=== PATIENT | male | born 1940 | race Caucasian/White ===

== ENCOUNTER 2017-10-05 14:36 | Emergency (ER) | payer MEDICARE, MEDICAID, SELFPAY ==
[2017-10-05 14:36] VITALS: BP 162/70; PULSE 82; RESP 16; TEMP 36.7; O2SAT 97; BMI 43.0
--- NOTE | 2017-10-05 14:54 | CT_ITS ---
STUDY: CT BRAIN WITHOUT CONTRAST REASON FOR EXAM: Male, 77 years old. Fall yesterday, possible syncope. RADIATION DOSAGE (If Supplied By Facility): CTDIvol = ( 44.99 ) mGy, DLP = ( 796.11 ) mGycm TECHNIQUE: Transaxial CT imaging of the brain was performed without administration of intravenous contrast material. Individualized dose optimization techniques were used for this CT. COMPARISON: None. FINDINGS: Normal soft tissue structures. Normal calvarium. There is moderate cerebral atrophy with widening of the extra-axial spaces and ventricular dilatation. There are areas of decreased attenuation within the white matter tracts of the supratentorial brain, consistent with microvascular disease changes. There are small punctate calcifications of the basal ganglia which are seen in the aging brain as a normal variant. Normal brainstem. Normal cerebellum. There is no intracranial hemorrhage. There are no findings of an acute ischemic infarction. Normal visualized paranasal sinuses. CT/Brain/Head without Contrast IMPRESSION: Senescent changes with no evidence of acute intracranial bleed, mass or ischemia. Electronically Signed: Jose A Garrido DO at 15:44 EST , Service support ,
--- NOTE | 2017-10-05 14:55 | RAD_ITS ---
STUDY: X-RAY - RIGHT SHOULDER REASON FOR EXAM: Male, 77 years old. Fall yesterday. Pain. TECHNIQUE: 5 view(s) of the shoulder. COMPARISON: None. FINDINGS: There is generalized osteopenia. There is mild arthrosis of the glenohumeral and acromioclavicular joints. The soft tissue structures are unremarkable. Normal visualized pulmonary apex. RAD/Shoulder min 2 Views IMPRESSION: Osteopenia with arthrosis of the acromioclavicular and glenohumeral joints. No acute osseous abnormality. Electronically Signed: Farhat Addison MD at 15:56 EST , Service support ,
[2017-10-05 15:15] LABS: Hematocrit 26.2 % (40-54); Hemoglobin 8.1 g/dl (13.0-16.5); Mean Corp Hgb Conc 30.9 g/gl (32-36); Mean Corpuscular Hgb 33.3 pg (27.0-32.0); Mean Corpuscular Volume 107.8 fL (80-94); Mean Platelet Vol. 11.7 fl (6.2-12.0); Platelet Count 95 K/mm3 (150-450); RBC Distribution Width CV 15.8 % (11.6-14.6); RBC Distribution Width SD 61.5 fl (35.1-43.9); Red Blood Count 2.43 M/mm3 (4.6-6.2); White Blood Count 6.3 K/mm3 (4.4-11.0)
[2017-10-05 15:16] LABS: Scan Indicated on CBC? Y/N NO
[2017-10-05 15:23] LABS: International Normalized Ratio 1.4; Prothrombin Time (Protime)PT. 16.5 SECONDS (11.7-14.9)
--- NOTE | 2017-10-05 15:25 | RAD_ITS ---
STUDY: X-RAY - LEFT KNEE REASON FOR EXAM: Male, 77 years old. Fall yesterday with bruising and pain. TECHNIQUE: 4 view(s) of the knee. COMPARISON: None. FINDINGS: There is generalized osteopenia. There is mild arthrosis of the medial and lateral femorotibial compartments. There is moderate arthrosis of the patellofemoral compartment with lateral tilt and subluxation of the patella. No acute abnormalities are identified. RAD/Knee 4 or More Views IMPRESSION: Osteopenia with tricompartmental arthrosis. No acute pathology. Electronically Signed: Farhat Addison MD at 15:52 EST , Service support ,
[2017-10-05 15:28] LABS: Anion Gap 9 (5-15); BUN 34 mg/dL (7-18); BUN/Creat Ratio 18.1 RATIO (10-20); Calcium,Total 8.5 mg/dL (8.5-10.1); Chloride 106 mmol/L (98-107); Creatinine, Serum 1.88 mg/dL (0.70-1.30); EST Glomerular Filtration Rate 37 mL/min (>60); Est Glom Filt Rate - Afr Amer 45 mL/min (>60); Estimated Creatinine Clearance 32.38 ml/min; Glucose 183 mg/dL (74-106); Potassium 4.8 mmol/L (3.5-5.1); Sodium Level 140 mmol/L (136-145)
--- NOTE | 2017-10-05 16:12 | ED.DCSUM_ITS ---
- ER Visit Summary Date of Service: 10/05/17 Chief Complaint: Visiting yesterday. He fell when he was outside secondary to icy conditions. History of Present Illness: The patient is a 77 M had a mechanical fall secondary to icy conditions. He remembers falling. He members waking up on the ground. He presents today because of increased headache, right shoulder and left knee pain. He has had nausea and vomiting ?2. He is on no antiplatelet or anticoagulant. He does have history of cirrhosis of the liver and states he bruises easily. He denies any hematemesis, melena hematochezia. He denies any double vision, blurred vision loss of vision. Denies trouble with speech or swallowing. Denies ringing in his ears. Denies bleeding from his nose. He denies any chest pain, palpitations, orthopnea or PND. He denies shortness of breath, cough, dyspnea on exertion. He does complain of abdominal wall pain. Per review of old records he has history of type 2 diabetes requiring insulin, hypertension, hyperlipidemia, end-stage renal disease (stage III), diabetic neuropathy, chronic anemia and hypothyroidism. Physical Examination: Patient's vital signs are noted and remarkable blood pressure of 167/70. Head is atraumatic normocephalic. Pupils are equal round reactive. Extraocular muscles are intact. TMs are pearly white with landmarks noted. Nares patent with no drainage. Posterior pharynx without erythema or exudate. Uvula is midline. There is no dysphonia or dysphasia. Trachea is midline. There is no stridor with auscultation of the neck. There is no clinical findings of basal skull fracture. There is no pain the patient's cervical spine. He does have pain the patient over the proximal humerus. Internal/external rotation causes discomfort as well as abduction. Axillary, median, radial and ulnar function intact. Heart is regular without murmur, gallop or rub. S1 and S2 are normal. Lungs are clear to auscultation with good movement of air bilaterally. Abdomen is prominent with multiple bruises and abrasions noted. There is no guarding or peritoneal findings. He has no pain the patient the pelvis. Examination of the right lower extremity reveals no evidence of trauma with no pain the patient over the greater trochanteric region, patella, joint line, lateral medial malleolus or foot. Examination left lower extremity reveals no pain patient of the greater trochanteric region. There is soft tissue swelling with ecchymosis and pain palpation over the patella. Difficult to determine whether this is soft tissue swelling versus an effusion. He has full extension and flexion. There is no laxity with varus valgus stress testing. Yana's test was negative. There is no pain the patient the lateral medial malleolus. He does have palpable pulses upper and lower extremity. They are diminished lower extremity. GCS is 15. Patient is alert and oriented ?3. Motor is 5/5. Sensation is intact. DTRs are symmetric without clonus or Babinski. Cranial nerves II through XII are intact. Finger to nose to finger was performed adequately. Test Results: The head reveals no acute process per radiologist read and my review. Three-view x-ray the shoulder interpreted by me reveals significant arthritic changes no evidence of fracture. Or view x-ray of the knee reveals significant arthritic changes with no effusion or fracture noted. Hemoglobin is 8.1 with a hematocrit of 26.2. Platelet counts 95,000. He has had low hemoglobin is in the past. The most recent hemoglobin was 6 months ago was 9.1. Glucose is 183 with a creatinine of 1.84. INR is 1.4. Prior creatinine was 1.59 on March 25, 2017. Emergency Department Course and Treatment: Patient had fall with loss of conscious and the fact that he is rated in the age of 77 [address] [place] [address] head rule and the [place] rule radiologic imaging is warranted. Because he has limited range of motion of the shoulder with pain the patient with proximal humerus 8 x-ray was obtained to rule out fracture. Because of the soft tissue swelling with discoloration and pain palpation over the left patella and x-ray was obtained. Because he appears pale CBC was obtained and to assess his platelet count. Since he has history of cirrhosis with history of bruising easily a PT/INR was obtained which was unremarkable. Treatment Plan: Ice to areas of discomfort and [place] since NSAIDs are contraindicated in this patient for numerous reasons. Disposition: To home with daughter Impression: 1. Concussion with loss of consciousness encounter 2. Left knee contusion initial encounter 3. Right shoulder contusion initial encounter 4. Anemia with thrombus cytopenia secondary to cirrhosis of liver, chronic 5. Hyperglycemia type II diabetic 6. End-stage renal disease chronic This note was generated with [employer] software. It may contain incorrect words, spelling, and punctuation that were not noted in review of the chart prior to signing ED Disposition - Plan for ED Patient: Disposition: Home or Assisted Living Chief Complaint: Fall Instructions: ED Prevention Fall, ED Concussion, ED Contusion Lower Ext, ED Contusion Shoulder Prescriptions: Hydrocodone Bitart/Apap 5-325 [[place] 5MG-325MG] 1 tab PO Q6H PRN PRN 4 Days #14 tab PRN Reason: Pain Referrals: Kayla Bernstein NP-C [Primary Care Provider] - 1 Week if not improving
[2017-10-05] MEDS: HYDROcodone Bitartrate/Apap 5/325 Tablet PO (16:22)
[2017-10-05 16:26] VITALS: BP 150/72; PULSE 62; RESP 16; O2SAT 96
== END 2017-10-05 16:26 | disposition home or self-care (01) ==
PROVIDERS: Emergency Provider Emergency Medicine; Family Provider Nurse Practitioner Family; PCP Nurse Practitioner Family
DX: S06.0X9A Concussion with loss of consciousness of unspecified duration, initial encounter (principal); S30.1XXA Contusion of abdominal wall, initial encounter; S80.02XA Contusion of left knee, initial encounter; S40.011A Contusion of right shoulder, initial encounter; W00.0XXA Fall on same level due to ice and snow, initial encounter; Y93.9 Activity, unspecified; Y92.9 Unspecified place or not applicable; Y99.9 Unspecified external cause status; K74.60 Unspecified cirrhosis of liver; I12.0 Hypertensive chronic kidney disease with stage 5 chronic kidney disease or end stage renal disease; E11.22 Type 2 diabetes mellitus with diabetic chronic kidney disease; N18.6 End stage renal disease; E11.40 Type 2 diabetes mellitus with diabetic neuropathy, unspecified; E11.65 Type 2 diabetes mellitus with hyperglycemia; D69.6 Thrombocytopenia, unspecified; D64.9 Anemia, unspecified; E03.9 Hypothyroidism, unspecified; E78.5 Hyperlipidemia, unspecified; E66.9 Obesity, unspecified; Z79.4 Long term (current) use of insulin; Z79.899 Other long term (current) drug therapy
CPT/HCPCS: 70450; 73030; 73564; 80048; 85027; 85610; 99284; A4216

== ENCOUNTER → 2017-10-10 10:19 | Outpatient (CLI) | payer MEDICARE, MEDICAID, SELFPAY ==
[2017-10-10 11:35] LABS: Hematocrit 25.6 % (40-54); Hemoglobin 7.9 g/dl (13.0-16.5); Mean Corp Hgb Conc 30.9 g/gl (32-36); Mean Corpuscular Hgb 33.2 pg (27.0-32.0); Mean Corpuscular Volume 107.6 fL (80-94); Platelet Count 107 K/mm3 (150-450); RBC Distribution Width SD 61.4 fl (35.1-43.9); Red Blood Count 2.38 M/mm3 (4.6-6.2); White Blood Count 5.7 K/mm3 (4.4-11.0)
[2017-10-10 11:36] LABS: Scan Indicated on CBC? Y/N NO
[2017-10-10 12:00] LABS: Protein, Urine (Random) 22.3 mg/dL (<11.9); Protein:Creat Ratio 112 mg/g CRE (0-200)
[2017-10-10 12:08] LABS: Albumin, Serum 3.1 g/dL (3.2-5.0); BUN 31 mg/dL (7-18); BUN/Creat Ratio 16.8 RATIO (10-20); Chloride 101 mmol/L (98-107); Creatinine, Serum 1.84 mg/dL (0.70-1.30); EST Glomerular Filtration Rate 38 mL/min (>60); Est Glom Filt Rate - Afr Amer 46 mL/min (>60); Glucose 212 mg/dL (74-106); Phosphorus 3.1 mg/dL (2.5-4.9); Potassium 4.4 mmol/L (3.5-5.1); Sodium Level 134 mmol/L (136-145)
[2017-10-10 12:11] LABS: PTHIN 33.4 pg/mL (18.4-80.1)
== END ==
PROVIDERS: Family Provider Nurse Practitioner Family; PCP Nurse Practitioner Family; Visit Provider Internal Medicine Nephrology
DX: E11.22 Type 2 diabetes mellitus with diabetic chronic kidney disease (principal); N18.3 Chronic kidney disease, stage 3 (moderate); Z79.4 Long term (current) use of insulin; Z79.899 Other long term (current) drug therapy
CPT/HCPCS: 36415; 80069; 82570; 83970; 84156; 85027

== ENCOUNTER → 2017-10-28 16:02 | Outpatient (CLI) | payer MEDICARE, MEDICAID, SELFPAY ==
[2017-10-28 18:04] LABS: International Normalized Ratio 1.4; Prothrombin Time (Protime)PT. 17.2 SECONDS (11.7-14.9)
[2017-10-28 18:05] LABS: Partial Thromboplast Time 37.7 Seconds (24.1-36.2)
[2017-10-28 18:10] LABS: Anion Gap 9 (5-15); BUN 37 mg/dL (7-18); BUN/Creat Ratio 20.3 RATIO (10-20); Calcium,Total 8.3 mg/dL (8.5-10.1); Chloride 106 mmol/L (98-107); Creatinine, Serum 1.82 mg/dL (0.70-1.30); EST Glomerular Filtration Rate 38 mL/min (>60); Est Glom Filt Rate - Afr Amer 47 mL/min (>60); Glucose 151 mg/dL (74-106); Potassium 4.7 mmol/L (3.5-5.1); Sodium Level 140 mmol/L (136-145)
[2017-10-30 09:24] LABS: AFP, Tumor Marker 3.9 ng/mL (0.0-8.3)
== END ==
PROVIDERS: Family Provider Nurse Practitioner Family; PCP Nurse Practitioner Family; Visit Provider Internal Medicine Gastroenterology
DX: K74.60 Unspecified cirrhosis of liver (principal); Z79.899 Other long term (current) drug therapy
CPT/HCPCS: 36415; 80048; 82105; 85610; 85730

== ENCOUNTER → 2017-11-11 11:15 | Outpatient (CLI) | payer MEDICARE, MEDICAID, SELFPAY ==
[2017-11-11 14:51] LABS: Anion Gap 9 (5-15); BUN 48 mg/dL (7-18); BUN/Creat Ratio 23.3 RATIO (10-20); Calcium,Total 8.9 mg/dL (8.5-10.1); Chloride 101 mmol/L (98-107); Creatinine, Serum 2.06 mg/dL (0.70-1.30); EST Glomerular Filtration Rate 33 mL/min (>60); Est Glom Filt Rate - Afr Amer 40 mL/min (>60); Glucose 111 mg/dL (74-106); Potassium 4.5 mmol/L (3.5-5.1); Sodium Level 136 mmol/L (136-145)
== END ==
PROVIDERS: Family Provider Nurse Practitioner Family; PCP Nurse Practitioner Family; Visit Provider Internal Medicine Gastroenterology
DX: K74.60 Unspecified cirrhosis of liver (principal); Z79.899 Other long term (current) drug therapy
CPT/HCPCS: 36415; 80048

== ENCOUNTER → 2017-12-12 10:26 | Outpatient (CLI) | payer MEDICARE, MEDICAID, SELFPAY ==
[2017-12-12 12:28] LABS: Anion Gap 8 (5-15); BUN 46 mg/dL (7-18); BUN/Creat Ratio 21.2 RATIO (10-20); Calcium,Total 8.3 mg/dL (8.5-10.1); Chloride 103 mmol/L (98-107); Creatinine, Serum 2.17 mg/dL (0.70-1.30); EST Glomerular Filtration Rate 31 mL/min (>60); Est Glom Filt Rate - Afr Amer 38 mL/min (>60); Glucose 171 mg/dL (74-106); Sodium Level 135 mmol/L (136-145)
== END ==
PROVIDERS: Family Provider Nurse Practitioner Family; PCP Nurse Practitioner Family; Visit Provider Internal Medicine Gastroenterology
DX: K74.60 Unspecified cirrhosis of liver (principal); Z79.899 Other long term (current) drug therapy
CPT/HCPCS: 36415; 80048

== ENCOUNTER 2017-12-19 16:57 | Emergency (ER) | payer MEDICARE, SELFPAY ==
[2017-12-19 16:58] VITALS: BP 137/68; PULSE 80; RESP 16; TEMP 35.9; O2SAT 100; BMI 39.3
--- NOTE | 2017-12-19 17:52 | EKG12_ITS ---
Test Reason : SOB Blood Pressure : / mmHG Vent. Rate : 077 BPM Atrial Rate : 077 BPM P-R Int : 174 ms QRS Dur : 090 ms QT Int : 370 ms P-R-T Axes : 041 039 046 degrees QTc Int : 418 ms Normal sinus rhythm Normal ECG Confirmed by OTILIA BARDALES ([id number]), city editor ANGIE ORTEGA ([id number]) on 12/23/2017 3:58:17 PM Referred By: AUDRA Confirmed By:OTILIA BARDALES
--- NOTE | 2017-12-19 18:04 | RAD_ITS ---
STUDY: X-RAY CHEST REASON FOR EXAM: Male, 77 years old. Esophageal pain. History of esophageal polyps TECHNIQUE: 2 views COMPARISON: Prior portable chest of November 23, 2016. FINDINGS: Lung melendez are moderately well-expanded without new consolidation or focal atelectasis. Negative for substantial pleural effusion. Normal size heart. Normal mediastinum and jeannine. Normal visualized pulmonary arteries. There is atherosclerotic calcification of the aortic arch with tortuosity. There are diffuse degenerative changes of the visualized thoracic spine. Normal visualized ribs, clavicles, and shoulders. There is no demonstrated abnormality of the visualized soft tissue structures of the upper abdomen. RAD/Chest PA and Lateral IMPRESSION: No acute cardiopulmonary findings or changes. Negative for new consolidation, focal atelectasis, pleural effusion or cardiomegaly. Electronically Signed: Vannesa Gusman MD at 18:33 EDT , Service support ,
[2017-12-19 18:26] LABS: Bedside Glucose 132 mg/dL (70-110)
[2017-12-19 18:50] VITALS: BP 148/66; PULSE 78; RESP 20; O2SAT 96
[2017-12-19 19:20] LABS: Absolute Lymphocyte Count 0.72 X10^3/ul (0.83-4.51); Absolute Neutrophil Count 4.8 X10^3/uL (2.0-7.7); Basophil# 0.01 X10^3/uL; Basophil% 0.2 % (0-1); Eosinophil# 0.02 X10^3/uL; Eosinophils% 0.3 % (0-5); Hematocrit 22.6 % (40-54); Hemoglobin 7.1 g/dl (13.0-16.5); Lymphocyte # 0.72 X10^3/ul (4.0); Lymphocyte % 10.9 % (19-41); Mean Corp Hgb Conc 31.4 g/gl (32-36); Mean Corpuscular Volume 111.3 fL (80-94); Mean Platelet Vol. 11.7 fl (6.2-12.0); Monocyte# 0.98 X10^3/uL; Monocyte% 14.9 % (0-10); Neutrophil # 4.81 X10^3/uL (2.7-7.7); Neutrophil % 73.1 % (47-70); Platelet Count 84 K/mm3 (150-450); RBC Distribution Width CV 16.6 % (11.6-14.6); RBC Distribution Width SD 67.1 fl (35.1-43.9); Red Blood Count 2.03 M/mm3 (4.6-6.2); White Blood Count 6.6 K/mm3 (4.4-11.0)
[2017-12-19 19:29] LABS: Differential Indicated SCAN CRITERIA MET; POSITIVE COUNT NO; POSITIVE DIFFERENTIAL NO; POSITIVE MORPHOLOGY YES
[2017-12-19 19:30] LABS: ALB/GLOB Ratio 0.7 RATIO (0.9-2.4); AST(SGOT) 48 U/L (15-37); Alanine Aminotransfer ALT/SGPT 26 U/L (16-61); Albumin, Serum 3.2 g/dL (3.2-5.0); Alkaline Phosphatase 46 U/L (45-117); Anion Gap 7 (5-15); BUN 48 mg/dL (7-18); Calcium,Total 8.4 mg/dL (8.5-10.1); Chloride 105 mmol/L (98-107); Creatinine, Serum 2.18 mg/dL (0.70-1.30); EST Glomerular Filtration Rate 31 mL/min (>60); Est Glom Filt Rate - Afr Amer 38 mL/min (>60); Estimated Creatinine Clearance 29.74 ml/min; Globulin 4.6 g/dL (2.2-4.2); Glucose 125 mg/dL (74-106); Lipase 4224 U/L (73-393); Potassium 5.7 mmol/L (3.5-5.1); Protein, Total 7.8 g/dL (6.4-8.2); Sodium Level 136 mmol/L (136-145)
[2017-12-19 19:45] LABS: International Normalized Ratio 1.4; Prothrombin Time (Protime)PT. 17.6 SECONDS (11.7-14.9)
[2017-12-19 19:46] LABS: Partial Thromboplast Time 36.8 Seconds (24.1-36.2)
[2017-12-19 19:56] LABS: Anisocytosis 1+; Macrocytosis 2+; Polychromasia RARE
[2017-12-19 19:58] LABS: Ovalocyte RARE
[2017-12-19 20:48] VITALS: BP 161/67; PULSE 80; RESP 18; O2SAT 99
[2017-12-19 20:49] VITALS: BP 161/67; PULSE 80; RESP 18; TEMP 35.9; O2SAT 99
[2017-12-19] MEDS: Calcium Chloride 1 GM/10 ML Syringe IV (21:18)
[2017-12-19] MEDS: Dextrose 50%-Water 25 GM/50 ML DISP.SYRIN IV (21:18)
--- NOTE | 2017-12-19 21:46 | ED.DCSUM_ITS ---
- ER Visit Summary Date of Service: 12/19/17 Chief Complaint: Chest and epigastric pain History of Present Illness: The patient is a 77 M who presents with substernal chest pain and epigastric pain that has been getting worse over the past couple days. Patient states the pain is over the substernal and epigastric areas. Patient denies any radiation of the pain. Patient describes the pain is constant aching. Patient states nothing seems to make the pain better or worse. Family states that the patient has a history of anemia and his most recent hemoglobin was 7.1. Patient states his stools have been dark but he takes iron. Patient denies any shortness of breath. Patient denies any nausea or vomiting. Physical Examination: Vital signs are stable. Patient is afebrile. Patient is in no acute distress. Patient does have some pallor. Pupils are equal, round, reactive to light bilaterally. Extraocular muscles are intact. The cavity is somewhat pale and clear. Neck is supple. Trachea is midline. There is no JVD or lymphadenopathy. Heart was regular rate and rhythm. Lungs are clear and equal bilateral. Abdomen is soft. There is some epigastric tenderness. There is no rebound or guarding noted. Cranial nerves II through XII are intact. There are no focal motor or sensory deficits noted. The remaining physical exam is within normal limits. Test Results: EKG showed normal sinus rhythm with a rate of 77. There are no acute ST or T-wave changes. CBC shows a hemoglobin of 7.1 and hematocrit 22.6. Creatinine was elevated 2.18 which is chronic. BUN was also elevated at 48. Lipase was elevated at 4224. INR was elevated at 1.4. Emergency Department Course and Treatment: Case was discussed with the hospitalist. There is no gastroenterology coverage here at [facility] this weekend. He recommended transferring the patient to another facility. Patient and family requested to be transferred to [facility]. The case was discussed with the hospitalist from [facility]. Patient will be accepted there under the service of Dr. Han. Patient and family understood and were agreeable with the plan. All questions were answered. Disposition: Transferred to [facility] Impression: Acute pancreatitis, anemia This note was generated with [employer] dictation software. It may contain incorrect words, spelling, and punctuation that were not noted in review of the chart prior to signing ED Disposition - Plan for ED Patient: Disposition: Acute Care Hospital - Other Chief Complaint: Other, Pain/Inj Diagnosis: Acute pancreatitis, Anemia Referrals: Kayla Bernstein NP-C [Primary Care Provider] -
--- NOTE | 2017-12-19 23:14 | ED.RN ---
CALLED THE [facility] TRANSFER LINE AND SPOKE WITH SHANICE TO INITIATE A TRANSFER TO [facility]. SHANICE TOOK PATIENT'S INFORMATION AND STATED SHE WILL CONTACT [facility] AND CALL US BACK.
[2017-12-19 23:26] VITALS: BP 135/59; PULSE 89; RESP 18; O2SAT 95
[2017-12-20] MEDS: Morphine 4 MG/ML Syringe IV (00:20)
[2017-12-20 00:25] VITALS: BP 138/66; PULSE 84; RESP 18; O2SAT 96
[2017-12-20 00:36] LABS: Bedside Glucose 113 mg/dL (70-110)
[2017-12-20 02:00] VITALS: BP 134/70; PULSE 85; RESP 17; O2SAT 95
[2017-12-20 02:01] VITALS: BP 134/70; PULSE 85; RESP 17; TEMP 35.9; O2SAT 95
== END 2017-12-20 03:08 | disposition short-term general hospital (02) ==
PROVIDERS: Emergency Provider Emergency Medicine; Family Provider Nurse Practitioner Family; PCP Nurse Practitioner Family
DX: K85.90 Acute pancreatitis without necrosis or infection, unspecified (principal); D64.9 Anemia, unspecified; Z79.4 Long term (current) use of insulin; Z79.899 Other long term (current) drug therapy
CPT/HCPCS: 71046; 80053; 82962; 83690; 85025; 85610; 85730; 93005; 96374; 96375; 99285; J7030; A4216

== ENCOUNTER → 2018-01-27 15:37 | Outpatient (CLI) | payer MEDICARE, MEDICAID, SELFPAY ==
--- NOTE | 2018-01-27 15:37 | DT_ITS ---
This patient was seen during an EMR downtime January 26, 2018 - February 02, 2018. This patient may have a combination of paper and electronic documentation or all paper documentation. All documentation is viewable within the e-chart portion of [employer] for each patient visit.
[2018-02-02 16:11] LABS: Hematocrit 24.6 % (40-54); Hemoglobin 7.7 g/dl (13.0-16.5); Red Blood Count 2.24 M/mm3 (4.6-6.2); White Blood Count 7.6 K/mm3 (4.4-11.0)
[2018-02-02 16:12] LABS: Mean Corp Hgb Conc 31.3 g/gl (32-36); Mean Corpuscular Hgb 34.4 pg (27.0-32.0); Mean Corpuscular Volume 109.8 fL (80-94); Mean Platelet Vol. 13.1 fl (6.2-12.0); Platelet Count 90 K/mm3 (150-450); RBC Distribution Width CV 19.3 % (11.6-14.6)
[2018-02-02 16:13] LABS: Scan Indicated on CBC? Y/N YES- FLAGS NOTED
[2018-02-02 17:20] LABS: Albumin, Serum 3.4 g/dL (3.2-5.0); BUN 42 mg/dL (7-18); BUN/Creat Ratio 19.4 RATIO (10-20); Calcium,Total 8.6 mg/dL (8.5-10.1); Chloride 107 mmol/L (98-107); Creatinine, Serum 2.16 mg/dL (0.70-1.30); EST Glomerular Filtration Rate 32 mL/min (>60); Est Glom Filt Rate - Afr Amer 39 mL/min (>60); Ferritin 36 ng/mL (26-388); Glucose 132 mg/dL (74-106); Iron 308 ug/dL (65-175); Iron Binding Capacity,Total 396 ug/dL (250-450); PERCENT IRON SATURATION 77.8 % (15.0-55.0); Phosphorus 3.7 mg/dL (2.5-4.9); Potassium 5.2 mmol/L (3.5-5.1); Sodium Level 142 mmol/L (136-145)
== END ==
PROVIDERS: Visit Provider Internal Medicine Gastroenterology
DX: K74.60 Unspecified cirrhosis of liver (principal); E11.22 Type 2 diabetes mellitus with diabetic chronic kidney disease; N18.3 Chronic kidney disease, stage 3 (moderate); D64.9 Anemia, unspecified
CPT/HCPCS: 36415; 80069; 82728; 83540; 83550; 85027

== ENCOUNTER → 2018-01-28 09:00 | Outpatient (CLI) | payer MEDICARE, MEDICAID, SELFPAY ==
--- NOTE | 2018-01-28 09:00 | DT_ITS ---
This patient was seen during an EMR downtime January 26, 2018 - February 02, 2018. This patient may have a combination of paper and electronic documentation or all paper documentation. All documentation is viewable within the e-chart portion of [employer] for each patient visit.
== END ==
PROVIDERS: Family Provider Nurse Practitioner Family; PCP Nurse Practitioner Family; Visit Provider Internal Medicine Hematology & Oncology
DX: D64.9 Anemia, unspecified (principal); N18.9 Chronic kidney disease, unspecified; K92.2 Gastrointestinal hemorrhage, unspecified
CPT/HCPCS: 36430; 86850; 86900; 86920; 86922; J7040; P9016; P9040; A4216

== ENCOUNTER → 2018-02-12 08:33 | Outpatient (CLI) | payer MEDICARE, MEDICAID, SELFPAY ==
[2018-02-12] VITALS (7 sets, daily range): BP systolic 109–126; BP diastolic 49–64; PULSE 67–76; RESP 16–18; TEMP 36.4–37; O2SAT 95–98; BMI 40.6
[2018-02-12] MEDS: Acetaminophen 325 MG Tablet 650 MG PO (09:03)
== END ==
PROVIDERS: Family Provider Nurse Practitioner Family; PCP Nurse Practitioner Family; Visit Provider Internal Medicine Hematology & Oncology
DX: Z51.89 Encounter for other specified aftercare (principal); K92.2 Gastrointestinal hemorrhage, unspecified; N18.2 Chronic kidney disease, stage 2 (mild)
CPT/HCPCS: 36430; 86850; 86900; 86920; 86922; J7040; P9016; A4216

== ENCOUNTER → 2018-02-20 08:33 | Outpatient (CLI) | payer MEDICARE, MEDICAID, SELFPAY ==
[2018-02-20] VITALS (9 sets, daily range): BP systolic 115–141; BP diastolic 43–59; PULSE 67–79; RESP 16–18; TEMP 36.2–36.6; O2SAT 96–99; BMI 42.5
[2018-02-20] MEDS: Acetaminophen 325 MG Tablet 650 MG PO (09:02)
[2018-02-20] MEDS: Furosemide 20 MG/2 ML VIAL IV (12:27)
== END ==
PROVIDERS: Family Provider Nurse Practitioner Family; PCP Nurse Practitioner Family; Visit Provider Internal Medicine Hematology & Oncology
DX: K92.2 Gastrointestinal hemorrhage, unspecified (principal); N18.9 Chronic kidney disease, unspecified
CPT/HCPCS: 36430; 86850; 86900; 86920; 86922; J7040; P9016; A4216; J0897; J1940

== ENCOUNTER → 2018-03-11 08:10 | Outpatient (CLI) | payer MEDICARE, MEDICAID, SELFPAY ==
[2018-03-11] VITALS (8 sets, daily range): BP systolic 108–142; BP diastolic 54–78; PULSE 74–82; RESP 16–18; TEMP 36–36.8; O2SAT 96–99; BMI 44.1
[2018-03-11] MEDS: Acetaminophen 325 MG Tablet 650 MG PO (08:28)
[2018-03-11] MEDS: Furosemide 20 MG/2 ML VIAL IV (11:52)
== END ==
PROVIDERS: Family Provider Nurse Practitioner Family; PCP Nurse Practitioner Family; Visit Provider Internal Medicine Hematology & Oncology
DX: Z51.89 Encounter for other specified aftercare (principal); K92.2 Gastrointestinal hemorrhage, unspecified; N18.9 Chronic kidney disease, unspecified
CPT/HCPCS: 36430; 86850; 86900; 86920; 86922; J7040; P9016; A4216; J1940

== ENCOUNTER → 2018-03-24 15:18 | Outpatient (CLI) | payer MEDICARE, MEDICAID, SELFPAY ==
[2018-03-24 18:02] LABS: Anion Gap 9 (5-15); BUN 33 mg/dL (7-18); Calcium,Total 8.4 mg/dL (8.5-10.1); Chloride 109 mmol/L (98-107); Creatinine, Serum 1.74 mg/dL (0.70-1.30); EST Glomerular Filtration Rate 40 mL/min (>60); Est Glom Filt Rate - Afr Amer 49 mL/min (>60); Glucose 132 mg/dL (74-106); Potassium 3.9 mmol/L (3.5-5.1); Sodium Level 146 mmol/L (136-145)
== END ==
PROVIDERS: Family Provider Nurse Practitioner Family; PCP Nurse Practitioner Family; Visit Provider Internal Medicine Gastroenterology
DX: K74.60 Unspecified cirrhosis of liver (principal); E11.9 Type 2 diabetes mellitus without complications
CPT/HCPCS: 36415; 80048; 86850; 86900; 86920; 86922

== ENCOUNTER → 2018-03-25 08:06 | Outpatient (CLI) | payer MEDICARE, MEDICAID, SELFPAY ==
[2018-03-25] VITALS (7 sets, daily range): BP systolic 101–155; BP diastolic 45–73; PULSE 75–95; RESP 16–18; TEMP 36.2–36.7; O2SAT 96–98; BMI 41.3
[2018-03-25] MEDS: Acetaminophen 325 MG Tablet 650 MG PO (08:31)
[2018-03-25] MEDS: Furosemide 20 MG/2 ML VIAL IV (11:57)
== END ==
PROVIDERS: Family Provider Nurse Practitioner Family; PCP Nurse Practitioner Family; Visit Provider Internal Medicine Hematology & Oncology
DX: Z51.89 Encounter for other specified aftercare (principal); K92.2 Gastrointestinal hemorrhage, unspecified; N18.9 Chronic kidney disease, unspecified
CPT/HCPCS: 36430; 86850; 86900; 86920; 86922; J7040; P9016; A4216; J1940

== ENCOUNTER 2018-04-04 14:43 | Emergency (ER) | payer MEDICARE, MEDICAID, SELFPAY ==
[2018-04-04 14:43] VITALS: BP 143/67; PULSE 90; RESP 20; TEMP 36.6; O2SAT 94; BMI 29.5
[2018-04-04 14:56] VITALS: BP 140/62; PULSE 89; RESP 20; O2SAT 95
[2018-04-04 15:07] VITALS: O2SAT 94
--- NOTE | 2018-04-04 15:10 | ED.DCSUM_ITS ---
- ER Visit Summary Date of Service: 04/04/18 Chief Complaint: Shortness of breath History of Present Illness: The patient is a 77 M the family reports constant cruz between fluid retention and kidney function. Patient has had increasing swelling over the past couple weeks. His fingertips of his left hand split open this week because they are so puffy. He has had minimal shortness of breath at rest but increased shortness of breath with exertion. He denies chest pain. Medication list is reviewed and he is currently on 80 mg of Lasix once a day. Physical Examination: Blood pressure is 143/67, temperature 98, heart rate 90, respiratory rate 20, pulse ox 94% on room air. Patient is sitting upright in a bedside chair. He is in no acute distress and speaking full sentences. Head neck examination is unremarkable. Heart is regular rate and rhythm. He does have a 3/6 murmur noted. Lung sounds are slightly diminished at the bases but overall clear. Abdomen is soft, obese, nontender. Active bowel sounds noted throughout. Upper extremity examination reveals dry cracked skin at the distal fingertips of his left index and long fingers. Lower extremity examination reveals 3+ edema that is symmetric. Test Results: EKG is sinus 88 with no sign of acute ischemia. Two-view chest x- ray shows slightly prominent interstitial markings and mild cardiomegaly. CBC was normal white count. Hemoglobin 7.5 and platelet count is 93,000. Chemistry studies reveal a BUN of 41 and a creatinine of 1.96. LFTs are unremarkable. Troponin is negative. BNP is 135. Emergency Department Course and Treatment: Patient did require assistance getting up to bedside commode. Family states they have assistive devices at home and do feel comfortable with him at home. I spoke with the patient's microfiche camera operator, Dr. Pal Augustine. Patient is to increase his Lasix to 80 mg twice a day for the next 3 days. He also wishes to add Aldactone 25 mg twice daily. The wound to the left hand will be cleansed and dressed. He will be given Keflex to prevent infection. Treatment Plan: [] Disposition: Discharge Impression: CHF This note was generated with [employer] dictation software. It may contain incorrect words, spelling, and punctuation that were not noted in review of the chart prior to signing ED Disposition - Plan for ED Patient: Chief Complaint: Shortness of Breath Referrals: Kayla Bernstein, CHILDREN'S COUNSELOR-C [Primary Care Provider] -
--- NOTE | 2018-04-04 15:20 | RAD_ITS ---
STUDY: X-RAY CHEST REASON FOR EXAM: Male, 77 years old. Shortness of breath TECHNIQUE: PA and lateral views of the chest. COMPARISON: 12/19/2017 FINDINGS: Cardiac monitoring leads overlie the chest. The interstitial markings are prominent. There is no focal consolidation. There is no demonstrated pleural abnormality. There is mild cardiac enlargement. Normal mediastinum and jeannine. Normal visualized pulmonary arteries. There is mild calcification of the aortic arch. There are diffuse degenerative changes of the visualized thoracic spine. The bones are demineralized. There is no demonstrated abnormality of the visualized soft tissue structures of the upper abdomen. RAD/Chest PA and Lateral IMPRESSION: Slightly prominent interstitial markings with mild cardiomegaly. No focal consolidation. Electronically Signed: Kin Groves DO at 15:51 EDT Tel , Service support ,
[2018-04-04 15:46] VITALS: BP 136/60; PULSE 85; RESP 26; O2SAT 96
[2018-04-04 15:51] LABS: Absolute Lymphocyte Count 0.89 X10^3/ul (0.83-4.51); Absolute Neutrophil Count 3.7 X10^3/uL (2.0-7.7); Basophil# 0.02 X10^3/uL; Basophil% 0.4 % (0-1); Eosinophil# 0.19 X10^3/uL; Eosinophils% 3.4 % (0-5); Hematocrit 24.5 % (40-54); Hemoglobin 7.5 g/dl (13.0-16.5); Lymphocyte # 0.89 X10^3/ul (4.0); Lymphocyte % 15.9 % (19-41); Mean Corp Hgb Conc 30.6 g/gl (32-36); Mean Corpuscular Volume 107.9 fL (80-94); Mean Platelet Vol. 12.7 fl (6.2-12.0); Monocyte# 0.77 X10^3/uL; Monocyte% 13.8 % (0-10); Neutrophil # 3.71 X10^3/uL (2.7-7.7); Neutrophil % 66.1 % (47-70); Platelet Count 93 K/mm3 (150-450); RBC Distribution Width CV 20.9 % (11.6-14.6); RBC Distribution Width SD 81.7 fl (35.1-43.9); Red Blood Count 2.27 M/mm3 (4.6-6.2); White Blood Count 5.6 K/mm3 (4.4-11.0)
[2018-04-04 15:56] LABS: Differential Indicated SCAN CRITERIA MET; POSITIVE COUNT NO; POSITIVE DIFFERENTIAL NO; POSITIVE MORPHOLOGY YES
[2018-04-04 15:59] LABS: International Normalized Ratio 1.4
[2018-04-04 16:00] LABS: Partial Thromboplast Time 38.3 Seconds (24.1-36.2)
[2018-04-04 16:12] LABS: AST(SGOT) 28 U/L (15-37); Alanine Aminotransfer ALT/SGPT 25 U/L (16-61); Albumin, Serum 3.2 g/dL (3.2-5.0); Alkaline Phosphatase 64 U/L (45-117); Anion Gap 13 (5-15); BUN 41 mg/dL (7-18); BUN/Creat Ratio 20.9 RATIO (10-20); Bilirubin, Direct 0.33 mg/dL (0.00-0.30); Calcium,Total 8.1 mg/dL (8.5-10.1); Chloride 104 mmol/L (98-107); Creatinine, Serum 1.96 mg/dL (0.70-1.30); EST Glomerular Filtration Rate 35 mL/min (>60); Est Glom Filt Rate - Afr Amer 43 mL/min (>60); Estimated Creatinine Clearance 31.06 ml/min; Globulin 4.3 g/dL (2.2-4.2); Glucose 136 mg/dL (74-106); Potassium 3.8 mmol/L (3.5-5.1); Protein, Total 7.5 g/dL (6.4-8.2); Sodium Level 144 mmol/L (136-145)
[2018-04-04 16:17] LABS: Anisocytosis 1+; Platelet Estimate MOD DEC (ADEQ)
[2018-04-04 16:18] LABS: Hypochromasia RARE; Macrocytosis 1+; Ovalocyte RARE
[2018-04-04 16:50] LABS: BNP,B-Type NATRIURETIC PEPTIDE 135.6 pg/mL (0-100)
[2018-04-04 17:18] VITALS: BP 136/59; PULSE 84; RESP 20; O2SAT 95
--- NOTE | 2018-04-04 18:12 | ED.DEP ---
ED Disposition - Plan for ED Patient: Disposition: Home or Assisted Living Chief Complaint: Shortness of Breath Instructions: ED CHF General Prescriptions: Cephalexin [Keflex] 500 mg PO BID #14 capsule Spironolactone [Aldactone] 25 mg PO BID #60 tablet Referrals: Kayla Bernstein NP-C [Primary Care Provider] - Additional Instructions: Increase your Lasix to 80mg twice a day for the next 3 days only. You will be given Aldactone as a second water pill
[2018-04-04 18:33] VITALS: BP 147/69; PULSE 74; RESP 20; O2SAT 94
== END 2018-04-04 18:46 | disposition home or self-care (01) ==
PROVIDERS: Emergency Provider Emergency Medicine; Family Provider Nurse Practitioner Family; PCP Nurse Practitioner Family
DX: I13.0 Hypertensive heart and chronic kidney disease with heart failure and stage 1 through stage 4 chronic kidney disease, or unspecified chronic kidney disease (principal); E11.22 Type 2 diabetes mellitus with diabetic chronic kidney disease; N18.9 Chronic kidney disease, unspecified; D64.9 Anemia, unspecified; I51.7 Cardiomegaly; S61.402A Unspecified open wound of left hand, initial encounter; X58.XXXA Exposure to other specified factors, initial encounter; Y93.9 Activity, unspecified; Y92.9 Unspecified place or not applicable; Y99.9 Unspecified external cause status; E66.9 Obesity, unspecified; Z79.82 Long term (current) use of aspirin; Z79.4 Long term (current) use of insulin; Z79.899 Other long term (current) drug therapy
CPT/HCPCS: 71046; 80048; 80076; 83880; 84484; 85025; 85610; 85730; 93005; 99284; A4216

== ENCOUNTER → 2018-04-10 09:33 | Outpatient (CLI) | payer MEDICARE, MEDICAID, SELFPAY ==
[2018-04-10] VITALS (7 sets, daily range): BP systolic 116–144; BP diastolic 49–64; PULSE 72–78; RESP 16–18; TEMP 36.2–36.8; O2SAT 95–100; BMI 41.2
[2018-04-10] MEDS: Acetaminophen 325 MG Tablet 650 MG PO (09:56)
[2018-04-10] MEDS: Furosemide 40 MG/4 ML Vial IV (12:57)
== END ==
PROVIDERS: Family Provider Nurse Practitioner Family; PCP Nurse Practitioner Family; Visit Provider Internal Medicine Hematology & Oncology
DX: Z51.89 Encounter for other specified aftercare (principal); K92.2 Gastrointestinal hemorrhage, unspecified; N18.4 Chronic kidney disease, stage 4 (severe)
CPT/HCPCS: 36430; 86850; 86900; 86920; 86922; J7040; P9016; A4216; J1940

== ENCOUNTER 2018-04-18 09:08 | Outpatient (CLI) | payer MEDICARE, MEDICAID, SELFPAY ==
[2018-04-18] VITALS (8 sets, daily range): BP systolic 104–120; BP diastolic 44–52; PULSE 62–84; RESP 16–20; TEMP 36.6–37.4; O2SAT 97–99
[2018-04-18] MEDS: Acetaminophen 325 MG Tablet 650 MG PO (10:43)
[2018-04-18] MEDS: 0.9% NaCl Peripheral Flush Adult/Peds IV ×3 (10:44→12:44)
[2018-04-18] MEDS: Furosemide 20 MG/2 ML VIAL IV (12:42)
== END 2018-04-18 15:54 | disposition home or self-care (01) ==
LOC: MEDOUTP 09:10 → PCU 09:11
PROVIDERS: Family Provider Nurse Practitioner Family; PCP Nurse Practitioner Family; Visit Provider Internal Medicine Hematology & Oncology
DX: Z51.89 Encounter for other specified aftercare (principal); D64.9 Anemia, unspecified
CPT/HCPCS: 36430; 86850; 86900; 86920; J7040; P9016; A4216; J1940

== ENCOUNTER → 2018-05-08 07:59 | Outpatient (CLI) | payer MEDICARE, SELFPAY ==
[2018-05-08] VITALS (9 sets, daily range): BP systolic 116–133; BP diastolic 55–67; PULSE 65–75; RESP 16–18; TEMP 36.6–37.2; O2SAT 94–98; BMI 40.6
[2018-05-08] MEDS: Acetaminophen 500 MG Tablet 1000 MG PO (08:32)
[2018-05-08] MEDS: Furosemide 20 MG/2 ML VIAL IV (12:27)
== END ==
PROVIDERS: Family Provider Nurse Practitioner Family; PCP Nurse Practitioner Family; Visit Provider Internal Medicine Hematology & Oncology
DX: Z51.89 Encounter for other specified aftercare (principal); K92.2 Gastrointestinal hemorrhage, unspecified; N18.9 Chronic kidney disease, unspecified
CPT/HCPCS: 36430; 86644; 86850; 86900; 86920; 86922; J7040; P9016; A4216; J1940

== ENCOUNTER → 2018-07-22 09:08 | Outpatient (CLI) | payer OTHER, SELFPAY ==
[2018-07-22 09:23] VITALS: BP 115/55; PULSE 72; RESP 16; TEMP 36.4; O2SAT 98; BMI 39.9
[2018-07-22] MEDS: Acetaminophen 325 MG Tablet 650 MG PO (09:29)
[2018-07-22 10:00] VITALS: BP 121/60; PULSE 71; RESP 18; TEMP 36.4
[2018-07-22 11:00] VITALS: BP 119/43; PULSE 70; TEMP 36.4
[2018-07-22 12:00] VITALS: BP 133/50; PULSE 77; RESP 18; TEMP 36; O2SAT 99
[2018-07-22] MEDS: Furosemide 20 MG/2 ML VIAL IV (12:59)
[2018-07-22 13:00] VITALS: BP 113/52; PULSE 77; RESP 16; TEMP 36.6; O2SAT 98
--- OUTSIDE RECORDS SUMMARY | 2018-09-16 15:01 | XMS RPT_ITS ---
:1940 Author Organization OHIP Support Name Relationship Address Phone ADDIE MEZA Unavailable Unavailable + DERRICK THARON Unavailable Unavailable + R Unavailable Unavailable Unavailable DERRICK, ADDIE Unavailable [address] + [place] [address] R Unavailable Unavailable Unavailable DERRICK, ADDIE Unavailable [address] + [place] [address] R Unavailable Unavailable Unavailable DERRICK, ADDIE Unavailable [address] + [place] [address] R Unavailable Unavailable Unavailable DERRICK, ADDIE Unavailable [address] + [place] [address] DERRICK, ADDIE Unavailable Unavailable + DERRICK, THARON Unavailable Unavailable + R Unavailable Unavailable Unavailable DERRICK, ADDIE Unavailable [address] + [place] [address] R Unavailable Unavailable Unavailable DERRICK, ADDIE Unavailable [address] + [place] [address] R Unavailable Unavailable Unavailable DERRICK, ADDIE Unavailable [address] + [place] [address] R Unavailable Unavailable Unavailable DERRICK, ADDIE Unavailable [address] + [place] [address] R Unavailable Unavailable Unavailable DERRICK, ADDIE Unavailable [address] + [place] [address] R Unavailable Unavailable Unavailable DERRICK, ADDIE Unavailable [address] + [place] [address] DERRICK, ADDIE Unavailable Unavailable + DERRICK, THARON Unavailable Unavailable + R Unavailable Unavailable Unavailable DERRICK, ADDIE Unavailable [address] + [place] [address] R Unavailable Unavailable Unavailable DERRICK, ADDIE Unavailable [address] + [place] [address] R Unavailable Unavailable Unavailable DERRICK, ADDIE Unavailable [address] + [place] [address] R Unavailable Unavailable Unavailable DERRICK, ADDIE Unavailable [address] + [place] [address] R Unavailable Unavailable Unavailable DERRICK, ADDIE Unavailable [address] + [place] [address] R Unavailable Unavailable Unavailable DERRICK, ADDIE Unavailable [address] + [place] [address] R Unavailable Unavailable Unavailable DERRICK, ADDIE Unavailable [address] + [place] [address] R Unavailable Unavailable Unavailable DERRICK, ADDIE Unavailable [address] + [place] [address] R Unavailable Unavailable Unavailable DERRICK, ADDIE Unavailable [address] + [place] [address] R Unavailable Unavailable Unavailable DERRICK, ADDIE Unavailable [address] + [place] [address] R Unavailable Unavailable Unavailable DERRICK, ADDIE Unavailable [address] + [place] [address] Care Team Providers Name Role Phone Jocelyn Ball Attending Unavailable Kayla Bernstein HARNESS INSTALLER-C Primary Care Unavailable Kayla Bernstein HARNESS INSTALLER-C Primary Care Unavailable Ronen Vance Attending Unavailable Jocelyn Ball Attending Unavailable Jocelyn Ball Referring Unavailable Kayla Bernstein HARNESS INSTALLER-C Primary Care Unavailable Felipe Hodges Attending Unavailable Felipe Hodges Referring Unavailable Kayla Bernstein HARNESS INSTALLER-C Primary Care Unavailable Jocelyn Ball Attending Unavailable Ziol, Kayla HARNESS INSTALLER-C Primary Care Unavailable Felipe Hodges Attending Unavailable Felipe Hodges Referring Unavailable Ziol, Kayla HARNESS INSTALLER-C Primary Care Unavailable Felipe Hodges Attending Unavailable Ziol, Kayla HARNESS INSTALLER-C Primary Care Unavailable Ziol, Kayla HARNESS INSTALLER-C Primary Care Unavailable Taqueria Charles Attending Unavailable Deion Pardo Attending Unavailable Edvin, Lapman Referring Unavailable Ziol, Kayla HARNESS INSTALLER-C Primary Care Unavailable Felipe Hodges Attending Unavailable Felipe Hodges Referring Unavailable Primay Care Physicia, No Primary Care Unavailable Jocelyn Ball Consulting Unavailable Jocelyn Ball Attending Unavailable Ziol, Kayla HARNESS INSTALLER-C Primary Care Unavailable EdvinKaylaman Attending Unavailable Edvin, Lapman Referring Unavailable Ziol, Kayla HARNESS INSTALLER-C Primary Care Unavailable Kayla Pardoman Attending Unavailable Edvin, Lapman Referring Unavailable Ziol, Kayla HARNESS INSTALLER-C Primary Care Unavailable Edvin, Kaylaman Attending Unavailable Edvin, Lapman Referring Unavailable Ziol, Kayla HARNESS INSTALLER-C Primary Care Unavailable Felipe Hodges Attending Unavailable Felipe Hodges Referring Unavailable Ziol, Kayla HARNESS INSTALLER-C Primary Care Unavailable Juan Lawrence Attending Unavailable Masci, Juan Referring Unavailable Ziol, Kayla HARNESS INSTALLER-C Primary Care Unavailable Ziol, Kayla HARNESS INSTALLER-C Primary Care Unavailable Fabiana Enriquez Attending Unavailable EdvinKaylaman Attending Unavailable Edvin, Lapman Referring Unavailable Ziol, Kayla HARNESS INSTALLER-C Primary Care Unavailable Juan Lawrence Attending Unavailable Masci, Juan Referring Unavailable Ziol, Kayla HARNESS INSTALLER-C Primary Care Unavailable EdvinKaylaman Attending Unavailable Edvin, Lapman Referring Unavailable Ziol, Kayla HARNESS INSTALLER-C Primary Care Unavailable EdvinKaylaman Attending Unavailable Edvin, Lapman Referring Unavailable Ziol, Kayla HARNESS INSTALLER-C Primary Care Unavailable ZIOL, KAYLA (HARNESS INSTALLER) Referring Unavailable PAL KIM Attending Unavailable ZIOL, KAYLA (HARNESS INSTALLER) Referring Unavailable GUILLE, BRIAN Admitting Unavailable BEATA BARBOUR Attending Unavailable IRENE RODRIGUES Consulting Unavailable TRACIE SANDERS, DR. FOLEY Attending Unavailable TRACIE SANDERS, DR. FOLEY Attending Unavailable TRACIE SANDERS, DR. FOLEY Attending Unavailable PAL KIM Attending Unavailable ZIOL, KAYLA E Referring Unavailable ZIOL, KAYLA E Primary Care Unavailable PAL KIM Attending Unavailable PAL KIM Referring Unavailable ZIOL, KAYLA E Primary Care Unavailable EDVIN, LAPMAN Referring Unavailable EDVIN, LAPMAN Referring Unavailable EDVIN, LAPMAN Referring Unavailable EDVIN, LAPMAN Referring Unavailable EDVIN, LAPMAN Referring Unavailable ZIOL, KAYLA (HARNESS INSTALLER) Attending Unavailable ZIOL, KAYLA (HARNESS INSTALLER) Attending Unavailable ZIOL, KAYLA (HARNESS INSTALLER) Referring Unavailable ZIOL, KAYLA (HARNESS INSTALLER) Attending Unavailable ZIOL, KAYLA (HARNESS INSTALLER) Referring Unavailable EDVIN, LAPMAN Referring Unavailable EDVIN, LAPMAN Referring Unavailable ZIOL, KAYLA (HARNESS INSTALLER) Attending Unavailable ZIOL, KAYLA (HARNESS INSTALLER) Referring Unavailable EDVIN, LAPMAN Referring Unavailable EDVIN, LAPMAN Referring Unavailable EDVIN, LAPMAN Referring Unavailable EDVIN, LAPMAN Referring Unavailable EDVIN, LAPMAN Referring Unavailable ZIOL, KAYLA (HARNESS INSTALLER) Attending Unavailable ZIOL, KAYLA (HARNESS INSTALLER) Referring Unavailable ZIOL, KAYLA (HARNESS INSTALLER) Referring Unavailable MAGDIEL LEE Attending Unavailable MAGDIEL LEE Referring Unavailable EDVIN, KAYLAMAN Referring Unavailable EDVIN, LAPMAN Referring Unavailable EDVIN, LAPMAN Referring Unavailable EDVIN, LAPMAN Referring Unavailable ZIOL, KAYLA (HARNESS INSTALLER) Referring Unavailable EDVIN, LAPMAN Referring Unavailable EDVIN, LAPMAN Referring Unavailable EDVIN, LAPMAN Referring Unavailable EDVIN, LAPMAN Attending Unavailable ZIOL, KAYLA (HARNESS INSTALLER) Referring Unavailable EDVIN, LAPMAN Referring Unavailable ZIOL, KAYLA (HARNESS INSTALLER) Attending Unavailable EDVIN, LAPMAN Referring Unavailable EDVIN, LAPMAN Referring Unavailable EDVIN, LAPMAN Referring Unavailable EDVIN, LAPMAN Referring Unavailable EDVIN, LAPMAN Referring Unavailable EDVIN, LAPMAN Referring Unavailable EDVIN, LAPMAN Referring Unavailable MAGDIEL LEE Attending Unavailable MAGDIEL LEE Referring Unavailable EDVIN, LAPMAN Referring Unavailable EDVIN, LAPMAN Referring Unavailable EDVIN, LAPMAN Referring Unavailable EDVIN, LAPMAN Referring Unavailable EDVIN, LAPMAN Referring Unavailable EDVIN, LAPMAN Referring Unavailable EDVIN, LAPMAN Referring Unavailable MASCI, JUAN A Referring Unavailable EDVIN, LAPMAN Referring Unavailable ZIOL, KAYLA (HARNESS INSTALLER) Attending Unavailable EDVIN, LAPMAN Referring Unavailable EDVIN, LAPMAN Attending Unavailable ZIOL, KAYLA (HARNESS INSTALLER) Referring Unavailable EDVIN, LAPMAN Referring Unavailable EDVIN, LAPMAN Referring Unavailable EDVIN, LAPMAN Referring Unavailable EDVIN, LAPMAN Referring Unavailable DERRICK JONES Admitting Unavailable DERRICK JONES Attending Unavailable NIK LEE (HARNESS INSTALLER) Referring Unavailable EDVIN, LAPMAN Attending Unavailable EDVIN, LAPMAN Referring Unavailable EDVIN, LAPMAN Referring Unavailable MAGDIEL LEE Attending Unavailable MAGDIEL LEE Referring Unavailable EDVIN, LAPMAN Referring Unavailable EDVIN, LAPMAN Referring Unavailable EDVIN, LAPMAN Attending Unavailable ZIOL, KAYLA (HARNESS INSTALLER) Referring Unavailable EDVIN, LAPMAN Referring Unavailable ZIOL, KAYLA (HARNESS INSTALLER) Attending Unavailable ZIOL, KAYLA (HARNESS INSTALLER) Referring Unavailable EDVIN, LAPMAN Referring Unavailable ZIOL, KAYLA (HARNESS INSTALLER) Referring Unavailable EDVIN, LAPMAN Referring Unavailable EDVIN, LAPMAN Referring Unavailable EDVIN, LAPMAN Referring Unavailable JULIO, PAL E Referring Unavailable JULIO, PAL E Attending Unavailable JULIO, PAL E Referring Unavailable EDVIN, LAPMAN Referring Unavailable EDVIN, LAPMAN Referring Unavailable EDVIN, LAPMAN Referring Unavailable EDVIN, LAPMAN Referring Unavailable EDVIN, LAPMAN Attending Unavailable ZIOL, KAYLA (HARNESS INSTALLER) Referring Unavailable EDVIN, LAPMAN Referring Unavailable EDVIN, LAPMAN Referring Unavailable PROBLEMS PROBLEMS DATE TYPE CONDITION / CODE ATTENDING STATUS SOURCE 12/20/2017 Active Essential (primary) NA Active [place] hypertension / Clinic Main I10(ICD-10) [facility] Rep[facility] 11/11/2017 Active Chronic kidney NA Active [place] disease, stage 3 Clinic Main (moderate) / [place] N18.3(ICD-10) Repository 11/11/2017 Active Anemia in chronic NA Active [place] kidney disease / Clinic Main D63.1(ICD-10) [facility] Rep[facility] 04/23/2018 Active Other cirrhosis of NA Active [place] liver / Clinic Main K74.69(ICD-10) [facility] Rep[facility] 07/11/2014 Active Thrombocytopenia, NA Active [place] unspecified / Clinic Main D69.6(ICD-10) [facility] Rep[facility] 03/24/2018 Active 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 Clinic Main therapy / [place] Z79.899(ICD-10) Repository 03/24/2018 Unknown Z51.89 - Encounter Edvin, Lapman Active [place] for other specified Community aftercare / Hospital Z51.89(ICD-10) Repository 02/18/2018 Unknown K74.60 - Unspecified Jabour, Active [place] cirrhosis of liver / [facility] K74.60(ICD-10) Hospital Repository 01/27/2018 Active 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 with [place] hemorrhage / Repository K25.4(ICD-10) 12/20/2017 Active Nonrheumatic aortic AHMED, VASEEM Active [place] (valve) stenosis / Clinic Other I35.0(ICD-10) [facility] Rep[facility] 12/20/2017 Active Acute pancreatitis AHMED, VASEEM Active [place] without necrosis or Clinic Other infection, [place] unspecified / Repository K85.90(ICD-10) 12/20/2017 Active Unspecified AHMED, VASEEM Active [place] cirrhosis of liver / Clinic Other K74.60(ICD-10) [facility] Rep[facility] 12/20/2017 Active Nutritional anemia, AHMED, VASEEM Active [place] unspecified / Clinic Other D53.9(ICD-10) [facility] Rep[facility] 05/26/2018 Unknown R07.9 - Chest pain, Schwiger, Taqueria Active [place] unspecified / Community R07.9(ICD-10) Hospital Repository 12/17/2017 Active Atherosclerotic JULIO, 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 / I25.10(ICD-10) 12/17/2017 Admitting Unknown / JULIO, Active [place] [facility] diagnosis UNK(Unknown) [facility] Repository 11/24/2017 Active Nausea with JONES, Active [place] vomiting, [facility] Main unspecified / [place] R11.2(ICD-10) Repository 11/24/2017 Active Anemia, unspecified JONES, Active [place] / D64.9(ICD-10) [facility] Main [place] Repository 05/27/2017 Active Anemia in other NA Active [place] chronic diseases [facility] Main classified elsewhere [place] / D63.8(ICD-10) Repository 11/05/2017 Active Unknown / NA Active [place] UNK(Unknown) [facility] Main [place] Repository 10/10/2017 Unknown N18.3 - Chronic Jocelyn Ball Active [place] kidney disease, Community stage 3 (moderate) / Hospital N18.3(ICD-10) Repository 10/10/2017 Unknown E11.9 - Type 2 Jocelyn Ball Active [place] diabetes mellitus Community without Hospital complications / Repository E11.9(ICD-10) 12/23/2017 Unknown Z04.3 - Encounter Vance, Ronen Active [place] for examination and Community observation Hospital following other Repository accident / Z04.3(ICD-10) PROCEDURES PROCEDURES No Procedure Records FoundRESULTS RESULTS XR CHEST 2V FRONTAL/LAT Observed: 08/11/2018 Status: F Source: [place] 11:20 AM [facility] REPOSITORY * * *Final Report* * * DATE OF EXAM: Aug 11 2018 11:20AM WOX [id number] - XR CHEST 2V FRONTAL/LAT / PROCEDURE REASON: Aortic valve stenosis, mild * * * * Physician Interpretation * * * * EXAMINATION: CHEST RADIOGRAPH (2 VIEW FRONTAL and LATERAL) CLINICAL HISTORY: Aortic valve stenosis, mild MQ: XC2_5 Comparison: 12/04/2015 RESULT: Lines, tubes, and devices: None. Lungs and pleura: Cardiomegaly is stable. Lung melendez are clear. No pleural fluid or pneumothorax is seen. IMPRESSION: No acute radiographic abnormality. Cardiomegaly Wicker Worker: PSCB Transcribe Date/Time: Aug 11 2018 12:34P Dictated by : BRENDA AMOS MD This examination was interpreted and the report reviewed and electronically signed by: BRENDA AMOS MD on Aug 11 2018 12:35PM EST [id number] Observed: 08/11/2018 Status: COMPLETED Source: [place] 11:10 AM [facility] REPOSITORY HNO ID: [id number] Author: Erik Marroquin (Rt) Elaine Boothe Service: (none) Author Type: Hand Tube Bender Type: Progress Notes Filed: 08/11/2018 11:21 AM Note Text: Radiology Service Progress Note PATIENT NAME: Hang Meza DATE OF SERVICE: August 11, 2018 TIME: 11:10 AM PATIENT IDENTITY VERIFICATION COMPLETED USING TWO (2) METHODS: Patient confirmed name verbally and Date of . PATIENT GENDER DATA: Male PATIENT RELEVANT IMPLANT DATA REVIEWED: Not Applicable RADIOLOGY DEPARTMENT: General X-ray: Exam(s) Completed: Chest X-Ray PERIPHERAL IV DATA: Not applicable SIGNED BY: RT Pauline August 11, 2018 11:10 AM PROTIME Collected: 07/30/2018 Status: F Source: [place] 9:09 AM [facility] REPOSITORY TYPE CODE TESTS RESULT OUT OF RANGE REFERENCE UNITS LAB PSEC 9.7-13.0 sec PT Sec 12.1 LAB INR 0.9-1.3 PT INR 1.2 Result Comment: Vitamin K Antagonist (VKA) Therapeutic Range: INR 2 to 3 (Target INR of 2.5) Note: For patients treated with VKA drugs, such as warfarin, the [place] [employer] 2012 Guideline recommends a therapeutic INR range of 2 to 3 (target INR of 2.5). This recommendation includes high-risk patients with antiphospholipid syndrome with previous arterial or venous thromboembolism, current-generation mechanical or bioprosthetic aortic heart valve replacement. Note: Patients with mechanical aortic valve replacement and additional risk factors for thromboembolic events (atrial fibrillation, previous thromboembolism, LV dysfunction, hypercoagulable conditions) or an older generation mechanical AVR (i.e., ball in-Cage) or any mechanical MVR should have a INR therapeutic range of 2.5 to 3.5 (target INR of 3). Nava GH, et al. Chest 2012, 141:7S-47S Venessa RA, et al. [facility] 2017, 70: 252-289 Performed By: #### PT, PTT, BMP #### [facility] [employer] [address] [place] [id number] APTT Collected: 07/30/2018 Status: F Source: [place] 9:09 AM [facility] REPOSITORY TYPE CODE TESTS RESULT OUT OF RANGE REFERENCE UNITS LAB APTT 23.0-32.4 sec APTT 26.5 Result Comment: Unfractionated Heparin Therapeutic Ranges: Standard Heparin Nomogram: 53 to 78 seconds (anti-Xa level of 0.3 to 0.7 U/ml) Low Dose/ACS Nomogram: 49 to 67 seconds (anti-Xa level of 0.2 to 0.5 U/ml) Stroke Treatment Nomogram: 49 to 67 seconds (anti-Xa level of 0.2 to 0.5 U/ml) Note: The APTT therapeutic range has been determined for the current lot of laboratory APTT reagent in use throughout the [facility]. Performed By: #### PT, PTT, BMP #### [facility] [employer] [address] [place] [id number] BASIC METABOLIC PANL Collected: 07/30/2018 Status: F Source: [place] 9:09 AM [facility] REPOSITORY TYPE CODE TESTS RESULT OUT OF REFERENCE UNITS RANGE LAB GLU 74-99 mg/dL High Glucose 160 Result Comment: The [place] [employer] (ADA) provides guidance for cutoff values for fasting glucose and random glucose. The ADA defines fasting as no caloric intake for at least 8 hours. Fas ting plasma glucose results between 100 to 125 mg/dL indicate increased risk for diabetes (prediabetes). Fasting plasma glucose results greater than or equal to 126 mg/dL meet the criteria for diagnosis of diabetes. In the absence of unequivocal hyperglycemia, results should be confirmed by repeat testing. In a patient with classic symptoms of hyperglycemia or hyperglycemic crisis, random plasma glucose results greater than or equal to 200 mg/dL meet the criteria for diagnosis of diabetes. Reference: Standards of Medical Care in Diabetes 2016, [place] [employer]. Diabetes Care. 2016.39(Suppl 1). LAB BUN 9-24 mg/dL BUN High 40 LAB CRET 0.73-1.22 mg/dL Creatinine High 1.95 LAB NA 136-144 mmol/L Sodium 138 LAB K 3.7-5.1 mmol/L Potassium 4.2 LAB CL 97-105 mmol/L Low Chloride 96 LAB CO2 22-30 mmol/L CO2 25 LAB AGAP 9-18 mmol/L Anion Gap 17 LAB CA 8.5-10.2 mg/dL Calcium, Total 9.1 LAB GFRAA eGFR- Amer. 40 LAB GFRNAA . eGFR-All Other Races 33 Result Comment: eGFR (Estimated GFR) Units of measure: mL/min/1.73 meters squared eGFR is derived from the reexpressed MDRD Study equation using the following parameters: serum creatinine, age, gender and race. The creatinine assay has been calibrated to be traceable to IDMS. An eGFR <60 mL/min/1.73m2 for >3 months is consistent with chronic kidney disease. Refer to KDOQI guidelines for clinical interpretation. In patients with unstable renal function, e.g. those with acute kidney injury, the eGFR may not accurately reflect actual GFR. Performed By: #### PT, PTT, BMP #### [facility] [address], [place] [address] [place] HEMATOCRIT Collected: 07/30/2018 Status: F Source: [place] 9:07 AM [facility] REPOSITORY TYPE CODE TESTS RESULT OUT OF REFERENCE UNITS RANGE LAB WHCT 39.0-51.0 % Low [place] Hematocrit 28.4 Result Comment: Test performed at: [facility], [address] [place] [address] Rd[address] [place] [address]. [place] HEMOGLOBIN Collected: 07/30/2018 Status: F Source: [place] 9:07 AM [facility] REPOSITORY TYPE CODE TESTS RESULT OUT OF REFERENCE UNITS RANGE LAB WHGB 13.0-17.0 g/dL Low [place] Hemoglobin 8.9 Result Comment: Test performed at: [facility], [address] [place] [address]. TSH Collected: 07/30/2018 Status: F Source: [place] 9:07 AM [facility] REPOSITORY TYPE CODE TESTS RESULT OUT OF RANGE REFERENCE UNITS LAB TSH 0.400-5.500 uU/mL TSH 3.480 Performed By: #### TSH #### [facility] [address] [place], [place] [address] [place] HEMOGLOBIN Collected: 07/20/2018 Status: F Source: [place] 9:30 AM [facility] REPOSITORY TYPE CODE TESTS RESULT OUT OF REFERENCE UNITS RANGE LAB WHGB 13.0-17.0 g/dL Low [place] Hemoglobin 7.8 Result Comment: Test performed at: [facility], [address] [place] [address]. [place] HEMATOCRIT Collected: 07/20/2018 Status: F Source: [place] 9:30 AM [facility] REPOSITORY TYPE CODE TESTS RESULT OUT OF REFERENCE UNITS RANGE LAB WHCT 39.0-51.0 % Low [place] Hematocrit 25.4 Result Comment: Test performed at: [facility], [address] [place] [address]., [place] [address]. TYPE AND SCREEN Collected: 07/20/2018 Status: F Source: [place] 9:28 AM [facility] REPOSITORY Order Comment: PRETRANSFUSION HGB = 7.8 HCT = 25.4 PERFORMED AT [facility] FOR TRANSFUSION 07/22 CMV NEG?* N Give When? 07/21/18 09:00 Irradiated? N Leukodepleted? Y Reason for Type AND Screen/Red Cells: ANEMIA TYPE CODE TESTS RESULT OUT OF RANGE REFERENCE UNITS LAB B10.0800 A Normal BLOOD TYPE GEL POSITIVE LAB B100.4000 Normal Antibody NEGATIVE Screen Performed By: #### B101.7450 #### [facility] [address] [facility] [id number] RC Collected: 07/20/2018 Status: F Source: [place] 9:28 AM [facility] REPOSITORY TYPE CODE TESTS RESULT OUT OF REFERENCE UNITS RANGE LAB U100.0000 [id number] TRANSFUSED PRODUCT: T AND S with Crossmatch, Red Cells COUNT: 1 Performed By: #### U100.0000 #### [facility] - refer to report for specific site [place] HEMATOCRIT Collected: 07/02/2018 Status: F Source: [place] 9:06 AM [facility] REPOSITORY TYPE CODE TESTS RESULT OUT OF REFERENCE UNITS RANGE LAB WHCT 39.0-51.0 % Low [place] Hematocrit 26.8 Result Comment: Test performed at: [facility], [address] [place] [address]., [place] [address]. [place] HEMOGLOBIN Collected: 07/02/2018 Status: F Source: [place] 9:06 AM [facility] REPOSITORY TYPE CODE TESTS RESULT OUT OF REFERENCE UNITS RANGE LAB WHGB 13.0-17.0 g/dL Low [place] Hemoglobin 8.4 Result Comment: Test performed at: [facility], [address] [place] [address] Rd[address] [place] [address]. CNPN Observed: 06/29/2018 Status: COMPLETED Source: [place] 12:00 AM [facility] REPOSITORY Telephone (CAWSTR) HANG MEZA ([id number]) 1940 M Date Time Provider Department 06/29/18 PAL KIM During your visit today, we recorded the following information about you: Yvrose Dukes LPN 06/29/2018 10:58 AM Signed Daughter Addie calling in stating that she will need an order for the compression stockings faxed to a company called [employer]. Once they have the order they can measure patient for correct fit. She was able to get a temporary pair from [employer]. The order needs to state pressure 20-30 and knee high or thigh high. SEKOU Irby MD 06/29/2018 1:36 PM Signed Please pend order for the thigh-high style with diagnosis postural hypotension MD Yvrose Stephen LPN 06/29/2018 2:02 PM Signed Pended, please check note in order for accuracy.SEKOU Irby MD 06/29/2018 4:10 PM Signed Done. Thanks. MD Aly Stephen RN 07/01/2018 9:18 AM Signed Faxed order for compression stockings to [facility] at [phone] with fax confirmation Aly Tarango RN Allergies As of Date: 06/29/2018 (No Known Allergies) Date Reviewed: 06/18/2018 Reviewed by: Michelle Crystal MA - Fully Assessed Reason for Visit: Orders [681] Primary Visit Diagnosis:Hypotension, postural [I95.1] Order(s):COMPRESSION STOCKINGS [[id number]] Order #: [id number] Prescriptions as of 06/29/2018 Sig: LANCETS Use as instructed to test glu* SPIRONOLACTONE 25 MG TABLET Take 1 tablet by mouth twice * SUCRALFATE 1 GRAM TABLET Take 1 tablet by mouth four t* INSULIN LISPRO 100 UNIT/ML JAIMES* 12 u with breakfast, 24 u wit* BLOOD SUGAR DIAGNOSTIC STRIPS Test blood glucose 4 times da* FERROUS SULFATE 325 MG (65 MG* Take 1 tablet by mouth daily * PANTOPRAZOLE 40 MG TABLET,DEL* Take 1 tablet by mouth twice * SIMVASTATIN 20 MG TABLET Take 1 tablet by mouth once d* FUROSEMIDE 40 MG TABLET Take 2 tablets by mouth once * LEVOTHYROXINE 25 MCG TABLET Take 1 tablet by mouth once d* CENTRUM SILVER MEN ORAL Take 1 tablet by mouth once d* LANCETS 28 GAUGE Test blood glucose 4 times da* PEN NEEDLE, DIABETIC 31 GAUGE* USE WITH INSULIN PENS 4 TIMES* INSULIN GLARGINE (U-100) 100 * Inject 25 Units subcutaneousl* ARANESP INJECTION by INJECTION(UNSPECIFIED PARE* METOPROLOL TARTRATE 25 MG TAB* Take 1 tablet by mouth twice * METAMUCIL ORAL Take by mouth once daily. LORATADINE 10 MG TABLET Take 10 mg by mouth once lilian* DESOXIMETASONE 0.25 % TOPICAL* Apply thin layer twice daily METHYLCELLULOSE (LAXATIVE) 50* Take 500 mg by mouth DAILY. MECLIZINE 25 MG TABLET Take 1 tablet by mouth three * RIFAXIMIN 550 MG TABLET Take 1 tablet by mouth twice * Problem List As Of Date 06/29/2018 Noted Resolved Viral gastroenteritis [A08.4] INVALID FOR*09/06/2014 Dehydration [E86.0] INVALID FOR*09/06/2014 GERD (gastroesophageal reflux disease) [K21.9] Renal disorder [N28.9] More... 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 History of colonic polyps [Z86.010] INVALID FOR* More... Anemia, chronic renal failure, stage 3 (moderat*INVALID FOR* Acute pancreatitis [K85.90] INVALID FOR*12/23/2017 Obesity, Class III, BMI >= 40 E66.01 [E66.01] INVALID FOR* Anemia [D64.9] INVALID FOR*12/23/2017 History of transfusion [Z92.89] INVALID FOR* More... Encounter Status:Closed by ALY TARANGO RN on 06/29/18 PROGRESS Observed: 06/18/2018 Status: COMPLETED Source: [place] 10:14 AM [facility] REPOSITORY O ID: [id number] Author: Pal Kim Service: (none) Author Type: Physician Type: Progress Notes Filed: 06/18/2018 6:17 PM Note Text: PERTINENT CARDIAC HISTORY Aortic stenosis - moderate ASHD? - abnormal ecg HTN HL DM TIA Syncope Anemia CRF ADHERENCE TO GUIDELINES CHRISTIANO-I or ARB for HF with prior LVEF<40 (NQF 0081) - N/A ASA or Plavix for ASHD (NQF 0067) - N/A Beta thais for ASHD with prior MA or prior LVEF<40 (NQF 0070) - N/A Beta thais for HF with prior LVEF<40 (NQF 0083) - N/A CHRISTIANO-I or ARB for ASHD with DM or prior LVEF<40 (NQ 0066) - N/A Statin therapy for ASHD or FHL or DM - N/A BMI documented and plan if >25 (NQ 0421) - lifestyle recommendation form Tobacco use screening and referral ([facility] 0028) - lifestyle recommendation form Recommendation for whole food, plant based diet - lifestyle recommendation form CLINICAL IMPRESSION/PLAN: Hang Meza has had no further episodes of syncope. This was likely related to postural hypotension in the face of his aortic stenosis and anemia. I have again recommended support stockings. He has minimal evidence of volume overload at this time. BMP will be rechecked. He's been advised to continue his current medications. He is on no vasodilators at this time. I will see him in 6 months, at which time we will update his echocardiogram. If his symptoms worsen in the meantime, he has been advised to contact me. Written and verbal health teaching given to patient, patient verbalizes understanding and agrees with treatment plan. DIAGNOSIS FOR VISIT: Aortic stenosis Hypertension HISTORY OF PRESENT ILLNESS Hang Meza returns for follow-up of multiple cardiac issues, as noted above. His daughter comes with him to his appointment today. He's had no further episodes of syncope. He has been cautious to keep himself well-hydrated. He has not been using support stockings. He denies chest pain. He's had no orthopnea. His edema has been better overall. He's had occasional postural lightheadedness, particularly when he gets up at night. He he denies palpitations, TIAs, amaurosis and claudication. ALLERGIES: ALLERGIES No Known Allergies CURRENT OUTPATIENT MEDICATIONS: spironolactone (ALDACTONE) 25 mg tablet Take 1 tablet by mouth twice daily. sucralfate (CARAFATE) 1 gram tablet Take 1 tablet by mouth four times daily. insulin lispro (HUMALOG KWIKPEN) 100 unit/mL pen 12 u with breakfast, 24 u with lunch, 15 u with dinner plus 2 u per 50 > 150 TDD 90 units blood sugar diagnostic (FREESTYLE LITE STRIPS) test strip Test blood glucose 4 times daily ferrous sulfate 325 mg (65 mg iron) tablet Take 1 tablet by mouth daily with breakfast. pantoprazole DR (PROTONIX) 40 mg tablet Take 1 tablet by mouth twice daily. 30 minutes before eating. simvastatin (ZOCOR) 20 mg tablet Take 1 tablet by mouth once daily. furosemide (LASIX) 40 mg tablet Take 2 tablets by mouth once daily. levothyroxine (SYNTHROID) 25 mcg tablet Take 1 tablet by mouth once daily. multivit-min/FA/lycopen/lutein (CENTRUM SILVER MEN ORAL) Take 1 tablet by mouth once daily. lancets (FREESTYLE LANCETS) 28 gauge misc Test blood glucose 4 times daily Insulin [place], Disposable, (BD ULTRAFINE III MINI PEN) 31 gauge x 3/16 ndle USE WITH INSULIN PENS 4 TIMES DAILY insulin glargine (LANTUS SOLOSTAR, BASAGLAR KWIKPEN) 100 unit/mL (3 mL) inpn Inject 25 Units subcutaneously twice daily. darbepoetin janene in albumn violet (ARANESP INJECTION) by INJECTION(UNSPECIFIED PARENTERAL ROUTES) route as needed. metoprolol tartrate, short acting, (LOPRESSOR) 25 mg tablet Take 1 tablet by mouth twice daily. PSYLLIUM HUSK (METAMUCIL ORAL) Take by mouth once daily. loratadine (CLARITIN) 10 mg tablet Take 10 mg by mouth once daily. as needed desoximetasone (TOPICORT) 0.25 % cream Apply thin layer twice daily Methylcellulose, Laxative, (FIBER THERAPY) 500 mg tab Take 500 mg by mouth DAILY. meclizine (ANTIVERT) 25 mg tab Take 1 tablet by mouth three times daily as needed. rifaximin (XIFAXAN) 550 mg tab Take 1 tablet by mouth twice daily. PHYSICAL EXAMINATION: VITAL SIGNS: BP 109/71 Pulse 80 Ht 5' 7 (1.70m) Wt 276 lb 9.6 oz (125.5kg) BMI 43.31 kg/(m2). Chest: Clear to auscultation. Trachea is midline. Air entry is equal. Cardiac: Regular rhythm. S1 and S2 are normal. PMI is nondisplaced. There is a 2/6 mid peaking murmur of aortic stenosis. Carotids are brisk without bruits. JVP is less than 10 cm. Abdomen: Soft and nontender. There is marked obesity. There are no pulsatile masses or bruits. No liver enlargement. Bowel sounds are active. Extremities: 1 plus edema. Pulses are finished but symmetrical. Recent labs were reviewed. Hemoglobin was 8.4. Renal function is moderately impaired, but stable. Labs are being followed in nephrology as well. Electronically Signed: Pal Kim MD June 18, 2018 10:14 AM CC: WELLINGTON Delgadillo Observed: 06/18/2018 Status: COMPLETED Source: [place] 10:00 AM [facility] REPOSITORY Office Visit (CAWSTR) HANG MEZA ([id number]) 1940 M Date Time Provider Department 06/18/18 10:00 AM PAL KIM [facility] During your visit today, we recorded the following information about you: Pulse Blood pressure Weight Height 80/minute 109/71 125.5 kg 1.702 m Pal Kim MD 06/18/2018 6:17 PM Signed PERTINENT CARDIAC HISTORY Aortic stenosis - moderate ASHD? - abnormal ecg HTN HL DM TIA Syncope Anemia CRF ADHERENCE TO GUIDELINES CHRISTIANO-I or ARB for HF with prior LVEF<40 (NQF 0081) - N/A ASA or Plavix for ASHD (NQF 0067) - N/A Beta thais for ASHD with prior MA or prior LVEF<40 (NQF 0070) - N/A Beta thais for HF with prior LVEF<40 (NQF 0083) - N/A CHRISTIANO-I or ARB for ASHD with DM or prior LVEF<40 (NQF 0066) - N/A Statin therapy for ASHD or FHL or DM - N/A BMI documented and plan if >25 (NQF 0421) - lifestyle recommendation form Tobacco use screening and referral (NQF 0028) - lifestyle recommendation form Recommendation for whole food, plant based diet - lifestyle recommendation form CLINICAL IMPRESSION/PLAN: Hang Meza has had no further episodes of syncope. This was likely related to postural hypotension in the face of his aortic stenosis and anemia. I have again recommended support stockings. He has minimal evidence of volume overload at this time. BMP will be rechecked. He's been advised to continue his current medications. He is on no vasodilators at this time. I will see him in 6 months, at which time we will update his echocardiogram. If his symptoms worsen in the meantime, he has been advised to contact me. Written and verbal health teaching given to patient, patient verbalizes understanding and agrees with treatment plan. DIAGNOSIS FOR VISIT: Aortic stenosis Hypertension HISTORY OF PRESENT ILLNESS Hang Meza returns for follow-up of multiple cardiac issues, as noted above. His daughter comes with him to his appointment today. He's had no further episodes of syncope. He has been cautious to keep himself well-hydrated. He has not been using support stockings. He denies chest pain. He's had no orthopnea. His edema has been better overall. He's had occasional postural lightheadedness, particularly when he gets up at night. He he denies palpitations, TIAs, amaurosis and claudication. ALLERGIES: ALLERGIES No Known Allergies CURRENT OUTPATIENT MEDICATIONS: spironolactone (ALDACTONE) 25 mg tablet Take 1 tablet by mouth twice daily. sucralfate (CARAFATE) 1 gram tablet Take 1 tablet by mouth four times daily. insulin lispro (HUMALOG KWIKPEN) 100 unit/mL pen 12 u with breakfast, 24 u with lunch, 15 u with dinner plus 2 u per 50 > 150 TDD 90 units blood sugar diagnostic (FREESTYLE LITE STRIPS) test strip Test blood glucose 4 times daily ferrous sulfate 325 mg (65 mg iron) tablet Take 1 tablet by mouth daily with breakfast. pantoprazole DR (PROTONIX) 40 mg tablet Take 1 tablet by mouth twice daily. 30 minutes before eating. simvastatin (ZOCOR) 20 mg tablet Take 1 tablet by mouth once daily. furosemide (LASIX) 40 mg tablet Take 2 tablets by mouth once daily. levothyroxine (SYNTHROID) 25 mcg tablet Take 1 tablet by mouth once daily. multivit-min/FA/lycopen/lutein (CENTRUM SILVER MEN ORAL) Take 1 tablet by mouth once daily. lancets (FREESTYLE LANCETS) [facility] Test blood glucose 4 times daily Insulin [place], Disposable, (BD ULTRAFINE III MINI PEN) 31 gauge x 3/16 ndle USE WITH INSULIN PENS 4 TIMES DAILY insulin glargine (LANTUS SOLOSTAR, BASAGLAR KWIKPEN) 100 unit/mL (3 mL) inpn Inject 25 Units subcutaneously twice daily. darbepoetin janene in albumn violet (ARANESP INJECTION) by INJECTION(UNSPECIFIED PARENTERAL ROUTES) route as needed. metoprolol tartrate, short acting, (LOPRESSOR) 25 mg tablet Take 1 tablet by mouth twice daily. PSYLLIUM HUSK (METAMUCIL ORAL) Take by mouth once daily. loratadine (CLARITIN) 10 mg tablet Take 10 mg by mouth once daily. as needed desoximetasone (TOPICORT) 0.25 % cream Apply thin layer twice daily Methylcellulose, Laxative, (FIBER THERAPY) 500 mg tab Take 500 mg by mouth DAILY. meclizine (ANTIVERT) 25 mg tab Take 1 tablet by mouth three times daily as needed. rifaximin (XIFAXAN) 550 mg tab Take 1 tablet by mouth twice daily. PHYSICAL EXAMINATION: VITAL SIGNS: BP 109/71 Pulse 80 Ht 5' 7 (1.70m) Wt 276 lb 9.6 oz (125.5kg) BMI 43.31 kg/(m2). Chest: Clear to auscultation. Trachea is midline. Air entry is equal. Cardiac: Regular rhythm. S1 and S2 are normal. PMI is nondisplaced. There is a 2/6 mid peaking murmur of aortic stenosis. Carotids are brisk without bruits. JVP is less than 10 cm. Abdomen: Soft and nontender. There is marked obesity. There are no pulsatile masses or bruits. No liver enlargement. Bowel sounds are active. Extremities: 1 plus edema. Pulses are finished but symmetrical. Recent labs were reviewed. Hemoglobin was 8.4. Renal function is moderately impaired, but stable. Labs are being followed in nephrology as well. Electronically Signed: Pal Kim MD June 18, 2018 10:14 AM CC: Kayla Bernstein APRN.ENVELOPE STAMPING MACHINE OPERATOR Pal Kim MD 06/18/2018 10:14 AM Signed LIFESTYLE CHANGE A healthy lifestyle is the most important component of your overall treatment plan. Please give serious thought to the following areas and commit to making long-term changes. EAT A WHOLE FOOD, PLANT BASED DIET The nutrition your body gets is more important than the medicine you take. What matters most is the overall way you eat. We encourage you to minimize the use of animal products (which include dairy and all meats except fatty fish) and use whole, unprocessed plant foods to provide your protein, vitamins and other nutrients. We have a lot of information to share with you on this topic. This is not a diet. It is a way of life that you will keep with you. EXERCISE REGULARLY It is not important to spend hours in the gym, lifting weights and perspiring heavily. A total of 2-3 hours per week of aerobic (causing you to be moderately short of breath) exercise is sufficient to improve your health. Talk to us before you begin a new exercise program, if you have heart disease or experience shortness of breath or chest pain. REDUCE STRESS Chronic emotional and physical stress leads to disease. Ways of reducing stress include meditation, visualization, prayer, yoga and other forms of relaxation therapy. Consistency is the nunez. Find a technique that works for you and do it every day. CULTIVATE RELATIONSHIPS Loneliness and isolation have a major negative impact on health. Seek out others who can love, care for and nurture you. Avoid hurtful relationships. MAINTAIN IDEAL BODY WEIGHT The best way to do this is to do all the things above. Our bodies naturally find the right weight if we keep moving and feed ourselves the right food. If your BMI is greater than 25, we strongly recommend a referral to a weight management program. Please speak to us or your family physician about available programs. AVOID NICOTINE IN ALL FORMS This includes all tobacco products, whether chewed, smoked, vaped, or rubbed on the skin. Smoking cessation programs, which can make use of tobacco substitutes, medications to suppress cravings and behavior management, are available. Please contact your family physician about programs in your area. Referring Provider: PAL KIM [[id number]] Allergies As of Date: 06/18/2018 (No Known Allergies) Date Reviewed: 06/18/2018 Reviewed by: Michelle Crystal MA - Fully Assessed Reason for Visit: Established Patient [175] Cmt: 6 month follow up Primary Visit Diagnosis:Essential hypertension [I10] Other Visit Diagnoses:ASHD (arteriosclerotic heart disease) [I25.10] Nonrheumatic aortic valve stenosis [I35.0] Order(s):BASIC METABOLIC PNL [SQBMP] Order #: [id number] FUTURE MAGNESIUM BLD [SQMG1] Order #: [id number] FUTURE ECHO [171424] Order #: [id number]: 1 FUTURE Prescriptions as of 06/18/2018 Sig: SPIRONOLACTONE 25 MG TABLET Take 1 tablet by mouth twice * SUCRALFATE 1 GRAM TABLET Take 1 tablet by mouth four t* INSULIN LISPRO 100 UNIT/ML JAIMES* 12 u with breakfast, 24 u wit* BLOOD SUGAR DIAGNOSTIC STRIPS Test blood glucose 4 times da* FERROUS SULFATE 325 MG (65 MG* Take 1 tablet by mouth daily * PANTOPRAZOLE 40 MG TABLET,DEL* Take 1 tablet by mouth twice * SIMVASTATIN 20 MG TABLET Take 1 tablet by mouth once d* FUROSEMIDE 40 MG TABLET Take 2 tablets by mouth once * LEVOTHYROXINE 25 MCG TABLET Take 1 tablet by mouth once d* CENTRUM SILVER MEN ORAL Take 1 tablet by mouth once d* LANCETS 28 GAUGE Test blood glucose 4 times da* PEN NEEDLE, DIABETIC 31 GAUGE* USE WITH INSULIN PENS 4 TIMES* INSULIN GLARGINE (U-100) 100 * Inject 25 Units subcutaneousl* ARANESP INJECTION by INJECTION(UNSPECIFIED PARE* METOPROLOL TARTRATE 25 MG TAB* Take 1 tablet by mouth twice * METAMUCIL ORAL Take by mouth once daily. LORATADINE 10 MG TABLET Take 10 mg by mouth once lilian* DESOXIMETASONE 0.25 % TOPICAL* Apply thin layer twice daily METHYLCELLULOSE (LAXATIVE) 50* Take 500 mg by mouth DAILY. MECLIZINE 25 MG TABLET Take 1 tablet by mouth three * RIFAXIMIN 550 MG TABLET Take 1 tablet by mouth twice * Problem List As Of Date 06/18/2018 Noted Resolved Viral gastroenteritis [A08.4] INVALID FOR*09/06/2014 Dehydration [E86.0] INVALID FOR*09/06/2014 GERD (gastroesophageal reflux disease) [K21.9] Renal disorder [N28.9] More... 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 History of colonic polyps [Z86.010] INVALID FOR* More... Anemia, chronic renal failure, stage 3 (moderat*INVALID FOR* Acute pancreatitis [K85.90] INVALID FOR*12/23/2017 Obesity, Class III, BMI >= 40 E66.01 [E66.01] INVALID FOR* Anemia [D64.9] INVALID FOR*12/23/2017 History of transfusion [Z92.89] INVALID FOR* More... Other instructions from your clinician: LIFESTYLE CHANGE A healthy lifestyle is the most important component of your overall treatment plan. 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 EAT A WHOLE FOOD, PLANT BASED DIET The nutrition your body gets is more important than the medicine you take. What matters most is the overall way you eat. We encourage you to minimize the use of animal products (which include dairy and all meats except fatty fish) and use whole, unprocessed plant foods to provide your protein, vitamins and other nutrients. We have a lot of information to share with you on this topic. This is not a diet. It is a way of life that you will keep with you. EXERCISE REGULARLY It is not important to spend hours in the gym, lifting weights and perspiring heavily. A total of 2-3 hours per week of aerobic (causing you to be moderately short of breath) exercise is sufficient to improve your health. Talk to us before you begin a new exercise program, if you have heart disease or experience shortness of breath or chest pain. REDUCE STRESS Chronic emotional and physical stress leads to disease. Ways of reducing stress include meditation, visualization, prayer, yoga and other forms of relaxation therapy. Consistency is the nunez. Find a technique that works for you and do it every day. CULTIVATE RELATIONSHIPS Loneliness and isolation have a major negative impact on health. Seek out others who can love, care for and nurture you. Avoid hurtful relationships. MAINTAIN IDEAL BODY WEIGHT The best way to do this is to do all the things above. Our bodies naturally find the right weight if we keep moving and feed ourselves the right food. If your BMI is greater than 25, we strongly recommend a referral to a weight management program. Please speak to us or your family physician about available programs. AVOID NICOTINE IN ALL FORMS This includes all tobacco products, whether chewed, smoked, vaped, or rubbed on the skin. Smoking cessation programs, which can make use of tobacco substitutes, medications to suppress cravings and behavior management, are available. Please contact your family physician about programs in your area. Follow-up and Disposition History Recorded Encounter Status:Closed by PAL KIM MD on 06/18/18 RENITA HEMATOCRIT Collected: 06/18/2018 Status: F Source: [place] 9:07 AM [facility] REPOSITORY TYPE CODE TESTS RESULT OUT OF REFERENCE UNITS RANGE LAB WHCT 39.0-51.0 % Low [place] Hematocrit 27.2 Result Comment: Test performed at: [address] [place] [address]. RENITA HEMOGLOBIN Collected: 06/18/2018 Status: F Source: [place] 9:07 AM [facility] REPOSITORY TYPE CODE TESTS RESULT OUT OF REFERENCE UNITS RANGE LAB WHGB 13.0-17.0 g/dL Low [place] Hemoglobin 8.6 Result Comment: Test performed at: [facility], [address] [place] [address]., [place] [address]. BASIC METABOLIC PANL Collected: 06/18/2018 Status: F Source: [place] 9:07 AM [facility] REPOSITORY TYPE CODE TESTS RESULT OUT OF REFERENCE UNITS RANGE LAB GLU 74-99 mg/dL Glucose High 193 LAB BUN 7-21 mg/dL BUN High 39 LAB CRET 0.73-1.22 mg/dL High Creatinine 1.71 LAB NA 136-144 mmol/L Sodium 138 LAB K 3.7-5.1 mmol/L Potassium 4.2 LAB CL 97-105 mmol/L Chloride 101 LAB CO2 22-30 mmol/L CO2 27 LAB AGAP 9-18 mmol/L Anion Gap 10 LAB CA 8.5-10.2 mg/dL Calcium, Total 9.0 LAB GFRAA eGFR- 47 Amer. LAB GFRNAA . eGFR-All Other Races 39 Result Comment: eGFR (Estimated GFR) Units of measure: mL/min/1.73 meters squared eGFR is derived from the reexpressed MDRD Study equation using the following parameters: serum creatinine, age, gender and race. The creatinine assay has been calibrated to be traceable to IDMS. An eGFR <60 mL/min/1.73m2 for >3 months is consistent with chronic kidney disease. Refer to KDOQI guidelines for clinical interpretation. In patients with unstable renal function, e.g. those with acute kidney injury, the eGFR may not accurately reflect actual GFR. MAGNESIUM Collected: 06/18/2018 Status: F Source: [place] 9:07 AM [facility] REPOSITORY TYPE CODE TESTS RESULT OUT OF REFERENCE UNITS RANGE LAB MG 1.7-2.3 mg/dL Magnesium 1.8 RENITA HEMATOCRIT Collected: 06/04/2018 Status: F Source: [place] 8:16 AM [facility] REPOSITORY TYPE CODE TESTS RESULT OUT OF REFERENCE UNITS RANGE LAB WHCT 39.0-51.0 % Low [place] Hematocrit 26.8 Result Comment: Test performed at: [facility], [address] [place] [address]., [place] [address]. RENITA HEMOGLOBIN Collected: 06/04/2018 Status: F Source: [place] 8:16 AM [facility] REPOSITORY TYPE CODE TESTS RESULT OUT OF REFERENCE UNITS RANGE LAB WHGB 13.0-17.0 g/dL Low [place] Hemoglobin 8.4 Result Comment: Test performed at: [facility], [address] [place] [address]., [place] [address]. PROGRESS Observed: 05/28/2018 Status: COMPLETED Source: [place] 3:05 PM [facility] REPOSITORY O ID: [id number] Author: Deion Pardo Service: (none) Author Type: Physician Type: Progress Notes Filed: 05/29/2018 10:52 AM Note Text: PATIENT NAME: Hang Meza. CLINIC NO: [id number]. ATTENDING PHYSICIAN: Deion Pardo MD. DATE OF SERVICE:05/28/2018. ? DIAGNOSIS: anemia of chronic disease?and thrombocytopenia secondary to cirrhosis. Stage III chronic renal failure ? ? HPI: ?this is a 78-year-old gentleman with history of chronic anemia who presented to [facility] because of a recent fall and loss of consciousness. He has a chronic anemia for many years, but beginning last fall his hemoglobin has been dropping rapidly. GI workup including EGD and colonoscopy showed?no source of bleeding or pathology. A benign polyp was removed from his colon, and?there were no evidence of esophageal varices. ? He saw?Dr. Hodges (hepatology) last month for chronic liver disease, and cirrhosis. Patient has history of fatty liver disease, but no review his liver biopsy. he denied jaundice or any evidence of ascites. he had previous endoscopy colonoscopy last year here with Dr. Jones. ?He also saw?Dr. Ball (nephrology) for?chronic renal failure.?Aldactone decreased to once daily. Increased iron supplement once daily for anemia. He also has history of thrombocytopenia, without any bleeding issues. he denied rectal bleeding, melena, hematuria or hemoptysis. ? Patient has no history of alcohol use, or viral hepatitis. ?Patient has been feeling more tired in the last 4-6 weeks. He has dyspnea with exertion, but no chest pain or palpitation. He denied dizziness or lightheadedness. No increased lethargy or frequent headaches. He has fallen one time in the last 3 months. +cold intolerance, no restless legs symptoms. Patient denied jaundice or dark urine or yarelis colored stool. Complain of frequent urination at night which keep him up. ?He also noted increase in edema. ?He denied change in weight or decreased appetite. He is a and was once. He is not sexually active. no family history of cancer or anemia, son with HIV. ? current treatment: Aranesp injection interim history: ?Patient had multiple blood transfusions since his last visit. He has no nausea, vomiting, hematemesis or melena.. His stool is dark , because of his oral iron supplements. he denies severe fatigue, shortness of breath, and generalized weakness after blood transfusion. He has no jaundice, increased lethargy or mental status changes. He is on Aranesp injection for anemia of Chronic disease. ? All medications AND?allergies updated and reviewed by me. ? REVIEW OF SYSTEMS: ? CONSTITUTIONAL: ?No fevers, chills, nightsweats, unintended weight loss fatigue HEENT: ?Denies frequent or severe heaches, nasal congestion/sinus symptoms, problematic allergy problems. EYES: ?No diplopia or blurry vision. CARDIOVASCULAR: ?No chest pain, dyspnea with exertion, palpitations, orthopnea, PND, + ankle edema. PULM: ?No dyspnea at rest, unexplained cough. GI: ?No dysphagia/odynophagia, problematic reflux, constipation, diarrhea, changes in stool habits, hematochezia, melena. : ?No new urinary complaints, including dysuria, gross hematuria or pyuria. NEURO: ?No new balance problems, peripheral weakness/paresthesias or numbness of concern. MUSC-SKEL: ?No new joint pain, swelling, or erythema. PSY: ?No concerns regarding depression, anxiety or panic. INTEGUMENTARY: ?No new skin changes (rash, new or changing mole, new growth) ? PHYSICAL EXAMINATION: 78-year-old well-nourished well-developed gentleman in no Distress. BP 123/59 Pulse 80 Temp (Src) 98.9 (Oral) Wt 277 lb 8 oz (125.9kg) HEENT: Head is normocephalic, atraumatic. Sclerae white, conjunctivae pink. PEERL. EOMs are intact. Oropharynx is benign.Complexion pale. LYMPHATICS: There is no palpable adenopathy in the neck, supraclavicular region, axillae, or groin. LUNGS: Lungs are clear to percussion and auscultation. diminished breath sounds at bases HEART: Heart is normal + grade 2/6 systolic?murmurs, no gallops, or rubs. ABDOMEN: obese, Soft and nontender without organomegaly. No masses or ascites. EXTREMITIES: Are +trace?edema. NEUROLOGIC: Exam is physiologic ? LABORATORY DATA: Component Latest Ref Rng AND Units 05/07/2018 05/21/2018 05/28/2018 WBC, [place] 3.70 - 11.00 k/uL 4.81 4.50 6.39 RBC, [place] 4.20 - 6.00 m/uL 2.37 (L) 2.64 (L) 2.67 (L) Hemoglobin, [place] 13.0 - 17.0 g/dL 8.1 (L) 8.9 (L) 9.1 (L) Hematocrit, [place] 39.0 - 51.0 % 26.2 (L) 28.3 (L) 28.6 (L) MCV, [place] 80.0 - 100.0 fL 110.5 (H) 107.2 (H) 107.1 (H) MCH, [place] 26.0 - 34.0 pg 34.2 (H) 33.7 34.1 (H) MCHC, [place] 30.5 - 36.0 g/dL 30.9 31.4 31.8 RDW, [place] 11.5 - 15.0 % 19.6 (H) 20.1 (H) 20.1 (H) Platelet Cnt, [place] 150 - 400 k/uL 81 (L) 89 (L) 94 (L) MPV, [place] 9.0 - 12.7 fL 12.7 12.6 11.1 Absol Gran Count 1.45 - 7.50 k/uL 3.07 2.78 4.17 Absolute nRBC <0.01 k/uL Result checked and verified ? ASSESSMENT: ?78-year-old gentleman with anemia of chronic disease, stage 3?renal failure, thrombocytopenia Secondary to?chronic liver disease/ non-alcoholic cirrhosis. ? PLAN: - follow-up with GI for chronic GI bleeding and cirrhosis. - continue Aranesp 100mcg injection for anemia chronic disease every 14 days for hemoglobin less than 10 gm/dl AND monitor HANDH every 14 days. - Repeat CBC, CMP and iron study OV in 3 months. ? Deion Pardo MD ? Cc: Kayla Bernstein CNP CNOVSP Observed: 05/28/2018 Status: COMPLETED Source: [place] 8:30 AM [facility] REPOSITORY Visit (SP) Office ([place]) HANG MEZA ([id number]) 1940 M Date Time Provider Department 05/28/18 8:30 AM DEION PARDO During your visit today, we recorded the following information about you: Temperature Pulse Blood pressure Weight 98.9 degrees 80/minute 123/59 125.9 kg Deion Pardo MD 05/29/2018 10:52 AM Signed PATIENT NAME: Hang Gutierrez Derrick. CLINIC NO: [id number]. ATTENDING PHYSICIAN: Deion Pardo MD. DATE OF SERVICE:05/28/2018. ? DIAGNOSIS: anemia of chronic disease?and thrombocytopenia secondary to cirrhosis. Stage III chronic renal failure ? ? HPI: ?this is a 78-year-old gentleman with history of chronic anemia who presented to [facility] because of a recent fall and loss of consciousness. He has a chronic anemia for many years, but beginning last fall his hemoglobin has been dropping rapidly. GI workup including EGD and colonoscopy showed?no source of bleeding or pathology. A benign polyp was removed from his colon, and?there were no evidence of esophageal varices. ? He saw?Dr. Hodges (hepatology) last month for chronic liver disease, and cirrhosis. Patient has history of fatty liver disease, but no review his liver biopsy. he denied jaundice or any evidence of ascites. he had previous endoscopy colonoscopy last year here with Dr. Jones. ?He also saw?Dr. Ball (nephrology) for?chronic renal failure.?Aldactone decreased to once daily. Increased iron supplement once daily for anemia. He also has history of thrombocytopenia, without any bleeding issues. he denied rectal bleeding, melena, hematuria or hemoptysis. ? Patient has no history of alcohol use, or viral hepatitis. ?Patient has been feeling more tired in the last 4-6 weeks. He has dyspnea with exertion, but no chest pain or palpitation. He denied dizziness or lightheadedness. No increased lethargy or frequent headaches. He has fallen one time in the last 3 months. +cold intolerance, no restless legs symptoms. Patient denied jaundice or dark urine or yarelis colored stool. Complain of frequent urination at night which keep him up. ?He also noted increase in edema. ?He denied change in weight or decreased appetite. He is a and was once. He is not sexually active. no family history of cancer or anemia, son with HIV. ? current treatment: Aranesp injection interim history: ?Patient had multiple blood transfusions since his last visit. He has no nausea, vomiting, hematemesis or melena.. His stool is dark , because of his oral iron supplements. he denies severe fatigue, shortness of breath, and generalized weakness after blood transfusion. He has no jaundice, increased lethargy or mental status changes. He is on Aranesp injection for anemia of Chronic disease. ? All medications AND?allergies updated and reviewed by me. ? REVIEW OF SYSTEMS: ? CONSTITUTIONAL: ?No fevers, chills, nightsweats, unintended weight loss fatigue HEENT: ?Denies frequent or severe heaches, nasal congestion/sinus symptoms, problematic allergy problems. EYES: ?No diplopia or blurry vision. CARDIOVASCULAR: ?No chest pain, dyspnea with exertion, palpitations, orthopnea, PND, + ankle edema. PULM: ?No dyspnea at rest, unexplained cough. GI: ?No dysphagia/odynophagia, problematic reflux, constipation, diarrhea, changes in stool habits, hematochezia, melena. : ?No new urinary complaints, including dysuria, gross hematuria or pyuria. NEURO: ?No new balance problems, peripheral weakness/paresthesias or numbness of concern. MUSC-SKEL: ?No new joint pain, swelling, or erythema. PSY: ?No concerns regarding depression, anxiety or panic. INTEGUMENTARY: ?No new skin changes (rash, new or changing mole, new growth) ? PHYSICAL EXAMINATION: 78-year-old well-nourished well-developed gentleman in no Distress. BP 123/59 Pulse 80 Temp (Src) 98.9 (Oral) Wt 277 lb 8 oz (125.9kg) HEENT: Head is normocephalic, atraumatic. Sclerae white, conjunctivae pink. PEERL. EOMs are intact. Oropharynx is benign.Complexion pale. LYMPHATICS: There is no palpable adenopathy in the neck, supraclavicular region, axillae, or groin. LUNGS: Lungs are clear to percussion and auscultation. diminished breath sounds at bases HEART: Heart is normal + grade 2/6 systolic?murmurs, no gallops, or rubs. ABDOMEN: obese, Soft and nontender without organomegaly. No masses or ascites. EXTREMITIES: Are +trace?edema. NEUROLOGIC: Exam is physiologic ? LABORATORY DATA: Component Latest Ref Rng AND Units 05/07/2018 05/21/2018 05/28/2018 WBC, [place] 3.70 - 11.00 k/uL 4.81 4.50 6.39 RBC, [place] 4.20 - 6.00 m/uL 2.37 (L) 2.64 (L) 2.67 (L) Hemoglobin, [place] 13.0 - 17.0 g/dL 8.1 (L) 8.9 (L) 9.1 (L) Hematocrit, [place] 39.0 - 51.0 % 26.2 (L) 28.3 (L) 28.6 (L) MCV, [place] 80.0 - 100.0 fL 110.5 (H) 107.2 (H) 107.1 (H) MCH, [place] 26.0 - 34.0 pg 34.2 (H) 33.7 34.1 (H) MCHC, [place] 30.5 - 36.0 g/dL 30.9 31.4 31.8 RDW, [place] 11.5 - 15.0 % 19.6 (H) 20.1 (H) 20.1 (H) Platelet Cnt, [place] 150 - 400 k/uL 81 (L) 89 (L) 94 (L) MPV, [place] 9.0 - 12.7 fL 12.7 12.6 11.1 Absol Gran Count 1.45 - 7.50 k/uL 3.07 2.78 4.17 Absolute nRBC <0.01 k/uL Result checked and verified ? ASSESSMENT: ?78-year-old gentleman with anemia of chronic disease, stage 3?renal failure, thrombocytopenia Secondary to?chronic liver disease/ non-alcoholic cirrhosis. ? PLAN: - follow-up with GI for chronic GI bleeding and cirrhosis. - continue Aranesp 100mcg injection for anemia chronic disease every 14 days for hemoglobin less than 10 gm/dl AND monitor HANDH every 14 days. - Repeat CBC, CMP and iron study OV in 3 months. ? Deion Pardo MD ? Cc: Kayla Bernstein CNP Referring Provider: KAYLA BERNSTEIN ([employer]ESS [employer]ST[employer]ER) [[id number]] Allergies As of Date: 05/28/2018 (No Known Allergies) Date Reviewed: 05/28/2018 Reviewed by: Sienna Marques - Fully Assessed Reason for Visit: Established Patient [175] Primary Visit Diagnosis:Thrombocytopenia (HCC) [D69.6] Other Visit Diagnoses:Aortic valve stenosis, mild [I35.0] Other cirrhosis of liver (HCC) [K74.69] Anemia, chronic renal failure, stage 3 (moderate) (HCC) [N18.3, D63.1] Level of Service: EST PATIENT VISIT LEVEL 3 [[id number]] Disposition: Return in about 3 months (around 08/28/2018). Follow-up and Disposition History Recorded Prescriptions as of 05/28/2018 Sig: SPIRONOLACTONE 25 MG TABLET Take 1 tablet by mouth twice * SUCRALFATE 1 GRAM TABLET Take 1 tablet by mouth four t* INSULIN LISPRO 100 UNIT/ML JAIMES* 12 u with breakfast, 24 u wit* BLOOD SUGAR DIAGNOSTIC STRIPS Test blood glucose 4 times da* FERROUS SULFATE 325 MG (65 MG* Take 1 tablet by mouth daily * PANTOPRAZOLE 40 MG TABLET,DEL* Take 1 tablet by mouth twice * SIMVASTATIN 20 MG TABLET Take 1 tablet by mouth once d* FUROSEMIDE 40 MG TABLET Take 2 tablets by mouth once * LEVOTHYROXINE 25 MCG TABLET Take 1 tablet by mouth once d* CENTRUM SILVER MEN ORAL Take 1 tablet by mouth once d* LANCETS 28 GAUGE Test blood glucose 4 times da* PEN NEEDLE, DIABETIC 31 GAUGE* USE WITH INSULIN PENS 4 TIMES* INSULIN GLARGINE (U-100) 100 * Inject 25 Units subcutaneousl* ARANESP INJECTION by INJECTION(UNSPECIFIED PARE* METOPROLOL TARTRATE 25 MG TAB* Take 1 tablet by mouth twice * METAMUCIL ORAL Take by mouth once daily. LORATADINE 10 MG TABLET Take 10 mg by mouth once lilian* DESOXIMETASONE 0.25 % TOPICAL* Apply thin layer twice daily METHYLCELLULOSE (LAXATIVE) 50* Take 500 mg by mouth DAILY. MECLIZINE 25 MG TABLET Take 1 tablet by mouth three * RIFAXIMIN 550 MG TABLET Take 1 tablet by mouth twice * Problem List As Of Date 05/28/2018 Noted Resolved Viral gastroenteritis [A08.4] INVALID FOR*09/06/2014 Dehydration [E86.0] INVALID FOR*09/06/2014 GERD (gastroesophageal reflux disease) [K21.9] Renal disorder [N28.9] More... 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 History of colonic polyps [Z86.010] INVALID FOR* More... Anemia, chronic renal failure, stage 3 (moderat*INVALID FOR* Acute pancreatitis [K85.90] INVALID FOR*12/23/2017 Obesity, Class III, BMI >= 40 E66.01 [E66.01] INVALID FOR* Anemia [D64.9] INVALID FOR*12/23/2017 History of transfusion [Z92.89] INVALID FOR* More... Encounter Status:Closed by DEION PARDO MD on 05/29/18 [place] ABS GR + CBC Collected: 05/28/2018 Status: F Source: [place] 8:26 AM [facility] REPOSITORY TYPE CODE TESTS RESULT OUT OF REFERENCE UNITS RANGE LAB WWBC 3.70-11.00 k/uL [place] WBC 6.39 LAB WRBC 4.20-6.00 m/uL Low [place] RBC 2.67 LAB WHGB 13.0-17.0 g/dL Low [place] Hemoglobin 9.1 LAB WHCT 39.0-51.0 % Low [place] Hematocrit 28.6 LAB WMCV 80.0-100.0 fL [place] High MCV 107.1 LAB WMCH 26.0-34.0 pg [place] High MCH 34.1 LAB WMCHC 30.5-36.0 g/dL [place] MCHC 31.8 LAB WRDW 11.5-15.0 % [place] High RDW 20.1 LAB WPLT 150-400 k/uL Low [place] Platelet Cnt 94 LAB WMPV 9.0-12.7 fL [place] MPV 11.1 Result Comment: Test performed at: [address] [place] [address]. LAB ABGRAN 1.45-7.50 k/uL Absol Gran 4.17 Count COMP METABOLIC PANEL Collected: 05/28/2018 Status: F Source: [place] 8:26 AM [facility] REPOSITORY TYPE CODE TESTS RESULT OUT OF REFERENCE UNITS RANGE LAB TP 6.3-8.0 g/dL Protein, High Total 8.1 LAB ALB 3.9-4.9 g/dL Albumin 4.0 LAB CA 8.5-10.2 mg/dL Calcium, Total 9.2 LAB TBIL 0.2-1.3 mg/dL Bilirubin, Total 1.0 LAB ALKP 38-113 U/L Alkaline Phosphatase 51 LAB AST 14-40 U/L AST 32 LAB GLU 74-99 mg/dL Glucose High 207 Result Comment: The [place] [employer] (ADA) provides guidance for cutoff values for fasting glucose and random glucose. The ADA defines fasting as no caloric intake for at least 8 hours. Fas ting plasma glucose results between 100 to 125 mg/dL indicate increased risk for diabetes (prediabetes). Fasting plasma glucose results greater than or equal to 126 mg/dL meet the criteria for diagnosis of diabetes. In the absence of unequivocal hyperglycemia, results should be confirmed by repeat testing. In a patient with classic symptoms of hyperglycemia or hyperglycemic crisis, random plasma glucose results greater than or equal to 200 mg/dL meet the criteria for diagnosis of diabetes. Reference: Standards of Medical Care in Diabetes 2016, [place] [employer]. Diabetes Care. 2016.39(Suppl 1). LAB BUN 9-24 mg/dL BUN High 39 LAB CRET 0.73-1.22 mg/dL Creatinine High 1.88 LAB NA 136-144 mmol/L Low Sodium 135 LAB K 3.7-5.1 mmol/L Potassium 4.3 LAB CL 97-105 mmol/L Low Chloride 94 LAB CO2 22-30 mmol/L CO2 25 LAB AGAP 9-18 mmol/L Anion Gap 16 LAB ALT 10-54 U/L ALT 21 LAB GFRAA eGFR- Amer. 42 LAB GFRNAA . eGFR-All Other Races 35 Result Comment: eGFR (Estimated GFR) Units of measure: mL/min/1.73 meters squared eGFR is derived from the reexpressed MDRD Study equation using the following parameters: serum creatinine, age, gender and race. The creatinine assay has been calibrated to be traceable to IDMS. An eGFR <60 mL/min/1.73m2 for >3 months is consistent with chronic kidney disease. Refer to KDOQI guidelines for clinical interpretation. In patients with unstable renal function, e.g. those with acute kidney injury, the eGFR may not accurately reflect actual GFR. Performed By: #### CMP, FERR, IRON #### [facility] [address] [place], [place] [address] FERRITIN Collected: 05/28/2018 Status: F Source: [place] 8:26 AM [facility] REPOSITORY TYPE CODE TESTS RESULT OUT OF REFERENCE UNITS RANGE LAB FERR 30.3-565.7 ng/mL Ferritin 45.8 Performed By: #### CMP, FERR, IRON #### [facility] [address] [place], [place] [address] IRON AND TIBC Collected: 05/28/2018 Status: F Source: [place] 8:26 AM [facility] REPOSITORY TYPE CODE TESTS RESULT OUT OF REFERENCE UNITS RANGE LAB IRN 41-186 ug/dL Iron 141 LAB TIBC 232-386 ug/dL TIBC 369 LAB SAT 15-57 % Transferrin Saturatn 38 Performed By: #### CMP, FERR, IRON #### [facility] [address] [place], [place] [address] RENITA ABS GR + CBC Collected: 05/21/2018 Status: F Source: [place] 8:39 AM [facility] REPOSITORY TYPE CODE TESTS RESULT OUT OF REFERENCE UNITS RANGE LAB WWBC 3.70-11.00 k/uL [place] WBC 4.50 LAB WRBC 4.20-6.00 m/uL Low [place] RBC 2.64 LAB WHGB 13.0-17.0 g/dL Low [place] Hemoglobin 8.9 LAB WHCT 39.0-51.0 % Low [place] Hematocrit 28.3 LAB WMCV 80.0-100.0 fL [place] High MCV 107.2 LAB WMCH 26.0-34.0 pg [place] MCH 33.7 LAB WMCHC 30.5-36.0 g/dL [place] MCHC 31.4 LAB WRDW 11.5-15.0 % [place] High RDW 20.1 LAB WPLT 150-400 k/uL Low [place] Platelet Cnt 89 LAB WMPV 9.0-12.7 fL [place] MPV 12.6 Result Comment: Test performed at: [facility], [address] [place] [address] Rd[address] [place] [address]. LAB ABGRAN 1.45-7.50 k/uL Absol Gran 2.78 Count PROGRESS Observed: 05/19/2018 Status: COMPLETED Source: [place] 9:34 AM [facility] REPOSITORY HNO ID: [id number] Author: Magdiel Lee Service: (none) Author Type: Physician Type: Progress Notes Filed: 05/19/2018 9:56 AM Note Text: ENDOCRINOLOGY SUBSPECIALTY FOLLOW UP Last seen: CC: Diabetes HPI: 78 year old morbidly obese male who first presented in follow up 07-23-2016 for T2DM that historically has been poorly controlled for at least the last year. - his daughter does the blood sugar testing but she is working two jobs and is also in school -- can not always be there; he does not have home health at this point in time . - the pt has poor manual dexterity and can give his own shots but does not test his blood sugars - daughter presents with blood sugar logs tho with scant testing before meals - the patient uses insulin pens but does not always change out the needle during the day -- he was counseled on same today ALSO PLEASE SEE PREVIOUS ENCOUNTERS IN THIS EMR . . . FOLLOW UP VISIT 02-17-2018: Here in routine follow up; noted to be anemic therefore A1c will not be done today - apparently due to polyps. Hospitalized in November for prostate issue; needed transfusions. He is being treated. Per the daughter's report, the bleeding has now stopped. Worsening renal function. Less snacking, smaller meals usually. FOLLOW UP VISIT 05-19-2018: Here in routine follow up; continues to have transfusions, has been on ATB due to blisters on his fingers; back on lasix and aldactone Denies changes in his diet; tho prefers to sleep a bit more. daughter states he has cut back on some snacking in between meals. DO NOT CHECK A1c in this patient - SMBG Freestyle meter FBS 71 - 165 NOON 123 - 248 DINNER 179 - 308 -- most values above goal HS Ave: 182 with rather dramatic interval worsening REVIEW OF SYSTEMS GENERAL: Wt is up and down HEENT: up to date with eye exam, sclerosis was noted per the daughter NECK neg RESPIRATORY: dry cough CARDIOVASCULAR: murmur and notes SOB at times GI: occ nausea; no vomiting : neg MUSCULOSKELETAL: back is bothering him; dry spots on his feet SKIN: neg PSYCH: denies NEURO: decreased sensation in his feet - sees podiatry and special shoes are on order Remainder of ROS is negative PAST MEDICAL HISTORY Diagnosis Date - Blood dyscrasia - BPH (benign prostatic hyperplasia) - Cirrhosis (HCC) fatty liver - Diabetes (HCC) - GERD (gastroesophageal reflux disease) - Heart murmur per daughter - Hiatal hernia 07/25/15 - High cholesterol - History of transfusion 02/19/2018 Premed Tylenol 650 mg Lasix 20 mg in between units Leukodepleted NO irradiated - Hypertension - Hypothyroidism - Mental disorder anxiety - Renal disorder HX kidney stones - Snoring - Stroke (HCC) daughter states minor strokes - Syncope - Thrombocytopenia (HCC) - 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 PAST SURGICAL HISTORY Procedure Laterality Date - COLONOSCOP W/ OR W/O BRSH SPEC 06/02/2017 2 year repeat/hard IV stick - COLONOSCOPY 2013 - EGD 2013, 08/08 - EGD W/O OR W/BRUSH/WASH 06/02/2017 EGD - KIDNEY SURGERY HX - PAST SURGICAL HISTORY OF 2013 umbilical hernia repair - PAST SURGICAL HISTORY OF prostate biopsy Social History Marital status: Spouse name: Years of education: Number of children: 5 Social History Main Topics Smoking status: Former Smoker Packs/day: 0.00 Years: 10.00 Types: Cigars Quit date: 11/07/2002 Smokeless tobacco: Never Used Alcohol use: No Drug use: No Sexual activity: Yes Partners with: Female FAMILY HISTORY Problem Relation Age of Onset - Heart Father MA - Prostate Cancer Father - Diabetes Mother - Breast Cancer Sister - Heart Brother - other ([place]) Brother LABS - disregard A1c -- invalid in the presence of anemia and transfusions Component Latest Ref Rng AND Units 04/30/2018 Albumin 3.9 - 4.9 g/dL 3.7 (L) Calcium 8.5 - 10.2 mg/dL 8.8 Phosphorus 2.7 - 4.8 mg/dL 3.8 Glucose 74 - 99 mg/dL 220 (H) BUN 9 - 24 mg/dL 42 (H) Creatinine 0.73 - 1.22 mg/dL 1.92 (H) Sodium 136 - 144 mmol/L 137 Potassium 3.7 - 5.1 mmol/L 4.3 Chloride 97 - 105 mmol/L 97 CO2 22 - 30 mmol/L 22 Anion Gap 9 - 18 mmol/L 18 eGFR- 41 eGFR-All Other Races . 34 Current Outpatient Prescriptions on File Prior to Visit: ferrous sulfate 325 mg (65 mg iron) tablet Take 1 tablet by mouth daily with breakfast. pantoprazole DR (PROTONIX) 40 mg tablet Take 1 tablet by mouth twice daily. 30 minutes before eating. spironolactone (ALDACTONE) 25 mg tablet Take 25 mg by mouth twice daily. simvastatin (ZOCOR) 20 mg tablet Take 1 tablet by mouth once daily. furosemide (LASIX) 40 mg tablet Take 2 tablets by mouth once daily. levothyroxine (SYNTHROID) 25 mcg tablet Take 1 tablet by mouth once daily. multivit-min/FA/lycopen/lutein (CENTRUM SILVER MEN ORAL) Take 1 tablet by mouth once daily. lancets (FREESTYLE LANCETS) 28 gauge misc Test blood glucose 4 times daily Insulin [place], Disposable, (BD ULTRAFINE III MINI PEN) 31 gauge x 3/16 ndle USE WITH INSULIN PENS 4 TIMES DAILY FREESTYLE LITE STRIPS test strip Test blood glucose 4 times daily insulin glargine (LANTUS SOLOSTAR, BASAGLAR KWIKPEN) 100 unit/mL (3 mL) inpn Inject 25 Units subcutaneously twice daily. darbepoetin janene in albumn violet (ARANESP INJECTION) by INJECTION(UNSPECIFIED PARENTERAL ROUTES) route as needed. sucralfate (CARAFATE) 1 gram tablet Take 1 tablet by mouth four times daily. insulin lispro (HUMALOG KWIKPEN) 100 unit/mL pen 12 u with breakfast, 22 u with lunch, 15 u with dinner plus 2 u per 50 > 150 TDD 90 units metoprolol tartrate, short acting, (LOPRESSOR) 25 mg tablet Take 1 tablet by mouth twice daily. PSYLLIUM HUSK (METAMUCIL ORAL) Take by mouth once daily. loratadine (CLARITIN) 10 mg tablet Take 10 mg by mouth once daily. as needed desoximetasone (TOPICORT) 0.25 % cream Apply thin layer twice daily Methylcellulose, Laxative, (FIBER THERAPY) 500 mg tab Take 500 mg by mouth DAILY. miconazole (LOTRIMIN AF, DESENEX) 2 % powder Apply 1 application to affected area twice daily. meclizine (ANTIVERT) 25 mg tab Take 1 tablet by mouth three times daily as needed. lactulose (ENULOSE) 10 gram/15 mL solution Take 30 mL by mouth once daily. rifaximin (XIFAXAN) 550 mg tab Take 1 tablet by mouth twice daily. No current facility-administered medications on file prior to visit. PHYSICAL EXAMINATION: General appearance: morbidly obese, depressed / exhausted appearance; with a strong odor of stale urine Skin: dry Head: normal Eyes: Anicteric sclera. Pupils are equally round and reactive to light. Extraocular movements are intact. Neck: Supple, no adenopathy; thyroid symmetric, normal size, no bruits Lungs: lungs clear to auscultation Heart: holosystolic blowing murmur Extremities: edema bilat LE, Good capillary refill. Musculoskeletal: Spine range of motion normal. Muscular strength: proximal weakness with difficulty arising from the exam room chair; now amb with a cane Peripheral pulses: Normal ASSESSMENT/PLAN: 1. Uncontrolled type 2 diabetes mellitus with complication, with long-term current use of insulin (HCC) - ICD9: 250.82, V58.67, ICD10: E11.8, E11.65, Z79.4 (primary diagnosis) - interval worsening of blood sugars - Lantus 25 twice daily - morning and evening - Humalog 12 - increase to 24 - 15 plus 2 u per 50 > 150 2. HTN - controlled and at goal of < 140/90 - aldactone being held at this oint 3. HPL - controlled and at goal of LDL < 100 - statin and asa 4. Hypothyroid - clinically euthyroid at today's exam - continues to follow with PCP 5. Anemia - with recent transfusions - Do not do A1c Follow up in 3 months Patient is to continue to follow up with his PCP and with other consultants regarding his other medical problems. The patient has my card, and knows how to reach my office. I thank you for the opportunity to participate in the continued care of Hang Meza. Please do not hesitate to contact me if you have further concerns or questions. Magdiel Lee, MS, RD, MD, CCD, FACN, FACP, FACE Diplomate, [place] [employer] Diplomate, National Board of Physician Nutrition Specialists Endocrinology / / [facility] [id number] CNOV Observed: 05/19/2018 Status: COMPLETED Source: [place] 9:05 AM [facility] REPOSITORY Office Visit (ENDMED) HAGN MEZA ([id number]) 1940 M Date Time Provider Department 05/19/18 9:05 AM MAGDIEL LEE During your visit today, we recorded the following information about you: Pulse Blood pressure Weight Height 72/minute 102/60 126.6 kg 1.702 m Magidel Lee MD 05/19/2018 9:56 AM Signed ENDOCRINOLOGY SUBSPECIALTY FOLLOW UP Last seen: CC: Diabetes HPI: 78 year old morbidly obese male who first presented in follow up 07-23-2016 for T2DM that historically has been poorly controlled for at least the last year. - his daughter does the blood sugar testing but she is working two jobs and is also in school -- can not always be there; he does not have home health at this point in time . - the pt has poor manual dexterity and can give his own shots but does not test his blood sugars - daughter presents with blood sugar logs tho with scant testing before meals - the patient uses insulin pens but does not always change out the needle during the day -- he was counseled on same today ALSO PLEASE SEE PREVIOUS ENCOUNTERS IN THIS EMR . . . FOLLOW UP VISIT 02-17-2018: Here in routine follow up; noted to be anemic therefore A1c will not be done today - apparently due to polyps. Hospitalized in November for prostate issue; needed transfusions. He is being treated. Per the daughter's report, the bleeding has now stopped. Worsening renal function. Less snacking, smaller meals usually. FOLLOW UP VISIT 05-19-2018: Here in routine follow up; continues to have transfusions, has been on ATB due to blisters on his fingers; back on lasix and aldactone Denies changes in his diet; tho prefers to sleep a bit more. daughter states he has cut back on some snacking in between meals. DO NOT CHECK A1c in this patient - SMBG Freestyle meter FBS 71 - 165 NOON 123 - 248 DINNER 179 - 308 -- most values above goal HS Ave: 182 with rather dramatic interval worsening REVIEW OF SYSTEMS GENERAL: Wt is up and down HEENT: up to date with eye exam, sclerosis was noted per the daughter NECK neg RESPIRATORY: dry cough CARDIOVASCULAR: murmur and notes SOB at times GI: occ nausea; no vomiting : neg MUSCULOSKELETAL: back is bothering him; dry spots on his feet SKIN: neg PSYCH: denies NEURO: decreased sensation in his feet - sees podiatry and special shoes are on order Remainder of ROS is negative PAST MEDICAL HISTORY Diagnosis Date - Blood dyscrasia - BPH (benign prostatic hyperplasia) - Cirrhosis (HCC) fatty liver - Diabetes (HCC) - GERD (gastroesophageal reflux disease) - Heart murmur per daughter - Hiatal hernia 07/25/15 - High cholesterol - History of transfusion 02/19/2018 Premed Tylenol 650 mg Lasix 20 mg in between units Leukodepleted NO irradiated - Hypertension - Hypothyroidism - Mental disorder anxiety - Renal disorder HX kidney stones - Snoring - Stroke (HCC) daughter states minor strokes - Syncope - Thrombocytopenia (HCC) - 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 PAST SURGICAL HISTORY Procedure Laterality Date - COLONOSCOP W/ OR W/O BRSH SPEC 06/02/2017 2 year repeat/hard IV stick - COLONOSCOPY 2013 - EGD 2013, 08/08 - EGD W/O OR W/BRUSH/WASH 06/02/2017 EGD - KIDNEY SURGERY HX - PAST SURGICAL HISTORY OF 2013 umbilical hernia repair - PAST SURGICAL HISTORY OF prostate biopsy Social History Marital status: Spouse name: Years of education: Number of children: 5 Social History Main Topics Smoking status: Former Smoker Packs/day: 0.00 Years: 10.00 Types: Cigars Quit date: 11/07/2002 Smokeless tobacco: Never Used Alcohol use: No Drug use: No Sexual activity: Yes Partners with: Female FAMILY HISTORY Problem Relation Age of Onset - Heart Father MA - Prostate Cancer Father - Diabetes Mother - Breast Cancer Sister - Heart Brother - other ([place]) Brother LABS - disregard A1c -- invalid in the presence of anemia and transfusions Component Latest Ref Rng AND Units 04/30/2018 Albumin 3.9 - 4.9 g/dL 3.7 (L) Calcium 8.5 - 10.2 mg/dL 8.8 Phosphorus 2.7 - 4.8 mg/dL 3.8 Glucose 74 - 99 mg/dL 220 (H) BUN 9 - 24 mg/dL 42 (H) Creatinine 0.73 - 1.22 mg/dL 1.92 (H) Sodium 136 - 144 mmol/L 137 Potassium 3.7 - 5.1 mmol/L 4.3 Chloride 97 - 105 mmol/L 97 CO2 22 - 30 mmol/L 22 Anion Gap 9 - 18 mmol/L 18 eGFR- 41 eGFR-All Other Races . 34 Current Outpatient Prescriptions on File Prior to Visit: ferrous sulfate 325 mg (65 mg iron) tablet Take 1 tablet by mouth daily with breakfast. pantoprazole DR (PROTONIX) 40 mg tablet Take 1 tablet by mouth twice daily. 30 minutes before eating. spironolactone (ALDACTONE) 25 mg tablet Take 25 mg by mouth twice daily. simvastatin (ZOCOR) 20 mg tablet Take 1 tablet by mouth once daily. furosemide (LASIX) 40 mg tablet Take 2 tablets by mouth once daily. levothyroxine (SYNTHROID) 25 mcg tablet Take 1 tablet by mouth once daily. multivit-min/FA/lycopen/lutein (CENTRUM SILVER MEN ORAL) Take 1 tablet by mouth once daily. lancets (FREESTYLE LANCETS) 28 gauge misc Test blood glucose 4 times daily Insulin [place], Disposable, (BD ULTRAFINE III MINI PEN) 31 gauge x 3/16 ndle USE WITH INSULIN PENS 4 TIMES DAILY FREESTYLE LITE STRIPS test strip Test blood glucose 4 times daily insulin glargine (LANTUS SOLOSTAR, BASAGLAR KWIKPEN) 100 unit/mL (3 mL) inpn Inject 25 Units subcutaneously twice daily. darbepoetin janene in albumn violet (ARANESP INJECTION) by INJECTION(UNSPECIFIED PARENTERAL ROUTES) route as needed. sucralfate (CARAFATE) 1 gram tablet Take 1 tablet by mouth four times daily. insulin lispro (HUMALOG KWIKPEN) 100 unit/mL pen 12 u with breakfast, 22 u with lunch, 15 u with dinner plus 2 u per 50 > 150 TDD 90 units metoprolol tartrate, short acting, (LOPRESSOR) 25 mg tablet Take 1 tablet by mouth twice daily. PSYLLIUM HUSK (METAMUCIL ORAL) Take by mouth once daily. loratadine (CLARITIN) 10 mg tablet Take 10 mg by mouth once daily. as needed desoximetasone (TOPICORT) 0.25 % cream Apply thin layer twice daily Methylcellulose, Laxative, (FIBER THERAPY) 500 mg tab Take 500 mg by mouth DAILY. miconazole (LOTRIMIN AF, DESENEX) 2 % powder Apply 1 application to affected area twice daily. meclizine (ANTIVERT) 25 mg tab Take 1 tablet by mouth three times daily as needed. lactulose (ENULOSE) 10 gram/15 mL solution Take 30 mL by mouth once daily. rifaximin (XIFAXAN) 550 mg tab Take 1 tablet by mouth twice daily. No current facility-administered medications on file prior to visit. PHYSICAL EXAMINATION: General appearance: morbidly obese, depressed / exhausted appearance; with a strong odor of stale urine Skin: dry Head: normal Eyes: Anicteric sclera. Pupils are equally round and reactive to light. Extraocular movements are intact. Neck: Supple, no adenopathy; thyroid symmetric, normal size, no bruits Lungs: lungs clear to auscultation Heart: holosystolic blowing murmur Extremities: edema bilat LE, Good capillary refill. Musculoskeletal: Spine range of motion normal. Muscular strength: proximal weakness with difficulty arising from the exam room chair; now amb with a cane Peripheral pulses: Normal ASSESSMENT/PLAN: 1. Uncontrolled type 2 diabetes mellitus with complication, with long-term current use of insulin (HCC) - ICD9: 250.82, V58.67, ICD10: E11.8, E11.65, Z79.4 (primary diagnosis) - interval worsening of blood sugars - Lantus 25 twice daily - morning and evening - Humalog 12 - increase to 24 - 15 plus 2 u per 50 > 150 2. HTN - controlled and at goal of < 140/90 - aldactone being held at this oint 3. HPL - controlled and at goal of LDL < 100 - statin and asa 4. Hypothyroid - clinically euthyroid at today's exam - continues to follow with PCP 5. Anemia - with recent transfusions - Do not do A1c Follow up in 3 months Patient is to continue to follow up with his PCP and with other consultants regarding his other medical problems. The patient has my card, and knows how to reach my office. I thank you for the opportunity to participate in the continued care of Hang Meza. Please do not hesitate to contact me if you have further concerns or questions. Magdiel Lee, MS, RD, MD, CCD, FACN, FACP, FACE Diplomate, [place] [employer] Diplomate, National Board of Physician Nutrition Specialists Endocrinology / / [facility] [id number] Referring Provider: MAGDIEL LEE [[id number]] Allergies As of Date: 05/19/2018 (No Known Allergies) Date Reviewed: 05/19/2018 Reviewed by: Magdiel Lee - Fully Assessed Reason for Visit: Diabetes [34] Cmt: patient abrought meter Refill Request [94] Cmt: Freestyle Lite Strips Reason For Visit History Recorded Primary Visit Diagnosis:Uncontrolled type 2 diabetes mellitus with stage 3 chronic kidney disease, with long- term current use of insulin (HCC) [E11.22, E11.65, N18.3, Z79.4] Other Visit Diagnoses:Essential hypertension [I10] Mixed hyperlipidemia [E78.2] Acquired hypothyroidism [E03.9] Obesity, Class III, BMI >= 40 E66.01 [E66.01] Order(s):insulin lispro (HUMALOG KWIKPEN) 100 unit/mL pen12 u with breakfast, 24 u with lunch, 15 u with dinner plus 2 u per 50 > 150 TDD 90 unitsDisp: 10 PenRfl: 11 blood sugar diagnostic (FREESTYLE LITE STRIPS) test stripTest blood glucose 4 times dailyDisp: 450 StripRfl: 3 Prescriptions as of 05/19/2018 Sig: INSULIN LISPRO 100 UNIT/ML JAIMES* 12 u with breakfast, 24 u wit* BLOOD SUGAR DIAGNOSTIC STRIPS Test blood glucose 4 times da* FERROUS SULFATE 325 MG (65 MG* Take 1 tablet by mouth daily * PANTOPRAZOLE 40 MG TABLET,DEL* Take 1 tablet by mouth twice * SPIRONOLACTONE 25 MG TABLET Take 25 mg by mouth twice garett* SIMVASTATIN 20 MG TABLET Take 1 tablet by mouth once d* FUROSEMIDE 40 MG TABLET Take 2 tablets by mouth once * LEVOTHYROXINE 25 MCG TABLET Take 1 tablet by mouth once d* CENTRUM SILVER MEN ORAL Take 1 tablet by mouth once d* LANCETS 28 GAUGE Test blood glucose 4 times da* PEN NEEDLE, DIABETIC 31 GAUGE* USE WITH INSULIN PENS 4 TIMES* INSULIN GLARGINE (U-100) 100 * Inject 25 Units subcutaneousl* ARANESP INJECTION by INJECTION(UNSPECIFIED PARE* SUCRALFATE 1 GRAM TABLET Take 1 tablet by mouth four t* METOPROLOL TARTRATE 25 MG TAB* Take 1 tablet by mouth twice * METAMUCIL ORAL Take by mouth once daily. LORATADINE 10 MG TABLET Take 10 mg by mouth once lilina* DESOXIMETASONE 0.25 % TOPICAL* Apply thin layer twice daily METHYLCELLULOSE (LAXATIVE) 50* Take 500 mg by mouth DAILY. MICONAZOLE NITRATE 2 % TOPICA* Apply 1 application to affect* MECLIZINE 25 MG TABLET Take 1 tablet by mouth three * LACTULOSE 10 GRAM/15 ML ORAL * Take 30 mL by mouth once lilian* RIFAXIMIN 550 MG TABLET Take 1 tablet by mouth twice * Medication notes this encounter MICONAZOLE NITRATE 2 % TOPICAL POWDER >> Yessica Thomas Ma 05/19/2018 9:16 AM >> YESSICA THOMAS MA May 19, 2018 9:16 AM Prn Problem List As Of Date 05/19/2018 Noted Resolved Viral gastroenteritis [A08.4] INVALID FOR*09/06/2014 Dehydration [E86.0] INVALID FOR*09/06/2014 GERD (gastroesophageal reflux disease) [K21.9] Renal disorder [N28.9] More... 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 History of colonic polyps [Z86.010] INVALID FOR* More... Anemia, chronic renal failure, stage 3 (moderat*INVALID FOR* Acute pancreatitis [K85.90] INVALID FOR*12/23/2017 Obesity, Class III, BMI >= 40 E66.01 [E66.01] INVALID FOR* Anemia [D64.9] INVALID FOR*12/23/2017 History of transfusion [Z92.89] INVALID FOR* More... Prescriptions ordered this encounter Disp Refills Start End INSULIN LISPRO 100 UNIT/ML SUB-Q PEN* 10 P* 11 05/19/2018 Class: Med Update Si u with breakfast, 24 u with lunch, 15 u with dinner plus 2 u per 50 > 150 TDD 90 units BLOOD SUGAR DIAGNOSTIC STRIPS 450 * 3 05/19/2018 Sig: Test blood glucose 4 times daily Medications Discontinued During This Encounter insulin lispro (HUMALOG KWIKPEN) 100* 10 P* 11 11/19/2017 05/19/2018 Si u with breakfast, 22 u with lunch, 15 u with dinner plus 2 u per 50 > 150 TDD 90 units Disc: Reason for discontinue is not on file. FREESTYLE LITE STRIPS test strip 400 * 0 02/12/2018 05/19/2018 Sig: Test blood glucose 4 times daily Disc: Reason for discontinue is not on file. Disposition: Return in about 3 months (around 08/18/2018) for diabetes . Follow-up and Disposition History Recorded Encounter Status:Closed by MAGDIEL LEE MD on 05/19/18 R[facility]ITA ABS GR + CBC Collected: 05/14/2018 Status: F Source: [place] 8:10 AM [facility] REPOSITORY TYPE CODE TESTS RESULT OUT OF REFERENCE UNITS RANGE LAB WWBC 3.70-11.00 k/uL [place] WBC 4.65 LAB WRBC 4.20-6.00 m/uL Low [place] RBC 2.74 LAB WHGB 13.0-17.0 g/dL Low [place] Hemoglobin 9.2 LAB WHCT 39.0-51.0 % Low [place] Hematocrit 29.0 LAB WMCV 80.0-100.0 fL [place] High MCV 105.8 LAB WMCH 26.0-34.0 pg [place] MCH 33.6 LAB WMCHC 30.5-36.0 g/dL [place] MCHC 31.7 LAB WRDW 11.5-15.0 % [place] High RDW 20.5 LAB WPLT 150-400 k/uL Low [place] Platelet Cnt 78 LAB WMPV 9.0-12.7 fL [place] High MPV 12.9 Result Comment: Test performed at: [facility], [address] [place] [address]. LAB ABGRAN 1.45-7.50 k/uL Abs[place] Gran 2.97 Count PROGRESS Observed: 05/12/2018 Status: COMPLETED Source: [place] 9:02 AM [facility] REPOSITORY HNO ID: [id number] Author: Kayla Bernstein Service: (none) Author Type: Nurse Practitioner Type: Progress Notes Filed: 05/14/2018 11:05 AM Note Text: SUBJECTIVE: Hang Meza is a 78 year old male Patient presents with: Follow Up Presents with daughter to f/u - Insurance changed - can no longer see Dr. Hodges in GI. Plans to f/u with Dr. Jones. Needs help with prior auth for Xifaxan. Following with Dr. Pardo - weekly hbg/hct, aranesp and/or blood transfusions frequently. Seeing Dr. Lee upcoming - blood sugars: occasional higher readings in 300's, typically after dinner. 1-2 times/in past month. Typically between 120-265. Following with Dr. Ball - following labs - last done 05/07/18. No changes made - still taking Lasix 80 mg daily, Aldactone 25 mg twice daily. Sees nephrology on 05/14/18. CURRENT MEDICATIONS: Current Outpatient Prescriptions on File Prior to Visit: pantoprazole DR (PROTONIX) 40 mg tablet Take 1 tablet by mouth twice daily. 30 minutes before eating. cephALEXin (KEFLEX) 500 mg capsule Take 500 mg by mouth twice daily. spironolactone (ALDACTONE) 25 mg tablet Take 25 mg by mouth twice daily. simvastatin (ZOCOR) 20 mg tablet Take 1 tablet by mouth once daily. furosemide (LASIX) 40 mg tablet Take 2 tablets by mouth once daily. levothyroxine (SYNTHROID) 25 mcg tablet Take 1 tablet by mouth once daily. multivit-min/FA/lycopen/lutein (CENTRUM SILVER MEN ORAL) Take 1 tablet by mouth once daily. lancets (FREESTYLE LANCETS) 28 gauge misc Test blood glucose 4 times daily Insulin [place], Disposable, (BD ULTRAFINE III MINI PEN) 31 gauge x 3/16 ndle USE WITH INSULIN PENS 4 TIMES DAILY FREESTYLE LITE STRIPS test strip Test blood glucose 4 times daily insulin glargine (LANTUS SOLOSTAR, BASAGLAR KWIKPEN) 100 unit/mL (3 mL) inpn Inject 25 Units subcutaneously twice daily. darbepoetin janene in albumn violet (ARANESP INJECTION) by INJECTION(UNSPECIFIED PARENTERAL ROUTES) route as needed. sucralfate (CARAFATE) 1 gram tablet Take 1 tablet by mouth four times daily. insulin lispro (HUMALOG KWIKPEN) 100 unit/mL pen 12 u with breakfast, 22 u with lunch, 15 u with dinner plus 2 u per 50 > 150 TDD 90 units ferrous sulfate 325 mg (65 mg iron) tablet Take 1 tablet by mouth daily with breakfast. metoprolol tartrate, short acting, (LOPRESSOR) 25 mg tablet Take 1 tablet by mouth twice daily. PSYLLIUM HUSK (METAMUCIL ORAL) Take by mouth once daily. loratadine (CLARITIN) 10 mg tablet Take 10 mg by mouth once daily. as needed desoximetasone (TOPICORT) 0.25 % cream Apply thin layer twice daily Methylcellulose, Laxative, (FIBER THERAPY) 500 mg tab Take 500 mg by mouth DAILY. miconazole (LOTRIMIN AF, DESENEX) 2 % powder Apply 1 application to affected area twice daily. meclizine (ANTIVERT) 25 mg tab Take 1 tablet by mouth three times daily as needed. lactulose (ENULOSE) 10 gram/15 mL solution Take 30 mL by mouth once daily. rifaximin (XIFAXAN) 550 mg tab Take 1 tablet by mouth twice daily. No current facility-administered medications on file prior to visit. 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 REVIEW OF SYSTEMS:GENERAL: No weight loss, malaise or fevers HEENT: Negative for frequent or significant headaches, No changes in hearing or vision, no nose bleeds or other nasal problems NECK: Negative for lumps, goiter, pain and significant neck swelling RESPIRATORY: Negative for cough, hemoptysis, wheezing, COPD, dyspnea or shortness of breath CARDIOVASCULAR: Hypertension SKIN: tips of fingers have completely healed ENDOCRINE: 2 recent blood sugars > 300, otherwise 150's -220 BP 134/56 (BP Site: Left Arm, BP Position: Sitting, BP Cuff Size: Large Adult) Pulse 64 Ht 173 cm (5' 8.11) Wt 129.8 kg (286 lb 3.2 oz) BMI 43.38 kg/m? General Appearance: Well appearing, alert, in no acute distress, well-hydrated, well nourished. and Obese Neck: supple, FROM, no adenopathy, no masses, no carotid bruits Lungs: clear to auscultation, no wheezing or rhonchi Heart: NSR, 4/6 murmur (history of ) Extremities: Edema: + 1 bilateral ankle edema. Some swelling in bilateral fingers, however hands are not swollen. ASSESSMENT/PLAN: 1. Anemia of chronic illness - ICD9: 285.29, ICD10: D63.8 (primary diagnosis) Requiring frequent transfusions, aranesp. Following with GI and hematology. 2. Need for vaccination - ICD9: V05.9, ICD10: Z23 - ADMIN OF INFLUENZA VACCINE 3. Other cirrhosis of liver (HCC) - ICD9: 571.5, ICD10: K74.69 Stable, to re-establish with [facility] - Dr. Hodges no longer accepting patient's insurance 4. Essential hypertension - ICD9: 401.9, ICD10: I10 - good control - Continue current medication(s) 5. Mixed hyperlipidemia - ICD9: 272.2, ICD10: E78.2 - good control - Continue current medication. 6. Uncontrolled type 2 diabetes mellitus with stage 3 chronic kidney disease, with long-term current use of insulin (HCC) - ICD9: 250.52, 585.3, V58.67, ICD10: E11.22, E11.65, N18.3, Z79.4 poorly controlled - recently, a1c not accurate due to severe anemia - Continue current medications - F/u endocrinology Kayla Bernstein APRN.[place] Observed: 05/12/2018 Status: COMPLETED Source: [place] 9:00 AM [facility] REPOSITORY Office Visit ([facility]) HANG MEZA ([id number]) 1940 M Date Time Provider Department 05/12/18 9:00 AM KAYLA BERNSTEIN ([facility] [employer]) [facility] During your visit today, we recorded the following information about you: Pulse Blood pressure Weight Height 64/minute 134/56 129.8 kg 1.73 m Kayla Bernstein APRN.CNP 05/14/2018 11:05 AM Signed SUBJECTIVE: Hang Meza is a 78 year old male Patient presents with: Follow Up Presents with daughter to f/u - Insurance changed - can no longer see Dr. Hodges in GI. Plans to f/u with Dr. Jones. Needs help with prior auth for Xifaxan. Following with Dr. Pardo - weekly hbg/hct, aranesp and/or blood transfusions frequently. Seeing Dr. Lee upcoming - blood sugars: occasional higher readings in 300's, typically after dinner. 1-2 times/in past month. Typically between 120-265. Following with Dr. Ball - following labs - last done 05/07/18. No changes made - still taking Lasix 80 mg daily, Aldactone 25 mg twice daily. Sees nephrology on 05/14/18. CURRENT MEDICATIONS: Current Outpatient Prescriptions on File Prior to Visit: pantoprazole DR (PROTONIX) 40 mg tablet Take 1 tablet by mouth twice daily. 30 minutes before eating. cephALEXin (KEFLEX) 500 mg capsule Take 500 mg by mouth twice daily. spironolactone (ALDACTONE) 25 mg tablet Take 25 mg by mouth twice daily. simvastatin (ZOCOR) 20 mg tablet Take 1 tablet by mouth once daily. furosemide (LASIX) 40 mg tablet Take 2 tablets by mouth once daily. levothyroxine (SYNTHROID) 25 mcg tablet Take 1 tablet by mouth once daily. multivit-min/FA/lycopen/lutein (CENTRUM SILVER MEN ORAL) Take 1 tablet by mouth once daily. lancets (FREESTYLE LANCETS) 28 gauge misc Test blood glucose 4 times daily Insulin [place], Disposable, (BD ULTRAFINE III MINI PEN) 31 gauge x 3/16 ndle USE WITH INSULIN PENS 4 TIMES DAILY FREESTYLE LITE STRIPS test strip Test blood glucose 4 times daily insulin glargine (LANTUS SOLOSTAR, BASAGLAR KWIKPEN) 100 unit/mL (3 mL) inpn Inject 25 Units subcutaneously twice daily. darbepoetin janene in albumn violet (ARANESP INJECTION) by INJECTION(UNSPECIFIED PARENTERAL ROUTES) route as needed. sucralfate (CARAFATE) 1 gram tablet Take 1 tablet by mouth four times daily. insulin lispro (HUMALOG KWIKPEN) 100 unit/mL pen 12 u with breakfast, 22 u with lunch, 15 u with dinner plus 2 u per 50 > 150 TDD 90 units ferrous sulfate 325 mg (65 mg iron) tablet Take 1 tablet by mouth daily with breakfast. metoprolol tartrate, short acting, (LOPRESSOR) 25 mg tablet Take 1 tablet by mouth twice daily. PSYLLIUM HUSK (METAMUCIL ORAL) Take by mouth once daily. loratadine (CLARITIN) 10 mg tablet Take 10 mg by mouth once daily. as needed desoximetasone (TOPICORT) 0.25 % cream Apply thin layer twice daily Methylcellulose, Laxative, (FIBER THERAPY) 500 mg tab Take 500 mg by mouth DAILY. miconazole (LOTRIMIN AF, DESENEX) 2 % powder Apply 1 application to affected area twice daily. meclizine (ANTIVERT) 25 mg tab Take 1 tablet by mouth three times daily as needed. lactulose (ENULOSE) 10 gram/15 mL solution Take 30 mL by mouth once daily. rifaximin (XIFAXAN) 550 mg tab Take 1 tablet by mouth twice daily. No current facility-administered medications on file prior to visit. 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 REVIEW OF SYSTEMS:GENERAL: No weight loss, malaise or fevers HEENT: Negative for frequent or significant headaches, No changes in hearing or vision, no nose bleeds or other nasal problems NECK: Negative for lumps, goiter, pain and significant neck swelling RESPIRATORY: Negative for cough, hemoptysis, wheezing, COPD, dyspnea or shortness of breath CARDIOVASCULAR: Hypertension SKIN: tips of fingers have completely healed ENDOCRINE: 2 recent blood sugars > 300, otherwise 150's -220 BP 134/56 (BP Site: Left Arm, BP Position: Sitting, BP Cuff Size: Large Adult) Pulse 64 Ht 173 cm (5' 8.11) Wt 129.8 kg (286 lb 3.2 oz) BMI 43.38 kg/m? General Appearance: Well appearing, alert, in no acute distress, well-hydrated, well nourished. and Obese Neck: supple, FROM, no adenopathy, no masses, no carotid bruits Lungs: clear to auscultation, no wheezing or rhonchi Heart: NSR, 4/6 murmur (history of ) Extremities: Edema: + 1 bilateral ankle edema. Some swelling in bilateral fingers, however hands are not swollen. ASSESSMENT/PLAN: 1. Anemia of chronic illness - ICD9: 285.29, ICD10: D63.8 (primary diagnosis) Requiring frequent transfusions, aranesp. Following with GI and hematology. 2. Need for vaccination - ICD9: V05.9, ICD10: Z23 - ADMIN OF INFLUENZA VACCINE 3. Other cirrhosis of liver (HCC) - ICD9: 571.5, ICD10: K74.69 Stable, to re-establish with [facility] - Dr. Hodges no longer accepting patient's insurance 4. Essential hypertension - ICD9: 401.9, ICD10: I10 - good control - Continue current medication(s) 5. Mixed hyperlipidemia - ICD9: 272.2, ICD10: E78.2 - good control - Continue current medication. 6. Uncontrolled type 2 diabetes mellitus with stage 3 chronic kidney disease, with long-term current use of insulin (HCC) - ICD9: 250.52, 585.3, V58.67, ICD10: E11.22, E11.65, N18.3, Z79.4 poorly controlled - recently, a1c not accurate due to severe anemia - Continue current medications - F/u endocrinology Kayla Bernstein APRN.[employer]OPE STAMPING MACHINE OPERATOR Megan Briggs Ma 05/12/2018 10:23 AM Signed Patient given Tdap IM in the left deltoid. Patient tolerated injection well. Lot#: [id number] Exp date: 2020 Megan Briggs Ma 05/12/2018 10:25 AM Signed Influenza Vaccine Documentation: ? Patient is identified by name and date of : Yes ? Patient is older than 6 months of age: Yes ? Patient denies a severe allergy to any vaccine component or to a previous dose of influenza vaccine: Yes FOR EGG ALLERGY CONCERNS, REFER TO PROVIDER. ? Denies allergy to gelatin, formaldehyde, thimerosol :Yes ? Patient is afebrile and not moderately or severely ill: Yes ? Does the patient have a history of Guillain ?Acton Syndrome (a severe paralytic illness): No ? Denies bone marrow transplant prior 6 months or solid organ transplant prior 3 months: Yes ? Denies a history of fainting after a prior injection or medical procedure? Yes If patient has fainted in the past, the CDC recommends sitting or lying down for 15 minutes after the vaccination. ? VIS sheet provided: Yes ? See Immunization Form in [facility] for details of immunizations administered today. If patient reports dizziness, vision changes or ringing in the ears post vaccination ? please have patient sit or lie down for 15 minutes. Patient given Flu IM in the right deltoid. Patient tolerated injection well. Lot#: [id number] Exp date: 11/07/2018 Megan Briggs Ma Referring Provider: KAYLA BERNSTEIN (HARNESS INSTALLER) [[id number]] Allergies As of Date: 05/12/2018 (No Known Allergies) Date Reviewed: 05/12/2018 Reviewed by: Megan Briggs Ma - Fully Assessed Reason for Visit: Follow Up [171] Primary Visit Diagnosis:Anemia of chronic illness [D63.8] Other Visit Diagnoses:Need for vaccination [Z23] Other cirrhosis of liver (HCC) [K74.69] Essential hypertension [I10] Mixed hyperlipidemia [E78.2] Uncontrolled type 2 diabetes mellitus with stage 3 chronic kidney disease, with long- term current use of insulin (HCC) [E11.22, E11.65, N18.3, Z79.4] Order(s):ADMIN OF INFLUENZA VACCINE [[id number]] Order #: [id number]: 1 INFLUENZA SEASONAL HIGH DOSE AGE 65+ [[id number]] Order #: [id number] TDAP VACCINE AGE 7+ IM [[id number]] Order #: [id number] Prescriptions as of 05/12/2018 Sig: PANTOPRAZOLE 40 MG TABLET,DEL* Take 1 tablet by mouth twice * SPIRONOLACTONE 25 MG TABLET Take 25 mg by mouth twice garett* SIMVASTATIN 20 MG TABLET Take 1 tablet by mouth once d* FUROSEMIDE 40 MG TABLET Take 2 tablets by mouth once * LEVOTHYROXINE 25 MCG TABLET Take 1 tablet by mouth once d* CENTRUM SILVER MEN ORAL Take 1 tablet by mouth once d* LANCETS 28 GAUGE Test blood glucose 4 times da* PEN NEEDLE, DIABETIC 31 GAUGE* USE WITH INSULIN PENS 4 TIMES* FREESTYLE LITE STRIPS Test blood glucose 4 times da* INSULIN GLARGINE (U-100) 100 * Inject 25 Units subcutaneousl* ARANESP INJECTION by INJECTION(UNSPECIFIED PARE* SUCRALFATE 1 GRAM TABLET Take 1 tablet by mouth four t* INSULIN LISPRO 100 UNIT/ML JAIMES* 12 u with breakfast, 22 u wit* FERROUS SULFATE 325 MG (65 MG* Take 1 tablet by mouth daily * METOPROLOL TARTRATE 25 MG TAB* Take 1 tablet by mouth twice * METAMUCIL ORAL Take by mouth once daily. LORATADINE 10 MG TABLET Take 10 mg by mouth once lilian* DESOXIMETASONE 0.25 % TOPICAL* Apply thin layer twice daily METHYLCELLULOSE (LAXATIVE) 50* Take 500 mg by mouth DAILY. MICONAZOLE NITRATE 2 % TOPICA* Apply 1 application to affect* MECLIZINE 25 MG TABLET Take 1 tablet by mouth three * LACTULOSE 10 GRAM/15 ML ORAL * Take 30 mL by mouth once lilian* RIFAXIMIN 550 MG TABLET Take 1 tablet by mouth twice * Problem List As Of Date 05/12/2018 Noted Resolved Viral gastroenteritis [A08.4] INVALID FOR*09/06/2014 Dehydration [E86.0] INVALID FOR*09/06/2014 Hypothyroidism [E03.9] GERD (gastroesophageal reflux disease) [K21.9] Renal disorder [N28.9] More... 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 History of colonic polyps [Z86.010] INVALID FOR* More... Morbid obesity (HCC) [E66.01] INVALID FOR* Anemia, chronic renal failure, stage 3 (moderat*INVALID FOR* Acute pancreatitis [K85.90] INVALID FOR*12/23/2017 Obesity, Class III, BMI >= 40 E66.01 [E66.01] INVALID FOR* Anemia [D64.9] INVALID FOR*12/23/2017 History of transfusion [Z92.89] INVALID FOR* More... Visit Notes: >> Megan Briggs Ma FriMay 12, 2018 10:23 AM Status: Signed Patient given Tdap IM in the left deltoid. Patient tolerated injection well. Lot#: [id number] Exp date: 2020 Megan Briggs Ma >> Megan Briggs Ma FriMay 12, 2018 10:24 AM Status: Signed Influenza Vaccine Documentation: ? Patient is identified by name and date of : Yes ? Patient is older than 6 months of age: Yes ? Patient denies a severe allergy to any vaccine component or to a previous dose of influenza vaccine: Yes FOR EGG ALLERGY CONCERNS, REFER TO PROVIDER. ? Denies allergy to gelatin, formaldehyde, thimerosol :Yes ? Patient is afebrile and not moderately or severely ill: Yes ? Does the patient have a history of Guillain ?Acton Syndrome (a severe paralytic illness): No ? Denies bone marrow transplant prior 6 months or solid organ transplant prior 3 months: Yes ? Denies a history of fainting after a prior injection or medical procedure? Yes If patient has fainted in the past, the CDC recommends sitting or lying down for 15 minutes after the vaccination. ? VIS sheet provided: Yes ? See Immunization Form in [facility] for details of immunizations administered today. If patient reports dizziness, vision changes or ringing in the ears post vaccination ? please have patient sit or lie down for 15 minutes. Patient given Flu IM in the right deltoid. Patient tolerated injection well. Lot#: [id number] Exp date: 11/07/2018 Megan Briggs Ma Medications Discontinued During This Encounter cephALEXin (KEFLEX) 500 mg capsule 05/12/2018 Class: Historical Med Route: ORAL Sig: Take 500 mg by mouth twice daily. Disc: Course of therapy completed Disposition: Return in about 3 months (around 08/11/2018). Follow-up and Disposition History Recorded Encounter Status:Closed by KAYLA BERNSTEIN CNP on 05/14/18 RENITA ABS GR + CBC Collected: 05/07/2018 Status: F Source: [place] 8:55 AM [facility] REPOSITORY TYPE CODE TESTS RESULT OUT OF REFERENCE UNITS RANGE LAB WWBC 3.70-11.00 k/uL [place] WBC 4.81 LAB WRBC 4.20-6.00 m/uL Low [place] RBC 2.37 LAB WHGB 13.0-17.0 g/dL Low [place] Hemoglobin 8.1 LAB WHCT 39.0-51.0 % Low [place] Hematocrit 26.2 LAB WMCV 80.0-100.0 fL [place] High MCV 110.5 LAB WMCH 26.0-34.0 pg [place] High MCH 34.2 LAB WMCHC 30.5-36.0 g/dL [place] MCHC 30.9 LAB WRDW 11.5-15.0 % [place] High RDW 19.6 LAB WPLT 150-400 k/uL Low [place] Platelet Cnt 81 LAB WMPV 9.0-12.7 fL [place] MPV 12.7 Result Comment: Test performed at: [facility], [address] [place] [address]. LAB ABGRAN 1.45-7.50 k/uL Absol 3.07 Gran Count LAB ABSNUC <0.01 k/uL Absolute nRBC Result checked and verified TYPE AND SCREEN Collected: 05/07/2018 Status: F Source: [place] 8:50 AM [facility] REPOSITORY Order Comment: PRETRANSFUSION HGB = 8.1 HCT = PERFORMED AT [facility] CMV NEG?* N Give When? 409125 Irradiated? N Leukodepleted? Y Reason for Type AND Screen/Red Cells: HEMORRHAGE, GI BLEED TYPE CODE TESTS RESULT OUT OF RANGE REFERENCE UNITS LAB B10.0800 A Normal BLOOD TYPE GEL POSITIVE LAB B100.4000 Normal Antibody NEGATIVE Screen Performed By: #### B101.7450 #### [facility] [address] [place], [address] Collected: 05/07/2018 Status: F Source: [place] 8:50 AM [facility] REPOSITORY TYPE CODE TESTS RESULT OUT OF REFERENCE UNITS RANGE LAB U100.0000 [id number] TRANSFUSED PRODUCT: T AND S with Crossmatch, Red Cells COUNT: 2 Performed By: #### U100.0000 #### [facility] - refer to report for specific site RENITA ABS GR + CBC Collected: 04/30/2018 Status: F Source: [place] 8:35 AM [facility] REPOSITORY TYPE CODE TESTS RESULT OUT OF REFERENCE UNITS RANGE LAB WWBC 3.70-11.00 k/uL [place] WBC 6.04 LAB WRBC 4.20-6.00 m/uL Low [place] RBC 2.53 LAB WHGB 13.0-17.0 g/dL Low [place] Hemoglobin 8.6 LAB WHCT 39.0-51.0 % Low [place] Hematocrit 27.5 LAB WMCV 80.0-100.0 fL [place] High MCV 108.7 LAB WMCH 26.0-34.0 pg [place] MCH 34.0 LAB WMCHC 30.5-36.0 g/dL [place] MCHC 31.3 LAB WRDW 11.5-15.0 % [place] High RDW 20.3 LAB WPLT 150-400 k/uL Low [place] Platelet Cnt 94 LAB WMPV 9.0-12.7 fL [place] MPV 12.6 Result Comment: Test performed at: [facility], [address] [place] [address] [address] [place] [address]. LAB ABGRAN 1.45-7.50 k/uL Absol Gran 3.97 Count PROGRESS Observed: 04/29/2018 Status: COMPLETED Source: [place] 3:56 PM [facility] REPOSITORY HNO ID: [id number] Author: Ca Silva Service: (none) Author Type: Registered Nurse Type: Progress Notes Filed: 04/29/2018 4:01 PM Note Text: PRIMARY CARE COORDINATION DISCHARGE Patient has been identified by name and date of : Yes Patient discharged from Primary Care Coordination: YES Goals met N/A Goals not met Patient engagement has not occurred despite ongoing education provided regarding the importance of following the physician plan of treatment Patient knowledgeable and confident in contacting Health Care Providers for questions or concerns: Address in Future Encounter Reinforced with patient and/or caregiver that Primary Care Coordination may be reinitiated if a change in status warrants navigation readmission: Address in Future Encounter Discussed with: N/A What was the Focus/Challenges addressed in Care Coordination? Education on Chronic Disease Management Resources Disposition: Follow up with PCP Care Team Tab - End: YES Ca Silva RN CNPTOUTREACH Observed: 04/29/2018 Status: COMPLETED Source: [place] 12:00 AM [facility] REPOSITORY Patient Outreach (INTMBR) HANG MEZA ([id number]) 1940 M Date Time Provider Department 04/29/18 CA SILVA During your visit today, we recorded the following information about you: Ca Silva RN 04/29/2018 4:01 PM Signed PRIMARY CARE COORDINATION DISCHARGE Patient has been identified by name and date of : Yes Patient discharged from Primary Care Coordination: YES Goals met N/A Goals not met Patient engagement has not occurred despite ongoing education provided regarding the importance of following the physician plan of treatment Patient knowledgeable and confident in contacting Health Care Providers for questions or concerns: Address in Future Encounter Reinforced with patient and/or caregiver that Primary Care Coordination may be reinitiated if a change in status warrants navigation readmission: Address in Future Encounter Discussed with: N/A What was the Focus/Challenges addressed in Care Coordination? Education on Chronic Disease Management Resources Disposition: Follow up with PCP Care Team Tab - End: YES Ca Silva RN Allergies As of Date: 04/29/2018 (No Known Allergies) Date Reviewed: 04/23/2018 Reviewed by: Opal Lobato LPN - Fully Assessed Reason for Visit: [place]- Other [[id number]] Cmt: discharge from care coordination Prescriptions as of 04/29/2018 Sig: CEPHALEXIN 500 MG CAPSULE Take 500 mg by mouth twice da* SPIRONOLACTONE 25 MG TABLET Take 25 mg by mouth twice garett* SIMVASTATIN 20 MG TABLET Take 1 tablet by mouth once d* FUROSEMIDE 40 MG TABLET Take 2 tablets by mouth once * LEVOTHYROXINE 25 MCG TABLET Take 1 tablet by mouth once d* PANTOPRAZOLE 40 MG TABLET,DEL* Take 1 tablet by mouth twice * CENTRUM SILVER MEN ORAL Take 1 tablet by mouth once d* LANCETS 28 GAUGE Test blood glucose 4 times da* PEN NEEDLE, DIABETIC 31 GAUGE* USE WITH INSULIN PENS 4 TIMES* FREESTYLE LITE STRIPS Test blood glucose 4 times da* INSULIN GLARGINE (U-100) 100 * Inject 25 Units subcutaneousl* ARANESP INJECTION by INJECTION(UNSPECIFIED PARE* SUCRALFATE 1 GRAM TABLET Take 1 tablet by mouth four t* INSULIN LISPRO 100 UNIT/ML JAIMES* 12 u with breakfast, 22 u wit* FERROUS SULFATE 325 MG (65 MG* Take 1 tablet by mouth daily * METOPROLOL TARTRATE 25 MG TAB* Take 1 tablet by mouth twice * METAMUCIL ORAL Take by mouth once daily. LORATADINE 10 MG TABLET Take 10 mg by mouth once lilian* DESOXIMETASONE 0.25 % TOPICAL* Apply thin layer twice daily METHYLCELLULOSE (LAXATIVE) 50* Take 500 mg by mouth DAILY. MICONAZOLE NITRATE 2 % TOPICA* Apply 1 application to affect* MECLIZINE 25 MG TABLET Take 1 tablet by mouth three * LACTULOSE 10 GRAM/15 ML ORAL * Take 30 mL by mouth once lilian* RIFAXIMIN 550 MG TABLET Take 1 tablet by mouth twice * Problem List As Of Date 04/29/2018 Noted Resolved Viral gastroenteritis [A08.4] INVALID FOR*09/06/2014 Dehydration [E86.0] INVALID FOR*09/06/2014 Hypothyroidism [E03.9] GERD (gastroesophageal reflux disease) [K21.9] Renal disorder [N28.9] More... 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 History of colonic polyps [Z86.010] INVALID FOR* More... Morbid obesity (HCC) [E66.01] INVALID FOR* Anemia, chronic renal failure, stage 3 (moderat*INVALID FOR* Acute pancreatitis [K85.90] INVALID FOR*12/23/2017 Obesity, Class III, BMI >= 40 E66.01 [E66.01] INVALID FOR* Anemia [D64.9] INVALID FOR*12/23/2017 History of transfusion [Z92.89] INVALID FOR* More... Encounter Status:Closed by CA SILAV on 04/29/18 RENITA ABS GR + CBC Collected: 04/23/2018 Status: F Source: [place] 8:35 AM [facility] REPOSITORY TYPE CODE TESTS RESULT OUT OF REFERENCE UNITS RANGE LAB WWBC 3.70-11.00 k/uL [place] WBC 6.13 LAB WRBC 4.20-6.00 m/uL Low [place] RBC 2.82 LAB WHGB 13.0-17.0 g/dL Low [place] Hemoglobin 9.4 LAB WHCT 39.0-51.0 % Low [place] Hematocrit 30.1 LAB WMCV 80.0-100.0 fL [place] High MCV 106.7 LAB WMCH 26.0-34.0 pg [place] MCH 33.3 LAB WMCHC 30.5-36.0 g/dL [place] MCHC 31.2 LAB WRDW 11.5-15.0 % [place] High RDW 20.4 LAB WPLT 150-400 k/uL Low [place] Platelet Cnt 87 LAB WMPV 9.0-12.7 fL [place] MPV 12.2 Result Comment: Test performed at: [facility], [address] [place] [address] [address] [place] [address]. LAB ABGRAN 1.45-7.50 k/uL Absol Gran 3.91 Count BASIC METABOLIC PANL Collected: 04/23/2018 Status: F Source: [place] 8:35 AM [facility] REPOSITORY TYPE CODE TESTS RESULT OUT OF REFERENCE UNITS RANGE LAB GLU 74-99 mg/dL High Glucose 209 Result Comment: The [place] [employer] (ADA) provides guidance for cutoff values for fasting glucose and random glucose. The ADA defines fasting as no caloric intake for at least 8 hours. Fas ting plasma glucose results between 100 to 125 mg/dL indicate increased risk for diabetes (prediabetes). Fasting plasma glucose results greater than or equal to 126 mg/dL meet the criteria for diagnosis of diabetes. In the absence of unequivocal hyperglycemia, results should be confirmed by repeat testing. In a patient with classic symptoms of hyperglycemia or hyperglycemic crisis, random plasma glucose results greater than or equal to 200 mg/dL meet the criteria for diagnosis of diabetes. Reference: Standards of Medical Care in Diabetes 2016, [place] [employer]. Diabetes Care. 2016.39(Suppl 1). LAB BUN 9-24 mg/dL BUN High 40 LAB CRET 0.73-1.22 mg/dL Creatinine High 2.06 LAB NA 136-144 mmol/L Sodium 138 LAB K 3.7-5.1 mmol/L Potassium 4.2 LAB CL 97-105 mmol/L Low Chloride 95 LAB CO2 22-30 mmol/L CO2 27 LAB AGAP 9-18 mmol/L Anion Gap 16 LAB CA 8.5-10.2 mg/dL Calcium, Total 8.7 LAB GFRAA eGFR- Amer. 38 LAB GFRNAA . eGFR-All Other Races 31 Result Comment: eGFR (Estimated GFR) Units of measure: mL/min/1.73 meters squared eGFR is derived from the reexpressed MDRD Study equation using the following parameters: serum creatinine, age, gender and race. The creatinine assay has been calibrated to be traceable to IDMS. An eGFR <60 mL/min/1.73m2 for >3 months is consistent with chronic kidney disease. Refer to KDOQI guidelines for clinical interpretation. In patients with unstable renal function, e.g. those with acute kidney injury, the eGFR may not accurately reflect actual GFR. Performed By: #### BMP #### [facility] [address] [place], [place] [address] TYPE AND SCREEN Collected: 04/16/2018 Status: F Source: [place] 8:25 AM [facility] REPOSITORY Order Comment: PRETRANSFUSION HGB = 8.2 HCT = 26.2 PERFORMED AT [facility] CMV NEG?* N Give When? 04-18-18 @ 0900 Irradiated? N Leukodepleted? Y Reason for Type AND Screen/Red Cells: ANEMIA TYPE CODE TESTS RESULT OUT OF RANGE REFERENCE UNITS LAB B10.0800 A Normal BLOOD TYPE GEL POSITIVE LAB B100.4000 Normal Antibody NEGATIVE Screen Performed By: #### B101.7450 #### [facility] [address] [place], [address] RC Collected: 04/16/2018 Status: F Source: [place] 8:25 AM [facility] REPOSITORY TYPE CODE TESTS RESULT OUT OF REFERENCE UNITS RANGE LAB U100.0000 [id number] TRANSFUSED PRODUCT: T AND S with Crossmatch, Red Cells COUNT: 2 Performed By: #### U100.0000 #### [facility] - refer to report for specific site [place] ABS GR + CBC Collected: 04/16/2018 Status: F Source: [place] 8:25 AM [facility] REPOSITORY TYPE CODE TESTS RESULT OUT OF REFERENCE UNITS RANGE LAB WWBC 3.70-11.00 k/uL [place] WBC 5.16 LAB WRBC 4.20-6.00 m/uL Low [place] RBC 2.38 LAB WHGB 13.0-17.0 g/dL Low [place] Hemoglobin 8.2 LAB WHCT 39.0-51.0 % Low [place] Hematocrit 26.2 LAB WMCV 80.0-100.0 fL [place] High MCV 110.1 LAB WMCH 26.0-34.0 pg [place] High MCH 34.5 LAB WMCHC 30.5-36.0 g/dL [place] MCHC 31.3 LAB WRDW 11.5-15.0 % [place] High RDW 20.6 LAB WPLT 150-400 k/uL Low [place] Platelet Cnt 75 LAB WMPV 9.0-12.7 fL [place] MPV 12.3 Result Comment: Test performed at: [facility], [address] [place] [address]., [place] [address]. LAB ABGRAN 1.45-7.50 k/uL Absol 3.28 Gran Count LAB ABSNUC <0.01 k/uL Absolute nRBC Result checked and verified PROGRESS Observed: 04/10/2018 Status: COMPLETED Source: [place] 3:01 PM [facility] REPOSITORY HNO ID: [id number] Author: Dinora Mccoy Service: (none) Author Type: (none) Type: Progress Notes Filed: 04/10/2018 3:02 PM Note Text: Left message on Katie phone. There are no derms . In [place] with [facility]. I gave her Dr. Naima Frederick phone in [place] [phone] Thank you Dinora Mccoy PROGRESS Observed: 04/09/2018 Status: COMPLETED Source: [place] 12:57 PM [facility] [place] REPOSITORY HNO ID: [id number] Author: Deion Pardo Service: (none) Author Type: Physician Type: Progress Notes Filed: 04/10/2018 7:58 AM Note Text: PALLIATIVE MEDICINE PROGRESS NOTE SERVICE DATE: 04/09/2018 Primary Site of Disease/Medical Illness: chronic anemia, congestive heart failure, ischemic heart disease, stage IV renal failure, GI bleeding AND chronic liver disease. CHIEF COMPLAINT: generalized weakness and fatigue secondary to anemia and congestive heart failure. PERTINENT MEDICAL HISTORY: as above. HISTORY OF PRESENT ILLNESS: 77-year-old gentleman with history of chronic anemia who presented to [facility] because of a recent fall and loss of consciousness. He has a chronic anemia for many years, but beginning last fall his hemoglobin has been dropping rapidly. GI workup including EGD and colonoscopy showed?no source of bleeding or pathology. A benign polyp was removed from his colon, and?there were no evidence of esophageal varices. ? He saw?Dr. Hodges (hepatology) last month for chronic liver disease, and cirrhosis. Patient has history of fatty liver disease, but no review his liver biopsy. he denied jaundice or any evidence of ascites. he had previous endoscopy colonoscopy last year here with Dr. Jones. ?He also saw?Dr. Ball (nephrology) for?chronic renal failure.?Aldactone decreased to once daily. Increased iron supplement once daily for anemia. He also has history of thrombocytopenia, without any bleeding issues. he denied rectal bleeding, melena, hematuria or hemoptysis. ? Patient has no history of alcohol use, or viral hepatitis. ?Patient has been feeling more tired in the last 4-6 weeks. He has dyspnea with exertion, but no chest pain or palpitation. He denied dizziness or lightheadedness. No increased lethargy or frequent headaches. He has fallen one time in the last 3 months. +cold intolerance, no restless legs symptoms. Patient denied jaundice or dark urine or yarelis colored stool. Complain of frequent urination at night which keep him up. ?He also noted increase in edema. ?He denied change in weight or decreased appetite. He is a and was once. He is not sexually active. No family history of cancer or anemia, son with HIV. He had multiple hospitalization and blood transfusion for the last 3 months. interim history: Mr. Hang Meza has been receiving blood transfusion every 2 weeks with recurrent congestive heart failure and fluid retention. He was discharged from hospital recently for shortness of breath secondary to CHF. Dr. Kim has increased his Lasix and start spironolactone. He still has an infectious cellulitis. He is scheduled to see Dr. Hodges for next week for EGD because of anemia and possible upper GI or esophageal bleeding.His hemoglobin was 7.5 last week after receiving blood transfusion. He also has moderate fatigue and mild lethargy, and mild decrease in appetite. He complained of stable angina, and significant edema with anasarcus Modified ESAS ([place] Symptom Assessment Scale):Information Provided By: Patient Pain: Mild Nausea: None Loss of Appetite: Mild Constipation: None Shortness of Breath: None Drowsiness: Mild Tiredness: Moderate Depression: None Anxiety: None How you feel overall: Fair Other problem: None Palliative Performance Scale % (PPS): 50% Oral Intake: Normal (0) Edema: Present (1.0) Dyspnea at Rest: Absent (0) Delirium: Absent (0) Palliative Prognostic Index (PPI) Total Score: 3.0 Note: The scores from each prognostic domain are added. A score of 0 to 2.0 was associated with a median survival of 90 days; score of 2.1 to 4.0 is 61 days, and score of >4.0 is 12 days. PHYSICAL EXAMINATION: Vital signs: BP 128/59 Pulse 84 Temp 36.4 ?C (97.5 ?F) (Temporal Artery) Wt 128.8 kg (284 lb) SpO2 96% BMI 43.18 kg/m? General Appearance: Overweight and Uncomfortable HEENT: Head is normocephalic, atraumatic. Sclerae white, conjunctivae pink. PEERL. EOMs are intact. Oropharynx is benign.Complexion pale w pallar LYMPHATICS: There is no palpable adenopathy in the neck, supraclavicular region, axillae, or groin. LUNGS: Lungs are clear to percussion and auscultation. diminished breath sounds at bases HEART: Heart is normal + grade 2/6 systolic?murmurs, no gallops, or rubs. ABDOMEN: obese, Soft and nontender without organomegaly. No masses or ascites. EXTREMITIES: Are +1?edema. NEUROLOGIC: Exam is physiologic DATA: Diagnostic tests reviewed for today's visit: Most recent labs Component Latest Ref Rng AND Units 04/09/2018 WBC, [place] 3.70 - 11.00 k/uL 4.67 RBC, [place] 4.20 - 6.00 m/uL 2.02 (L) Hemoglobin, [place] 13.0 - 17.0 g/dL 6.9 (L) Hematocrit, [place] 39.0 - 51.0 % 22.7 (L) MCV, [place] 80.0 - 100.0 fL 112.4 (H) MCH, [place] 26.0 - 34.0 pg 34.2 (H) MCHC, [place] 30.5 - 36.0 g/dL 30.4 (L) RDW, [place] 11.5 - 15.0 % 20.1 (H) Platelet Cnt, [place] 150 - 400 k/uL 76 (L) MPV, [place] 9.0 - 12.7 fL 12.8 (H) Absol Gran Count 1.45 - 7.50 k/uL 2.91 Component Latest Ref Rng AND Units 04/09/2018 Protein, Total 6.3 - 8.0 g/dL 7.1 Albumin 3.9 - 4.9 g/dL 3.7 (L) Calcium 8.5 - 10.2 mg/dL 8.7 Bilirubin, Total 0.2 - 1.3 mg/dL 0.8 Alkaline Phosphatase 36 - 108 U/L 52 AST 14 - 40 U/L 27 Glucose 74 - 99 mg/dL 178 (H) BUN 9 - 24 mg/dL 35 (H) Creatinine 0.73 - 1.22 mg/dL 1.92 (H) Sodium 136 - 144 mmol/L 140 Potassium 3.7 - 5.1 mmol/L 4.2 Chloride 97 - 105 mmol/L 96 (L) CO2 22 - 30 mmol/L 24 Anion Gap 9 - 18 mmol/L 20 (H) ALT 10 - 54 U/L 17 eGFR- 41 eGFR-All Other Races . 34 Component Latest Ref Rng AND Units 04/09/2018 Iron 41 - 186 ug/dL 209 (H) TIBC 232 - 386 ug/dL 324 Transferrin Saturation 15 - 57 % 65 (H) Ferritin 30.3 - 565.7 ng/mL 37.4 ASSESSMENT AND PLAN: 77-year-old gentleman with anemia chronic disease, recurrent GI bleeding requiring frequent blood transfusion. Multiple comorbidities including ischemic heart disease, congestive heart failure, chronic renal failure and liver disease. patient is scheduled for an upper endoscopy with Dr. Hodges next week He is not a candidate for colonoscopy or Endoscopy because of Failing health and morbidity. Plan: - we discussed option of continue supportive care with blood transfusion, iron infusion or Aranesp injection for his chronic anemia. Although this will not resolve his long-term problem with multiple comorbidity. - We also discussed stopping his transfusion and consult hospice for palliative care only if his upper endoscopy is negative for source of bleeding. - continue monitor CBC weekly for possible blood transfusion, or Aranesp injection. - Repeat CBC, CMP and iron study office visit in 8 weeks. - We discussed goals of care and quality of life issue today. Patient has a living will AND DPOA amount multiple family members will be established. I spent 25 minutes in the visit, with more than 50% of the total till-vm-mdtu time of the visit in counseling / coordination of care. Next Visit: 8 Weeks SIGNATURE: Deion Pardo MD PATIENT NAME: Hang Meza DATE: April 09, 2018 TIME: 12:57 PM PAGER/CONTACT #: Cc: Dr. Alexandre Hodges IRON AND TIBC Collected: 04/09/2018 Status: F Source: [place] 12:41 PM [facility] REPOSITORY TYPE CODE TESTS RESULT OUT OF REFERENCE UNITS RANGE LAB IRN 41-186 ug/dL Iron High 209 LAB TIBC 232-386 ug/dL TIBC 324 LAB SAT 15-57 % Transferrin High Saturatn 65 Performed By: #### IRON, FERR, CMP #### [facility] [address] [place] [address] FERRITIN Collected: 04/09/2018 Status: F Source: [place] 12:41 PM [facility] REPOSITORY TYPE CODE TESTS RESULT OUT OF REFERENCE UNITS RANGE LAB FERR 30.3-565.7 ng/mL Ferritin 37.4 Performed By: #### IRON, FERR, CMP #### [facility] [address] [place], [place] [address] COMP METABOLIC PANEL Collected: 04/09/2018 Status: F Source: [place] 12:41 PM [facility] REPOSITORY TYPE CODE TESTS RESULT OUT OF REFERENCE UNITS RANGE LAB TP 6.3-8.0 g/dL Protein, Total 7.1 LAB ALB 3.9-4.9 g/dL Low Albumin 3.7 LAB CA 8.5-10.2 mg/dL Calcium, Total 8.7 LAB TBIL 0.2-1.3 mg/dL Bilirubin, Total 0.8 LAB ALKP 36-108 U/L Alkaline Phosphatase 52 LAB AST 14-40 U/L AST 27 LAB GLU 74-99 mg/dL Glucose High 178 Result Comment: The [place] [employer] (ADA) provides guidance for cutoff values for fasting glucose and random glucose. The ADA defines fasting as no caloric intake for at least 8 hours. Fas ting plasma glucose results between 100 to 125 mg/dL indicate increased risk for diabetes (prediabetes). Fasting plasma glucose results greater than or equal to 126 mg/dL meet the criteria for diagnosis of diabetes. In the absence of unequivocal hyperglycemia, results should be confirmed by repeat testing. In a patient with classic symptoms of hyperglycemia or hyperglycemic crisis, random plasma glucose results greater than or equal to 200 mg/dL meet the criteria for diagnosis of diabetes. Reference: Standards of Medical Care in Diabetes 2016, [place] [employer]. Diabetes Care. 2016.39(Suppl 1). LAB BUN 9-24 mg/dL BUN High 35 LAB CRET 0.73-1.22 mg/dL Creatinine High 1.92 LAB NA 136-144 mmol/L Sodium 140 LAB K 3.7-5.1 mmol/L Potassium 4.2 LAB CL 97-105 mmol/L Low Chloride 96 LAB CO2 22-30 mmol/L CO2 24 LAB AGAP 9-18 mmol/L Anion Gap High 20 LAB ALT 10-54 U/L ALT 17 LAB GFRAA eGFR- Amer. 41 LAB GFRNAA . eGFR-All Other Races 34 Result Comment: eGFR (Estimated GFR) Units of measure: mL/min/1.73 meters squared eGFR is derived from the reexpressed MDRD Study equation using the following parameters: serum creatinine, age, gender and race. The creatinine assay has been calibrated to be traceable to IDMS. An eGFR <60 mL/min/1.73m2 for >3 months is consistent with chronic kidney disease. Refer to KDOQI guidelines for clinical interpretation. In patients with unstable renal function, e.g. those with acute kidney injury, the eGFR may not accurately reflect actual GFR. Performed By: #### IRON, FERR, CMP #### [facility] [address] [place], [place] [address] TYPE AND SCREEN Collected: 04/09/2018 Status: F Source: [place] 12:35 PM [facility] REPOSITORY Order Comment: PRETRANSFUSION HGB = 6.9 HCT = 22.7 PERFORMED AT [facility] CMV NEG?* N Give When? 04/10/18 @0930 Irradiated? N Leukodepleted? Y Reason for Type AND Screen/Red Cells: ANEMIA TYPE CODE TESTS RESULT OUT OF RANGE REFERENCE UNITS LAB B10.0800 A Normal BLOOD TYPE GEL POSITIVE LAB B100.4000 Normal Antibody NEGATIVE Screen Performed By: #### B101.7450 #### [facility] [address] [place], [address] Collected: 04/09/2018 Status: F Source: [place] 12:35 PM [facility] REPOSITORY TYPE CODE TESTS RESULT OUT OF REFERENCE UNITS RANGE LAB U100.0000 [id number] TRANSFUSED PRODUCT: T AND S with Crossmatch, Red Cells COUNT: 2 Performed By: #### U100.0000 #### [facility] - refer to report for specific site [facility] ABS GR + CBC Collected: 04/09/2018 Status: F Source: [place] 12:35 PM [facility] REPOSITORY TYPE CODE TESTS RESULT OUT OF REFERENCE UNITS RANGE LAB WWBC 3.70-11.00 k/uL [place] WBC 4.67 LAB WRBC 4.20-6.00 m/uL Low [place] RBC 2.02 LAB WHGB 13.0-17.0 g/dL Low [place] Hemoglobin 6.9 LAB WHCT 39.0-51.0 % Low [place] Hematocrit 22.7 LAB WMCV 80.0-100.0 fL [place] High MCV 112.4 Result Comment: Reviewed LAB WMCH 26.0-34.0 pg High [place] MCH 34.2 LAB WMCHC 30.5-36.0 g/dL Low [place] MCHC 30.4 LAB WRDW 11.5-15.0 % High [place] RDW 20.1 LAB WPLT 150-400 k/uL Low [place] 76 Platelet Cnt Result Comment: Result checked and verified NO CLOT LAB WMPV 9.0-12.7 fL High [place] MPV 12.8 Result Comment: Test performed at: [facility] [place], [address] [place] [address]. LAB ABGRAN 1.45-7.50 k/uL Absol Gran 2.91 Count Performed By: #### WAGCBC #### [facility] [address] [place], [place] [address] PROTIME Collected: 04/09/2018 Status: F Source: [place] 12:35 PM [facility] REPOSITORY TYPE CODE TESTS RESULT OUT OF RANGE REFERENCE UNITS LAB PSEC 9.7-13.0 sec PT Sec 12.5 LAB INR 0.9-1.3 PT INR 1.2 Result Comment: Vitamin K Antagonist (VKA) Therapeutic Range: INR 2 to 3 (Target INR of 2.5) Note: For patients treated with VKA drugs, such as warfarin, the [place] [employer] 2012 Guideline recommends a therapeutic INR range of 2 to 3 (target INR of 2.5). This recommendation includes high-risk patients with antiphospholipid syndrome with previous arterial or venous thromboembolism, current-generation mechanical or bioprosthetic aortic heart valve replacement. Note: Patients with mechanical aortic valve replacement and additional risk factors for thromboembolic events (atrial fibrillation, previous thromboembolism, LV dysfunction, hypercoagulable conditions) or an older generation mechanical AVR (i.e., ball in-Cage) or any mechanical MVR should have a INR therapeutic range of 2.5 to 3.5 (target INR of 3). Nava GH, et al. Chest 2012, 141:7S-47S Venessa RA, et al. [facility] 2017, 70: 252-289 Performed By: #### PT, PTT #### [facility] [address] [place], [place] [address] APTT Collected: 04/09/2018 Status: F Source: [place] 12:35 PM [facility] REPOSITORY TYPE CODE TESTS RESULT OUT OF RANGE REFERENCE UNITS LAB APTT 23.0-32.4 sec APTT 26.1 Result Comment: Unfractionated Heparin Therapeutic Ranges: Standard Heparin Nomogram: 53 to 78 seconds (anti-Xa level of 0.3 to 0.7 U/ml) Low Dose/ACS Nomogram: 49 to 67 seconds (anti-Xa level of 0.2 to 0.5 U/ml) Stroke Treatment Nomogram: 49 to 67 seconds (anti-Xa level of 0.2 to 0.5 U/ml) Note: The APTT therapeutic range has been determined for the current lot of laboratory APTT reagent in use throughout the [facility]. Performed By: #### PT, PTT #### [facility] [address] [place], [place] [address] CNOVSP Observed: 04/09/2018 Status: COMPLETED Source: [place] 12:10 PM [facility] REPOSITORY Visit (SP) Office (ALBERT) HANG MEZA ([id number]) 1940 M Date Time Provider Department 04/09/18 12:10 PM DEION PARDO During your visit today, we recorded the following information about you: Temperature Pulse Blood pressure Weight 97.5 degrees 84/minute 128/59 128.8 kg Deion Pardo MD 04/10/2018 7:58 AM Signed PALLIATIVE MEDICINE PROGRESS NOTE SERVICE DATE: 04/09/2018 Primary Site of Disease/Medical Illness: chronic anemia, congestive heart failure, ischemic heart disease, stage IV renal failure, GI bleeding AND chronic liver disease. CHIEF COMPLAINT: generalized weakness and fatigue secondary to anemia and congestive heart failure. PERTINENT MEDICAL HISTORY: as above. HISTORY OF PRESENT ILLNESS: 77-year-old gentleman with history of chronic anemia who presented to [facility] because of a recent fall and loss of consciousness. He has a chronic anemia for many years, but beginning last fall his hemoglobin has been dropping rapidly. GI workup including EGD and colonoscopy showed?no source of bleeding or pathology. A benign polyp was removed from his colon, and?there were no evidence of esophageal varices. ? He saw?Dr. Hodges (hepatology) last month for chronic liver disease, and cirrhosis. Patient has history of fatty liver disease, but no review his liver biopsy. he denied jaundice or any evidence of ascites. he had previous endoscopy colonoscopy last year here with Dr. Jones. ?He also saw?Dr. Ball (nephrology) for?chronic renal failure.?Aldactone decreased to once daily. Increased iron supplement once daily for anemia. He also has history of thrombocytopenia, without any bleeding issues. he denied rectal bleeding, melena, hematuria or hemoptysis. ? Patient has no history of alcohol use, or viral hepatitis. ?Patient has been feeling more tired in the last 4-6 weeks. He has dyspnea with exertion, but no chest pain or palpitation. He denied dizziness or lightheadedness. No increased lethargy or frequent headaches. He has fallen one time in the last 3 months. +cold intolerance, no restless legs symptoms. Patient denied jaundice or dark urine or yarelis colored stool. Complain of frequent urination at night which keep him up. ?He also noted increase in edema. ?He denied change in weight or decreased appetite. He is a and was once. He is not sexually active. No family history of cancer or anemia, son with HIV. He had multiple hospitalization and blood transfusion for the last 3 months. interim history: Mr. Hang Meza has been receiving blood transfusion every 2 weeks with recurrent congestive heart failure and fluid retention. He was discharged from hospital recently for shortness of breath secondary to CHF. Dr. Kim has increased his Lasix and start spironolactone. He still has an infectious cellulitis. He is scheduled to see Dr. Hodges for next week for EGD because of anemia and possible upper GI or esophageal bleeding.His hemoglobin was 7.5 last week after receiving blood transfusion. He also has moderate fatigue and mild lethargy, and mild decrease in appetite. He complained of stable angina, and significant edema with anasarcus Modified ESAS ([place] Symptom Assessment Scale):Information Provided By: Patient Pain: Mild Nausea: None Loss of Appetite: Mild Constipation: None Shortness of Breath: None Drowsiness: Mild Tiredness: Moderate Depression: None Anxiety: None How you feel overall: Fair Other problem: None Palliative Performance Scale % (PPS): 50% Oral Intake: Normal (0) Edema: Present (1.0) Dyspnea at Rest: Absent (0) Delirium: Absent (0) Palliative Prognostic Index (PPI) Total Score: 3.0 Note: The scores from each prognostic domain are added. A score of 0 to 2.0 was associated with a median survival of 90 days; score of 2.1 to 4.0 is 61 days, and score of >4.0 is 12 days. PHYSICAL EXAMINATION: Vital signs: BP 128/59 Pulse 84 Temp 36.4 ?C (97.5 ?F) (Temporal Artery) Wt 128.8 kg (284 lb) SpO2 96% BMI 43.18 kg/m? General Appearance: Overweight and Uncomfortable HEENT: Head is normocephalic, atraumatic. Sclerae white, conjunctivae pink. PEERL. EOMs are intact. Oropharynx is benign.Complexion pale w pallar LYMPHATICS: There is no palpable adenopathy in the neck, supraclavicular region, axillae, or groin. LUNGS: Lungs are clear to percussion and auscultation. diminished breath sounds at bases HEART: Heart is normal + grade 2/6 systolic?murmurs, no gallops, or rubs. ABDOMEN: obese, Soft and nontender without organomegaly. No masses or ascites. EXTREMITIES: Are +1?edema. NEUROLOGIC: Exam is physiologic DATA: Diagnostic tests reviewed for today's visit: Most recent labs Component Latest Ref Rng AND Units 04/09/2018 WBC, [place] 3.70 - 11.00 k/uL 4.67 RBC, [place] 4.20 - 6.00 m/uL 2.02 (L) Hemoglobin, [place] 13.0 - 17.0 g/dL 6.9 (L) Hematocrit, [place] 39.0 - 51.0 % 22.7 (L) MCV, [place] 80.0 - 100.0 fL 112.4 (H) MCH, [place] 26.0 - 34.0 pg 34.2 (H) MCHC, [place] 30.5 - 36.0 g/dL 30.4 (L) RDW, [place] 11.5 - 15.0 % 20.1 (H) Platelet Cnt, [place] 150 - 400 k/uL 76 (L) MPV, [place] 9.0 - 12.7 fL 12.8 (H) Absol Gran Count 1.45 - 7.50 k/uL 2.91 Component Latest Ref Rng AND Units 04/09/2018 Protein, Total 6.3 - 8.0 g/dL 7.1 Albumin 3.9 - 4.9 g/dL 3.7 (L) Calcium 8.5 - 10.2 mg/dL 8.7 Bilirubin, Total 0.2 - 1.3 mg/dL 0.8 Alkaline Phosphatase 36 - 108 U/L 52 AST 14 - 40 U/L 27 Glucose 74 - 99 mg/dL 178 (H) BUN 9 - 24 mg/dL 35 (H) Creatinine 0.73 - 1.22 mg/dL 1.92 (H) Sodium 136 - 144 mmol/L 140 Potassium 3.7 - 5.1 mmol/L 4.2 Chloride 97 - 105 mmol/L 96 (L) CO2 22 - 30 mmol/L 24 Anion Gap 9 - 18 mmol/L 20 (H) ALT 10 - 54 U/L 17 eGFR- 41 eGFR-All Other Races . 34 Component Latest Ref Rng AND Units 04/09/2018 Iron 41 - 186 ug/dL 209 (H) TIBC 232 - 386 ug/dL 324 Transferrin Saturation 15 - 57 % 65 (H) Ferritin 30.3 - 565.7 ng/mL 37.4 ASSESSMENT AND PLAN: 77-year-old gentleman with anemia chronic disease, recurrent GI bleeding requiring frequent blood transfusion. Multiple comorbidities including ischemic heart disease, congestive heart failure, chronic renal failure and liver disease. patient is scheduled for an upper endoscopy with Dr. Hodges next week He is not a candidate for colonoscopy or Endoscopy because of Failing health and morbidity. Plan: - we discussed option of continue supportive care with blood transfusion, iron infusion or Aranesp injection for his chronic anemia. Although this will not resolve his long-term problem with multiple comorbidity. - We also discussed stopping his transfusion and consult hospice for palliative care only if his upper endoscopy is negative for source of bleeding. - continue monitor CBC weekly for possible blood transfusion, or Aranesp injection. - Repeat CBC, CMP and iron study office visit in 8 weeks. - We discussed goals of care and quality of life issue today. Patient has a living will AND DPOA amount multiple family members will be established. I spent 25 minutes in the visit, with more than 50% of the total [id number]-[id number] time of the visit in counseling / coordination of care. Next Visit: 8 Weeks SIGNATURE: Deion Pardo MD PATIENT NAME: Hang Meza DATE: April 09, 2018 TIME: 12:57 PM PAGER/CONTACT #: Cc: Dr. Alexandre Hodges Referring Provider: KAYLA BERNSTEIN ([employer]) [[id number]] Allergies As of Date: 04/09/2018 (No Known Allergies) Date Reviewed: 04/09/2018 Reviewed by: Sienna Marques - Fully Assessed Reason for Visit: Established Patient [175] Primary Visit Diagnosis:Anemia, chronic renal failure, stage 3 (moderate) ([facility]) [N18.3, D63.1] Level of Service: EST PATIENT VISIT LEVEL 4 [60071] Disposition: Return in about 8 weeks (around 06/04/2018). Follow-up and Disposition History Recorded Prescriptions as of 04/09/2018 Sig: CEPHALEXIN 500 MG CAPSULE Take 500 mg by mouth twice da* SPIRONOLACTONE 25 MG TABLET Take 25 mg by mouth twice garett* SIMVASTATIN 20 MG TABLET Take 1 tablet by mouth once d* FUROSEMIDE 40 MG TABLET Take 2 tablets by mouth once * LEVOTHYROXINE 25 MCG TABLET Take 1 tablet by mouth once d* PANTOPRAZOLE 40 MG TABLET,DEL* Take 1 tablet by mouth twice * CENTRUM SILVER MEN ORAL Take 1 tablet by mouth once d* LANCETS 28 GAUGE Test blood glucose 4 times da* PEN NEEDLE, DIABETIC 31 GAUGE* USE WITH INSULIN PENS 4 TIMES* FREESTYLE LITE STRIPS Test blood glucose 4 times da* INSULIN GLARGINE (U-100) 100 * Inject 25 Units subcutaneousl* ARANESP INJECTION by INJECTION(UNSPECIFIED PARE* SUCRALFATE 1 GRAM TABLET Take 1 tablet by mouth four t* INSULIN LISPRO 100 UNIT/ML JAIMES* 12 u with breakfast, 22 u wit* FERROUS SULFATE 325 MG (65 MG* Take 1 tablet by mouth daily * METOPROLOL TARTRATE 25 MG TAB* Take 1 tablet by mouth twice * METAMUCIL ORAL Take by mouth once daily. LORATADINE 10 MG TABLET Take 10 mg by mouth once lilian* DESOXIMETASONE 0.25 % TOPICAL* Apply thin layer twice daily METHYLCELLULOSE (LAXATIVE) 50* Take 500 mg by mouth DAILY. MICONAZOLE NITRATE 2 % TOPICA* Apply 1 application to affect* MECLIZINE 25 MG TABLET Take 1 tablet by mouth three * LACTULOSE 10 GRAM/15 ML ORAL * Take 30 mL by mouth once lilian* RIFAXIMIN 550 MG TABLET Take 1 tablet by mouth twice * Problem List As Of Date 04/09/2018 Noted Resolved Viral gastroenteritis [A08.4] INVALID FOR*09/06/2014 Dehydration [E86.0] INVALID FOR*09/06/2014 Hypothyroidism [E03.9] GERD (gastroesophageal reflux disease) [K21.9] Renal disorder [N28.9] More... 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 History of colonic polyps [Z86.010] INVALID FOR* More... Morbid obesity (HCC) [E66.01] INVALID FOR* Anemia, chronic renal failure, stage 3 (moderat*INVALID FOR* Acute pancreatitis [K85.90] INVALID FOR*12/23/2017 Obesity, Class III, BMI >= 40 E66.01 [E66.01] INVALID FOR* Anemia [D64.9] INVALID FOR*12/23/2017 History of transfusion [Z92.89] INVALID FOR* More... Encounter Status:Closed by DEION PARDO MD on 04/10/18 PROGRESS Observed: 04/09/2018 Status: COMPLETED Source: [place] 8:45 AM [facility] REPOSITORY O ID: [id number] Author: Kayla Bernstein Service: (none) Author Type: Nurse Practitioner Type: Progress Notes Filed: 04/09/2018 9:03 AM Note Text: SUBJECTIVE: Hang Meza is a 77 year old male Patient presents with: Established Patient Follow Up Diabetes Presents to f/u with daughter, Addie. Seen in ER ([place]) recently- for DOVE noted by daughter. At time of ER visit, right fingers with previous blisters opened - treated in ER with Keflex. Lasix increased to 80 mg for 3 days, Aldactone 25 mg resumed twice daily (previously stopped due to Cr and hyperkalemia). Due for labs with Dr. Pardo upcoming 04/09, seeing Dr. Ball 05/14/18, Dr. Hodges next week - expected to undergo colonoscopy and EDG soon. CURRENT MEDICATIONS: Current Outpatient Prescriptions on File Prior to Visit: simvastatin (ZOCOR) 20 mg tablet Take 1 tablet by mouth once daily. furosemide (LASIX) 40 mg tablet Take 2 tablets by mouth once daily. levothyroxine (SYNTHROID) 25 mcg tablet Take 1 tablet by mouth once daily. pantoprazole DR (PROTONIX) 40 mg tablet Take 1 tablet by mouth twice daily. 30 minutes before eating. multivit-min/FA/lycopen/lutein (CENTRUM SILVER MEN ORAL) Take 1 tablet by mouth once daily. lancets (FREESTYLE LANCETS) 28 gauge misc Test blood glucose 4 times daily Insulin [place], Disposable, (BD ULTRAFINE III MINI PEN) 31 gauge x 3/16 ndle USE WITH INSULIN PENS 4 TIMES DAILY FREESTYLE LITE STRIPS test strip Test blood glucose 4 times daily insulin glargine (LANTUS SOLOSTAR, BASAGLAR KWIKPEN) 100 unit/mL (3 mL) inpn Inject 25 Units subcutaneously twice daily. darbepoetin janene in albumn violet (ARANESP INJECTION) by INJECTION(UNSPECIFIED PARENTERAL ROUTES) route as needed. sucralfate (CARAFATE) 1 gram tablet Take 1 tablet by mouth four times daily. insulin lispro (HUMALOG KWIKPEN) 100 unit/mL pen 12 u with breakfast, 22 u with lunch, 15 u with dinner plus 2 u per 50 > 150 TDD 90 units ferrous sulfate 325 mg (65 mg iron) tablet Take 1 tablet by mouth daily with breakfast. metoprolol tartrate, short acting, (LOPRESSOR) 25 mg tablet Take 1 tablet by mouth twice daily. PSYLLIUM HUSK (METAMUCIL ORAL) Take by mouth once daily. loratadine (CLARITIN) 10 mg tablet Take 10 mg by mouth once daily. as needed aspirin, enteric coated (ASPIRIN, ENTERIC COATED) 81 mg EC tablet Take 81 mg by mouth once daily. as needed desoximetasone (TOPICORT) 0.25 % cream Apply thin layer twice daily Methylcellulose, Laxative, (FIBER THERAPY) 500 mg tab Take 500 mg by mouth DAILY. miconazole (LOTRIMIN AF, DESENEX) 2 % powder Apply 1 application to affected area twice daily. meclizine (ANTIVERT) 25 mg tab Take 1 tablet by mouth three times daily as needed. lactulose (ENULOSE) 10 gram/15 mL solution Take 30 mL by mouth once daily. rifaximin (XIFAXAN) 550 mg tab Take 1 tablet by mouth twice daily. No current facility-administered medications on file prior to visit. 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 REVIEW OF SYSTEMS:GENERAL: Weight loss - 7 lb NECK: Negative for lumps, goiter, pain and significant neck swelling RESPIRATORY: See HPI CARDIOVASCULAR: Hypertension, See HPI SKIN: See HPI BP 112/68 Wt 128.8 kg (284 lb) BMI 43.18 kg/m? General Appearance: Well appearing, alert, in no acute distress, well-hydrated, well nourished. and Overweight Neck: supple, FROM, no adenopathy, no masses Lungs: clear to auscultation, no wheezing or rhonchi Heart: NSR, + murmur (history of ) Extremities: Edema: Trace to +1 pitting edema bilateral LE Skin: left hand with improved edema, left index and 2nd finger with open blisters with purple/red distal tips, no eschar, no surrounding edema or erythema, no drainage. ASSESSMENT/PLAN: 1. Bullous eruption, localized - ICD9: 694.9, ICD10: L13.9 (primary diagnosis) Likely due to peripheral edema - will obtain derm opinion - CONSULT TO DERMATOLOGY 2. Anemia, chronic renal failure, stage 3 (moderate) (HCC) - ICD9: 285.21, 585.3, ICD10: N18.3, D63.1 Check BMP 04/09/18 - will forward results to nephrology as well. - BASIC METABOLIC PNL Kayla Bernstein APRN.CNP CNOV Observed: 04/07/2018 Status: COMPLETED Source: [place] 9:20 AM [facility] REPOSITORY Office Visit ([facility]) HANG MEZA ([id number]) 1940 M Date Time Provider Department 04/07/18 9:20 AM KAYLA BERNSTEIN (NAILA) [facility] During your visit today, we recorded the following information about you: Blood pressure Weight 112/68 128.8 kg Kayla Bernstein APRN.ENVELOPE STAMPING MACHINE OPERATOR 04/09/2018 9:03 AM Signed SUBJECTIVE: Hang Meza is a 77 year old male Patient presents with: Established Patient Follow Up Diabetes Presents to f/u with daughter, Addie. Seen in ER ([place]) recently- for DOVE noted by daughter. At time of ER visit, right fingers with previous blisters opened - treated in ER with Keflex. Lasix increased to 80 mg for 3 days, Aldactone 25 mg resumed twice daily (previously stopped due to Cr and hyperkalemia). Due for labs with Dr. Pardo upcoming 04/09, seeing Dr. Ball 05/14/18, Dr. Hodges next week - expected to undergo colonoscopy and EDG soon. CURRENT MEDICATIONS: Current Outpatient Prescriptions on File Prior to Visit: simvastatin (ZOCOR) 20 mg tablet Take 1 tablet by mouth once daily. furosemide (LASIX) 40 mg tablet Take 2 tablets by mouth once daily. levothyroxine (SYNTHROID) 25 mcg tablet Take 1 tablet by mouth once daily. pantoprazole DR (PROTONIX) 40 mg tablet Take 1 tablet by mouth twice daily. 30 minutes before eating. multivit-min/FA/lycopen/lutein (CENTRUM SILVER MEN ORAL) Take 1 tablet by mouth once daily. lancets (FREESTYLE LANCETS) 28 gauge misc Test blood glucose 4 times daily Insulin [place], Disposable, (BD ULTRAFINE III MINI PEN) 31 gauge x 3/16 ndle USE WITH INSULIN PENS 4 TIMES DAILY FREESTYLE LITE STRIPS test strip Test blood glucose 4 times daily insulin glargine (LANTUS SOLOSTAR, BASAGLAR KWIKPEN) 100 unit/mL (3 mL) inpn Inject 25 Units subcutaneously twice daily. darbepoetin janene in albumn violet (ARANESP INJECTION) by INJECTION(UNSPECIFIED PARENTERAL ROUTES) route as needed. sucralfate (CARAFATE) 1 gram tablet Take 1 tablet by mouth four times daily. insulin lispro (HUMALOG KWIKPEN) 100 unit/mL pen 12 u with breakfast, 22 u with lunch, 15 u with dinner plus 2 u per 50 > 150 TDD 90 units ferrous sulfate 325 mg (65 mg iron) tablet Take 1 tablet by mouth daily with breakfast. metoprolol tartrate, short acting, (LOPRESSOR) 25 mg tablet Take 1 tablet by mouth twice daily. PSYLLIUM HUSK (METAMUCIL ORAL) Take by mouth once daily. loratadine (CLARITIN) 10 mg tablet Take 10 mg by mouth once daily. as needed aspirin, enteric coated (ASPIRIN, ENTERIC COATED) 81 mg EC tablet Take 81 mg by mouth once daily. as needed desoximetasone (TOPICORT) 0.25 % cream Apply thin layer twice daily Methylcellulose, Laxative, (FIBER THERAPY) 500 mg tab Take 500 mg by mouth DAILY. miconazole (LOTRIMIN AF, DESENEX) 2 % powder Apply 1 application to affected area twice daily. meclizine (ANTIVERT) 25 mg tab Take 1 tablet by mouth three times daily as needed. lactulose (ENULOSE) 10 gram/15 mL solution Take 30 mL by mouth once daily. rifaximin (XIFAXAN) 550 mg tab Take 1 tablet by mouth twice daily. No current facility-administered medications on file prior to visit. 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 REVIEW OF SYSTEMS:GENERAL: Weight loss - 7 lb NECK: Negative for lumps, goiter, pain and significant neck swelling RESPIRATORY: See HPI CARDIOVASCULAR: Hypertension, See HPI SKIN: See HPI BP 112/68 Wt 128.8 kg (284 lb) BMI 43.18 kg/m? General Appearance: Well appearing, alert, in no acute distress, well-hydrated, well nourished. and Overweight Neck: supple, FROM, no adenopathy, no masses Lungs: clear to auscultation, no wheezing or rhonchi Heart: NSR, + murmur (history of ) Extremities: Edema: Trace to +1 pitting edema bilateral LE Skin: left hand with improved edema, left index and 2nd finger with open blisters with purple/red distal tips, no eschar, no surrounding edema or erythema, no drainage. ASSESSMENT/PLAN: 1. Bullous eruption, localized - ICD9: 694.9, ICD10: L13.9 (primary diagnosis) Likely due to peripheral edema - will obtain derm opinion - CONSULT TO DERMATOLOGY 2. Anemia, chronic renal failure, stage 3 (moderate) (HCC) - ICD9: 285.21, 585.3, ICD10: N18.3, D63.1 Check BMP 04/09/18 - will forward results to nephrology as well. - BASIC METABOLIC PNL Kayla Bernstein APRN.ENVELOPE STAMPING MACHINE OPERATOR Dinora Mccoy 04/10/2018 3:02 PM Signed Left message on [employer] phone. There are no derms . In [place] with [facility]. I gave her Dr. Naima Frederick phone in [place] [phone] Thank you Dinora Mccoy Referring Provider: KAYLA BERNSTEIN (HARNESS INSTALLER) [[id number]] Allergies As of Date: 04/07/2018 (No Known Allergies) Date Reviewed: 04/07/2018 Reviewed by: Leeann Soliz Ma - Fully Assessed Reason for Visit: Established Patient [175] Follow Up [171] Diabetes [34] Primary Visit Diagnosis:Bullous eruption, localized [L13.9] Other Visit Diagnosis:Anemia, chronic renal failure, stage 3 (moderate) (HCC) [N18.3, D63.1] Order(s):CONSULT TO DERMATOLOGY [9006] Order #: [id number]: 1 BASIC METABOLIC PNL [SQBMP] Order #: [id number] FUTURE Prescriptions as of 04/07/2018 Sig: SIMVASTATIN 20 MG TABLET Take 1 tablet by mouth once d* FUROSEMIDE 40 MG TABLET Take 2 tablets by mouth once * LEVOTHYROXINE 25 MCG TABLET Take 1 tablet by mouth once d* PANTOPRAZOLE 40 MG TABLET,DEL* Take 1 tablet by mouth twice * CENTRUM SILVER MEN ORAL Take 1 tablet by mouth once d* LANCETS 28 GAUGE Test blood glucose 4 times da* PEN NEEDLE, DIABETIC 31 GAUGE* USE WITH INSULIN PENS 4 TIMES* FREESTYLE LITE STRIPS Test blood glucose 4 times da* INSULIN GLARGINE (U-100) 100 * Inject 25 Units subcutaneousl* ARANESP INJECTION by INJECTION(UNSPECIFIED PARE* SUCRALFATE 1 GRAM TABLET Take 1 tablet by mouth four t* INSULIN LISPRO 100 UNIT/ML JAIMES* 12 u with breakfast, 22 u wit* FERROUS SULFATE 325 MG (65 MG* Take 1 tablet by mouth daily * METOPROLOL TARTRATE 25 MG TAB* Take 1 tablet by mouth twice * METAMUCIL ORAL Take by mouth once daily. LORATADINE 10 MG TABLET Take 10 mg by mouth once lilian* X ASPIRIN 81 MG TABLET,DELAYED * Take 81 mg by mouth once lilian* DESOXIMETASONE 0.25 % TOPICAL* Apply thin layer twice daily METHYLCELLULOSE (LAXATIVE) 50* Take 500 mg by mouth DAILY. MICONAZOLE NITRATE 2 % TOPICA* Apply 1 application to affect* MECLIZINE 25 MG TABLET Take 1 tablet by mouth three * LACTULOSE 10 GRAM/15 ML ORAL * Take 30 mL by mouth once lilian* RIFAXIMIN 550 MG TABLET Take 1 tablet by mouth twice * Problem List As Of Date 04/07/2018 Noted Resolved Viral gastroenteritis [A08.4] INVALID FOR*09/06/2014 Dehydration [E86.0] INVALID FOR*09/06/2014 Hypothyroidism [E03.9] GERD (gastroesophageal reflux disease) [K21.9] Renal disorder [N28.9] More... 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 History of colonic polyps [Z86.010] INVALID FOR* More... Morbid obesity (HCC) [E66.01] INVALID FOR* Anemia, chronic renal failure, stage 3 (moderat*INVALID FOR* Acute pancreatitis [K85.90] INVALID FOR*12/23/2017 Obesity, Class III, BMI >= 40 E66.01 [E66.01] INVALID FOR* Anemia [D64.9] INVALID FOR*12/23/2017 History of transfusion [Z92.89] INVALID FOR* More... Follow-up and Disposition History Recorded Encounter Status:Closed by KAYLA BERNSTEIN CNP on 04/09/18 12 LEAD ELECTROCARDIOGRAM Observed: 04/06/2018 Status: F Source: [place] 1:51 PM [facility] REPOSITORY [facility] Cardiovascular Services [address] [place] [address] 12 Lead EKG 04/04/18 1514 MR#: [id number] Acct: [id number] Name: HANG MEZA Rep #: [id number] : 1940 77 From: Navdeep Pickens MD Attending Dr: Status: DEP ER Ordering Dr: Fabiana Enriquez MD Date: 04/04/18 Location: ED Sex: M C Admitted: Test Reason : SOB Blood Pressure : / mmHG Vent. Rate : 088 BPM Atrial Rate : 088 BPM P-R Int : 174 ms QRS Dur : 094 ms QT Int : 374 ms P-R-T Axes : 059 030 012 degrees QTc Int : 452 ms Normal sinus rhythm Normal ECG Confirmed by JAGUAR MCCONNELL, NAVDEEP ([id number]), news copy editor ANGIE ORTEGA ([id number]) on 04/06/2018 1:51:40 PM Referred By: EDEL Confirmed By:NAVDEEP PICKENS MD 04/06/18 1351 Date Navdeep Pickens MD CC: Kayla Bernstein; Fabiana Enriquez MD Signed EMERGENCY DEPARTMENT Observed: 04/05/2018 Status: F Source: [place] SUMMARY 12:18 AM [facility] REPOSITORY [facility] Medical Records Department [address] [place] [address] Emergency Department Summary 04/04/18 1508 MR#: [id number] Acct: [id number] Name: HANG MEZA Rep #: [id number] : 1940 77 From: Fabiana Enriquez MD PCP: Kayla Bernstein Status: DEP ER - ER Visit Summary Date of Service: 04/04/18 Chief Complaint: Shortness of breath History of Present Illness: The patient is a 77 M the family reports constant cruz between fluid retention and kidney function. Patient has had increasing swelling over the past couple weeks. His fingertips of his left hand split open this week because they are so puffy. He has had minimal shortness of breath at rest but increased shortness of breath with exertion. He denies chest pain. Medication list is reviewed and he is currently on 80 mg of Lasix once a day. Physical Examination: Blood pressure is 143/67, temperature 98, heart rate 90, respiratory rate 20, pulse ox 94% on room air. Patient is sitting upright in a bedside chair. He is in no acute distress and speaking full sentences. Head neck examination is unremarkable. Heart is regular rate and rhythm. He does have a 3/6 murmur noted. Lung sounds are slightly diminished at the bases but overall clear. Abdomen is soft, obese, nontender. Active bowel sounds noted throughout. Upper extremity examination reveals dry cracked skin at the distal fingertips of his left index and long fingers. Lower extremity examination reveals 3+ edema that is symmetric. Test Results: EKG is sinus 88 with no sign of acute ischemia. Two-view chest x-ray shows slightly prominent interstitial markings and mild cardiomegaly. CBC was normal white count. Hemoglobin 7.5 and platelet count is 93,000. Chemistry studies reveal a BUN of 41 and a creatinine of 1.96. LFTs are unremarkable. Troponin is negative. BNP is 135. Emergency Department Course and Treatment: Patient did require assistance getting up to bedside commode. Family states they have assistive devices at home and do feel comfortable with him at home. I spoke with the patient's network firewall engineer, Dr. Pal Kim. Patient is to increase his Lasix to 80 mg twice a day for the next 3 days. He also wishes to add Aldactone 25 mg twice daily. The wound to the left hand will be cleansed and dressed. He will be given Keflex to prevent infection. Treatment Plan: [] Disposition: Discharge Impression: CHF This note was generated with Beamly dictation software. It may contain incorrect words, spelling, and punctuation that were not noted in review of the chart prior to signing ED Disposition - Plan for ED Patient: Chief Complaint: Shortness of Breath Referrals: Kayla Bernstein NP-C [Primary Care Provider] - What to do if you have Problems For any increased pain, shortness of breath, bleeding, nausea or vomiting, chest pain, or any unexpected problems, contact your Primary Care Provider. Call [facility] ([phone]) or report to the closest Emergency Room. Call 911 if necessary. 04/05/18 0018 <Electronically signed by Fabiana Enriquez MD> Date Fabiana Enriquez MD Cosigner Signature (If Indicated): Date CC: Kayla Bernstein DISCHARGE INSTRUCTION Observed: 04/04/2018 Status: F Source: [place] 6:14 PM [facility] REPOSITORY [facility] Medical Records Department [address] [place] [address] Discharge Instruction 04/04/18 1812 MR#: [id number] Acct: [id number] Name: HANG MEZA Rep #: [id number] : 1940 77 From: Fabiana Enriquez MD PCP: Kayla Bernstein Status: REG ER ED Disposition - Plan for ED Patient: Disposition: Home or Assisted Living Chief Complaint: Shortness of Breath Instructions: ED CHF General Prescriptions: Cephalexin [Keflex] 500 mg PO BID #14 capsule Spironolactone [Aldactone] 25 mg PO BID #60 tablet Referrals: Kayla Bernstein NP-C [Primary Care Provider] - Additional Instructions: Increase your Lasix to 80mg twice a day for the next 3 days only. You will be given Aldactone as a second water pill What to do if you have Problems For any increased pain, shortness of breath, bleeding, nausea or vomiting, chest pain, or any unexpected problems, contact your Primary Care Provider. Call [facility] ([phone]) or report to the closest Emergency Room. Call 911 if necessary. 04/04/181813 <Electronically signed by Fabiana Enriquez MD> Date Fabiana Enriquez MD Cosigner Signature (If Indicated): Date CC: Kayla Bernstein CBC W/DIFF, AUTOMATED Collected: 04/04/2018 Status: F Source: [place] 3:10 PM [facility] REPOSITORY TYPE CODE TESTS RESULT OUT OF RANGE REFERENCE UNITS LAB L100.1000 4.4-11.0 K/mm3 Normal WBC 5.6 LAB L100.1200 4.6-6.2 M/mm3 Low RBC 2.27 LAB L100.1300 13.0-16.5 g/dl Low HGB 7.5 LAB L100.1400 40-54 % Low HCT 24.5 LAB L100.1500 80-94 fL High MCV 107.9 LAB L100.1600 27.0-32.0 pg High MCH 33.0 LAB L100.1700 32-36 g/gl Low MCHC 30.6 LAB L100.1810 11.6-14.6 % High RDW CV 20.9 LAB L100.1820 35.1-43.9 fl High RDW SD 81.7 LAB L100.1900 150-450 K/mm3 Low PLT 93 LAB L100.2000 6.2-12.0 fl High MPV 12.7 LAB L100.2100 47-70 % Normal NEUT% 66.1 LAB L100.2200 19-41 % Low LY% 15.9 LAB L100.2300 0-10 % High MONO% 13.8 LAB L100.2400 0-5 % Normal EO% 3.4 LAB L100.2500 0-1 % Normal BASO% 0.4 LAB L100.2550 0.0-0.9 % Normal IM GRAN % 0.400 Result Comment: IG% - Immature Granulocytes (promyelocytes, myelocytes and metamyelocytes) > 1% indicates that a LEFT SHIFT is Present. LAB L100.2620 2.0-7.7 X10 3/uL Absolute Neut Normal 3.7 LAB L100.2720 0.83-4.51 X10 3/ul Absolute Lymph Normal 0.89 LAB L100.5500 ADEQ PLT EST Normal MOD DEC LAB L100.7300 ANISO Normal 1+ LAB L100.7600 HYPOCHROMASIA Normal RARE LAB L100.7800 MACROCYTE Normal 1+ LAB L100.8200 OVALOCYTE Normal RARE Performed By: #### L100.0100 #### [facility] [address] [facility] [place], [place], [id number] PROTHROMBIN TIME W/INR Collected: 04/04/2018 Status: F Source: [place] 3:10 PM [facility] REPOSITORY TYPE CODE TESTS RESULT OUT OF RANGE REFERENCE UNITS LAB L300.4150 11.7-14.9 SECONDS High PROTIME 17.0 LAB L300.4200 Normal INR 1.4 Performed By: #### L300.3900, L300.4310 #### [facility] [address] [place], [place], [id number] PARTIAL THROMBOPLAST Collected: 04/04/2018 Status: F Source: [place] TIME 3:10 PM [facility] REPOSITORY TYPE CODE TESTS RESULT OUT OF REFERENCE UNITS RANGE LAB L300.4310 24.1-36.2 Seconds High PTT 38.3 Performed By: #### L300.3900, L300.4310 #### [facility] [address] [place], [place], [id number] BASIC METABOLIC Collected: 04/04/2018 Status: F Source: [place] PROFILE (BMP) 3:10 PM [facility] REPOSITORY TYPE CODE TESTS RESULT OUT OF RANGE REFERENCE UNITS LAB L501.0100 74-106 mg/dL High GLU 136 Result Comment: Fasting Glucose result greater than or equal to 126 mg/dL suggests DIABETES MELLITUS per A.D.A. criteria. Please note revised GLUCOSE reference range effective 2017. LAB L501.1000 7-18 mg/dL High BUN 41 LAB L501.1100 0.70-1.30 mg/dL High CREAT,SERUM 1.96 Result Comment: The validity of the calculated GFR AND GFRAA in patients over 70 years has not been determined. Clinical correlation is essential. LAB L501.1110 >60 mL/min Low EST GFR 35 Result Comment: Non- GFR Calc LAB L501.1115 >60 mL/min Low EST GFR - AA 43 Result Comment: GFR Calc LAB L501.1255 ml/min Normal Estimated CRCL 31.06 LAB L501.1300 10-20 RATIO High BUN/CRE 20.9 LAB L501.2200 8.5-10 mg/dL Low .1 CA 8.1 LAB L501.5300 136-14 mmol/L Normal 5 NA 144 LAB L501.5600 3.5-5. mmol/L Normal 1 K 3.8 LAB L501.5900 98-107 mmol/L Normal CL 104 LAB L501.6100 21.0-3 mmol/L Normal 2.0 CO2 27.0 LAB L501.6200 5-15 Normal GAP 13 Performed By: #### L500.2500, L500.3400, L501.4010 #### [facility] [address] [place], [place], [id number] LIVER PROFILE Collected: 04/04/2018 Status: F Source: [place] 3:10 PM [facility] REPOSITORY TYPE CODE TESTS RESULT OUT OF RANGE REFERENCE UNITS LAB L501.1500 6.4-8.2 g/dL Normal T PROT 7.5 LAB L501.1800 3.2-5.0 g/dL Normal ALB 3.2 LAB L501.1950 2.2-4.2 g/dL High GLOB 4.3 LAB L501.4100 15-37 U/L Normal AST 28 LAB L501.4305 45-117 U/L Normal ALK P 64 LAB L501.4405 16-61 U/L Normal ALT 25 LAB L501.4600 0.20-1.00 mg/dL Normal T BILI 0.70 LAB L501.4700 0.00-0.30 mg/dL High D BILI 0.33 Performed By: #### L500.2500, L500.3400, L501.4010 #### [facility] [address] [facility] [place], [address] TROPONIN-I Collected: 04/04/2018 Status: F Source: [place] 3:10 PM [facility] REPOSITORY TYPE CODE TESTS RESULT OUT OF RANGE REFERENCE UNITS LAB L501.4010 <0.045 ng/mL Normal < 0.015 TROPONIN-I Result Comment: TROPONIN-I EXPECTED VALUES <0.045 Negative 0.045 - 0.590 Consistent with Cardiac Damage > OR = 0.600 Critical Value Not every elevated troponin is indicative of MA. These values should be used with clinical judgement in examining the patient's clinical picture for diagnosis. To establish a diagnosis of MA versus myocardial injury, there must be a demonstrated rise and/or fall in the troponin values, in addition to ischemic symptoms, EKG changes, new regional wall motion abnormality, and/or angiographical evidence. PLEASE NOTE: REFERENCE RANGES EDITED 18 Performed By: #### L500.2500, L500.3400, L501.4010 #### [facility] [address] [facility] [place], [place], [id number] BNP,B-TYPE NATRIURETIC Collected: 04/04/2018 Status: F Source: [place] PEPTIDE 3:10 PM [facility] REPOSITORY TYPE CODE TESTS RESULT OUT OF RANGE REFERENCE UNITS LAB L503.6620 0-100 pg/mL High B-TYPE 135.6 HELENE PEP Performed By: #### L503.6620 #### [facility] [address] [place], [address] CHEST PA AND LATERAL Observed: 04/04/2018 Status: F Source: [place] 3:05 PM [facility] REPOSITORY [facility] Imaging Services [address] [place] [address] Chest PA and Lateral MR#: [id number] Acct: [id number] Name: HANG MEZA Rep #: [id number] : 1940 M 77 From: Kin Groves DO PCP: Kayla Bernstein Status: REG ER Study: Chest PA and Lateral Date of Exam: 04/04/18 Exam# [id number] Ordering Dr: Fabiana Enriquez MD STUDY: X-RAY CHEST REASON FOR EXAM: Male, 77 years old. Shortness of breath TECHNIQUE: PA and lateral views of the chest. COMPARISON: 12/19/2017 FINDINGS: Cardiac monitoring leads overlie the chest. The interstitial markings are prominent. There is no focal consolidation. There is no demonstrated pleural abnormality. There is mild cardiac enlargement. Normal mediastinum and jeannine. Normal visualized pulmonary arteries. There is mild calcification of the aortic arch. There are diffuse degenerative changes of the visualized thoracic spine. The bones are demineralized. There is no demonstrated abnormality of the visualized soft tissue structures of the upper abdomen. RAD/Chest PA and Lateral IMPRESSION: Slightly prominent interstitial markings with mild cardiomegaly. No focal consolidation. Electronically Signed: Kin Groves DO at 15:51 EDT Tel , Service support , CC: Kayla Bernstein; Fabiana Enriquez MD Wicker Worker: Signed PROGRESS Observed: 04/02/2018 Status: COMPLETED Source: [place] 10:27 AM [facility] REPOSITORY O ID: [id number] Author: Kayla Villagomez) Day Service: (none) Author Type: Nurse Practitioner Type: Progress Notes Filed: 04/02/2018 10:37 AM Note Text: SUBJECTIVE: Hang Meza is a 77 year old male Patient presents with: Derm Problem: blisters on tips of fingers Edema: bilateral hands Patient presents with daughter, Addie for concerns about blisters on left fingers. Remains on lasix 80 mg once daily. Aldactone remains on hold per nephrology. Continues with frequent blood transfusions (last transfusion last week). Seeing Dr. Cerrato (GI) for f/u to discuss repeat colonoscopy and EGD. CURRENT MEDICATIONS: Current Outpatient Prescriptions on File Prior to Visit: simvastatin (ZOCOR) 20 mg tablet Take 1 tablet by mouth once daily. levothyroxine (SYNTHROID) 25 mcg tablet Take 1 tablet by mouth once daily. pantoprazole DR (PROTONIX) 40 mg tablet Take 1 tablet by mouth twice daily. 30 minutes before eating. multivit-min/FA/lycopen/lutein (CENTRUM SILVER MEN ORAL) Take 1 tablet by mouth once daily. lancets (FREESTYLE LANCETS) 28 gauge misc Test blood glucose 4 times daily Insulin [place], Disposable, (BD ULTRAFINE III MINI PEN) 31 gauge x 3/16 ndle USE WITH INSULIN PENS 4 TIMES DAILY FREESTYLE LITE STRIPS test strip Test blood glucose 4 times daily insulin glargine (LANTUS SOLOSTAR, BASAGLAR KWIKPEN) 100 unit/mL (3 mL) inpn Inject 25 Units subcutaneously twice daily. darbepoetin janene in albumn violet (ARANESP INJECTION) by INJECTION(UNSPECIFIED PARENTERAL ROUTES) route as needed. sucralfate (CARAFATE) 1 gram tablet Take 1 tablet by mouth four times daily. insulin lispro (HUMALOG KWIKPEN) 100 unit/mL pen 12 u with breakfast, 22 u with lunch, 15 u with dinner plus 2 u per 50 > 150 TDD 90 units ferrous sulfate 325 mg (65 mg iron) tablet Take 1 tablet by mouth daily with breakfast. metoprolol tartrate, short acting, (LOPRESSOR) 25 mg tablet Take 1 tablet by mouth twice daily. PSYLLIUM HUSK (METAMUCIL ORAL) Take by mouth once daily. loratadine (CLARITIN) 10 mg tablet Take 10 mg by mouth once daily. as needed aspirin, enteric coated (ASPIRIN, ENTERIC COATED) 81 mg EC tablet Take 81 mg by mouth once daily. as needed desoximetasone (TOPICORT) 0.25 % cream Apply thin layer twice daily Methylcellulose, Laxative, (FIBER THERAPY) 500 mg tab Take 500 mg by mouth DAILY. miconazole (LOTRIMIN AF, DESENEX) 2 % powder Apply 1 application to affected area twice daily. meclizine (ANTIVERT) 25 mg tab Take 1 tablet by mouth three times daily as needed. lactulose (ENULOSE) 10 gram/15 mL solution Take 30 mL by mouth once daily. rifaximin (XIFAXAN) 550 mg tab Take 1 tablet by mouth twice daily. No current facility-administered medications on file prior to visit. 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 REVIEW OF SYSTEMS:GENERAL: No weight loss, malaise or fevers CARDIOVASCULAR: Hypertension, GI: No nausea, vomiting, or diarrhea, no hematochezia, no constipation SKIN: See HPI BP 110/68 Temp 37.2 ?C (99 ?F) (Tympanic) Wt 131.6 kg (290 lb 3.2 oz) BMI 44.12 kg/m? General Appearance: Well appearing, alert, in no acute distress, well-hydrated, well nourished. and Obese Neck: supple, FROM, no adenopathy, no masses Lungs: clear to auscultation, no wheezing or rhonchi Heart: NSR, Murmur 4/6 (aortic stenosis) Extremities: Edema: +1 bilateral ankles Skin: left index and middle finger with single large blister at distal palmar aspect respectively. No surrounding edema or erythema, no other rash or vesicles. Left hand is mildly edematous ASSESSMENT/PLAN: 1. Localized edema - ICD9: 782.3, ICD10: R60.[address] Meehan- will trial compression wrap to left hand and forearm, will continue to monitor left hand f/u with hematology, nephrology, and GI as scheduled for chronic persistent anemia, CKD - will follow with those specialists Kayla Bernstein APRN.[place] CNOV Observed: 04/01/2018 Status: COMPLETED Source: [place] 11:00 AM [facility] REPOSITORY Office Visit ([facility]) HANG MEZA ([id number]) 1940 M Date Time Provider Department 04/01/18 11:00 AM KAYLA BERNSTEIN (HARNESS INSTALLER) [facility] During your visit today, we recorded the following information about you: Temperature Blood pressure Weight 99 degrees 110/68 131.6 kg Kayla Bernstein APRN.CNP 04/02/2018 10:37 AM Signed SUBJECTIVE: Hang Gutierrez Derrick is a 77 year old male Patient presents with: Derm Problem: blisters on tips of fingers Edema: bilateral hands Patient presents with daughter, Addie for concerns about blisters on left fingers. Remains on lasix 80 mg once daily. Aldactone remains on hold per nephrology. Continues with frequent blood transfusions (last transfusion last week). Seeing Dr. Cerrato (GI) for f/u to discuss repeat colonoscopy and EGD. CURRENT MEDICATIONS: Current Outpatient Prescriptions on File Prior to Visit: simvastatin (ZOCOR) 20 mg tablet Take 1 tablet by mouth once daily. levothyroxine (SYNTHROID) 25 mcg tablet Take 1 tablet by mouth once daily. pantoprazole DR (PROTONIX) 40 mg tablet Take 1 tablet by mouth twice daily. 30 minutes before eating. multivit-min/FA/lycopen/lutein (CENTRUM SILVER MEN ORAL) Take 1 tablet by mouth once daily. lancets (FREESTYLE LANCETS) 28 gauge misc Test blood glucose 4 times daily Insulin [place], Disposable, (BD ULTRAFINE III MINI PEN) 31 gauge x 3/16 ndle USE WITH INSULIN PENS 4 TIMES DAILY FREESTYLE LITE STRIPS test strip Test blood glucose 4 times daily insulin glargine (LANTUS SOLOSTAR, BASAGLAR KWIKPEN) 100 unit/mL (3 mL) inpn Inject 25 Units subcutaneously twice daily. darbepoetin janene in albumn violet (ARANESP INJECTION) by INJECTION(UNSPECIFIED PARENTERAL ROUTES) route as needed. sucralfate (CARAFATE) 1 gram tablet Take 1 tablet by mouth four times daily. insulin lispro (HUMALOG KWIKPEN) 100 unit/mL pen 12 u with breakfast, 22 u with lunch, 15 u with dinner plus 2 u per 50 > 150 TDD 90 units ferrous sulfate 325 mg (65 mg iron) tablet Take 1 tablet by mouth daily with breakfast. metoprolol tartrate, short acting, (LOPRESSOR) 25 mg tablet Take 1 tablet by mouth twice daily. PSYLLIUM HUSK (METAMUCIL ORAL) Take by mouth once daily. loratadine (CLARITIN) 10 mg tablet Take 10 mg by mouth once daily. as needed aspirin, enteric coated (ASPIRIN, ENTERIC COATED) 81 mg EC tablet Take 81 mg by mouth once daily. as needed desoximetasone (TOPICORT) 0.25 % cream Apply thin layer twice daily Methylcellulose, Laxative, (FIBER THERAPY) 500 mg tab Take 500 mg by mouth DAILY. miconazole (LOTRIMIN AF, DESENEX) 2 % powder Apply 1 application to affected area twice daily. meclizine (ANTIVERT) 25 mg tab Take 1 tablet by mouth three times daily as needed. lactulose (ENULOSE) 10 gram/15 mL solution Take 30 mL by mouth once daily. rifaximin (XIFAXAN) 550 mg tab Take 1 tablet by mouth twice daily. No current facility-administered medications on file prior to visit. 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 REVIEW OF SYSTEMS:GENERAL: No weight loss, malaise or fevers CARDIOVASCULAR: Hypertension, GI: No nausea, vomiting, or diarrhea, no hematochezia, no constipation SKIN: See HPI BP 110/68 Temp 37.2 ?C (99 ?F) (Tympanic) Wt 131.6 kg (290 lb 3.2 oz) BMI 44.12 kg/m? General Appearance: Well appearing, alert, in no acute distress, well-hydrated, well nourished. and Obese Neck: supple, FROM, no adenopathy, no masses Lungs: clear to auscultation, no wheezing or rhonchi Heart: NSR, Murmur 4/6 (aortic stenosis) Extremities: Edema: +1 bilateral ankles Skin: left index and middle finger with single large blister at distal palmar aspect respectively. No surrounding edema or erythema, no other rash or vesicles. Left hand is mildly edematous ASSESSMENT/PLAN: 1. Localized edema - ICD9: 782.3, ICD10: R60.[address] Meehan- will trial compression wrap to left hand and forearm, will continue to monitor left hand f/u with hematology, nephrology, and GI as scheduled for chronic persistent anemia, CKD - will follow with those specialists Kayla Bernstein APRN.ENVELOPE STAMPING MACHINE OPERATOR Referring Provider: SELF [200] Allergies As of Date: 04/01/2018 (No Known Allergies) Date Reviewed: 04/01/2018 Reviewed by: Roberta Melendez (Rn) ANAND Gerber - Fully Assessed Reason for Visit: Derm Problem [33] Cmt: blisters on tips of fingers Edema [39] Cmt: bilateral hands Primary Visit Diagnosis:Localized edema [R60.0] Order(s):furosemide (LASIX) 40 mg tabletTake 2 tablets by mouth once daily.Disp: Rfl: Prescriptions as of 04/01/2018 Sig: SIMVASTATIN 20 MG TABLET Take 1 tablet by mouth once d* FUROSEMIDE 40 MG TABLET Take 2 tablets by mouth once * LEVOTHYROXINE 25 MCG TABLET Take 1 tablet by mouth once d* PANTOPRAZOLE 40 MG TABLET,DEL* Take 1 tablet by mouth twice * CENTRUM SILVER MEN ORAL Take 1 tablet by mouth once d* LANCETS 28 GAUGE Test blood glucose 4 times da* PEN NEEDLE, DIABETIC 31 GAUGE* USE WITH INSULIN PENS 4 TIMES* FREESTYLE LITE STRIPS Test blood glucose 4 times da* INSULIN GLARGINE (U-100) 100 * Inject 25 Units subcutaneousl* ARANESP INJECTION by INJECTION(UNSPECIFIED PARE* SUCRALFATE 1 GRAM TABLET Take 1 tablet by mouth four t* INSULIN LISPRO 100 UNIT/ML JAIMES* 12 u with breakfast, 22 u wit* FERROUS SULFATE 325 MG (65 MG* Take 1 tablet by mouth daily * METOPROLOL TARTRATE 25 MG TAB* Take 1 tablet by mouth twice * METAMUCIL ORAL Take by mouth once daily. LORATADINE 10 MG TABLET Take 10 mg by mouth once lilian* ASPIRIN 81 MG TABLET,DELAYED * Take 81 mg by mouth once lilian* DESOXIMETASONE 0.25 % TOPICAL* Apply thin layer twice daily METHYLCELLULOSE (LAXATIVE) 50* Take 500 mg by mouth DAILY. MICONAZOLE NITRATE 2 % TOPICA* Apply 1 application to affect* MECLIZINE 25 MG TABLET Take 1 tablet by mouth three * LACTULOSE 10 GRAM/15 ML ORAL * Take 30 mL by mouth once lilian* RIFAXIMIN 550 MG TABLET Take 1 tablet by mouth twice * Medication notes this encounter FUROSEMIDE 40 MG TABLET >> Roberta Gerber, RN, RN 04/01/2018 11:12 AM >> ROBERTA GERBER FriApr 01, 2018 11:12 AM Taking 80mg daily Problem List As Of Date 04/01/2018 Noted Resolved Viral gastroenteritis [A08.4] INVALID FOR*09/06/2014 Dehydration [E86.0] INVALID FOR*09/06/2014 Hypothyroidism [E03.9] GERD (gastroesophageal reflux disease) [K21.9] Renal disorder [N28.9] More... 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 History of colonic polyps [Z86.010] INVALID FOR* More... Morbid obesity (HCC) [E66.01] INVALID FOR* Anemia, chronic renal failure, stage 3 (moderat*INVALID FOR* Acute pancreatitis [K85.90] INVALID FOR*12/23/2017 Obesity, Class III, BMI >= 40 E66.01 [E66.01] INVALID FOR* Anemia [D64.9] INVALID FOR*12/23/2017 History of transfusion [Z92.89] INVALID FOR* More... Prescriptions ordered this encounter Disp Refills Start End FUROSEMIDE 40 MG TABLET 04/01/2018 Class: Med Update Route: ORAL Sig: Take 2 tablets by mouth once daily. Medications Discontinued During This Encounter furosemide (LASIX) 40 mg tablet 11/23/2016 04/01/2018 Class: Historical Med Route: ORAL Sig: Take 80 mg by mouth every 48 hours. Disc: Reason for discontinue is not on file. Encounter Status:Closed by KAYLA BERNSTEIN CNP on 04/02/18 BASIC METABOLIC Collected: 03/24/2018 Status: F Source: [place] PROFILE (BMP) 3:22 PM [facility] REPOSITORY TYPE CODE TESTS RESULT OUT OF RANGE REFERENCE UNITS LAB L501.0100 74-106 mg/dL High GLU 132 Result Comment: Fasting Glucose result greater than or equal to 126 mg/dL suggests DIABETES MELLITUS per A.D.A. criteria. Please note revised GLUCOSE reference range effective 2017. LAB L501.1000 7-18 mg/dL High BUN 33 LAB L501.1100 0.70-1.30 mg/dL High CREAT,SERUM 1.74 Result Comment: The validity of the calculated GFR AND GFRAA in patients over 70 years has not been determined. Clinical correlation is essential. LAB L501.1110 >60 mL/min Low EST GFR 40 Result Comment: Non- GFR Calc LAB L501.1115 >60 mL/min Low EST GFR - AA 49 Result Comment: GFR Calc LAB L501.1300 10-20 RATIO Normal BUN/CRE 19.0 LAB L501.2200 8.5-10.1 mg/dL Low CA 8.4 LAB L501.5300 136-145 mmol/L High NA 146 LAB L501.5600 3.5-5.1 mmol/L K Normal 3.9 LAB L501.5900 98-107 mmol/L High CL 109 LAB L501.6100 21.0-32.0 mmol/L Normal CO2 28.0 LAB L501.6200 5-15 Normal GAP 9 Performed By: #### L500.2500 #### [facility] [address] [facility] [place], [address] ALBUMIN/CREAT RATIO Collected: 03/24/2018 Status: F Source: [place] 3:15 PM [facility] REPOSITORY TYPE CODE TESTS RESULT OUT OF REFERENCE UNITS RANGE LAB UCRR 20-300 mg/dL 116.5 Creatinine,Ur ine,Ran LAB UALBR 0.0-23.0 mg/L <12.0 Albumin Urine Random LAB UALBCR 0-30 mg/g Not Albumin/Creat calculated Ratio Performed By: #### UACR #### [facility] [address] [place], [place] [address] [place] HEMATOCRIT Collected: 03/24/2018 Status: F Source: [place] 2:34 PM [facility] REPOSITORY TYPE CODE TESTS RESULT OUT OF REFERENCE UNITS RANGE LAB WHCT 39.0-51.0 % Low [place] Hematocrit 24.6 Result Comment: Test performed at: [address] [place] [address]. [place] HEMOGLOBIN Collected: 03/24/2018 Status: F Source: [place] 2:34 PM [facility] REPOSITORY TYPE CODE TESTS RESULT OUT OF REFERENCE UNITS RANGE LAB WHGB 13.0-17.0 g/dL Low [place] Hemoglobin 7.4 Result Comment: Test performed at: [address] [place] [address]. HEMOGLOBIN A1C Collected: 03/24/2018 Status: F Source: [place] 2:34 PM [facility] REPOSITORY TYPE CODE TESTS RESULT OUT OF REFERENCE UNITS RANGE LAB HGBA1C 4.3-5.6 % High Hemoglobin A1c 5.8 LAB HBA0 mg/dL Est. Average Glucose 120 Result Comment: eAG: (Estimated average glucose) is a calculated value from HgbA1c and is business services representative of the average blood glucose level in the last 2-3 month period. Performed By: #### HBA1C #### [facility] [address] [place], [place] [address] TYPE AND SCREEN Collected: 03/24/2018 Status: P Source: [place] 2:22 PM [facility] REPOSITORY Order Comment: PRETRANSFUSION HGB = 7.4 [facility] CMV NEG?* N Give When? 03/25/18 @0800 Irradiated? N Leukodepleted? Y Reason for Type AND Screen/Red Cells: ANEMIA TYPE CODE TESTS RESULT OUT OF RANGE REFERENCE UNITS LAB B10.0800 A Normal BLOOD TYPE GEL POSITIVE LAB B100.4000 Normal Antibody NEGATIVE Screen Performed By: #### B101.7450 #### [facility] [address] [place], [address] TYPE AND SCREEN Collected: 03/24/2018 Status: F Source: [place] 2:22 PM [facility] REPOSITORY Order Comment: PRETRANSFUSION HGB = 7.4 HCT [facility] CMV NEG?* N Give When? 03/25/18 @0800 Irradiated? N Leukodepleted? Y Reason for Type AND Screen/Red Cells: ANEMIA TYPE CODE TESTS RESULT OUT OF RANGE REFERENCE UNITS LAB B10.0800 A Normal BLOOD TYPE GEL POSITIVE LAB B100.4000 Normal Antibody NEGATIVE Screen Performed By: #### B101.7450 #### [facility] [address] [facility] [place], [address] RC Collected: 03/24/2018 Status: F Source: [place] 2:22 PM [facility] REPOSITORY TYPE CODE TESTS RESULT OUT OF REFERENCE UNITS RANGE LAB U100.0000 [id number] TRANSFUSED PRODUCT: T AND S with Crossmatch, Red Cells COUNT: 2 Performed By: #### U100.0000 #### [facility] - refer to report for specific site CNPTOUTREACH Observed: 03/24/2018 Status: COMPLETED Source: [place] 12:00 AM [facility] REPOSITORY Patient Outreach ([facility]) DERRICKHANG SAXENA ([id number]) 1940 M Date Time Provider Department 03/24/18 KAYLA BERNSTEIN [facility] During your visit today, we recorded the following information about you: Allergies As of Date: 03/24/2018 (No Known Allergies) Date Reviewed: 03/02/2018 Reviewed by: Mago Rebolledo Ma - Fully Assessed Visit Diagnosis:Medication management [Z79.899] Order(s):ALBUMIN/CREAT RATIO RND UR [SQUACR] Order #: [id number] FUTURE HGB A1C [RUTRX1W] Order #: [id number] FUTURE Prescriptions as of 03/24/2018 Sig: LEVOTHYROXINE 25 MCG TABLET Take 1 tablet by mouth once d* X PANTOPRAZOLE 40 MG TABLET,DEL* Take 1 tablet by mouth twice * CENTRUM SILVER MEN ORAL Take 1 tablet by mouth once d* LANCETS 28 GAUGE Test blood glucose 4 times da* PEN NEEDLE, DIABETIC 31 GAUGE* USE WITH INSULIN PENS 4 TIMES* X FREESTYLE LITE STRIPS Test blood glucose 4 times da* INSULIN GLARGINE (U-100) 100 * Inject 25 Units subcutaneousl* ARANESP INJECTION by INJECTION(UNSPECIFIED PARE* X FUROSEMIDE 40 MG TABLET Take 80 mg by mouth every 48 * X SIMVASTATIN 20 MG TABLET Take 1 tablet by mouth once d* X SUCRALFATE 1 GRAM TABLET Take 1 tablet by mouth four t* X INSULIN LISPRO 100 UNIT/ML JAIMES* 12 u with breakfast, 22 u wit* X FERROUS SULFATE 325 MG (65 MG* Take 1 tablet by mouth daily * METOPROLOL TARTRATE 25 MG TAB* Take 1 tablet by mouth twice * METAMUCIL ORAL Take by mouth once daily. LORATADINE 10 MG TABLET Take 10 mg by mouth once lilian* X ASPIRIN 81 MG TABLET,DELAYED * Take 81 mg by mouth once lilian* DESOXIMETASONE 0.25 % TOPICAL* Apply thin layer twice daily METHYLCELLULOSE (LAXATIVE) 50* Take 500 mg by mouth DAILY. X MICONAZOLE NITRATE 2 % TOPICA* Apply 1 application to affect* MECLIZINE 25 MG TABLET Take 1 tablet by mouth three * RIFAXIMIN 550 MG TABLET Take 1 tablet by mouth twice * X LACTULOSE 10 GRAM/15 ML ORAL * Take 30 mL by mouth once lilian* Problem List As Of Date 03/24/2018 Noted Resolved Viral gastroenteritis [A08.4] INVALID FOR*09/06/2014 Dehydration [E86.0] INVALID FOR*09/06/2014 Hypothyroidism [E03.9] GERD (gastroesophageal reflux disease) [K21.9] Renal disorder [N28.9] More... 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 History of colonic polyps [Z86.010] INVALID FOR* More... Morbid obesity (HCC) [E66.01] INVALID FOR* Anemia, chronic renal failure, stage 3 (moderat*INVALID FOR* Acute pancreatitis [K85.90] INVALID FOR*12/23/2017 Obesity, Class III, BMI >= 40 E66.01 [E66.01] INVALID FOR* Anemia [D64.9] INVALID FOR*12/23/2017 History of transfusion [Z92.89] INVALID FOR* More... Encounter Status:Closed by Rated People, VehconUSER on 06/05/18 [place] HEMATOCRIT Collected: 03/10/2018 Status: F Source: [place] 2:30 PM [facility] REPOSITORY TYPE CODE TESTS RESULT OUT OF REFERENCE UNITS RANGE LAB WHCT 39.0-51.0 % Low [place] Hematocrit 25.9 Result Comment: Test performed at: [facility], [address] [place] [address] [address] [place] [address]. [place] HEMOGLOBIN Collected: 03/10/2018 Status: F Source: [place] 2:30 PM [facility] REPOSITORY TYPE CODE TESTS RESULT OUT OF REFERENCE UNITS RANGE LAB WHGB 13.0-17.0 g/dL Low [place] Hemoglobin 8.0 Result Comment: Test performed at: [facility] [place], [address] [place] [address]. TYPE AND SCREEN Collected: 03/10/2018 Status: F Source: [place] 2:24 PM [facility] REPOSITORY Order Comment: CMV NEG?* N Give When? 03/11/18 AT 0800 Irradiated? N Leukodepleted? Y Reason for Type AND Screen/Red Cells: ANEMIA TYPE CODE TESTS RESULT OUT OF RANGE REFERENCE UNITS LAB B10.0800 A Normal BLOOD TYPE GEL POSITIVE LAB B100.4000 Normal Antibody NEGATIVE Screen Performed By: #### B101.7450 #### [facility] [address] [place], [address] Collected: 03/10/2018 Status: F Source: [place] 2:24 PM [facility] REPOSITORY TYPE CODE TESTS RESULT OUT OF REFERENCE UNITS RANGE LAB U100.0000 [id number] TRANSFUSED PRODUCT: T AND S with Crossmatch, Red Cells COUNT: 2 Performed By: #### U100.0000 #### [facility] - refer to report for specific site PROGRESS Observed: 03/05/2018 Status: COMPLETED Source: [place] 5:22 AM [facility] REPOSITORY HNO ID: [id number] Author: Kayla (Naila) Day Service: (none) Author Type: Nurse Practitioner Type: Progress Notes Filed: 03/05/2018 5:36 AM Note Text: SUBJECTIVE: Hang Meza is a 77 year old male Patient presents with: Hand Pain: left hand painful and swelling Edema: bilateral leg, more right Patient presents with daughter, Addie for concerns about swelling in left hand and bilateral feet. Noted swelling in left hand about 4-5 days ago- worse in 3rd and 4th fingers. Swelling in feet noted in past two days. Recent injection (aranesp). Denies pain or swelling with injection or after blood transfusion. Previously on lasix 80 mg daily every other day and aldactone 50 mg - Lasix was changed to 40 mg every other day and aldactone was stopped on 02/[address] Ball (nephrology) due to hyperkalemia and worsening CR. Now 12 # weight gain noted since 02/04/18 CURRENT MEDICATIONS: Current Outpatient Prescriptions on File Prior to Visit: multivit-min/FA/lycopen/lutein (CENTRUM SILVER MEN ORAL) Take 1 tablet by mouth once daily. lancets (FREESTYLE LANCETS) 28 gauge misc Test blood glucose 4 times daily Insulin [place], Disposable, (BD ULTRAFINE III MINI PEN) 31 gauge x 3/16 ndle USE WITH INSULIN PENS 4 TIMES DAILY FREESTYLE LITE STRIPS test strip Test blood glucose 4 times daily insulin glargine (LANTUS SOLOSTAR, BASAGLAR KWIKPEN) 100 unit/mL (3 mL) inpn Inject 25 Units subcutaneously twice daily. darbepoetin janene in albumn violet (ARANESP INJECTION) by INJECTION(UNSPECIFIED PARENTERAL ROUTES) route as needed. pantoprazole DR (PROTONIX) 40 mg tablet Take 1 tablet by mouth twice daily. 30 minutes before eating. simvastatin (ZOCOR) 20 mg tablet Take 1 tablet by mouth once daily. sucralfate (CARAFATE) 1 gram tablet Take 1 tablet by mouth four times daily. insulin lispro (HUMALOG KWIKPEN) 100 unit/mL pen 12 u with breakfast, 22 u with lunch, 15 u with dinner plus 2 u per 50 > 150 TDD 90 units ferrous sulfate 325 mg (65 mg iron) tablet Take 1 tablet by mouth daily with breakfast. levothyroxine (SYNTHROID) 25 mcg tablet Take 1 tablet by mouth once daily. metoprolol tartrate, short acting, (LOPRESSOR) 25 mg tablet Take 1 tablet by mouth twice daily. PSYLLIUM HUSK (METAMUCIL ORAL) Take by mouth once daily. loratadine (CLARITIN) 10 mg tablet Take 10 mg by mouth once daily. as needed aspirin, enteric coated (ASPIRIN, ENTERIC COATED) 81 mg EC tablet Take 81 mg by mouth once daily. as needed desoximetasone (TOPICORT) 0.25 % cream Apply thin layer twice daily Methylcellulose, Laxative, (FIBER THERAPY) 500 mg tab Take 500 mg by mouth DAILY. miconazole (LOTRIMIN AF, DESENEX) 2 % powder Apply 1 application to affected area twice daily. meclizine (ANTIVERT) 25 mg tab Take 1 tablet by mouth three times daily as needed. lactulose (ENULOSE) 10 gram/15 mL solution Take 30 mL by mouth once daily. rifaximin (XIFAXAN) 550 mg tab Take 1 tablet by mouth twice daily. furosemide (LASIX) 40 mg tablet Take 80 mg by mouth every 48 hours. No current facility-administered medications on file prior to visit. 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 REVIEW OF SYSTEMS:GENERAL: No weight loss, malaise or fevers NECK: Negative for lumps, goiter, pain and significant neck swelling RESPIRATORY: Negative for cough, hemoptysis, wheezing, COPD, dyspnea or shortness of breath, denies orthopnea CARDIOVASCULAR: Hypertension, denies chest pain or palpitations GI: No nausea, vomiting, or diarrhea MUSCULOSKELETAL: Negative for joint pain or swelling, back pain or muscle pain HEMATOLOGY/LYMPHOLOGY following with GI and hematology, denies hematochezia BP 110/72 (BP Site: Right Arm, BP Position: Sitting, BP Cuff Size: Large Adult) Temp 36.6 ?C (97.8 ?F) (Left Tympanic) Wt 132.5 kg (292 lb) BMI 44.40 kg/m? General Appearance: Well appearing, alert, in no acute distress, well-hydrated, well nourished., Obese Neck: supple, FROM, no adenopathy, no masses Lungs: clear to auscultation, no wheezing or rhonchi Heart: NSR, + murmur (history of aortic stenosis) Extremities: Edema: Bilateral hands with edema - worse in left hand, no redness or increased warmth, +2 edema bilateral LE's. ASSESSMENT/PLAN: 1. Bilateral leg edema - ICD9: 782.3, ICD10: R60.0 (primary diagnosis) Contacted Dr. Ball for recommendations - ok to start Lasix 40 mg once daily, Dr. Ball to review BMP tomorrow and make additional recommendations. Daughter, Addie - voiced understanding. - BASIC METABOLIC PNL 2. Essential hypertension - ICD9: 401.9, ICD10: I10 - good control - Continue current medication(s) - Goal of BP <130/80 3. Anemia of chronic illness - ICD9: 285.29, ICD10: D63.8 Following with GI and hematology for recent positive stool guiac. 4. CKD (chronic kidney disease) stage 3, GFR 30-59 ml/min ([facility]) - ICD9: 585.3, ICD10: N18.3 Recent worsening control - will recheck today. - BASIC METABOLIC PNL Kayla Bernstein APRN.ENVELOPE STAMPING MACHINE OPERATOR BASIC METABOLIC PANL Collected: 03/02/2018 Status: F Source: [place] 11:00 PM [facility] REPOSITORY TYPE CODE TESTS RESULT OUT OF REFERENCE UNITS RANGE LAB GLU 74-99 mg/dL High Glucose 136 Result Comment: The [place] [employer] (ADA) provides guidance for cutoff values for fasting glucose and random glucose. The ADA defines fasting as no caloric intake for at least 8 hours. Fas ting plasma glucose results between 100 to 125 mg/dL indicate increased risk for diabetes (prediabetes). Fasting plasma glucose results greater than or equal to 126 mg/dL meet the criteria for diagnosis of diabetes. In the absence of unequivocal hyperglycemia, results should be confirmed by repeat testing. In a patient with classic symptoms of hyperglycemia or hyperglycemic crisis, random plasma glucose results greater than or equal to 200 mg/dL meet the criteria for diagnosis of diabetes. Reference: Standards of Medical Care in Diabetes 2016, [place] [employer]. Diabetes Care. 2016.39(Suppl 1). LAB BUN 9-24 mg/dL BUN 20 LAB CRET 0.73-1.22 mg/dL Creatinine High 1.60 LAB NA 136-144 mmol/L Sodium 140 LAB K 3.7-5.1 mmol/L Potassium 4.5 LAB CL 97-105 mmol/L Chloride 100 LAB CO2 22-30 mmol/L CO2 29 LAB AGAP 9-18 mmol/L Anion Gap 11 LAB CA 8.5-10.2 mg/dL Low Calcium, Total 8.4 LAB GFRAA eGFR- Amer. 51 LAB GFRNAA . eGFR-All Other Races 42 Result Comment: eGFR (Estimated GFR) Units of measure: mL/min/1.73 meters squared eGFR is derived from the reexpressed MDRD Study equation using the following parameters: serum creatinine, age, gender and race. The creatinine assay has been calibrated to be traceable to IDMS. An eGFR <60 mL/min/1.73m2 for >3 months is consistent with chronic kidney disease. Refer to KDOQI guidelines for clinical interpretation. In patients with unstable renal function, e.g. those with acute kidney injury, the eGFR may not accurately reflect actual GFR. Performed By: #### BMP #### [facility] [address] [place], [place] [address] CNOV Observed: 03/02/2018 Status: COMPLETED Source: [place] 4:00 PM [facility] REPOSITORY Office Visit ([facility]) HANG MEZA ([id number]) 1940 M Date Time Provider Department 03/02/18 4:00 PM KAYLA BERNSTEIN (NAILA) [facility] During your visit today, we recorded the following information about you: Temperature Blood pressure Weight 97.8 degrees 110/72 132.5 kg Mago Rebolledo Ma 03/02/2018 5:18 PM Signed Hang Meza presents in office today for Lab Draw. Ordering Provider: Kayla Bernstein CNP Test (s) ordered: VIANCA (SMA7) Phlebotomy was performed, accessing left antecubital vein. Needle removed intact. Dressing secured. Patient denies discomfort, dizziness, light-headedness or weakness and left the department without assist. Mago Bernstein APRN.[place] 03/05/2018 5:36 AM Signed SUBJECTIVE: Hang Meza is a 77 year old male Patient presents with: Hand Pain: left hand painful and swelling Edema: bilateral leg, more right Patient presents with daughter, Addie for concerns about swelling in left hand and bilateral feet. Noted swelling in left hand about 4-5 days ago- worse in 3rd and 4th fingers. Swelling in feet noted in past two days. Recent injection (aranesp). Denies pain or swelling with injection or after blood transfusion. Previously on lasix 80 mg daily every other day and aldactone 50 mg - Lasix was changed to 40 mg every other day and aldactone was stopped on 02/[address] Ball (nephrology) due to hyperkalemia and worsening CR. Now 12 # weight gain noted since 02/04/18 CURRENT MEDICATIONS: Current Outpatient Prescriptions on File Prior to Visit: multivit-min/FA/lycopen/lutein (CENTRUM SILVER MEN ORAL) Take 1 tablet by mouth once daily. lancets (FREESTYLE LANCETS) 28 gauge misc Test blood glucose 4 times daily Insulin [place], Disposable, (BD ULTRAFINE III MINI PEN) 31 gauge x 3/16 ndle USE WITH INSULIN PENS 4 TIMES DAILY FREESTYLE LITE STRIPS test strip Test blood glucose 4 times daily insulin glargine (LANTUS SOLOSTAR, BASAGLAR KWIKPEN) 100 unit/mL (3 mL) inpn Inject 25 Units subcutaneously twice daily. darbepoetin janene in albumn violet (ARANESP INJECTION) by INJECTION(UNSPECIFIED PARENTERAL ROUTES) route as needed. pantoprazole DR (PROTONIX) 40 mg tablet Take 1 tablet by mouth twice daily. 30 minutes before eating. simvastatin (ZOCOR) 20 mg tablet Take 1 tablet by mouth once daily. sucralfate (CARAFATE) 1 gram tablet Take 1 tablet by mouth four times daily. insulin lispro (HUMALOG KWIKPEN) 100 unit/mL pen 12 u with breakfast, 22 u with lunch, 15 u with dinner plus 2 u per 50 > 150 TDD 90 units ferrous sulfate 325 mg (65 mg iron) tablet Take 1 tablet by mouth daily with breakfast. levothyroxine (SYNTHROID) 25 mcg tablet Take 1 tablet by mouth once daily. metoprolol tartrate, short acting, (LOPRESSOR) 25 mg tablet Take 1 tablet by mouth twice daily. PSYLLIUM HUSK (METAMUCIL ORAL) Take by mouth once daily. loratadine (CLARITIN) 10 mg tablet Take 10 mg by mouth once daily. as needed aspirin, enteric coated (ASPIRIN, ENTERIC COATED) 81 mg EC tablet Take 81 mg by mouth once daily. as needed desoximetasone (TOPICORT) 0.25 % cream Apply thin layer twice daily Methylcellulose, Laxative, (FIBER THERAPY) 500 mg tab Take 500 mg by mouth DAILY. miconazole (LOTRIMIN AF, DESENEX) 2 % powder Apply 1 application to affected area twice daily. meclizine (ANTIVERT) 25 mg tab Take 1 tablet by mouth three times daily as needed. lactulose (ENULOSE) 10 gram/15 mL solution Take 30 mL by mouth once daily. rifaximin (XIFAXAN) 550 mg tab Take 1 tablet by mouth twice daily. furosemide (LASIX) 40 mg tablet Take 80 mg by mouth every 48 hours. No current facility-administered medications on file prior to visit. 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 REVIEW OF SYSTEMS:GENERAL: No weight loss, malaise or fevers NECK: Negative for lumps, goiter, pain and significant neck swelling RESPIRATORY: Negative for cough, hemoptysis, wheezing, COPD, dyspnea or shortness of breath, denies orthopnea CARDIOVASCULAR: Hypertension, denies chest pain or palpitations GI: No nausea, vomiting, or diarrhea MUSCULOSKELETAL: Negative for joint pain or swelling, back pain or muscle pain HEMATOLOGY/LYMPHOLOGY following with GI and hematology, denies hematochezia BP 110/72 (BP Site: Right Arm, BP Position: Sitting, BP Cuff Size: Large Adult) Temp 36.6 ?C (97.8 ?F) (Left Tympanic) Wt 132.5 kg (292 lb) BMI 44.40 kg/m? General Appearance: Well appearing, alert, in no acute distress, well-hydrated, well nourished., Obese Neck: supple, FROM, no adenopathy, no masses Lungs: clear to auscultation, no wheezing or rhonchi Heart: NSR, + murmur (history of aortic stenosis) Extremities: Edema: Bilateral hands with edema - worse in left hand, no redness or increased warmth, +2 edema bilateral LE's. ASSESSMENT/PLAN: 1. Bilateral leg edema - ICD9: 782.3, ICD10: R60.0 (primary diagnosis) Contacted Dr. Ball for recommendations - ok to start Lasix 40 mg once daily, Dr. Ball to review BMP tomorrow and make additional recommendations. DaughterAddie - voiced understanding. - BASIC METABOLIC PNL 2. Essential hypertension - ICD9: 401.9, ICD10: I10 - good control - Continue current medication(s) - Goal of BP <130/80 3. Anemia of chronic illness - ICD9: 285.29, ICD10: D63.8 Following with GI and hematology for recent positive stool guiac. 4. CKD (chronic kidney disease) stage 3, GFR 30-59 ml/min (HCC) - ICD9: 585.3, ICD10: N18.3 Recent worsening control - will recheck today. - BASIC METABOLIC PNL Kayla Bersntein APRN.ENVELOPE STAMPING MACHINE OPERATOR Referring Provider: KAYLA BERNSTEIN (HARNESS INSTALLER) [[id number]] Allergies As of Date: 03/02/2018 (No Known Allergies) Date Reviewed: 03/02/2018 Reviewed by: Mago Rebolledo Ma - Fully Assessed Reason for Visit: Hand Pain [1581] Cmt: left hand painful and swelling Edema [39] Cmt: bilateral leg, more right Primary Visit Diagnosis:Bilateral leg edema [R60.0] Other Visit Diagnoses:Essential hypertension [I10] Anemia of chronic illness [D63.8] CKD (chronic kidney disease) stage 3, GFR 30-59 ml/min (HCC) [N18.3] Order(s):BASIC METABOLIC PNL [SQBMP] Order #: [id number] FUTURE BASIC METABOLIC PNL [SQBMP] Order #: [id number]. #:[id number] Prescriptions as of 03/02/2018 Sig: CENTRUM SILVER MEN ORAL Take 1 tablet by mouth once d* LANCETS 28 GAUGE Test blood glucose 4 times da* PEN NEEDLE, DIABETIC 31 GAUGE* USE WITH INSULIN PENS 4 TIMES* FREESTYLE LITE STRIPS Test blood glucose 4 times da* INSULIN GLARGINE (U-100) 100 * Inject 25 Units subcutaneousl* ARANESP INJECTION by INJECTION(UNSPECIFIED PARE* PANTOPRAZOLE 40 MG TABLET,DEL* Take 1 tablet by mouth twice * SIMVASTATIN 20 MG TABLET Take 1 tablet by mouth once d* SUCRALFATE 1 GRAM TABLET Take 1 tablet by mouth four t* INSULIN LISPRO 100 UNIT/ML JAIMES* 12 u with breakfast, 22 u wit* FERROUS SULFATE 325 MG (65 MG* Take 1 tablet by mouth daily * LEVOTHYROXINE 25 MCG TABLET Take 1 tablet by mouth once d* METOPROLOL TARTRATE 25 MG TAB* Take 1 tablet by mouth twice * METAMUCIL ORAL Take by mouth once daily. LORATADINE 10 MG TABLET Take 10 mg by mouth once lilian* ASPIRIN 81 MG TABLET,DELAYED * Take 81 mg by mouth once lilian* DESOXIMETASONE 0.25 % TOPICAL* Apply thin layer twice daily METHYLCELLULOSE (LAXATIVE) 50* Take 500 mg by mouth DAILY. MICONAZOLE NITRATE 2 % TOPICA* Apply 1 application to affect* MECLIZINE 25 MG TABLET Take 1 tablet by mouth three * LACTULOSE 10 GRAM/15 ML ORAL * Take 30 mL by mouth once lilian* RIFAXIMIN 550 MG TABLET Take 1 tablet by mouth twice * FUROSEMIDE 40 MG TABLET Take 80 mg by mouth every 48 * Problem List As Of Date 03/02/2018 Noted Resolved Viral gastroenteritis [A08.4] INVALID FOR*09/06/2014 Dehydration [E86.0] INVALID FOR*09/06/2014 Hypothyroidism [E03.9] GERD (gastroesophageal reflux disease) [K21.9] Renal disorder [N28.9] More... 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 History of colonic polyps [Z86.010] INVALID FOR* More... Morbid obesity (HCC) [E66.01] INVALID FOR* Anemia, chronic renal failure, stage 3 (moderat*INVALID FOR* Acute pancreatitis [K85.90] INVALID FOR*12/23/2017 Obesity, Class III, BMI >= 40 E66.01 [E66.01] INVALID FOR* Anemia [D64.9] INVALID FOR*12/23/2017 History of transfusion [Z92.89] INVALID FOR* More... Visit Notes: >> Mago Rebolledo Ma Mon Mar 02, 2018 5:18 PM Status: Signed Hang Meza presents in office today for Lab Draw. Ordering Provider: Kayla Bernstein CNP Test (s) ordered: BMP (SMA7) Phlebotomy was performed, accessing left antecubital vein. Needle removed intact. Dressing secured. Patient denies discomfort, dizziness, light-headedness or weakness and left the department without assist. Mago Rebolledo Ma Medications Discontinued During This Encounter spironolactone (ALDACTONE) 50 mg tab* 10/29/2017 03/02/2018 Class: Med Update Route: ORAL Sig: Take 1 tablet by mouth once daily. Disc: Reason for discontinue is not on file. Encounter Status:Closed by KAYLA BERNSTEIN CNP on 03/05/18 PROTIME Collected: 02/24/2018 Status: F Source: [place] 2:26 PM [facility] [place] REPOSITORY TYPE CODE TESTS RESULT OUT OF RANGE REFERENCE UNITS LAB PSEC 9.7-13.0 sec PT Sec 12.1 LAB INR 0.9-1.3 PT INR 1.2 Result Comment: Vitamin K Antagonist (VKA) Therapeutic Range: INR 2 to 3 (Target INR of 2.5) Note: For patients treated with VKA drugs, such as warfarin, the [place] [employer] 2012 Guideline recommends a therapeutic INR range of 2 to 3 (target INR of 2.5). This recommendation includes high-risk patients with antiphospholipid syndrome with previous arterial or venous thromboembolism, current-generation mechanical or bioprosthetic aortic heart valve replacement. Note: Patients with mechanical aortic valve replacement and additional risk factors for thromboembolic events (atrial fibrillation, previous thromboembolism, LV dysfunction, hypercoagulable conditions) or an older generation mechanical AVR (i.e., ball in-Cage) or any mechanical MVR should have a INR therapeutic range of 2.5 to 3.5 (target INR of 3). Nava GH, et al. Chest 2012, 141:7S-47S Venessa RA, et al. [facility] 2017, 70: 252-289 Performed By: #### PT #### [facility] [address] [place], [place] [address] RENITA ABS GR + CBC Collected: 02/24/2018 Status: F Source: [place] 2:25 PM [facility] [place] REPOSITORY TYPE CODE TESTS RESULT OUT OF REFERENCE UNITS RANGE LAB WWBC 3.70-11.00 k/uL [place] WBC 4.61 LAB WRBC 4.20-6.00 m/uL Low [place] RBC 2.85 LAB WHGB 13.0-17.0 g/dL Low [place] Hemoglobin 9.6 LAB WHCT 39.0-51.0 % Low [place] Hematocrit 30.7 LAB WMCV 80.0-100.0 fL [place] High MCV 107.7 LAB WMCH 26.0-34.0 pg [place] MCH 33.7 LAB WMCHC 30.5-36.0 g/dL [place] MCHC 31.3 LAB WRDW 11.5-15.0 % [place] High RDW 20.0 LAB WPLT 150-400 k/uL Low [place] Platelet Cnt 75 LAB WMPV 9.0-12.7 fL [place] MPV 12.2 Result Comment: Test performed at: [facility], [address] [place] [address]. LAB ABGRAN 1.45-7.50 k/uL Absol Gran 2.89 Count TYPE AND SCREEN Collected: 02/19/2018 Status: F Source: [place] 9:20 AM [facility] REPOSITORY Order Comment: PRETRANSFUSION HGB = 8.2 [facility] CMV NEG?* N Give When? 02/20/18 @0830 Irradiated? N Leukodepleted? Y Reason for Type AND Screen/Red Cells: ANEMIA TYPE CODE TESTS RESULT OUT OF RANGE REFERENCE UNITS LAB B10.0800 A Normal BLOOD TYPE GEL POSITIVE LAB B100.4000 Normal Antibody NEGATIVE Screen Performed By: #### B101.7450 #### [facility] [address] [place], [place], [address] Collected: 02/19/2018 Status: F Source: [place] 9:20 AM [facility] REPOSITORY TYPE CODE TESTS RESULT OUT OF REFERENCE UNITS RANGE LAB U100.0000 [id number] TRANSFUSED PRODUCT: T AND S with Crossmatch, Red Cells COUNT: 2 Performed By: #### U100.0000 #### [facility] - refer to report for specific site RENITA HEMATOCRIT Collected: 02/19/2018 Status: F Source: [place] 9:20 AM [facility] REPOSITORY TYPE CODE TESTS RESULT OUT OF REFERENCE UNITS RANGE LAB WHCT 39.0-51.0 % Low [place] Hematocrit 26.3 Result Comment: Test performed at: [facility], [address] [place] [address]. RENITA HEMOGLOBIN Collected: 02/19/2018 Status: F Source: [place] 9:20 AM [facility] REPOSITORY TYPE CODE TESTS RESULT OUT OF REFERENCE UNITS RANGE LAB WHGB 13.0-17.0 g/dL Low [place] Hemoglobin 8.2 Result Comment: Test performed at: [facility], [address] [place] [address]., [place] [address]. PROGRESS Observed: 02/17/2018 Status: COMPLETED Source: [place] 12:54 PM [facility] REPOSITORY HNO ID: [id number] Author: Magdiel Lee Service: (none) Author Type: Physician Type: Progress Notes Filed: 02/17/2018 1:24 PM Note Text: ENDOCRINOLOGY SUBSPECIALTY FOLLOW UP Last seen: 11-11-2017 CC: Diabetes HPI: 77 year old morbidly obese male who first presented in follow up 07-23-2016 for T2DM that historically has been poorly controlled for at least the last year. - his daughter does the blood sugar testing but she is working two jobs and is also in school -- can not always be there; he does not have home health at this point in time . - the pt has poor manual dexterity and can give his own shots but does not test his blood sugars - daughter presents with blood sugar logs tho with scant testing before meals - the patient uses insulin pens but does not always change out the needle during the day -- he was counseled on same today ALSO PLEASE SEE PREVIOUS ENCOUNTERS IN THIS EMR . . . FOLLOW UP VISIT 11-11-2017: Took a hard fall in September - on a heart monitor at this point and is being worked up for anemia, renal, and cardiology issues per his daughter. He is severely anemic and being worked up for a bleed of unknown origin FOLLOW UP VISIT 02-17-2018: Here in routine follow up; noted to be anemic therefore A1c will not be done today - apparently due to polyps. Hospitalized in November for prostate issue; needed transfusions. He is being treated. Per the daughter's report, the bleeding has now stopped. Worsening renal function. Less snacking, smaller meals usually. SMBG Freestyle meter FBS 107 - 127 NOON 97 - 181 DINNER 104 - [address]: 146 REVIEW OF SYSTEMS GENERAL: Wt is down; very fatigued, sleeping a lot HEENT: up to date with eye exam, sclerosis was noted per the daughter NECK neg RESPIRATORY: dry cough CARDIOVASCULAR: murmur and notes SOB at times GI: occ nausea; no vomiting : neg MUSCULOSKELETAL: back is bothering him; dry spots on his feet SKIN: neg PSYCH: denies NEURO: decreased sensation in his feet - sees podiatry and special shoes are on order Remainder of ROS is negative MEDS Current Outpatient Prescriptions on File Prior to Visit: FREESTYLE LITE STRIPS test strip Test blood glucose 4 times daily insulin glargine (LANTUS SOLOSTAR, BASAGLAR KWIKPEN) 100 unit/mL (3 mL) inpn Inject 25 Units subcutaneously twice daily. darbepoetin janene in albumn violet (ARANESP INJECTION) by INJECTION(UNSPECIFIED PARENTERAL ROUTES) route as needed. furosemide (LASIX) 40 mg tablet Take 80 mg by mouth every [address] (PROTONIX) 40 mg tablet Take 1 tablet by mouth twice daily. 30 minutes before eating. simvastatin (ZOCOR) 20 mg tablet Take 1 tablet by mouth once daily. sucralfate (CARAFATE) 1 gram tablet Take 1 tablet by mouth four times daily. insulin lispro (HUMALOG KWIKPEN) 100 unit/mL pen 12 u with breakfast, 22 u with lunch, 15 u with dinner plus 2 u per 50 > 150 TDD 90 units ferrous sulfate 325 mg (65 mg iron) tablet Take 1 tablet by mouth daily with breakfast. levothyroxine (SYNTHROID) 25 mcg tablet Take 1 tablet by mouth once daily. metoprolol tartrate, short acting, (LOPRESSOR) 25 mg tablet Take 1 tablet by mouth twice daily. PSYLLIUM HUSK (METAMUCIL ORAL) Take by mouth once daily. loratadine (CLARITIN) 10 mg tablet Take 10 mg by mouth once daily. as needed aspirin, enteric coated (ASPIRIN, ENTERIC COATED) 81 mg EC tablet Take 81 mg by mouth once daily. as needed desoximetasone (TOPICORT) 0.25 % cream Apply thin layer twice daily lancets (FREESTYLE LANCETS) 28 gauge misc Test blood glucose 4 times daily Insulin [place], Disposable, (BD ULTRAFINE III MINI PEN) 31 gauge x 3/16 ndle USE WITH INSULIN PENS 4 TIMES DAILY Methylcellulose, Laxative, (FIBER THERAPY) 500 mg tab Take 500 mg by mouth DAILY. miconazole (LOTRIMIN AF, DESENEX) 2 % powder Apply 1 application to affected area twice daily. meclizine (ANTIVERT) 25 mg tab Take 1 tablet by mouth three times daily as needed. lactulose (ENULOSE) 10 gram/15 mL solution Take 30 mL by mouth once daily. rifaximin (XIFAXAN) 550 mg tab Take 1 tablet by mouth twice daily. spironolactone (ALDACTONE) 50 mg tablet Take 1 tablet by mouth once daily. No current facility-administered medications on file prior to visit. 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 PAST SURGICAL HISTORY Procedure Laterality Date - COLONOSCOP W/ OR W/O BRSH SPEC 06/02/2017 2 year repeat/hard IV stick - COLONOSCOPY 2013 - EGD 2013, 08/08 - EGD W/O OR W/BRUSH/WASH 06/02/2017 EGD - KIDNEY SURGERY HX - PAST SURGICAL HISTORY OF 2013 umbilical hernia repair - PAST SURGICAL HISTORY OF prostate biopsy Social History Marital status: Spouse name: Years of education: Number of children: 5 Social History Main Topics Smoking status: Former Smoker Packs/day: 0.00 Years: 10.00 Types: Cigars Quit date: 11/07/2002 Smokeless tobacco: Never Used Alcohol use: No Drug use: No Sexual activity: Yes Partners with: Female FAMILY HISTORY Problem Relation Age of Onset - Heart Father MA - Prostate Cancer Father - Diabetes Mother - Breast Cancer Sister - Heart Brother - prescott [OTHER] Brother LABS - disregard A1c -- invalid in the presence of anemia Component Latest Ref Rng AND Units 12/23/2017 Protein, Total 6.3 - 8.0 g/dL 6.4 Albumin 3.9 - 4.9 g/dL 3.2 (L) Calcium 8.5 - 10.2 mg/dL 8.2 (L) Bilirubin, Total 0.2 - 1.3 mg/dL 1.8 (H) Alkaline Phosphatase 36 - 108 U/L 44 AST 14 - 40 U/L 25 Glucose 74 - 99 mg/dL 105 (H) BUN 9 - 24 mg/dL 23 Creatinine 0.73 - 1.22 mg/dL 1.77 (H) Sodium 136 - 144 mmol/L 137 Potassium 3.7 - 5.1 mmol/L 4.5 Chloride 97 - 105 mmol/L 102 CO2 22 - 30 mmol/L 24 Anion Gap 9 - 18 mmol/L 11 ALT 10 - 54 U/L 16 eGFR- 45 eGFR-All Other Races . 37 Component Latest Ref Rng AND Units 10/30/2017 WBC, [place] 3.70 - 11.00 k/uL 6.40 RBC, [place] 4.20 - 6.00 m/uL 2.07 (L) Hemoglobin, [place] 13.0 - 17.0 g/dL 7.0 (L) Hematocrit, [place] 39.0 - 51.0 % 23.4 (L) MCV, [place] 80.0 - 100.0 fL 113.0 (H) MCH, [place] 26.0 - 34.0 pg 33.8 MCHC, [place] 30.5 - 36.0 g/dL 29.9 (L) RDW, [place] 11.5 - 15.0 % 17.6 (H) Platelet Cnt, [place] 150 - 400 k/uL 97 (L) MPV, [place] 9.0 - 12.7 fL 12.8 (H) Absol Gran Count 1.45 - 7.50 k/uL 3.97 Absolute nRBC <0.01 k/uL Preliminary result. Interpret with caution. Final results may vary. Results . . . PHYSICAL EXAMINATION: General appearance: morbidly obese, clean, depressed / exhausted appearance; leach is trimmed, he is wearing clean clothing Skin: dry Head: normal Eyes: Anicteric sclera. Pupils are equally round and reactive to light. Extraocular movements are intact. Neck: Supple, no adenopathy; thyroid symmetric, normal size, no bruits Lungs: lungs clear to auscultation Heart: holosystolic blowing murmur Extremities: edema bilat LE, Good capillary refill. Musculoskeletal: Spine range of motion normal. Muscular strength: proximal weakness with difficulty arising from the exam room chair; now amb with a cane Peripheral pulses: Normal ASSESSMENT/PLAN: 1. Uncontrolled type 2 diabetes mellitus with complication, with long-term current use of insulin (HCC) - ICD9: 250.82, V58.67, ICD10: E11.8, E11.65, Z79.4 (primary diagnosis) - At goal per his home monitoring - no LBS -- average looks great - stop Glipizide today due to renal function and risk for severe LBS - Lantus 25 twice daily - morning and evening - Humalog plus 2 u per 50 > 150 2. HTN - controlled and at goal of < 140/90 - aldactone being held at this oint 3. HPL - controlled and at goal of LDL < 100 - statin and asa 4. Hypothyroid - clinically euthyroid at today's exam - continues to follow with PCP 5. Anemia - with recent transfusions - Do not do A1c - continues to be watched very closely Follow up in 3 months Patient is to continue to follow up with his PCP and with other consultants regarding his other medical problems. The patient has my card, and knows how to reach my office. I thank you for the opportunity to participate in the continued care of Hang Gutierrez Derrick. Please do not hesitate to contact me if you have further concerns or questions. Magdiel Lee, MS, RD, MD, CCD, FACN, FACP, FACE Diplomate, [place] [employer] Diplomate, National Board of Physician Nutrition Specialists Endocrinology / / PGR [id number] CNOV Observed: 02/17/2018 Status: COMPLETED Source: [place] 12:45 PM [facility] REPOSITORY Office Visit (BRIAN) HANG MEZA ([id number]) 1940 M Date Time Provider Department 02/17/18 12:45 PM MAGDIEL LEE During your visit today, we recorded the following information about you: Pulse Blood pressure Weight Height 76/minute 124/60 130.2 kg 1.727 m Magdiel Lee MD 02/17/2018 1:24 PM Signed ENDOCRINOLOGY SUBSPECIALTY FOLLOW UP Last seen: 11-11-2017 CC: Diabetes HPI: 77 year old morbidly obese male who first presented in follow up 07-23-2016 for T2DM that historically has been poorly controlled for at least the last year. - his daughter does the blood sugar testing but she is working two jobs and is also in school -- can not always be there; he does not have home health at this point in time . - the pt has poor manual dexterity and can give his own shots but does not test his blood sugars - daughter presents with blood sugar logs th with scant testing before meals - the patient uses insulin pens but does not always change out the needle during the day -- he was counseled on same today ALSO PLEASE SEE PREVIOUS ENCOUNTERS IN THIS EMR . . . FOLLOW UP VISIT 11-11-2017: Took a hard fall in September - on a heart monitor at this point and is being worked up for anemia, renal, and cardiology issues per his daughter. He is severely anemic and being worked up for a bleed of unknown origin FOLLOW UP VISIT 02-17-2018: Here in routine follow up; noted to be anemic therefore A1c will not be done today - apparently due to polyps. Hospitalized in November for prostate issue; needed transfusions. He is being treated. Per the daughter's report, the bleeding has now stopped. Worsening renal function. Less snacking, smaller meals usually. SMBG Freestyle meter FBS 107 - 127 NOON 97 - 181 DINNER 104 - [address]: 146 REVIEW OF SYSTEMS GENERAL: Wt is down; very fatigued, sleeping a lot HEENT: up to date with eye exam, sclerosis was noted per the daughter NECK neg RESPIRATORY: dry cough CARDIOVASCULAR: murmur and notes SOB at times GI: occ nausea; no vomiting : neg MUSCULOSKELETAL: back is bothering him; dry spots on his feet SKIN: neg PSYCH: denies NEURO: decreased sensation in his feet - sees podiatry and special shoes are on order Remainder of ROS is negative MEDS Current Outpatient Prescriptions on File Prior to Visit: FREESTYLE LITE STRIPS test strip Test blood glucose 4 times daily insulin glargine (LANTUS SOLOSTAR, BASAGLAR KWIKPEN) 100 unit/mL (3 mL) inpn Inject 25 Units subcutaneously twice daily. darbepoetin janene in albumn violet (ARANESP INJECTION) by INJECTION(UNSPECIFIED PARENTERAL ROUTES) route as needed. furosemide (LASIX) 40 mg tablet Take 80 mg by mouth every [address] (PROTONIX) 40 mg tablet Take 1 tablet by mouth twice daily. 30 minutes before eating. simvastatin (ZOCOR) 20 mg tablet Take 1 tablet by mouth once daily. sucralfate (CARAFATE) 1 gram tablet Take 1 tablet by mouth four times daily. insulin lispro (HUMALOG KWIKPEN) 100 unit/mL pen 12 u with breakfast, 22 u with lunch, 15 u with dinner plus 2 u per 50 > 150 TDD 90 units ferrous sulfate 325 mg (65 mg iron) tablet Take 1 tablet by mouth daily with breakfast. levothyroxine (SYNTHROID) 25 mcg tablet Take 1 tablet by mouth once daily. metoprolol tartrate, short acting, (LOPRESSOR) 25 mg tablet Take 1 tablet by mouth twice daily. PSYLLIUM HUSK (METAMUCIL ORAL) Take by mouth once daily. loratadine (CLARITIN) 10 mg tablet Take 10 mg by mouth once daily. as needed aspirin, enteric coated (ASPIRIN, ENTERIC COATED) 81 mg EC tablet Take 81 mg by mouth once daily. as needed desoximetasone (TOPICORT) 0.25 % cream Apply thin layer twice daily lancets (FREESTYLE LANCETS) [facility] Test blood glucose 4 times daily Insulin [place], Disposable, (BD ULTRAFINE III MINI PEN) 31 gauge x 3/16 ndle USE WITH INSULIN PENS 4 TIMES DAILY Methylcellulose, Laxative, (FIBER THERAPY) 500 mg tab Take 500 mg by mouth DAILY. miconazole (LOTRIMIN AF, DESENEX) 2 % powder Apply 1 application to affected area twice daily. meclizine (ANTIVERT) 25 mg tab Take 1 tablet by mouth three times daily as needed. lactulose (ENULOSE) 10 gram/15 mL solution Take 30 mL by mouth once daily. rifaximin (XIFAXAN) 550 mg tab Take 1 tablet by mouth twice daily. spironolactone (ALDACTONE) 50 mg tablet Take 1 tablet by mouth once daily. No current facility-administered medications on file prior to visit. 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 PAST SURGICAL HISTORY Procedure Laterality Date - COLONOSCOP W/ OR W/O BRSH SPEC 06/02/2017 2 year repeat/hard IV stick - COLONOSCOPY 2013 - EGD 2013, 08/08 - EGD W/O OR W/BRUSH/WASH 06/02/2017 EGD - KIDNEY SURGERY HX - PAST SURGICAL HISTORY OF 2013 umbilical hernia repair - PAST SURGICAL HISTORY OF prostate biopsy Social History Marital status: Spouse name: Years of education: Number of children: 5 Social History Main Topics Smoking status: Former Smoker Packs/day: 0.00 Years: 10.00 Types: Cigars Quit date: 11/07/2002 Smokeless tobacco: Never Used Alcohol use: No Drug use: No Sexual activity: Yes Partners with: Female FAMILY HISTORY Problem Relation Age of Onset - Heart Father MA - Prostate Cancer Father - Diabetes Mother - Breast Cancer Sister - Heart Brother - pres[place] [OTHER] Brother LABS - disregard A1c -- invalid in the presence of anemia Component Latest Ref Rng AND Units 12/23/2017 Protein, Total 6.3 - 8.0 g/dL 6.4 Albumin 3.9 - 4.9 g/dL 3.2 (L) Calcium 8.5 - 10.2 mg/dL 8.2 (L) Bilirubin, Total 0.2 - 1.3 mg/dL 1.8 (H) Alkaline Phosphatase 36 - 108 U/L 44 AST 14 - 40 U/L 25 Glucose 74 - 99 mg/dL 105 (H) BUN 9 - 24 mg/dL 23 Creatinine 0.73 - 1.22 mg/dL 1.77 (H) Sodium 136 - 144 mmol/L 137 Potassium 3.7 - 5.1 mmol/L 4.5 Chloride 97 - 105 mmol/L 102 CO2 22 - 30 mmol/L 24 Anion Gap 9 - 18 mmol/L 11 ALT 10 - 54 U/L 16 eGFR- 45 eGFR-All Other Races . 37 Component Latest Ref Rng AND Units 10/30/2017 WBC, [place] 3.70 - 11.00 k/uL 6.40 RBC, [place] 4.20 - 6.00 m/uL 2.07 (L) Hemoglobin, [place] 13.0 - 17.0 g/dL 7.0 (L) Hematocrit, [place] 39.0 - 51.0 % 23.4 (L) MCV, [place] 80.0 - 100.0 fL 113.0 (H) MCH, [place] 26.0 - 34.0 pg 33.8 MCHC, [place] 30.5 - 36.0 g/dL 29.9 (L) RDW, [place] 11.5 - 15.0 % 17.6 (H) Platelet Cnt, [place] 150 - 400 k/uL 97 (L) MPV, [place] 9.0 - 12.7 fL 12.8 (H) Absol Gran Count 1.45 - 7.50 k/uL 3.97 Absolute nRBC <0.01 k/uL Preliminary result. Interpret with caution. Final results may vary. Results . . . PHYSICAL EXAMINATION: General appearance: morbidly obese, clean, depressed / exhausted appearance; leach is trimmed, he is wearing clean clothing Skin: dry Head: normal Eyes: Anicteric sclera. Pupils are equally round and reactive to light. Extraocular movements are intact. Neck: Supple, no adenopathy; thyroid symmetric, normal size, no bruits Lungs: lungs clear to auscultation Heart: holosystolic blowing murmur Extremities: edema bilat LE, Good capillary refill. Musculoskeletal: Spine range of motion normal. Muscular strength: proximal weakness with difficulty arising from the exam room chair; now amb with a cane Peripheral pulses: Normal ASSESSMENT/PLAN: 1. Uncontrolled type 2 diabetes mellitus with complication, with long-term current use of insulin (HCC) - ICD9: 250.82, V58.67, ICD10: E11.8, E11.65, Z79.4 (primary diagnosis) - At goal per his home monitoring - no LBS -- average looks great - stop Glipizide today due to renal function and risk for severe LBS - Lantus 25 twice daily - morning and evening - Humalog plus 2 u per 50 > 150 2. HTN - controlled and at goal of < 140/90 - aldactone being held at this oint 3. HPL - controlled and at goal of LDL < 100 - statin and asa 4. Hypothyroid - clinically euthyroid at today's exam - continues to follow with PCP 5. Anemia - with recent transfusions - Do not do A1c - continues to be watched very closely Follow up in 3 months Patient is to continue to follow up with his PCP and with other consultants regarding his other medical problems. The patient has my card, and knows how to reach my office. I thank you for the opportunity to participate in the continued care of Hang Meza. Please do not hesitate to contact me if you have further concerns or questions. Magdiel Lee, MS, RD, MD, CCD, FACN, FACP, FACE Diplomate, [place] [employer] Diplomate, National Board of Physician Nutrition Specialists Endocrinology / / [facility] [id number] Referring Provider: MAGDIEL LEE [[id number]] Allergies As of Date: 02/17/2018 (No Known Allergies) Date Reviewed: 02/17/2018 Reviewed by: Magdiel Lee - Fully Assessed Reason for Visit: Follow Up [171] Primary Visit Diagnosis:Uncontrolled type 2 diabetes mellitus with stage 3 chronic kidney disease, with long- term current use of insulin (HCC) [E11.22, E11.65, N18.3, Z79.4] Other Visit Diagnoses:Mixed hyperlipidemia [E78.2] Acquired hypothyroidism [E03.9] Obesity, Class III, BMI >= 40 E66.01 [E66.01] Anemia, chronic renal failure, stage 3 (moderate) [N18.3, D63.1] Uncontrolled type 2 diabetes mellitus without complication, with long-term current use of insulin (HCC) [E11.65, Z79.4] Order(s):lancets (FREESTYLE LANCETS) 28 gauge miscTest blood glucose 4 times dailyDisp: 400 EachRfl: 3 Insulin [place], Disposable, (BD ULTRAFINE III MINI PEN) 31 gauge x /16 ndleUSE WITH INSULIN PENS 4 TIMES DAILYDisp: 400 EachRfl: 3 Prescriptions as of 02/17/2018 Sig: LANCETS 28 GAUGE Test blood glucose 4 times da* PEN NEEDLE, DIABETIC 31 GAUGE* USE WITH INSULIN PENS 4 TIMES* FREESTYLE LITE STRIPS Test blood glucose 4 times da* INSULIN GLARGINE (U-100) 100 * Inject 25 Units subcutaneousl* ARANESP INJECTION by INJECTION(UNSPECIFIED PARE* FUROSEMIDE 40 MG TABLET Take 80 mg by mouth every 48 * PANTOPRAZOLE 40 MG TABLET,DEL* Take 1 tablet by mouth twice * SIMVASTATIN 20 MG TABLET Take 1 tablet by mouth once d* SUCRALFATE 1 GRAM TABLET Take 1 tablet by mouth four t* INSULIN LISPRO 100 UNIT/ML JAIMES* 12 u with breakfast, 22 u wit* FERROUS SULFATE 325 MG (65 MG* Take 1 tablet by mouth daily * LEVOTHYROXINE 25 MCG TABLET Take 1 tablet by mouth once d* METOPROLOL TARTRATE 25 MG TAB* Take 1 tablet by mouth twice * METAMUCIL ORAL Take by mouth once daily. LORATADINE 10 MG TABLET Take 10 mg by mouth once lilian* ASPIRIN 81 MG TABLET,DELAYED * Take 81 mg by mouth once lilian* DESOXIMETASONE 0.25 % TOPICAL* Apply thin layer twice daily METHYLCELLULOSE (LAXATIVE) 50* Take 500 mg by mouth DAILY. MICONAZOLE NITRATE 2 % TOPICA* Apply 1 application to affect* MECLIZINE 25 MG TABLET Take 1 tablet by mouth three * LACTULOSE 10 GRAM/15 ML ORAL * Take 30 mL by mouth once lilian* RIFAXIMIN 550 MG TABLET Take 1 tablet by mouth twice * SPIRONOLACTONE 50 MG TABLET Take 1 tablet by mouth once d* Medication notes this encounter FUROSEMIDE 40 MG TABLET >> Lisa Maldonado Ma 02/17/2018 12:59 PM >> LISA MALDONADO MA Feb 17, 2018 12:59 PM Pt taking 40mg qd SPIRONOLACTONE 50 MG TABLET >> Lisa Maldonado Ma 02/17/2018 1:01 PM >> JESSE CEDENOLISA Feb 17, 2018 1:01 PM Not taking as of 02/05/2018 Problem List As Of Date 02/17/2018 Noted Resolved Viral gastroenteritis [A08.4] INVALID FOR*09/06/2014 Dehydration [E86.0] INVALID FOR*09/06/2014 Hypothyroidism [E03.9] GERD (gastroesophageal reflux disease) [K21.9] Renal disorder [N28.9] More... 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 History of colonic polyps [Z86.010] INVALID FOR* More... Morbid obesity (HCC) [E66.01] INVALID FOR* Anemia, chronic renal failure, stage 3 (moderat*INVALID FOR* Acute pancreatitis [K85.90] INVALID FOR*12/23/2017 Obesity, Class III, BMI >= 40 E66.01 [E66.01] INVALID FOR* Anemia [D64.9] INVALID FOR*12/23/2017 Prescriptions ordered this encounter Disp Refills Start End LANCETS 28 GAUGE 400 * 3 02/17/2018 Sig: Test blood glucose 4 times daily PEN NEEDLE, DIABETIC 31 GAUGE X 11/07 400 * 3 02/17/2018 Sig: USE WITH INSULIN PENS 4 TIMES DAILY Medications Discontinued During This Encounter glipiZIDE (GLUCOTROL) 5 mg tablet 90 t* 3 11/11/2017 02/17/2018 Route: ORAL Sig: Take 1 tablet by mouth daily before breakfast. Disc: Clinical Decision lancets (FREESTYLE LANCETS) 28 gauge* 400 * 3 01/07/2017 02/17/2018 Cmt: Use for blood glucose check 4 times a day Sig: Test blood glucose 4 times daily Disc: Reason for discontinue is not on file. Insulin [place], Disposable, (BD ULT* 400 * 3 01/07/2017 02/17/2018 Sig: USE WITH INSULIN PENS 4 TIMES DAILY Disc: Reason for discontinue is not on file. Disposition: Return in about 3 months (around 05/20/2018) for diabetes . Follow-up and Disposition History Recorded Encounter Status:Closed by MAGDIEL LEE MD on 02/17/18 PROGRESS Observed: 02/16/2018 Status: COMPLETED Source: [place] 1:07 AM [facility] REPOSITORY HNO ID: [id number] Author: Kayla (Mine Safety Director) Day Service: (none) Author Type: Nurse Practitioner Type: Progress Notes Filed: 02/16/2018 1:23 AM Note Text: SUBJECTIVE: Hang Meza is an 77 year old male who presents for a follow up evaluation of hypertension and diabetes DM Type 2. Known Complications have included:hypertension and hyperlipidemia Exacerbating Factors include:obesity Patient concerns: here today with daughter, Addie. Following with Dr. Hodges (hepatology), Dr. Ball (nephrology), and Dr. Pardo (hematology), Dr. Lee (endocrinology). Continues with Cassie. Blood transfusion 12/20/17, 12/22/17, 01/28/18. 12# weight loss since starting Lasix 10/12. Current hyperglycemia symptoms include:None There have been 0 episodes of hyperglycemia symptoms since the last visit. Hypoglycemic symptoms include:None There have been 0 episodes of hypoglycemia symptoms since the last visit. Symptoms: Dizziness/Lightheaded - No Chest Pain - No Shortness of Breath - No Swelling No Fatigue No Other current symptoms include: None- as above, daughter notes hearing loss Cardiovascular risk factors: hyperlipidemia, diabetes mellitus, obesity, sedentary life style and hypertension Use of agents associated with hypertension: thyroid hormones DATA: Home Monitoring average results:home blood tests - 116-267, running higher after dinner Lab Value Units Date High Low GLUC 105 mg/dL 12/23/2017 99 74 CREAT 1.77 mg/dL 12/23/2017 1.22 0.73 HBA1C 6.0 % 10/28/2017 5.6 4.3 CHOL 87 mg/dL 12/20/2017 HDL 34 mg/dL 12/20/2017 LDL 39 mg/dL 12/20/2017 TRIG No results within date range. ALT 16 U/L 12/23/2017 54 10 Patient denies any side effects of medication. OBJECTIVE: HEAD:Normocephalic, no masses, lesions, tenderness or abnormalities Head: Normocephalic Ears: R TM - clear with good landmarks, L TM - clear with good landmarks EYESPERRLA and EOM's intact THYROID:normal to inspection and palpation, no carotid bruits CHEST:Lungs clear to auscultation. No wheezing, rhonchi, rales CV:normal, Regular rate and rhythm, + murmur (known ) ASSESSMENT/PLAN: 1. Anemia of chronic illness - ICD9: 285.29, ICD10: D63.8 (primary diagnosis) Repeat fecal occult blood, f/u with GI as scheduled - FECAL OCCULT BLOOD TEST - PARKING FOR HANDICAPPED 2. Bilateral hearing loss, unspecified hearing loss type - ICD9: 389.9, ICD10: H91.93 No cerumen today, consider hearing aid eval 3. Essential hypertension - ICD9: 401.9, ICD10: I10 - good control - Continue current medication(s) - Recommended regular aerobic exercise. - Recommend home blood pressure monitoring, to bring results in on next visit - Goal of BP <130/80 4. CKD (chronic kidney disease) stage 3, GFR 30-59 ml/min - ICD9: 585.3, ICD10: N18.3 Stable, f/u with Dr. Ball 5. Type 2 diabetes mellitus with diabetic polyneuropathy, with long-term current use of insulin (HCC) - ICD9: 250.60, 357.2, V58.67, ICD10: E11.42, Z79.4 Controlled. - Continue current medications - Blood glucose monitoring on a once a day schedule - Follow up in 3 months, sooner should any other issues arise. Kayla Bernstein APRN.ENVELOPE STAMPING MACHINE OPERATOR DOWNTIME REPORT Observed: 02/12/2018 Status: F Source: [place] 2:18 PM [facility] REPOSITORY [facility] Medical Records Department [address] [place] [address] Downtime Report MR#: [id number] Acct: [id number] Name: HANG MEZA Rep #: [id number] : 1940 77 From: Rick Ortega PCP: Care Physician, No Primary Status: REG CLI This patient was seen during an EMR downtime January 26, 2018 - February 02, 2018. This patient may have a combination of paper and electronic documentation or all paper documentation. All documentation is viewable within the e-chart portion of [facility] for each patient visit. DOWNTIME REPORT Observed: 02/12/2018 Status: F Source: [place] 1:59 PM [facility] REPOSITORY [facility] Medical Records Department [address] [place] [address] Downtime Report MR#: [id number] Acct: [id number] Name: HANG MEZA Rep #: [id number] : 1940 77 From: Rick Ortega PCP: Kayla Bernstein Status: REG CLI This patient was seen during an EMR downtime January 26, 2018 - February 02, 2018. This patient may have a combination of paper and electronic documentation or all paper documentation. All documentation is viewable within the e-chart portion of [facility] for each patient visit. [place] HEMATOCRIT Collected: 02/10/2018 Status: F Source: [place] 2:27 PM [facility] REPOSITORY TYPE CODE TESTS RESULT OUT OF REFERENCE UNITS RANGE LAB WHCT 39.0-51.0 % Low [place] Hematocrit 25.2 Result Comment: Test performed at: [facility], [address] [place] [address] [address] [place] [address]. [place] HEMOGLOBIN Collected: 02/10/2018 Status: F Source: [place] 2:27 PM [facility] REPOSITORY TYPE CODE TESTS RESULT OUT OF REFERENCE UNITS RANGE LAB WHGB 13.0-17.0 g/dL Low [place] Hemoglobin 7.9 Result Comment: Test performed at: [facility], [address] [place] [address] [address] [place] [address]. TYPE AND SCREEN Collected: 02/10/2018 Status: F Source: [place] 2:22 PM [facility] REPOSITORY Order Comment: PRETRANSFUSION HGB = 7.9 HCT = PERFORMED AT [facility] CMV NEG?* N Give When? 02/12/18 @0830 Irradiated? N Leukodepleted? Y Reason for Type AND Screen/Red Cells: ANEMIA TYPE CODE TESTS RESULT OUT OF RANGE REFERENCE UNITS LAB B10.0800 A Normal BLOOD TYPE GEL POSITIVE LAB B100.4000 Normal Antibody NEGATIVE Screen Performed By: #### B101.7450 #### [facility] [address] [place], [address] Collected: 02/10/2018 Status: F Source: [place] 2:22 PM [facility] REPOSITORY TYPE CODE TESTS RESULT OUT OF REFERENCE UNITS RANGE LAB U100.0000 [id number] TRANSFUSED PRODUCT: T AND S with Crossmatch, Red Cells COUNT: 2 Performed By: #### U100.0000 #### [facility] - refer to report for specific site FECAL OCCULT BLD Collected: 02/07/2018 Status: F Source: [facility] 1:30 PM [facility] REPOSITORY TYPE CODE TESTS RESULT OUT OF RANGE REFERENCE UNITS LAB IFO Negative Abnormal Alert Immuno Positive FOB Result Comment: This test was developed and its performance characteristics determined by [facility]'s [facility] Pathology and Laboratory Medicine [place] ([facility]). It has not been cleared or approved by the FDA. [facility] is regulated under CLIA as qualified to perform high-complexity testing. This test is used for clinical purposes. It should not be regarded as investigational or for research. Performed By: #### IFOBT #### [facility] [address] [place], [place] [address] PROGRESS Observed: 02/04/2018 Status: COMPLETED Source: [place] 10:10 AM [facility] REPOSITORY HNO ID: [id number] Author: Neal Meehan Service: (none) Author Type: Physician Type: Progress Notes Filed: 02/04/2018 10:13 AM Note Text: Subjective Notes some pain and tingle in feet, has been using diabetic footwear with benefit. Review of Systems Musculoskeletal: Bilateral foot sx Objective Physical Exam Musculoskeletal: Some foot deformity with deviated great toe, sensory deficit. ASSESSMENT/PLAN: 1. Anemia of chronic illness - ICD9: 285.29, ICD10: D63.8 (primary diagnosis) - FECAL OCCULT BLOOD TEST - PARKING FOR HANDICAPPED 2. Bilateral hearing loss, unspecified hearing loss type - ICD9: 389.9, ICD10: H91.93 3. Diabetes, would benefit from diabetic footwear. Neal Meehan MD CNOV Observed: 02/04/2018 Status: COMPLETED Source: [place] 9:20 AM [facility] REPOSITORY Office Visit ([facility]) HANG MEZA ([id number]) 1940 M Date Time Provider Department 02/04/18 9:20 AM KAYLA BERNSTEIN (HARNESS INSTALLER) [facility] During your visit today, we recorded the following information about you: Temperature Blood pressure Weight 98.5 degrees 110/70 127 kg Kayla Bernstein APRN.ENVELOPE STAMPING MACHINE OPERATOR 02/04/2018 9:56 AM Signed Please review aldactone with Dr. Ball at upcoming appt. (once vs twice daily dosing). Neal Meehan MD 02/04/2018 10:13 AM Signed Subjective Notes some pain and tingle in feet, has been using diabetic footwear with benefit. Review of Systems Musculoskeletal: Bilateral foot sx Objective Physical Exam Musculoskeletal: Some foot deformity with deviated great toe, sensory deficit. ASSESSMENT/PLAN: 1. Anemia of chronic illness - ICD9: 285.29, ICD10: D63.8 (primary diagnosis) - FECAL OCCULT BLOOD TEST - PARKING FOR HANDICAPPED 2. Bilateral hearing loss, unspecified hearing loss type - ICD9: 389.9, ICD10: H91.93 3. Diabetes, would benefit from diabetic footwear. MD Kayla Cai APRN.ENVELOPE STAMPING MACHINE OPERATOR 02/16/2018 1:23 AM Addendum SUBJECTIVE: Hang Meza is an 77 year old male who presents for a follow up evaluation of hypertension and diabetes DM Type 2. Known Complications have included:hypertension and hyperlipidemia Exacerbating Factors include:obesity Patient concerns: here today with daughter, Addie. Following with Dr. Hodges (hepatology), Dr. Ball (nephrology), and Dr. Pardo (hematology), Dr. Lee (endocrinology). Continues with [facility]. Blood transfusion 12/20/17, 12/22/17, 01/28/18. 12# weight loss since starting Lasix 10/12. Current hyperglycemia symptoms include:None There have been 0 episodes of hyperglycemia symptoms since the last visit. Hypoglycemic symptoms include:None There have been 0 episodes of hypoglycemia symptoms since the last visit. Symptoms: Dizziness/Lightheaded - No Chest Pain - No Shortness of Breath - No Swelling No Fatigue No Other current symptoms include: None- as above, daughter notes hearing loss Cardiovascular risk factors: hyperlipidemia, diabetes mellitus, obesity, sedentary life style and hypertension Use of agents associated with hypertension: thyroid hormones DATA: Home Monitoring average results:home blood tests - 116-267, running higher after dinner Lab Value Units Date High Low GLUC 105 mg/dL 12/23/2017 99 74 CREAT 1.77 mg/dL 12/23/2017 1.22 0.73 HBA1C 6.0 % 10/28/2017 5.6 4.3 CHOL 87 mg/dL 12/20/2017 HDL 34 mg/dL 12/20/2017 LDL 39 mg/dL 12/20/2017 TRIG No results within date range. ALT 16 U/L 12/23/2017 54 10 Patient denies any side effects of medication. OBJECTIVE: HEAD:Normocephalic, no masses, lesions, tenderness or abnormalities Head: Normocephalic Ears: R TM - clear with good landmarks, L TM - clear with good landmarks EYESPERRLA and EOM's intact THYROID:normal to inspection and palpation, no carotid bruits CHEST:Lungs clear to auscultation. No wheezing, rhonchi, rales CV:normal, Regular rate and rhythm, + murmur (known ) ASSESSMENT/PLAN: 1. Anemia of chronic illness - ICD9: 285.29, ICD10: D63.8 (primary diagnosis) Repeat fecal occult blood, f/u with GI as scheduled - FECAL OCCULT BLOOD TEST - PARKING FOR HANDICAPPED 2. Bilateral hearing loss, unspecified hearing loss type - ICD9: 389.9, ICD10: H91.93 No cerumen today, consider hearing aid eval 3. Essential hypertension - ICD9: 401.9, ICD10: I10 - good control - Continue current medication(s) - Recommended regular aerobic exercise. - Recommend home blood pressure monitoring, to bring results in on next visit - Goal of BP <130/80 4. CKD (chronic kidney disease) stage 3, GFR 30-59 ml/min - ICD9: 585.3, ICD10: N18.3 Stable, f/u with Dr. Ball 5. Type 2 diabetes mellitus with diabetic polyneuropathy, with long-term current use of insulin (HCC) - ICD9: 250.60, 357.2, V58.67, ICD10: E11.42, Z79.4 Controlled. - Continue current medications - Blood glucose monitoring on a once a day schedule - Follow up in 3 months, sooner should any other issues arise. Kayla Bernstein APRN.ENVELOPE STAMPING MACHINE OPERATOR Referring Provider: SELF [200] Allergies As of Date: 02/04/2018 (No Known Allergies) Date Reviewed: 02/04/2018 Reviewed by: Mago Rebolledo Ma - Fully Assessed Reason for Visit: Establish Care [42] Primary Visit Diagnosis:Anemia of chronic illness [D63.8] Other Visit Diagnoses:Bilateral hearing loss, unspecified hearing loss type [H91.93] Essential hypertension [I10] CKD (chronic kidney disease) stage 3, GFR 30-59 ml/min [N18.3] Type 2 diabetes mellitus with diabetic polyneuropathy, with long-term current use of insulin (HCC) [E11.42, Z79.4] Order(s):FECAL OCCULT BLOOD TEST [SQIFOBT] Order #: [id number] FUTURE PARKING FOR HANDICAPPED [[id number]] Order #: [id number] Prescriptions as of 02/04/2018 Sig: ARANESP INJECTION by INJECTION(UNSPECIFIED PARE* FUROSEMIDE 40 MG TABLET Take 80 mg by mouth every 48 * PANTOPRAZOLE 40 MG TABLET,DEL* Take 1 tablet by mouth twice * SIMVASTATIN 20 MG TABLET Take 1 tablet by mouth once d* SUCRALFATE 1 GRAM TABLET Take 1 tablet by mouth four t* INSULIN LISPRO 100 UNIT/ML JAIMES* 12 u with breakfast, 22 u wit* FERROUS SULFATE 325 MG (65 MG* Take 1 tablet by mouth daily * GLIPIZIDE 5 MG TABLET Take 1 tablet by mouth daily * LEVOTHYROXINE 25 MCG TABLET Take 1 tablet by mouth once d* SPIRONOLACTONE 50 MG TABLET Take 1 tablet by mouth once d* METOPROLOL TARTRATE 25 MG TAB* Take 1 tablet by mouth twice * METAMUCIL ORAL Take by mouth once daily. LORATADINE 10 MG TABLET Take 10 mg by mouth once lilian* ASPIRIN 81 MG TABLET,DELAYED * Take 81 mg by mouth once lilian* DESOXIMETASONE 0.25 % TOPICAL* Apply thin layer twice daily X INSULIN GLARGINE (U-100) 100 * Inject 25 Units subcutaneousl* LANCETS 28 GAUGE Test blood glucose 4 times da* PEN NEEDLE, DIABETIC 31 GAUGE* USE WITH INSULIN PENS 4 TIMES* X BLOOD SUGAR DIAGNOSTIC STRIPS Test blood glucose 4 times da* METHYLCELLULOSE (LAXATIVE) 50* Take 500 mg by mouth DAILY. MICONAZOLE NITRATE 2 % TOPICA* Apply 1 application to affect* MECLIZINE 25 MG TABLET Take 1 tablet by mouth three * LACTULOSE 10 GRAM/15 ML ORAL * Take 30 mL by mouth once lilian* RIFAXIMIN 550 MG TABLET Take 1 tablet by mouth twice * Problem List As Of Date 02/04/2018 Noted Resolved Viral gastroenteritis [A08.4] INVALID FOR*09/06/2014 Dehydration [E86.0] INVALID FOR*09/06/2014 Hypothyroidism [E03.9] GERD (gastroesophageal reflux disease) [K21.9] Renal disorder [N28.9] More... 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 History of colonic polyps [Z86.010] INVALID FOR* More... Morbid obesity (HCC) [E66.01] INVALID FOR* Anemia, chronic renal failure, stage 3 (moderat*INVALID FOR* Acute pancreatitis [K85.90] INVALID FOR*12/23/2017 Obesity, Class III, BMI >= 40 E66.01 [E66.01] INVALID FOR* Anemia [D64.9] INVALID FOR*12/23/2017 Other instructions from your clinician: Please review aldactone with Dr. Ball at upcoming appt. (once vs twice daily dosing). Disposition: Return in about 2 months (around 04/06/2018), or if symptoms worsen or fail to improve. Follow-up and Disposition History Recorded Encounter Status:Closed by NEAL MEEHAN MD on 02/04/18 CBC-COMPLETE BLOOD CNT Collected: 01/27/2018 Status: F Source: [place] NO DIFF 3:44 PM [facility] REPOSITORY Order Comment: RESULT(S) PREVIOUSLY REPORTED ON MANUAL REQUISITION DURING DOWNTIME. TYPE CODE TESTS RESULT OUT OF RANGE REFERENCE UNITS LAB L100.1000 4.4-11.0 K/mm3 Normal WBC 7.6 LAB L100.1200 4.6-6.2 M/mm3 Low RBC 2.24 LAB L100.1300 13.0-16.5 g/dl Low HGB 7.7 LAB L100.1400 40-54 % Low HCT 24.6 LAB L100.1500 80-94 fL High MCV 109.8 LAB L100.1600 27.0-32.0 pg High MCH 34.4 LAB L100.1700 32-36 g/gl Low MCHC 31.3 LAB L100.1810 11.6-14.6 % High RDW CV 19.3 LAB L100.1820 35.1-43.9 fl High RDW SD 77.0 LAB L100.1900 150-450 K/mm3 Low PLT 90 LAB L100.2000 6.2-12.0 fl High MPV 13.1 Performed By: #### L100.0500 #### [facility] [place], [address] RENAL PROFILE Collected: 01/27/2018 Status: F Source: [place] 3:44 PM [facility] REPOSITORY Order Comment: DR. HODGES ORDERED BMP DR. BALL ORDERED RENAL,IBC,FE,LOW,CBC RESULT(S) PREVIOUSLY REPORTED ON MANUAL REQUISITION DURING DOWNTIME. TYPE CODE TESTS RESULT OUT OF RANGE REFERENCE UNITS LAB L501.0100 74-106 mg/dL High GLU 132 Result Comment: Fasting Glucose result greater than or equal to 126 mg/dL suggests DIABETES MELLITUS per A.D.A. criteria. Please note revised GLUCOSE reference range effective 2017. LAB L501.1000 7-18 mg/dL High BUN 42 LAB L501.1100 0.70-1.30 mg/dL High CREAT,SERUM 2.16 Result Comment: The validity of the calculated GFR AND GFRAA in patients over 70 years has not been determined. Clinical correlation is essential. LAB L501.1110 >60 mL/min Low EST GFR 32 LAB L501.1115 >60 mL/min Low EST GFR - AA 39 LAB L501.1300 10-20 RATIO Normal BUN/CRE 19.4 LAB L501.1800 3.2-5.0 g/dL Normal ALB 3.4 LAB L501.2200 8.5-10.1 mg/dL Normal CA 8.6 LAB L501.2300 2.5-4.9 mg/dL Normal PHOS 3.7 LAB L501.5300 136-145 mmol/L Normal NA 142 LAB L501.5600 3.5-5.1 mmol/L High K 5.2 LAB L501.5900 98-107 mmol/L Normal CL 107 LAB L501.6100 21.0-32.0 mmol/L Normal CO2 25.0 Performed By: #### L500.3600, L503.6030, L503.6550 #### [facility] [address] [place], [place], [id number] IRON+IRON BINDING Collected: 01/27/2018 Status: F Source: [facility] 3:44 PM [facility] REPOSITORY Order Comment: DR. HODGES ORDERED BMP DR. BALL ORDERED RENAL,IBC,FE,LOW,CBC RESULT(S) PREVIOUSLY REPORTED ON MANUAL REQUISITION DURING DOWNTIME. TYPE CODE TESTS RESULT OUT OF RANGE REFERENCE UNITS LAB L503.6075 250-450 ug/dL TIBC Normal 396 LAB L503.6150 65-175 ug/dL High IRON 308 LAB L503.6250 15.0-55.0 % High IRON SATURATION 77.8 Performed By: #### L500.3600, L503.6030, L503.6550 #### [facility] [address] [place], [place], [id number] FERRITIN Collected: 01/27/2018 Status: F Source: [place] 3:44 PM [facility] REPOSITORY Order Comment: DR. HODGES ORDERED BMP DR. BALL ORDERED RENAL,IBC,FE,LOW,CBC RESULT(S) PREVIOUSLY REPORTED ON MANUAL REQUISITION DURING DOWNTIME. TYPE CODE TESTS RESULT OUT OF RANGE REFERENCE UNITS LAB L503.6550 26-388 ng/mL Normal FERRITIN 36 Performed By: #### L500.3600, L503.6030, L503.6550 #### [facility] [address] [place], [address] TYPE AND SCREEN Collected: 01/27/2018 Status: F Source: [place] 3:07 PM [facility] REPOSITORY Order Comment: RESULT(S) PREVIOUSLY REPORTED ON MANUAL REQUISITION DURING DOWNTIME. PRETRANSFUSION HGB = 7.9 HCT = UNK PERFORMED AT [facility] CMV NEG?* N Give When? 01/28/18 09:00AM Irradiated? N Leukodepleted? Y Reason for Type AND Screen/Red Cells: ANEMIA TYPE CODE TESTS RESULT OUT OF RANGE REFERENCE UNITS LAB B10.0800 A Normal BLOOD TYPE GEL POSITIVE LAB B100.4000 Normal Antibody NEGATIVE Screen Performed By: #### B101.7450 #### [facility] [address] [place], [address] RC Collected: 01/27/2018 Status: F Source: [place] 3:07 [facility] [place] TYPE CODE TESTS RESULT OUT OF REFERENCE UNITS RANGE LAB U100.0000 [id number] TRANSFUSED PRODUCT: T AND S with Crossmatch, Red Cells COUNT: 2 Performed By: #### U100.0000 #### [facility] - refer to report for specific site FERRITIN Collected: 01/27/2018 Status: F Source: [place] 3:00 PM [facility] REPOSITORY TYPE CODE TESTS RESULT OUT OF REFERENCE UNITS RANGE LAB FERR 30.3-565.7 ng/mL Ferritin 37.5 Performed By: #### FERR, IRON #### [facility] [address] [place], [place] [address] IRON AND TIBC Collected: 01/27/2018 Status: F Source: [place] 3:00 PM [facility] REPOSITORY TYPE CODE TESTS RESULT OUT OF REFERENCE UNITS RANGE LAB IRN 41-186 ug/dL [place] 328 LAB TIBC 232-386 ug/dL TIBC 366 LAB SAT 15-57 % Transferrin High Saturatn 90 Performed By: #### FERR, IRON #### [facility] [address] [place], [place] [address] [place] HEMATOCRIT Collected: 01/27/2018 Status: F Source: [place] 1:57 PM [facility] REPOSITORY TYPE CODE TESTS RESULT OUT OF REFERENCE UNITS RANGE LAB WHCT 39.0-51.0 % Low [place] Hematocrit 25.3 Result Comment: Test performed at: [facility], [address] [place] [address]. [place] HEMOGLOBIN Collected: 01/27/2018 Status: F Source: [place] 1:57 PM [facility] REPOSITORY TYPE CODE TESTS RESULT OUT OF REFERENCE UNITS RANGE LAB WHGB 13.0-17.0 g/dL Low [place] Hemoglobin 7.9 Result Comment: Test performed at: [facility], [address] [place] [address] [address] [place] [address]. [place] HEMATOCRIT Collected: 01/13/2018 Status: F Source: [place] 2:16 PM [facility] REPOSITORY TYPE CODE TESTS RESULT OUT OF REFERENCE UNITS RANGE LAB WHCT 39.0-51.0 % Low [place] Hematocrit 27.8 Result Comment: Test performed at: [facility], [address] [place] [address]. [place] HEMOGLOBIN Collected: 01/13/2018 Status: F Source: [place] 2:16 PM [facility] REPOSITORY TYPE CODE TESTS RESULT OUT OF REFERENCE UNITS RANGE LAB WHGB 13.0-17.0 g/dL Low [place] Hemoglobin 8.9 Result Comment: Test performed at: [facility], [address] [place] [address]. PROGRESS Observed: 12/30/2017 Status: COMPLETED Source: [place] 11:44 AM [facility] REPOSITORY HNO ID: [id number] Author: Kayla Bernstein (Mine Safety Director) Service: (none) Author Type: Nurse Practitioner Type: Progress Notes Filed: 01/05/2018 11:46 AM Note Text: Provider Documentation: In follow-up of hospitalization, Hang Meza is a 77 year old male with the chief complaint of abdominal pain, elevated Lipase. I have reviewed the patient?s last hospital course including diagnostic testing performed during this hospitalization, their discharge medications, and my assessment and plan with the patient and any family members present at today?s visit. HPI: Admitted after episode of severe abdominal pain. Lipase elevated - treated for acute pancreatitis - thought to be related to Lasix. Stopped for now. Found to be severely anemic. Seen by GI, received blood transfusion, thought to be due to oozing on gastric polyps on EGD. Discharged with PPI twice daily, carafate. Following with hematology, hepatology/GI, endocrinology and cardiology. PAST MEDICAL HISTORY: Reviewed and updated ALLERGIES: Reviewed and updated MEDICATIONS: Reviewed and updated SOCIAL HISTORY: Reviewed and updated FAMILY HISTORY: Reviewed and updated REVIEW OF SYSTEMS: SMBG fasting 107, bkfast 111, lunch 143, dinner 97 Compliant with Lantus twice daily and Humalog with meals. Feeling well otherwise. Here today with daughter, Addie. PHYSICAL EXAMINATION BP 126/82 Ht 5' 8 (1.73m) Wt 283 lb 12.8 oz (128.7kg) BMI 43.16 kg/(m2). General appearance: well appearing, alert, in no acute distress, well-hydrated, well nourished, motor and sensory appear to be normal Lungs: clear to auscultation, no wheezing or rhonchi Heart: Positive findings: murmur: - + Abdomen: Normal abdominal exam, Abdomen soft, non-tender. Bowel sounds normal. No masses, organomegaly Extremities: Extremities normal. No deformities, edema, or skin discoloration. Good capillary refill. 1. I have reviewed the patient record including associated test results during the last hospitalization Yes 2. I have reviewed Lab test Yes 3. I have reviewed Radiology test Yes 4. I reviewed assessment/plan with the patient/family member Yes ASSESSMENT/PLAN ASSESSMENT/PLAN: 1. Essential hypertension - ICD9: 401.9, ICD10: I10 (primary diagnosis) - good control - Continue current medication(s) - Recommended regular aerobic exercise. - Recommend home blood pressure monitoring, to bring results in on next visit - Recheck in 3 months, sooner should new symptoms or problems arise. - Goal of BP <130/80 2. Acute pancreatitis without infection or necrosis, unspecified pancreatitis type - ICD9: 577.0, ICD10: K85.90 Improved, tolerating diet without sx 3. CKD (chronic kidney disease) stage 3, GFR 30-59 ml/min - ICD9: 585.3, ICD10: N18.3 Stable, following with Dr. Ball 4. Aortic stenosis, moderate - ICD9: 424.1, ICD10: I35.0 Observe, following with cardiology 5. Cirrhosis 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 ascites, unspecified hepatic cirrhosis type (HCC) - ICD9: 571.5, ICD10: K74.60 Stable, following with Dr. Hodges Continue f/u with hematology with monitoring of anemia and infusion therapy as needed. Kayla Bernstein APRN.ENVELOPE STAMPING MACHINE OPERATOR December 30, 2017 11:45 AM CNOV Observed: 12/30/2017 Status: COMPLETED Source: [place] 11:00 AM [facility] REPOSITORY Office Visit ([facility]) HANG MEZA ([id number]) 1940 M Date Time Provider Department 12/30/17 11:00 AM KAYLA BERNSTEIN (NAILA) [facility] During your visit today, we recorded the following information about you: Blood pressure Weight Height 126/82 128.7 kg 1.727 m Kayla Bernstein (Naila) 01/05/2018 11:46 AM Signed Provider Documentation: In follow-up of hospitalization, Hang Meza is a 77 year old male with the chief complaint of abdominal pain, elevated Lipase. I have reviewed the patient?s last hospital course including diagnostic testing performed during this hospitalization, their discharge medications, and my assessment and plan with the patient and any family members present at today?s visit. HPI: Admitted after episode of severe abdominal pain. Lipase elevated - treated for acute pancreatitis - thought to be related to Lasix. Stopped for now. Found to be severely anemic. Seen by GI, received blood transfusion, thought to be due to oozing on gastric polyps on EGD. Discharged with PPI twice daily, carafate. Following with hematology, hepatology/GI, endocrinology and cardiology. PAST MEDICAL HISTORY: Reviewed and updated ALLERGIES: Reviewed and updated MEDICATIONS: Reviewed and updated SOCIAL HISTORY: Reviewed and updated FAMILY HISTORY: Reviewed and updated REVIEW OF SYSTEMS: SMBG fasting 107, bkfast 111, lunch 143, dinner 97 Compliant with Lantus twice daily and Humalog with meals. Feeling well otherwise. Here today with daughter, Addie. PHYSICAL EXAMINATION BP 126/82 Ht 5' 8 (1.73m) Wt 283 lb 12.8 oz (128.7kg) BMI 43.16 kg/(m2). General appearance: well appearing, alert, in no acute distress, well-hydrated, well nourished, motor and sensory appear to be normal Lungs: clear to auscultation, no wheezing or rhonchi Heart: Positive findings: murmur: - + Abdomen: Normal abdominal exam, Abdomen soft, non-tender. Bowel sounds normal. No masses, organomegaly Extremities: Extremities normal. No deformities, edema, or skin discoloration. Good capillary refill. 1. I have reviewed the patient record including associated test results during the last hospitalization Yes 2. I have reviewed Lab test Yes 3. I have reviewed Radiology test Yes 4. I reviewed assessment/plan with the patient/family member Yes ASSESSMENT/PLAN ASSESSMENT/PLAN: 1. Essential hypertension - ICD9: 401.9, ICD10: I10 (primary diagnosis) - good control - Continue current medication(s) - Recommended regular aerobic exercise. - Recommend home blood pressure monitoring, to bring results in on next visit - Recheck in 3 months, sooner should new symptoms or problems arise. - Goal of BP <130/80 2. Acute pancreatitis without infection or necrosis, unspecified pancreatitis type - ICD9: 577.0, ICD10: K85.90 Improved, tolerating diet without sx 3. CKD (chronic kidney disease) stage 3, GFR 30-59 ml/min - ICD9: 585.3, ICD10: N18.3 Stable, following with Dr. Ball 4. Aortic stenosis, moderate - ICD9: 424.1, ICD10: I35.0 Observe, following with cardiology 5. Cirrhosis 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 ascites, unspecified hepatic cirrhosis type (HCC) - ICD9: 571.5, ICD10: K74.60 Stable, following with Dr. Hodges Continue f/u with hematology with monitoring of anemia and infusion therapy as needed. Kayla Bernstein APRN.ENVELOPE STAMPING MACHINE OPERATOR December 30, 2017 11:45 AM Mago Rebolledo Ma 12/30/2017 1:43 PM Signed Transitional Care Management Progress Note The patients TCM visit was performed within the 7 days of discharge. Patient's Date of discharge: 12/23/2017 Date of initial coordinator contact after discharge: 12/24/2017 Discharge diagnosis: Pancreatitis Medication review completed Yes Mago Rebolledo Ma Referring Provider: SELF [200] Allergies As of Date: 12/30/2017 (No Known Allergies) Date Reviewed: 12/30/2017 Reviewed by: Lisa Zuñiga (Lead Manufacturing Technician), HUMAN DEVELOPMENT PROFESSOR - Fully Assessed Reason for Visit: TCM [Other] Cmt: follow up from [facility] stay Reason For Visit History Recorded Primary Visit Diagnosis:Essential hypertension [I10] Other Visit Diagnoses:Acute pancreatitis without infection or necrosis, unspecified pancreatitis type [K85.90] CKD (chronic kidney disease) stage 3, GFR 30-59 ml/min [N18.3] Aortic stenosis, moderate [I35.0] Cirrhosis 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 ascites, unspecified hepatic cirrhosis type (HCC) [K74.60] Prescriptions as of 12/30/2017 Sig: PANTOPRAZOLE 40 MG TABLET,DEL* Take 1 tablet by mouth twice * SIMVASTATIN 20 MG TABLET Take 1 tablet by mouth once d* SUCRALFATE 1 GRAM TABLET Take 1 tablet by mouth four t* INSULIN LISPRO 100 UNIT/ML JAIMES* 12 u with breakfast, 22 u wit* FERROUS SULFATE 325 MG (65 MG* Take 1 tablet by mouth daily * GLIPIZIDE 5 MG TABLET Take 1 tablet by mouth daily * LEVOTHYROXINE 25 MCG TABLET Take 1 tablet by mouth once d* SPIRONOLACTONE 50 MG TABLET Take 1 tablet by mouth once d* METOPROLOL TARTRATE 25 MG TAB* Take 1 tablet by mouth twice * METAMUCIL ORAL Take by mouth once daily. LORATADINE 10 MG TABLET Take 10 mg by mouth once lilian* ASPIRIN 81 MG TABLET,DELAYED * Take 81 mg by mouth once lilian* DESOXIMETASONE 0.25 % TOPICAL* Apply thin layer twice daily INSULIN GLARGINE (U-100) 100 * Inject 25 Units subcutaneousl* LANCETS 28 GAUGE Test blood glucose 4 times da* BLOOD SUGAR DIAGNOSTIC STRIPS Test blood glucose 4 times da* PEN NEEDLE, DIABETIC 31 GAUGE* USE WITH INSULIN PENS 4 TIMES* METHYLCELLULOSE (LAXATIVE) 50* Take 500 mg by mouth DAILY. MICONAZOLE NITRATE 2 % TOPICA* Apply 1 application to affect* MECLIZINE 25 MG TABLET Take 1 tablet by mouth three * LACTULOSE 10 GRAM/15 ML ORAL * Take 30 mL by mouth once lilian* RIFAXIMIN 550 MG TABLET Take 1 tablet by mouth twice * Problem List As Of Date 12/30/2017 Noted Resolved Viral gastroenteritis [A08.4] INVALID FOR*09/06/2014 Dehydration [E86.0] INVALID FOR*09/06/2014 Hypothyroidism [E03.9] GERD (gastroesophageal reflux disease) [K21.9] Renal disorder [N28.9] More... 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 History of colonic polyps [Z86.010] INVALID FOR* More... Morbid obesity (HCC) [E66.01] INVALID FOR* Anemia, chronic renal failure, stage 3 (moderat*INVALID FOR* Acute pancreatitis [K85.90] INVALID FOR*12/23/2017 Obesity, Class III, BMI >= 40 E66.01 [E66.01] INVALID FOR* Anemia [D64.9] INVALID FOR*12/23/2017 Visit Notes: >> Mago Rebolledo Ma December 30, 2017 1:40 PM Status: Signed Transitional Care Management Progress Note The patients TCM visit was performed within the 7 days of discharge. Patient's Date of discharge: 12/23/2017 Date of initial coordinator contact after discharge: 12/24/2017 Discharge diagnosis: Pancreatitis Medication review completed Yes Mago Rebolledo Ma Disposition: Return in about 3 months (around 04/01/2018). Follow-up and Disposition History Recorded Encounter Status:Closed by DAY KAYLA ARNOLD on 01/05/18 PROGRESS Observed: 12/29/2017 Status: COMPLETED Source: [place] 4:49 PM [facility] [place] REPOSITORY HNO ID: [id number] Author: Deion Pardo Service: (none) Author Type: Physician Type: Progress Notes Filed: 12/30/2017 8:08 AM Note Text: PATIENT NAME: Hang Meza. CLINIC NO: [id number]. ATTENDING PHYSICIAN: Deion Pardo MD. DATE OF SERVICE:12/29/2017. ? DIAGNOSIS: anemia of chronic disease and thrombocytopenia secondary to cirrhosis. Stage III chronic renal failure ? ? HPI: ?this is a 77-year-old gentleman with history of chronic anemia who presented to [facility] because of a recent fall and loss of consciousness. He has a chronic anemia for many years, but beginning last fall his hemoglobin has been dropping rapidly. GI workup including EGD and colonoscopy showed?no source of bleeding or pathology. A benign polyp was removed from his colon, and?there were no evidence of esophageal varices. ? He saw?Dr. Hodges (hepatology) last month for chronic liver disease, and cirrhosis. Patient has history of fatty liver disease, but no review his liver biopsy. he denied jaundice or any evidence of ascites. he had previous endoscopy colonoscopy last year here with Dr. Jones. He also saw?Dr. Ball (nephrology) for chronic renal failure.?Aldactone decreased to once daily. Increased iron supplement once daily for anemia. He also has history of thrombocytopenia, without any bleeding issues. he denied rectal bleeding, melena, hematuria or hemoptysis. ? Patient has no history of alcohol use, or viral hepatitis. ?Patient has been feeling more tired in the last 4-6 weeks. He has dyspnea with exertion, but no chest pain or palpitation. He denied dizziness or lightheadedness. No increased lethargy or frequent headaches. He has fallen one time in the last 3 months. +cold intolerance, no restless legs symptoms. Patient denied jaundice or dark urine or yarelis colored stool. Complain of frequent urination at night which keep him up. ?He also noted increase in edema. ?He denied change in weight or decreased appetite. He is a and was once. He is not sexually active. no family history of cancer or anemia, son with HIV. ? interim history: Patient did receive 2 unit blood transfusion last week at [place] because of a bleeding polyps. he has no nausea vomiting, hematemesis or melena.. His stool as dark , because of his oral iron supplements. he denies severe fatigue, shortness of breath, and generalized weakness after blood transfusion. He has no jaundice, increased lethargy or mental status changes. ? All medications AND allergies updated and reviewed by me. ? REVIEW OF SYSTEMS: ? CONSTITUTIONAL: ?No fevers, chills, nightsweats, unintended weight loss fatigue HEENT: ?Denies frequent or severe heaches, nasal congestion/sinus symptoms, problematic allergy problems. EYES: ?No diplopia or blurry vision. CARDIOVASCULAR: ?No chest pain, dyspnea with exertion, palpitations, orthopnea, PND, + ankle edema. PULM: ?No dyspnea at rest, unexplained cough. GI: ?No dysphagia/odynophagia, problematic reflux, constipation, diarrhea, changes in stool habits, hematochezia, melena. : ?No new urinary complaints, including dysuria, gross hematuria or pyuria. NEURO: ?No new balance problems, peripheral weakness/paresthesias or numbness of concern. MUSC-SKEL: ?No new joint pain, swelling, or erythema. PSY: ?No concerns regarding depression, anxiety or panic. INTEGUMENTARY: ?No new skin changes (rash, new or changing mole, new growth) ? PHYSICAL EXAMINATION: 77-year-old well-nourished well-developed gentleman in no Distress. BP 120/57 Pulse 69 Temp (Src) 99 (Oral) Wt 284 lb (128.8kg) HEENT: Head is normocephalic, atraumatic. Sclerae white, conjunctivae pink. PEERL. EOMs are intact. Oropharynx is benign.Complexion pale. LYMPHATICS: There is no palpable adenopathy in the neck, supraclavicular region, axillae, or groin. LUNGS: Lungs are clear to percussion and auscultation. diminished breath sounds at bases HEART: Heart is normal + grade 2/6 systolic?murmurs, no gallops, or rubs. ABDOMEN: obese, Soft and nontender without organomegaly. No masses or ascites. EXTREMITIES: Are +trace?edema. NEUROLOGIC: Exam is physiologic ? LABORATORY DATA: Component Latest Ref Rng AND Units 12/23/2017 12/29/2017 WBC 3.70 - 11.00 k/uL 3.92 RBC 4.20 - 6.00 m/uL 2.67 (L) Hemoglobin 13.0 - 17.0 g/dL 8.8 (L) Hematocrit 39.0 - 51.0 % 28.2 (L) MCV 80.0 - 100.0 fL 105.6 (H) MCH 26.0 - 34.0 pG 33.0 MCHC 30.5 - 36.0 g/dL 31.2 RDW-CV 11.5 - 15.0 % 20.1 (H) Platelet Count 150 - 400 k/uL 64 (L) MPV 9.0 - 12.7 fL 12.3 Hemoglobin, [place] 13.0 - 17.0 g/dL 9.2 (L) Hematocrit, [place] 39.0 - 51.0 % 29.4 (L) Component Latest Ref Rng AND Units 12/29/2017 Iron 41 - 186 ug/dL 237 (H) TIBC 232 - 386 ug/dL 357 Transferrin Saturation 15 - 57 % 66 (H) ASSESSMENT: ?77-year-old gentleman with anemia of chronic disease, stage 3?renal failure, 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 ? PLAN: - follow-up with GI next week with Dr. Hodges for GI bleeding and cirrhosis. - Resume Aranesp injection for anemia chronic disease every 14 days for hemoglobin less than 10 gm/dl AND monitor HANDH every 14 days. - Repeat CBC, CMP and iron study OV in 3 months. Deion Pardo MD Cc: Dr. Felipe Bernstein CNP CNOVSP Observed: 12/29/2017 Status: COMPLETED Source: [place] 4:40 PM [facility] REPOSITORY Visit (SP) Office (HEMAWS) HANG MEZA ([id number]) 1940 M Date Time Provider Department 12/29/17 4:40 PM DEION PARDO ALBERT During your visit today, we recorded the following information about you: Temperature Pulse Blood pressure Weight 99 degrees 69/minute 120/57 128.8 kg Deion Pardo 12/30/2017 8:08 AM Signed PATIENT NAME: Hang Meza. CLINIC NO: [id number]. ATTENDING PHYSICIAN: Deion Pardo MD. DATE OF SERVICE:12/29/2017. ? DIAGNOSIS: anemia of chronic disease and thrombocytopenia secondary to cirrhosis. Stage III chronic renal failure ? ? HPI: ?this is a 77-year-old gentleman with history of chronic anemia who presented to [facility] because of a recent fall and loss of consciousness. He has a chronic anemia for many years, but beginning last fall his hemoglobin has been dropping rapidly. GI workup including EGD and colonoscopy showed?no source of bleeding or pathology. A benign polyp was removed from his colon, and?there were no evidence of esophageal varices. ? He saw?Dr. Hodges (hepatology) last month for chronic liver disease, and cirrhosis. Patient has history of fatty liver disease, but no review his liver biopsy. he denied jaundice or any evidence of ascites. he had previous endoscopy colonoscopy last year here with Dr. Jones. He also saw?Dr. Ball (nephrology) for chronic renal failure.?Aldactone decreased to once daily. Increased iron supplement once daily for anemia. He also has history of thrombocytopenia, without any bleeding issues. he denied rectal bleeding, melena, hematuria or hemoptysis. ? Patient has no history of alcohol use, or viral hepatitis. ?Patient has been feeling more tired in the last 4-6 weeks. He has dyspnea with exertion, but no chest pain or palpitation. He denied dizziness or lightheadedness. No increased lethargy or frequent headaches. He has fallen one time in the last 3 months. +cold intolerance, no restless legs symptoms. Patient denied jaundice or dark urine or yarelis colored stool. Complain of frequent urination at night which keep him up. ?He also noted increase in edema. ?He denied change in weight or decreased appetite. He is a and was once. He is not sexually active. no family history of cancer or anemia, son with HIV. ? interim history: Patient did receive 2 unit blood transfusion last week at [place] because of a bleeding polyps. he has no nausea vomiting, hematemesis or melena.. His stool as dark , because of his oral iron supplements. he denies severe fatigue, shortness of breath, and generalized weakness after blood transfusion. He has no jaundice, increased lethargy or mental status changes. ? All medications AND allergies updated and reviewed by me. ? REVIEW OF SYSTEMS: ? CONSTITUTIONAL: ?No fevers, chills, nightsweats, unintended weight loss fatigue HEENT: ?Denies frequent or severe heaches, nasal congestion/sinus symptoms, problematic allergy problems. EYES: ?No diplopia or blurry vision. CARDIOVASCULAR: ?No chest pain, dyspnea with exertion, palpitations, orthopnea, PND, + ankle edema. PULM: ?No dyspnea at rest, unexplained cough. GI: ?No dysphagia/odynophagia, problematic reflux, constipation, diarrhea, changes in stool habits, hematochezia, melena. : ?No new urinary complaints, including dysuria, gross hematuria or pyuria. NEURO: ?No new balance problems, peripheral weakness/paresthesias or numbness of concern. MUSC-SKEL: ?No new joint pain, swelling, or erythema. PSY: ?No concerns regarding depression, anxiety or panic. INTEGUMENTARY: ?No new skin changes (rash, new or changing mole, new growth) ? PHYSICAL EXAMINATION: 77-year-old well-nourished well-developed gentleman in no Distress. BP 120/57 Pulse 69 Temp (Src) 99 (Oral) Wt 284 lb (128.8kg) HEENT: Head is normocephalic, atraumatic. Sclerae white, conjunctivae pink. PEERL. EOMs are intact. Oropharynx is benign.Complexion pale. LYMPHATICS: There is no palpable adenopathy in the neck, supraclavicular region, axillae, or groin. LUNGS: Lungs are clear to percussion and auscultation. diminished breath sounds at bases HEART: Heart is normal + grade 2/6 systolic?murmurs, no gallops, or rubs. ABDOMEN: obese, Soft and nontender without organomegaly. No masses or ascites. EXTREMITIES: Are +trace?edema. NEUROLOGIC: Exam is physiologic ? LABORATORY DATA: Component Latest Ref Rng AND Units 12/23/2017 12/29/2017 WBC 3.70 - 11.00 k/uL 3.92 RBC 4.20 - 6.00 m/uL 2.67 (L) Hemoglobin 13.0 - 17.0 g/dL 8.8 (L) Hematocrit 39.0 - 51.0 % 28.2 (L) MCV 80.0 - 100.0 fL 105.6 (H) MCH 26.0 - 34.0 pG 33.0 MCHC 30.5 - 36.0 g/dL 31.2 RDW-CV 11.5 - 15.0 % 20.1 (H) Platelet Count 150 - 400 k/uL 64 (L) MPV 9.0 - 12.7 fL 12.3 Hemoglobin, [place] 13.0 - 17.0 g/dL 9.2 (L) Hematocrit, [place] 39.0 - 51.0 % 29.4 (L) Component Latest Ref Rng AND Units 12/29/2017 Iron 41 - 186 ug/dL 237 (H) TIBC 232 - 386 ug/dL 357 Transferrin Saturation 15 - 57 % 66 (H) ASSESSMENT: ?77-year-old gentleman with anemia of chronic disease, stage 3?renal failure, 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 ? PLAN: - follow-up with GI next week with Dr. Hodges for GI bleeding and cirrhosis. - Resume Aranesp injection for anemia chronic disease every 14 days for hemoglobin less than 10 gm/dl AND monitor HANDH every 14 days. - Repeat CBC, CMP and iron study OV in 3 months. Deion Pardo MD Cc: Dr. Felipe Bernstein CNP Referring Provider: KAYLA BERNSTEIN (HARNESS INSTALLER) [[id number]] Allergies As of Date: 12/29/2017 (No Known Allergies) Date Reviewed: 12/29/2017 Reviewed by: Sienna Marques Ma - Fully Assessed Reason for Visit: Established Patient [175] Primary Visit Diagnosis:Thrombocytopenia (HCC) [D69.6] Other Visit Diagnoses:Other cirrhosis of liver (HCC) [K74.69] Anemia, chronic renal failure, stage 3 (moderate) [N18.3, D63.1] Order(s):IRON + TIBC [SQIRON] Order #: [id number] FUTURE Level of Service: EST PATIENT VISIT LEVEL 3 [[id number]] Disposition: Return in about 3 months (around 03/31/2018). Follow-up and Disposition History Recorded Prescriptions as of 12/29/2017 Sig: PANTOPRAZOLE 40 MG TABLET,DEL* Take 1 tablet by mouth twice * SIMVASTATIN 20 MG TABLET Take 1 tablet by mouth once d* SUCRALFATE 1 GRAM TABLET Take 1 tablet by mouth four t* INSULIN LISPRO 100 UNIT/ML JAIMES* 12 u with breakfast, 22 u wit* FERROUS SULFATE 325 MG (65 MG* Take 1 tablet by mouth daily * GLIPIZIDE 5 MG TABLET Take 1 tablet by mouth daily * LEVOTHYROXINE 25 MCG TABLET Take 1 tablet by mouth once d* SPIRONOLACTONE 50 MG TABLET Take 1 tablet by mouth once d* METOPROLOL TARTRATE 25 MG TAB* Take 1 tablet by mouth twice * METAMUCIL ORAL Take by mouth once daily. LORATADINE 10 MG TABLET Take 10 mg by mouth once lilian* ASPIRIN 81 MG TABLET,DELAYED * Take 81 mg by mouth once lilian* DESOXIMETASONE 0.25 % TOPICAL* Apply thin layer twice daily INSULIN GLARGINE (U-100) 100 * Inject 25 Units subcutaneousl* LANCETS 28 GAUGE Test blood glucose 4 times da* BLOOD SUGAR DIAGNOSTIC STRIPS Test blood glucose 4 times da* PEN NEEDLE, DIABETIC 31 GAUGE* USE WITH INSULIN PENS 4 TIMES* METHYLCELLULOSE (LAXATIVE) 50* Take 500 mg by mouth DAILY. MICONAZOLE NITRATE 2 % TOPICA* Apply 1 application to affect* MECLIZINE 25 MG TABLET Take 1 tablet by mouth three * LACTULOSE 10 GRAM/15 ML ORAL * Take 30 mL by mouth once lilian* RIFAXIMIN 550 MG TABLET Take 1 tablet by mouth twice * Medication notes this encounter LACTULOSE 10 GRAM/15 ML ORAL SOLUTION >> Sienna Marques Ma 12/29/2017 4:34 PM >> SIENNA MARQUES MA FriDecember 29, 2017 4:34 PM Taking 15 ML twice daily. Problem List As Of Date 12/29/2017 Noted Resolved Viral gastroenteritis [A08.4] INVALID FOR*09/06/2014 Dehydration [E86.0] INVALID FOR*09/06/2014 Hypothyroidism [E03.9] GERD (gastroesophageal reflux disease) [K21.9] Renal disorder [N28.9] More... 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 History of colonic polyps [Z86.010] INVALID FOR* More... Morbid obesity (HCC) [E66.01] INVALID FOR* Anemia, chronic renal failure, stage 3 (moderat*INVALID FOR* Acute pancreatitis [K85.90] INVALID FOR*12/23/2017 Obesity, Class III, BMI >= 40 E66.01 [E66.01] INVALID FOR* Anemia [D64.9] INVALID FOR*12/23/2017 Encounter Status:Closed by DEION PARDO MD on 12/30/17 RENITA HEMATOCRIT Collected: 12/29/2017 Status: F Source: [place] 4:27 PM [facility] REPOSITORY TYPE CODE TESTS RESULT OUT OF REFERENCE UNITS RANGE LAB WHCT 39.0-51.0 % Low [place] Hematocrit 29.4 Result Comment: Test performed at: [address] [place] [address]. RENITA HEMOGLOBIN Collected: 12/29/2017 Status: F Source: [place] 4:27 PM [facility] REPOSITORY TYPE CODE TESTS RESULT OUT OF REFERENCE UNITS RANGE LAB WHGB 13.0-17.0 g/dL Low [place] Hemoglobin 9.2 Result Comment: Test performed at: [address] [place] [address]. IRON AND TIBC Collected: 12/29/2017 Status: F Source: [place] 4:26 PM [facility] REPOSITORY TYPE CODE TESTS RESULT OUT OF REFERENCE UNITS RANGE LAB IRN 41-186 ug/dL [place] High 237 LAB TIBC 232-386 ug/dL TIBC 357 LAB SAT 15-57 % Transferrin High Saturatn 66 Performed By: #### IRON #### [facility] [address] [place], [place] [address] PROGRESS Observed: 12/25/2017 Status: COMPLETED Source: [place] 4:41 PM [facility] REPOSITORY HNO ID: [id number] Author: Ca Silva Service: (none) Author Type: Registered Nurse Type: Progress Notes Filed: 12/25/2017 4:47 PM Note Text: Left detailed VM for pt.'s daughter. --Home BARBERING TEACHER program not currently available in [place]. --Keep appt. 12/30/17 with Kayla Bernstein CNP Contact pcc with any issues/concerns prior to appt. 12 LEAD ELECTROCARDIOGRAM Observed: 12/24/2017 Status: F Source: [place] 6:09 PM [facility] REPOSITORY [facility] Cardiovascular Services [address] [place] [address] 12 Lead EKG 12/19/177 MR#: [id number] Acct: [id number] Name: HANG MEZA Rep #: [id number] : 1940 77 From: Ronald Bardales MD Attending Dr: Status: DEP ER Ordering Dr: Taqueria Charles DO Date: 12/19/17 Location: ED Sex: M C Admitted: Test Reason : SOB Blood Pressure : / mmHG Vent. Rate : 077 BPM Atrial Rate : 077 BPM P-R Int : 174 ms QRS Dur : 090 ms QT Int : 370 ms P-R-T Axes : 041 039 046 degrees QTc Int : 418 ms Normal sinus rhythm Normal ECG Confirmed by RONALD BARDALES ([id number]), news copy editor ANGIE ORTEGA ([id number]) on 12/23/2017 3:58:17 PM Referred By: AUDRA Confirmed By:RONALD BARDALES 12/23/17 1558 Date Ronald Bardales MD CC: Kayla Bernstein; Taqueria Charles DO Signed PROGRESS Observed: 12/24/2017 Status: COMPLETED Source: [place] 8:47 AM [facility] [place] REPOSITORY HNO ID: [id number] Author: Ca Silva Service: (none) Author Type: Registered Nurse Type: Progress Notes Filed: 12/25/2017 4:47 PM Note Text: TCM Home Visit Referral Please contact daughter Addie at [phone] to schedule (after 3:30 today) Patient transitioned from acute facility: Patient qualifies for High Risk TCM Home Visit. Discussed High Risk TCM Home Visit Program with patient: Patient - Accepts program: Transitional Nurse Practitioner - PSR please contact patient to schedule accordingly. TRANSITION CARE MANAGEMENT (TCM) INITIAL CONTACT Provider Action/FYI: TCM Hospital discharge 12/23/17 [facility] Dx: pancreatitis F/u with Kayla Bernstein CNP 12/23/17 Discussed BARBERING TEACHER home visit program -- daughter agreeable. Referral placed. 1. Pancreatitis unclear etiology -- possibly medication induced--lasix d/c'd --monitor closely 12/20 Lipase >600 12/23 30 2. 4 Hgb 6.4-- received 2 u pRBC 12/23 8.8 EGD -- recent bleeding from gastric polyps Protonix increased to 40 mg twice daily F/u with GI in two weeks recommended: Scheduled with Dr. Hogdes 01/07/18 --Outpatient [facility] further evaluate anemia ? - Consider repeat EGD to investigate recurrent anemia w/ hx of gastric polyps Initial contact with patient post discharge, spoke to Addie. Patient identified by name and . SUMMARY: -Pt discharged from [facility] on 12/23/17. -Follow up appointment on 12/30/17. -Medication review done daughter declines--not at home. States nothing has changed except increase in protonix and lasix on hold for now. -Admitted for: pancreatitis CONCERNS: Daughter states pt. is doing okay. Experiencing muscle cramps and fatigue from being bedridden during admission. Tolerating diet: NEW MEDICATIONS: N/A CONTINUE these medications which have CHANGED Protonix 40 mg twice daily 30 minutes before meals MEDS HELD/DISCONTINUED: Lasix 40 mg BRIEF HOSPITAL COURSE: Copied from d/c summary: Patient was admitted with abdominal pain and elevated lipase consistent with acute pancreatitis. His pain improved with treatment but his hemoglobin dropped. He received a blood transfusion and had an EGD which showed recent bleeding from gastric polyps. He did well with double dose ppi therapy and carafate. His acute pancreatitis was possibly medication induced and we will DC his lasix for now and monitor closely. CNPTOUTRRAZIA Observed: 12/24/2017 Status: COMPLETED Source: [place] 12:00 AM [facility] REPOSITORY Patient Outreach (INTMBR) HANG MEZA ([id number]) 1940 M Date Time Provider Department 12/24/17 [facility] SILVA INTMBR During your visit today, we recorded the following information about you: Ca Sivla 12/25/2017 4:47 PM Signed TCM Home Visit Referral Please contact daughter Addie at [phone] to schedule (after 3:30 today) Patient transitioned from acute facility: Patient qualifies for High Risk TCM Home Visit. Discussed High Risk TCM Home Visit Program with patient: Patient - Accepts program: Transitional Nurse Practitioner - PSR please contact patient to schedule accordingly. TRANSITION CARE MANAGEMENT (TCM) INITIAL CONTACT Provider Action/FYI: TCM Hospital discharge 12/23/17 [facility] Dx: pancreatitis F/u with Kayla Bernstein CNP 12/23/17 Discussed BARBERING TEACHER home visit program -- daughter agreeable. Referral placed. 1. Pancreatitis unclear etiology -- possibly medication induced--lasix d/c'd --monitor closely 12/20 Lipase >600 12/23 30 2. 12/20 Hgb 6.4-- received 2 u pRBC 12/23 8.8 EGD -- recent bleeding from gastric polyps Protonix increased to 40 mg twice daily F/u with GI in two weeks recommended: Scheduled with Dr. Hogdes 01/07/18 --Outpatient [facility]BC[facility] further evaluate anemia ? - Consider repeat EGD to investigate recurrent anemia w/ hx of gastric polyps Initial contact with patient post discharge, spoke to Addie. Patient identified by name and . SUMMARY: -Pt discharged from [facility] on 12/23/17. -Follow up appointment on 12/30/17. -Medication review done daughter declines--not at home. States nothing has changed except increase in protonix and lasix on hold for now. -Admitted for: pancreatitis CONCERNS: Daughter states pt. is doing okay. Experiencing muscle cramps and fatigue from being bedridden during admission. Tolerating diet: NEW MEDICATIONS: N/A CONTINUE these medications which have CHANGED Protonix 40 mg twice daily 30 minutes before meals MEDS HELD/DISCONTINUED: Lasix 40 mg BRIEF HOSPITAL COURSE: Copied from d/c summary: Patient was admitted with abdominal pain and elevated lipase consistent with acute pancreatitis. His pain improved with treatment but his hemoglobin dropped. He received a blood transfusion and had an EGD which showed recent bleeding from gastric polyps. He did well with double dose ppi therapy and carafate. His acute pancreatitis was possibly medication induced and we will DC his lasix for now and monitor closely. Ca Silva 12/25/2017 4:47 PM Signed Left detailed VM for pt.'s daughter. --Home BARBERING TEACHER program not currently available in [place]. --Keep appt. 12/30/17 with Kayla Bernstein CNP Contact pcc with any issues/concerns prior to appt. Allergies As of Date: 12/24/2017 (No Known Allergies) Date Reviewed: 12/23/2017 Reviewed by: Marcia Fuentes (Rn), RN - Fully Assessed Reason for Visit: [facility] Follow Up [[id number]] Cmt: SANDRO [facility] D/c 12/23/17 Dx: pancreatitis Reason For Visit History Recorded Prescriptions as of 12/24/2017 Sig: PANTOPRAZOLE 40 MG TABLET,DEL* Take 1 tablet by mouth twice * SIMVASTATIN 20 MG TABLET Take 1 tablet by mouth once d* SUCRALFATE 1 GRAM TABLET Take 1 tablet by mouth four t* INSULIN LISPRO 100 UNIT/ML JAIMES* 12 u with breakfast, 22 u wit* FERROUS SULFATE 325 MG (65 MG* Take 1 tablet by mouth daily * GLIPIZIDE 5 MG TABLET Take 1 tablet by mouth daily * LEVOTHYROXINE 25 MCG TABLET Take 1 tablet by mouth once d* SPIRONOLACTONE 50 MG TABLET Take 1 tablet by mouth once d* METOPROLOL TARTRATE 25 MG TAB* Take 1 tablet by mouth twice * METAMUCIL ORAL Take by mouth once daily. LORATADINE 10 MG TABLET Take 10 mg by mouth once lilian* ASPIRIN 81 MG TABLET,DELAYED * Take 81 mg by mouth once lilian* DESOXIMETASONE 0.25 % TOPICAL* Apply thin layer twice daily INSULIN GLARGINE (U-100) 100 * Inject 25 Units subcutaneousl* LANCETS 28 GAUGE Test blood glucose 4 times da* BLOOD SUGAR DIAGNOSTIC STRIPS Test blood glucose 4 times da* PEN NEEDLE, DIABETIC 31 GAUGE* USE WITH INSULIN PENS 4 TIMES* METHYLCELLULOSE (LAXATIVE) 50* Take 500 mg by mouth DAILY. MICONAZOLE NITRATE 2 % TOPICA* Apply 1 application to affect* MECLIZINE 25 MG TABLET Take 1 tablet by mouth three * LACTULOSE 10 GRAM/15 ML ORAL * Take 30 mL by mouth once lilian* RIFAXIMIN 550 MG TABLET Take 1 tablet by mouth twice * Problem List As Of Date 12/24/2017 Noted Resolved Viral gastroenteritis [A08.4] INVALID FOR*09/06/2014 Dehydration [E86.0] INVALID FOR*09/06/2014 Hypothyroidism [E03.9] GERD (gastroesophageal reflux disease) [K21.9] Renal disorder [N28.9] More... 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 History of colonic polyps [Z86.010] INVALID FOR* More... Morbid obesity (HCC) [E66.01] INVALID FOR* Anemia, chronic renal failure, stage 3 (moderat*INVALID FOR* Acute pancreatitis [K85.90] INVALID FOR*12/23/2017 Obesity, Class III, BMI >= 40 E66.01 [E66.01] INVALID FOR* Anemia [D64.9] INVALID FOR*12/23/2017 Encounter Status:Closed by CA SILVA on 12/25/17 CASE MANAGEM Observed: 12/23/2017 Status: COMPLETED Source: [place] 3:49 PM CLINIC OTHER CAMPUS REPOSITORY HNO ID: [id number] Author: Keila (Anand) ANAND Caballero Service: Case Management Author Type: Registered Nurse Type: Care Mgt Progress Note Filed: 12/23/2017 4:23 PM Note Text: CARE MANAGEMENT DISCHARGE NOTE SERVICE DATE: 12/23/2017 SERVICE TIME: 3:49 PM LOS: 3 days Admission Date: 12/20/2017 DISCHARGE ARRANGEMENT (list agency and phone number) Home Provider: aniya Phone: na CAREGIVER ASSESSMENT: Caregiver is ready, willing and able to meet the patient's needs as recommended by the inter-professional team? Yes Patient's transition needs and plan for meeting these needs: Discharge home with daughter Does the patient have an acute stroke diagnosis, or has the patient had a stroke during this admission? No HANDOFF COMMUNICATION: Primary Care Physician: Kayla Bernstein NP TRANSPORTATION ARRANGEMENTS: Car Family will transport ADDITIONAL CONTACT RESOURCES: aniya Discharge Information Row Name Admission (Current) from 12/20/2017 in [facility] Medical Follow-Up Appointment Specialty pcp Provider Name Kayla Bernstein APRN.[facility] Address [address] [place] [address] Appointment Date 12/30/17 Appointment Time 1100am Additonal Instructions Patient should bring the following to appointment: Picture ID, Insurance Card, Copay (if applicable), Medications/Med List. Please provide a minimum of 24 hours' notice for cancelations/rescheduling. Needs Prior to Discharge: Ready for Discharge Discharge order written for today, patient discharged home with daughter. Patient and family agree with discharge plan. SIGNATURE: Keila Caballero RN PATIENT NAME: Hang Meza DATE: December 23, 2017 TIME: 3:49 PM PAGER/CONTACT #: [phone] CNDS Observed: 12/23/2017 Status: COMPLETED Source: [place] 2:36 PM CLINIC OTHER CAMPUS REPOSITORY HNO ID: [id number] Author: Beata Hutson) Km Service: General Internal Medicine Author Type: Physician Type: Discharge Summaries Filed: 12/23/2017 2:40 PM Note Text: DISCHARGE SUMMARY PATIENT NAME: Hang Meza ADMISSION DATE: 12/20/2017 DISCHARGE DATE: 12/23/2017 ATTENDING PHYSICIAN: Beata Barbour) REASON FOR HOSPITALIZATION: acute pancreatitis DIAGNOSIS: Principal Problem (Resolved): Acute pancreatitis Active Problems: Hypothyroidism GERD (gastroesophageal reflux disease) Aortic valve stenosis, mild Cirrhosis (HCC) Essential hypertension Mixed hyperlipidemia Uncontrolled type 2 diabetes mellitus with stage 3 chronic kidney disease, with long-term current use of insulin (HCC) Morbid obesity (HCC) Obesity, Class III, BMI >= 40 E66.01 Resolved Problems: Anemia OPERATIONS DURING HOSPITALIZATION: None PROCEDURES DURING HOSPITALIZATION: EGD HOSPITAL COURSE: Patient was admitted with abdominal pain and elevated lipase consistent with acute pancreatitis. His pain improved with treatment but his hemoglobin dropped. He received a blood transfusion and had an EGD which showed recent bleeding from gastric polyps. He did well with double dose ppi therapy and carafate. His acute pancreatitis was possibly medication induced and we will DC his lasix for now and monitor closely. LABS AND PROCEDURES PENDING AT DISCHARGE: No pending results. CONSULTING TEAMS DURING HOSPITALIZATION: Gastroenterology: Dr Rodrigues PATIENT CONDITION AT DISCHARGE: Fair DISCHARGE DISPOSITION: Home/Self Care Discharge Physical Exam: VITAL SIGNS: BP (!) 135/45 Pulse 60 Temp 37 ?C (98.6 ?F) (Oral) Resp 18 Ht 175.3 cm (5' 9) Wt 129.3 kg (285 lb) SpO2 98% BMI 42.09 kg/m? GENERAL: Alert, no distress, cooperative SKIN: Skin color, texture, turgor normal. No rashes or lesions. LUNGS: Lungs clear to auscultation, Good diaphragmatic excursion CARDIAC: Normal S1 and S2; no rubs, murmurs, or gallops ABDOMEN: Abdomen soft, non-tender, BS normal, No masses or organomegaly EXTREMITIES: Extremities normal, no deformities, edema, clubbing or skin discoloration. INFORMATION PROVIDED TO PATIENT: (To pull info documented from the DC Instruct Orderset Complete O/S First): Smoking Cessation Material Given DISCHARGE MEDICATION: Current Discharge Medication List CONTINUE these medications which have CHANGED pantoprazole DR (PROTONIX) 40 mg Take 40 mg by mouth twice daily. 30 minutes before eating. Qty: 60 tablet Refills: 1 CONTINUE these medications which have NOT CHANGED simvastatin (ZOCOR) 20 mg Take 20 mg by mouth once daily. Qty: 30 tablet Refills: 3 sucralfate (CARAFATE) 1 g Take 1 g by mouth four times daily. Qty: 120 tablet Refills: 5 ferrous sulfate 325 mg Take 325 mg by mouth daily with breakfast. Qty: 30 tablet Refills: 5 glipiZIDE (GLUCOTROL) 5 mg Take 5 mg by mouth daily before breakfast. Qty: 90 tablet Refills: 3 Associated Diagnoses:Uncontrolled type 2 diabetes mellitus without complication, with long-term current use of insulin ([facility]) levothyroxine (SYNTHROID) 25 mcg Take 25 mcg by mouth once daily. Qty: 30 tablet Refills: 3 spironolactone (ALDACTONE) 50 mg Take 50 mg by mouth once daily. metoprolol tartrate (short acting) (LOPRESSOR) 25 mg Take 25 mg by mouth twice daily. Qty: 180 tablet Refills: 3 aspirin, enteric coated (ASPIRIN, ENTERIC COATED) 81 mg Take 81 mg by mouth once daily. as needed lactulose (DUPHALAC, CONSTULOSE) 20 g Take 20 g by mouth once daily. Qty: 1000 mL Refills: 11 rifAXIMin (XIFAXAN) 550 mg Take 550 mg by mouth twice daily. Qty: 60 tablet Refills: 11 insulin lispro (HUMALOG KWIKPEN) 100 unit/mL pen 12 u with breakfast, 22 u with lunch, 15 u with dinner plus 2 u per 50 > 150 TDD 90 units Qty: 10 Pen Refills: 11 Associated Diagnoses:Uncontrolled type 2 diabetes mellitus with stage 3 chronic kidney disease, with long-term current use of insulin ([facility]) PSYLLIUM HUSK (METAMUCIL ORAL) Take by mouth once daily. loratadine (CLARITIN) 10 mg Take 10 mg by mouth once daily. as needed desoximetasone (TOPICORT) 0.25 % cream Apply thin layer twice daily Qty: 60 g Refills: 1 insulin glargine (LANTUS SOLOSTAR, BASAGLAR) 25 Units Inject 25 Units subcutaneously twice daily. Qty: 45 mL Refills: 3 Associated Diagnoses:Uncontrolled type 2 diabetes mellitus with stage 3 chronic kidney disease, with long-term current use of insulin ([facility]) lancets (FREESTYLE LANCETS) 28 gauge misc Test blood glucose 4 times daily Qty: 400 Each Refills: 3 Comments: Use for blood glucose check 4 times a day Associated Diagnoses:Uncontrolled type 2 diabetes mellitus without complication, with long-term current use of insulin ([facility]) blood sugar diagnostic (FREESTYLE TEST) test strip Test blood glucose 4 times daily Qty: 400 Strip Refills: 3 Associated Diagnoses:Uncontrolled type 2 diabetes mellitus without complication, with long-term current use of insulin (HCC) Insulin [place], Disposable, (BD ULTRAFINE III MINI PEN) 31 gauge x 3/16 ndle USE WITH INSULIN PENS 4 TIMES DAILY Qty: 400 Each Refills: 3 Associated Diagnoses:Uncontrolled type 2 diabetes mellitus without complication, with long-term current use of insulin (HCC) Methylcellulose (Laxative) 500 mg Take 500 mg by mouth Daily. miconazole (LOTRIMIN AF, DESENEX) 1 application Apply 1 application to affected area twice daily. Qty: 50 g Refills: 0 meclizine (ANTIVERT) 25 mg Take 25 mg by mouth three times daily as needed. Qty: 20 tablet Refills: 0 STOP taking these medications furosemide (LASIX) 40 mg Comments: Reason for Stopping: FUTURE APPOINTMENTS: Follow Up with PCP: Kayla Bernstein ([employer] Director) TIME OF CARE (Use first blank if not applicable): TIME OF CARE: Discharge Management: I personally spent greater than 30 minutes involved in the discharge management of this patient. SIGNATURE: Beata Barbour MD PATIENT NAME: Hang Meza DATE: December 23, 2017 TIME: 2:36 PM PAGER/CONTACT #: [phone] ANES POST Observed: 12/23/2017 Status: COMPLETED Source: [place] 1:33 PM [facility] REPOSITORY O ID: [id number] Author: Verona Nieves Service: Anesthesiology Author Type: Anesthesiologist Type: Anesthesia PostOp Filed: 12/23/2017 1:34 PM Note Text: POST ANESTHESIA EVALUATION NOTE SERVICE DATE: 12/23/2017 SERVICE TIME: 1:33 PM : 1940 Vitals: 12/22/17 2344 12/23/17 0728 12/23/17 1145 12/23/17 1309 Temp: 36.7 ?C (98.1 ?F) 36.6 ?C (97.9 ?F) 36.4 ?C (97.5 ?F) 37 ?C (98.6 ?F) 12/23/17 1220 12/23/17 1230 12/23/17 1245 12/23/17 1309 BP: 122/58 (!) 102/45 128/59 (!) 135/45 12/23/17 1220 12/23/17 1230 12/23/17 1245 12/23/17 1309 Pulse: 64 (!) 59 (!) 58 60 12/23/17 1220 12/23/17 1230 12/23/17 1245 12/23/17 1309 Resp: 16 16 16 18 12/23/17 1220 12/23/17 1230 12/23/17 1245 12/23/17 1309 SpO2: 95% 98% 99% 98% Validated Vital Signs: Yes POST ANES STATUS: No apparent anesthetic complications. The patient is appropriately hydrated with stable respiratory and cardiovascular status. Patient has safe and adequate airway control. The patient has appropriate pain relief and no significant post operative nausea or vomiting. The patient has achieved baseline mental status. Further assessment by Anesthesia Service: None Other Remarks: SIGNATURE: Verona Nieves MD PATIENT NAME: Hang Meza DATE: December 23, 2017 TIME: 1:33 PM PAGER/CONTACT #: [phone] SURGICAL PATHOLOGY Observed: 12/23/2017 Status: F Source: [place] 12:45 PM CLINIC OTHER CAMPUS REPOSITORY Specimen originated from [facility] Specimen #: [id number] Submitting Physician: IRENE RODRIGUES M.D. FINAL DIAGNOSIS 1. Duodenal polyp, biopsy (A) - Fragment of superficial intestinal mucosa with gastric foveolar epithelium and chronic inflammation. - Separate fragment of inflamed granulation tissue. - Negative for neoplasm. 2. Antral polyp, biopsy (B) - Hyperplastic polyp. - No morphologic evidence of Helicobacter pylori organisms. 3. Fundic gland polyp, biopsy (C) - Polypoid gastric mucosa with prominent thin-walled blood vessels. See comment. JDR/srj 12/24/2017 COMMENT 3. This benign vascular proliferaton may represent a capillary hemangioma or polypoid granulation tissue; there is no evidence of malignancy. JDR/srj 12/24/2017 Jason Ann M.D. (Electronic Signature) SPECIMEN SUBMITTED A: DUODENAL POLYP B: ANTRAL POLYP, BIOPSY C: FUNDIC GLAND POLYP CLINICAL DATA ANEMIA GROSS DESCRIPTION A. Received in formalin are two pieces of harrell, soft tissue aggregating to 0.4 x 0.1 x 0.1 cm. Totally submitted in one cassette. B. Received in formalin are two pieces of harrell, soft tissue aggregating to 0.6 x 0.1 x 0.1 cm. Totally submitted in one cassette. C. Received in formalin is one piece of harrell, soft tissue measuring 0.2 x 0.2 x 0.1 cm. Totally submitted in one cassette. Gross examination performed at [facility], [address] [place] [address] 12/23/2017 4:32:24 PM Date of Report: 12/24/2017 Date of Procedure: 12/23/2017 Date of Receipt: 12/23/2017 Submitted by: IRENE RODRIGUES M.D. Location: 3 S Diagnostic [place] [address]. Performed By: #### PATHS #### [place] [address] [phone] NURSING PROG Observed: 12/23/2017 Status: COMPLETED Source: [place] 10:06 AM [facility] REPOSITORY HNO ID: [id number] Author: Vane UlloaRn) ANAND Woodruff Service: Nursing Author Type: Registered Nurse Type: Nursing Progress Note Filed: 12/23/2017 10:06 AM Note Text: 0945 In ascu for preop observation Iv flushed without difficulty Family at bedside ANES PREOP Observed: 12/23/2017 Status: COMPLETED Source: [place] 10:01 AM [facility] REPOSITORY HNO ID: [id number] Author: Verona Nieves Service: Anesthesiology Author Type: Anesthesiologist Type: Anesthesia PreOp Filed: 12/23/2017 10:04 AM Note Text: ANESTHESIOLOGY DAY OF SURGERY NOTE SERVICE DATE: 12/23/2017 SERVICE TIME: 10:02 AM : 1940 Procedure(s) (LRB): EGD (N/A) Surgeon(s): Irene Rodrigues Estimated body mass index is 42.09 kg/m? as calculated from the following: Height as of this encounter: 175.3 cm (5' 9). Weight as of this encounter: 129.3 kg (285 lb). Most recent hematocrit and potassium results: HCT 28.2 12/23/2017 Potassium 4.5 12/23/2017 ANES DOS/PREOP NOTE: Vitals: 12/22/17 1924 12/22/17 2344 12/23/17 0728 12/23/17 0817 BP: (!) 105/45 (!) 106/42 124/55 Pulse: 66 64 (!) 51 66 Resp: Temp: 37.1 ?C (98.8 ?F) 36.7 ?C (98.1 ?F) 36.6 ?C (97.9 ?F) TempSrc: Oral Oral Oral SpO2: 95% 92% Weight: Height: ACTIVE PROBLEM LIST Hypothyroidism Gerd (Gastroesophageal Reflux Disease) Renal Disorder Bph (Benign Prostatic Hyperplasia) Thrombocytopenia (Hcc) Aortic Valve Stenosis, Mild Cirrhosis (Hcc) Ulcerative Esophagitis Dizziness Essential Hypertension Mixed Hyperlipidemia Uncontrolled 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 Chronic Kidney Disease, With Long-Term Current Use of Insulin (Hcc) Acquired Hypothyroidism Anemia of Chronic Illness History of Colonic Polyps Morbid Obesity (Hcc) Anemia, Chronic Renal Failure, Stage 3 (Moderate) Acute Pancreatitis Obesity, Class III, BMI >= 40 E66.01 Anemia 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 PAST SURGICAL HISTORY Procedure Laterality Date - COLONOSCOP W/ OR W/O BRSH SPEC 06/02/2017 2 year repeat/hard IV stick - COLONOSCOPY 2013 - EGD 2013, 08/08 - EGD W/O OR W/BRUSH/WASH 06/02/2017 EGD - KIDNEY SURGERY HX - PAST SURGICAL HISTORY OF 2013 umbilical hernia repair - PAST SURGICAL HISTORY OF prostate biopsy FAMILY HISTORY Problem Relation Age of Onset - Heart Father MA - Prostate Cancer Father - Diabetes Mother - Breast Cancer Sister - Heart Brother - prescott [OTHER] Brother Social History: Social History Substance Use Topics - Smoking status: Former Smoker Years: 10.00 Types: Cigars Quit date: 11/07/2002 - Smokeless tobacco: Never Used - Alcohol use No No current facility-administered medications on file prior to encounter. Current Outpatient Prescriptions on File Prior to Encounter: simvastatin (ZOCOR) 20 mg tablet Take 1 tablet by mouth once daily. sucralfate (CARAFATE) 1 gram tablet Take 1 tablet by mouth four times daily. ferrous sulfate 325 mg (65 mg iron) tablet Take 1 tablet by mouth daily with breakfast. glipiZIDE (GLUCOTROL) 5 mg tablet Take 1 tablet by mouth daily before breakfast. levothyroxine (SYNTHROID) 25 mcg tablet Take 1 tablet by mouth once daily. spironolactone (ALDACTONE) 50 mg tablet Take 1 tablet by mouth once daily. metoprolol tartrate, short acting, (LOPRESSOR) 25 mg tablet Take 1 tablet by mouth twice daily. pantoprazole DR (PROTONIX) 40 mg tablet Take 1 tablet by mouth once daily. 30 minutes before eating. aspirin, enteric coated (ASPIRIN, ENTERIC COATED) 81 mg EC tablet Take 81 mg by mouth once daily. as needed lactulose (ENULOSE) 10 gram/15 mL solution Take 30 mL by mouth once daily. rifaximin (XIFAXAN) 550 mg tab Take 1 tablet by mouth twice daily. insulin lispro (HUMALOG KWIKPEN) 100 unit/mL pen 12 u with breakfast, 22 u with lunch, 15 u with dinner plus 2 u per 50 > 150 TDD 90 units PSYLLIUM HUSK (METAMUCIL ORAL) Take by mouth once daily. loratadine (CLARITIN) 10 mg tablet Take 10 mg by mouth once daily. as needed desoximetasone (TOPICORT) 0.25 % cream Apply thin layer twice daily insulin glargine (LANTUS) 100 unit/mL (3 mL) inpn Inject 25 Units subcutaneously twice daily. lancets (FREESTYLE LANCETS) 28 gauge misc Test blood glucose 4 times daily blood sugar diagnostic (FREESTYLE TEST) test strip Test blood glucose 4 times daily Insulin [place], Disposable, (BD ULTRAFINE III MINI PEN) 31 gauge x /16 ndle USE WITH INSULIN PENS 4 TIMES DAILY furosemide (LASIX) 40 mg tablet Take 40 mg by mouth every other day. Methylcellulose, Laxative, (FIBER THERAPY) 500 mg tab Take 500 mg by mouth DAILY. miconazole (LOTRIMIN AF, DESENEX) 2 % powder Apply 1 application to affected area twice daily. meclizine (ANTIVERT) 25 mg tab Take 1 tablet by mouth three times daily as needed. Current Facility-Administered Medications: polyethylene glycol 3350 17 g packet (MIRALAX, GLYCOLAX) 17 g ORAL DAILY Beata Barbour) 17 g at 12/22/17 1424 senna-docusate 8.6-50 mg 1 tablet (SENNA-S) 1 tablet ORAL BID Beata Barbour) 1 tablet at 12/22/172041 NaCl 0.9% iv infusion 100 mL/hr INTRAVENOUS (PACU) CONTINUOUS Fabiana Saleem rifAXIMin 550 mg tab(s) (XIFAXAN) 550 mg ORAL BID Guille, Brian 550 mg at 12/22/17 204 metoprolol tartrate (short acting) 25 mg tab(s) (LOPRESSOR) 25 mg ORAL BID Guille, Brian 25 mg at 12/23/17 0817 spironolactone 50 mg tab(s) (ALDACTONE) 50 mg ORAL DAILY Guille, Brian 50 mg at 12/22/17 0921 levothyroxine 25 mcg tab(s) (SYNTHROID) 25 mcg ORAL DAILY Guille, Brian 25 mcg at 12/22/17 0920 0.9% NaCl 3-5 mL 3-5 mL INTRAVENOUS q 12 H Guille, Brian 5 mL at 12/23/17 0817 ondansetron orally disintegrating 4 mg tab(s) (ZOFRAN ODT) 4 mg ORAL q 6 H PRN Guille, Brian Or ondansetron (PF) 4 mg injection (ZOFRAN) 4 mg INTRAVENOUS q 6 H PRN Guille, Brian 4 mg at 12/20/17 0836 acetaminophen 650 mg tab(s) (TYLENOL) 650 mg ORAL q 6 H PRN Guille, Brian morphine 1-2 mg injection 1-2 mg INTRAVENOUS q 4 H PRN Guille, Brian 1 mg at 12/20/17 0836 dextrose 40 % 15 g 15 g ORAL PRN Guille, Brian Or glucagon 1 mg injection (GLUCAGEN) 1 mg INTRAMUSCULAR PRN Guille, Brian Or dextrose 50% in water 25 mL syringe 12.5 g INTRAVENOUS PRN Guille, Brian insulin lispro injection (rapid acting) (HumaLOG) SUBCUTANEOUS q 6 H Guille, Brian 2 Units at 12/22/17 1822 sucralfate 1 g oral liquid (CARAFATE) 1 g ORAL q 6 H Coffman, Dina M 1 g at 12/22/[address] 40 mg tab(s) (PROTONIX) 40 mg ORAL BID AC (0600/1600) Coffman, Dina M 40 mg at 12/22/17 1509 Allergies: ALLERGIES No Known Allergies DOS EXAM: Adequate NPO Status: Yes Anesthetic Risks, Benefits, Alternatives, Personnel and Consent Discussed: Yes Patient agrees to proceed: Yes Previous Anesthesia: No history of adverse event Airway Assessment: MP 3; Neck ROM: Limited Flexion and Extension; Airway Evaluation: Short Neck and Thick neck Symptoms of Sleep Apnea: Hypertension, BMI > 35, Age over 50 (77 year old) and Male gender Dentition: Poor dentition Multiple missing teeth Broken tooth upper right Additional Physical Exam: Lungs: Patient health status unchanged since recent history and physical. See history and physical for exam findings. Cardiac: Patient health status unchanged since recent history and physical. See history and physical for exam findings. Additional Pertinent Findings: N/A Blood Products: Not anticipated for this procedure Anesthetic Plan: MAC with general as back up Anesthetic Monitoring: Standard ASA Monitors Pain Management Plan: Parenteral or Oral ASA Class: 3 Other Medical Problems: None Chronic Beta Thais medication administered within 24 hours: N/A I have interviewed and examined the patient. I have reviewed the medical record and/or the pre-anesthesia evaluation, pertinent labs, and test results. Significant changes in the patient's condition since the History and Physical, not otherwise documented in primary service progress notes: No This contains updated information obtained within 48 hours of Surgery/Procedure. SIGNATURE: Verona Nieves MD PATIENT NAME: Hang Meza DATE: December 23, 2017 TIME: 10:02 AM CSN: [id number] PROTIME Collected: 12/23/2017 Status: F Source: [place] 5:56 AM [facility] OTHER CAMPUS REPOSITORY TYPE CODE TESTS RESULT OUT OF RANGE REFERENCE UNITS LAB PSEC 9.7-13.0 sec PT Sec 12.8 LAB INR 0.9-1.3 PT INR 1.2 Result Comment: Vitamin K Antagonist (VKA) Therapeutic Range: INR 2 to 3 (Target INR of 2.5) Note: For patients treated with VKA drugs, such as warfarin, the [employer] [employer] 2012 Guideline recommends a therapeutic INR range of 2 to 3 (target INR of 2.5). This recommendation includes high-risk patients with antiphospholipid syndrome with previous arterial or venous thromboembolism, current-generation mechanical or bioprosthetic aortic heart valve replacement. Note: Patients with mechanical aortic valve replacement and additional risk factors for thromboembolic events (atrial fibrillation, previous thromboembolism, LV dysfunction, hypercoagulable conditions) or an older generation mechanical AVR (i.e., ball in-Cage) or any mechanical MVR should have a INR therapeutic range of 2.5 to 3.5 (target INR of 3). Nava GH, et al. Chest 2012, 141:7S-47S Venessa RA, et al. [facility] 2017, 70: 252-289 Performed By: #### PT, CMP, LIPA #### [facility] [address] [place] [address] COMP METABOLIC PANEL Collected: 12/23/2017 Status: F Source: [place] 5:56 AM [facility] OTHER CAMPUS REPOSITORY TYPE CODE TESTS RESULT OUT OF REFERENCE UNITS RANGE LAB TP 6.3-8.0 g/dL Protein, Total 6.4 LAB ALB 3.9-4.9 g/dL Low Albumin 3.2 LAB CA 8.5-10.2 mg/dL Low Calcium, Total 8.2 LAB TBIL 0.2-1.3 mg/dL Bilirubin, High Total 1.8 LAB ALKP 36-108 U/L Alkaline Phosphatase 44 LAB AST 14-40 U/L AST 25 LAB GLU 74-99 mg/dL Glucose High 105 Result Comment: The [place] [employer] (ADA) provides guidance for cutoff values for fasting glucose and random glucose. The ADA defines fasting as no caloric intake for at least 8 hours. Fas ting plasma glucose results between 100 to 125 mg/dL indicate increased risk for diabetes (prediabetes). Fasting plasma glucose results greater than or equal to 126 mg/dL meet the criteria for diagnosis of diabetes. In the absence of unequivocal hyperglycemia, results should be confirmed by repeat testing. In a patient with classic symptoms of hyperglycemia or hyperglycemic crisis, random plasma glucose results greater than or equal to 200 mg/dL meet the criteria for diagnosis of diabetes. Reference: Standards of Medical Care in Diabetes 2016, [place] [employer]. Diabetes Care. 2016.39(Suppl 1). LAB BUN 9-24 mg/dL BUN 23 LAB CRET 0.73-1.22 mg/dL Creatinine High 1.77 LAB NA 136-144 mmol/L Sodium 137 LAB K 3.7-5.1 mmol/L Potassium 4.5 LAB CL 97-105 mmol/L Chloride 102 LAB CO2 22-30 mmol/L CO2 24 LAB AGAP 9-18 mmol/L Anion Gap 11 LAB ALT 10-54 U/L ALT 16 LAB GFRAA eGFR- Amer. 45 LAB GFRNAA . eGFR-All Other Races 37 Result Comment: eGFR (Estimated GFR) Units of measure: mL/min/1.73 meters squared eGFR is derived from the reexpressed MDRD Study equation using the following parameters: serum creatinine, age, gender and race. The creatinine assay has been calibrated to be traceable to IDMS. An eGFR <60 mL/min/1.73m2 for >3 months is consistent with chronic kidney disease. Refer to KDOQI guidelines for clinical interpretation. In patients with unstable renal function, e.g. those with acute kidney injury, the eGFR may not accurately reflect actual GFR. Performed By: #### PT, CMP, LIPA #### [facility] [address] [place] [address] LIPASE Collected: 12/23/2017 Status: F Source: [place] 5:56 AM CLINIC OTHER CAMPUS REPOSITORY TYPE CODE TESTS RESULT OUT OF REFERENCE UNITS RANGE LAB LIPA 16-61 U/L Lipase 30 Performed By: #### PT, CMP, LIPA #### [facility] [address] [place] [address] CBC Collected: 12/23/2017 Status: F Source: [place] 5:56 AM CLINIC OTHER CAMPUS REPOSITORY TYPE CODE TESTS RESULT OUT OF REFERENCE UNITS RANGE LAB WBC 3.70-11.00 k/uL WBC 3.92 LAB RBC 4.20-6.00 m/uL Low RBC 2.67 LAB HGB 13.0-17.0 g/dL Low Hemoglobin 8.8 LAB HCT 39.0-51.0 % Low Hematocrit 28.2 LAB MCV 80.0-100.0 fL MCV High 105.6 LAB MCH 26.0-34.0 pG MCH 33.0 LAB MCHC 30.5-36.0 g/dL MCHC 31.2 LAB RDWCV 11.5-15.0 % RDW-CV High 20.1 LAB PLTCT 150-400 k/uL Low Platelet Count 64 Result Comment: Sample checked for a clot. LAB MPV 9.0-12.7 fL MPV 12.3 Performed By: #### CBC #### [facility] [address] [place], [place] [id number] TYPE AND SCREEN Collected: 12/23/2017 Status: F Source: [place] 5:56 AM [facility] OTHER [place] REPOSITORY TYPE CODE TESTS RESULT OUT OF REFERENCE UNITS RANGE LAB %ABR A ABO/RH(D) POSITIVE LAB % Antibody NEG Screen Performed By: #### TSCR #### [facility] [address] [place], [place] [id number] OCCULT BLOOD SCREEN Collected: 12/22/2017 Status: F Source: [place] 2:50 PM [facility] OTHER [place] REPOSITORY TYPE CODE TESTS RESULT OUT OF RANGE REFERENCE UNITS LAB OBSRCE Occult Stool Blood Source: LAB OBSC Abnormal Occult Positive Alert Blood Screen Performed By: #### OBSCN #### [facility] [address] [place], [place] [id number] PROGRESS Observed: 12/22/2017 Status: COMPLETED Source: [place] 1:48 PM [facility] OTHER [place] REPOSITORY HNO ID: [id number] Author: Beata Barbour Service: General Internal Medicine Author Type: Physician Type: Progress Notes Filed: 12/22/2017 2:02 PM Note Text: DEPARTMENT OF HOSPITAL MEDICINE PROGRESS NOTE SERVICE DATE: 12/22/2017 SERVICE TIME: 1:48 PM Hospital Medicine/Primary Attending: Beata Barbour MD NIGHT AND WEEKEND COVERAGE: Nights: Please contact pager [phone]. Subjective INTERVAL HPI: patient seen and examined, had some epigastric pain this morning, wants to eat MEDICATIONS: Reviewed Objective PHYSICAL EXAM: BP 116/62 Pulse 72 Temp (Src) 98.4 (Oral) Resp 20 Ht 5' 9 (1.75m) Wt 285 lb (129.3kg) SpO2 96% BMI 42.07 kg/(m2). Physical Exam Performed GENERAL: Alert, no distress, cooperative SKIN: Skin color, texture, turgor normal. No rashes or lesions. LUNGS: Lungs clear to auscultation, Good diaphragmatic excursion CARDIAC: Normal S1 and S2; no rubs, murmurs, or gallops ABDOMEN: soft, distended EXTREMITIES: Extremities normal, no deformities, edema, clubbing or skin discoloration. Lines, Drains, and Airways Line Peripheral 12/21/17 1800 Short Left Forearm 22 Gauge less than 1 day DATA: Diagnostic tests reviewed for today's visit: Most recent labs and imaging results. Assessment/Plan Principal Problem: Acute pancreatitis Unclear etiology Abdominal pain improving Advance to full liquid diet Pain control Lipids reviewed, within normal range Possible drug induced Acute macrocytic anemia Check stool for occult blood Had recent EGD with oozing blood from gastric polyps. ? UGIB, GI to re-scope Continue ppi and sucralfate for now Check b12/folic acid s/p 2U PRBC, will monitor hb closely May need another transfusion if hb <7 Will have active t+s on file Constipation Bowel regimen Type 2 DM Continue Insulin and FS per algorithm Sugars well controlled during admission Last a1c = 6% Liver cirrhosis Currently compensated On aldactone and rifaximin Thrombocytopenia 2/2 above CKD III Around baseline Monitor closely Medication and Non-Pharmacologic VTE Prophylaxis/Anticoagulants 12/21/17 1530 intermittent pneumatic compression 12/20/17 0445 pneumatic compression stockings (pa,co) VTE Prophylaxis: Contraindicated high bleeding risk Disposition: Home Plan of care discussed with: Patient SIGNATURE: Beata Barbour MD PATIENT NAME: Hang Meza DATE: December 22, 2017 TIME: 1:48 PM PAGER/CONTACT #: [id number] etx [phone] CONSULT PROG Observed: 12/22/2017 Status: COMPLETED Source: [place] 11:35 AM CLINIC OTHER CAMPUS REPOSITORY HNO ID: [id number] Author: Irene Rodrigues Service: Gastroenterology Author Type: Physician Type: Consult Progress Note Filed: 12/22/2017 1:36 PM Note Text: GASTROENTEROLOGY CONSULT PROGRESS NOTE Patient Name: Hang Meza SERVICE DATE: December 22, 2017 SERVICE TIME: 11:35 AM ASSESSMENT 1- Acute pancreatitis- possibly medication effect (simvastatin, lasix) 2- Acute on chronic macrocytic anemia - s/p 2 units prbc 3- Cirrhosis complicated by anemia, thrombocytopenia- suspect CARBAJAL 4- Hx colon polyps / gastric polyps oozing at time of last EGD 11/24/17?/ GERD 5- DM ? PLAN - Advance to full liquid diet - Daily lipase, CBC, CMP, INR - Follow up B12 and folate levels - Monitor for overt/occult blood loss - Stool log - Stool for OB - Continue Rifaximin 550 mg po BID - Continue Protonix 40 mg po BID / Carafate 1 g po QID as per home regimen - Aldactone 50 mg po daily - Outpatient SBCE further evaluate anemia ? - Consider repeat EGD to investigate recurrent anemia w/ hx of gastric polyps Patient seen and examined. Discussed with mid level provider. Nunez findings confirmed. Plan as outlined. Feels ok. States had recurrence of abd pain but not as severe. Tolerating diet. No melena. Hungry and wants diet advanced. Discussed with patient and daughter at bedside that H/H is declining. I again reviewed EGD findings from earlier this month showing oozing from multiple gastric polyps. Discussed EGD again to evaluate; they discussed with other daughter and they agreed to proceed. Risks, benefits and alternatives were discussed. Irene Rodrigues MD December 22, 2017 1:10 PM INTERVAL HPI: Patient and daughter present at the bedside. Patient states he was feeling well this am but as the day has gone by he is noticing more and more abdominal pain similar to admission complaints. He is without complaints of nausea or vomiting. No indigestion. Last BM was on Friday and reports minimal flatus since admission. Patient received 2 units of packed red blood cells with minimal improvement in hgb (6.4--7.9). Today Hgb 7.2. PHYSICAL EXAM: Patient Vitals for the past 24 hrs: BP Temp Temp src Pulse Resp SpO2 12/22/17 0708 116/62 36.9 ?C (98.4 ?F) Oral 72 20 96 % 12/21/17 2323 (!) 99/38 36.3 ?C (97.3 ?F) Oral 64 20 96 % 12/21/17 1603 107/52 - - 69 - - 12/21/17 1525 (!) 114/38 37 ?C (98.6 ?F) Oral 69 19 96 % GENERAL: Alert AND oriented x 3. Cooperative. NAD. Flat affect. EYES: No scleral icterus SKIN: Pale in color. No jaundice LUNGS: Clear to auscultation anteriorly CARDIAC: RRR with systolic murmur ABDOMEN: BS x 4. Abdomen obese, soft. ?Mild tenderness to epigastrium and right upper quadrant. Mildly distended. ?No palpable masses or organomegaly. No guarding or rebound tenderness elicited EXTREMITIES: Mild edema to upper and lower extremities. SCD's inplace MEDICATIONS: Current hospital medications: rifAXIMin 550 mg tab(s) (XIFAXAN) 550 mg ORAL BID metoprolol tartrate (short acting) 25 mg tab(s) (LOPRESSOR) 25 mg ORAL BID spironolactone 50 mg tab(s) (ALDACTONE) 50 mg ORAL DAILY levothyroxine 25 mcg tab(s) (SYNTHROID) 25 mcg ORAL DAILY 0.9% NaCl 3-5 mL 3-5 mL INTRAVENOUS q 12 H ondansetron orally disintegrating 4 mg tab(s) (ZOFRAN ODT) 4 mg ORAL q 6 H PRN ondansetron (PF) 4 mg injection (ZOFRAN) 4 mg INTRAVENOUS q 6 H PRN acetaminophen 650 mg tab(s) (TYLENOL) 650 mg ORAL q 6 H PRN morphine 1-2 mg injection 1-2 mg INTRAVENOUS q 4 H PRN dextrose 40 % 15 g 15 g ORAL PRN glucagon 1 mg injection (GLUCAGEN) 1 mg INTRAMUSCULAR PRN dextrose 50% in water 25 mL syringe 12.5 g INTRAVENOUS PRN insulin lispro injection (rapid acting) (HumaLOG) SUBCUTANEOUS q 6 H sucralfate 1 g oral liquid (CARAFATE) 1 g ORAL q [address] 40 mg tab(s) (PROTONIX) 40 mg ORAL BID AC (0600/1600) LABS: CBC, Coags, BMP, Mg, Phos Recent Labs 12/22/17 0512/21/17 0631 12/21/17 0114 12/20/17 0634 WBC 3.72 4.01 -- 5.41 HB 7.2* 7.7* 7.9* 6.4* HCT 23.8* 25.3* -- 21.6* PLT 64* 72* -- 78* INR 1.2 1.2 -- -- NA 139 140 -- 136 K 4.8 5.1 -- 4.8 CHLOR 105 104 -- 99 CO2 24 25 -- 25 BUN 31* 39* -- 45* CREAT 1.91* 1.96* -- 1.91* GLUC 98 124* -- 132* CA 8.2* 8.6 -- 9.0 Liver Function, Amylase, AND Lipase Recent Labs 12/22/1751712/21/17 0631 12/20/17 0634 TPROT 6.4 6.8 7.1 ALB 3.0* 3.3* 3.4* ALT 15 15 16 AST 26 23 22 ALKPHOS 38 39 41 TBILI 1.1 1.6* 0.9 LIPASE 35 54 >600* ? 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 10/30/2017 Hepatitis C (-)? ? 10/30/2017 Iron 207 (H) Ferritin 66.4 TIBC 395 (H) Transferrin Saturation 52 ?12/20/17 Triglyceride 76 ? RADIOLOGY? 01/12/2015 RUQ US IMPRESSION: HEPATIC STEATOSIS. ?NO SUSPICIOUS FOCAL LESION. ?NO BILIARY DILATATION ? 11/05/17 NM liver IMPRESSION: No evidence for splenomegaly. ?No focal hepatic abnormality. ?Colloid ?shift noted consistent with cirrhosis. ? 12/19/17 CXR (At [place]) No acute cardiopulmonary findings or changes. ?Negative for new consolidation, focal atelectasis, pleural effusions or cardiomegaly. 12/20/17 RUQ US Pancreas: Normal sonographic appearance. Portions obscured: tail Liver: Echotexture: ?Normal, homogeneous. Echogenicity: ?Increased. Surface contour: ?Nodular. Lesions: ?None. Biliary: No intrahepatic biliary duct dilation. CBD: 0.4 cm at the hilum. Gallbladder: ?Normal caliber. Contents: ?No cholelithiasis. Wall: ?Normal. Other: ?No pericholecystic fluid. Right Kidney: No hydronephrosis. ?12 mm lower pole cyst Ascites: None. Spleen: Mild splenomegaly measuring 14.1 x 5.9 x 13.3 cm. ?Calcified granulomas. ?No lesion. Incidental note is made of left renal cysts, the largest in the lower pole measuring 3.5 cm. ?No left hydronephrosis. IMPRESSION: Cirrhotic liver morphology. No hepatic lesion. Hepatic steatosis. Mild splenomegaly. Bilateral renal cysts MOST RECENT EGD: 11/24/17 (Derrick Jones MD). ?ANGIE secondary to chronic blood loss, cirrhosis and low platelet count ?Findings: The examined esophagus was normal. Previously seen and nonbleeding multiple gastric polyps from last year are now oozing blood in multiple places throughout the stomach. The ?polyps had previously been demonstrated to be a fundic gland polyps with no malignancy. A biopsy was taken. Blood loss was minimal. The examined duodenum was normal. Impression: ?- Normal esophagus. ?- Normal examined duodenum. ?Bx: Stomach, polyp, biopsy - Predominantly granulation tissue and ?fibrinopurulent exudate, compatible with gastric hyperplastic polyp. - No evidence of dysplasia or carcinoma. ? MOST RECENT COLONOSCOPY: 06/02/2017 (Derrick Jones MD). ?Hx colon polyps -?Preparation of the colon was fair. - One 10 mm polyp in the descending colon, removed with a hot snare. Resected and retrieved. Bx: Colon, descending, polypectomy (B) - Colonic mucosa with thermal artifact, favor hyperplastic polyp. SIGNATURE: Fabiana Saleem APRN.ENVELOPE STAMPING MACHINE OPERATOR DATE: December 22, 2017 TIME: 11:35 AM CBC Collected: 12/22/2017 Status: F Source: [place] 5:18 AM CLINIC OTHER CAMPUS REPOSITORY TYPE CODE TESTS RESULT OUT OF REFERENCE UNITS RANGE LAB WBC 3.70-11.00 k/uL WBC 3.72 LAB RBC 4.20-6.00 m/uL Low RBC 2.15 LAB HGB 13.0-17.0 g/dL Low Hemoglobin 7.2 LAB HCT 39.0-51.0 % Low Hematocrit 23.8 LAB MCV 80.0-100.0 fL MCV High 110.7 LAB MCH 26.0-34.0 pG MCH 33.5 LAB MCHC 30.5-36.0 g/dL Low MCHC 30.3 LAB RDWCV 11.5-15.0 % RDW-CV High 20.1 LAB PLTCT 150-400 k/uL Low Platelet Count 64 LAB MPV 9.0-12.7 fL MPV 12.5 Performed By: #### CBC #### [facility] [address] [facility] [phone] PROTIME Collected: 12/22/2017 Status: F Source: [place] 5:18 AM [facility] OTHER [place] REPOSITORY TYPE CODE TESTS RESULT OUT OF RANGE REFERENCE UNITS LAB PSEC 9.7-13.0 sec PT Sec 12.8 LAB INR 0.9-1.3 PT INR 1.2 Result Comment: Vitamin K Antagonist (VKA) Therapeutic Range: INR 2 to 3 (Target INR of 2.5) Note: For patients treated with VKA drugs, such as warfarin, the [employer] [employer] 2012 Guideline recommends a therapeutic INR range of 2 to 3 (target INR of 2.5). This recommendation includes high-risk patients with antiphospholipid syndrome with previous arterial or venous thromboembolism, current-generation mechanical or bioprosthetic aortic heart valve replacement. Note: Patients with mechanical aortic valve replacement and additional risk factors for thromboembolic events (atrial fibrillation, previous thromboembolism, LV dysfunction, hypercoagulable conditions) or an older generation mechanical AVR (i.e., ball in-Cage) or any mechanical MVR should have a INR therapeutic range of 2.5 to 3.5 (target INR of 3). Nava GH, et al. Chest 2012, 141:7S-47S Venessa RA, et al. [facility] 2017, 70: 252-289 Performed By: #### PT, CMP, LIPA #### [facility] [address] [place] [address] COMP METABOLIC PANEL Collected: 12/22/2017 Status: F Source: [place] 5:18 AM [facility] REPOSITORY TYPE CODE TESTS RESULT OUT OF REFERENCE UNITS RANGE LAB TP 6.3-8.0 g/dL Protein, Total 6.4 LAB ALB 3.9-4.9 g/dL Low Albumin 3.0 LAB CA 8.5-10.2 mg/dL Low Calcium, Total 8.2 LAB TBIL 0.2-1.3 mg/dL Bilirubin, Total 1.1 LAB ALKP 36-108 U/L Alkaline Phosphatase 38 LAB AST 14-40 U/L AST 26 LAB GLU 74-99 mg/dL Glucose 98 Result Comment: The [place] [employer] (ADA) provides guidance for cutoff values for fasting glucose and random glucose. The ADA defines fasting as no caloric intake for at least 8 hours. Fas ting plasma glucose results between 100 to 125 mg/dL indicate increased risk for diabetes (prediabetes). Fasting plasma glucose results greater than or equal to 126 mg/dL meet the criteria for diagnosis of diabetes. In the absence of unequivocal hyperglycemia, results should be confirmed by repeat testing. In a patient with classic symptoms of hyperglycemia or hyperglycemic crisis, random plasma glucose results greater than or equal to 200 mg/dL meet the criteria for diagnosis of diabetes. Reference: Standards of Medical Care in Diabetes 2016, [place] [employer]. Diabetes Care. 2016.39(Suppl 1). LAB BUN 9-24 mg/dL BUN High 31 LAB CRET 0.73-1.22 mg/dL Creatinine High 1.91 LAB NA 136-144 mmol/L Sodium 139 LAB K 3.7-5.1 mmol/L Potassium 4.8 LAB CL 97-105 mmol/L Chloride 105 LAB CO2 22-30 mmol/L CO2 24 LAB AGAP 9-18 mmol/L Anion Gap 10 LAB ALT 10-54 U/L ALT 15 LAB GFRAA eGFR- Amer. 41 LAB GFRNAA . eGFR-All Other Races 34 Result Comment: eGFR (Estimated GFR) Units of measure: mL/min/1.73 meters squared eGFR is derived from the reexpressed MDRD Study equation using the following parameters: serum creatinine, age, gender and race. The creatinine assay has been calibrated to be traceable to IDMS. An eGFR <60 mL/min/1.73m2 for >3 months is consistent with chronic kidney disease. Refer to KDOQI guidelines for clinical interpretation. In patients with unstable renal function, e.g. those with acute kidney injury, the eGFR may not accurately reflect actual GFR. Performed By: #### PT, CMP, LIPA #### [facility] [address] [facility] [phone] LIPASE Collected: 12/22/2017 Status: F Source: [place] 5:18 AM CLINIC OTHER CAMPUS REPOSITORY TYPE CODE TESTS RESULT OUT OF REFERENCE UNITS RANGE LAB LIPA 16-61 U/L Lipase 35 Performed By: #### PT, CMP, LIPA #### [facility] [address] [place] [address] VITAMIN B12 Collected: 12/22/2017 Status: F Source: [place] 5:18 AM [facility] OTHER [place] REPOSITORY TYPE CODE TESTS RESULT OUT OF REFERENCE UNITS RANGE LAB B12 232-1245 pg/mL Vitamin B12 513 Performed By: #### B12, SERFOL #### [facility] [address] [id number] FOLATE, SERUM Collected: 12/22/2017 Status: F Source: [place] 5:18 AM [facility] OTHER [place] REPOSITORY TYPE CODE TESTS RESULT OUT OF REFERENCE UNITS RANGE LAB SERFOL >4.7 ng/mL Folate, >20.0 Serum Result Comment: A result of > 20 ng/mL is not necessarily indicative of a pathologic or treatable condition: it reflects a limitation of the test methodology. Assay reference range: 4.8 to 24.2 ng/mL. Suitable for detection of folate deficiency. Reference: Folate III (Folate III) [package insert V 1.0 Czech]. [facility], [place], [place]: June 2015. Performed By: #### B12, SERFOL #### [facility] [address] [id number] PROGRESS Observed: 12/21/2017 Status: COMPLETED Source: [place] 3:18 PM [facility] OTHER [place] REPOSITORY HNO ID: [id number] Author: Maile Whittington Service: Hospital Medicine Author Type: Physician Type: Progress Notes Filed: 12/21/2017 3:28 PM Note Text: HOSPITAL MEDICINE PROGRESS NOTE Name: Hang Meza SERVICE DATE: 12/21/2017 SERVICE TIME: 3:18 PM LOCATION / ROOM: [id number] Hospital Medicine/Primary Attending: Maile Whittington MD NIGHT COVERAGE BETWEEN 5.30P-7.30A Page [phone] ASSESSMENT AND PLAN Active Hospital Problems Diagnosis - Acute pancreatitis - Obesity, Class III, BMI >= 40 E66.01 - Anemia - Morbid obesity (HCC) - Essential hypertension - Mixed hyperlipidemia - 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 Symptoms started after lunch which is suspicious for gall stone etiology Non alcoholic Will do supportive care IVF will be decreased from 150 to 75cc/hr , pain control, NPO GI consult Lipid , USG gall bladder, and repeat lipase are now all normal Hypothyroidism Continue home medications ? Acute microcytic anemia -worked up as outpt and no etiology for his anemia -Hb 6.6 and s/p 2u of pRBCs, Hb improved to 7.7 colonoscopy 2 years ago and unremarkable. Follow up with out pt heme GERD Continue PPI ? Aortic valve stenosis, mild Out pt mx ? Cirrhosis/ CARBAJAL possible Non alcoholic Dr. Hodges (hepatology) - seen last month for chronic liver disease, and cirrhosis. Patient has history of fatty liver disease, but no review his liver biopsy. he denied jaundice or any evidence of ascites. he had previous endoscopy colonoscopy last year here with Dr. Jones. Well compensated at this time On lasix /aldactone/Rifaximin Hold lasix, continue rest of the medications Watch for any signs of fluid overload, watch for complications ? Essential hypertension Continue BB, aldactone. Lasix held ? Mixed hyperlipidemia Held statin, could of caused the pancreatitis. ? Uncontrolled type 2 diabetes mellitus with stage 3 chronic kidney disease, with long-term current use of insulin On insulin at home, last A1C is 6.0 0n 10/28/17 Hold home insulin, start SSI Q 6 hrs Sugars at goal ? Morbid obesity Out pt mx SUBJECTIVE INTERVAL HPI: Feels better, no fever, chills, cp nor palpitations. abd pain is much improved. He has no new problems and denies any fevers, chills, sob, chest pain, abd pain, n/v/d at this time. No events overnight MEDICATIONS: Reviewed Current Facility-Administered Medications: rifAXIMin 550 mg tab(s) (XIFAXAN) 550 mg ORAL BID Brian Guille 550 mg at 12/21/17 0851 aspirin, enteric coated 81 mg tab(s) (ASPIRIN, ENTERIC COATED) 81 mg ORAL DAILY Brian Guille metoprolol tartrate (short acting) 25 mg tab(s) (LOPRESSOR) 25 mg ORAL BID Brian Guille 25 mg at 12/21/17 0851 spironolactone 50 mg tab(s) (ALDACTONE) 50 mg ORAL DAILY Brian Guille 50 mg at 12/21/17 0850 levothyroxine 25 mcg tab(s) (SYNTHROID) 25 mcg ORAL DAILY Brian Guille 25 mcg at 12/21/17 0850 simvastatin 20 mg tab(s) (ZOCOR) 20 mg ORAL DAILY Brian Guille 20 mg at 12/21/17 0851 0.9% NaCl 3-5 mL 3-5 mL INTRAVENOUS q 12 H Brian Guille 5 mL at 12/20/17 0617 NaCl 0.9% iv infusion 150 mL/hr INTRAVENOUS CONTINUOUS Maile Whittington Last Rate: 150 mL/hr at 12/21/17 1153 150 mL/hr at 12/21/17 1153 ondansetron orally disintegrating 4 mg tab(s) (ZOFRAN ODT) 4 mg ORAL q 6 H PRN Brian Guille Or ondansetron (PF) 4 mg injection (ZOFRAN) 4 mg INTRAVENOUS q 6 H PRN Brian Guille 4 mg at 12/20/17 0836 acetaminophen 650 mg tab(s) (TYLENOL) 650 mg ORAL q 6 H PRN Brian Guille morphine 1-2 mg injection 1-2 mg INTRAVENOUS q 4 H PRN Brian Guille 1 mg at 12/20/17 0836 dextrose 40 % 15 g 15 g ORAL PRN Brian Guille Or glucagon 1 mg injection (GLUCAGEN) 1 mg INTRAMUSCULAR PRN Brian Guille Or dextrose 50% in water 25 mL syringe 12.5 g INTRAVENOUS PRN Brian Guille insulin lispro injection (rapid acting) (HumaLOG) SUBCUTANEOUS q 6 H Brian Guille sucralfate 1 g oral liquid (CARAFATE) 1 g ORAL q 6 H Dina M Coffman 1 g at 12/21/[address] 40 mg tab(s) (PROTONIX) 40 mg ORAL BID AC (0600/1600) Dina M Coffman 40 mg at 12/21/17 0524 OBJECTIVE PHYSICAL EXAM: BP 117/38 Pulse 66 Temp (Src) 98.8 (Oral) Resp 20 Ht 5' 9 (1.75m) Wt 285 lb (129.3kg) SpO2 99% BMI 42.07 kg/(m2). GENERAL: Alert, no distress, cooperative SKIN: Skin color, texture, turgor normal. No rashes or lesions. EYES: PERRLA, EOMI OROPHARYNX: Lips, mucosa, and tongue normal. Teeth and gums normal. Oropharynx normal. NECK: No jugulovenous distention, No carotid bruits, Carotid pulse normal contour, Supple LUNGS: Lungs clear to auscultation, Good diaphragmatic excursion CARDIAC: Normal S1 and S2; no rubs, murmurs, or gallops ABDOMEN: Abdomen soft, mild tender, BS normal, No masses or organomegaly EXTREMITIES: Extremities normal, no deformities, edema, clubbing or skin discoloration. Good capillary refill., No ulcers NEURO: Reflexes normal and symmetric. Sensation grossly intact PULSES: 2+ radial, 2+ carotid DATA: Diagnostic tests reviewed for today's visit: Most recent labs CBC: WBC 4.01 12/21/2017 Hemoglobin 7.7 12/21/2017 HCT 25.3 12/21/2017 Platelet 72 12/21/2017 CMP: Sodium 140 12/21/2017 Potassium 5.1 12/21/2017 BUN 39 12/21/2017 Creatinine 1.96 12/21/2017 Glucose 124 12/21/2017 Chloride 104 12/21/2017 CO2 25 12/21/2017 VTE Prophylaxis: Pneumatic Compression Device Disposition: Home Plan of care discussed with: Patient SIGNATURE: Maile Whittington MD DATE: December 21, 2017 TIME: 3:18 PM CONSULT PROG Observed: 12/21/2017 Status: COMPLETED Source: [place] 11:16 AM CLINIC OTHER CAMPUS REPOSITORY [facility] ID: [id number] Author: Irene Rodrigues Service: Gastroenterology Author Type: Physician Type: Consult Progress Note Filed: 12/21/2017 1:22 PM Note Text: GASTROENTEROLOGY CONSULT PROGRESS NOTE Patient Name: Hang Meza SERVICE DATE: December 21, 2017 SERVICE TIME: 11:17 AM ASSESSMENT 1- Acute pancreatitis- Possibly medication effect (simvastatin, lasix) 2- Acute on chronic macrocytic anemia - s/p 2 units prbc 3- Cirrhosis complicated by anemia, thrombocytopenia- suspect CARBAJAL 4- Hx colon polyps / gastric polyps oozing at time of last EGD 11/24/17 / GERD 5- DM ? PLAN - Daily lipase, CBC, CMP, INR - Monitor for overt/occult blood loss - Stool log - Continue Rifaximin 550 mg po BID - Continue Protonix 40 mg po BID / Carafate 1 g po QID as per home regimen - Aldactone 50 mg po daily - Further recommendations pending clinical course and results of above ? Patient seen and examined. Discussed with mid level provider. Nunez findings confirmed. Plan as outlined. Irene Rodrigues MD December 21, 2017 1:21 PM INTERVAL HPI: Reports abdominal pain is resolved. No BMs since admission. Hgb improved s/p 2 units prbc yesterday. Daughter/caregiver at bedside and reports Lasix dose recently increased from 40 mg to 80 mg within the past 2 months. PHYSICAL EXAM: Patient Vitals for the past 24 hrs: BP Temp Temp src Pulse Resp SpO2 12/21/17 0710 (!) 117/38 37.1 ?C (98.8 ?F) Oral 66 20 99 % 12/21/17 0311 113/57 36.8 ?C (98.2 ?F) Oral 70 20 98 % 12/20/17 1953 (!) 105/42 37.1 ?C (98.7 ?F) Oral 72 17 95 % 12/20/17 1911 (!) 113/36 36.9 ?C (98.4 ?F) Oral 75 18 95 % 12/20/17 1624 128/50 36.9 ?C (98.4 ?F) Oral 76 19 95 % 12/20/17 1539 126/54 37.1 ?C (98.7 ?F) Oral 75 17 94 % 12/20/17 1508 110/51 36.9 ?C (98.4 ?F) Oral 72 19 95 % GENERAL: Alert AND oriented x 3. Cooperative. NAD EYES: No scleral icterus SKIN: Pale in color. No jaundice LUNGS: Clear to auscultation anteriorly CARDIAC: RRR with systolic murmur ABDOMEN: BS x 4. Abdomen obese, soft. Mild tenderness to epigastrium. Mildly distended. No palpable masses or organomegaly. No guarding or rebound tenderness elicited EXTREMITIES: No upper or lower extremity edema ? LABS: CBC, Coags, BMP, Mg, Phos Recent Labs 12/21/17 0631 12/21/17 0114 12/20/17 0634 WBC 4.01 -- 5.41 HB 7.7* 7.9* 6.4* HCT 25.3* -- 21.6* PLT 72* -- 78* INR 1.2 -- -- NA 140 -- 136 K 5.1 -- 4.8 CHLOR 104 -- 99 CO2 25 -- 25 BUN 39* -- 45* CREAT 1.96* -- 1.91* GLUC 124* -- 132* CA 8.6 -- 9.0 Liver Function, Amylase, AND Lipase Recent Labs 12/21/17 0631 12/20/17 0634 TPROT 6.8 7.1 ALB 3.3* 3.4* ALT 15 16 AST 23 22 ALKPHOS 39 41 TBILI 1.6* 0.9 LIPASE 54 >600* MEDICATIONS: Current hospital medications: rifAXIMin 550 mg tab(s) (XIFAXAN) 550 mg ORAL BID aspirin, enteric coated 81 mg tab(s) (ASPIRIN, ENTERIC COATED) 81 mg ORAL DAILY metoprolol tartrate (short acting) 25 mg tab(s) (LOPRESSOR) 25 mg ORAL BID spironolactone 50 mg tab(s) (ALDACTONE) 50 mg ORAL DAILY levothyroxine 25 mcg tab(s) (SYNTHROID) 25 mcg ORAL DAILY simvastatin 20 mg tab(s) (ZOCOR) 20 mg ORAL DAILY 0.9% NaCl 3-5 mL 3-5 mL INTRAVENOUS q 12 H NaCl 0.9% iv infusion 150 mL/hr INTRAVENOUS CONTINUOUS ondansetron orally disintegrating 4 mg tab(s) (ZOFRAN ODT) 4 mg ORAL q 6 H PRN ondansetron (PF) 4 mg injection (ZOFRAN) 4 mg INTRAVENOUS q 6 H PRN acetaminophen 650 mg tab(s) (TYLENOL) 650 mg ORAL q 6 H PRN morphine 1-2 mg injection 1-2 mg INTRAVENOUS q 4 H PRN dextrose 40 % 15 g 15 g ORAL PRN glucagon 1 mg injection (GLUCAGEN) 1 mg INTRAMUSCULAR PRN dextrose 50% in water 25 mL syringe 12.5 g INTRAVENOUS PRN insulin lispro injection (rapid acting) (HumaLOG) SUBCUTANEOUS q 6 H sucralfate 1 g oral liquid (CARAFATE) 1 g ORAL q [address] 40 mg tab(s) (PROTONIX) 40 mg ORAL BID AC (0600/1600) MISC LABS 08/24/2014 Liver, right lobe, biopsy - 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 ? Component Latest Ref Rng AND Units 05/17/2015 08/17/2015 09/21/2015 05/16/2016 11/23/2016 06/10/2017 10/10/2017 10/28/2017 10/30/2017 11/03/2017 11/04/2017 11/04/2017 11/25/2017 12/09/2017 ? 10:30 AM 12:30 PM ? ? Hemoglobin 13.0 - 17.0 g/dL 10.2 (L) 10.3 (L) 10.7 (L) 10.6 ? 7.6 (L) 7.9 6.8 (L) ? Hematocrit 39.0 - 51.0 % 32.0 (L) 32.9 (L) 34.7 (L) 32.4 (A) ? 25.6 (L) 25.6 (A) 23.8 (L) ? MCV 80.0 - 100.0 fL 102.9 (H) 94.3 91.1 ? ? 100.0 107.6 (A) 117.8 (H) ? Platelet Count 150 - 400 k/uL 65 (L) 71 (L) 89 (L) 84 ? 69 (L) ? Platelets Clumped, Estimate Low ? HGB 12 - 16 g/dL ? 9.3 (A) ? HCT 33 - 42 % ? 29.1 (A) ? Platelet 150 - 400 k/uL ? 66 (A) ? Occult Blood Source ? Stool Stool Stool ? ? Occult Blood Diagnostic ? Positive (A) Negative Negative ? ? Hep C Antibody IA Negative ? Negative ? Hemoglobin, [place] 13.0 - 17.0 g/dL ? 7.9 (L) 7.1 (L) Hematocrit, [place] 39.0 - 51.0 % ? 25.2 (L) 23.3 (L) ? ? ? Ref. Range 10/30/2017 15:36 Iron Latest Ref Range: 41 - 186 ug/dL 207 (H) Ferritin Latest Ref Range: 30.3 - 565.7 ng/mL 66.4 TIBC Latest Ref Range: 232 - 386 ug/dL 395 (H) Transferrin Saturation Latest Ref Range: 15 - 57 % 52 ?12/20/17 Triglyceride 76 RADIOLOGY 01/12/2015 RUQ US IMPRESSION: HEPATIC STEATOSIS. ?NO SUSPICIOUS FOCAL LESION. ?NO BILIARY DILATATION ? 11/05/17 NM liver IMPRESSION: No evidence for splenomegaly. ?No focal hepatic abnormality. ?Colloid shift noted consistent with cirrhosis. ? 12/19/17 CXR (At [place]) No acute cardiopulmonary findings or changes. Negative for new consolidation, focal atelectasis, pleural effusions or cardiomegaly. ? 12/20/17 RUQ US Pancreas: Normal sonographic appearance. ?? Portions obscured: tail Liver: ?? ? Echotexture: ?Normal, homogeneous. ?? ? Echogenicity: ?Increased ?? ? Surface contour: ?Nodular ?? ? Lesions: ?None. Biliary: No intrahepatic biliary duct dilation. ?? ? CBD: 0.4 cm at the hilum. ?? ? Gallbladder: ?Normal caliber ?-Contents: ?No cholelithiasis ?-Wall: ?Normal ?-Other: ?No pericholecystic fluid. Right Kidney: No hydronephrosis. ?12 mm lower pole cyst Ascites: None. Spleen: Mild splenomegaly measuring 14.1 x 5.9 x 13.3 cm. ?Calcified granulomas. ?No lesion. Incidental note is made of left renal cysts, the largest in the lower pole measuring 3.5 cm. ?No left hydronephrosis. IMPRESSION: CIRRHOTIC LIVER MORPHOLOGY. ?NO HEPATIC LESION. ? HEPATIC STEATOSIS Mild splenomegaly Bilateral renal cysts MOST RECENT EGD: 11/24/17 (Derrick Jones MD). ANGIE secondary to chronic blood loss, cirrhosis and low platelet count ?Findings: The examined esophagus was normal. ? ? ?Previously seen and nonbleeding multiple gastric polyps from last year ? ? ?are now oozing blood in multiple places throughout the stomach. The ? ? ?polyps had previously been demonstrated to be a fundic gland polyps with ? ? ?no malignancy. A biopsy was taken. Blood loss was minimal ? ? ?The examined duodenum was normal. Impression: ?- Normal esophagus. ?- Normal examined duodenum. ?Bx: Stomach, polyp, biopsy - Predominantly granulation tissue and Fibrinopurulent exudate, compatible with gastric hyperplastic polyp. - No evidence of dysplasia or carcinoma. ? MOST RECENT COLONOSCOPY: 06/02/2017 (Derrick Jones MD). Hx colon polyps - Preparation of the colon was fair. - One 10 mm polyp in the descending colon, removed with a hot snare. Resected and retrieved. Bx: Colon, descending, polypectomy (B) - Colonic mucosa with thermal artifact, favor hyperplastic polyp. ? SIGNATURE: Dina Coffman APRN.ENVELOPE STAMPING MACHINE OPERATOR DATE: December 21, 2017 TIME: 11:17 AM PROTIME Collected: 12/21/2017 Status: F Source: [place] 6:31 AM CLINIC OTHER CAMPUS REPOSITORY TYPE CODE TESTS RESULT OUT OF RANGE REFERENCE UNITS LAB PSEC 9.7-13.0 sec PT Sec 12.7 LAB INR 0.9-1.3 PT INR 1.2 Result Comment: Vitamin K Antagonist (VKA) Therapeutic Range: INR 2 to 3 (Target INR of 2.5) Note: For patients treated with VKA drugs, such as warfarin, the [place] [employer] 2012 Guideline recommends a therapeutic INR range of 2 to 3 (target INR of 2.5). This recommendation includes high-risk patients with antiphospholipid syndrome with previous arterial or venous thromboembolism, current-generation mechanical or bioprosthetic aortic heart valve replacement. Note: Patients with mechanical aortic valve replacement and additional risk factors for thromboembolic events (atrial fibrillation, previous thromboembolism, LV dysfunction, hypercoagulable conditions) or an older generation mechanical AVR (i.e., ball in-Cage) or any mechanical MVR should have a INR therapeutic range of 2.5 to 3.5 (target INR of 3). Guyatt GH, et al. Chest 2012, 141:7S-47S Venessa RA, et al. [facility] 2017, 70: 252-289 Performed By: #### PT, CMP, LIPA #### [facility] [address] [facility] [phone] COMP METABOLIC PANEL Collected: 12/21/2017 Status: F Source: [place] 6:31 AM CLINIC OTHER CAMPUS REPOSITORY TYPE CODE TESTS RESULT OUT OF REFERENCE UNITS RANGE LAB TP 6.3-8.0 g/dL Protein, Total 6.8 LAB ALB 3.9-4.9 g/dL Low Albumin 3.3 LAB CA 8.5-10.2 mg/dL Calcium, Total 8.6 LAB TBIL 0.2-1.3 mg/dL Bilirubin, High Total 1.6 LAB ALKP 36-108 U/L Alkaline Phosphatase 39 LAB AST 14-40 U/L AST 23 LAB GLU 74-99 mg/dL Glucose High 124 Result Comment: The [place] [employer] (ADA) provides guidance for cutoff values for fasting glucose and random glucose. The ADA defines fasting as no caloric intake for at least 8 hours. Fas ting plasma glucose results between 100 to 125 mg/dL indicate increased risk for diabetes (prediabetes). Fasting plasma glucose results greater than or equal to 126 mg/dL meet the criteria for diagnosis of diabetes. In the absence of unequivocal hyperglycemia, results should be confirmed by repeat testing. In a patient with classic symptoms of hyperglycemia or hyperglycemic crisis, random plasma glucose results greater than or equal to 200 mg/dL meet the criteria for diagnosis of diabetes. Reference: Standards of Medical Care in Diabetes 2016, [place] [employer]. Diabetes Care. 2016.39(Suppl 1). LAB BUN 9-24 mg/dL BUN High 39 LAB CRET 0.73-1.22 mg/dL Creatinine High 1.96 LAB NA 136-144 mmol/L Sodium 140 LAB K 3.7-5.1 mmol/L Potassium 5.1 LAB CL 97-105 mmol/L Chloride 104 LAB CO2 22-30 mmol/L CO2 25 LAB AGAP 9-18 mmol/L Anion Gap 11 LAB ALT 10-54 U/L ALT 15 LAB GFRAA eGFR- Amer. 40 LAB GFRNAA . eGFR-All Other Races 33 Result Comment: eGFR (Estimated GFR) Units of measure: mL/min/1.73 meters squared eGFR is derived from the reexpressed MDRD Study equation using the following parameters: serum creatinine, age, gender and race. The creatinine assay has been calibrated to be traceable to IDKS. An eGFR <60 mL/min/1.73m2 for >3 months is consistent with chronic kidney disease. Refer to KDOQI guidelines for clinical interpretation. In patients with unstable renal function, e.g. those with acute kidney injury, the eGFR may not accurately reflect actual GFR. Performed By: #### PT, CMP, LIPA #### [facility] [address] [place] [address] LIPASE Collected: 12/21/2017 Status: F Source: [place] 6:31 AM [facility] OTHER [place] REPOSITORY TYPE CODE TESTS RESULT OUT OF REFERENCE UNITS RANGE LAB LIPA 16-61 U/L Lipase 54 Performed By: #### PT, CMP, LIPA #### [facility] [address] [place] [address] CBC Collected: 12/21/2017 Status: F Source: [place] 6:31 AM [facility] OTHER [place] REPOSITORY TYPE CODE TESTS RESULT OUT OF REFERENCE UNITS RANGE LAB WBC 3.70-11.00 k/uL WBC 4.01 LAB RBC 4.20-6.00 m/uL Low RBC 2.30 LAB HGB 13.0-17.0 g/dL Low Hemoglobin 7.7 LAB HCT 39.0-51.0 % Low Hematocrit 25.3 LAB MCV 80.0-100.0 fL MCV High 110.0 LAB MCH 26.0-34.0 pG MCH 33.5 LAB MCHC 30.5-36.0 g/dL Low MCHC 30.4 LAB RDWCV 11.5-15.0 % RDW-CV High 22.0 LAB PLTCT 150-400 k/uL Low Platelet Count 72 LAB MPV 9.0-12.7 fL MPV High 12.9 Performed By: #### CBC #### [facility] [address] [place] [address] HEMOGLOBIN Collected: 12/21/2017 Status: F Source: [place] 1:14 AM [facility] REPOSITORY TYPE CODE TESTS RESULT OUT OF REFERENCE UNITS RANGE LAB HGB 13.0-17.0 g/dL Low Hemoglobin 7.9 Performed By: #### HGB #### [facility] [address] [place] [address] PROGRESS Observed: 12/20/2017 Status: COMPLETED Source: [place] 3:34 PM CLINIC OTHER CAMPUS REPOSITORY HNO ID: [id number] Author: Maile Whittington Service: Hospital Medicine Author Type: Physician Type: Progress Notes Filed: 12/20/2017 3:36 PM Note Text: SHORT HOSPITALIST PROGRESS NOTE Name: Hang Meza SERVICE DATE: 12/20/2017 SERVICE TIME: 3:34 PM Hospital Medicine/Primary Attending: Maile Whittington MD NIGHT COVERAGE BETWEEN 5.30P-7.30A Page [id number] Patient seen and eval. Reviewed orders and HANDP from this AM. His Hb is 6.6, will be transfused 2 units. IVFat 150cc/hr. Cholesterol wnl. URQ US shows cirrhosis but no acute cholecystitis. On Protonix BID and Carafate. DATA: Diagnostic tests reviewed for today's visit: Most recent labs CBC: WBC 5.41 12/20/2017 Hemoglobin 6.4 12/20/2017 HCT 21.6 12/20/2017 Platelet 78 12/20/2017 CMP: Sodium 136 12/20/2017 Potassium 4.8 12/20/2017 BUN 45 12/20/2017 Creatinine 1.91 12/20/2017 Glucose 132 12/20/2017 Chloride 99 12/20/2017 CO2 25 12/20/2017 Plan of care discussed with: Patient SIGNATURE: Maile Whittington MD DATE: December 20, 2017 TIME: 3:34 PM CASE MGT INIT Observed: 12/20/2017 Status: COMPLETED [facility] OTHER CAMP[facility] REPOSITORY HNO ID: [id number] Author: Dayan (Rn) ANAND Saavedra Service: Care Management Author Type: Registered Nurse Type: Care Mgt Initial Assessment Filed: 12/20/2017 1:25 PM Note Text: CARE MANAGEMENT: ASSESSMENT AND DISCHARGE PLAN SERVICE DATE: 12/20/2017 SERVICE TIME: 1:13 PM PRIMARY CARE PHYSICIAN: Kayla Bernstein APRN.CNP (confirmed) ADMISSION STATUS: Inpatient Needs Prior to Discharge: To Be Determined 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 Health Issues Impacting Discharge Plan: Newly diagnosed Acute Pancreatitis, HX Arotic Valve Stenosis, DM, Cirrhosis, Stroke, Gerd, Last Admission Date: none Is this Within the Past 30 days? No Advance Directive: Current Advance Directive: None [employer] Assisted with AD Completion: No Health Literacy: 1. How often do you need to have someone help you when you read instructions, pamphlets, or other written material from your doctor or pharmacy? Always - 5 2. How confident are you filling out medical forms by yourself? Not at all - 5 If Patient scores > 3 on either question, the following interventions were put into place: involve dtr Addie with all information/education. FUNCTIONAL AND COGNITIVE/BEHAVIORAL PRIOR TO ADMISSION: Baseline Mental Status: Alert AND Oriented, Person, Place and Time Functional Status: Dependent Does Patient Currently Receive Any Community Services or Home Care? Passport waiver program Zaki Alisha [phone] Equipment Prior to Admission: Cane - Quadrant Glucometer Incontinence supplies Rollator Scooter Walker Alert bracelet. Has the Patient Been in a Group Home Facility in the Past 30 days? N/A SOCIAL: Living Arrangement: Home Lives With: Andriy Real Financial Resources: Retired Primary Contact: Extended Emergency Contact Information Primary Emergency Contact: Addie Meza Address: [address] [place] [id number] Relation: Daughter Supportive: Yes primary financial reporting advisor Other Important Patient Contacts: None Caregiver Assessment: Caregiver is ready, willing and able to meet the patient's needs as recommended by the inter-professional team? Yes Patient's transition needs and plan for meeting these needs: return home with dtr Addie Does the patient have an acute stroke diagnosis, or has the patient had a stroke during this admission? No Medication Adherence: I am convinced of the importance of my prescription medication: Agree completely - 0 I worry that my prescription medication will do more harm than good to me Disagree completely - 0 I feel financially burdened by my [id number] expenses for my prescription medication: Disagree completely - 0 Patient is categorized as low risk < 2 Are you interested in bedside delivery of your medications? Yes If immediate medication need. Otherwise they can be called into [facility] Food Concerns: In the Last Month, Have You had Trouble Getting Food? No trouble getting food During the Last Month, Have You Worried Whether Your Food Would Run Out Before You Had Enough Money to Buy More? No Is the Patient Psychosocially Complex? No ASSESSMENT AND PLAN: Medical Needs: 2 or more chronic diseases and Fall risk or frequent falls Psychosocial Needs: None FREEDOM OF CHOICE EXPLAINED: N/A POTENTIAL TRANSITION PLANS Home Waiver CM met with pt at bedside. Pt states he is from home with his daughter Addie. States they live in a house basement but they have ground access and he does not have to climb stairs. He ambulates with a Cane but also uses a rolator. He is getting a lift chair in 2 weeks. States his daughter is his primary financial reporting advisor. She assists with showers, cooking, cleaning, groceries and driving to medical appointments. Pt states he manages his own medications. Pt gives CM permission to speak to his daughter Kylie. CM spoke with pt's daughter Feng is active with [facility] program. His daughter provides care 2 hours a day thru [facility], they have nurse Grisel available if they need nursing. [facility] Application Chemist is Rhonda Brito [phone]. Addie would like pt to return home with her, she will transport. Pt has an appointment scheduled with Aly Bernstein NP on February 02, 2018. SIGNATURE: Dayan Saavedra RN PATIENT NAME: Hang Meza DATE: December 20, 2017 TIME: 1:13 PM PAGER/CONTACT #: [phone] NURSING PROG Observed: 12/20/2017 Status: COMPLETED Source: [place] 12:17 PM CLINIC OTHER CAMPUS REPOSITORY O ID: [id number] Author: Mary Alice (Rn) ANAND Shoemaker Service: (none) Author Type: Registered Nurse Type: Nursing Progress Note Filed: 12/20/2017 8:21 PM Note Text: Nursing Progress Note Patient Name: Hang Meza Patient Location: [id number] Daily Note: 0836: Medicated for pain and nausea per orders. No respiratory distress. IV fluids running. 0930: Instructed to hold ASA at this time per Dina Coffman ENVELOPE STAMPING MACHINE OPERATOR. 1030: IV fluid rate increased per orders. ABD pain present, but tolerable. No respiratory distress. No needs. 1524: 1st unit PRBC started at this time. VSS. Educated on possible blood transfusion reactions. All questions answered. 1539: VSS remain stable. Patient asymptomatic. PRBC continues to infuse without difficulty. 193: 2nd unit RBC started per orders. VSS. No respiratory distress. 1952: 2nd unit PRBC continues to infuse without difficulty. VSS. No needs. This note was completed by: Mary Alice Shoemaker RN TYPE AND SCREEN Collected: 12/20/2017 Status: F Source: [place] 11:25 AM [facility] REPOSITORY TYPE CODE TESTS RESULT OUT OF REFERENCE UNITS RANGE LAB %ABR A ABO/RH(D) POSITIVE LAB % Antibody NEG Screen Performed By: #### TSCR #### [facility] [address] [place] [address] US ABD SPLEEN -NB Observed: 12/20/2017 Status: F Source: [place] 9:45 AM [facility] REPOSITORY * * *Final Report* * * DATE OF EXAM: Dec 20 2017 9:45AM MDU 1232 - US ABD SPLEEN -NB / PROCEDURE REASON: Acute pancreatitis * * * * Physician Interpretation * * * * EXAMINATION: RIGHT UPPER QUADRANT AND SPLEEN ULTRASOUND HISTORY: Acute pancreatitis TECHNIQUE: Sonography of the right upper quadrant and spleen was performed. Images were obtained and stored in a permanent archive. MQ: URUQ_1 COMPARISON: 01/12/2015 RESULT: Pancreas: Normal sonographic appearance. Portions obscured: tail Liver: Echotexture: Normal, homogeneous. Echogenicity: Increased Surface contour: Nodular Lesions: None. Biliary: No intrahepatic biliary duct dilation. CBD: 0.4 cm at the hilum. Gallbladder: Normal caliber -Contents: No cholelithiasis -Wall: Normal -Other: No pericholecystic fluid. Right Kidney: No hydronephrosis. 12 mm lower pole cyst Ascites: None. Spleen: Mild splenomegaly measuring 14.1 x 5.9 x 13.3 cm. Calcified granulomas. No lesion. Incidental note is made of left renal cysts, the largest in the lower pole measuring 3.5 cm. No left hydronephrosis. IMPRESSION: CIRRHOTIC LIVER MORPHOLOGY. NO HEPATIC LESION. HEPATIC STEATOSIS Mild splenomegaly Bilateral renal cysts Wicker Worker: SHANI Transcribe Date/Time: Dec 20 2017 12:55P Dictated by : ANDI GURROLA MD This examination was interpreted and the report reviewed and electronically signed by: ANDI GURROLA MD on Dec 20 2017 12:59PM EST [id number] US ABD RIGHT UPPER Observed: 12/20/2017 Status: F Source: [facility] 9:45 AM CLINIC OTHER CAMPUS REPOSITORY * * *Final Report* * * DATE OF EXAM: Dec 20 2017 9:45AM KAREN 1032 - US ABD RIGHT UPPER QUADRANT / PROCEDURE REASON: Acute pancreatitis * * * * Physician Interpretation * * * * EXAMINATION: RIGHT UPPER QUADRANT AND SPLEEN ULTRASOUND HISTORY: Acute pancreatitis TECHNIQUE: Sonography of the right upper quadrant and spleen was performed. Images were obtained and stored in a permanent archive. MQ: URUQ_1 COMPARISON: 01/12/2015 RESULT: Pancreas: Normal sonographic appearance. Portions obscured: tail Liver: Echotexture: Normal, homogeneous. Echogenicity: Increased Surface contour: Nodular Lesions: None. Biliary: No intrahepatic biliary duct dilation. CBD: 0.4 cm at the hilum. Gallbladder: Normal caliber -Contents: No cholelithiasis -Wall: Normal -Other: No pericholecystic fluid. Right Kidney: No hydronephrosis. 12 mm lower pole cyst Ascites: None. Spleen: Mild splenomegaly measuring 14.1 x 5.9 x 13.3 cm. Calcified granulomas. No lesion. Incidental note is made of left renal cysts, the largest in the lower pole measuring 3.5 cm. No left hydronephrosis. IMPRESSION: CIRRHOTIC LIVER MORPHOLOGY. NO HEPATIC LESION. HEPATIC STEATOSIS Mild splenomegaly Bilateral renal cysts Wicker Worker: [facility] Transcribe Date/Time: Dec 20 2017 12:55P Dictated by : ANDI GURROLA MD This examination was interpreted and the report reviewed and electronically signed by: ANDI GURROLA MD on Dec 20 2017 12:59PM EST [id number] CONSULT Observed: 12/20/2017 Status: COMPLETED Source: [place] 8:43 AM CLINIC OTHER CAMPUS REPOSITORY HNO ID: [id number] Author: Irene Rodrigues Service: Gastroenterology Author Type: Physician Type: Consults Filed: 12/20/2017 10:47 AM Note Text: GASTROENTEROLOGY CONSULT NOTE PATIENT NAME: Hang Meza SERVICE DATE: December 20, 2017 SERVICE TIME: 8:43 AM PRIMARY CARE PHYSICIAN: Kayla Bernstein APRN.ENVELOPE STAMPING MACHINE OPERATOR ATTENDING PHYSICIAN: Dr. Han REASON FOR ADMISSION/CONSULTATION: Acute pancreatitis HPI: This is a 77 year old male with a past medical history significant for HTN, DM, hypothyroidism, GERD, cirrhosis (follows with Dr. Jones and Dr. Cerrato), anemia of chronic disease (followed by policy loan calculator Dr. Pardo and recently started on Aranesp) and CKD Stage III who presented to [place] [facility] 12/19/17,with epigastric pain with nausea and vomiting after eating a sandwich (roast beef, turkey, ham and bologne). Associated nausea with nonbilious emesis(denied hematemesis or CGE) immediately after eating sandwich and generalized abdominal pain that radiated to his back. States pain was 10/10 and no previous pain in the past. Sons at bedside and report patient reported increased recent heartburn and has been using Tums. Reports compliance with Protonix 40 mg daily as well as Carafate QID. In the ER, he was found to have lipase > 4000. CXR with no acute abnormalities. No abdominal imaging obtained. He denies ETOH use or previous hx or pancreatitis. States started Carafate after recent EGD but otherwise no other medications. He was transferred to [facility] for further evaluation and GI consult has been requested for additional management. A RUQ US has just been completed. He reports pain is currently 5/10. Reported nausea but no further vomiting. He denies dysphagia or odynophagia. Normally reports BMs ~ TID without blood or mucous. No reports of hematochezia or melena. Home medication significant for ASA 81 mg daily, Lactulose 30 ml daily, Aldactone 50 mg daily, Rifaximin 550 mg po BID, metamucil daily, Lasix 40 mg every other day, He denies prior blood transfusion although it has been discussed recently. 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 Disp: 30 tablet Rfl: 3 12/19/2017 at Unknown time sucralfate (CARAFATE) 1 gram tablet Take 1 tablet by mouth four times daily. Disp: 120 tablet Rfl: 5 12/19/2017 at Unknown time ferrous sulfate 325 mg (65 mg iron) tablet Take 1 tablet by mouth daily with breakfast. Disp: 30 tablet Rfl: 5 12/19/2017 at Unknown time glipiZIDE (GLUCOTROL) 5 mg tablet Take 1 tablet by mouth daily before breakfast. Disp: 90 tablet Rfl: 3 12/19/2017 at Unknown time levothyroxine (SYNTHROID) 25 mcg tablet Take 1 tablet by mouth once daily. Disp: 30 tablet Rfl: 3 12/19/2017 at Unknown time spironolactone (ALDACTONE) 50 mg tablet Take 1 tablet by mouth once daily. Disp: Rfl: 12/19/2017 at Unknown time metoprolol tartrate, short acting, (LOPRESSOR) 25 mg tablet Take 1 tablet by mouth twice daily. Disp: 180 tablet Rfl: 3 12/19/2017 at Unknown time pantoprazole DR (PROTONIX) 40 mg tablet Take 1 tablet by mouth once daily. 30 minutes before eating. Disp: 30 tablet Rfl: 11 12/19/2017 at Unknown time aspirin, enteric coated (ASPIRIN, ENTERIC COATED) 81 mg EC tablet Take 81 mg by mouth once daily. as needed Disp: Rfl: 12/19/2017 at Unknown time lactulose (ENULOSE) 10 gram/15 mL solution Take 30 mL by mouth once daily. Disp: 1000 mL Rfl: 11 12/19/2017 at Unknown time rifaximin (XIFAXAN) 550 mg tab Take 1 tablet by mouth twice daily. Disp: 60 tablet Rfl: 11 12/19/2017 at Unknown time insulin lispro (HUMALOG KWIKPEN) 100 unit/mL pen 12 u with breakfast, 22 u with lunch, 15 u with dinner plus 2 u per 50 > 150 TDD 90 units Disp: 10 Pen Rfl: 11 11/23/2017 at 1700 PSYLLIUM HUSK (METAMUCIL ORAL) Take by mouth once daily. Disp: Rfl: 11/23/2017 at Unknown time loratadine (CLARITIN) 10 mg tablet Take 10 mg by mouth once daily. as needed Disp: Rfl: Unknown at Unknown time desoximetasone (TOPICORT) 0.25 % cream Apply thin layer twice daily Disp: 60 g Rfl: 1 11/23/2017 at 2100 insulin glargine (LANTUS) 100 unit/mL (3 mL) inpn Inject 25 Units subcutaneously twice daily. Disp: 45 mL Rfl: 3 11/23/2017 at 2100 lancets (FREESTYLE LANCETS) 28 gauge misc Test blood glucose 4 times daily Disp: 400 Each Rfl: 3 11/24/2017 at 0601 blood sugar diagnostic (FREESTYLE TEST) test strip Test blood glucose 4 times daily Disp: 400 Strip Rfl: 3 11/24/2017 at 0601 Insulin [place], Disposable, (BD ULTRAFINE III MINI PEN) 31 gauge x 11/07 ndle USE WITH INSULIN PENS 4 TIMES DAILY Disp: 400 Each Rfl: 3 11/23/2017 at 2100 furosemide (LASIX) 40 mg tablet Take 40 mg by mouth every other day. Disp: Rfl: 11/22/17 Methylcellulose, Laxative, (FIBER THERAPY) 500 mg tab Take 500 mg by mouth DAILY. Disp: Rfl: 11/23/2017 at Unknown time miconazole (LOTRIMIN AF, DESENEX) 2 % powder Apply 1 application to affected area twice daily. Disp: 50 g Rfl: 0 Unknown at Unknown time meclizine (ANTIVERT) 25 mg tab Take 1 tablet by mouth three times daily as needed. Disp: 20 tablet Rfl: 0 Unknown at Unknown time Current Hospital Medications: Current hospital medications: rifAXIMin 550 mg tab(s) (XIFAXAN) 550 mg ORAL BID aspirin, enteric coated 81 mg tab(s) (ASPIRIN, ENTERIC COATED) 81 mg ORAL DAILY pantoprazole DR 40 mg tab(s) (PROTONIX) 40 mg ORAL DAILY metoprolol tartrate (short acting) 25 mg tab(s) (LOPRESSOR) 25 mg ORAL BID spironolactone 50 mg tab(s) (ALDACTONE) 50 mg ORAL DAILY levothyroxine 25 mcg tab(s) (SYNTHROID) 25 mcg ORAL DAILY simvastatin 20 mg tab(s) (ZOCOR) 20 mg ORAL DAILY 0.9% NaCl 3-5 mL 3-5 mL INTRAVENOUS q 12 H NaCl 0.9% iv infusion 100 mL/hr INTRAVENOUS CONTINUOUS ondansetron orally disintegrating 4 mg tab(s) (ZOFRAN ODT) 4 mg ORAL q 6 H PRN ondansetron (PF) 4 mg injection (ZOFRAN) 4 mg INTRAVENOUS q 6 H PRN acetaminophen 650 mg tab(s) (TYLENOL) 650 mg ORAL q 6 H PRN morphine 1-2 mg injection 1-2 mg INTRAVENOUS q 4 H PRN dextrose 40 % 15 g 15 g ORAL PRN glucagon 1 mg injection (GLUCAGEN) 1 mg INTRAMUSCULAR PRN dextrose 50% in water 25 mL syringe 12.5 g INTRAVENOUS PRN insulin lispro injection (rapid acting) (HumaLOG) SUBCUTANEOUS q 6 H FAMILY HISTORY: No significant family history of GI related diseases or malignancies SOCIAL HISTORY: Marital status: Children: 5 Alcohol use: Denies recent use. Reports 1 beer per day but states quit at age 44 Tobacco use: Former cigar smoker- quit 2002 REVIEW OF SYSTEMS: CONSTITUTIONAL: No fevers, chills, night sweats, unintended weight loss HEENT: Denies frequent or severe headaches EYES: No diplopia or blurry vision CARDIOVASCULAR: No chest pain, dyspnea, palpitations, orthopnea, PND, ankle edema PULM: No dyspnea, unexplained cough GI: Per HPI : No new urinary complaints, including; dysuria, gross hematuria or pyuria NEURO: No dizziness, lightheadedness or vertigo MUSC/SKEL: No new joint pain, swelling, or erythema PSYCH: No concerns regarding depression, anxiety or panic INTEGUMENTARY: No new skin changes (rash, new or changing mole, new growth) PHYSICAL EXAM: Patient Vitals for the past 24 hrs: BP Temp Temp src Pulse Resp SpO2 Height Weight 12/20/17 0741 126/63 37.2 ?C (99 ?F) Oral 87 19 96 % - - 12/20/17 0600 - - - - - - 175.3 cm (5' 9) 129.3 kg (285 lb) Body mass index is 42.09 kg/m?. GENERAL: Alert AND oriented x 3. Cooperative. NAD EYES: No scleral icterus SKIN: Pale in color. No jaundice LUNGS: Clear to auscultation anteriorly CARDIAC: RRR with systolic murmur ABDOMEN: BS x 4. Abdomen obese, soft. Generalized tenderness but most pronounced to epigastrium. Mildly distended. No palpable masses or organomegaly. No guarding or rebound tenderness elicited EXTREMITIES: No upper or lower extremity edema LABS: Diagnostic tests reviewed for today's visit: CBC, Coags, BMP, Mg, Phos Recent Labs 12/20/17 0634 NA 136 K 4.8 CHLOR 99 CO2 25 BUN 45* CREAT 1.91* GLUC 132* CA 9.0 Component Latest Ref Rng AND Units 12/20/2017 WBC 3.70 - 11.00 k/uL 5.41 RBC 4.20 - 6.00 m/uL 1.88 (L) Hemoglobin 13.0 - 17.0 g/dL 6.4 (L) Hematocrit 39.0 - 51.0 % 21.6 (L) MCV 80.0 - 100.0 fL 114.9 (H) MCH 26.0 - 34.0 pG 34.0 MCHC 30.5 - 36.0 g/dL 29.6 (L) RDW-CV 11.5 - 15.0 % 16.5 (H) Platelet Count 150 - 400 k/uL 78 (L) MPV 9.0 - 12.7 fL 12.3 Liver Function, Amylase, AND Lipase Recent Labs 12/20/17 0634 LIPASE >600* 12/19/17 (At [facility]) Hgb 7.1 Hct 22.6 MCV 111.3 PLT 84 K 5.7 BUN 48 Cr 2.18 TB 0.7 AST 48 ALT 26 AP 46 Lipase 4224 (normal range 73-393) MISC LABS 08/24/2014 Liver, right lobe, biopsy - 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 Component Latest Ref Rng AND Units 05/17/2015 08/17/2015 09/21/2015 05/16/2016 11/23/2016 06/10/2017 10/10/2017 10/28/2017 10/30/2017 11/03/2017 11/04/2017 11/04/2017 11/25/2017 12/09/2017 10:30 AM 12:30 PM Hemoglobin 13.0 - 17.0 g/dL 10.2 (L) 10.3 (L) 10.7 (L) 10.6 7.6 (L) 7.9 6.8 (L) Hematocrit 39.0 - 51.0 % 32.0 (L) 32.9 (L) 34.7 (L) 32.4 (A) 25.6 (L) 25.6 (A) 23.8 (L) MCV 80.0 - 100.0 fL 102.9 (H) 94.3 91.1 100.0 107.6 (A) 117.8 (H) Platelet Count 150 - 400 k/uL 65 (L) 71 (L) 89 (L) 84 69 (L) Platelets Clumped, Estimate Low HGB 12 - 16 g/dL 9.3 (A) HCT 33 - 42 % 29.1 (A) Platelet 150 - 400 k/uL 66 (A) Occult Blood Source Stool Stool Stool Occult Blood Diagnostic Positive (A) Negative Negative Hep C Antibody IA Negative Negative Hemoglobin, Renita 13.0 - 17.0 g/dL 7.9 (L) 7.1 (L) Hematocrit, Renita 39.0 - 51.0 % 25.2 (L) 23.3 (L) Ref. Range 10/30/2017 15:36 Iron Latest Ref Range: 41 - 186 ug/dL 207 (H) Ferritin Latest Ref Range: 30.3 - 565.7 ng/mL 66.4 TIBC Latest Ref Range: 232 - 386 ug/dL 395 (H) Transferrin Saturation Latest Ref Range: 15 - 57 % 52 RADIOLOGY 01/12/2015 RUQ US IMPRESSION: HEPATIC STEATOSIS. ?NO SUSPICIOUS FOCAL LESION. ?NO BILIARY DILATATION 11/05/17 NM liver IMPRESSION: No evidence for splenomegaly. ?No focal hepatic abnormality. ?Colloid shift noted consistent with cirrhosis. 4/27/18 CXR (At [place]) No acute cardiopulmonary findings or changes. Negative for new consolidation, focal atelectasis, pleural effusions or cardiomegaly. MOST RECENT EGD: 11/24/17 (Derrick Jones MD). ANGIE secondary to chronic blood loss, cirrhosis and low platelet count ?Findings: The examined esophagus was normal. ? ? ?Previously seen and nonbleeding multiple gastric polyps from last year ? ? ?are now oozing blood in multiple places throughout the stomach. The ? ? ?polyps had previously been demonstrated to be a fundic gland polyps with ? ? ?no malignancy. A biopsy was taken. Blood loss was minimal ? ? ?The examined duodenum was normal. Impression: ?- Normal esophagus. ?- Normal examined duodenum. ?Bx: Stomach, polyp, biopsy - Predominantly granulation tissue and Fibrinopurulent exudate, compatible with gastric hyperplastic polyp. - No evidence of dysplasia or carcinoma. MOST RECENT COLONOSCOPY: 06/02/2017 (Derrick Jones MD). Hx colon polyps - Preparation of the colon was fair. - One 10 mm polyp in the descending colon, removed with a hot snare. Resected and retrieved. Bx: Colon, descending, polypectomy (B) - Colonic mucosa with thermal artifact, favor hyperplastic polyp. ASSESSMENT 1- Acute pancreatitis- DDx should include gallstone induced, hypertriglyceridemia, medication effect 2- Acute on chronic macrocytic anemia 3- Cirrhosis complicated by anemia, thrombocytopenia- suspect CARBAJAL 4- Hx colon polyps / gastric polyps oozing at time of last EGD 11/24/17 / GERD 5- DM PLAN - NPO - IVF: NS @ 150 ml/hr - Obtain RUQ US as ordered - Check triglycerides - Daily lipase, CBC, CMP, INR - Monitor for overt/occult blood loss - Transfuse 2 units of PRBC's - Stool log - Continue Rifaximin 550 mg po BID - Continue Protonix 40 mg but increase to BID - Resume Carafate 1 g po QID as per home regimen - Aldactone 50 mg po daily - Further recommendations pending clinical course and results of above Thank you for the opportunity to participate in the care of this patient. I will continue to follow with you. SIGNATURE: Irene Rodriguse MD DATE: December 20, 2017 TIME: 8:43 AM BASIC METABOLIC PANL Collected: 12/20/2017 Status: F Source: [place] 6:34 AM CLINIC OTHER CAMPUS REPOSITORY TYPE CODE TESTS RESULT OUT OF REFERENCE UNITS RANGE LAB GLU 74-99 mg/dL High Glucose 132 Result Comment: The [place] [employer] (ADA) provides guidance for cutoff values for fasting glucose and random glucose. The ADA defines fasting as no caloric intake for at least 8 hours. Fas ting plasma glucose results between 100 to 125 mg/dL indicate increased risk for diabetes (prediabetes). Fasting plasma glucose results greater than or equal to 126 mg/dL meet the criteria for diagnosis of diabetes. In the absence of unequivocal hyperglycemia, results should be confirmed by repeat testing. In a patient with classic symptoms of hyperglycemia or hyperglycemic crisis, random plasma glucose results greater than or equal to 200 mg/dL meet the criteria for diagnosis of diabetes. Reference: Standards of Medical Care in Diabetes 2016, [place] [employer]. Diabetes Care. 2016.39(Suppl 1). LAB BUN 9-24 mg/dL BUN High 45 LAB CRET 0.73-1.22 mg/dL Creatinine High 1.91 LAB NA 136-144 mmol/L Sodium 136 LAB K 3.7-5.1 mmol/L Potassium 4.8 LAB CL 97-105 mmol/L Chloride 99 LAB CO2 22-30 mmol/L CO2 25 LAB AGAP 9-18 mmol/L Anion Gap 12 LAB CA 8.5-10.2 mg/dL Calcium, Total 9.0 LAB GFRAA eGFR- Amer. 41 LAB GFRNAA . eGFR-All Other Races 34 Result Comment: eGFR (Estimated GFR) Units of measure: mL/min/1.73 meters squared eGFR is derived from the reexpressed MDRD Study equation using the following parameters: serum creatinine, age, gender and race. The creatinine assay has been calibrated to be traceable to IDMS. An eGFR <60 mL/min/1.73m2 for >3 months is consistent with chronic kidney disease. Refer to KDOQI guidelines for clinical interpretation. In patients with unstable renal function, e.g. those with acute kidney injury, the eGFR may not accurately reflect actual GFR. Performed By: #### BMP, LIPA, CBC #### [facility] [address] [place] [address] LIPASE Collected: 12/20/2017 Status: F Source: [place] 6:34 AM [facility] OTHER CAMPUS REPOSITORY TYPE CODE TESTS RESULT OUT OF REFERENCE UNITS RANGE LAB LIPA 16-61 U/L High Lipase >600 Result Comment: Rechecked Performed By: #### BMP, LIPA, CBC #### [facility] [address] [place] [address] CBC Collected: 12/20/2017 Status: F Source: [place] 6:34 AM [facility] OTHER CAMPUS REPOSITORY TYPE CODE TESTS RESULT OUT OF REFERENCE UNITS RANGE LAB WBC 3.70-11.00 k/uL WBC 5.41 LAB RBC 4.20-6.00 m/uL Low RBC 1.88 LAB HGB 13.0-17.0 g/dL Low Hemoglobin 6.4 LAB HCT 39.0-51.0 % Low Hematocrit 21.6 LAB MCV 80.0-100.0 fL MCV High 114.9 LAB MCH 26.0-34.0 pG MCH 34.0 LAB MCHC 30.5-36.0 g/dL Low MCHC 29.6 LAB RDWCV 11.5-15.0 % RDW-CV High 16.5 LAB PLTCT 150-400 k/uL Low Platelet Count 78 Result Comment: Platelet count confirmed by manual review of pheripheral blood smear. LAB MPV 9.0-12.7 fL MPV 12.3 Performed By: #### BMP, LIPA, CBC #### [facility] [address] [place] [address] HEPATIC FUNCTN PANEL Collected: 12/20/2017 Status: F Source: [place] 6:34 AM [facility] OTHER CAMPUS REPOSITORY TYPE CODE TESTS RESULT OUT OF REFERENCE UNITS RANGE LAB ALB 3.9-4.9 g/dL Low Albumin 3.4 LAB TBIL 0.2-1.3 mg/dL Bilirubin, Total 0.9 LAB CBIL <0.2 mg/dL High Bilirubin,Conjuga 0.3 ferdinand LAB ALKP 36-108 U/L Alkaline Phosphatase 41 LAB AST 14-40 U/L AST 22 LAB ALT 10-54 U/L ALT 16 LAB TP 6.3-8.0 g/dL Protein, Total 7.1 Performed By: #### HFP #### [facility] [address] [place] [address] LIPID PANEL, BASIC Collected: 12/20/2017 Status: F Source: [place] 6:34 AM [facility] OTHER CAMPUS REPOSITORY TYPE CODE TESTS RESULT OUT OF REFERENCE UNITS RANGE LAB CHOL <200 mg/dL Cholesterol 87 Result Comment: <200 mg/dL, Desirable 200-239 mg/dL, Borderline high >239 mg/dL, High LAB TRIGLY <150 mg/dL Triglyceride 69 Result Comment: <150 mg/dL, Normal 150-199 mg/dL, Borderline high 200-499 mg/dL, High >499 mg/dL, Very high LAB HDL >39 mg/dL HDL-Cholesterol Low 34 Result Comment: 40-59 mg/dL, Acceptable >59 mg/dL, High: Negative risk factor for coronary heart disease <40 mg/dL, Low: Positive risk factor for coronary heart disease LAB LDL <100 mg/dL LDL-Cholesterol 39 Result Comment: <100 mg/dL, Optimal 100-129 mg/dL, Near optimal/above optimal 130-159 mg/dL, Borderline high 160-189 mg/dL, High >189 mg/dL, Very high Secondary prevention optimal LDL Cholesterol levels are recommended to be < 70 mg/dL LAB NONHDL <130 mg/dL Non HDL Cholesterol 53 Result Comment: <130 mg/dL, Optimal 130-159 mg/dL, Near optimal/above optimal 160-189 mg/dL, Borderline high 190-219 mg/dL, High >219 mg/dL, Very high Secondary prevention optimal non HDL Cholesterol levels are recommended to be < 100 mg/dL LAB FT hrs Fasting Time Unknown LAB VLDL <30 mg/dL VLDL Cholesterol 14 LAB TCHDL <5.10 TC:HDL Ratio 2.56 LAB LDLHDL <2.54 LDL:HDL Ratio 1.15 Result Comment: Reference: 1. National Cholesterol Education Program ATP III Guideline At-A-Glance Quick Desk Reference: National Heart, Lung, and Blood [place]. National Institutes of Health. 2001: NIH Publication No. 01-3305. 2. An International Atherosclerosis Society position paper: global recommendations for the management of dyslipidemia: executive summary, Atherosclerosis. 2014: 232(2):410-413. Performed By: #### LIPB #### [facility] [address] [place], [place] [address] TRIGLYCERIDE Collected: 12/20/2017 Status: F Source: [place] 6:34 AM CLINIC OTHER CAMPUS REPOSITORY TYPE CODE TESTS RESULT OUT OF REFERENCE UNITS RANGE LAB TRIGLY <150 mg/dL Triglyceride 76 Result Comment: <150 mg/dL, Normal 150-199 mg/dL, Borderline high 200-499 mg/dL, High >499 mg/dL, Very high Reference: 1. National Cholesterol Education Program ATP III Guideline At-A-Glance Quick Desk Reference: National Heart, Lung, and Blood [place]. National Institutes of Health. 2001: NIH Publication No. 01-3305. LAB FT hrs Fasting Time 8 Performed By: #### TRIG #### [facility] [address] [facility] [phone] [facility] [address] [address] HISTORY PHYSICAL Observed: 12/20/2017 Status: COMPLETED Source: [place] 4:25 AM CLINIC OTHER CAMPUS REPOSITORY HNO ID: [id number] Author: Brian Han Service: Hospital Medicine Author Type: Physician Type: HANDP Filed: 12/20/2017 5:18 AM Note Text: DEPARTMENT OF HOSPITAL MEDICINE HISTORY AND PHYSICAL EXAM SERVICE DATE: 12/20/2017 SERVICE TIME: 4:25 AM Primary Care Physician: Kayla Bernstein APRN.[facility] NIGHT AND WEEKEND COVERAGE: Nights: Please contact pager [phone]. Subjective HPI 77 Y M with PMH of HTN, DM, hypothyroidism, GERD, Liver cirrhosis, who is transferred from [facility] for acute pancreatitis. Pt reports after his lunch yesterday he started to have nausea, epigastric pain so he was taken to the ED. His work up showed elevated lipase in 4000's, so transferred here for further management. He received IV fluids in the ED, pain is much better now, nausea resolved. non alcoholic. He still has his gall bladder, never had gall stones. Never had pancreatitis before. 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 PAST SURGICAL HISTORY Procedure Laterality Date - COLONOSCOP W/ OR W/O BRSH SPEC 06/02/2017 2 year repeat/hard IV stick - COLONOSCOPY 2013 - EGD 2013, 08/08 - EGD W/O OR W/BRUSH/WASH 06/02/2017 EGD - KIDNEY SURGERY HX - PAST SURGICAL HISTORY OF 2013 umbilical hernia repair - PAST SURGICAL HISTORY OF prostate biopsy FAMILY HISTORY Problem Relation Age of Onset - Heart Father MA - Prostate Cancer Father - Diabetes Mother - Breast Cancer Sister - Heart Brother - prescott [OTHER] Brother Social History Substance Use Topics - Smoking status: Former Smoker Years: 10.00 Types: Cigars Quit date: 11/07/2002 - Smokeless tobacco: Never Used - Alcohol use No MEDICATIONS: Reviewed ALLERGIES No Known Allergies Review of Systems Review of Systems REVIEW OF SYSTEMS: CONSTITUTIONAL: No fevers, chills, nightsweats, unintended weight loss HEENT: Denies frequent or severe heaches, nasal congestion/sinus symptoms, problematic allergy problems. EYES: No diplopia or blurry vision. CARDIOVASCULAR: No chest pain, dyspnea, palpitations, orthopnea, PND, ankle edema. PULM: No dyspnea, unexplained cough. GI: No dysphagia/odynophagia, problematic reflux, constipation, diarrhea, changes in stool habits, hematochezia, melena. + epigastric pain : No new urinary complaints, including dysuria, gross hematuria or pyuria. NEURO: No new balance problems, peripheral weakness/paresthesias or numbness of concern. MUSC-SKEL: No new joint pain, swelling, or erythema. PSY: No concerns regarding depression, anxiety or panic. INTEGUMENTARY: No new skin changes (rash, new or changing mole, new growth) Objective Physical Exam Performed There were no vitals taken for this visit. Physical Exam Lines, Drains, and Airways No matching active lines, drains, or airways Reviewed lines, drains, airways. Will discuss with nurse and discontinue at discharge PHYSICAL EXAMINATION General: Alert and oriented, no distress, pleasant and cooperative. Heart: Regular, normal S1 and S2, no murmurs, rubs, or gallops Lungs: Clear to auscultation bilaterally Abdomen: mild epigastric tenderness. Extremities: Feet/ankles without edema, posterior tibial pulses full and symmetrical DATA: Diagnostic tests reviewed for today's visit: Most recent labs and imaging results. CBC, Coags, BMP, Mg, Phos Assessment/Plan Principal Problem: Acute pancreatitis POA: Yes Assessment AND Plan: Unclear etiology Symptoms started after lunch which is suspicious for gall stone etiology Non alcoholic Will do supportive care IVF, pain control, NPO GI consult Lipid panel, USG gall bladder, lipase in am Active Problems: Hypothyroidism POA: Yes Assessment AND Plan: Continue home medications GERD (gastroesophageal reflux disease) POA: Yes Assessment AND Plan: Continue PPI Aortic valve stenosis, mild POA: Yes Assessment AND Plan: Out pt mx Cirrhosis (HCC) POA: Yes Assessment AND Plan: Non alcoholic Dr. Hodges (hepatology) - seen last month for chronic liver disease, and cirrhosis. Patient has history of fatty liver disease, but no review his liver biopsy. he denied jaundice or any evidence of ascites. he had previous endoscopy colonoscopy last year here with Dr. Jones. Well compensated at this time On lasix/aldactone/Rifaximin Hold lasix, continue rest of the medications Watch for any signs of fluid overload, watch for complications Essential hypertension POA: Yes Assessment AND Plan: Continue BB, aldactone Mixed hyperlipidemia POA: Yes Assessment AND Plan: Continue statin Uncontrolled type 2 diabetes mellitus with stage 3 chronic kidney disease, with long-term current use of insulin (HCC) POA: Yes Assessment AND Plan: On insulin at home, last A1C is 6.0 0n 10/28/17 Hold home insulin, start SSI Q 6 hrs Morbid obesity (HCC) POA: Yes Assessment AND Plan: Out pt mx VTE Prophylaxis: Pneumatic Compression Device Disposition: Home Plan of care discussed with: Patient and RN SIGNATURE: Brian Han MD PATIENT NAME: Hang Meza DATE: December 20, 2017 TIME: 4:25 AM PAGER/CONTACT #: [phone] PROGRESS Observed: 12/20/2017 Status: COMPLETED Source: [place] 4:22 AM CLINIC OTHER CAMPUS REPOSITORY HNO ID: [id number] Author: Downtime Note Service: (none) Author Type: (none) Type: Progress Notes Filed: 12/20/2017 4:27 AM Note Text: Epic Scheduled Downtime: 12/19/2017 11:34:32 PM to 12/20/2017 4:17:42 AM BEDSIDE GLUCOSE Collected: 12/20/2017 Status: F Source: [place] 12:24 AM [facility] REPOSITORY TYPE CODE TESTS RESULT OUT OF REFERENCE UNITS RANGE LAB L501.080 70-110 mg/dL High BEDSIDE GLU 113 Result Comment: MANAGEMENT OF PATIENT CARE PER NURSING PROTOCOL Performed By: #### L501.080 #### [facility] Point of Care [address] [place] [address] EMERGENCY DEPARTMENT Observed: 12/20/2017 Status: F Source: [place] SUMMARY 12:12 AM [facility] REPOSITORY [facility] Medical Records Department [address] [place] [address] Emergency Department Summary 12/19/17 2145 MR#: [id number] Acct: [id number] Name: HANG MEZA Rep #: [id number] : 1940 77 From: [employer] DO PCP: Kayla Bernstein [employer] Status: REG ER - ER Visit Summary Date of Service: 12/19/17 Chief Complaint: Chest and epigastric pain History of Present Illness: The patient is a 77 M who presents with substernal chest pain and epigastric pain that has been getting worse over the past couple days. Patient states the pain is over the substernal and epigastric areas. Patient denies any radiation of the pain. Patient describes the pain is constant aching. Patient states nothing seems to make the pain better or worse. Family states that the patient has a history of anemia and his most recent hemoglobin was 7.1. Patient states his stools have been dark but he takes iron. Patient denies any shortness of breath. Patient denies any nausea or vomiting. Physical Examination: Vital signs are stable. Patient is afebrile. Patient is in no acute distress. Patient does have some pallor. Pupils are equal, round, reactive to light bilaterally. Extraocular muscles are intact. The cavity is somewhat pale and clear. Neck is supple. Trachea is midline. There is no JVD or lymphadenopathy. Heart was regular rate and rhythm. Lungs are clear and equal bilateral. Abdomen is soft. There is some epigastric tenderness. There is no rebound or guarding noted. Cranial nerves II through XII are intact. There are no focal motor or sensory deficits noted. The remaining physical exam is within normal limits. Test Results: EKG showed normal sinus rhythm with a rate of 77. There are no acute ST or T-wave changes. CBC shows a hemoglobin of 7.1 and hematocrit 22.6. Creatinine was elevated 2.18 which is chronic. BUN was also elevated at 48. Lipase was elevated at 4224. INR was elevated at 1.4. Emergency Department Course and Treatment: Case was discussed with the hospitalist. There is no gastroenterology coverage here at [facility] this weekend. He recommended transferring the patient to another facility. Patient and family requested to be transferred to [facility]. The case was discussed with the hospitalist from [facility]. Patient will be accepted there under the service of Dr. Han. Patient and family understood and were agreeable with the plan. All questions were answered. Disposition: Transferred to [facility] Impression: Acute pancreatitis, anemia This note was generated with [employer] software. It may contain incorrect words, spelling, and punctuation that were not noted in review of the chart prior to signing ED Disposition - Plan for ED Patient: Disposition: [facility] Hospital - Other Chief Complaint: Other, Pain/Inj Diagnosis: Acute pancreatitis, Anemia Referrals: Kayla Bernstein NP-C [Primary Care Provider] - What to do if you have Problems For any increased pain, shortness of breath, bleeding, nausea or vomiting, chest pain, or any unexpected problems, contact your Primary Care Provider. Call [facility] ([phone]) or report to the closest Emergency Room. Call 911 if necessary. 12/20/17 0012 <Electronically signed by Taqueria Charles DO> Date Taqueria Charles DO Cosigner Signature (If Indicated): Date CC: Kayla Bernstein HOSP Observed: 12/20/2017 Status: COMPLETED Source: [place] 12:00 AM CLINIC OTHER CAMPUS REPOSITORY Patient:Hang Meza MRN: <[id number]> Height:5' 9(1.753 m) Weight:285 lb (129.275 kg) Outpatient Medications as of 12/23/17: simvastatin (ZOCOR) 20 mg tablet sucralfate (CARAFATE) 1 gram tablet insulin lispro (HUMALOG KWIKPEN) 100 unit/mL pen ferrous sulfate 325 mg (65 mg iron) tablet glipiZIDE (GLUCOTROL) 5 mg tablet levothyroxine (SYNTHROID) 25 mcg tablet spironolactone (ALDACTONE) 50 mg tablet metoprolol tartrate, short acting, (LOPRESSOR) [address] (PROTONIX) 40 mg tablet PSYLLIUM HUSK (METAMUCIL ORAL) loratadine (CLARITIN) 10 mg tablet aspirin, enteric coated (ASPIRIN, ENTERIC COATED) 81 mg EC tablet desoximetasone (TOPICORT) 0.25 % cream insulin glargine (LANTUS) 100 unit/mL (3 mL) inpn lancets (FREESTYLE LANCETS) 28 gauge [facility] blood sugar diagnostic (FREESTYLE TEST) test strip Insulin [place], Disposable, (BD ULTRAFINE III MINI PEN) 31 gauge x 3/16 ndle furosemide (LASIX) 40 mg tablet Methylcellulose, Laxative, (FIBER THERAPY) 500 mg tab miconazole (LOTRIMIN AF, DESENEX) 2 % powder meclizine (ANTIVERT) 25 mg tab lactulose (ENULOSE) 10 gram/15 mL solution rifaximin (XIFAXAN) 550 mg tab Admission/Clinic Administered Medications as of 12/23/17: polyethylene glycol 3350 17 g packet (MIRALAX, GLYCOLAX) senna-docusate 8.6-50 mg 1 tablet (SENNA-S) rifAXIMin 550 mg tab(s) (XIFAXAN) metoprolol tartrate (short acting) 25 mg tab(s) (LOPRESSOR) spironolactone 50 mg tab(s) (ALDACTONE) levothyroxine 25 mcg tab(s) (SYNTHROID) 0.9% NaCl 3-5 mL ondansetron orally disintegrating 4 mg tab(s) (ZOFRAN ODT) ondansetron (PF) 4 mg injection (ZOFRAN) acetaminophen 650 mg tab(s) (TYLENOL) morphine 1-2 mg injection dextrose 40 % 15 g glucagon 1 mg injection (GLUCAGEN) dextrose 50% in water 25 mL syringe insulin lispro injection (rapid acting) (HumaLOG) sucralfate 1 g oral liquid (CARAFATE) pantoprazole DR 40 mg tab(s) (PROTONIX) Problem List: Hypothyroidism [E03.9] GERD (gastroesophageal reflux disease) [K21.9] Renal disorder [N28.9] BPH (benign prostatic hyperplasia) [N40.0] Thrombocytopenia (HCC) [D69.6] Aortic valve stenosis, mild [I35.0] Cirrhosis (HCC) [K74.60] Ulcerative esophagitis [K22.10] Dizziness [R42] Essential hypertension [I10] Mixed hyperlipidemia [E78.2] Uncontrolled type 2 diabetes mellitus with stage 3 chronic kidney disease, with long-term current use of insulin (HCC) [E11.22, E11.65, N18.3, Z79.4] Acquired hypothyroidism [E03.9] Anemia of chronic illness [D63.8] History of colonic polyps [Z86.010] Morbid obesity (HCC) [E66.01] Anemia, chronic renal failure, stage 3 (moderate) [N18.3, D63.1] Acute pancreatitis [K85.90] Obesity, Class III, BMI >= 40 E66.01 [E66.01] Anemia [D64.9] Allergies: No Known Allergies Date Verified:12/23/17 Lab Values Lab Value Units Date High Low POTA* 4.5 mmol/L 12/23/2017 5.1 3.7 BRADEN* 28.2 % 12/23/2017 51.0 39.0 Progress Notes (BRADEN [facility]): Wes Araya Psr 12/22/2017 3:08 PM Signed Patient's daughter, Addie is contacting the office to update on her father's condition and to cancel his treatment on 12/23/2017. Patient is currently admitted to [facility], and has been a patient there since: 12/20/2017 at 3:30 am. She wants the office to know that when he arrived his hemoglobin was 6.4 and he was given a transfusion. They are monitoring his hemoglobin regularly and may give him another transfusion depending on his levels. They will be doing and EGD on 12/23/2017 to possibly remove his bleeding polyps. Addie states she is concerned that this may cause bleeding somewhere else. They have checked his gallbladder and found no gallstones. They are checking to see if his medication could be causing the bleeding also. His prostrate swelling is also down and he is on a full liquid diet. He has not had a full meal since Friday morning. If yo uhave any questions, please contact her at: [phone]. Deion Pardo MD 12/22/2017 4:24 PM Signed OK. Notify us when he is discharged from the hospital. MD Opal Smith LPN 12/22/2017 5:02 PM Signed Addie notified and verbalized understanding. Opal Lobato LPN Progress Notes (): DOWNTIME NOTE 12/20/2017 4:27 AM Signed Epic Scheduled Downtime: 12/19/2017 11:34:32 PM to 12/20/2017 4:17:42 AM Brian Han MD 12/20/2017 5:18 AM Signed DEPARTMENT OF HOSPITAL MEDICINE HISTORY AND PHYSICAL EXAM SERVICE DATE: 12/20/2017 SERVICE TIME: 4:25 AM Primary Care Physician: Kayla Bernstein APRN.ENVELOPE STAMPING MACHINE OPERATOR NIGHT AND WEEKEND COVERAGE: Nights: Please contact pager [phone]. Subjective HPI 77 Y M with PMH of HTN, DM, hypothyroidism, GERD, Liver cirrhosis, who is transferred from [facility] for acute pancreatitis. Pt reports after his lunch yesterday he started to have nausea, epigastric pain so he was taken to the ED. His work up showed elevated lipase in 4000's, so transferred here for further management. He received IV fluids in the ED, pain is much better now, nausea resolved. non alcoholic. He still has his gall bladder, never had gall stones. Never had pancreatitis before. 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 PAST SURGICAL HISTORY Procedure Laterality Date - COLONOSCOP W/ OR W/O BRSH SPEC 06/02/2017 2 year repeat/hard IV stick - COLONOSCOPY 2013 - EGD 2013, 08/08 - EGD W/O OR W/BRUSH/WASH 06/02/2017 EGD - KIDNEY SURGERY HX - PAST SURGICAL HISTORY OF 2014 umbilical hernia repair - PAST SURGICAL HISTORY OF prostate biopsy FAMILY HISTORY Problem Relation Age of Onset - Heart Father MA - Prostate Cancer Father - Diabetes Mother - Breast Cancer Sister - Heart Brother - prescott [OTHER] Brother Social History Substance Use Topics - Smoking status: Former Smoker Years: 10.00 Types: Cigars Quit date: 11/07/2002 - Smokeless tobacco: Never Used - Alcohol use No MEDICATIONS: Reviewed ALLERGIES No Known Allergies Review of Systems Review of Systems REVIEW OF SYSTEMS: CONSTITUTIONAL: No fevers, chills, nightsweats, unintended weight loss HEENT: Denies frequent or severe heaches, nasal congestion/sinus symptoms, problematic allergy problems. EYES: No diplopia or blurry vision. CARDIOVASCULAR: No chest pain, dyspnea, palpitations, orthopnea, PND, ankle edema. PULM: No dyspnea, unexplained cough. GI: No dysphagia/odynophagia, problematic reflux, constipation, diarrhea, changes in stool habits, hematochezia, melena. + epigastric pain : No new urinary complaints, including dysuria, gross hematuria or pyuria. NEURO: No new balance problems, peripheral weakness/paresthesias or numbness of concern. MUSC-SKEL: No new joint pain, swelling, or erythema. PSY: No concerns regarding depression, anxiety or panic. INTEGUMENTARY: No new skin changes (rash, new or changing mole, new growth) Objective Physical Exam Performed There were no vitals taken for this visit. Physical Exam Lines, Drains, and Airways No matching active lines, drains, or airways Reviewed lines, drains, airways. Will discuss with nurse and discontinue at discharge PHYSICAL EXAMINATION General: Alert and oriented, no distress, pleasant and cooperative. Heart: Regular, normal S1 and S2, no murmurs, rubs, or gallops Lungs: Clear to auscultation bilaterally Abdomen: mild epigastric tenderness. Extremities: Feet/ankles without edema, posterior tibial pulses full and symmetrical DATA: Diagnostic tests reviewed for today's visit: Most recent labs and imaging results. CBC, Coags, BMP, Mg, Phos Assessment/Plan Principal Problem: Acute pancreatitis POA: Yes Assessment AND Plan: Unclear etiology Symptoms started after lunch which is suspicious for gall stone etiology Non alcoholic Will do supportive care IVF, pain control, NPO GI consult Lipid panel, USG gall bladder, lipase in am Active Problems: Hypothyroidism POA: Yes Assessment AND Plan: Continue home medications GERD (gastroesophageal reflux disease) POA: Yes Assessment AND Plan: Continue PPI Aortic valve stenosis, mild POA: Yes Assessment AND Plan: Out pt mx Cirrhosis (HCC) POA: Yes Assessment AND Plan: Non alcoholic Dr. Hodges (hepatology) - seen last month for chronic liver disease, and cirrhosis. Patient has history of fatty liver disease, but no review his liver biopsy. he denied jaundice or any evidence of ascites. he had previous endoscopy colonoscopy last year here with Dr. Jones. Well compensated at this time On lasix/aldactone/Rifaximin Hold lasix, continue rest of the medications Watch for any signs of fluid overload, watch for complications Essential hypertension POA: Yes Assessment AND Plan: Continue BB, aldactone Mixed hyperlipidemia POA: Yes Assessment AND Plan: Continue statin Uncontrolled type 2 diabetes mellitus with stage 3 chronic kidney disease, with long-term current use of insulin (HCC) POA: Yes Assessment AND Plan: On insulin at home, last A1C is 6.0 0n 10/28/17 Hold home insulin, start SSI Q 6 hrs Morbid obesity (HCC) POA: Yes Assessment AND Plan: Out pt mx VTE Prophylaxis: Pneumatic Compression Device Disposition: Home Plan of care discussed with: Patient and RN SIGNATURE: Brian Han MD PATIENT NAME: Hang Meza DATE: December 20, 2017 TIME: 4:25 AM PAGER/CONTACT #: [phone] Irene Rodrigues MD 12/20/2017 10:47 AM Signed GASTROENTEROLOGY CONSULT NOTE PATIENT NAME: Hang Meza SERVICE DATE: December 20, 2017 SERVICE TIME: 8:43 AM PRIMARY CARE PHYSICIAN: Kayla Bernstein APRN.ENVELOPE STAMPING MACHINE OPERATOR ATTENDING PHYSICIAN: Dr. Han REASON FOR ADMISSION/CONSULTATION: Acute pancreatitis HPI: This is a 77 year old male with a past medical history significant for HTN, DM, hypothyroidism, GERD, cirrhosis (follows with Dr. Jones and Dr. Cerrato), anemia of chronic disease (followed by policy loan calculator Dr. Pardo and recently started on Aranesp) and CKD Stage III who presented to [place] [facility] 12/19/17,with epigastric pain with nausea and vomiting after eating a sandwich (roast beef, turkey, ham and bologne). Associated nausea with nonbilious emesis(denied hematemesis or CGE) immediately after eating sandwich and generalized abdominal pain that radiated to his back. States pain was 10/10 and no previous pain in the past. Sons at bedside and report patient reported increased recent heartburn and has been using Tums. Reports compliance with Protonix 40 mg daily as well as Carafate QID. In the ER, he was found to have lipase > 4000. CXR with no acute abnormalities. No abdominal imaging obtained. He denies ETOH use or previous hx or pancreatitis. States started Carafate after recent EGD but otherwise no other medications. He was transferred to [facility] for further evaluation and GI consult has been requested for additional management. A RUQ US has just been completed. He reports pain is currently 5/10. Reported nausea but no further vomiting. He denies dysphagia or odynophagia. Normally reports BMs ~ TID without blood or mucous. No reports of hematochezia or melena. Home medication significant for ASA 81 mg daily, Lactulose 30 ml daily, Aldactone 50 mg daily, Rifaximin 550 mg po BID, metamucil daily, Lasix 40 mg every other day, He denies prior blood transfusion although it has been discussed recently. 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 Disp: 30 tablet Rfl: 3 12/19/2017 at Unknown time sucralfate (CARAFATE) 1 gram tablet Take 1 tablet by mouth four times daily. Disp: 120 tablet Rfl: 5 12/19/2017 at Unknown time ferrous sulfate 325 mg (65 mg iron) tablet Take 1 tablet by mouth daily with breakfast. Disp: 30 tablet Rfl: 5 12/19/2017 at Unknown time glipiZIDE (GLUCOTROL) 5 mg tablet Take 1 tablet by mouth daily before breakfast. Disp: 90 tablet Rfl: 3 12/19/2017 at Unknown time levothyroxine (SYNTHROID) 25 mcg tablet Take 1 tablet by mouth once daily. Disp: 30 tablet Rfl: 3 12/19/2017 at Unknown time spironolactone (ALDACTONE) 50 mg tablet Take 1 tablet by mouth once daily. Disp: Rfl: 12/19/2017 at Unknown time metoprolol tartrate, short acting, (LOPRESSOR) 25 mg tablet Take 1 tablet by mouth twice daily. Disp: 180 tablet Rfl: 3 12/19/2017 at Unknown time pantoprazole DR (PROTONIX) 40 mg tablet Take 1 tablet by mouth once daily. 30 minutes before eating. Disp: 30 tablet Rfl: 11 12/19/2017 at Unknown time aspirin, enteric coated (ASPIRIN, ENTERIC COATED) 81 mg EC tablet Take 81 mg by mouth once daily. as needed Disp: Rfl: 12/19/2017 at Unknown time lactulose (ENULOSE) 10 gram/15 mL solution Take 30 mL by mouth once daily. Disp: 1000 mL Rfl: 12/19/2017 at Unknown time rifaximin (XIFAXAN) 550 mg tab Take 1 tablet by mouth twice daily. Disp: 60 tablet Rfl: 11 12/19/2017 at Unknown time insulin lispro (HUMALOG KWIKPEN) 100 unit/mL pen 12 u with breakfast, 22 u with lunch, 15 u with dinner plus 2 u per 50 > 150 TDD 90 units Disp: 10 Pen Rfl: 11/23/2017 at 1700 PSYLLIUM HUSK (METAMUCIL ORAL) Take by mouth once daily. Disp: Rfl: 11/23/2017 at Unknown time loratadine (CLARITIN) 10 mg tablet Take 10 mg by mouth once daily. as needed Disp: Rfl: Unknown at Unknown time desoximetasone (TOPICORT) 0.25 % cream Apply thin layer twice daily Disp: 60 g Rfl: 1 11/23/2017 at 2100 insulin glargine (LANTUS) 100 unit/mL (3 mL) inpn Inject 25 Units subcutaneously twice daily. Disp: 45 mL Rfl: 3 11/23/2017 at 2100 lancets (FREESTYLE LANCETS) 28 gauge misc Test blood glucose 4 times daily Disp: 400 Each Rfl: 3 11/24/2017 at 0601 blood sugar diagnostic (FREESTYLE TEST) test strip Test blood glucose 4 times daily Disp: 400 Strip Rfl: 3 11/24/2017 at 0601 Insulin [place], Disposable, (BD ULTRAFINE III MINI PEN) 31 gauge x 11/07 ndle USE WITH INSULIN PENS 4 TIMES DAILY Disp: 400 Each Rfl: 3 11/23/2017 at 2100 furosemide (LASIX) 40 mg tablet Take 40 mg by mouth every other day. Disp: Rfl: 11/22/17 Methylcellulose, Laxative, (FIBER THERAPY) 500 mg tab Take 500 mg by mouth DAILY. Disp: Rfl: 11/23/2017 at Unknown time miconazole (LOTRIMIN AF, DESENEX) 2 % powder Apply 1 application to affected area twice daily. Disp: 50 g Rfl: 0 Unknown at Unknown time meclizine (ANTIVERT) 25 mg tab Take 1 tablet by mouth three times daily as needed. Disp: 20 tablet Rfl: 0 Unknown at Unknown time Current Hospital Medications: Current hospital medications: rifAXIMin 550 mg tab(s) (XIFAXAN) 550 mg ORAL BID aspirin, enteric coated 81 mg tab(s) (ASPIRIN, ENTERIC COATED) 81 mg ORAL DAILY pantoprazole DR 40 mg tab(s) (PROTONIX) 40 mg ORAL DAILY metoprolol tartrate (short acting) 25 mg tab(s) (LOPRESSOR) 25 mg ORAL BID spironolactone 50 mg tab(s) (ALDACTONE) 50 mg ORAL DAILY levothyroxine 25 mcg tab(s) (SYNTHROID) 25 mcg ORAL DAILY simvastatin 20 mg tab(s) (ZOCOR) 20 mg ORAL DAILY 0.9% NaCl 3-5 mL 3-5 mL INTRAVENOUS q 12 H NaCl 0.9% iv infusion 100 mL/hr INTRAVENOUS CONTINUOUS ondansetron orally disintegrating 4 mg tab(s) (ZOFRAN ODT) 4 mg ORAL q 6 H PRN ondansetron (PF) 4 mg injection (ZOFRAN) 4 mg INTRAVENOUS q 6 H PRN acetaminophen 650 mg tab(s) (TYLENOL) 650 mg ORAL q 6 H PRN morphine 1-2 mg injection 1-2 mg INTRAVENOUS q 4 H PRN dextrose 40 % 15 g 15 g ORAL PRN glucagon 1 mg injection (GLUCAGEN) 1 mg INTRAMUSCULAR PRN dextrose 50% in water 25 mL syringe 12.5 g INTRAVENOUS PRN insulin lispro injection (rapid acting) (HumaLOG) SUBCUTANEOUS q 6 H FAMILY HISTORY: No significant family history of GI related diseases or malignancies SOCIAL HISTORY: Marital status: Children: 5 Alcohol use: Denies recent use. Reports 1 beer per day but states quit at age 44 Tobacco use: Former cigar smoker- quit 2002 REVIEW OF SYSTEMS: CONSTITUTIONAL: No fevers, chills, night sweats, unintended weight loss HEENT: Denies frequent or severe headaches EYES: No diplopia or blurry vision CARDIOVASCULAR: No chest pain, dyspnea, palpitations, orthopnea, PND, ankle edema PULM: No dyspnea, unexplained cough GI: Per HPI : No new urinary complaints, including; dysuria, gross hematuria or pyuria NEURO: No dizziness, lightheadedness or vertigo MUSC/SKEL: No new joint pain, swelling, or erythema PSYCH: No concerns regarding depression, anxiety or panic INTEGUMENTARY: No new skin changes (rash, new or changing mole, new growth) PHYSICAL EXAM: Patient Vitals for the past 24 hrs: BP Temp Temp src Pulse Resp SpO2 Height Weight 12/20/17 0741 126/63 37.2 ?C (99 ?F) Oral 87 19 96 % - - 12/20/17 0600 - - - - - - 175.3 cm (5' 9) 129.3 kg (285 lb) Body mass index is 42.09 kg/m?. GENERAL: Alert AND oriented x 3. Cooperative. NAD EYES: No scleral icterus SKIN: Pale in color. No jaundice LUNGS: Clear to auscultation anteriorly CARDIAC: RRR with systolic murmur ABDOMEN: BS x 4. Abdomen obese, soft. Generalized tenderness but most pronounced to epigastrium. Mildly distended. No palpable masses or organomegaly. No guarding or rebound tenderness elicited EXTREMITIES: No upper or lower extremity edema LABS: Diagnostic tests reviewed for today's visit: CBC, Coags, BMP, Mg, Phos Recent Labs 12/20/17 0634 NA 136 K 4.8 CHLOR 99 CO2 25 BUN 45* CREAT 1.91* GLUC 132* CA 9.0 Component Latest Ref Rng AND Units 12/20/2017 WBC 3.70 - 11.00 k/uL 5.41 RBC 4.20 - 6.00 m/uL 1.88 (L) Hemoglobin 13.0 - 17.0 g/dL 6.4 (L) Hematocrit 39.0 - 51.0 % 21.6 (L) MCV 80.0 - 100.0 fL 114.9 (H) MCH 26.0 - 34.0 pG 34.0 MCHC 30.5 - 36.0 g/dL 29.6 (L) RDW-CV 11.5 - 15.0 % 16.5 (H) Platelet Count 150 - 400 k/uL 78 (L) MPV 9.0 - 12.7 fL 12.3 Liver Function, Amylase, AND Lipase Recent Labs 12/20/17 0634 LIPASE >600* 12/19/17 (At [facility]) Hgb 7.1 Hct 22.6 MCV 111.3 PLT 84 K 5.7 BUN 48 Cr 2.18 TB 0.7 AST 48 ALT 26 AP 46 Lipase 4224 (normal range 73-393) [facility] 08/24/[place] Liver, right lobe, biopsy - 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 Component Latest Ref Rng AND Units 05/17/2015 08/17/2015 09/21/2015 05/16/2016 11/23/2016 06/10/2017 10/10/2017 10/28/2017 10/30/2017 11/03/2017 11/04/2017 11/04/2017 11/25/2017 12/09/2017 10:30 AM 12:30 PM Hemoglobin 13.0 - 17.0 g/dL 10.2 (L) 10.3 (L) 10.7 (L) 10.6 7.6 (L) 7.9 6.8 (L) Hematocrit 39.0 - 51.0 % 32.0 (L) 32.9 (L) 34.7 (L) 32.4 (A) 25.6 (L) 25.6 (A) 23.8 (L) MCV 80.0 - 100.0 fL 102.9 (H) 94.3 91.1 100.0 107.6 (A) 117.8 (H) Platelet Count 150 - 400 k/uL 65 (L) 71 (L) 89 (L) 84 69 (L) Platelets Clumped, Estimate Low HGB 12 - 16 g/dL 9.3 (A) HCT 33 - 42 % 29.1 (A) Platelet 150 - 400 k/uL 66 (A) Occult Blood Source Stool Stool Stool Occult Blood Diagnostic Positive (A) Negative Negative Hep C Antibody IA Negative Negative Hemoglobin, Renita 13.0 - 17.0 g/dL 7.9 (L) 7.1 (L) Hematocrit, Renita 39.0 - 51.0 % 25.2 (L) 23.3 (L) Ref. Range 10/30/2017 15:36 Iron Latest Ref Range: 41 - 186 ug/dL 207 (H) Ferritin Latest Ref Range: 30.3 - 565.7 ng/mL 66.4 TIBC Latest Ref Range: 232 - 386 ug/dL 395 (H) Transferrin Saturation Latest Ref Range: 15 - 57 % 52 RADIOLOGY 01/12/2015 RUQ US IMPRESSION: HEPATIC STEATOSIS. ?NO SUSPICIOUS FOCAL LESION. ?NO BILIARY DILATATION 11/05/17 NM liver IMPRESSION: No evidence for splenomegaly. ?No focal hepatic abnormality. Colloid shift noted consistent with cirrhosis. 12/19/17 CXR (At [place]) No acute cardiopulmonary findings or changes. Negative for new consolidation, focal atelectasis, pleural effusions or cardiomegaly. MOST RECENT EGD: 11/24/17 (Derrick Jones MD). ANGIE secondary to chronic blood loss, cirrhosis and low platelet count ?Findings: The examined esophagus was normal. ? ? ?Previously seen and nonbleeding multiple gastric polyps from last year ? ? ?are now oozing blood in multiple places throughout the stomach. The ? ? ?polyps had previously been demonstrated to be a fundic gland polyps with ? ? ?no malignancy. A biopsy was taken. Blood loss was minimal ? ? ?The examined duodenum was normal. Impression: ?- Normal esophagus. ?- Normal examined duodenum. ?Bx: Stomach, polyp, biopsy - Predominantly granulation tissue and Fibrinopurulent exudate, compatible with gastric hyperplastic polyp. - No evidence of dysplasia or carcinoma. MOST RECENT COLONOSCOPY: 06/02/2017 (Derrick Jones MD). Hx colon polyps - Preparation of the colon was fair. - One 10 mm polyp in the descending colon, removed with a hot snare. Resected and retrieved. Bx: Colon, descending, polypectomy (B) - Colonic mucosa with thermal artifact, favor hyperplastic polyp. ASSESSMENT 1- Acute pancreatitis- DDx should include gallstone induced, hypertriglyceridemia, medication effect 2- Acute on chronic macrocytic anemia 3- Cirrhosis complicated by anemia, thrombocytopenia- suspect CARBAJAL 4- Hx colon polyps / gastric polyps oozing at time of last EGD 11/24/17 / GERD 5- DM PLAN - NPO - IVF: NS @ 150 ml/hr - Obtain RUQ US as ordered - Check triglycerides - Daily lipase, CBC, CMP, INR - Monitor for overt/occult blood loss - Transfuse 2 units of PRBC's - Stool log - Continue Rifaximin 550 mg po BID - Continue Protonix 40 mg but increase to BID - Resume Carafate 1 g po QID as per home regimen - Aldactone 50 mg po daily - Further recommendations pending clinical course and results of above Thank you for the opportunity to participate in the care of this patient. I will continue to follow with you. SIGNATURE: Irene Rodrigues MD DATE: December 20, 2017 TIME: 8:43 AM Previous Version Mary Alice Shoemaker, RN, RN 12/20/2017 8:21 PM Addendum Nursing Progress Note Patient Name: Hang Meza Patient Location: [place] [id number] Daily Note: 0836: Medicated for pain and nausea per orders. No respiratory distress. IV fluids running. 0930: Instructed to hold ASA at this time per Dina Coffman ENVELOPE STAMPING MACHINE OPERATOR. 1030: IV fluid rate increased per orders. ABD pain present, but tolerable. No respiratory distress. No needs. 1524: 1st unit PRBC started at this time. VSS. Educated on possible blood transfusion reactions. All questions answered. 1539: VSS remain stable. Patient asymptomatic. PRBC continues to infuse without difficulty. 1938: 2nd unit RBC started per orders. VSS. No respiratory distress. 1952: 2nd unit PRBC continues to infuse without difficulty. VSS. No needs. 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 Health Issues Impacting Discharge Plan: Newly diagnosed Acute Pancreatitis, HX Arotic Valve Stenosis, DM, Cirrhosis, Stroke, Gerd, Last Admission Date: none Is this Within the Past 30 days? No Advance Directive: Current Advance Directive: None [employer] Assisted with AD Completion: No Health Literacy: 1. How often do you need to have someone help you when you read instructions, pamphlets, or other written material from your doctor or pharmacy? Always - 5 2. How confident are you filling out medical forms by yourself? Not at all - 5 If Patient scores > 3 on either question, the following interventions were put into place: involve dtr Addie with all information/education. FUNCTIONAL AND COGNITIVE/BEHAVIORAL PRIOR TO ADMISSION: Baseline Mental Status: Alert AND Oriented, Person, Place and Time Functional Status: Dependent Does Patient Currently Receive Any Community Services or Home Care? [facility] waiver [facility] [phone] Equipment Prior to Admission: Cane - Quadrant Glucometer Incontinence supplies Rollator Scooter Walker Alert bracelet. Has the Patient Been in a Group Home Facility in the Past 30 days? N/A SOCIAL: Living Arrangement: Home Lives With: Daughter Addie Financial Resources: Retired Primary Contact: Extended Emergency Contact Information Primary Emergency Contact: Addie Meza Address: [address] [place], [place] [address] [place] [address] Relation: Daughter Supportive: Yes primary financial reporting advisor Other Important Patient Contacts: None Caregiver Assessment: Caregiver is ready, willing and able to meet the patient's needs as recommended by the inter-professional team? Yes Patient's transition needs and plan for meeting these needs: return home with dtr Addie Does the patient have an acute stroke diagnosis, or has the patient had a stroke during this admission? No Medication Adherence: I am convinced of the importance of my prescription medication: Agree completely - 0 I worry that my prescription medication will do more harm than good to me Disagree completely - 0 I feel financially burdened by my [id number] expenses for my prescription medication: Disagree completely - 0 Patient is categorized as low risk < 2 Are you interested in bedside delivery of your medications? Yes If immediate medication need. Otherwise they can be called into [facility] Food Concerns: In the Last Month, Have You had Trouble Getting Food? No trouble getting food During the Last Month, Have You Worried Whether Your Food Would Run Out Before You Had Enough Money to Buy More? No Is the Patient Psychosocially Complex? No ASSESSMENT AND PLAN: Medical Needs: 2 or more chronic diseases and Fall risk or frequent falls Psychosocial Needs: None FREEDOM OF CHOICE EXPLAINED: N/A POTENTIAL TRANSITION PLANS Home Waiver CM met with pt at bedside. Pt states he is from home with his daughter Addie. States they live in a house basement but they have ground access and he does not have to climb stairs. He ambulates with a Cane but also uses a rolator. He is getting a lift chair in 2 weeks. States his daughter is his primary financial reporting advisor. She assists with showers, cooking, cleaning, groceries and driving to medical appointments. Pt states he manages his own medications. Pt gives CM permission to speak to his daughter Kylie. CM spoke with pt's daughter Feng is active [facility] [employer] [facility] program. His daughter provides care 2 hours a day thru [facility], they have nurse Grisel available if they need nursing. [facility] Application Chemist is Rhonda Brito [phone]. Addie would like pt to return home with her, she will transport. Pt has an appointment scheduled with Aly Bernstein NP on February 02, 2018. SIGNATURE: Dayan Saavedra RN PATIENT NAME: Hang Meza DATE: December 20, 2017 TIME: 1:13 PM PAGER/CONTACT #: [phone] Maile Whittington MD 12/20/2017 3:36 PM Signed SHORT HOSPITALIST PROGRESS NOTE Name: Hang Meza SERVICE DATE: 12/20/2017 SERVICE TIME: 3:34 PM Hospital Medicine/Primary Attending: Maile Whittington MD NIGHT COVERAGE BETWEEN 5.30P-7.30A Page [phone] Patient seen and eval. Reviewed orders and HANDP from this AM. His Hb is 6.6, will be transfused 2 units. IVFat 150cc/hr. Cholesterol wnl. URQ US shows cirrhosis but no acute cholecystitis. On Protonix BID and Carafate. DATA: Diagnostic tests reviewed for today's visit: Most recent labs CBC: WBC 5.41 12/20/2017 Hemoglobin 6.4 12/20/2017 HCT 21.6 12/20/2017 Platelet 78 12/20/2017 CMP: Sodium 136 12/20/2017 Potassium 4.8 12/20/2017 BUN 45 12/20/2017 Creatinine 1.91 12/20/2017 Glucose 132 12/20/2017 Chloride 99 12/20/2017 CO2 25 12/20/2017 Plan of care discussed with: Patient SIGNATURE: Maile Whittington MD DATE: December 20, 2017 TIME: 3:34 PM Irene Rodrigues MD 12/21/2017 1:22 PM Signed GASTROENTEROLOGY CONSULT PROGRESS NOTE Patient Name: Hang Meza SERVICE DATE: December 21, 2017 SERVICE TIME: 11:17 AM ASSESSMENT 1- Acute pancreatitis- Possibly medication effect (simvastatin, lasix) 2- Acute on chronic macrocytic anemia - s/p 2 units prbc 3- Cirrhosis complicated by anemia, thrombocytopenia- suspect CARBAJAL 4- Hx colon polyps / gastric polyps oozing at time of last EGD 11/24/17 / GERD 5- DM ? PLAN - Daily lipase, CBC, CMP, INR - Monitor for overt/occult blood loss - Stool log - Continue Rifaximin 550 mg po BID - Continue Protonix 40 mg po BID / Carafate 1 g po QID as per home regimen - Aldactone 50 mg po daily - Further recommendations pending clinical course and results of above ? Patient seen and examined. Discussed with mid level provider. Nunez findings confirmed. Plan as outlined. Irene Rodrigues MD December 21, 2017 1:21 PM INTERVAL HPI: Reports abdominal pain is resolved. No BMs since admission. Hgb improved s/p 2 units prbc yesterday. Daughter/caregiver at bedside and reports Lasix dose recently increased from 40 mg to 80 mg within the past 2 months. PHYSICAL EXAM: Patient Vitals for the past 24 hrs: BP Temp Temp src Pulse Resp SpO2 12/21/17 0710 (!) 117/38 37.1 ?C (98.8 ?F) Oral 66 20 99 % 12/21/17 0311 113/57 36.8 ?C (98.2 ?F) Oral 70 20 98 % 12/20/17 1953 (!) 105/42 37.1 ?C (98.7 ?F) Oral 72 17 95 % 12/20/17 1911 (!) 113/36 36.9 ?C (98.4 ?F) Oral 75 18 95 % 12/20/17 1624 128/50 36.9 ?C (98.4 ?F) Oral 76 19 95 % 12/20/17 1539 126/54 37.1 ?C (98.7 ?F) Oral 75 17 94 % 12/20/17 1508 110/51 36.9 ?C (98.4 ?F) Oral 72 19 95 % GENERAL: Alert AND oriented x 3. Cooperative. NAD EYES: No scleral icterus SKIN: Pale in color. No jaundice LUNGS: Clear to auscultation anteriorly CARDIAC: RRR with systolic murmur ABDOMEN: BS x 4. Abdomen obese, soft. Mild tenderness to epigastrium. Mildly distended. No palpable masses or organomegaly. No guarding or rebound tenderness elicited EXTREMITIES: No upper or lower extremity edema ? LABS: CBC, Coags, BMP, Mg, Phos Recent Labs 12/21/17 0631 12/21/17 0114 12/20/17 0634 WBC 4.01 -- 5.41 HB 7.7* 7.9* 6.4* HCT 25.3* -- 21.6* PLT 72* -- 78* INR 1.2 -- -- NA 140 -- 136 K 5.1 -- 4.8 CHLOR 104 -- 99 CO2 25 -- 25 BUN 39* -- 45* CREAT 1.96* -- 1.91* GLUC 124* -- 132* CA 8.6 -- 9.0 Liver Function, Amylase, AND Lipase Recent Labs 12/21/17 0631 12/20/17 0634 TPROT 6.8 7.1 ALB 3.3* 3.4* ALT 15 16 AST 23 22 ALKPHOS 39 41 TBILI 1.6* 0.9 LIPASE 54 >600* MEDICATIONS: Current hospital medications: rifAXIMin 550 mg tab(s) (XIFAXAN) 550 mg ORAL BID aspirin, enteric coated 81 mg tab(s) (ASPIRIN, ENTERIC COATED) 81 mg ORAL DAILY metoprolol tartrate (short acting) 25 mg tab(s) (LOPRESSOR) 25 mg ORAL BID spironolactone 50 mg tab(s) (ALDACTONE) 50 mg ORAL DAILY levothyroxine 25 mcg tab(s) (SYNTHROID) 25 mcg ORAL DAILY simvastatin 20 mg tab(s) (ZOCOR) 20 mg ORAL DAILY 0.9% NaCl 3-5 mL 3-5 mL INTRAVENOUS q 12 H NaCl 0.9% iv infusion 150 mL/hr INTRAVENOUS CONTINUOUS ondansetron orally disintegrating 4 mg tab(s) (ZOFRAN ODT) 4 mg ORAL q 6 H PRN ondansetron (PF) 4 mg injection (ZOFRAN) 4 mg INTRAVENOUS q 6 H PRN acetaminophen 650 mg tab(s) (TYLENOL) 650 mg ORAL q 6 H PRN morphine 1-2 mg injection 1-2 mg INTRAVENOUS q 4 H PRN dextrose 40 % 15 g 15 g ORAL PRN glucagon 1 mg injection (GLUCAGEN) 1 mg INTRAMUSCULAR PRN dextrose 50% in water 25 mL syringe 12.5 g INTRAVENOUS PRN insulin lispro injection (rapid acting) (HumaLOG) SUBCUTANEOUS q 6 H sucralfate 1 g oral liquid (CARAFATE) 1 g ORAL q [address] 40 mg tab(s) (PROTONIX) 40 mg ORAL BID AC (0600/1600) [facility] 08/[facility]/2014 Liver, right lobe, biopsy - 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 ? Component Latest Ref Rng AND Units 05/17/2015 08/17/2015 09/21/2015 05/16/2016 11/23/2016 06/10/2017 10/10/2017 10/28/2017 10/30/2017 11/03/2017 11/04/2017 11/04/2017 11/25/2017 12/09/2017 ? 10:30 AM 12:30 PM ? ? Hemoglobin 13.0 - 17.0 g/dL 10.2 (L) 10.3 (L) 10.7 (L) 10.6 ? 7.6 (L) 7.9 6.8 (L) ? Hematocrit 39.0 - 51.0 % 32.0 (L) 32.9 (L) 34.7 (L) 32.4 (A) ? 25.6 (L) 25.6 (A) 23.8 (L) ? MCV 80.0 - 100.0 fL 102.9 (H) 94.3 91.1 ? ? 100.0 107.6 (A) 117.8 (H) ? Platelet Count 150 - 400 k/uL 65 (L) 71 (L) 89 (L) 84 ? 69 (L) ? Platelets Clumped, Estimate Low ? HGB 12 - 16 g/dL ? 9.3 (A) ? HCT 33 - 42 % ? 29.1 (A) ? Platelet 150 - 400 k/uL ? 66 (A) ? Occult Blood Source ? Stool Stool Stool ? ? Occult Blood Diagnostic ? Positive (A) Negative Negative ? ? Hep C Antibody IA Negative ? Negative ? Hemoglobin, [place] 13.0 - 17.0 g/dL ? 7.9 (L) 7.1 (L) Hematocrit, [place] 39.0 - 51.0 % ? 25.2 (L) 23.3 (L) ? ? ? Ref. Range 10/30/2017 15:36 Iron Latest Ref Range: 41 - 186 ug/dL 207 (H) Ferritin Latest Ref Range: 30.3 - 565.7 ng/mL 66.4 TIBC Latest Ref Range: 232 - 386 ug/dL 395 (H) Transferrin Saturation Latest Ref Range: 15 - 57 % 52 ?12/20/17 Triglyceride 76 RADIOLOGY 01/12/2015 RUQ US IMPRESSION: HEPATIC STEATOSIS. ?NO SUSPICIOUS FOCAL LESION. ?NO BILIARY DILATATION ? 11/05/17 NM liver IMPRESSION: No evidence for splenomegaly. ?No focal hepatic abnormality. Colloid shift noted consistent with cirrhosis. ? 12/19/17 CXR (At [place]) No acute cardiopulmonary findings or changes. Negative for new consolidation, focal atelectasis, pleural effusions or cardiomegaly. ? 12/20/17 RUQ US Pancreas: Normal sonographic appearance. ?? Portions obscured: tail Liver: ?? ? Echotexture: ?Normal, homogeneous. ?? ? Echogenicity: ?Increased ?? ? Surface contour: ?Nodular ?? ? Lesions: ?None. Biliary: No intrahepatic biliary duct dilation. ?? ? CBD: 0.4 cm at the hilum. ?? ? Gallbladder: ?Normal caliber ?-Contents: ?No cholelithiasis ?-Wall: ?Normal ?-Other: ?No pericholecystic fluid. Right Kidney: No hydronephrosis. ?12 mm lower pole cyst Ascites: None. Spleen: Mild splenomegaly measuring 14.1 x 5.9 x 13.3 cm. ?Calcified granulomas. ?No lesion. Incidental note is made of left renal cysts, the largest in the lower pole measuring 3.5 cm. ?No left hydronephrosis. IMPRESSION: CIRRHOTIC LIVER MORPHOLOGY. ?NO HEPATIC LESION. ? HEPATIC STEATOSIS Mild splenomegaly Bilateral renal cysts MOST RECENT EGD: 11/24/17 (Derrick Jones MD). ANGIE secondary to chronic blood loss, cirrhosis and low platelet count ?Findings: The examined esophagus was normal. ? ? ?Previously seen and nonbleeding multiple gastric polyps from last year ? ? ?are now oozing blood in multiple places throughout the stomach. The ? ? ?polyps had previously been demonstrated to be a fundic gland polyps with ? ? ?no malignancy. A biopsy was taken. Blood loss was minimal ? ? ?The examined duodenum was normal. Impression: ?- Normal esophagus. ?- Normal examined duodenum. ?Bx: Stomach, polyp, biopsy - Predominantly granulation tissue and Fibrinopurulent exudate, compatible with gastric hyperplastic polyp. - No evidence of dysplasia or carcinoma. ? MOST RECENT COLONOSCOPY: 06/02/2017 (Derrick Jones MD). Hx colon polyps - Preparation of the colon was fair. - One 10 mm polyp in the descending colon, removed with a hot snare. Resected and retrieved. Bx: Colon, descending, polypectomy (B) - Colonic mucosa with thermal artifact, favor hyperplastic polyp. ? SIGNATURE: Dina Coffman APRN.ENVELOPE STAMPING MACHINE OPERATOR DATE: December 21, 2017 TIME: 11:17 AM Previous Version Maile Whittington MD 12/21/2017 3:28 PM Signed HOSPITAL MEDICINE PROGRESS NOTE Name: Hang Meza SERVICE DATE: 12/21/2017 SERVICE TIME: 3:18 PM LOCATION / ROOM: [place] [id number] Hospital Medicine/Primary Attending: Maile Whittington MD NIGHT COVERAGE BETWEEN 5.30P-7.30A Page [phone] ASSESSMENT AND PLAN Active Hospital Problems Diagnosis - Acute pancreatitis - Obesity, Class III, BMI >= 40 E66.01 - Anemia - Morbid obesity (HCC) - Essential hypertension - Mixed hyperlipidemia - 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 Symptoms started after lunch which is suspicious for gall stone etiology Non alcoholic Will do supportive care IVF will be decreased from 150 to 75cc/hr , pain control, NPO GI consult Lipid , USG gall bladder, and repeat lipase are now all normal Hypothyroidism Continue home medications ? Acute microcytic anemia -worked up as outpt and no etiology for his anemia -Hb 6.6 and s/p 2u of pRBCs, Hb improved to 7.7 colonoscopy 2 years ago and unremarkable. Follow up with out pt heme GERD Continue PPI ? Aortic valve stenosis, mild Out pt mx ? Cirrhosis/ CARBAJAL possible Non alcoholic Dr. Hodges (hepatology) - seen last month for chronic liver disease, and cirrhosis. Patient has history of fatty liver disease, but no review his liver biopsy. he denied jaundice or any evidence of ascites. he had previous endoscopy colonoscopy last year here with Dr. Jones. Well compensated at this time On lasix /aldactone/Rifaximin Hold lasix, continue rest of the medications Watch for any signs of fluid overload, watch for complications ? Essential hypertension Continue BB, aldactone. Lasix held ? Mixed hyperlipidemia Held statin, could of caused the pancreatitis. ? Uncontrolled type 2 diabetes mellitus with stage 3 chronic kidney disease, with long-term current use of insulin On insulin at home, last A1C is 6.0 0n 10/28/17 Hold home insulin, start SSI Q 6 hrs Sugars at goal ? Morbid obesity Out pt mx SUBJECTIVE INTERVAL HPI: Feels better, no fever, chills, cp nor palpitations. abd pain is much improved. He has no new problems and denies any fevers, chills, sob, chest pain, abd pain, n/v/d at this time. No events overnight MEDICATIONS: Reviewed Current Facility-Administered Medications: rifAXIMin 550 mg tab(s) (XIFAXAN) 550 mg ORAL BID Brian Guille 550 mg at 12/21/17 0851 aspirin, enteric coated 81 mg tab(s) (ASPIRIN, ENTERIC COATED) 81 mg ORAL DAILY Brian Guille metoprolol tartrate (short acting) 25 mg tab(s) (LOPRESSOR) 25 mg ORAL BID Brian Guille 25 mg at 12/21/17 0851 spironolactone 50 mg tab(s) (ALDACTONE) 50 mg ORAL DAILY Brian Guille 50 mg at 12/21/17 0850 levothyroxine 25 mcg tab(s) (SYNTHROID) 25 mcg ORAL DAILY Brian Guille 25 mcg at 12/21/17 0850 simvastatin 20 mg tab(s) (ZOCOR) 20 mg ORAL DAILY Brian Guille 20 mg at 12/21/17 0851 0.9% NaCl 3-5 mL 3-5 mL INTRAVENOUS q 12 H Brian Guille 5 mL at 12/20/17 0617 NaCl 0.9% iv infusion 150 mL/hr INTRAVENOUS CONTINUOUS Maile Whittington Last Rate: 150 mL/hr at 12/21/17 1153 150 mL/hr at 12/21/17 1153 ondansetron orally disintegrating 4 mg tab(s) (ZOFRAN ODT) 4 mg ORAL q 6 H PRN Brian Guille Or ondansetron (PF) 4 mg injection (ZOFRAN) 4 mg INTRAVENOUS q 6 H PRN Brian Guille 4 mg at 12/20/17 0836 acetaminophen 650 mg tab(s) (TYLENOL) 650 mg ORAL q 6 H PRN Brian Guille morphine 1-2 mg injection 1-2 mg INTRAVENOUS q 4 H PRN Brian Guille 1 mg at 12/20/17 0836 dextrose 40 % 15 g 15 g ORAL PRN Brian Guille Or glucagon 1 mg injection (GLUCAGEN) 1 mg INTRAMUSCULAR PRN Brian Guille Or dextrose 50% in water 25 mL syringe 12.5 g INTRAVENOUS PRN Brian Guille insulin lispro injection (rapid acting) (HumaLOG) SUBCUTANEOUS q 6 H Brian Guille sucralfate 1 g oral liquid (CARAFATE) 1 g ORAL q 6 H Dina M Coffman 1 g at 12/21/[address] 40 mg tab(s) (PROTONIX) 40 mg ORAL BID AC (0600/1600) Dina M Coffman 40 mg at 12/21/17 0524 OBJECTIVE PHYSICAL EXAM: BP 117/38 Pulse 66 Temp (Src) 98.8 (Oral) Resp 20 Ht 5' 9 (1.75m) Wt 285 lb (129.3kg) SpO2 99% BMI 42.07 kg/(m2). GENERAL: Alert, no distress, cooperative SKIN: Skin color, texture, turgor normal. No rashes or lesions. EYES: PERRLA, EOMI OROPHARYNX: Lips, mucosa, and tongue normal. Teeth and gums normal. Oropharynx normal. NECK: No jugulovenous distention, No carotid bruits, Carotid pulse normal contour, Supple LUNGS: Lungs clear to auscultation, Good diaphragmatic excursion CARDIAC: Normal S1 and S2; no rubs, murmurs, or gallops ABDOMEN: Abdomen soft, mild tender, BS normal, No masses or organomegaly EXTREMITIES: Extremities normal, no deformities, edema, clubbing or skin discoloration. Good capillary refill., No ulcers NEURO: Reflexes normal and symmetric. Sensation grossly intact PULSES: 2+ radial, 2+ carotid DATA: Diagnostic tests reviewed for today's visit: Most recent labs CBC: WBC 4.01 12/21/2017 Hemoglobin 7.7 12/21/2017 HCT 25.3 12/21/2017 Platelet 72 12/21/2017 CMP: Sodium 140 12/21/2017 Potassium 5.1 12/21/2017 BUN 39 12/21/2017 Creatinine 1.96 12/21/2017 Glucose 124 12/21/2017 Chloride 104 12/21/2017 CO2 25 12/21/2017 VTE Prophylaxis: Pneumatic Compression Device Disposition: Home Plan of care discussed with: Patient SIGNATURE: Maile Whittington MD DATE: December 21, 2017 TIME: 3:18 PM Irene Rodrigues MD 12/22/2017 1:36 PM Signed GASTROENTEROLOGY CONSULT PROGRESS NOTE Patient Name: Hang Meza SERVICE DATE: December 22, 2017 SERVICE TIME: 11:35 AM ASSESSMENT 1- Acute pancreatitis- possibly medication effect (simvastatin, lasix) 2- Acute on chronic macrocytic anemia - s/p 2 units prbc 3- Cirrhosis complicated by anemia, thrombocytopenia- suspect CARBAJAL 4- Hx colon polyps / gastric polyps oozing at time of last EGD 11/24/17?/ GERD 5- DM ? PLAN - Advance to full liquid diet - Daily lipase, CBC, CMP, INR - Follow up B12 and folate levels - Monitor for overt/occult blood loss - Stool log - Stool for OB - Continue Rifaximin 550 mg po BID - Continue Protonix 40 mg po BID / Carafate 1 g po QID as per home regimen - Aldactone 50 mg po daily - Outpatient SBCE further evaluate anemia ? - Consider repeat EGD to investigate recurrent anemia w/ hx of gastric polyps Patient seen and examined. Discussed with mid level provider. Nunez findings confirmed. Plan as outlined. Feels ok. States had recurrence of abd pain but not as severe. Tolerating diet. No melena. Hungry and wants diet advanced. Discussed with patient and daughter at bedside that H/H is declining. I again reviewed EGD findings from earlier this month showing oozing from multiple gastric polyps. Discussed EGD again to evaluate; they discussed with other daughter and they agreed to proceed. Risks, benefits and alternatives were discussed. Irene Rodrigues MD December 22, 2017 1:10 PM INTERVAL HPI: Patient and daughter present at the bedside. Patient states he was feeling well this am but as the day has gone by he is noticing more and more abdominal pain similar to admission complaints. He is without complaints of nausea or vomiting. No indigestion. Last BM was on Friday and reports minimal flatus since admission. Patient received 2 units of packed red blood cells with minimal improvement in hgb (6.4--7.9). Today Hgb 7.2. PHYSICAL EXAM: Patient Vitals for the past 24 hrs: BP Temp Temp src Pulse Resp SpO2 12/22/17 0708 116/62 36.9 ?C (98.4 ?F) Oral 72 20 96 % 12/21/17 2323 (!) 99/38 36.3 ?C (97.3 ?F) Oral 64 20 96 % 12/21/17 1603 107/52 - - 69 - - 12/21/17 1525 (!) 114/38 37 ?C (98.6 ?F) Oral 69 19 96 % GENERAL: Alert AND oriented x 3. Cooperative. NAD. Flat affect. EYES: No scleral icterus SKIN: Pale in color. No jaundice LUNGS: Clear to auscultation anteriorly CARDIAC: RRR with systolic murmur ABDOMEN: BS x 4. Abdomen obese, soft. ?Mild tenderness to epigastrium and right upper quadrant. Mildly distended. ?No palpable masses or organomegaly. No guarding or rebound tenderness elicited EXTREMITIES: Mild edema to upper and lower extremities. SCD's inplace MEDICATIONS: Current hospital medications: rifAXIMin 550 mg tab(s) (XIFAXAN) 550 mg ORAL BID metoprolol tartrate (short acting) 25 mg tab(s) (LOPRESSOR) 25 mg ORAL BID spironolactone 50 mg tab(s) (ALDACTONE) 50 mg ORAL DAILY levothyroxine 25 mcg tab(s) (SYNTHROID) 25 mcg ORAL DAILY 0.9% NaCl 3-5 mL 3-5 mL INTRAVENOUS q 12 H ondansetron orally disintegrating 4 mg tab(s) (ZOFRAN ODT) 4 mg ORAL q 6 H PRN ondansetron (PF) 4 mg injection (ZOFRAN) 4 mg INTRAVENOUS q 6 H PRN acetaminophen 650 mg tab(s) (TYLENOL) 650 mg ORAL q 6 H PRN morphine 1-2 mg injection 1-2 mg INTRAVENOUS q 4 H PRN dextrose 40 % 15 g 15 g ORAL PRN glucagon 1 mg injection (GLUCAGEN) 1 mg INTRAMUSCULAR PRN dextrose 50% in water 25 mL syringe 12.5 g INTRAVENOUS PRN insulin lispro injection (rapid acting) (HumaLOG) SUBCUTANEOUS q 6 H sucralfate 1 g oral liquid (CARAFATE) 1 g ORAL q [address] 40 mg tab(s) (PROTONIX) 40 mg ORAL BID AC (0600/1600) LABS: CBC, Coags, BMP, Mg, Phos Recent Labs 12/22/1751712/21/17 0631 12/21/17 0114 12/20/17 0634 WBC 3.72 4.01 -- 5.41 HB 7.2* 7.7* 7.9* 6.4* HCT 23.8* 25.3* -- 21.6* PLT 64* 72* -- 78* INR 1.2 1.2 -- -- NA 139 140 -- 136 K 4.8 5.1 -- 4.8 CHLOR 105 104 -- 99 CO2 24 25 -- 25 BUN 31* 39* -- 45* CREAT 1.91* 1.96* -- 1.91* GLUC 98 124* -- 132* CA 8.2* 8.6 -- 9.0 Liver Function, Amylase, AND Lipase Recent Labs 12/22/1751712/21/17 0631 12/20/17 0634 TPROT 6.4 6.8 7.1 ALB 3.0* 3.3* 3.4* ALT 15 15 16 AST 26 23 22 ALKPHOS 38 39 41 TBILI 1.1 1.6* 0.9 LIPASE 35 54 >600* ? 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 10/30/2017 Hepatitis C (-)? ? 10/30/2017 Iron 207 (H) Ferritin 66.4 TIBC 395 (H) Transferrin Saturation 52 ?12/20/17 Triglyceride 76 ? RADIOLOGY? 01/12/2015 RUQ US IMPRESSION: HEPATIC STEATOSIS. ?NO SUSPICIOUS FOCAL LESION. ?NO BILIARY DILATATION ? 11/05/17 NM liver IMPRESSION: No evidence for splenomegaly. ?No focal hepatic abnormality. Colloid ?shift noted consistent with cirrhosis. ? 12/19/17 CXR (At [place]) No acute cardiopulmonary findings or changes. ?Negative for new consolidation, focal atelectasis, pleural effusions or cardiomegaly. 12/20/17 RUQ US Pancreas: Normal sonographic appearance. Portions obscured: tail Liver: Echotexture: ?Normal, homogeneous. Echogenicity: ?Increased. Surface contour: ?Nodular. Lesions: ?None. Biliary: No intrahepatic biliary duct dilation. CBD: 0.4 cm at the hilum. Gallbladder: ?Normal caliber. Contents: ?No cholelithiasis. Wall: ?Normal. Other: ?No pericholecystic fluid. Right Kidney: No hydronephrosis. ?12 mm lower pole cyst Ascites: None. Spleen: Mild splenomegaly measuring 14.1 x 5.9 x 13.3 cm. ?Calcified granulomas. No lesion. Incidental note is made of left renal cysts, the largest in the lower pole measuring 3.5 cm. ?No left hydronephrosis. IMPRESSION: Cirrhotic liver morphology. No hepatic lesion. Hepatic steatosis. Mild splenomegaly. Bilateral renal cysts MOST RECENT EGD: 11/24/17 (Derrick Jones MD). ?ANGIE secondary to chronic blood loss, cirrhosis and low platelet count ?Findings: The examined esophagus was normal. Previously seen and nonbleeding multiple gastric polyps from last year are now oozing blood in multiple places throughout the stomach. The ?polyps had previously been demonstrated to be a fundic gland polyps with no malignancy. A biopsy was taken. Blood loss was minimal. The examined duodenum was normal. Impression: ?- Normal esophagus. ?- Normal examined duodenum. ?Bx: Stomach, polyp, biopsy - Predominantly granulation tissue and fibrinopurulent exudate, compatible with gastric hyperplastic polyp. - No evidence of dysplasia or carcinoma. ? MOST RECENT COLONOSCOPY: 06/02/2017 (Derrick Jones MD). ?Hx colon polyps -?Preparation of the colon was fair. - One 10 mm polyp in the descending colon, removed with a hot snare. Resected and retrieved. Bx: Colon, descending, polypectomy (B) - Colonic mucosa with thermal artifact, favor hyperplastic polyp. SIGNATURE: Fabiana Saleem APRN.ENVELOPE STAMPING MACHINE OPERATOR DATE: December 22, 2017 TIME: 11:35 AM Previous Version Beata Barbour MD 12/22/2017 2:02 PM Addendum DEPARTMENT OF HOSPITAL MEDICINE PROGRESS NOTE SERVICE DATE: 12/22/2017 SERVICE TIME: 1:48 PM Hospital Medicine/Primary Attending: Beata Barbour MD NIGHT AND WEEKEND COVERAGE: Nights: Please contact pager [phone]. Subjective INTERVAL HPI: patient seen and examined, had some epigastric pain this morning, wants to eat MEDICATIONS: Reviewed Objective PHYSICAL EXAM: BP 116/62 Pulse 72 Temp (Src) 98.4 (Oral) Resp 20 Ht 5' 9 (1.75m) Wt 285 lb (129.3kg) SpO2 96% BMI 42.07 kg/(m2). Physical Exam Performed GENERAL: Alert, no distress, cooperative SKIN: Skin color, texture, turgor normal. No rashes or lesions. LUNGS: Lungs clear to auscultation, Good diaphragmatic excursion CARDIAC: Normal S1 and S2; no rubs, murmurs, or gallops ABDOMEN: soft, distended EXTREMITIES: Extremities normal, no deformities, edema, clubbing or skin discoloration. Lines, Drains, and Airways Line Peripheral 12/21/17 1800 Short Left Forearm 22 Gauge less than 1 day DATA: Diagnostic tests reviewed for today's visit: Most recent labs and imaging results. Assessment/Plan Principal Problem: Acute pancreatitis Unclear etiology Abdominal pain improving Advance to full liquid diet Pain control Lipids reviewed, within normal range Possible drug induced Acute macrocytic anemia Check stool for occult blood Had recent EGD with oozing blood from gastric polyps. ? UGIB, GI to re-scope Continue ppi and sucralfate for now Check b12/folic acid s/p 2U PRBC, will monitor hb closely May need another transfusion if hb <7 Will have active t+s on file Constipation Bowel regimen Type 2 DM Continue Insulin and FS per algorithm Sugars well controlled during admission Last a1c = 6% Liver cirrhosis Currently compensated On aldactone and rifaximin Thrombocytopenia 2/2 above CKD III Around baseline Monitor closely Medication and Non-Pharmacologic VTE Prophylaxis/Anticoagulants 12/21/17 1530 intermittent pneumatic compression 12/20/17 0445 pneumatic compression stockings (fl,oh) VTE Prophylaxis: Contraindicated high bleeding risk Disposition: Home Plan of care discussed with: Patient SIGNATURE: Beata Barbour MD PATIENT NAME: Hang Meza DATE: December 22, 2017 TIME: 1:48 PM PAGER/CONTACT #: [id number] etx [phone] Previous Version Verona Nieves MD 12/23/2017 10:04 AM Signed ANESTHESIOLOGY DAY OF SURGERY NOTE SERVICE DATE: 12/23/2017 SERVICE TIME: 10:02 AM : 1940 Procedure(s) (LRB): EGD (N/A) Surgeon(s): Irene Rodrigues Estimated body mass index is 42.09 kg/m? as calculated from the following: Height as of this encounter: 175.3 cm (5' 9). Weight as of this encounter: 129.3 kg (285 lb). Most recent hematocrit and potassium results: HCT 28.2 12/23/2017 Potassium 4.5 12/23/2017 ANES DOS/PREOP NOTE: Vitals: 12/22/17 1924 12/22/17 2344 12/23/17 0728 12/23/17 0817 BP: (!) 105/45 (!) 106/42 124/55 Pulse: 66 64 (!) 51 66 Resp: Temp: 37.1 ?C (98.8 ?F) 36.7 ?C (98.1 ?F) 36.6 ?C (97.9 ?F) TempSrc: Oral Oral Oral SpO2: 95% 92% Weight: Height: ACTIVE PROBLEM LIST Hypothyroidism Gerd (Gastroesophageal Reflux Disease) Renal Disorder Bph (Benign Prostatic Hyperplasia) Thrombocytopenia (Hcc) Aortic Valve Stenosis, Mild Cirrhosis (Hcc) Ulcerative Esophagitis Dizziness Essential Hypertension Mixed Hyperlipidemia Uncontrolled 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 Chronic Kidney Disease, With Long-Term Current Use of Insulin (Hcc) Acquired Hypothyroidism Anemia of Chronic Illness History of Colonic Polyps Morbid Obesity (Hcc) Anemia, Chronic Renal Failure, Stage 3 (Moderate) Acute Pancreatitis Obesity, Class III, BMI >= 40 E66.01 Anemia 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 PAST SURGICAL HISTORY Procedure Laterality Date - COLONOSCOP W/ OR W/O BRSH SPEC 06/02/2017 2 year repeat/hard IV stick - COLONOSCOPY 2013 - EGD 2013, 08/08 - EGD W/O OR W/BRUSH/WASH 06/02/2017 EGD - KIDNEY SURGERY HX - PAST SURGICAL HISTORY OF 2013 umbilical hernia repair - PAST SURGICAL HISTORY OF prostate biopsy FAMILY HISTORY Problem Relation Age of Onset - Heart Father MA - Prostate Cancer Father - Diabetes Mother - Breast Cancer Sister - Heart Brother - prescott [OTHER] Brother Social History: Social History Substance Use Topics - Smoking status: Former Smoker Years: 10.00 Types: Cigars Quit date: 11/07/2002 - Smokeless tobacco: Never Used - Alcohol use No No current facility-administered medications on file prior to encounter. Current Outpatient Prescriptions on File Prior to Encounter: simvastatin (ZOCOR) 20 mg tablet Take 1 tablet by mouth once daily. sucralfate (CARAFATE) 1 gram tablet Take 1 tablet by mouth four times daily. ferrous sulfate 325 mg (65 mg iron) tablet Take 1 tablet by mouth daily with breakfast. glipiZIDE (GLUCOTROL) 5 mg tablet Take 1 tablet by mouth daily before breakfast. levothyroxine (SYNTHROID) 25 mcg tablet Take 1 tablet by mouth once daily. spironolactone (ALDACTONE) 50 mg tablet Take 1 tablet by mouth once daily. metoprolol tartrate, short acting, (LOPRESSOR) 25 mg tablet Take 1 tablet by mouth twice daily. pantoprazole DR (PROTONIX) 40 mg tablet Take 1 tablet by mouth once daily. 30 minutes before eating. aspirin, enteric coated (ASPIRIN, ENTERIC COATED) 81 mg EC tablet Take 81 mg by mouth once daily. as needed lactulose (ENULOSE) 10 gram/15 mL solution Take 30 mL by mouth once daily. rifaximin (XIFAXAN) 550 mg tab Take 1 tablet by mouth twice daily. insulin lispro (HUMALOG KWIKPEN) 100 unit/mL pen 12 u with breakfast, 22 u with lunch, 15 u with dinner plus 2 u per 50 > 150 TDD 90 units PSYLLIUM HUSK (METAMUCIL ORAL) Take by mouth once daily. loratadine (CLARITIN) 10 mg tablet Take 10 mg by mouth once daily. as needed desoximetasone (TOPICORT) 0.25 % cream Apply thin layer twice daily insulin glargine (LANTUS) 100 unit/mL (3 mL) inpn Inject 25 Units subcutaneously twice daily. lancets (FREESTYLE LANCETS) 28 gauge misc Test blood glucose 4 times daily blood sugar diagnostic (FREESTYLE TEST) test strip Test blood glucose 4 times daily Insulin [place], Disposable, (BD ULTRAFINE III MINI PEN) 31 gauge x 3/16 ndle USE WITH INSULIN PENS 4 TIMES DAILY furosemide (LASIX) 40 mg tablet Take 40 mg by mouth every other day. Methylcellulose, Laxative, (FIBER THERAPY) 500 mg tab Take 500 mg by mouth DAILY. miconazole (LOTRIMIN AF, DESENEX) 2 % powder Apply 1 application to affected area twice daily. meclizine (ANTIVERT) 25 mg tab Take 1 tablet by mouth three times daily as needed. Current Facility-Administered Medications: polyethylene glycol 3350 17 g packet (MIRALAX, GLYCOLAX) 17 g ORAL DAILY Beata Barbour) 17 g at 12/22/17 1424 senna-docusate 8.6-50 mg 1 tablet (SENNA-S) 1 tablet ORAL BID Beata Barbour) 1 tablet at 12/22/172041 NaCl 0.9% iv infusion 100 mL/hr INTRAVENOUS (PACU) CONTINUOUS Fabiana Saleem rifAXIMin 550 mg tab(s) (XIFAXAN) 550 mg ORAL BID Guille, Brian 550 mg at 12/22/17 204 metoprolol tartrate (short acting) 25 mg tab(s) (LOPRESSOR) 25 mg ORAL BID Giulle, Brian 25 mg at 12/23/17 0817 spironolactone 50 mg tab(s) (ALDACTONE) 50 mg ORAL DAILY Guille, Brian 50 mg at 12/22/17 0921 levothyroxine 25 mcg tab(s) (SYNTHROID) 25 mcg ORAL DAILY Guille, Brian 25 mcg at 12/22/17 0920 0.9% NaCl 3-5 mL 3-5 mL INTRAVENOUS q 12 H Guille, Brian 5 mL at 12/23/17 0817 ondansetron orally disintegrating 4 mg tab(s) (ZOFRAN ODT) 4 mg ORAL q 6 H PRN Guille, Brian Or ondansetron (PF) 4 mg injection (ZOFRAN) 4 mg INTRAVENOUS q 6 H PRN Guille, Brian 4 mg at 12/20/17 0836 acetaminophen 650 mg tab(s) (TYLENOL) 650 mg ORAL q 6 H PRN Guille, Brian morphine 1-2 mg injection 1-2 mg INTRAVENOUS q 4 H PRN Guille, Brian 1 mg at 12/20/17 0836 dextrose 40 % 15 g 15 g ORAL PRN Guille, Brian Or glucagon 1 mg injection (GLUCAGEN) 1 mg INTRAMUSCULAR PRN Guille, Brian Or dextrose 50% in water 25 mL syringe 12.5 g INTRAVENOUS PRN Guille, Brian insulin lispro injection (rapid acting) (HumaLOG) SUBCUTANEOUS q 6 H Guille, Brian 2 Units at 12/22/17 1822 sucralfate 1 g oral liquid (CARAFATE) 1 g ORAL q 6 H Coffman, Dina M 1 g at 12/22/[address] 40 mg tab(s) (PROTONIX) 40 mg ORAL BID AC (0600/1600) Coffman, Dina M 40 mg at 12/22/17 1509 Allergies: ALLERGIES No Known Allergies DOS EXAM: Adequate NPO Status: Yes Anesthetic Risks, Benefits, Alternatives, Personnel and Consent Discussed: Yes Patient agrees to proceed: Yes Previous Anesthesia: No history of adverse event Airway Assessment: MP 3; Neck ROM: Limited Flexion and Extension; Airway Evaluation: Short Neck and Thick neck Symptoms of Sleep Apnea: Hypertension, BMI > 35, Age over 50 (77 year old) and Male gender Dentition: Poor dentition Multiple missing teeth Broken tooth upper right Additional Physical Exam: Lungs: Patient health status unchanged since recent history and physical. See history and physical for exam findings. Cardiac: Patient health status unchanged since recent history and physical. See history and physical for exam findings. Additional Pertinent Findings: N/A Blood Products: Not anticipated for this procedure Anesthetic Plan: MAC with general as back up Anesthetic Monitoring: Standard ASA Monitors Pain Management Plan: Parenteral or Oral ASA Class: 3 Other Medical Problems: None Chronic Beta Thais medication administered within 24 hours: N/A I have interviewed and examined the patient. I have reviewed the medical record and/or the pre-anesthesia evaluation, pertinent labs, and test results. Significant changes in the patient's condition since the History and Physical, not otherwise documented in primary service progress notes: No This contains updated information obtained within 48 hours of Surgery/Procedure. SIGNATURE: Verona Nieves MD PATIENT NAME: Hang Meza DATE: December 23, 2017 TIME: 10:02 AM CSN: [id number] Vane Woodruff, RN, RN 12/23/2017 10:06 AM Signed 0945 In ascu for preop observation Iv flushed without difficulty Family at bedside CBC W/DIFF, AUTOMATED Collected: 12/19/2017 Status: F Source: [place] 6:50 PM [facility] REPOSITORY TYPE CODE TESTS RESULT OUT OF RANGE REFERENCE UNITS LAB L100.1000 4.4-11.0 K/mm3 Normal WBC 6.6 LAB L100.1200 4.6-6.2 M/mm3 Low RBC 2.03 LAB L100.1300 13.0-16.5 g/dl Low HGB 7.1 LAB L100.1400 40-54 % Low HCT 22.6 LAB L100.1500 80-94 fL High MCV 111.3 LAB L100.1600 27.0-32.0 pg High MCH 35.0 LAB L100.1700 32-36 g/gl Low MCHC 31.4 LAB L100.1810 11.6-14.6 % High RDW CV 16.6 LAB L100.1820 35.1-43.9 fl High RDW SD 67.1 LAB L100.1900 150-450 K/mm3 Low PLT 84 LAB L100.2000 6.2-12.0 fl Normal MPV 11.7 LAB L100.2100 47-70 % High NEUT% 73.1 LAB L100.2200 19-41 % Low LY% 10.9 LAB L100.2300 0-10 % High MONO% 14.9 LAB L100.2400 0-5 % Normal EO% 0.3 LAB L100.2500 0-1 % Normal BASO% 0.2 LAB L100.2550 0.0-0.9 % Normal IM GRAN % 0.600 Result Comment: IG% - Immature Granulocytes (promyelocytes, myelocytes and metamyelocytes) > 1% indicates that a LEFT SHIFT is Present. LAB L100.2620 2.0-7.7 X10 3/uL Absolute Neut Normal 4.8 LAB L100.2720 0.83-4.51 X10 3/ul Low Absolute Lymph 0.72 LAB L100.7300 ANISO Normal 1+ LAB L100.7500 POLYCHROMASIA Normal RARE LAB L100.7800 MACROCYTE Normal 2+ LAB L100.8200 OVALOCYTE Normal RARE Performed By: #### L100.0100 #### [facility] [address] [place], [address] PROTHROMBIN TIME W/INR Collected: 12/19/2017 Status: F Source: [place] 6:50 PM [facility] REPOSITORY TYPE CODE TESTS RESULT OUT OF RANGE REFERENCE UNITS LAB L300.4150 11.7-14.9 SECONDS High PROTIME 17.6 LAB L300.4200 Normal INR 1.4 Performed By: #### L300.3900, L300.4310 #### [facility] [address] [facility] [id number] PARTIAL THROMBOPLAST Collected: 12/19/2017 Status: F Source: [facility] 6:50 PM [facility] REPOSITORY TYPE CODE TESTS RESULT OUT OF REFERENCE UNITS RANGE LAB L300.4310 24.1-36.2 Seconds High PTT 36.8 Performed By: #### L300.3900, L300.4310 #### [facility] [address] [facility] [address] COMPREHENSIVE METABOLIC Collected: 12/19/2017 Status: F Source: [place] 6:40 PM [facility] REPOSITORY TYPE CODE TESTS RESULT OUT OF RANGE REFERENCE UNITS LAB L501.0100 74-106 mg/dL High GLU 125 Result Comment: Fasting Glucose result from 100 to 125 mg/dL suggests IMPAIRED HOMEOSTASIS per A.D.A. criteria. Please note revised GLUCOSE reference range effective 2017. LAB L501.1000 7-18 mg/dL High BUN 48 LAB L501.1100 0.70-1.30 mg/dL High CREAT,SERUM 2.18 Result Comment: The validity of the calculated GFR AND GFRAA in patients over 70 years has not been determined. Clinical correlation is essential. LAB L501.1110 >60 mL/min Low EST GFR 31 Result Comment: Non- GFR Calc LAB L501.1115 >60 mL/min Low EST GFR - AA 38 Result Comment: GFR Calc LAB L501.1255 ml/min Normal Estimated CRCL 29.74 LAB L501.1300 10-20 RATIO High BUN/CRE 22.0 LAB L501.1500 6.4-8. g/dL Normal 2 T PROT 7.8 LAB L501.1800 3.2-5. g/dL Normal 0 ALB 3.2 LAB L501.1950 2.2-4. g/dL High 2 GLOB 4.6 LAB L501.2000 0.9-2. RATIO Low 4 A/G 0.7 LAB L501.2200 8.5-10 mg/dL Low .1 CA 8.4 LAB L501.4100 15-37 U/L High AST 48 Result Comment: Moderate Hemolysis, Result may be falsely increased. LAB L501.4305 45-117 U/L Normal ALK P 46 LAB L501.4405 16-61 U/L Normal ALT 26 LAB L501.4600 0.20-1.00 mg/dL Normal T BILI 0.70 LAB L501.5300 136-145 mmol/L Normal NA 136 LAB L501.5600 3.5-5.1 mmol/L High K 5.7 Result Comment: Moderate Hemolysis, Result may be falsely increased. LAB L501.5900 98-107 mmol/L Normal CL 105 LAB L501.6100 21.0-32.0 mmol/L Normal CO2 24.0 LAB L501.6200 5-15 Normal 7 GAP Performed By: #### L500.4050, L501.2450 #### [facility] [address] [place], [place], [id number] LIPASE Collected: 12/19/2017 Status: F Source: [place] 6:40 PM [facility] REPOSITORY TYPE CODE TESTS RESULT OUT OF REFERENCE UNITS RANGE LAB L501.2450 73-393 U/L High LIPASE 4224 Performed By: #### L500.4050, L501.2450 #### [facility] [address] [place], [address] BEDSIDE GLUCOSE Collected: 12/19/2017 Status: F Source: [place] 6:21 PM [facility] REPOSITORY TYPE CODE TESTS RESULT OUT OF REFERENCE UNITS RANGE LAB L501.080 70-110 mg/dL High BEDSIDE GLU 132 Result Comment: MANAGEMENT OF PATIENT CARE PER NURSING PROTOCOL Performed By: #### L501.080 #### [facility] Point of Care [address] [place] [address] CHEST PA AND LATERAL Observed: 12/19/2017 Status: F Source: [place] 5:54 PM [facility] REPOSITORY [facility] Services [address] [place] [address] Chest PA and Lateral MR#: [id number] Acct: [id number] Name: HANG MEZA Rep #: [id number] : 1940 M 77 From: Vannesa Gusman MD PCP: Kayla Bernstein HARNESS INSTALLER-C Status: REG ER Study: Chest PA and Lateral Date of Exam: 12/19/17 Exam# [id number] Ordering Dr: Taqueria Charles DO STUDY: X-RAY CHEST REASON FOR EXAM: Male, 77 years old. Esophageal pain. History of esophageal polyps TECHNIQUE: 2 views COMPARISON: Prior portable chest of November 23, 2016. FINDINGS: Lung melendez are moderately well-expanded without new consolidation or focal atelectasis. Negative for substantial pleural effusion. Normal size heart. Normal mediastinum and jeannine. Normal visualized pulmonary arteries. There is atherosclerotic calcification of the aortic arch with tortuosity. There are diffuse degenerative changes of the visualized thoracic spine. Normal visualized ribs, clavicles, and shoulders. There is no demonstrated abnormality of the visualized soft tissue structures of the upper abdomen. RAD/Chest PA and Lateral IMPRESSION: No acute cardiopulmonary findings or changes. Negative for new consolidation, focal atelectasis, pleural effusion or cardiomegaly. Electronically Signed: Vannesa Gusman MD at 18:33 EDT , Service support , CC: Kayla Bernstein; Taqueria Charles DO Wicker Worker: Signed XR OUTSIDE CD DICOM Observed: 12/19/2017 Status: F Source: [place] IMPORT -NBNR 12:00 AM CLINIC OTHER CAMPUS REPOSITORY Images were obtained outside of [facility] [id number] PROGRESS Observed: 12/17/2017 Status: COMPLETED Source: [place] 3:33 PM [facility] OTHER CAMPUS REPOSITORY HNO ID: [id number] Author: Pal Kim Service: (none) Author Type: Physician Type: Progress Notes Filed: 12/18/2017 11:11 AM Note Text: PERTINENT CARDIAC HISTORY Aortic stenosis - moderate ASHD? - abnormal ecg HTN HL DM TIA Syncope Anemia CRF ADHERENCE TO GUIDELINES CHRISTIANO-I or ARB for HF with prior LVEF<40 (NQF 0081) - N/A ASA or Plavix for ASHD (NQF 0067) - N/A Beta thais for ASHD with prior MA or prior LVEF<40 (NQF 0070) - N/A Beta thais for HF with prior LVEF<40 (NQF 0083) - N/A CHRISTIANO-I or ARB for ASHD with DM or prior LVEF<40 (NQF 0066) - N/A Statin therapy for ASHD or FHL or DM - N/A BMI documented and plan if >25 (NQF 0421) - lifestyle recommendation form Tobacco use screening and referral (NQF 0028) - lifestyle recommendation form Recommendation for whole food, plant based diet - lifestyle recommendation form CLINICAL IMPRESSION/PLAN: Hang Meza had an episode of syncope which is of unclear etiology. Likely, this was an episode of postural hypotension complicated by his multiple problems including severe anemia, aortic stenosis, borderline low blood pressure, etc. We discussed ways to try to prevent these episodes in the future. Support stockings were recommended. He is advised to keep well hydrated. There is no evidence of significant volume overload at this time. He may ultimately benefit from aortic valve surgery, but this would likely be years in the future. I will see him in 6 months at which time we will reassess. If he has increased chest pain, shortness of breath, exercise intolerance or recurrent syncope, I have asked him and his daughter to notify me. We will plan a repeat echocardiogram in one year. Thank you for asking me to see and make recommendations on Hang Meza. This report is available to you in the shared medical record. Written and verbal health teaching given to patient, patient verbalizes understanding and agrees with treatment plan. DIAGNOSIS FOR VISIT: Aortic stenosis Syncope HISTORY OF PRESENT ILLNESS Hang Meza is a 77 year gentleman who was referred by Kayla Bernstein NP, for recommendations regarding an episode of syncope and aortic valve disease. He has had a long-standing history of cardiac murmur and prior echocardiogram showed mild aortic stenosis. His echocardiogram was recently repeated and showed progression. He reports decreased exercise tolerance, which has been multifactorial. He has a severe anemia which is being evaluated, marked obesity, inactivity and conditioning. In addition, he has chronic renal disease and cirrhosis. His general performance status has not been good. He's had occasional heartburn related to acid reflux. He's had no exertional chest tightness. He denies orthopnea. He's had mild edema. He had a TIA several years ago. He does not remember the details. He's had no recent lateralizing neurologic symptoms or amaurosis. He denies claudication. He's had no palpitations. He had an episode of syncope with fall 2 months ago. He does not recall having any premonitory symptoms. He was found on the floor without severe injury. He wore a 30 day event monitor. He has had no further episodes. ALLERGIES: ALLERGIES No Known Allergies CURRENT OUTPATIENT MEDICATIONS: simvastatin (ZOCOR) 20 mg tablet Take 1 tablet by mouth once daily. sucralfate (CARAFATE) 1 gram tablet Take 1 tablet by mouth four times daily. insulin lispro (HUMALOG KWIKPEN) 100 unit/mL pen 12 u with breakfast, 22 u with lunch, 15 u with dinner plus 2 u per 50 > 150 TDD 90 units ferrous sulfate 325 mg (65 mg iron) tablet Take 1 tablet by mouth daily with breakfast. glipiZIDE (GLUCOTROL) 5 mg tablet Take 1 tablet by mouth daily before breakfast. levothyroxine (SYNTHROID) 25 mcg tablet Take 1 tablet by mouth once daily. spironolactone (ALDACTONE) 50 mg tablet Take 1 tablet by mouth once daily. metoprolol tartrate, short acting, (LOPRESSOR) 25 mg tablet Take 1 tablet by mouth twice daily. pantoprazole DR (PROTONIX) 40 mg tablet Take 1 tablet by mouth once daily. 30 minutes before eating. PSYLLIUM HUSK (METAMUCIL ORAL) Take by mouth once daily. loratadine (CLARITIN) 10 mg tablet Take 10 mg by mouth once daily. as needed aspirin, enteric coated (ASPIRIN, ENTERIC COATED) 81 mg EC tablet Take 81 mg by mouth once daily. as needed desoximetasone (TOPICORT) 0.25 % cream Apply thin layer twice daily insulin glargine (LANTUS) 100 unit/mL (3 mL) inpn Inject 25 Units subcutaneously twice daily. lancets (FREESTYLE LANCETS) 28 gauge misc Test blood glucose 4 times daily blood sugar diagnostic (FREESTYLE TEST) test strip Test blood glucose 4 times daily Insulin [place], Disposable, (BD ULTRAFINE III MINI PEN) 31 gauge x 3/16 ndle USE WITH INSULIN PENS 4 TIMES DAILY furosemide (LASIX) 40 mg tablet Take 40 mg by mouth every other day. Methylcellulose, Laxative, (FIBER THERAPY) 500 mg tab Take 500 mg by mouth DAILY. miconazole (LOTRIMIN AF, DESENEX) 2 % powder Apply 1 application to affected area twice daily. meclizine (ANTIVERT) 25 mg tab Take 1 tablet by mouth three times daily as needed. lactulose (ENULOSE) 10 gram/15 mL solution Take 30 mL by mouth once daily. rifaximin (XIFAXAN) 550 mg tab Take 1 tablet by mouth twice daily. 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 SPEC 06/02/2017 2 year repeat/hard IV stick - COLONOSCOPY 2013 - EGD 2013, 08/08 - EGD W/O OR W/BRUSH/WASH 06/02/2017 EGD - KIDNEY SURGERY HX - PAST SURGICAL HISTORY OF 2013 umbilical hernia repair - PAST SURGICAL HISTORY OF prostate biopsy FAMILY HISTORY Problem Relation Age of Onset - Heart Father MA - Prostate Cancer Father - Diabetes Mother - Breast Cancer Sister - Heart Brother - prescott [OTHER] Brother Social History Marital status: Spouse name: Years of education: Number of children: 5 Social History Main Topics Smoking status: Former Smoker Packs/day: 0.00 Years: 10.00 Types: Cigars Quit date: 11/07/2002 Smokeless status: Never Used Alcohol use: No Drug use: No Sexual activity: Yes Partners with: Female REVIEW OF SYSTEMS: General: No chills, fever, weight loss, night sweats. SHEENT: No change in vision or auditory acuity. Respiratory: No productive cough. Cardiac: As noted above. GI: No melena. History of GERD. History of cirrhosis : No dysuria. Musculoskeletal:Chronic myalgias. Neurologic: No strokes. Psychiatric: No depression. Endocrine:History of diabetes. Hematologic:Severe anemia. PHYSICAL EXAMINATION: S/he is alert and in no distress VITAL SIGNS: BP 111/64 Pulse 79 Wt 285 lb 6.4 oz (129.5kg) SHEENT: Skin is warm and dry. Pupils are round and reactive. Retinal vessels are grossly unremarkable. No xanthelasmas appreciated. Pharynx is benign. There is no oral cyanosis. Neck: supple. No adenopathy or thyroid enlargement. Chest: Clear to percussion and auscultation. Trachea is midline. Air entry is equal. There is no chest wall tenderness. Cardiac: Regular rhythm. S1 and S2 are normal. PMI is nondisplaced. There is a 3/6 mid systolic peaking murmur of aortic stenosis. No click is heard. Carotids are brisk without bruits. JVP is less than 10 cm. Abdomen: Soft and nontender. There are no pulsatile masses or bruits. There is marked obesity and examination is very limited. No liver enlargement. Bowel sounds are active. : Deferred. Extremities: 1 plus edema. Pulses are diminished but symmetrical. No clubbing or cyanosis. No femoral bruits. Neurologic: Grossly normal motor and sensory. S/he is alert and oriented x4. Musculoskeletal: No joint deformities. Echocardiogram was personally reviewed. This shows moderate aortic stenosis. Left ventricular function is preserved. Since prior study of 2014, aortic stenosis has progressed. EKG shows sinus rhythm. There is evidence of previous inferior infarct. No significant change is seen since 12/04/15. There is no evidence of infarct on the echocardiogram. Event monitor showed occasional atrial and ventricular prematures without pauses. No syncope was reported. Electronically Signed: Pal Kim MD December 17, 2017 3:33 PM CC: Kayla Bernstein APRN.CATALINA GILLESPIE Observed: 12/17/2017 Status: COMPLETED Source: [place] 2:00 PM [facility] REPOSITORY Office Visit ([facility]ARD[facility]) HANG MEZA ([id number]) 1940 M Date Time Provider Department 12/17/17 2:00 PM PAL KIM During your visit today, we recorded the following information about you: Pulse Blood pressure Weight 79/minute 111/64 129.5 kg Pal Kim MD 12/18/2017 11:11 AM Signed PERTINENT CARDIAC HISTORY Aortic stenosis - moderate ASHD? - abnormal ecg HTN HL DM TIA Syncope Anemia CRF ADHERENCE TO GUIDELINES CHRISTIANO-I or ARB for HF with prior LVEFANDlt;40 (NQF 0081) - N/A ASA or Plavix for ASHD (NQF 0067) - N/A Beta thais for ASHD with prior MA or prior LVEFANDlt;40 (NQF 0070) - N/A Beta thais for HF with prior LVEFANDlt;40 (NQF 0083) - N/A CHRISTIANO-I or ARB for ASHD with DM or prior LVEFANDlt;40 (NQF 0066) - N/A Statin therapy for ASHD or FHL or DM - N/A BMI documented and plan if ANDgt;25 (NQF 0421) - lifestyle recommendation form Tobacco use screening and referral (NQ 0028) - lifestyle recommendation form Recommendation for whole food, plant based diet - lifestyle recommendation form CLINICAL IMPRESSION/PLAN: Hang Meza had an episode of syncope which is of unclear etiology. Likely, this was an episode of postural hypotension complicated by his multiple problems including severe anemia, aortic stenosis, borderline low blood pressure, etc. We discussed ways to try to prevent these episodes in the future. Support stockings were recommended. He is advised to keep well hydrated. There is no evidence of significant volume overload at this time. He may ultimately benefit from aortic valve surgery, but this would likely be years in the future. I will see him in 6 months at which time we will reassess. If he has increased chest pain, shortness of breath, exercise intolerance or recurrent syncope, I have asked him and his daughter to notify me. We will plan a repeat echocardiogram in one year. Thank you for asking me to see and make recommendations on Hang Meza. This report is available to you in the shared medical record. Written and verbal health teaching given to patient, patient verbalizes understanding and agrees with treatment plan. DIAGNOSIS FOR VISIT: Aortic stenosis Syncope HISTORY OF PRESENT ILLNESS Hang Meza is a 77 year gentleman who was referred by Kayla Bernstein NP, for recommendations regarding an episode of syncope and aortic valve disease. He has had a long-standing history of cardiac murmur and prior echocardiogram showed mild aortic stenosis. His echocardiogram was recently repeated and showed progression. He reports decreased exercise tolerance, which has been multifactorial. He has a severe anemia which is being evaluated, marked obesity, inactivity and conditioning. In addition, he has chronic renal disease and cirrhosis. His general performance status has not been good. He's had occasional heartburn related to acid reflux. He's had no exertional chest tightness. He denies orthopnea. He's had mild edema. He had a TIA several years ago. He does not remember the details. He's had no recent lateralizing neurologic symptoms or amaurosis. He denies claudication. He's had no palpitations. He had an episode of syncope with fall 2 months ago. He does not recall having any premonitory symptoms. He was found on the floor without severe injury. He wore a 30 day event monitor. He has had no further episodes. ALLERGIES: ALLERGIES No Known Allergies CURRENT OUTPATIENT MEDICATIONS: simvastatin (ZOCOR) 20 mg tablet Take 1 tablet by mouth once daily. sucralfate (CARAFATE) 1 gram tablet Take 1 tablet by mouth four times daily. insulin lispro (HUMALOG KWIKPEN) 100 unit/mL pen 12 u with breakfast, 22 u with lunch, 15 u with dinner plus 2 u per 50 ANDgt; 150 TDD 90 units ferrous sulfate 325 mg (65 mg iron) tablet Take 1 tablet by mouth daily with breakfast. glipiZIDE (GLUCOTROL) 5 mg tablet Take 1 tablet by mouth daily before breakfast. levothyroxine (SYNTHROID) 25 mcg tablet Take 1 tablet by mouth once daily. spironolactone (ALDACTONE) 50 mg tablet Take 1 tablet by mouth once daily. metoprolol tartrate, short acting, (LOPRESSOR) 25 mg tablet Take 1 tablet by mouth twice daily. pantoprazole DR (PROTONIX) 40 mg tablet Take 1 tablet by mouth once daily. 30 minutes before eating. PSYLLIUM HUSK (METAMUCIL ORAL) Take by mouth once daily. loratadine (CLARITIN) 10 mg tablet Take 10 mg by mouth once daily. as needed aspirin, enteric coated (ASPIRIN, ENTERIC COATED) 81 mg EC tablet Take 81 mg by mouth once daily. as needed desoximetasone (TOPICORT) 0.25 % cream Apply thin layer twice daily insulin glargine (LANTUS) 100 unit/mL (3 mL) inpn Inject 25 Units subcutaneously twice daily. lancets (FREESTYLE LANCETS) 28 gauge misc Test blood glucose 4 times daily blood sugar diagnostic (FREESTYLE TEST) test strip Test blood glucose 4 times daily Insulin [place], Disposable, (BD ULTRAFINE III MINI PEN) 31 gauge x 3/16ANDquot; ndle USE WITH INSULIN PENS 4 TIMES DAILY furosemide (LASIX) 40 mg tablet Take 40 mg by mouth every other day. Methylcellulose, Laxative, (FIBER THERAPY) 500 mg tab Take 500 mg by mouth DAILY. miconazole (LOTRIMIN AF, DESENEX) 2 % powder Apply 1 application to affected area twice daily. meclizine (ANTIVERT) 25 mg tab Take 1 tablet by mouth three times daily as needed. lactulose (ENULOSE) 10 gram/15 mL solution Take 30 mL by mouth once daily. rifaximin (XIFAXAN) 550 mg tab Take 1 tablet by mouth twice daily. 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 PAST SURGICAL HISTORY Procedure Laterality Date - COLONOSCOP W/ OR W/O [facility] SPEC 06/02/2017 2 year repeat/hard IV stick - COLONOSCOPY 2013 - EGD 2013, 08/08 - EGD W/O OR W/BRUSH/WASH 06/02/2017 EGD - KIDNEY SURGERY HX - PAST SURGICAL HISTORY OF 2013 umbilical hernia repair - PAST SURGICAL HISTORY OF prostate biopsy FAMILY HISTORY Problem Relation Age of Onset - Heart Father MA - Prostate Cancer Father - Diabetes Mother - Breast Cancer Sister - Heart Brother - prescott [OTHER] Brother Social History Marital status: Spouse name: Years of education: Number of children: 5 Social History Main Topics Smoking status: Former Smoker Packs/day: 0.00 Years: 10.00 Types: Cigars Quit date: 11/07/2002 Smokeless status: Never Used Alcohol use: No Drug use: No Sexual activity: Yes Partners with: Female REVIEW OF SYSTEMS: General: No chills, fever, weight loss, night sweats. SHEENT: No change in vision or auditory acuity. Respiratory: No productive cough. Cardiac: As noted above. GI: No melena. History of GERD. History of cirrhosis : No dysuria. Musculoskeletal:Chronic myalgias. Neurologic: No strokes. Psychiatric: No depression. Endocrine:History of diabetes. Hematologic:Severe anemia. PHYSICAL EXAMINATION: S/he is alert and in no distress VITAL SIGNS: BP 111/64 Pulse 79 Wt 285 lb 6.4 oz (129.5kg) SHEENT: Skin is warm and dry. Pupils are round and reactive. Retinal vessels are grossly unremarkable. No xanthelasmas appreciated. Pharynx is benign. There is no oral cyanosis. Neck: supple. No adenopathy or thyroid enlargement. Chest: Clear to percussion and auscultation. Trachea is midline. Air entry is equal. There is no chest wall tenderness. Cardiac: Regular rhythm. S1 and S2 are normal. PMI is nondisplaced. There is a 3/6 mid systolic peaking murmur of aortic stenosis. No click is heard. Carotids are brisk without bruits. JVP is less than 10 cm. Abdomen: Soft and nontender. There are no pulsatile masses or bruits. There is marked obesity and examination is very limited. No liver enlargement. Bowel sounds are active. : Deferred. Extremities: 1 plus edema. Pulses are diminished but symmetrical. No clubbing or cyanosis. No femoral bruits. Neurologic: Grossly normal motor and sensory. S/he is alert and oriented x4. Musculoskeletal: No joint deformities. Echocardiogram was personally reviewed. This shows moderate aortic stenosis. Left ventricular function is preserved. Since prior study of 2014, aortic stenosis has progressed. EKG shows sinus rhythm. There is evidence of previous inferior infarct. No significant change is seen since 12/04/15. There is no evidence of infarct on the echocardiogram. Event monitor showed occasional atrial and ventricular prematures without pauses. No syncope was reported. Electronically Signed: Pal Kim MD December 17, 2017 3:33 PM CC: Kayla Bernstein APRN.ENVELOPE STAMPING MACHINE OPERATOR Pal Kim MD 12/17/2017 3:33 PM Signed LIFESTYLE CHANGE A healthy lifestyle is the most important component of your overall treatment plan. Please give serious thought to the following areas and commit to making long-term changes. EAT A WHOLE FOOD, PLANT BASED DIET The nutrition your body gets is more important than the medicine you take. What matters most is the overall way you eat. We encourage you to minimize the use of animal products (which include dairy and all meats except fatty fish) and use whole, unprocessed plant foods to provide your protein, vitamins and other nutrients. We have a lot of information to share with you on this topic. We also hold Shared Medical Appointments, where you can come visit with Dr. Kim in the company of other patients and spend over an hour talking about the challenges of changing the way you eat. This is not a ANDquot;dietANDquot;. It is a way of life that you will keep with you. EXERCISE REGULARLY It is not important to spend hours in the gym, lifting weights and perspiring heavily. A total of 2-3 hours per week of aerobic (causing you to be moderately short of breath) exercise is sufficient to improve your health. Talk to us before you begin a new exercise program, if you have heart disease or experience shortness of breath or chest pain. REDUCE STRESS Chronic emotional and physical stress leads to disease. Ways of reducing stress include meditation, visualization, prayer, yoga and other forms of relaxation therapy. Consistency is the nunez. Find a technique that works for you and do it every day. CULTIVATE RELATIONSHIPS Loneliness and isolation have a major negative impact on health. Seek out others who can love, care for and nurture you. Avoid hurtful relationships. MAINTAIN IDEAL BODY WEIGHT The best way to do this is to do all the things above. Our bodies naturally find the right weight if we keep moving and feed ourselves the right food. If your BMI is greater than 25, we strongly recommend a referral to a weight management program. Please speak to us or your family physician about available programs. AVOID NICOTINE IN ALL FORMS This includes all tobacco products, whether chewed, smoked, vaped, or rubbed on the skin. Smoking cessation programs, which can make use of tobacco substitutes, medications to suppress cravings and behavior management, are available. Please contact your family physician about programs in your area. Referring Provider: KAYLA BERNSTIEN (NAILA) [[id number]] Allergies As of Date: 12/17/2017 (No Known Allergies) Date Reviewed: 12/17/2017 Reviewed by: Sai (Rn) Mathew - Fully Assessed Reason for Visit: New Patient [172] Cmt: Referred by Dr. Bernstein, aortic valve thickening Primary Visit Diagnosis:Nonrheumatic aortic valve stenosis [I35.0] Other Visit Diagnosis:ASHD (arteriosclerotic heart disease) [I25.10] Prescriptions as of 12/17/2017 Sig: SIMVASTATIN 20 MG TABLET Take 1 tablet by mouth once d* SUCRALFATE 1 GRAM TABLET Take 1 tablet by mouth four t* INSULIN LISPRO 100 UNIT/ML JAIMES* 12 u with breakfast, 22 u wit* FERROUS SULFATE 325 MG (65 MG* Take 1 tablet by mouth daily * GLIPIZIDE 5 MG TABLET Take 1 tablet by mouth daily * LEVOTHYROXINE 25 MCG TABLET Take 1 tablet by mouth once d* SPIRONOLACTONE 50 MG TABLET Take 1 tablet by mouth once d* METOPROLOL TARTRATE 25 MG TAB* Take 1 tablet by mouth twice * PANTOPRAZOLE 40 MG TABLET,DEL* Take 1 tablet by mouth once d* METAMUCIL ORAL Take by mouth once daily. LORATADINE 10 MG TABLET Take 10 mg by mouth once lilian* ASPIRIN 81 MG TABLET,DELAYED * Take 81 mg by mouth once lilian* DESOXIMETASONE 0.25 % TOPICAL* Apply thin layer twice daily INSULIN GLARGINE (U-100) 100 * Inject 25 Units subcutaneousl* LANCETS 28 GAUGE Test blood glucose 4 times da* BLOOD SUGAR DIAGNOSTIC STRIPS Test blood glucose 4 times da* PEN NEEDLE, DIABETIC 31 GAUGE* USE WITH INSULIN PENS 4 TIMES* FUROSEMIDE 40 MG TABLET Take 40 mg by mouth every oth* METHYLCELLULOSE (LAXATIVE) 50* Take 500 mg by mouth DAILY. MICONAZOLE NITRATE 2 % TOPICA* Apply 1 application to affect* MECLIZINE 25 MG TABLET Take 1 tablet by mouth three * LACTULOSE 10 GRAM/15 ML ORAL * Take 30 mL by mouth once lilian* RIFAXIMIN 550 MG TABLET Take 1 tablet by mouth twice * Problem List As Of Date 12/17/2017 Noted Resolved Viral gastroenteritis [A08.4] INVALID FOR*09/06/2014 Dehydration [E86.0] INVALID FOR*09/06/2014 Hypothyroidism [E03.9] GERD (gastroesophageal reflux disease) [K21.9] Renal disorder [N28.9] More... 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 History of colonic polyps [Z86.010] INVALID FOR* More... Morbid obesity (HCC) [E66.01] INVALID FOR* Anemia, chronic renal failure, stage 3 (moderat*INVALID FOR* Other instructions from your clinician: LIFESTYLE CHANGE A healthy lifestyle is the most important component of your overall treatment plan. 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 EAT A WHOLE FOOD, PLANT BASED DIET The nutrition your body gets is more important than the medicine you take. What matters most is the overall way you eat. We encourage you to minimize the use of animal products (which include dairy and all meats except fatty fish) and use whole, unprocessed plant foods to provide your protein, vitamins and other nutrients. We have a lot of information to share with you on this topic. We also hold Shared Medical Appointments, where you can come visit with Dr. Kim in the company of other patients and spend over an hour talking about the challenges of changing the way you eat. This is not a diet. It is a way of life that you will keep with you. EXERCISE REGULARLY It is not important to spend hours in the gym, lifting weights and perspiring heavily. A total of 2-3 hours per week of aerobic (causing you to be moderately short of breath) exercise is sufficient to improve your health. Talk to us before you begin a new exercise program, if you have heart disease or experience shortness of breath or chest pain. REDUCE STRESS Chronic emotional and physical stress leads to disease. Ways of reducing stress include meditation, visualization, prayer, yoga and other forms of relaxation therapy. Consistency is the nunez. Find a technique that works for you and do it every day. CULTIVATE RELATIONSHIPS Loneliness and isolation have a major negative impact on health. Seek out others who can love, care for and nurture you. Avoid hurtful relationships. MAINTAIN IDEAL BODY WEIGHT The best way to do this is to do all the things above. Our bodies naturally find the right weight if we keep moving and feed ourselves the right food. If your BMI is greater than 25, we strongly recommend a referral to a weight management program. Please speak to us or your family physician about available programs. AVOID NICOTINE IN ALL FORMS This includes all tobacco products, whether chewed, smoked, vaped, or rubbed on the skin. Smoking cessation programs, which can make use of tobacco substitutes, medications to suppress cravings and behavior management, are available. Please contact your family physician about programs in your area. Follow-up and Disposition History Recorded Encounter Status:Closed by PAL KIM MD on 12/18/17 BASIC METABOLIC Collected: 12/12/2017 Status: F Source: [place] PRO[facility] (BMP) 10:34 AM [facility] REPOSITORY TYPE CODE TESTS RESULT OUT OF RANGE REFERENCE UNITS LAB L501.0100 74-106 mg/dL High GLU 171 Result Comment: Fasting Glucose result greater than or equal to 126 mg/dL suggests DIABETES MELLITUS per A.D.A. criteria. Please note revised GLUCOSE reference range effective 2017. LAB L501.1000 7-18 mg/dL High BUN 46 LAB L501.1100 0.70-1.30 mg/dL High CREAT,SERUM 2.17 Result Comment: The validity of the calculated GFR AND GFRAA in patients over 70 years has not been determined. Clinical correlation is essential. LAB L501.1110 >60 mL/min Low EST GFR 31 Result Comment: Non- GFR Calc LAB L501.1115 >60 mL/min Low EST GFR - AA 38 Result Comment: GFR Calc LAB L501.1300 10-20 RATIO High BUN/CRE 21.2 LAB L501.2200 8.5-10.1 mg/dL Low CA 8.3 LAB L501.5300 136-145 mmol/L Low NA 135 LAB L501.5600 3.5-5.1 mmol/L K Normal 5.0 LAB L501.5900 98-107 mmol/L CL Normal 103 LAB L501.6100 21.0-32.0 mmol/L Normal CO2 24.0 LAB L501.6200 5-15 Normal GAP 8 Performed By: #### L500.2500 #### [facility] [address] [place] [address] [place] [place], [place], [address] [place] HEMATOCRIT Collected: 12/09/2017 Status: F Source: [place] 10:15 AM [facility] REPOSITORY TYPE CODE TESTS RESULT OUT OF REFERENCE UNITS RANGE LAB WHCT 39.0-51.0 % Low [place] Hematocrit 23.3 Result Comment: Test performed at: [facility], [address] [place] [address] [address] [place] [address]. [place] HEMOGLOBIN Collected: 12/09/2017 Status: F Source: [place] 10:15 AM [facility] REPOSITORY TYPE CODE TESTS RESULT OUT OF REFERENCE UNITS RANGE LAB WHGB 13.0-17.0 g/dL Low [place] Hemoglobin 7.1 Result Comment: Test performed at: [facility], [address] [place] [address]. [place] HEMATOCRIT Collected: 11/25/2017 Status: F Source: [place] 2:22 PM [facility] REPOSITORY TYPE CODE TESTS RESULT OUT OF REFERENCE UNITS RANGE LAB WHCT 39.0-51.0 % Low [place] Hematocrit 25.2 Result Comment: Test performed at: [facility], [address] [place] [address]. [place] HEMOGLOBIN Collected: 11/25/2017 Status: F Source: [place] 2:22 PM [facility] REPOSITORY TYPE CODE TESTS RESULT OUT OF REFERENCE UNITS RANGE LAB WHGB 13.0-17.0 g/dL Low [place] Hemoglobin 7.9 Result Comment: Test performed at: [facility], [address] [place] [address]. NURSING PROG Observed: 11/24/2017 Status: COMPLETED Source: [place] 10:05 AM [facility] REPOSITORY HNO ID: [id number] Author: Stephanie Nesbitt RN Service: (none) Author Type: Registered Nurse Type: Nursing Progress Note Filed: 11/24/2017 10:06 AM Note Text: Patient did not experience a fall prior to discharge. Patient did not experience a burn prior to discharge. Stephanie Nesbitt RN NURSING PROG Observed: 11/24/2017 Status: COMPLETED Source: [place] 9:46 AM [facility] REPOSITORY HNO ID: [id number] Author: Stephanie Nesbitt RN Service: (none) Author Type: Registered Nurse Type: Nursing Progress Note Filed: 11/24/2017 9:47 AM Note Text: Dr. Jones at bedside to review procedure and recommendations. Stephanie Nesbitt RN PT ED Observed: 11/24/2017 Status: COMPLETED Source: [place] 9:37 AM [facility] REPOSITORY HNO ID: [id number] Author: Stephanie Nesbitt RN Service: (none) Author Type: Registered Nurse Type: Patient Education Filed: 11/24/2017 9:38 AM Note Text: POST OP LEARNING RESPONSE INSTRUCTION PROVIDED TO: Patient and family member METHOD OF INSTRUCTION: Individual instruction Written instruction - handouts Verbal instruction PATIENT / FAMILY RESPONSE: Information received as demonstrated by interest and questions FOLLOW-UP PLAN: Follow up phone call. Contact information given. SUPPLEMENTAL MATERIAL: Procedure discharge instructions REFERRAL (RECOMMENDATION): None Electronically Signed By: Stephanie Nesbitt RN In Department: AMBULATORY SURGERY NURSING PROG Observed: 11/24/2017 Status: COMPLETED Source: [place] 9:09 AM [facility] REPOSITORY HNO ID: [id number] Author: Stephanie Nesbitt RN Service: (none) Author Type: Registered Nurse Type: Nursing Progress Note Filed: 11/24/2017 9:23 AM Note Text: Arrived in phase II via cart. Left lateral position. Sedated, but responds to verbal stimuli. Color normal; skin warm and dry. Respirations wnl and unlabored. Abdomen soft and with + bowel sounds in quads X 4. Family at bedside. Patient resting comfortably. Stephanie Nesbitt RN NURSING PROG Observed: 11/24/2017 Status: COMPLETED Source: [place] 9:07 AM [facility] REPOSITORY HNO ID: [id number] Author: Elicia UlloaRnJacob Medina RN Service: Nursing Author Type: Registered Nurse Type: Nursing Progress Note Filed: 11/24/2017 9:07 AM Note Text: Patient did not experience a fall within the Intraoperative area. Patient did not experience a burn within the Intraoperative area. Elicia Medina RN HISTORY PHYSICAL Observed: 11/24/2017 Status: COMPLETED Source: [place] 8:51 AM [facility] REPOSITORY HNO ID: [id number] Author: Derrick Jones Service: Gastroenterology Author Type: Physician Type: HANDP Filed: 11/24/2017 8:52 AM Note Text: PROCEDURAL SEDATION HISTORY AND PHYSICAL EXAM SERVICE DATE: 11/24/2017 SERVICE TIME: 8:52 AM Subjective HPI: This is a 77 year old male who presents with epigastric distress and anemia PAST ANESTHESIA HISTORY: No history of adverse event 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 PAST SURGICAL HISTORY Procedure Laterality Date - COLONOSCOP W/ OR W/O BRSH SPEC 06/02/2017 2 year repeat/hard IV stick - COLONOSCOPY 2013 - EGD 2013, 08/08 - EGD W/O OR W/BRUSH/WASH 06/02/2017 EGD - KIDNEY SURGERY HX - PAST SURGICAL HISTORY OF 2013 umbilical hernia repair - PAST SURGICAL HISTORY OF prostate biopsy Prior to Admission medications as of 11/24/17 0722 Medication Sig Last Dose Taking insulin lispro (HUMALOG KWIKPEN) 100 unit/mL pen 12 u with breakfast, 22 u with lunch, 15 u with dinner plus 2 u per 50 > 150 TDD 90 units 11/23/2017 at 1700 Yes ferrous sulfate 325 mg (65 mg iron) tablet Take 1 tablet by mouth daily with breakfast. 11/23/2017 at 0830 Yes glipiZIDE (GLUCOTROL) 5 mg tablet Take 1 tablet by mouth daily before breakfast. 11/23/2017 at 0800 Yes levothyroxine (SYNTHROID) 25 mcg tablet Take 1 tablet by mouth once daily. 11/23/2017 at 0500 Yes spironolactone (ALDACTONE) 50 mg tablet Take 1 tablet by mouth once daily. 11/23/2017 at Unknown time Yes metoprolol tartrate, short acting, (LOPRESSOR) 25 mg tablet Take 1 tablet by mouth twice daily. 11/23/2017 at 1700 Yes simvastatin (ZOCOR) 20 mg tablet Take 1 tablet by mouth once daily. 11/23/2017 at Unknown time Yes pantoprazole DR (PROTONIX) 40 mg tablet Take 1 tablet by mouth once daily. 30 minutes before eating. 11/24/2017 at 0500 Yes PSYLLIUM HUSK (METAMUCIL ORAL) Take by mouth once daily. 11/23/2017 at Unknown time Yes aspirin, enteric coated (ASPIRIN, ENTERIC COATED) 81 mg EC tablet Take 81 mg by mouth once daily. as needed 11/23/2017 at 1200 Yes desoximetasone (TOPICORT) 0.25 % cream Apply thin layer twice daily 11/23/2017 at 2100 Yes insulin glargine (LANTUS) 100 unit/mL (3 mL) inpn Inject 25 Units subcutaneously twice daily. 11/23/2017 at 2100 Yes lancets (FREESTYLE LANCETS) 28 gauge misc Test blood glucose 4 times daily 11/24/2017 at 0601 Yes blood sugar diagnostic (FREESTYLE TEST) test strip Test blood glucose 4 times daily 11/24/2017 at 0601 Yes Insulin [place], Disposable, (BD ULTRAFINE III MINI PEN) 31 gauge x 3/16 ndle USE WITH INSULIN PENS 4 TIMES DAILY 11/23/2017 at 2100 Yes Methylcellulose, Laxative, (FIBER THERAPY) 500 mg tab Take 500 mg by mouth DAILY. 11/23/2017 at Unknown time Yes lactulose (ENULOSE) 10 gram/15 mL solution Take 30 mL by mouth once daily. 11/23/2017 at 1200 Yes rifaximin (XIFAXAN) 550 mg tab Take 1 tablet by mouth twice daily. 11/23/2017 at 2100 Yes loratadine (CLARITIN) 10 mg tablet Take 10 mg by mouth once daily. as needed Unknown at Unknown time furosemide (LASIX) 40 mg tablet Take 40 mg by mouth every other day. 11/22/17 miconazole (LOTRIMIN AF, DESENEX) 2 % powder Apply 1 application to affected area twice daily. Unknown at Unknown time meclizine (ANTIVERT) 25 mg tab Take 1 tablet by mouth three times daily as needed. Unknown at Unknown time ALLERGIES No Known Allergies Objective PHYSICAL EXAM: The remainder of the physical exam is noncontributory. AIRWAY: Airway Visualization of Uvula: Yes Mouth opening greater than 2 fingerbreadths: Yes Neck Full Range of Motion: Yes LUNGS: Lungs clear to auscultation, Good diaphragmatic excursion CARDIAC: Normal S1 and S2; no rubs, murmurs, or gallops Assessment/Plan ASA Class: ASA Class:: Patient with mild systemic disease Active Problems: * No active hospital problems. * Resolved Problems: * No resolved hospital problems. * Provisional Diagnosis/Treatment Plan: Epigastric distress and anemia/EGD SEDATION GOAL: Moderate SIGNATURE: Derrick Jones MD PATIENT NAME: Hang Meza DATE: November 24, 2017 TIME: 8:51 AM PAGER: NURSING PROG Observed: 11/24/2017 Status: COMPLETED Source: [place] 8:49 AM [facility] [place] REPOSITORY HNO ID: [id number] Author: Chrissy VanegasJacob Marques RN Service: (none) Author Type: Registered Nurse Type: Nursing Progress Note Filed: 11/24/2017 8:49 AM Note Text: Patient did not experience a fall within the Preoperative area. Patient did not experience a burn within the Preoperative area. [facility] PRE-OP NURSING HAND OFF NOTE SBAR Hand off given to Elicia Medina RN. Hand off was communicated verbally and at the patient's bedside and all questions were answered. ANAND Stein RN PT ED Observed: 11/24/2017 Status: COMPLETED Source: [place] 7:35 AM [facility] REPOSITORY HNO ID: [id number] Author: Chrissy Marques RN Service: (none) Author Type: Registered Nurse Type: Patient Education Filed: 11/24/2017 7:37 AM Note Text: PRE OP LEARNING ASSESSMENT PROCEDURE/SURGERY: GI PROCEDURES: EGD READINESS TO LEARN COGNITIVE ABILITY: Alert and oriented MOTIVATION TO LEARN: Eager Interested FAMILY SUPPORT: High - Very involved in pt care PATIENT LEARNS BEST BY: Individual Instruction Written Instruction - Hand-outs Verbal Instruction Multiple Methods FACTORS AFFECTING LEARNING: None PHYSICAL LIMITATIONS AFFECTING LEARNING: None Electronically Signed By: Chrissy Marques RN In Department: AMBULATORY SURGERY SURGICAL PATHOLOGY Observed: 11/24/2017 Status: F Source: [place] 12:00 AM [facility] REPOSITORY Specimen originated from [facility] Specimen #: [id number] Submitting Physician: DERRICK JONES MD FINAL DIAGNOSIS Stomach, polyp, biopsy - Predominantly granulation tissue and fibrinopurulent exudate, compatible with gastric hyperplastic polyp. - No evidence of dysplasia or carcinoma. KL/dss 11/25/2017 Noe Sommer M.D. (Electronic Signature) SPECIMEN SUBMITTED A: GASTRIC POLYP, BIOPSY CLINICAL DATA R11.2, K74.60, D64.9 GROSS DESCRIPTION A. Received in formalin are three pieces of harrell, soft tissue aggregating to 2.0 x 0.3 x 0.2 cm. Totally submitted in one cassette. Gross examination performed at [facility], [address] [place] [address] 11/24/2017 11:14:50 PM Date of Report: 11/25/2017 Date of Procedure: 11/24/2017 Date of Receipt: 11/24/2017 Submitted by: DERRICK JONES MD Location: [id number] Diagnostic interpretation performed at [place] [address]. PROGRESS Observed: 11/11/2017 Status: COMPLETED Source: [place] 1:10 PM [facility] REPOSITORY HNO ID: [id number] Author: Elise Reid (Sw) Service: (none) Author Type: Repair Welder Type: Progress Notes Filed: 11/11/2017 1:16 PM Note Text: SOCIAL WORK DISTRESS ASSESSMENT Referral made due to:Moderate distress Contact was made: Kicj-dj-Suvr Problems Addressed: Practical: N/A Family: N/A Emotional: N/A Spiritual Concerns: N/A Physical Problems: Breathing, Constipation, Indigestion, Pain, Skin dry/itchy and Tingling in hands/feet Exercising: N/A Stress Management: No Is the patient's distress related to a change in quality of life? No Patient with current Suicidal Ideation: No MENTAL HEALTH HISTORY: No Substance Use and Treatment History: denied History of Abuse: denied History of combat/trauma: No INTERVENTION/PLAN: Monitor patient response to treatment Communicate pertinent medical/psychosocial information to [facility] team Provide emotional support to patient/family Provided education on distress and screening process Continue follow up as needed Resources and Referrals: ? Internal: Support Group ? External: N/A Follow up appointment with EMMIE in: [place] met with patient and his daughter to discuss distress per KP tablet. Patient reports he recently fell, which resulted in him injuring his shoulder, knee and getting a concussion. Patient is linked with [employer] and has [employer] coverage. Patient reports great support system and his daughter lives with him to help out. Patient's daughter is very involved with his care and also has a hearing care practitioner through his insurance that helps. Patient denies any needs at this time and seems to be in good spirits. Patient's daughter is agreeable to calling if any needs arise. [place] PROGRESS Observed: 11/11/2017 Status: COMPLETED Source: [place] 12:44 PM [facility] [place] REPOSITORY HNO ID: [id number] Author: Deion Padro Service: (none) Author Type: Physician Type: Progress Notes Filed: 11/12/2017 8:29 AM Note Text: PATIENT NAME: Hang Meza. [facility] NO: [id number]. ATTENDING PHYSICIAN: Deion Pardo MD. DATE OF SERVICE:10/30/2017. ? DIAGNOSIS: anemia of chronic disease and thrombocytopenia secondary to cirrhosis. Stage III chronic renal failure ? ? HPI: this is a 77-year-old gentleman with history of chronic anemia who presented to [facility] because of a recent fall and loss of consciousness. He has a chronic anemia for many years, but beginning last fall his hemoglobin has been dropping rapidly. GI workup including EGD and colonoscopy showed no source of bleeding or pathology. A benign polyp was removed from his colon, and there were no evidence of esophageal varices. ? He saw Dr. Hodges (hepatology) last month for chronic liver disease, and cirrhosis. Patient has history of fatty liver disease, but no review his liver biopsy. he denied jaundice or any evidence of ascites. he had previous endoscopy colonoscopy last year here with Dr. Jones. He also saw Dr. Ball (nephrology) for chronic renal failure. Aldactone decreased to once daily. Increased iron supplement once daily for anemia. He also has history of thrombocytopenia, without any bleeding issues. he denied rectal bleeding, melena, hematuria or hemoptysis. Patient has no history of alcohol use, or viral hepatitis. Patient has been feeling more tired in the last 4-6 weeks. He has dyspnea with exertion, but no chest pain or palpitation. He denied dizziness or lightheadedness. No increased lethargy or frequent headaches. He has fallen one time in the last 3 months. +cold intolerance, no restless legs symptoms. Patient denied jaundice or dark urine or yarelis colored stool. Complain of frequent urination at night which keep him up. He also noted increase in edema. He denied change in weight or decreased appetite. He is a and was once. He is not sexually active. no family history of cancer or anemia, son with HIV. interim history: Patient did receive 2 unit blood transfusion 2 weeks ago because of severe anemia. His stool was heme positive. He complained of having increased epigastric tenderness, nausea and heartburn for the last 2 weeks. Also he denies any melena or hemataemesis. His stool as dark , because of his oral iron supplements. patient still has complaint of severe fatigue, shortness of breath, and generalized weakness. He has no jaundice, increased lethargy or mental status change. patient is distress but not depressed or anxious mostly because of his symptoms. All medications AND allergies updated and KP score reviewed by me. REVIEW OF SYSTEMS: ? CONSTITUTIONAL: No fevers, chills, nightsweats, unintended weight loss + fatigue HEENT: Denies frequent or severe heaches, nasal congestion/sinus symptoms, problematic allergy problems. EYES: No diplopia or blurry vision. CARDIOVASCULAR: No chest pain, + dyspnea with exertion, palpitations, orthopnea, PND, + ankle edema. PULM: No dyspnea at rest, unexplained cough. GI: No dysphagia/odynophagia, problematic reflux, constipation, diarrhea, changes in stool habits, hematochezia, melena. : No new urinary complaints, including dysuria, gross hematuria or pyuria. NEURO: No new balance problems, peripheral weakness/paresthesias or numbness of concern. MUSC-SKEL: No new joint pain, swelling, or erythema. PSY: No concerns regarding depression, anxiety or panic. INTEGUMENTARY: No new skin changes (rash, new or changing mole, new growth) ? PHYSICAL EXAMINATION: 77-year-old well-nourished well-developed gentleman in no Distress. BP 131/59 Pulse 74 Temp 98 Wt 286 lb (129.7kg) Complexion pale. HEENT: Head is normocephalic, atraumatic. Sclerae white, conjunctivae pink. PEERL. EOMs are intact. Oropharynx is benign. LYMPHATICS: There is no palpable adenopathy in the neck, supraclavicular region, axillae, or groin. LUNGS: Lungs are clear to percussion and auscultation. diminished breath sounds at bases HEART: Heart is normal + grade 2/6 systolic murmurs, no gallops, or rubs. ABDOMEN: obese, Soft and nontender without organomegaly. No masses or ascites. EXTREMITIES: Are +1 edema. NEUROLOGIC: Exam is physiologic ? LABORATORY DATA: Component Latest Ref Rng AND Units 11/11/2017 WBC, [place] 3.70 - 11.00 k/uL 8.36 RBC, [place] 4.20 - 6.00 m/uL 2.27 (L) Hemoglobin, [place] 13.0 - 17.0 g/dL 7.8 (L) Hematocrit, [place] 39.0 - 51.0 % 25.4 (L) MCV, [place] 80.0 - 100.0 fL 111.9 (H) MCH, [place] 26.0 - 34.0 pg 34.4 (H) MCHC, [place] 30.5 - 36.0 g/dL 30.7 RDW, [place] 11.5 - 15.0 % 17.8 (H) Platelet Cnt, [place] 150 - 400 k/uL 115 (L) MPV, [place] 9.0 - 12.7 fL 12.4 Absol Gran Count 1.45 - 7.50 k/uL 5.41 Component Latest Ref Rng AND Units 11/03/2017 11/04/2017 11/04/2017 10:30 AM 12:30 PM Occult Blood Source Stool Stool Stool Occult Blood Diagnostic Positive (A) Negative Negative ? Component Latest Ref Rng AND Units 10/30/2017 Albumin 3.9 - 4.9 g/dL 3.6 (L) Bilirubin, Total 0.2 - 1.3 mg/dL 0.7 Bilirubin, Conjug <0.2 mg/dL 0.2 (H) Alkaline Phosphatase 36 - 108 U/L 47 AST 14 - 40 U/L 32 ALT 10 - 54 U/L 16 Protein, Total 6.3 - 8.0 g/dL 7.8 Iron 41 - 186 ug/dL 207 (H) TIBC 232 - 386 ug/dL 395 (H) Transferrin Saturation 15 - 57 % 52 Retic % 0.4 - 2.0 % 4.9 (H) Abs Retic 0.0180 - 0.1000 M/uL 0.102 (H) HIV 12 Combo (Ag/Ab) Non Reactive Non Reactive Ferritin 30.3 - 565.7 ng/mL 66.4 LD 135 - 225 U/L 172 Haptoglobin 31 - 238 mg/dL 105 Hep C Antibody IA Negative Negative IMAGING: liver spleen scan: No evidence for splenomegaly. ?No focal hepatic abnormality. ?Colloid shift noted consistent with cirrhosis. 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 epigastric pain, nausea and heme-positive stool- need further immediate evaluation. PLAN: - refer to Dr. Jones for upper endoscopy -SAMUEL - continue iron and multivitamin replacement therapy - Start Aranesp 60mcg sq every 14 days for anemia secondary to chronic renal failure. Maintain hemoglobin about 10 gm/dl and avoid blood transfusion - Monitor HANDH every 2 weeks x 6 - Repeat CBC, CMP, iron study OV in 3 months. I spent 25 minutes in the visit, with more than 50% of the total [id number] time of the visit in counseling / coordination of care. Side effects and benefits of Aranesp were discussed with the patient and family. The patient and family were allowed enough time to ask questions. All questions were answered to their satisfaction. Patient and family verbalized understanding of treatment plan and agreed to proceed with therapy. Deion Pardo MD Cc: Dr. Jocelyn Jones CNOVSP Observed: 11/11/2017 Status: COMPLETED Source: [place] 11:50 AM [facility] REPOSITORY Visit (SP) Office ([place]) HANG MEZA ([id number]) 1940 M Date Time Provider Department 11/11/17 11:50 AM DEION PARDO During your visit today, we recorded the following information about you: Temperature Pulse Blood pressure Weight 98 degrees 74/minute 131/59 129.7 kg Lisa Zuñiga LPN, SEKOU 11/11/2017 12:09 PM Signed Est pt, discuss recent lab results, 2 week f/u SEKOU Sorenson MD 11/12/2017 8:29 AM Signed PATIENT NAME: Hang Meza. CLINIC NO: [id number]. ATTENDING PHYSICIAN: Deion Pardo MD. DATE OF SERVICE:10/30/2017. ? DIAGNOSIS: anemia of chronic disease and thrombocytopenia secondary to cirrhosis. Stage III chronic renal failure ? ? HPI: this is a 77-year-old gentleman with history of chronic anemia who presented to [facility] because of a recent fall and loss of consciousness. He has a chronic anemia for many years, but beginning last fall his hemoglobin has been dropping rapidly. GI workup including EGD and colonoscopy showed no source of bleeding or pathology. A benign polyp was removed from his colon, and there were no evidence of esophageal varices. ? He saw Dr. Hodges (hepatology) last month for chronic liver disease, and cirrhosis. Patient has history of fatty liver disease, but no review his liver biopsy. he denied jaundice or any evidence of ascites. he had previous endoscopy colonoscopy last year here with Dr. Jones. He also saw Dr. Ball (nephrology) for chronic renal failure. Aldactone decreased to once daily. Increased iron supplement once daily for anemia. He also has history of thrombocytopenia, without any bleeding issues. he denied rectal bleeding, melena, hematuria or hemoptysis. Patient has no history of alcohol use, or viral hepatitis. Patient has been feeling more tired in the last 4-6 weeks. He has dyspnea with exertion, but no chest pain or palpitation. He denied dizziness or lightheadedness. No increased lethargy or frequent headaches. He has fallen one time in the last 3 months. +cold intolerance, no restless legs symptoms. Patient denied jaundice or dark urine or yarelis colored stool. Complain of frequent urination at night which keep him up. He also noted increase in edema. He denied change in weight or decreased appetite. He is a and was once. He is not sexually active. no family history of cancer or anemia, son with HIV. interim history: Patient did receive 2 unit blood transfusion 2 weeks ago because of severe anemia. His stool was heme positive. He complained of having increased epigastric tenderness, nausea and heartburn for the last 2 weeks. Also he denies any melena or hemataemesis. His stool as dark , because of his oral iron supplements. patient still has complaint of severe fatigue, shortness of breath, and generalized weakness. He has no jaundice, increased lethargy or mental status change. patient is distress but not depressed or anxious mostly because of his symptoms. All medications ANDamp; allergies updated and KP score reviewed by me. REVIEW OF SYSTEMS: ? CONSTITUTIONAL: No fevers, chills, nightsweats, unintended weight loss + fatigue HEENT: Denies frequent or severe heaches, nasal congestion/sinus symptoms, problematic allergy problems. EYES: No diplopia or blurry vision. CARDIOVASCULAR: No chest pain, + dyspnea with exertion, palpitations, orthopnea, PND, + ankle edema. PULM: No dyspnea at rest, unexplained cough. GI: No dysphagia/odynophagia, problematic reflux, constipation, diarrhea, changes in stool habits, hematochezia, melena. : No new urinary complaints, including dysuria, gross hematuria or pyuria. NEURO: No new balance problems, peripheral weakness/paresthesias or numbness of concern. MUSC-SKEL: No new joint pain, swelling, or erythema. PSY: No concerns regarding depression, anxiety or panic. INTEGUMENTARY: No new skin changes (rash, new or changing mole, new growth) ? PHYSICAL EXAMINATION: 77-year-old well-nourished well-developed gentleman in no Distress. BP 131/59 Pulse 74 Temp 98 Wt 286 lb (129.7kg) Complexion pale. HEENT: Head is normocephalic, atraumatic. Sclerae white, conjunctivae pink. PEERL. EOMs are intact. Oropharynx is benign. LYMPHATICS: There is no palpable adenopathy in the neck, supraclavicular region, axillae, or groin. LUNGS: Lungs are clear to percussion and auscultation. diminished breath sounds at bases HEART: Heart is normal + grade 2/6 systolic murmurs, no gallops, or rubs. ABDOMEN: obese, Soft and nontender without organomegaly. No masses or ascites. EXTREMITIES: Are +1 edema. NEUROLOGIC: Exam is physiologic ? LABORATORY DATA: Component Latest Ref Rng ANDamp; Units 11/11/2017 WBC, [place] 3.70 - 11.00 k/uL 8.36 RBC, [place] 4.20 - 6.00 m/uL 2.27 (L) Hemoglobin, [place] 13.0 - 17.0 g/dL 7.8 (L) Hematocrit, [place] 39.0 - 51.0 % 25.4 (L) MCV, [place] 80.0 - 100.0 fL 111.9 (H) MCH, [place] 26.0 - 34.0 pg 34.4 (H) MCHC, [place] 30.5 - 36.0 g/dL 30.7 RDW, [place] 11.5 - 15.0 % 17.8 (H) Platelet Cnt, [place] 150 - 400 k/uL 115 (L) MPV, [place] 9.0 - 12.7 fL 12.4 Absol Gran Count 1.45 - 7.50 k/uL 5.41 Component Latest Ref Rng ANDamp; Units 11/03/2017 11/04/2017 11/04/2017 10:30 AM 12:30 PM Occult Blood Source Stool Stool Stool Occult Blood Diagnostic Positive (A) Negative Negative ? Component Latest Ref Rng ANDamp; Units 10/30/2017 Albumin 3.9 - 4.9 g/dL 3.6 (L) Bilirubin, Total 0.2 - 1.3 mg/dL 0.7 Bilirubin, Conjug ANDlt;0.2 mg/dL 0.2 (H) Alkaline Phosphatase 36 - 108 U/L 47 AST 14 - 40 U/L 32 ALT 10 - 54 U/L 16 Protein, Total 6.3 - 8.0 g/dL 7.8 Iron 41 - 186 ug/dL 207 (H) TIBC 232 - 386 ug/dL 395 (H) Transferrin Saturation 15 - 57 % 52 Retic % 0.4 - 2.0 % 4.9 (H) Abs Retic 0.0180 - 0.1000 M/uL 0.102 (H) HIV 12 Combo (Ag/Ab) Non Reactive Non Reactive Ferritin 30.3 - 565.7 ng/mL 66.4 LD 135 - 225 U/L 172 Haptoglobin 31 - 238 mg/dL 105 Hep C Antibody IA Negative Negative IMAGING: liver spleen scan: No evidence for splenomegaly. ?No focal hepatic abnormality. ?Colloid shift noted consistent with cirrhosis. 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 epigastric pain, nausea and heme-positive stool- need further immediate evaluation. PLAN: - refer to Dr. Jones for upper endoscopy -SAMUEL - continue iron and multivitamin replacement therapy - Start Aranesp 60mcg sq every 14 days for anemia secondary to chronic renal failure. Maintain hemoglobin about 10 gm/dl and avoid blood transfusion - Monitor HANDamp;H every 2 weeks x 6 - Repeat CBC, CMP, iron study OV in 3 months. I spent 25 minutes in the visit, with more than 50% of the total [id number] time of the visit in counseling / coordination of care. Side effects and benefits of Aranesp were discussed with the patient and family. The patient and family were allowed enough time to ask questions. All questions were answered to their satisfaction. Patient and family verbalized understanding of treatment plan and agreed to proceed with therapy. Deion Pardo MD Cc: Dr. Jocelyn Zuñiga LPN, LPN 11/11/2017 12:57 PM Signed aranesp injection administered, left arm tolerated well, no immediate adverse reactions noted. Lisa Zuñiga LPN Referring Provider: DEION PARDO [[id number]] Allergies As of Date: 11/11/2017 (No Known Allergies) Date Reviewed: 11/11/2017 Reviewed by: Lisa Leavitt ([place]) SEKOU Zuñiga - Fully Assessed Reason for Visit: Established Patient [175] Primary Visit Diagnosis:Cirrhosis 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 ascites, unspecified hepatic cirrhosis type (HCC) [K74.60] Other Visit Diagnoses:Thrombocytopenia (HCC) [D69.6] Gastroesophageal reflux disease, esophagitis presence not specified [K21.9] Uncontrolled type 2 diabetes mellitus with stage 3 chronic kidney disease, with long- term current use of insulin (HCC) [E11.22, E11.65, N18.3, Z79.4] Anemia, chronic renal failure, stage 3 (moderate) [N18.3, D63.1] Anemia of chronic illness [D63.8] Order(s):NaCl 0.9% iv infusionDisp: Rfl: diphenhydrAMINE 50 mg injection (BENADRYL)Disp: Rfl: hydrocortisone sodium succinate (PF) 100 mg injection (Solu-CORTEF)Disp: Rfl: EPINEPHrine 1 mg/mL (1 mL) 0.3 mg injectionDisp: Rfl: [] Darbepoetin Janene In Polysorbat 60 mcg injection (ARANESP)Disp: Rfl: CONSULT TO GASTROENTEROLOGY [[id number]] Order #: [id number]: 1 TREATMENT PARAMETERS [[id number]] Order #: [id number]: 1 HEMONC NURSING COMMUNICATION [[id number]] Order #: [id number]: 1 STANDING HEMONC NURSING COMMUNICATION [[id number]] Order #: [id number]: 1 STANDING Level of Service: EST PATIENT VISIT LEVEL 4 [[id number]] Disposition: Return in about 3 months (around 02/11/2018). Follow-up and Disposition History Recorded Prescriptions as of 11/11/2017 Sig: INSULIN ASPART U-100 100 UNI* Inject subcutaneously 12 unit* GLIPIZIDE 5 MG TABLET Take 1 tablet by mouth daily * LEVOTHYROXINE 25 MCG TABLET Take 1 tablet by mouth once d* SPIRONOLACTONE 50 MG TABLET Take 1 tablet by mouth once d* FERROUS SULFATE 325 MG (65 MG* Take 1 tablet by mouth daily * METOPROLOL TARTRATE 25 MG TAB* Take 1 tablet by mouth twice * SIMVASTATIN 20 MG TABLET Take 1 tablet by mouth once d* PANTOPRAZOLE 40 MG TABLET,DEL* Take 1 tablet by mouth once d* METAMUCIL ORAL Take by mouth once daily. LORATADINE 10 MG TABLET Take 10 mg by mouth once lilian* ASPIRIN 81 MG TABLET,DELAYED * Take 81 mg by mouth once lilian* DESOXIMETASONE 0.25 % TOPICAL* Apply thin layer twice daily INSULIN GLARGINE (U-100) 100 * Inject 25 Units subcutaneousl* LANCETS 28 GAUGE Test blood glucose 4 times da* BLOOD SUGAR DIAGNOSTIC STRIPS Test blood glucose 4 times da* PEN NEEDLE, DIABETIC 31 GAUGE* USE WITH INSULIN PENS 4 TIMES* FUROSEMIDE 40 MG TABLET Take 40 mg by mouth every oth* METHYLCELLULOSE (LAXATIVE) 50* Take 500 mg by mouth DAILY. MICONAZOLE NITRATE 2 % TOPICA* Apply 1 application to affect* MECLIZINE 25 MG TABLET Take 1 tablet by mouth three * LACTULOSE 10 GRAM/15 ML ORAL * Take 30 mL by mouth once lilian* RIFAXIMIN 550 MG TABLET Take 1 tablet by mouth twice * Problem List As Of Date 11/11/2017 Noted Resolved Viral gastroenteritis [A08.4] INVALID FOR*09/06/2014 Dehydration [E86.0] INVALID FOR*09/06/2014 Hypothyroidism [E03.9] GERD (gastroesophageal reflux disease) [K21.9] Renal disorder [N28.9] More... 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 History of colonic polyps [Z86.010] INVALID FOR* More... Morbid obesity (HCC) [E66.01] INVALID FOR* Anemia, chronic renal failure, stage 3 (moderat*INVALID FOR* Visit Notes: >> Lisa Leavitt (Lead Manufacturing Technician) SEKOU Zuñiga FriNov 11, 2017 12:03 PM Status: Signed Est pt, discuss recent lab results, 2 week f/u Lisa Zuñiga LPN >> Lisa Leavitt (Lead Manufacturing Technician) SEKOU Zuñiga FriNov 11, 2017 12:57 PM Status: Signed aranesp injection administered, left arm tolerated well, no immediate adverse reactions noted. Lisa Zuñiga LPN Encounter Status:Closed by DEION PARDO MD on 11/12/17 RENITA ABS GR + CBC Collected: 11/11/2017 Status: F Source: [place] 11:45 AM [facility] REPOSITORY TYPE CODE TESTS RESULT OUT OF REFERENCE UNITS RANGE LAB WWBC 3.70-11.00 k/uL [place] WBC 8.36 LAB WRBC 4.20-6.00 m/uL Low [place] RBC 2.27 LAB WHGB 13.0-17.0 g/dL Low [place] Hemoglobin 7.8 LAB WHCT 39.0-51.0 % Low [place] Hematocrit 25.4 LAB WMCV 80.0-100.0 fL [place] High MCV 111.9 Result Comment: Reviewed LAB WMCH 26.0-34.0 pg High [place] MCH 34.4 LAB WMCHC 30.5-36.0 g/dL [place] MCHC 30.7 LAB WRDW 11.5-15.0 % High [place] RDW 17.8 LAB WPLT 150-400 k/uL Low [place] 115 Platelet Cnt LAB WMPV 9.0-12.7 fL [place] MPV 12.4 Result Comment: Test performed at: [facility], [address] [place] [address]. LAB ABGRAN 1.45-7.50 k/uL Absol Gran 5.41 Count Performed By: #### WAGCBC #### [facility] [address] [place], [place] [address] BASIC METABOLIC Collected: 11/11/2017 Status: F Source: [place] [facility] ([facility]) 11:24 AM [facility] REPOSITORY TYPE CODE TESTS RESULT OUT OF RANGE REFERENCE UNITS LAB L501.0100 74-106 mg/dL High GLU 111 Result Comment: Fasting Glucose result from 100 to 125 mg/dL suggests IMPAIRED HOMEOSTASIS per A.D.A. criteria. Please note revised GLUCOSE reference range effective 2017. LAB L501.1000 7-18 mg/dL High BUN 48 LAB L501.1100 0.70-1.30 mg/dL High CREAT,SERUM 2.06 Result Comment: The validity of the calculated GFR AND GFRAA in patients over 70 years has not been determined. Clinical correlation is essential. LAB L501.1110 >60 mL/min Low EST GFR 33 Result Comment: Non- GFR Calc LAB L501.1115 >60 mL/min Low EST GFR - AA 40 Result Comment: GFR Calc LAB L501.1300 10-20 RATIO High BUN/CRE 23.3 LAB L501.2200 8.5-10.1 mg/dL CA Normal 8.9 LAB L501.5300 136-145 mmol/L NA Normal 136 LAB L501.5600 3.5-5.1 mmol/L K Normal 4.5 LAB L501.5900 98-107 mmol/L CL Normal 101 LAB L501.6100 21.0-32.0 mmol/L Normal CO2 26.0 LAB L501.6200 5-15 Normal GAP 9 Performed By: #### L500.2500 #### [facility] [address] [place], [address] PROGRESS Observed: 11/11/2017 Status: COMPLETED Source: [place] 9:43 AM [facility] [place] REPOSITORY O ID: [id number] Author: Magdiel Lee Service: (none) Author Type: Physician Type: Progress Notes Filed: 11/11/2017 10:11 AM Note Text: ENDOCRINOLOGY SUBSPECIALTY FOLLOW UP Last seen 05-06-2017 CC: Diabetes 77 year old morbidly obese male who first presented in follow up 07-23-2016 for T2DM that historically has been poorly controlled for at least the last year. - his daughter does the blood sugar testing but she is working two jobs and is also in school -- can not always be there; he does not have home health at this point in time . - the pt has poor manual dexterity and can give his own shots but does not test his blood sugars - daughter presents with blood sugar logs tho with scant testing before meals - the patient uses insulin pens but does not always change out the needle during the day -- he was counseled on same today ALSO PLEASE SEE PREVIOUS ENCOUNTERS IN THIS EMR . . . FOLLOW UP VISIT 11-26-2016: Pt was ill last Friday had persistently elevated blood sugars and was hospitalized for a couple of days. Discharge instructions only available; no hospital records from [facility]. Pt is not a historian, the daughter denies any other dx other than elevated blood sugars for the admission - Dx is unknown. BS remain elevated at home despite increased insulin dosages adjusted at the hospital Apparently he was also in need of diuresis and has a kidney stone that they are watching per the daughter's statement later into today's visit FOLLOW UP VISIT 05-06-2017: Labs requested from PCP's office -- latest A1c elevated with interval worsening. Notes morning sugars are ok but not so much later in the day. Wt ess stable; no other acute issues to report FOLLOW UP VISIT 11-11-2017: Took a hard fall in September - on a heart monitor at this point and is being worked up for anemia, renal, and cardiology issues per his daughter. He is severely anemic and being worked up for a bleed of unknown origin SMBG Freestyle meter FBS 122 - 138 NOON 146 - 223 DINNER 162 - [address]: 176 per routine home testing REVIEW OF SYSTEMS GENERAL: Wt ess stable HEENT: up to date with eye exam, sclerosis was noted per the daughter NECK neg RESPIRATORY: dry cough CARDIOVASCULAR: murmur; denies other issues GI: denies : history of renal stones -- sees a renal specialist - has a stone currently, one episode of pain recently MUSCULOSKELETAL: back is bothering him SKIN: neg PSYCH: denies NEURO: decreased sensation in his feet - sees podiatry and special shoes are on order Remainder of ROS is negative MEDS Current Outpatient Prescriptions on File Prior to Visit: insulin glargine (LANTUS) 100 unit/mL (3 mL) inpn Inject 30 Units subcutaneously daily at bedtime. Insulin Lispro, Human, (HUMALOG KWIKPEN) 100 unit/mL inpn 12 units with breakfast, 15 u with lunch and dinner pantoprazole DR (PROTONIX) 40 mg tablet Take 1 tablet by mouth once daily. 30 minutes before eating. glipiZIDE (GLUCOTROL) 5 mg tablet Take 1 tablet by mouth daily before breakfast. spironolactone (ALDACTONE) 50 mg tablet Take 2 tablets by mouth once daily. Levothyroxine 25 mcg cap Take 1 tablet by mouth once daily. simvastatin (ZOCOR) 20 mg tablet Take 1 tablet by mouth once daily. metoprolol tartrate, short acting, (LOPRESSOR) 25 mg tablet Take 1 tablet by mouth twice daily. furosemide (LASIX) 40 mg tablet Take 40 mg by mouth every other day. blood sugar diagnostic (FREESTYLE TEST) test strip Test blood glucose 4 times daily lancets (FREESTYLE LANCETS) 28 gauge misc Test blood glucose 4 times daily Insulin [place], Disposable, (BD ULTRAFINE III MINI PEN) 31 gauge x 3/16 ndle USE WITH INSULIN PENS 4 TIMES DAILY Methylcellulose, Laxative, (FIBER THERAPY) 500 mg tab Take 500 mg by mouth DAILY. miconazole (LOTRIMIN AF, DESENEX) 2 % powder Apply 1 application to affected area twice daily. meclizine (ANTIVERT) 25 mg tab Take 1 tablet by mouth three times daily as needed. lactulose (ENULOSE) 10 gram/15 mL solution Take 30 mL by mouth once daily. rifaximin (XIFAXAN) 550 mg tab Take 1 tablet by mouth twice daily. No current facility-administered medications on file prior to visit. PAST MEDICAL HISTORY Diagnosis Date - BPH (benign prostatic hyperplasia) - Cirrhosis (HCC) fatty liver - GERD (gastroesophageal reflux disease) - Heart murmur per daughter - Hiatal hernia 07/25/15 - High cholesterol - Hypertension - Hypothyroidism - Mental disorder anxiety - Renal disorder HX kidney stones - Snoring - Stroke (HCC) daughter states minor strokes - Thrombocytopenia (HCC) - 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 PAST SURGICAL HISTORY Procedure Laterality Date - COLONOSCOP W/ OR W/O BRSH SPEC 06/02/2017 2 year repeat/hard IV stick - COLONOSCOPY 2013 - EGD 2013, 08/08 - EGD W/O OR W/BRUSH/WASH 06/02/2017 EGD - KIDNEY SURGERY HX - PAST SURGICAL HISTORY OF 2013 umbilical hernia repair - PAST SURGICAL HISTORY OF prostate biopsy Social History Marital status: Spouse name: Years of education: Number of children: 5 Social History Main Topics Smoking status: Former Smoker Packs/day: 0.00 Years: 10.00 Types: Cigars Quit date: 11/07/2002 Smokeless status: Never Used Alcohol use: No Drug use: No Sexual activity: Yes Partners with: Female FAMILY HISTORY Problem Relation Age of Onset - Heart Father MA - Prostate Cancer Father - Diabetes Mother - Breast Cancer Sister - Heart Brother - prescott [OTHER] Brother LABS - disregard the most recent A1c -- invalid in the presence of anemia Component Latest Ref Rng AND Units 10/10/2017 Glucose 212 BUN 31 Creatinine 1.5 MG/DL 1.84 (A) Calcium 8.0 Phosphate - Intl 3.1 Sodium 134 Potassium 4.4 Component Latest Ref Rng AND Units 10/30/2017 WBC, [place] 3.70 - 11.00 k/uL 6.40 RBC, [place] 4.20 - 6.00 m/uL 2.07 (L) Hemoglobin, [place] 13.0 - 17.0 g/dL 7.0 (L) Hematocrit, [place] 39.0 - 51.0 % 23.4 (L) MCV, [place] 80.0 - 100.0 fL 113.0 (H) MCH, [place] 26.0 - 34.0 pg 33.8 MCHC, [place] 30.5 - 36.0 g/dL 29.9 (L) RDW, [place] 11.5 - 15.0 % 17.6 (H) Platelet Cnt, [place] 150 - 400 k/uL 97 (L) MPV, [place] 9.0 - 12.7 fL 12.8 (H) Absol Gran Count 1.45 - 7.50 k/uL 3.97 Absolute nRBC <0.01 k/uL Preliminary result. Interpret with caution. Final results may vary. Results . . . A1c 03-25-2017: 8.7 with interval worsening A1c 11-05-2016: 7.3 Component Latest Ref Rng AND Units 07/23/2016 07/27/2016 Protein, Total 6.3 - 8.0 g/dL 8.5 (H) Albumin 3.9 - 4.9 g/dL 3.8 (L) Calcium 8.6 - 10.0 mg/dL 8.6 Bilirubin, Total 0.2 - 1.3 mg/dL 0.9 Alkaline Phosphatase 36 - 108 U/L 43 AST 14 - 40 U/L 43 (H) Glucose 74 - 99 mg/dL 115 (H) BUN 9 - 24 mg/dL 35 (H) Creatinine 0.73 - 1.22 mg/dL 1.69 (H) Sodium 136 - 144 mmol/L 139 Potassium 3.7 - 5.1 mmol/L 4.6 Chloride 97 - 105 mmol/L 100 CO2 22 - 30 mmol/L 23 Anion Gap 9 - 18 mmol/L 16 ALT 10 - 54 U/L 32 eGFR- 48 eGFR-All Other Races . 40 Triglyceride 30 - 149 mg/dL 72 Cholesterol 100 - 199 mg/dL 102 HDL Cholesterol >45 mg/dL 34 (L) VLDL Cholesterol 6 - 40 mg/dL 14 LDL Cholesterol 60 - 129 mg/dL 54 (L) Fasting Time hrs 12 TC:HDL Ratio 1.00 - 5.00 3.00 LDL:HDL Ratio 0.50 - 3.55 1.59 Non HDL Cholesterol 90 - 159 mg/dL 68 (L) Protein, Urine Random 0 - 20 mg/dL 12 Creatinine, Ur Random (UCRR) 20 - 300 mg/dL 122.5 Protein/Creat Ratio <0.2 0.1 Hemoglobin A1C 4 - 6 % 7.7 (A) Quality Check yes/no Yes TSH 0.400 - 5.500 uU/mL 4.160 Free T4 0.9 - 1.7 ng/dL 1.0 Component Latest Ref Rng 05/17/2015 08/17/2015 11/17/2015 02/09/2016 Hemoglobin A1C 4.3 - 5.6 % 7.1 (H) 7.2 (H) 10.1 (H) 8.6 (H) Estimated Average Glucose 157 160 >240 200 PHYSICAL EXAMINATION: General appearance: morbidly obese, clean, smiling, leach is trimmed, he is wearing clean clothing Skin: dry Head: normal Eyes: Anicteric sclera. Pupils are equally round and reactive to light. Extraocular movements are intact. Neck: Supple, no adenopathy; thyroid symmetric, normal size, no bruits Lungs: lungs clear to auscultation Heart: holosystolic blowing murmur Extremities: edema bilat LE, Good capillary refill. Musculoskeletal: Spine range of motion normal. Muscular strength: proximal weakness with difficulty arising from the exam room chair; now amb with a cane Peripheral pulses: Normal ASSESSMENT/PLAN: 1. Uncontrolled type 2 diabetes mellitus with complication, with long-term current use of insulin (HCC) - ICD9: 250.82, V58.67, ICD10: E11.8, E11.65, Z79.4 (primary diagnosis) - is doing better overall - and his daughter is now working as an [employer] and can spend more time with him - interval improvement noted tho pre-dinner bs are still significantly elevated - Lantus 25 twice daily - morning and evening - Humalog plus 2 u per 50 > 150 -- Daughter to check the fruit parfaits added in between lunch and dinner - re Rx for glipizide with counseling to continue to monitor for LBS 2. HTN - controlled and at goal of < 140/90 - three-drug therapy 3. HPL - controlled and at goal of LDL < 100 - statin and asa 4. Hypothyroid - clinically euthyroid at today's exam - continues to follow with PCP Follow up in 3 months Patient is to continue to follow up with his PCP and with other consultants regarding his other medical problems. The patient has my card, and knows how to reach my office. I thank you for the opportunity to participate in the continued care of Hang Meza. Please do not hesitate to contact me if you have further concerns or questions. Magdiel Lee, MS, RD, MD, CCD, FACN, FACP, FACE Diplomate, [place] [employer] Diplomate, National Board of [employer]ician [employer] Specialists Endocrinology / / [facility] [id number] CNOV Observed: 11/11/2017 Status: COMPLETED Source: [place] 9:25 AM [facility] REPOSITORY Office Visit (BRIAN) HANG MEZA ([id number]) 1940 M Date Time Provider Department 11/11/17 9:25 AM MAGDIEL LEE During your visit today, we recorded the following information about you: Pulse Blood pressure Weight Height 72/minute 119/59 129.3 kg 1.73 m Magdiel Lee MD 11/11/2017 10:11 AM Signed ENDOCRINOLOGY SUBSPECIALTY FOLLOW UP Last seen 05-06-2017 CC: Diabetes 77 year old morbidly obese male who first presented in follow up 07-23-2016 for T2DM that historically has been poorly controlled for at least the last year. - his daughter does the blood sugar testing but she is working two jobs and is also in school -- can not always be there; he does not have home health at this point in time . - the pt has poor manual dexterity and can give his own shots but does not test his blood sugars - daughter presents with blood sugar logs tho with scant testing before meals - the patient uses insulin pens but does not always change out the needle during the day -- he was counseled on same today ALSO PLEASE SEE PREVIOUS ENCOUNTERS IN THIS EMR . . . FOLLOW UP VISIT 11-26-2016: Pt was ill last Friday had persistently elevated blood sugars and was hospitalized for a couple of days. Discharge instructions only available; no hospital records from [facility]. Pt is not a historian, the daughter denies any other dx other than elevated blood sugars for the admission - Dx is unknown. BS remain elevated at home despite increased insulin dosages adjusted at the hospital Apparently he was also in need of diuresis and has a kidney stone that they are watching per the daughter's statement later into today's visit FOLLOW UP VISIT 05-06-2017: Labs requested from PCP's office -- latest A1c elevated with interval worsening. Notes morning sugars are ok but not so much later in the day. Wt ess stable; no other acute issues to report FOLLOW UP VISIT 11-11-2017: Took a hard fall in September - on a heart monitor at this point and is being worked up for anemia, renal, and cardiology issues per his daughter. He is severely anemic and being worked up for a bleed of unknown origin SMBG Freestyle meter FBS 122 - 138 NOON 146 - [address] 162 - [address]: 176 per routine home testing REVIEW OF SYSTEMS GENERAL: Wt ess stable HEENT: up to date with eye exam, sclerosis was noted per the daughter NECK neg RESPIRATORY: dry cough CARDIOVASCULAR: murmur; denies other issues GI: denies : history of renal stones -- sees a renal specialist - has a stone currently, one episode of pain recently MUSCULOSKELETAL: back is bothering him SKIN: neg PSYCH: denies NEURO: decreased sensation in his feet - sees podiatry and special shoes are on order Remainder of ROS is negative MEDS Current Outpatient Prescriptions on File Prior to Visit: insulin glargine (LANTUS) 100 unit/mL (3 mL) inpn Inject 30 Units subcutaneously daily at bedtime. Insulin Lispro, Human, (HUMALOG KWIKPEN) 100 unit/mL inpn 12 units with breakfast, 15 u with lunch and dinner pantoprazole DR (PROTONIX) 40 mg tablet Take 1 tablet by mouth once daily. 30 minutes before eating. glipiZIDE (GLUCOTROL) 5 mg tablet Take 1 tablet by mouth daily before breakfast. spironolactone (ALDACTONE) 50 mg tablet Take 2 tablets by mouth once daily. Levothyroxine 25 mcg cap Take 1 tablet by mouth once daily. simvastatin (ZOCOR) 20 mg tablet Take 1 tablet by mouth once daily. metoprolol tartrate, short acting, (LOPRESSOR) 25 mg tablet Take 1 tablet by mouth twice daily. furosemide (LASIX) 40 mg tablet Take 40 mg by mouth every other day. blood sugar diagnostic (FREESTYLE TEST) test strip Test blood glucose 4 times daily lancets (FREESTYLE LANCETS) 28 gauge misc Test blood glucose 4 times daily Insulin [place], Disposable, (BD ULTRAFINE III MINI PEN) 31 gauge x 3/16ANDquot; ndle USE WITH INSULIN PENS 4 TIMES DAILY Methylcellulose, Laxative, (FIBER THERAPY) 500 mg tab Take 500 mg by mouth DAILY. miconazole (LOTRIMIN AF, DESENEX) 2 % powder Apply 1 application to affected area twice daily. meclizine (ANTIVERT) 25 mg tab Take 1 tablet by mouth three times daily as needed. lactulose (ENULOSE) 10 gram/15 mL solution Take 30 mL by mouth once daily. rifaximin (XIFAXAN) 550 mg tab Take 1 tablet by mouth twice daily. No current facility-administered medications on file prior to visit. 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 PAST SURGICAL HISTORY Procedure Laterality Date - COLONOSCOP W/ OR W/O BRSH SPEC 06/02/2017 2 year repeat/hard IV stick - COLONOSCOPY 2013 - EGD 2013, 08/08 - EGD W/O OR W/BRUSH/WASH 06/02/2017 EGD - KIDNEY SURGERY HX - PAST SURGICAL HISTORY OF 2013 umbilical hernia repair - PAST SURGICAL HISTORY OF prostate biopsy Social History Marital status: Spouse name: Years of education: Number of children: 5 Social History Main Topics Smoking status: Former Smoker Packs/day: 0.00 Years: 10.00 Types: Cigars Quit date: 11/07/2002 Smokeless status: Never Used Alcohol use: No Drug use: No Sexual activity: Yes Partners with: Female FAMILY HISTORY Problem Relation Age of Onset - Heart Father MA - Prostate Cancer Father - Diabetes Mother - Breast Cancer Sister - Heart Brother - prescott [OTHER] Brother LABS - disregard the most recent A1c -- invalid in the presence of anemia Component Latest Ref Rng ANDamp; Units 10/10/2017 Glucose 212 BUN 31 Creatinine 1.5 MG/DL 1.84 (A) Calcium 8.0 Phosphate - Intl 3.1 Sodium 134 Potassium 4.4 Component Latest Ref Rng ANDamp; Units 10/30/2017 WBC, [place] 3.70 - 11.00 k/uL 6.40 RBC, [place] 4.20 - 6.00 m/uL 2.07 (L) Hemoglobin, [place] 13.0 - 17.0 g/dL 7.0 (L) Hematocrit, [place] 39.0 - 51.0 % 23.4 (L) MCV, [place] 80.0 - 100.0 fL 113.0 (H) MCH, [place] 26.0 - 34.0 pg 33.8 MCHC, [place] 30.5 - 36.0 g/dL 29.9 (L) RDW, [place] 11.5 - 15.0 % 17.6 (H) Platelet Cnt, [place] 150 - 400 k/uL 97 (L) MPV, [place] 9.0 - 12.7 fL 12.8 (H) Absol Gran Count 1.45 - 7.50 k/uL 3.97 Absolute nRBC ANDlt;0.01 k/uL Preliminary result. Interpret with caution. Final results may vary. Results . . . A1c 03-25-2017: 8.7 with interval worsening A1c 11-05-2016: 7.3 Component Latest Ref Rng ANDamp; Units 07/23/2016 07/27/2016 Protein, Total 6.3 - 8.0 g/dL 8.5 (H) Albumin 3.9 - 4.9 g/dL 3.8 (L) Calcium 8.6 - 10.0 mg/dL 8.6 Bilirubin, Total 0.2 - 1.3 mg/dL 0.9 Alkaline Phosphatase 36 - 108 U/L 43 AST 14 - 40 U/L 43 (H) Glucose 74 - 99 mg/dL 115 (H) BUN 9 - 24 mg/dL 35 (H) Creatinine 0.73 - 1.22 mg/dL 1.69 (H) Sodium 136 - 144 mmol/L 139 Potassium 3.7 - 5.1 mmol/L 4.6 Chloride 97 - 105 mmol/L 100 CO2 22 - 30 mmol/L 23 Anion Gap 9 - 18 mmol/L 16 ALT 10 - 54 U/L 32 eGFR- 48 eGFR-All Other Races . 40 Triglyceride 30 - 149 mg/dL 72 Cholesterol 100 - 199 mg/dL 102 HDL Cholesterol ANDgt;45 mg/dL 34 (L) VLDL Cholesterol 6 - 40 mg/dL 14 LDL Cholesterol 60 - 129 mg/dL 54 (L) Fasting Time hrs 12 TC:HDL Ratio 1.00 - 5.00 3.00 LDL:HDL Ratio 0.50 - 3.55 1.59 Non HDL Cholesterol 90 - 159 mg/dL 68 (L) Protein, Urine Random 0 - 20 mg/dL 12 Creatinine, Ur Random (UCRR) 20 - 300 mg/dL 122.5 Protein/Creat Ratio ANDlt;0.2 0.1 Hemoglobin A1C 4 - 6 % 7.7 (A) Quality Check yes/no Yes TSH 0.400 - 5.500 uU/mL 4.160 Free T4 0.9 - 1.7 ng/dL 1.0 Component Latest Ref Rng 05/17/2015 08/17/2015 11/17/2015 02/09/2016 Hemoglobin A1C 4.3 - 5.6 % 7.1 (H) 7.2 (H) 10.1 (H) 8.6 (H) Estimated Average Glucose 157 160 ANDgt;240 200 PHYSICAL EXAMINATION: General appearance: morbidly obese, clean, smiling, leach is trimmed, he is wearing clean clothing Skin: dry Head: normal Eyes: Anicteric sclera. Pupils are equally round and reactive to light. Extraocular movements are intact. Neck: Supple, no adenopathy; thyroid symmetric, normal size, no bruits Lungs: lungs clear to auscultation Heart: holosystolic blowing murmur Extremities: edema bilat LE, Good capillary refill. Musculoskeletal: Spine range of motion normal. Muscular strength: proximal weakness with difficulty arising from the exam room chair; now amb with a cane Peripheral pulses: Normal ASSESSMENT/PLAN: 1. Uncontrolled type 2 diabetes mellitus with complication, with long-term current use of insulin ([facility]) - ICD9: 250.82, V58.67, ICD10: E11.8, E11.65, Z79.4 (primary diagnosis) - is doing better overall - and his daughter is now working as an [employer] ENGINEER and can spend more time with him - interval improvement noted tho pre-dinner bs are still significantly elevated - Lantus 25 twice daily - morning and evening - Humalog plus 2 u per 50 ANDgt; 150 -- Daughter to check the fruit parfaits added in between lunch and dinner - re Rx for glipizide with counseling to continue to monitor for LBS 2. HTN - controlled and at goal of ANDlt; 140/90 - three-drug therapy 3. HPL - controlled and at goal of LDL ANDlt; 100 - statin and asa 4. Hypothyroid - clinically euthyroid at today's exam - continues to follow with PCP Follow up in 3 months Patient is to continue to follow up with his PCP and with other consultants regarding his other medical problems. The patient has my card, and knows how to reach my office. I thank you for the opportunity to participate in the continued care of Hang Meza. Please do not hesitate to contact me if you have further concerns or questions. Magdiel Lee, MS, RD, MD, CCD, FACN, FACP, FACE Diplomate, [place] Board [employer] Obesity Medicine Diplomate, National Board of Physician Nutrition Specialists Endocrinology / / [facility] [id number] Referring Provider: MAGDIEL LEE [[id number]] Allergies As of Date: 11/11/2017 (No Known Allergies) Date Reviewed: 11/11/2017 Reviewed by: Magdiel Lee - Fully Assessed Reason for Visit: Diabetes [34] Primary Visit Diagnosis:Uncontrolled type 2 diabetes mellitus with stage 3 chronic kidney disease, with long- term current use of insulin (HCC) [E11.22, E11.65, N18.3, Z79.4] Other Visit Diagnoses:Mixed hyperlipidemia [E78.2] Essential hypertension [I10] Acquired hypothyroidism [E03.9] Morbid obesity (HCC) [E66.01] Uncontrolled type 2 diabetes mellitus without complication, with long-term current use of insulin (HCC) [E11.65, Z79.4] Order(s):insulin aspart U-100 (NOVOLOG FLEXPEN U-100 INSULIN) 100 unit/mL inpnInject subcutaneously 12 units with breakfast, 22 units with lunch, 15 units with dinner. Plus SSi 2 units per 50 >150. TDD 75 units.E11.22Disp: 10 PenRfl: 11 glipiZIDE (GLUCOTROL) 5 mg tabletTake 1 tablet by mouth daily before breakfast.Disp: 90 tabletRfl: 3 Prescriptions as of 11/11/2017 Sig: INSULIN ASPART U-100 100 UNI* Inject subcutaneously 12 unit* GLIPIZIDE 5 MG TABLET Take 1 tablet by mouth daily * LEVOTHYROXINE 25 MCG TABLET Take 1 tablet by mouth once d* SPIRONOLACTONE 50 MG TABLET Take 1 tablet by mouth once d* FERROUS SULFATE 325 MG (65 MG* Take 1 tablet by mouth daily * METOPROLOL TARTRATE 25 MG TAB* Take 1 tablet by mouth twice * SIMVASTATIN 20 MG TABLET Take 1 tablet by mouth once d* PANTOPRAZOLE 40 MG TABLET,DEL* Take 1 tablet by mouth once d* METAMUCIL ORAL Take by mouth once daily. LORATADINE 10 MG TABLET Take 10 mg by mouth once lilian* ASPIRIN 81 MG TABLET,DELAYED * Take 81 mg by mouth once lilian* DESOXIMETASONE 0.25 % TOPICAL* Apply thin layer twice daily INSULIN GLARGINE (U-100) 100 * Inject 25 Units subcutaneousl* LANCETS 28 GAUGE Test blood glucose 4 times da* BLOOD SUGAR DIAGNOSTIC STRIPS Test blood glucose 4 times da* PEN NEEDLE, DIABETIC 31 GAUGE* USE WITH INSULIN PENS 4 TIMES* FUROSEMIDE 40 MG TABLET Take 40 mg by mouth every oth* METHYLCELLULOSE (LAXATIVE) 50* Take 500 mg by mouth DAILY. MICONAZOLE NITRATE 2 % TOPICA* Apply 1 application to affect* MECLIZINE 25 MG TABLET Take 1 tablet by mouth three * LACTULOSE 10 GRAM/15 ML ORAL * Take 30 mL by mouth once lilian* RIFAXIMIN 550 MG TABLET Take 1 tablet by mouth twice * Problem List As Of Date 11/11/2017 Noted Resolved Viral gastroenteritis [A08.4] INVALID FOR*09/06/2014 Dehydration [E86.0] INVALID FOR*09/06/2014 Hypothyroidism [E03.9] GERD (gastroesophageal reflux disease) [K21.9] Renal disorder [N28.9] More... 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 History of colonic polyps [Z86.010] INVALID FOR* More... Morbid obesity (HCC) [E66.01] INVALID FOR* Prescriptions ordered this encounter Disp Refills Start End INSULIN ASPART U-100 100 UNIT/ML JAIMES* 10 P* 11 11/11/2017 Class: Med Update Sig: Inject subcutaneously 12 units with breakfast, 22 units with lunch, 15 units with dinner. Plus SSi 2 units per 50 >150. TDD 75 units.E11.22 GLIPIZIDE 5 MG TABLET 90 t* 3 11/11/2017 Route: ORAL Sig: Take 1 tablet by mouth daily before breakfast. Medications Discontinued During This Encounter insulin aspart (NOVOLOG FLEXPEN) 100* 10 P* 11 05/16/2017 11/11/2017 Cmt: Dispense 10 pens (2 boxes) every 30 days. Formulary switch from Humalog to Novolog per insurance. Sig: Inject subcutaneously 12 units with breakfast, 18 units with lunch, 15 units with dinner. Plus SSi 2 units per 50 >150. TDD 75 units.E11.22 Disc: Reason for discontinue is not on file. glipiZIDE (GLUCOTROL) 5 mg tablet 90 t* 3 01/07/2017 11/11/2017 Route: ORAL Sig: Take 1 tablet by mouth daily before breakfast. Disc: Reason for discontinue is not on file. Disposition: Return in about 3 months (around 02/11/2018) for diabetes . Follow-up and Disposition History Recorded Encounter Status:Closed by MAGDIEL LEE MD on 11/11/17 CNSW Observed: 11/11/2017 Status: COMPLETED Source: [place] 12:00 AM [facility] REPOSITORY Social Work (ALBERT) HANG MEZA ([id number]) 1940 M Date Time Provider Department 11/11/17 ELISE REID) ALBERT During your visit today, we recorded the following information about you: [place] Milian 11/11/2017 1:16 PM Signed Sensitive Note SOCIAL WORK DISTRESS ASSESSMENT Referral made due to:Moderate distress Contact was made: [facility]w-[facility] Problems Addressed: Practical: N/A Family: N/A Emotional: N/A Spiritual Concerns: N/A Physical Problems: Breathing, Constipation, Indigestion, Pain, Skin dry/itchy and Tingling in hands/feet Exercising: N/A Stress Management: No Is the patient's distress related to a change in quality of life? No Patient with current Suicidal Ideation: No MENTAL HEALTH HISTORY: No Substance Use and Treatment History: denied History of Abuse: denied History of combat/trauma: No INTERVENTION/PLAN: Monitor patient response to treatment Communicate pertinent medical/psychosocial information to [facility] team Provide emotional support to patient/family Provided education on distress and screening process Continue follow up as needed Resources and Referrals: ? Internal: Support Group ? External: N/A Follow up appointment with EMMIE in: [place] met with patient and his daughter to discuss distress per KP tablet. Patient reports he recently fell, which resulted in him injuring his shoulder, knee and getting a concussion. Patient is linked with [employer] and has Are You a Human/Are You a Human coverage. Patient reports great support system and his daughter lives with him to help out. Patient's daughter is very involved with his care and also has a hearing care practitioner through his insurance that helps. Patient denies any needs at this time and seems to be in good spirits. Patient's daughter is agreeable to calling if any needs arise. [place] Milian Allergies As of Date: 11/11/2017 (No Known Allergies) Date Reviewed: 11/11/2017 Reviewed by: Lisa Leavitt (Lead Manufacturing Technician) SEKOU Zuñiga - Fully Assessed Reason for Visit: Social Work Services [507] Cmt: distress assessment Prescriptions as of 11/11/2017 Sig: INSULIN ASPART U-100 100 UNI* Inject subcutaneously 12 unit* GLIPIZIDE 5 MG TABLET Take 1 tablet by mouth daily * LEVOTHYROXINE 25 MCG TABLET Take 1 tablet by mouth once d* SPIRONOLACTONE 50 MG TABLET Take 1 tablet by mouth once d* FERROUS SULFATE 325 MG (65 MG* Take 1 tablet by mouth daily * METOPROLOL TARTRATE 25 MG TAB* Take 1 tablet by mouth twice * SIMVASTATIN 20 MG TABLET Take 1 tablet by mouth once d* PANTOPRAZOLE 40 MG TABLET,DEL* Take 1 tablet by mouth once d* METAMUCIL ORAL Take by mouth once daily. LORATADINE 10 MG TABLET Take 10 mg by mouth once lilian* ASPIRIN 81 MG TABLET,DELAYED * Take 81 mg by mouth once lilian* DESOXIMETASONE 0.25 % TOPICAL* Apply thin layer twice daily INSULIN GLARGINE (U-100) 100 * Inject 25 Units subcutaneousl* LANCETS 28 GAUGE Test blood glucose 4 times da* BLOOD SUGAR DIAGNOSTIC STRIPS Test blood glucose 4 times da* PEN NEEDLE, DIABETIC 31 GAUGE* USE WITH INSULIN PENS 4 TIMES* FUROSEMIDE 40 MG TABLET Take 40 mg by mouth every oth* METHYLCELLULOSE (LAXATIVE) 50* Take 500 mg by mouth DAILY. MICONAZOLE NITRATE 2 % TOPICA* Apply 1 application to affect* MECLIZINE 25 MG TABLET Take 1 tablet by mouth three * LACTULOSE 10 GRAM/15 ML ORAL * Take 30 mL by mouth once lilian* RIFAXIMIN 550 MG TABLET Take 1 tablet by mouth twice * Problem List As Of Date 11/11/2017 Noted Resolved Viral gastroenteritis [A08.4] INVALID FOR*09/06/2014 Dehydration [E86.0] INVALID FOR*09/06/2014 Hypothyroidism [E03.9] GERD (gastroesophageal reflux disease) [K21.9] Renal disorder [N28.9] More... 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 History of colonic polyps [Z86.010] INVALID FOR* More... Morbid obesity (HCC) [E66.01] INVALID FOR* Anemia, chronic renal failure, stage 3 (moderat*INVALID FOR* Encounter Status:Closed by ELISE REID on 11/11/17 BLADE Observed: 11/11/2017 Status: COMPLETED Source: [place] 12:00 AM [facility] REPOSITORY Telephone (GASTTW) HANG MEZA ([id number]) 1940 M Date Time Provider Department 11/11/17 DERRICK JONES During your visit today, we recorded the following information about you: Derrick Jones MD 11/11/2017 1:[address] Pardo would like this patient to get an EGD as soon as possible. Can we get on my schedule? Nik Lee RN APRN.WELLINGTON ARNOLD 11/11/2017 1:58 PM Signed November 24. I contacted Dr. Jones to confirm that he will do the HANDamp;P that morning, reviewing Dr. Pardo's office note from today. Order placed by Dr. Jones. DX: cirrhosis with ascites 2)nausea and vomiting 3)anemia Nathalia, please contact the patient with instructions and drop a copy in the mail. See if the patient feels comfortable adjusting his insulin accordingly. Tell the halver machine operator we need to make him one of the first in the morning. Nik Lee RN APRN.CATALINA De Jesus 11/11/2017 2:19 PM Signed Patient has been scheduled to be the first procedure on November 24 Elise Theodore MA 11/11/2017 4:28 PM Signed Called patient and left a VM with directions and also sent them in the mail Instructed patient to call in if he had any further questions about the procedure. Nathalia Theodore MA Allergies As of Date: 11/11/2017 (No Known Allergies) Date Reviewed: 11/11/2017 Reviewed by: Lisa Leavitt (Sekou) SEKOU Zuñiga - Fully Assessed Reason for Visit: Schedule Surgery [1330] Primary Visit Diagnosis:Cirrhosis 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 ascites, unspecified hepatic cirrhosis type (HCC) [K74.60] Order(s):EGD [[id number]] Order #: [id number] FUTURE Prescriptions as of 11/11/2017 Sig: INSULIN ASPART U-100 100 UNI* Inject subcutaneously 12 unit* GLIPIZIDE 5 MG TABLET Take 1 tablet by mouth daily * LEVOTHYROXINE 25 MCG TABLET Take 1 tablet by mouth once d* SPIRONOLACTONE 50 MG TABLET Take 1 tablet by mouth once d* FERROUS SULFATE 325 MG (65 MG* Take 1 tablet by mouth daily * METOPROLOL TARTRATE 25 MG TAB* Take 1 tablet by mouth twice * SIMVASTATIN 20 MG TABLET Take 1 tablet by mouth once d* PANTOPRAZOLE 40 MG TABLET,DEL* Take 1 tablet by mouth once d* METAMUCIL ORAL Take by mouth once daily. LORATADINE 10 MG TABLET Take 10 mg by mouth once lilian* ASPIRIN 81 MG TABLET,DELAYED * Take 81 mg by mouth once lilian* DESOXIMETASONE 0.25 % TOPICAL* Apply thin layer twice daily INSULIN GLARGINE (U-100) 100 * Inject 25 Units subcutaneousl* LANCETS 28 GAUGE Test blood glucose 4 times da* BLOOD SUGAR DIAGNOSTIC STRIPS Test blood glucose 4 times da* PEN NEEDLE, DIABETIC 31 GAUGE* USE WITH INSULIN PENS 4 TIMES* FUROSEMIDE 40 MG TABLET Take 40 mg by mouth every oth* METHYLCELLULOSE (LAXATIVE) 50* Take 500 mg by mouth DAILY. MICONAZOLE NITRATE 2 % TOPICA* Apply 1 application to affect* MECLIZINE 25 MG TABLET Take 1 tablet by mouth three * LACTULOSE 10 GRAM/15 ML ORAL * Take 30 mL by mouth once lilian* RIFAXIMIN 550 MG TABLET Take 1 tablet by mouth twice * Problem List As Of Date 11/11/2017 Noted Resolved Viral gastroenteritis [A08.4] INVALID FOR*09/06/2014 Dehydration [E86.0] INVALID FOR*09/06/2014 Hypothyroidism [E03.9] GERD (gastroesophageal reflux disease) [K21.9] Renal disorder [N28.9] More... 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 History of colonic polyps [Z86.010] INVALID FOR* More... Morbid obesity (HCC) [E66.01] INVALID FOR* Anemia, chronic renal failure, stage 3 (moderat*INVALID FOR* Encounter Status:Closed by DERRICK JONES MD on 11/11/17 HOSP Observed: 11/11/2017 Status: COMPLETED Source: [place] 12:00 AM [facility] [place] REPOSITORY Patient:Hang Meza MRN: <[id number]> Height:5' 8.11(1.73 m) Weight:285 lb 15 oz (129.7 kg) Outpatient Medications as of 11/24/17: insulin lispro (HUMALOG KWIKPEN) 100 unit/mL pen ferrous sulfate 325 mg (65 mg iron) tablet glipiZIDE (GLUCOTROL) 5 mg tablet levothyroxine (SYNTHROID) 25 mcg tablet spironolactone (ALDACTONE) 50 mg tablet metoprolol tartrate, short acting, (LOPRESSOR) 25 mg tablet simvastatin (ZOCOR) [address] (PROTONIX) 40 mg tablet PSYLLIUM HUSK (METAMUCIL ORAL) loratadine (CLARITIN) 10 mg tablet aspirin, enteric coated (ASPIRIN, ENTERIC COATED) 81 mg EC tablet desoximetasone (TOPICORT) 0.25 % cream insulin glargine (LANTUS) 100 unit/mL (3 mL) inpn lancets (FREESTYLE LANCETS) 28 gauge [facility] blood sugar diagnostic (FREESTYLE TEST) test strip Insulin [place], Disposable, (BD ULTRAFINE III MINI PEN) 31 gauge x 3/16 ndle furosemide (LASIX) 40 mg tablet Methylcellulose, Laxative, (FIBER THERAPY) 500 mg tab miconazole (LOTRIMIN AF, DESENEX) 2 % powder meclizine (ANTIVERT) 25 mg tab lactulose (ENULOSE) 10 gram/15 mL solution rifaximin (XIFAXAN) 550 mg tab Admission/Clinic Administered Medications as of 11/24/17: lactated ringers infusion Problem List: Hypothyroidism [E03.9] GERD (gastroesophageal reflux disease) [K21.9] Renal disorder [N28.9] BPH (benign prostatic hyperplasia) [N40.0] Thrombocytopenia (HCC) [D69.6] Aortic valve stenosis, mild [I35.0] Cirrhosis (HCC) [K74.60] Ulcerative esophagitis [K22.10] Dizziness [R42] Essential hypertension [I10] Mixed hyperlipidemia [E78.2] Uncontrolled type 2 diabetes mellitus with stage 3 chronic kidney disease, with long-term current use of insulin (HCC) [E11.22, E11.65, N18.3, Z79.4] Acquired hypothyroidism [E03.9] Anemia of chronic illness [D63.8] History of colonic polyps [Z86.010] Morbid obesity (HCC) [E66.01] Anemia, chronic renal failure, stage 3 (moderate) [N18.3, D63.1] Allergies: No Known Allergies Date Verified:11/24/17 Lab Values Lab Value Units Date High Low BRADEN* 23.8 % 10/28/2017 51.0 39.0 Progress Notes ([facility]): Magdiel Lee MD 11/19/2017 2:39 PM Signed switched to humalog due to insurance done Signed Prescriptions Disp Refills insulin lispro (HUMALOG KWIKPEN) 100 unit/mL pen 10 Pen 11 Si u with breakfast, 22 u with lunch, 15 u with dinner plus 2 u per 50 > 150 TDD 90 units Authorizing Provider: MAGDIEL LEE Progress Notes ([facility]): No Lechuga RN, RN 11/19/2017 9:47 AM Signed Pt is on Dr. Jones's schedule Friday. Was referred by Dr. Pardo-see 11/11 note and your documentation on phone note of Dr. Jones's of 11/11. Pt has a positive hemoccult. Wondering would pt need colonoscopy as well? See Dr. Jones's colonoscopy report of 06/02/17. Not sure if pt needs or if he could tolerate prep for colonoscopy? ANAND Garcia, RN BARBERING TEACHER.ENVELOPE STAMPING MACHINE OPERATOR 11/19/2017 11:[address] Pardo communicated with Dr. Jones directly and only an EGD is what that have decided to do. Nik Lee RN BARBERING TEACHER.ENVELOPE STAMPING MACHINE OPERATOR PROGRESS Observed: 11/07/2017 Status: COMPLETED Source: [place] 2:10 PM [facility] REPOSITORY HNO ID: [id number] Author: Ca Silva Service: (none) Author Type: Registered Nurse Type: Progress Notes Filed: 11/07/2017 3:56 PM Note Text: PRIMARY CARE COORDINATION QUICK NOTE Provider Action/FYI Spoke with daughter, Addie Introduced myself and role of hearing care practitioner Daughter states she is primary caregiver and manages all pt. needs. Notes pt. 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 Hgb 7.[address] Pardo -- referral to GI or gen surg. Per daughter, to discuss with Dr. Pardo at f/u on 11/11 Scheduled new cardiology appt. with Dr. Alexandre Kim 12/17/17 -- aortic stenosis Dr. Tracie Pardo severe, chronic anemia f/u 11/11/17 w/ cbc Dr. Lee, endo 11/11/17 Dr. Ball nephrology [facility] Provided pcc contact information. Pcc will f/u with pt. and daughter to further assess needs and provide resources Patient identified by name and date . NM LIVER SPECT Observed: 11/05/2017 Status: F Source: [place] 11:35 AM [facility] REPOSITORY * * *Final Report* * * DATE OF EXAM: Nov 05 2017 11:35AM [place] [id number] - NM LIVER SPECT / PROCEDURE REASON: Unspecified cirrhosis of liver * * * * Physician Interpretation * * * * INDICATION:: Chronic anemia and thrombocytopenia. Cirrhosis. Ascites. EXAMINATION: Radionuclide liver spleen scan with planar and SPECT imaging. Dose: 5.3 millicuries 99 technetium sulfur colloid IV SPECT imaging of liver was performed. COMPARISON:none RESULT: Colloid shift noted with relatively increased marrow uptake and splenic uptake compared with the liver. No focal abnormality identified. Finding is consistent with cirrhosis. The spleen does not appear enlarged. IMPRESSION: No evidence for splenomegaly. No focal hepatic abnormality. Colloid shift noted consistent with cirrhosis. Wicker Worker: PSCB Transcribe Date/Time: Nov 05 2017 12:29P Dictated by : DUANE FRANKLIN MD This examination was interpreted and the report reviewed and electronically signed by: DUANE FRANKLIN MD on Nov 05 2017 12:32PM EST [id number] Observed: 11/05/2017 Status: COMPLETED Source: [place] 10:37 AM [facility] REPOSITORY HNO ID: [id number] Author: Rossi Fernándeznes Elaine Service: (none) Author Type: (none) Type: Progress Notes Filed: 11/05/2017 11:06 AM Note Text: RADIOLOGY SERVICE PROGRESS NOTE SERVICE DATE: 11/05/2017 SERVICE TIME: 11:06 AM PATIENT IDENTITY VERIFICATION COMPLETED USING TWO (2) METHODS: Patient confirmed name and Date of verbally. PATIENT GENDER DATA: .male ALLERGIES: Reviewed and unchanged MEDICATIONS REVIEWED: Yes PATIENT RELEVANT IMPLANT DATA REVIEWED: Not Applicable CREATININE: Creatinine Date Value Ref Range Status 10/10/2017 1.84 (A) 1.5 MG/DL Final 05/30/2017 1.75 (H) 0.73 - 1.22 mg/dL Final 11/23/2016 1.71 (A) 1.5 MG/DL Final eGFR-All Other Races Date Value Ref Range Status 05/30/2017 38 . Final Comment: eGFR (Estimated GFR) Units of measure: mL/min/1.73 meters squared eGFR is derived from the reexpressed MDRD Study equation using the following parameters: serum creatinine, age, gender and race. The creatinine assay has been calibrated to be traceable to IDMS. An eGFR <60 mL/min/1.73m2 for >3 months is consistent with chronic kidney disease. Refer to KDOQI guidelines for clinical interpretation. In patients with unstable renal function, e.g. those with acute kidney injury, the eGFR may not accurately reflect actual GFR. eGFR- Date Value Ref Range Status 05/30/2017 46 Final P.O.C.T. RESULTS: N/A November 05, [address] PERFORMED: No IV SITE: Ambulatory: A peripheral IV was started in the Left antecubital site with a Angio cath: 24 gauge. POST EXAM PIV STATUS: Discontinued PROCEDURE TYPE: NM INJECT: Liver SPECT. 5.3 mCi Tc99m SULFUR COLLOID . No other medications given.. ADMINISTRATION TIME: 10:55 PATIENT DISCHARGED TO: Ambulatory patient, left NM department area. A Diagnostic radioactive procedure has taken place, with no further precautions necessary other than routine body substance precautions. More information regarding radiation safety can be found using this link: [email or web address] SIGNATURE: Rossi Henry PATIENT NAME: Hang Meza DATE: November 05, 2017 TIME: 11:06 AM PAGER/CONTACT #: OCCULT BLOOD DIAG. Collected: 11/04/2017 Status: F Source: [place] 12:30 PM [facility] REPOSITORY TYPE CODE TESTS RESULT OUT OF REFERENCE UNITS RANGE LAB OBSRCE Occult Stool Blood Source: LAB OBD Occult Negative Blood Diag. Performed By: #### OBDX #### [facility] [employer] [address] [place] [address] OCCULT BLOOD DIAG. Collected: 11/04/2017 Status: F Source: [place] 10:30 AM [facility] REPOSITORY TYPE CODE TESTS RESULT OUT OF REFERENCE UNITS RANGE LAB OBSRCE Occult Stool Blood Source: LAB OBD Occult Negative Blood Diag. Performed By: #### OBDX #### [facility] [employer] [address] [place] [address] PROGRESS Observed: 11/04/2017 Status: COMPLETED Source: [place] 10:14 AM [facility] REPOSITORY HNO ID: [id number] Author: Ca Silva Service: (none) Author Type: Registered Nurse Type: Progress Notes Filed: 11/07/2017 3:56 PM Note Text: PRIMARY CARE COORDINATION CHART REVIEW Patient identified for Care Coordination from: PCP Last PCP office visit: 10/28/2017 Next OV: 02/04/2018 CHRONIC DX: DM -- New pt. appt. with Magdiel Lee MD 11/11/17 Hemoglobin A1C (%) Date Value 10/28/2017 6.0 05/30/2017 7.7 ) HTN -- Last 3 Encounter BP Readings: Date: BP: 10/30/2017 142/60 10/28/2017 122/64 08/05/2017 122/78 Cirrhosis -- followed by Dr. Hodges, hepatology Anemia -- secondary to cirrhosis. Followed by Dr. Edvin GONZALEZ 10/28/17 PLAN: - Additional labs for evaluation for hemolytic anemia including: reticulocyte count, liver panel, LDH, haptoglobin, indirect Rg, direct Rg and indirect bilirubin. - History of cirrhosis? check HIV 1AND2 and hepatitis C serology and proceed with liver spleen scan for further evaluation. Follow-up with Dr. Hodges for liver disease. - Hemoccult stool x 3 - This patient has a chronic anemia and he is moderately symptomatic today, no blood transfusion. - Repeat CBC and return in 2 weeks to discuss whether we should proceed with a bone marrow biopsy for further evaluation of his anemia and thrombocytopenia. - Will also discussed Procrit/ Aranesp injection for anemia secondary to chronic renal failure if his bone marrow is normal and there is no evidence of hemolysis. I spent 60 minutes in the visit, with more than 50% of the total vogc-gk-vjwn time of the visit in counseling / coordination of care. The patient and family were allowed enough time to ask questions. All questions were answered to their satisfaction. Patient and family verbalized understanding of anemia and agreed to follow-up in 2 weeks. ? CARE GAPS: HM: Up to date (except tetanus) UTILIZATION WITHIN THE LAST 12 MONTHS: ? ED: N/A ? HOSPITAL: N/A ? SNF: N/A PRIMARY CARE COORDINATION OUTREACH PLAN: Will reach out to patient for Care Coordination Ca Silva RN CNPN Observed: 11/04/2017 Status: COMPLETED Source: [place] 12:00 AM [facility] REPOSITORY Telephone ([facility]) HANG MEZA ([id number]) 1940 M Date Time Provider Department 11/04/17 KAYLA BERNSTEIN (NAILA) [facility] During your visit today, we recorded the following information about you: Kayla Bernstein CNP 11/04/2017 5:58 AM Signed Please inform patient aortic stenosis (hardening of the aortic valve) has worsened since 2014. Next step is to f/u with cardiology - in [place] or [facility] Mark at [place]. Roberta Gerber RN, RN 11/04/2017 9:30 AM Signed Left message for patient to return phone call. ANAND Clemons 11/04/2017 9:45 AM Signed Daughter called and information listed below was given and she had no additional questions. Kerry Pacheco 11/04/2017 11:34 AM Signed Since patient wants to be seen at [facility]. Please put referral in for Dr. Sofia Gardner. PCP please advise. Regla Bernstein CNP 11/04/2017 12:04 PM Signed Done, thank you. Kayla Bernstein CNP 11/04/2017 12:04 PM Signed Addended by: KAYLA BERNSTEIN CNP on: 11/04/2017 12:04 PM Modules accepted: Orders Regla Pacheco 11/04/2017 1:14 PM Signed Sofia Gardner is no longer with [facility]. Left a message with [facility] dept to call the office back to schedule appointment. Alexandre Kim with [facility] would be the only network firewall engineer available per felling machine operator. Regla Bernstein CNP 11/04/2017 2:23 PM Signed Okay, probably best to stay with Ara and Dr. Lambert unless daughter, Addie has other option for cardiology in [place]. Dinora Mccoy 11/04/2017 3:20 PM Signed There is A Alexandre Kim in [place]. She will call there to make an appointment. Appointment has to made through [facility] [phone]. Phone number was given to Katie. If she can't get in to see him. We will call Dr. Lambert. Dinora Pacheco 11/04/2017 3:52 PM Signed Patient is scheduled. Regla Pacheco Allergies As of Date: 11/04/2017 (No Known Allergies) Date Reviewed: 10/30/2017 Reviewed by: Lisa Leavitt (Sekou) SEKOU Zuñiga - Fully Assessed Reason for Visit: Referral Information [[id number]] Cmt: Cardiology Primary Visit Diagnosis:Aortic stenosis, moderate [I35.0] Order(s):CONSULT TO CARDIOLOGY [9004] Order #: [id number]: 1 CONSULT TO CARDIOLOGY [9003] Order #: [id number]: 1 Prescriptions as of 11/04/2017 Sig: LEVOTHYROXINE 25 MCG CAPSULE Take 1 capsule by mouth once * SPIRONOLACTONE 50 MG TABLET Take 1 tablet by mouth once d* FERROUS SULFATE 325 MG (65 MG* Take 1 tablet by mouth daily * METOPROLOL TARTRATE 25 MG TAB* Take 1 tablet by mouth twice * SIMVASTATIN 20 MG TABLET Take 1 tablet by mouth once d* PANTOPRAZOLE 40 MG TABLET,DEL* Take 1 tablet by mouth once d* METAMUCIL ORAL Take by mouth once daily. LORATADINE 10 MG TABLET Take 10 mg by mouth once lilian* ASPIRIN 81 MG TABLET,DELAYED * Take 81 mg by mouth once lilian* INSULIN ASPART U-100 100 UNI* Inject subcutaneously 12 unit* DESOXIMETASONE 0.25 % TOPICAL* Apply thin layer twice daily INSULIN GLARGINE (U-100) 100 * Inject 25 Units subcutaneousl* LANCETS 28 GAUGE Test blood glucose 4 times da* BLOOD SUGAR DIAGNOSTIC STRIPS Test blood glucose 4 times da* PEN NEEDLE, DIABETIC 31 GAUGE* USE WITH INSULIN PENS 4 TIMES* GLIPIZIDE 5 MG TABLET Take 1 tablet by mouth daily * FUROSEMIDE 40 MG TABLET Take 40 mg by mouth every oth* METHYLCELLULOSE (LAXATIVE) 50* Take 500 mg by mouth DAILY. MICONAZOLE NITRATE 2 % TOPICA* Apply 1 application to affect* MECLIZINE 25 MG TABLET Take 1 tablet by mouth three * LACTULOSE 10 GRAM/15 ML ORAL * Take 30 mL by mouth once lilian* RIFAXIMIN 550 MG TABLET Take 1 tablet by mouth twice * Problem List As Of Date 11/04/2017 Noted Resolved Viral gastroenteritis [A08.4] INVALID FOR*09/06/2014 Dehydration [E86.0] INVALID FOR*09/06/2014 Hypothyroidism [E03.9] GERD (gastroesophageal reflux disease) [K21.9] Renal disorder [N28.9] More... 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 History of colonic polyps [Z86.010] INVALID FOR* More... Encounter Status:Closed by KERRY PINZON on 11/04/17 TK Observed: 11/04/2017 Status: COMPLETED Source: [place] 12:00 AM [facility] REPOSITORY Patient Outreach ([facility]) HANG MEZA ([id number]) 1940 M Date Time Provider Department 11/04/17 CA SILVA During your visit today, we recorded the following information about you: Ca Silva RN 11/07/2017 3:56 PM Signed PRIMARY CARE COORDINATION CHART REVIEW Patient identified for Care Coordination from: PCP Last PCP office visit: 10/28/2017 Next OV: 02/04/2018 CHRONIC DX: DM -- New pt. appt. with Magdiel Lee MD 11/11/17 Hemoglobin A1C (%) Date Value 10/28/2017 6.0 05/30/2017 7.7 ) HTN -- Last 3 Encounter BP Readings: Date: BP: 10/30/2017 142/60 10/28/2017 122/64 08/05/2017 122/78 Cirrhosis -- followed by Dr. Hodges, hepatology Anemia -- secondary to cirrhosis. Followed by Dr. Edvin GONZALEZ 10/28/17 PLAN: - Additional labs for evaluation for hemolytic anemia including: reticulocyte count, liver panel, LDH, haptoglobin, indirect Rg, direct Rg and indirect bilirubin. - History of cirrhosis? check HIV 1ANDamp;2 and hepatitis C serology and proceed with liver spleen scan for further evaluation. Follow-up with Dr. Hodges for liver disease. - Hemoccult stool x 3 - This patient has a chronic anemia and he is moderately symptomatic today, no blood transfusion. - Repeat CBC and return in 2 weeks to discuss whether we should proceed with a bone marrow biopsy for further evaluation of his anemia and thrombocytopenia. - Will also discussed Procrit/ Aranesp injection for anemia secondary to chronic renal failure if his bone marrow is normal and there is no evidence of hemolysis. I spent 60 minutes in the visit, with more than 50% of the total zifs-yo-hjok time of the visit in counseling / coordination of care. The patient and family were allowed enough time to ask questions. All questions were answered to their satisfaction. Patient and family verbalized understanding of anemia and agreed to follow-up in 2 weeks. ? CARE GAPS: HM: Up to date (except tetanus) UTILIZATION WITHIN THE LAST 12 MONTHS: ? ED: N/A ? HOSPITAL: N/A ? SNF: N/A PRIMARY CARE COORDINATION OUTREACH PLAN: Will reach out to patient for Care Coordination Ca Silva, RN Ca Silva RN 11/07/2017 3:56 PM Signed PRIMARY CARE COORDINATION QUICK NOTE Provider Action/FYI Spoke with daughter, Addie Introduced myself and role of hearing care practitioner Daughter states she is primary caregiver and manages all pt. needs. Notes pt. 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 Hgb 7[address] Pardo -- referral to GI or gen surg. Per daughter, to discuss with Dr. Pardo at f/u on 11/11 Scheduled new cardiology appt. with Dr. Alexandre Kim 12/17/17 -- aortic stenosis Dr. Tracie Pardo severe, chronic anemia f/u 11/11/17 w/ cbc carlene Pierce 11/11/17 Dr. Ball nephrology [facility] Provided pcc contact information. Pcc will f/u with pt. and daughter to further assess needs and provide resources Patient identified by name and date . Allergies As of Date: 11/04/2017 (No Known Allergies) Date Reviewed: 10/30/2017 Reviewed by: Lisa Leavitt (Sekou) SEKOU Zuñiga - Fully Assessed Reason for Visit: [place]- Other [[id number]] Prescriptions as of 11/04/2017 Sig: LEVOTHYROXINE 25 MCG TABLET Take 1 tablet by mouth once d* SPIRONOLACTONE 50 MG TABLET Take 1 tablet by mouth once d* FERROUS SULFATE 325 MG (65 MG* Take 1 tablet by mouth daily * METOPROLOL TARTRATE 25 MG TAB* Take 1 tablet by mouth twice * SIMVASTATIN 20 MG TABLET Take 1 tablet by mouth once d* PANTOPRAZOLE 40 MG TABLET,DEL* Take 1 tablet by mouth once d* METAMUCIL ORAL Take by mouth once daily. LORATADINE 10 MG TABLET Take 10 mg by mouth once lilian* ASPIRIN 81 MG TABLET,DELAYED * Take 81 mg by mouth once lilian* INSULIN ASPART U-100 100 UNI* Inject subcutaneously 12 unit* DESOXIMETASONE 0.25 % TOPICAL* Apply thin layer twice daily INSULIN GLARGINE (U-100) 100 * Inject 25 Units subcutaneousl* LANCETS 28 GAUGE Test blood glucose 4 times da* BLOOD SUGAR DIAGNOSTIC STRIPS Test blood glucose 4 times da* PEN NEEDLE, DIABETIC 31 GAUGE* USE WITH INSULIN PENS 4 TIMES* GLIPIZIDE 5 MG TABLET Take 1 tablet by mouth daily * FUROSEMIDE 40 MG TABLET Take 40 mg by mouth every oth* METHYLCELLULOSE (LAXATIVE) 50* Take 500 mg by mouth DAILY. MICONAZOLE NITRATE 2 % TOPICA* Apply 1 application to affect* MECLIZINE 25 MG TABLET Take 1 tablet by mouth three * LACTULOSE 10 GRAM/15 ML ORAL * Take 30 mL by mouth once lilian* RIFAXIMIN 550 MG TABLET Take 1 tablet by mouth twice * Problem List As Of Date 11/04/2017 Noted Resolved Viral gastroenteritis [A08.4] INVALID FOR*09/06/2014 Dehydration [E86.0] INVALID FOR*09/06/2014 Hypothyroidism [E03.9] GERD (gastroesophageal reflux disease) [K21.9] Renal disorder [N28.9] More... 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 History of colonic polyps [Z86.010] INVALID FOR* More... Encounter Status:Closed by CA SILVA on 11/07/17 OCCULT BLOOD DIAG. Collected: 11/03/2017 Status: F Source: [place] 12:00 PM [facility] REPOSITORY TYPE CODE TESTS RESULT OUT OF RANGE REFERENCE UNITS LAB OBSRCE Occult Stool Blood Source: LAB OBD Abnormal Occult Positive Alert Blood Diag. Performed By: #### OBDX #### [facility] [address] [place], [place] [address] PROGRESS Observed: 10/30/2017 Status: COMPLETED Source: [place] 3:48 PM [facility] REPOSITORY HNO ID: [id number] Author: Deion Pardo Service: (none) Author Type: Physician Type: Progress Notes Filed: 10/31/2017 10:23 AM Note Text: Hematology and Medical Oncology PATIENT NAME: Hang Meza. CLINIC NO: [id number]. ATTENDING PHYSICIAN: Deion Pardo MD. DATE OF SERVICE:10/30/2017. DIAGNOSIS: chronic anemia and thrombocytopenia Consultation requested by Kayla Bernstein CNP for an opinion regarding anemia and thrombocytopenia. My final recommendations will be communicated back to the requesting physician by way of shared Medical record or letter to requesting physician via US mail. PERFORMANCE STATUS:70% HPI: this is a 69-year-old gentleman with history of chronic anemia who presented to [facility] because of a recent fall and loss of consciousness. He has a chronic anemia for many years, but beginning last fall his hemoglobin has been dropping rapidly. GI workup including EGD and colonoscopy showed no source of bleeding or pathology. A benign polyp was removed from his colon, and there were no evidence of esophageal varices. He saw Dr. Hodges (hepatology) last month for chronic liver disease, cirrhosis. Patient has history of fatty liver disease, but no review his liver biopsy. he denied jaundice or any evidence of ascites. He also saw Dr. Ball (nephrology) in chronic renal failure. Aldactone decreased to once daily. Increased iron supplement once daily for anemia. He also has history of thrombocytopenia, without any bleeding issues. he denied rectal bleeding, melena, hematuria or hemoptysis. Patient has no history of alcohol use, or viral hepatitis. He had no recent blood transfusion. Patient has been feeling more tired in the last 4-6 weeks. He has dyspnea with exertion, but no chest pain or palpitation. He denied dizziness or lightheadedness. No increased lethargy or frequent headaches. He has fallen one time in the last 3 months. +cold intolerance, no restless legs symptoms. Patient denied jaundice or dark urine or yarelis colored stool. Complain of frequent urination at night which keep him up. He also noted increase in edema. He denied change in weight or decreased appetite. He is a and was once. He is not sexually active. no family history of cancer or anemia, son with HIV. ? MEDICATIONS: Current Outpatient Prescriptions: spironolactone (ALDACTONE) 50 mg tablet Take 1 tablet by mouth once daily. ferrous sulfate 325 mg (65 mg iron) tablet Take 1 tablet by mouth daily with breakfast. metoprolol tartrate, short acting, (LOPRESSOR) 25 mg tablet Take 1 tablet by mouth twice daily. Levothyroxine 25 mcg cap Take 1 capsule by mouth once daily. simvastatin (ZOCOR) 20 mg tablet Take 1 tablet by mouth once daily. pantoprazole DR (PROTONIX) 40 mg tablet Take 1 tablet by mouth once daily. 30 minutes before eating. PSYLLIUM HUSK (METAMUCIL ORAL) Take by mouth once daily. loratadine (CLARITIN) 10 mg tablet Take 10 mg by mouth once daily. as needed aspirin, enteric coated (ASPIRIN, ENTERIC COATED) 81 mg EC tablet Take 81 mg by mouth once daily. as needed insulin aspart (NOVOLOG FLEXPEN) 100 unit/mL inpn Inject subcutaneously 12 units with breakfast, 18 units with lunch, 15 units with dinner. Plus SSi 2 units per 50 >150. TDD 75 units.E11.22 desoximetasone (TOPICORT) 0.25 % cream Apply thin layer twice daily insulin glargine (LANTUS) 100 unit/mL (3 mL) inpn Inject 25 Units subcutaneously twice daily. lancets (FREESTYLE LANCETS) 28 gauge misc Test blood glucose 4 times daily blood sugar diagnostic (FREESTYLE TEST) test strip Test blood glucose 4 times daily Insulin [place], Disposable, (BD ULTRAFINE III MINI PEN) 31 gauge x 3/16 ndle USE WITH INSULIN PENS 4 TIMES DAILY glipiZIDE (GLUCOTROL) 5 mg tablet Take 1 tablet by mouth daily before breakfast. furosemide (LASIX) 40 mg tablet Take 40 mg by mouth every other day. Methylcellulose, Laxative, (FIBER THERAPY) 500 mg tab Take 500 mg by mouth DAILY. miconazole (LOTRIMIN AF, DESENEX) 2 % powder Apply 1 application to affected area twice daily. meclizine (ANTIVERT) 25 mg tab Take 1 tablet by mouth three times daily as needed. lactulose (ENULOSE) 10 gram/15 mL solution Take 30 mL by mouth once daily. rifaximin (XIFAXAN) 550 mg tab Take 1 tablet by mouth twice daily. No current facility-administered medications for this visit. . ALLERGIES:ALLERGIES No Known Allergies. PAST MEDICAL HISTORY: PAST MEDICAL HISTORY Diagnosis Date - BPH (benign prostatic hyperplasia) - Cirrhosis (HCC) fatty liver - GERD (gastroesophageal reflux disease) - Heart murmur per daughter - Hiatal hernia 07/25/15 - High cholesterol - Hypertension - Hypothyroidism - Mental disorder anxiety - Renal disorder HX kidney stones - Snoring - Stroke (HCC) daughter states minor strokes - Thrombocytopenia (HCC) - 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 . PAST SURGICAL HISTORY: PAST SURGICAL HISTORY Procedure Laterality Date - COLONOSCOP W/ OR W/O BRSH SPEC 06/02/2017 2 year repeat/hard IV stick - COLONOSCOPY 2013 - EGD 2013, 08/08 - EGD W/O OR W/BRUSH/WASH 06/02/2017 EGD - KIDNEY SURGERY HX - PAST SURGICAL HISTORY OF 2013 umbilical hernia repair - PAST SURGICAL HISTORY OF prostate biopsy . FAMILY HISTORY: FAMILY HISTORY Problem Relation Age of Onset - Heart Father MA - Prostate Cancer Father - Diabetes Mother - Breast Cancer Sister - Heart Brother - prescott [OTHER] Brother . SOCIAL HISTORY:Social History Marital status: Spouse name: Years of education: Number of children: 5 Social History Main Topics Smoking status: Former Smoker Packs/day: 0.00 Years: 10.00 Types: Cigars Quit date: 11/07/2002 Smokeless status: Never Used Alcohol use: No Drug use: No Sexual activity: Yes Partners with: Female . REVIEW OF SYSTEMS: CONSTITUTIONAL: No fevers, chills, nightsweats, unintended weight loss + fatigue HEENT: Denies frequent or severe heaches, nasal congestion/sinus symptoms, problematic allergy problems. EYES: No diplopia or blurry vision. CARDIOVASCULAR: No chest pain, + dyspnea with exertion, palpitations, orthopnea, PND, + ankle edema. PULM: No dyspnea at rest, unexplained cough. GI: No dysphagia/odynophagia, problematic reflux, constipation, diarrhea, changes in stool habits, hematochezia, melena. : No new urinary complaints, including dysuria, gross hematuria or pyuria. NEURO: No new balance problems, peripheral weakness/paresthesias or numbness of concern. MUSC-SKEL: No new joint pain, swelling, or erythema. PSY: No concerns regarding depression, anxiety or panic. INTEGUMENTARY: No new skin changes (rash, new or changing mole, new growth) PHYSICAL EXAMINATION: 77-year-old well-nourished well-developed gentleman in no Distress. BP 142/60 Pulse 77 Temp 97 Ht 5' 8.11[verified by Opal Benedict LPN[ (1.73m) Wt 291 lb (132.0kg) BMI 44.10 kg/(m2). oxygen saturation 95% Complexion pale. HEENT: Head is normocephalic, atraumatic. Sclerae white, conjunctivae pink. PEERL. EOMs are intact. Oropharynx is benign. LYMPHATICS: There is no palpable adenopathy in the neck, supraclavicular region, axillae, or groin. LUNGS: Lungs are clear to percussion and auscultation. diminished breath sounds at bases HEART: Heart is normal with grade 2/6 systolic murmurs, no gallops, or rubs. ABDOMEN: obese, Soft and nontender without organomegaly. No masses or ascites. EXTREMITIES: Are +1 edema. NEUROLOGIC: Exam is physiologic LABORATORY DATA: Component Latest Ref Rng AND Units 10/30/2017 WBC, [place] 3.70 - 11.00 k/uL 6.40 RBC, Renita 4.20 - 6.00 m/uL 2.07 (L) Hemoglobin, [place] 13.0 - 17.0 g/dL 7.0 (L) Hematocrit, [place] 39.0 - 51.0 % 23.4 (L) MCV, [place] 80.0 - 100.0 fL 113.0 (H) MCH, [place] 26.0 - 34.0 pg 33.8 MCHC, [place] 30.5 - 36.0 g/dL 29.9 (L) RDW, [place] 11.5 - 15.0 % 17.6 (H) Platelet Cnt, [place] 150 - 400 k/uL 97 (L) MPV, [place] 9.0 - 12.7 fL 12.8 (H) Absol Gran Count 1.45 - 7.50 k/uL 3.97 Absolute nRBC <0.01 k/uL Preliminary result. Interpret with caution. Final results may vary. Results . . . Component Latest Ref Rng AND Units 10/30/2017 10/30/2017 10/30/2017 2:05 PM 3:36 PM 3:40 PM ABO/RH(D) A POSITIVE Antibody Screen NEG Order Type Blood Bank Blood Bank Blood Bank Historical Ab Scr Status NEGATIVE Retic % 0.4 - 2.0 % 4.9 (H) Abs Retic 0.0180 - 0.1000 M/uL 0.102 (H) DAGT, Polyspecific AHG NEG peripheral blood smear: Normocytic normochromic anemia with increased anisocytosis, macro-ovalocytes and basophilic stipplings, occasional NRBC's AND increased reticulocytes Platelet decrease without clotting or clumping, occasional large platelet. Lymphopenia. no rouleaux or agglutination. Component Latest Ref Rng AND Units 10/10/2017 Glucose 212 BUN 31 Creatinine 1.5 MG/DL 1.84 (A) Calcium 8.0 Phosphate - Intl 3.1 Sodium 134 Potassium 4.4 Component Latest Ref Rng AND Units 10/30/2017 Albumin 3.9 - 4.9 g/dL 3.6 (L) Bilirubin, Total 0.2 - 1.3 mg/dL 0.7 Bilirubin, Conjug <0.2 mg/dL 0.2 (H) Alkaline Phosphatase 36 - 108 U/L 47 AST 14 - 40 U/L 32 ALT 10 - 54 U/L 16 Protein, Total 6.3 - 8.0 g/dL 7.8 Iron 41 - 186 ug/dL 207 (H) TIBC 232 - 386 ug/dL 395 (H) Transferrin Saturation 15 - 57 % 52 Ferritin 30.3 - 565.7 ng/mL 66.4 LD 135 - 225 U/L 172 Haptoglobin 31 - 238 mg/dL 105 Component Latest Ref Rng AND Units 06/10/2017 Iron 41 - 186 ug/dL 90 TIBC 232 - 386 ug/dL 439 (H) Transferrin Saturation 15 - 57 % 21 Ferritin 30.3 - 565.7 ng/mL 19.3 (L) Vitamin B12 211 - 946 pg/mL 422 Folate >4.7 ng/mL 14.3 ASSESSMENT: 77-year-old gentleman with anemia of chronic disease, stage 3 renal failure, chronic thrombocytopenia could be consistent with ITP versus chronic liver disease. no clinical evidence of chronic GI blood loss. microcytosis may be secondary to hemolysis versus ineffective hematopoiesis. He had a history of iron deficiency, but currently on oral iron replacement therapy. PLAN: - Additional labs for evaluation for hemolytic anemia including: reticulocyte count, liver panel, LDH, haptoglobin, indirect Rg, direct Rg and indirect bilirubin. - History of cirrhosis? check HIV 1AND2 and hepatitis C serology and proceed with liver spleen scan for further evaluation. Follow-up with Dr. Hodges for liver disease. - Hemoccult stool x 3 - This patient has a chronic anemia and he is moderately symptomatic today, no blood transfusion. - Repeat CBC and return in 2 weeks to discuss whether we should proceed with a bone marrow biopsy for further evaluation of his anemia and thrombocytopenia. - Will also discussed Procrit/ Aranesp injection for anemia secondary to chronic renal failure if his bone marrow is normal and there is no evidence of hemolysis. I spent 60 minutes in the visit, with more than 50% of the total vufr-py-llrt time of the visit in counseling / coordination of care. The patient and family were allowed enough time to ask questions. All questions were answered to their satisfaction. Patient and family verbalized understanding of anemia and agreed to follow-up in 2 weeks. Deion Pardo MD. ELECTRONICALLY SIGNED Cc: DO Dr. Felipe Hopkins TYPE AND SCREEN Collected: 10/30/2017 Status: F Source: [place] 3:40 PM [facility] REPOSITORY TYPE CODE TESTS RESULT OUT OF REFERENCE UNITS RANGE LAB %ABR A ABO/RH(D) POSITIVE LAB % Antibody NEG Screen Performed By: #### TSCR #### [facility] [address] [place], [place] [address] RETICULOCYTE Collected: 10/30/2017 Status: F Source: [place] 3:36 PM [facility] REPOSITORY TYPE CODE TESTS RESULT OUT OF REFERENCE UNITS RANGE LAB RETC 0.4-2.0 % High Retic% 4.9 LAB ABRET 0.0180-0.1000 M/uL High Abs Retic 0.102 Performed By: #### RETIC, HFP, IRON, HAPTO, FERR, LD6, AHCV, HIV12C #### [place] [address] HEPATIC FUNCTN PANEL Collected: 10/30/2017 Status: F Source: [place] 3:36 PM [facility] REPOSITORY TYPE CODE TESTS RESULT OUT OF REFERENCE UNITS RANGE LAB ALB 3.9-4.9 g/dL Low Albumin 3.6 LAB TBIL 0.2-1.3 mg/dL Bilirubin, Total 0.7 LAB CBIL <0.2 mg/dL High Bilirubin,Conjuga 0.2 ferdinand LAB ALKP 36-108 U/L Alkaline Phosphatase 47 LAB AST 14-40 U/L AST 32 LAB ALT 10-54 U/L ALT 16 LAB TP 6.3-8.0 g/dL Protein, Total 7.8 Performed By: #### RETIC, HFP, IRON, HAPTO, FERR, LD6, AHCV, HIV12C #### [place] [address] IRON AND TIBC Collected: 10/30/2017 Status: F Source: [place] 3:36 PM [facility] REPOSITORY TYPE CODE TESTS RESULT OUT OF REFERENCE UNITS RANGE LAB IRN 41-186 ug/dL Iron High 207 LAB TIBC 232-386 ug/dL TIBC High 395 LAB SAT 15-57 % Transferrin Saturatn 52 Performed By: #### RETIC, HFP, IRON, HAPTO, FERR, LD6, AHCV, HIV12C #### [place] [address] HAPTOGLOBIN Collected: 10/30/2017 Status: F Source: [place] 3:36 PM [facility] REPOSITORY TYPE CODE TESTS RESULT OUT OF REFERENCE UNITS RANGE LAB HAPTO 31-238 mg/dL Haptoglobin 105 Performed By: #### RETIC, HFP, IRON, HAPTO, FERR, LD6, AHCV, HIV12C #### [place] [address] FERRITIN Collected: 10/30/2017 Status: F Source: [place] 3:36 PM [facility] REPOSITORY TYPE CODE TESTS RESULT OUT OF REFERENCE UNITS RANGE LAB FERR 30.3-565.7 ng/mL Ferritin 66.4 Performed By: #### RETIC, HFP, IRON, HAPTO, FERR, LD6, AHCV, HIV12C #### [place] [phone] LD Collected: 10/30/2017 Status: F Source: [facility] 3:36 PM MA[facility] REPOSITORY TYPE CODE TESTS RESULT OUT OF RANGE REFERENCE UNITS LAB LD 135-225 U/L LD 172 Performed By: #### RETIC, HFP, IRON, HAPTO, FERR, LD6, AHCV, HIV12C #### [place] [phone] HEPATITIS C AB IA Collected: 10/30/2017 Status: F Source: [place] 3:36 PM [facility] REPOSITORY TYPE CODE TESTS RESULT OUT OF REFERENCE UNITS RANGE LAB AHCV Negative Hepatitis C Ab Negative IA Performed By: #### RETIC, HFP, IRON, HAPTO, FERR, LD6, AHCV, HIV12C #### [place] [phone] HIV 12 COMBO (AG/AB) Collected: 10/30/2017 Status: F Source: [place] 3:36 PM [facility] REPOSITORY TYPE CODE TESTS RESULT OUT OF REFERENCE UNITS RANGE LAB HVAGAB Non Reactive HIV Non Reactive 12 Ag/Ab Result Comment: (NOTE) HIV Information: [place] Rev. Code 3701.243(E): This information has been disclosed to you from confidential records protected from disclosure by state law. You shall make no further disclosure of this information without the specific, written, and informed release of the individual to whom it pertains, or as otherwise permitted by state law. A general authorization for the release of medical or other information is not sufficient for the purpose of the release of HIV test results or diagnoses. Performed By: #### RETIC, HFP, IRON, HAPTO, FERR, LD6, AHCV, HIV12C #### [facility] [employer] [facility] [place], [place] [address] RENITA ABS GR + CBC Collected: 10/30/2017 Status: F Source: [place] 2:05 PM [facility] REPOSITORY TYPE CODE TESTS RESULT OUT OF REFERENCE UNITS RANGE LAB WWBC 3.70-11.00 k/uL [place] WBC 6.40 LAB WRBC 4.20-6.00 m/uL Low [place] RBC 2.07 LAB WHGB 13.0-17.0 g/dL Low [place] Hemoglobin 7.0 LAB WHCT 39.0-51.0 % Low [place] Hematocrit 23.4 LAB WMCV 80.0-100.0 fL [place] High MCV 113.0 LAB WMCH 26.0-34.0 pg [place] MCH 33.8 LAB WMCHC 30.5-36.0 g/dL Low [place] MCHC 29.9 LAB WRDW 11.5-15.0 % [place] High RDW 17.6 LAB WPLT 150-400 k/uL Low [place] Platelet Cnt 97 LAB WMPV 9.0-12.7 fL [place] High MPV 12.8 Result Comment: Test performed at: [facility], [address] [place] [address]. LAB ABGRAN 1.45-7.50 k/uL Absol Gran 3.97 Count Result Comment: Reviewed LAB ABSNUC <0.01 k/uL Preliminary Absolute nRBC result. Interpret with caution. Final results may vary. Results requested and read back by: Result Comment: HGB=7.0,SEKOU RECIO,[id number],BYYULIET Performed By: #### WAGCBC #### [facility] [employer] [address] [place], [place] [address] CNOVSP Observed: 10/30/2017 Status: COMPLETED Source: [place] 2:00 PM [facility] REPOSITORY Visit (SP) Office (HEMAWS) HANG MEZA ([id number]) 1940 M Date Time Provider Department 10/30/17 2:00 PM DEION PARDO During your visit today, we recorded the following information about you: Temperature Pulse Blood pressure Weight 97 degrees 77/minute 142/60 132 kg Height 1.73 m Lisa Zuñiga LPN, LPN 10/30/2017 2:41 PM Signed New patient, discuss recent labs and dx: chronic anemia SEKOU Sorenson MD 10/31/2017 10:23 AM Signed Hematology and Medical Oncology PATIENT NAME: Hang Meza. CLINIC NO: [id number]. ATTENDING PHYSICIAN: Deion Pardo MD. DATE OF SERVICE:10/30/2017. DIAGNOSIS: chronic anemia and thrombocytopenia Consultation requested by Kayla Bernstein CNP for an opinion regarding anemia and thrombocytopenia. My final recommendations will be communicated back to the requesting physician by way of shared Medical record or letter to requesting physician via US mail. PERFORMANCE STATUS:70% HPI: this is a 69-year-old gentleman with history of chronic anemia who presented to [facility] because of a recent fall and loss of consciousness. He has a chronic anemia for many years, but beginning last fall his hemoglobin has been dropping rapidly. GI workup including EGD and colonoscopy showed no source of bleeding or pathology. A benign polyp was removed from his colon, and there were no evidence of esophageal varices. He saw Dr. Hodges (hepatology) last month for chronic liver disease, cirrhosis. Patient has history of fatty liver disease, but no review his liver biopsy. he denied jaundice or any evidence of ascites. He also saw Dr. Ball (nephrology) in chronic renal failure. Aldactone decreased to once daily. Increased iron supplement once daily for anemia. He also has history of thrombocytopenia, without any bleeding issues. he denied rectal bleeding, melena, hematuria or hemoptysis. Patient has no history of alcohol use, or viral hepatitis. He had no recent blood transfusion. Patient has been feeling more tired in the last 4-6 weeks. He has dyspnea with exertion, but no chest pain or palpitation. He denied dizziness or lightheadedness. No increased lethargy or frequent headaches. He has fallen one time in the last 3 months. +cold intolerance, no restless legs symptoms. Patient denied jaundice or dark urine or yarelis colored stool. Complain of frequent urination at night which keep him up. He also noted increase in edema. He denied change in weight or decreased appetite. He is a and was once. He is not sexually active. no family history of cancer or anemia, son with HIV. ? MEDICATIONS: Current Outpatient Prescriptions: spironolactone (ALDACTONE) 50 mg tablet Take 1 tablet by mouth once daily. ferrous sulfate 325 mg (65 mg iron) tablet Take 1 tablet by mouth daily with breakfast. metoprolol tartrate, short acting, (LOPRESSOR) 25 mg tablet Take 1 tablet by mouth twice daily. Levothyroxine 25 mcg cap Take 1 capsule by mouth once daily. simvastatin (ZOCOR) 20 mg tablet Take 1 tablet by mouth once daily. pantoprazole DR (PROTONIX) 40 mg tablet Take 1 tablet by mouth once daily. 30 minutes before eating. PSYLLIUM HUSK (METAMUCIL ORAL) Take by mouth once daily. loratadine (CLARITIN) 10 mg tablet Take 10 mg by mouth once daily. as needed aspirin, enteric coated (ASPIRIN, ENTERIC COATED) 81 mg EC tablet Take 81 mg by mouth once daily. as needed insulin aspart (NOVOLOG FLEXPEN) 100 unit/mL inpn Inject subcutaneously 12 units with breakfast, 18 units with lunch, 15 units with dinner. Plus SSi 2 units per 50 ANDgt;150. TDD 75 units.E11.22 desoximetasone (TOPICORT) 0.25 % cream Apply thin layer twice daily insulin glargine (LANTUS) 100 unit/mL (3 mL) inpn Inject 25 Units subcutaneously twice daily. lancets (FREESTYLE LANCETS) 28 gauge misc Test blood glucose 4 times daily blood sugar diagnostic (FREESTYLE TEST) test strip Test blood glucose 4 times daily Insulin [place], Disposable, (BD ULTRAFINE III MINI PEN) 31 gauge x 3/16ANDquot; ndle USE WITH INSULIN PENS 4 TIMES DAILY glipiZIDE (GLUCOTROL) 5 mg tablet Take 1 tablet by mouth daily before breakfast. furosemide (LASIX) 40 mg tablet Take 40 mg by mouth every other day. Methylcellulose, Laxative, (FIBER THERAPY) 500 mg tab Take 500 mg by mouth DAILY. miconazole (LOTRIMIN AF, DESENEX) 2 % powder Apply 1 application to affected area twice daily. meclizine (ANTIVERT) 25 mg tab Take 1 tablet by mouth three times daily as needed. lactulose (ENULOSE) 10 gram/15 mL solution Take 30 mL by mouth once daily. rifaximin (XIFAXAN) 550 mg tab Take 1 tablet by mouth twice daily. No current facility-administered medications for this visit. . ALLERGIES:ALLERGIES No Known Allergies. PAST MEDICAL HISTORY: 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 . PAST SURGICAL HISTORY: PAST SURGICAL HISTORY Procedure Laterality Date - COLONOSCOP W/ OR W/O BRSH SPEC 06/02/2017 2 year repeat/hard IV stick - COLONOSCOPY 2013 - EGD 2013, 08/08 - EGD W/O OR W/BRUSH/WASH 06/02/2017 EGD - KIDNEY SURGERY HX - PAST SURGICAL HISTORY OF 2013 umbilical hernia repair - PAST SURGICAL HISTORY OF prostate biopsy . FAMILY HISTORY: FAMILY HISTORY Problem Relation Age of Onset - Heart Father MA - Prostate Cancer Father - Diabetes Mother - Breast Cancer Sister - Heart Brother - prescott [OTHER] Brother . SOCIAL HISTORY:Social History Marital status: Spouse name: Years of education: Number of children: 5 Social History Main Topics Smoking status: Former Smoker Packs/day: 0.00 Years: 10.00 Types: Cigars Quit date: 11/07/2002 Smokeless status: Never Used Alcohol use: No Drug use: No Sexual activity: Yes Partners with: Female . REVIEW OF SYSTEMS: CONSTITUTIONAL: No fevers, chills, nightsweats, unintended weight loss + fatigue HEENT: Denies frequent or severe heaches, nasal congestion/sinus symptoms, problematic allergy problems. EYES: No diplopia or blurry vision. CARDIOVASCULAR: No chest pain, + dyspnea with exertion, palpitations, orthopnea, PND, + ankle edema. PULM: No dyspnea at rest, unexplained cough. GI: No dysphagia/odynophagia, problematic reflux, constipation, diarrhea, changes in stool habits, hematochezia, melena. : No new urinary complaints, including dysuria, gross hematuria or pyuria. NEURO: No new balance problems, peripheral weakness/paresthesias or numbness of concern. MUSC-SKEL: No new joint pain, swelling, or erythema. PSY: No concerns regarding depression, anxiety or panic. INTEGUMENTARY: No new skin changes (rash, new or changing mole, new growth) PHYSICAL EXAMINATION: 77-year-old well-nourished well-developed gentleman in no Distress. BP 142/60 Pulse 77 Temp 97 Ht 5' 8.11ANDquot;[verified by Opal Benedict LPN[ (1.73m) Wt 291 lb (132.0kg) BMI 44.10 kg/(m2). oxygen saturation 95% Complexion pale. HEENT: Head is normocephalic, atraumatic. Sclerae white, conjunctivae pink. PEERL. EOMs are intact. Oropharynx is benign. LYMPHATICS: There is no palpable adenopathy in the neck, supraclavicular region, axillae, or groin. LUNGS: Lungs are clear to percussion and auscultation. diminished breath sounds at bases HEART: Heart is normal with grade 2/6 systolic murmurs, no gallops, or rubs. ABDOMEN: obese, Soft and nontender without organomegaly. No masses or ascites. EXTREMITIES: Are +1 edema. NEUROLOGIC: Exam is physiologic LABORATORY DATA: Component Latest Ref Rng ANDamp; Units 10/30/2017 WBC, [place] 3.70 - 11.00 k/uL 6.40 RBC, [place] 4.20 - 6.00 m/uL 2.07 (L) Hemoglobin, [place] 13.0 - 17.0 g/dL 7.0 (L) Hematocrit, [place] 39.0 - 51.0 % 23.4 (L) MCV, [place] 80.0 - 100.0 fL 113.0 (H) MCH, [place] 26.0 - 34.0 pg 33.8 MCHC, [place] 30.5 - 36.0 g/dL 29.9 (L) RDW, [place] 11.5 - 15.0 % 17.6 (H) Platelet Cnt, [place] 150 - 400 k/uL 97 (L) MPV, [place] 9.0 - 12.7 fL 12.8 (H) Absol Gran Count 1.45 - 7.50 k/uL 3.97 Absolute nRBC ANDlt;0.01 k/uL Preliminary result. Interpret with caution. Final results may vary. Results . . . Component Latest Ref Rng ANDamp; Units 10/30/2017 10/30/2017 10/30/2017 2:05 PM 3:36 PM 3:40 PM ABO/RH(D) A POSITIVE Antibody Screen NEG Order Type Blood Bank Blood Bank Blood Bank Historical Ab Scr Status NEGATIVE Retic % 0.4 - 2.0 % 4.9 (H) Abs Retic 0.0180 - 0.1000 M/uL 0.102 (H) DAGT, Polyspecific AHG NEG peripheral blood smear: Normocytic normochromic anemia with increased anisocytosis, macro-ovalocytes and basophilic stipplings, occasional NRBC's ANDamp; increased reticulocytes Platelet decrease without clotting or clumping, occasional large platelet. Lymphopenia. no rouleaux or agglutination. Component Latest Ref Rng ANDamp; Units 10/10/2017 Glucose 212 BUN 31 Creatinine 1.5 MG/DL 1.84 (A) Calcium 8.0 Phosphate - Intl 3.1 Sodium 134 Potassium 4.4 Component Latest Ref Rng ANDamp; Units 10/30/2017 Albumin 3.9 - 4.9 g/dL 3.6 (L) Bilirubin, Total 0.2 - 1.3 mg/dL 0.7 Bilirubin, Conjug ANDlt;0.2 mg/dL 0.2 (H) Alkaline Phosphatase 36 - 108 U/L 47 AST 14 - 40 U/L 32 ALT 10 - 54 U/L 16 Protein, Total 6.3 - 8.0 g/dL 7.8 Iron 41 - 186 ug/dL 207 (H) TIBC 232 - 386 ug/dL 395 (H) Transferrin Saturation 15 - 57 % 52 Ferritin 30.3 - 565.7 ng/mL 66.4 LD 135 - 225 U/L 172 Haptoglobin 31 - 238 mg/dL 105 Component Latest Ref Rng ANDamp; Units 06/10/2017 Iron 41 - 186 ug/dL 90 TIBC 232 - 386 ug/dL 439 (H) Transferrin Saturation 15 - 57 % 21 Ferritin 30.3 - 565.7 ng/mL 19.3 (L) Vitamin B12 211 - 946 pg/mL 422 Folate ANDgt;4.7 ng/mL 14.3 ASSESSMENT: 77-year-old gentleman with anemia of chronic disease, stage 3 renal failure, chronic thrombocytopenia could be consistent with ITP versus chronic liver disease. no clinical evidence of chronic GI blood loss. microcytosis may be secondary to hemolysis versus ineffective hematopoiesis. He had a history of iron deficiency, but currently on oral iron replacement therapy. PLAN: - Additional labs for evaluation for hemolytic anemia including: reticulocyte count, liver panel, LDH, haptoglobin, indirect Rg, direct Rg and indirect bilirubin. - History of cirrhosis? check HIV 1ANDamp;2 and hepatitis C serology and proceed with liver spleen scan for further evaluation. Follow-up with Dr. Hodges for liver disease. - Hemoccult stool x 3 - This patient has a chronic anemia and he is moderately symptomatic today, no blood transfusion. - Repeat CBC and return in 2 weeks to discuss whether we should proceed with a bone marrow biopsy for further evaluation of his anemia and thrombocytopenia. - Will also discussed Procrit/ Aranesp injection for anemia secondary to chronic renal failure if his bone marrow is normal and there is no evidence of hemolysis. I spent 60 minutes in the visit, with more than 50% of the total [id number]-[id number] time of the visit in counseling / coordination of care. The patient and family were allowed enough time to ask questions. All questions were answered to their satisfaction. Patient and family verbalized understanding of anemia and agreed to follow-up in 2 weeks. Deion Pardo MD. ELECTRONICALLY SIGNED Cc: DO Dr. Felipe Hopkins Referring Provider: KAYLA BERNSTEIN (HARNESS INSTALLER) [[id number]] Allergies As of Date: 10/30/2017 (No Known Allergies) Date Reviewed: 10/30/2017 Reviewed by: Lisa Leavitt (Sekou) SEKOU Zuñiga - Fully Assessed Reason for Visit: New Patient [172] Primary Visit Diagnosis:Thrombocytopenia (HCC) [D69.6] Other Visit Diagnoses:Anemia of chronic illness [D63.8] Cirrhosis 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 ascites, unspecified hepatic cirrhosis type (HCC) [K74.60] Order(s):HIV 1,2 COMBO (AG/AB) [SQHIV12] Order #: [id number] FUTURE IRON + TIBC [SQIRON] Order #: [id number] FUTURE FERRITIN BLD [SQFERR] Order #: [id number] FUTURE RETIC COUNT [SQRETIC] Order #: [id number] FUTURE LD LACTATE DEHYDRO [SQLD6] Order #: [id number] FUTURE HEPATIC FUNCTION PNL [SQHFP] Order #: [id number] FUTURE BILIRUBIN DIRECT BLD [SQCBIL] Order #: [id number] FUTURE HAPTOGLOBIN BLD [SQHAPTO] Order #: [id number] FUTURE HEP C AB IA BLOOD [SQAHCV] Order #: [id number] FUTURE RG DIRECT [SQDAGT] Order #: [id number] FUTURE TYPE + SCREEN [SQTSCR] Order #: [id number] FUTURE OCCULT BLD EXAM-DIAG [SQOB] Order #: [id number] STANDING NM LIVER SPECT [[id number]] Order #: [id number] FUTURE Level of Service: NEW PATIENT VISIT LEVEL 5 [[id number]] Disposition: Return in about 2 weeks (around 11/13/2017). Follow-up and Disposition History Recorded Prescriptions as of 10/30/2017 Sig: SPIRONOLACTONE 50 MG TABLET Take 1 tablet by mouth once d* FERROUS SULFATE 325 MG (65 MG* Take 1 tablet by mouth daily * METOPROLOL TARTRATE 25 MG TAB* Take 1 tablet by mouth twice * LEVOTHYROXINE 25 MCG CAPSULE Take 1 capsule by mouth once * SIMVASTATIN 20 MG TABLET Take 1 tablet by mouth once d* PANTOPRAZOLE 40 MG TABLET,DEL* Take 1 tablet by mouth once d* METAMUCIL ORAL Take by mouth once daily. LORATADINE 10 MG TABLET Take 10 mg by mouth once lilian* ASPIRIN 81 MG TABLET,DELAYED * Take 81 mg by mouth once lilian* INSULIN ASPART U-100 100 UNI* Inject subcutaneously 12 unit* DESOXIMETASONE 0.25 % TOPICAL* Apply thin layer twice daily INSULIN GLARGINE (U-100) 100 * Inject 25 Units subcutaneousl* LANCETS 28 GAUGE Test blood glucose 4 times da* BLOOD SUGAR DIAGNOSTIC STRIPS Test blood glucose 4 times da* PEN NEEDLE, DIABETIC 31 GAUGE* USE WITH INSULIN PENS 4 TIMES* GLIPIZIDE 5 MG TABLET Take 1 tablet by mouth daily * FUROSEMIDE 40 MG TABLET Take 40 mg by mouth every oth* METHYLCELLULOSE (LAXATIVE) 50* Take 500 mg by mouth DAILY. MICONAZOLE NITRATE 2 % TOPICA* Apply 1 application to affect* MECLIZINE 25 MG TABLET Take 1 tablet by mouth three * LACTULOSE 10 GRAM/15 ML ORAL * Take 30 mL by mouth once lilian* RIFAXIMIN 550 MG TABLET Take 1 tablet by mouth twice * Medication notes this encounter SPIRONOLACTONE 50 MG TABLET >> Lisa Zuñiga LPN, LPN 10/30/2017 2:31 PM >> LISA ZUÑIGA More[place] Oct 30, 2017 2:31 PM increased to 100 mg BID 10/28/2017 FUROSEMIDE 40 MG TABLET >> Lisa Zuñiga LPN, LPN 10/30/2017 2:30 PM >> LISA ZUÑIGA Morena Oct 30, 2017 2:30 PM Increased to 80 mg QOD on 10/28/17 Problem List As Of Date 10/30/2017 Noted Resolved Viral gastroenteritis [A08.4] INVALID FOR*09/06/2014 Dehydration [E86.0] INVALID FOR*09/06/2014 Hypothyroidism [E03.9] GERD (gastroesophageal reflux disease) [K21.9] Renal disorder [N28.9] More... 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 History of colonic polyps [Z86.010] INVALID FOR* More... Visit Notes: >> Lisa Zuñiga LPN More[place] Oct 30, 2017 2:32 PM Status: Signed New patient, discuss recent labs and dx: chronic anemia Lisa Zuñiga LPN Encounter Status:Closed by DEION PARDO MD on 10/31/17 PROGRESS Observed: 10/29/2017 Status: COMPLETED Source: [place] 6:25 AM [facility] REPOSITORY HNO ID: [id number] Author: Kayla (Naila) Day Service: (none) Author Type: Nurse Practitioner Type: Progress Notes Filed: 10/29/2017 7:28 AM Note Text: SUBJECTIVE: Hang Meza is a 77 year old male Patient presents with: Establish Care Phlebotomy Patient presents to f/u - overall feeling well. Fell at home in mid September the lights went out - landed on concrete + brief LOC, seen at [facility]. xrays of shoulders and knees done, no CT - denied head trauma. Seeing Dr. Hodges (hepatology) later today. Saw Dr. Ball (nephrology) in September. Aldactone decreased to once daily. Increased iron supplement once daily (from every other day). History of thrombocytopenia thought to be secondary to hepatic function, fe def anemia with improved ferritin, however hgb remains low. No etiology on EGD and colonoscopy 06/10. CURRENT MEDICATIONS: Current Outpatient Prescriptions on File Prior to Visit: spironolactone (ALDACTONE) 50 mg tablet Take 2 tablets by mouth once daily. (Patient taking differently: Take 50 mg by mouth once daily. ) metoprolol tartrate, short acting, (LOPRESSOR) 25 mg tablet Take 1 tablet by mouth twice daily. Levothyroxine 25 mcg cap Take 1 capsule by mouth once daily. ferrous sulfate 325 mg (65 mg iron) tablet Take 1 tablet by mouth every other day. simvastatin (ZOCOR) 20 mg tablet Take 1 tablet by mouth once daily. pantoprazole DR (PROTONIX) 40 mg tablet Take 1 tablet by mouth once daily. 30 minutes before eating. PSYLLIUM HUSK (METAMUCIL ORAL) Take by mouth once daily. loratadine (CLARITIN) 10 mg tablet Take 10 mg by mouth once daily. as needed aspirin, enteric coated (ASPIRIN, ENTERIC COATED) 81 mg EC tablet Take 81 mg by mouth once daily. as needed insulin aspart (NOVOLOG FLEXPEN) 100 unit/mL inpn Inject subcutaneously 12 units with breakfast, 18 units with lunch, 15 units with dinner. Plus SSi 2 units per 50 >150. TDD 75 units.E11.22 desoximetasone (TOPICORT) 0.25 % cream Apply thin layer twice daily insulin glargine (LANTUS) 100 unit/mL (3 mL) inpn Inject 25 Units subcutaneously twice daily. lancets (FREESTYLE LANCETS) 28 gauge misc Test blood glucose 4 times daily blood sugar diagnostic (FREESTYLE TEST) test strip Test blood glucose 4 times daily Insulin [place], Disposable, (BD ULTRAFINE III MINI PEN) 31 gauge x 3/16 ndle USE WITH INSULIN PENS 4 TIMES DAILY glipiZIDE (GLUCOTROL) 5 mg tablet Take 1 tablet by mouth daily before breakfast. furosemide (LASIX) 40 mg tablet Take 40 mg by mouth every other day. Methylcellulose, Laxative, (FIBER THERAPY) 500 mg tab Take 500 mg by mouth DAILY. miconazole (LOTRIMIN AF, DESENEX) 2 % powder Apply 1 application to affected area twice daily. meclizine (ANTIVERT) 25 mg tab Take 1 tablet by mouth three times daily as needed. lactulose (ENULOSE) 10 gram/15 mL solution Take 30 mL by mouth once daily. rifaximin (XIFAXAN) 550 mg tab Take 1 tablet by mouth twice daily. No current facility-administered medications on file prior to visit. PROBLEM LIST: ACTIVE PROBLEM LIST Hypothyroidism Gerd (Gastroesophageal Reflux Disease) Renal Disorder Bph (Benign Prostatic Hyperplasia) Thrombocytopenia (Hcc) Aortic Valve Stenosis, Mild Cirrhosis (Hcc) Ulcerative Esophagitis Dizziness Essential Hypertension Mixed Hyperlipidemia Uncontrolled 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 Chronic Kidney Disease, With Long-Term Current Use of Insulin (Hcc) Acquired Hypothyroidism Anemia of Chronic Illness History of Colonic Polyps ALLERGIES: Review of patient's allergies indicates no known allergies. REVIEW OF SYSTEMS:GENERAL: No weight loss, malaise or fevers NECK: Negative for lumps, goiter, pain and significant neck swelling RESPIRATORY: Negative for cough, hemoptysis, wheezing, COPD, dyspnea or shortness of breath CARDIOVASCULAR: edema - unchanged GI: no n/v/d or constipation MUSCULOSKELETAL: chronic bilateral knee pain - worsening lately ENDOCRINE: SMBG 150-210 averages BP 122/64 (BP Site: Left Arm, BP Position: Sitting, BP Cuff Size: Large Adult) Temp 36.8 ?C (98.3 ?F) (Left Tympanic) Wt 132.5 kg (292 lb) BMI 40.73 kg/m2 General Appearance: Well appearing, alert, in no acute distress, well-hydrated, well nourished., Obese Neck: supple, FROM, no adenopathy, no masses, no carotid bruits Lungs: clear to auscultation, no wheezing or rhonchi Heart: NSR, No murmur Abdomen: Soft, Not tender. + BS. No HSM. No G/R/R, no masses Extremities: Edema: +1 bilateral ankles ASSESSMENT/PLAN: 1. Acquired hypothyroidism - ICD9: 244.9, ICD10: E03.9 (primary diagnosis) - Instructed patient on importance of taking on an empty stomach either first thing in the morning or at bedtime. - continue current dose of Synthroid 0.025 mg 2. Essential hypertension - ICD9: 401.9, ICD10: I10 - good control - Continue current medication(s) - Recheck in 3 months, sooner should new symptoms or problems arise. - Reviewed risks of HTN and principles of treatment - Goal of BP <130/80 3. Type 2 diabetes mellitus with diabetic polyneuropathy, with long-term current use of insulin (HCC) - ICD9: 250.60, 357.2, V58.67, ICD10: E11.42, Z79.4 Controlled- due to check a1c - Continue current medications - f/u with Dr. Lee as scheduled - Blood glucose monitoring on a twice a day schedule - HEMOGLOBIN A1C (POC) - HGB A1C 4. CKD (chronic kidney disease) stage 3, GFR 30-59 ml/min - ICD9: 585.3, ICD10: N18.3 Under care of nephrology, if anemia not improved - refer to hematology - CBC + DIFF 5. Aortic valve stenosis, mild - ICD9: 424.1, ICD10: I35.0 Repeat ECHO 6. Syncope and collapse - ICD9: 780.2, ICD10: R55 7. Syncope, unspecified syncope type - ICD9: 780.2, ICD10: R55 - OUTSIDE VENDOR CARDIAC OUTPATIENT EVENT RECORDER Kayla Bernstein CNP Additional Medical Conditions Dx: Diabetic nephropathy associated with type 2 diabetes mellitus (HCC) Stable Diabetes type 2 and complications based on lab values and symptoms. Continue present treatment plan, control of risk factors, and recheck at least yearly. Additional documentation: Meds reviewed: Insulin Aspart U-100 100 Unit/Ml Subcutaneous Pen, Insulin Glargine (U-100) 100 Unit/Ml (3 Ml) Subcutaneous Pen, Hemoglobin A1C: 7.7 on 05/30/17, Glucose: 212 on 10/10/17,Last GFR: 46 on 05/30/17,Last GFR: 38 on 05/30/17,Last Albumin/Creatinine Ratio: 10 on 05/30/17, Stable based upon recent platelet counts, exam and symptoms. Continue current treatment plan and follow up at least yearly Additional documentation: Pertinent labs- Last Platelet Count: 61 on 08/05/17, Dx: Morbid obesity with BMI of 40.0-44.9, adult (HCC) Stable on review of most recent BMI. Patient counseled on diet and exercise. Additional documentation: The BMI is 40.73 kg/m2. Dx: Cirrhosis (HCC) Stable based upon lab results, exam and symptoms. Continue current treatment plan and follow up at least yearly Additional documentation: Pertinent labs- Last Total Bilirubin: 0.8 on 05/30/17,Last Alk Phos: 39 on 05/30/17,Last AST: 31 on 05/30/17,Last ALT: 21 on 05/30/17, Last edited 10/29/17 06:25 EST by Kayla Bernstein CNP PROTHROMBIN TIME W/INR Collected: 10/28/2017 Status: F Source: [place] 4:10 PM [facility] REPOSITORY TYPE CODE TESTS RESULT OUT OF RANGE REFERENCE UNITS LAB L300.4150 11.7-14.9 SECONDS High PROTIME 17.2 LAB L300.4200 Normal INR 1.4 Performed By: #### L300.3900, L300.4310 #### [facility] [address] [place], [place], [id number] PARTIAL THROMBOPLAST Collected: 10/28/2017 Status: F Source: [place] TIME 4:10 PM [facility] REPOSITORY TYPE CODE TESTS RESULT OUT OF REFERENCE UNITS RANGE LAB L300.4310 24.1-36.2 Seconds High PTT 37.7 Performed By: #### L300.3900, L300.4310 #### [facility] [address] [place], [address] BASIC METABOLIC Collected: 10/28/2017 Status: F Source: [place] PROFILE (BMP) 4:10 PM [facility] REPOSITORY TYPE CODE TESTS RESULT OUT OF RANGE REFERENCE UNITS LAB L501.0100 74-106 mg/dL High GLU 151 Result Comment: Fasting Glucose result greater than or equal to 126 mg/dL suggests DIABETES MELLITUS per A.D.A. criteria. Please note revised GLUCOSE reference range effective 2017. LAB L501.1000 7-18 mg/dL High BUN 37 LAB L501.1100 0.70-1.30 mg/dL High CREAT,SERUM 1.82 Result Comment: The validity of the calculated GFR AND GFRAA in patients over 70 years has not been determined. Clinical correlation is essential. LAB L501.1110 >60 mL/min Low EST GFR 38 Result Comment: Non- GFR Calc LAB L501.1115 >60 mL/min Low EST GFR - AA 47 Result Comment: GFR Calc LAB L501.1300 10-20 RATIO High BUN/CRE 20.3 LAB L501.2200 8.5-10.1 mg/dL Low CA 8.3 LAB L501.5300 136-145 mmol/L NA Normal 140 LAB L501.5600 3.5-5.1 mmol/L K Normal 4.7 LAB L501.5900 98-107 mmol/L CL Normal 106 LAB L501.6100 21.0-32.0 mmol/L Normal CO2 25.0 LAB L501.6200 5-15 Normal GAP 9 Performed By: #### L500.2500 #### [facility] [address] [place], [place], [id number] AFP, TUMOR MARKER Collected: 10/28/2017 Status: F Source: [place] 4:10 PM [facility] REPOSITORY Order Comment: Is Patient ? N TYPE CODE TESTS RESULT OUT OF RANGE REFERENCE UNITS LAB L3300.0700 0.0-8.3 ng/mL Normal AFP TUMOR 3.9 2253 Result Comment: [email or web address] ECLIA methodology Performed at: [facility] [address], [place], [place] [id number] Nursing Home Social Worker: Felipe Hunter PhD, Phone: [phone] Performed By: #### L3300.0700 #### [facility] (refer to report for specific site) refer to report for address and phone number CBC AND DIFFERENTIAL Collected: 10/28/2017 Status: F Source: [place] 1:05 PM [facility] REPOSITORY TYPE CODE TESTS RESULT OUT OF REFERENCE UNITS RANGE LAB WBC 3.70-11.00 k/uL WBC 5.11 LAB RBC 4.20-6.00 m/uL Low RBC 2.02 LAB HGB 13.0-17.0 g/dL Low Hemoglobin 6.8 LAB HCT 39.0-51.0 % Low Hematocrit 23.8 LAB MCV 80.0-100.0 fL MCV High 117.8 Result Comment: Reviewed LAB MCH 26.0-34.0 pG MCH 33.7 LAB MCHC 30.5-36.0 g/dL MCHC 28.6 Low LAB RDWCV 11.5-15.0 % 17.3 High RDW-CV LAB PLTCT 150-400 k/uL Platelet Count Platelets Clumped, Estimate Low Result Comment: Result checked and verified No clot detected. Reviewed LAB MPV 9.0-12.7 fL MPV Unable to report LAB ANEUT % Neut% 66.6 LAB AANEUT 1.45-7.50 k/uL Abs Neut 3.40 LAB ALYMP % Lymph% 18.6 LAB AALYMP 1.00-4.00 k/uL Low Abs Lymph 0.95 LAB AMONO % [place]% 12.1 LAB AAMONO <0.87 k/uL Abs [place] 0.62 LAB AEOS % Eosin% 2.5 LAB AAEOS <0.46 k/uL Abs Eosin 0.13 LAB ABASO % Baso% 0.2 LAB AABASO <0.11 k/uL Abs Baso <0.03 LAB AUNRBC 0 /100 WBC NRBCs High 0.4 LAB ABNRBC <0.01 k/uL High Absolute nRBC 0.02 LAB DTYP DTYPE Auto Diff LAB REVW Review Done Performed By: #### CBCDIF #### [facility] [address] [address] HEMOGLOBIN A1C Collected: 10/28/2017 Status: F Source: [place] 1:05 PM [facility] REPOSITORY TYPE CODE TESTS RESULT OUT OF REFERENCE UNITS RANGE LAB HGBA1C 4.3-5.6 % High Hemoglobin A1c 6.0 LAB HBA0 mg/dL Est. Average Glucose 126 Result Comment: eAG: (Estimated average glucose) is a calculated value from HgbA1c and is business services representative of the average blood glucose level in the last 2-3 month period. Performed By: #### HBA1C #### [facility] [address] [place], [place] [address] PROCEDURE Observed: 10/28/2017 Status: COMPLETED Source: [place] 11:12 AM [facility] REPOSITORY HNO ID: [id number] Author: Pal Lobo Service: (none) Author Type: Physician Type: Procedures Filed: 12/16/2017 2:06 PM Note Text: Agree with the listed interpretations. Symptoms noted correlated with sinus and sinus tachycardia with PVCs and PACs. Pal Lobo MD Cardiac Electrophysiology 12/16/2017 [facility] Location NAME: HANG MEZA : 1940 ENROLLMENT: 11/04/2017 - 12/03/2017 CNOV Observed: 10/28/2017 Status: COMPLETED Source: [place] 11:00 AM [facility] REPOSITORY Office Visit ([facility]) HANG MEZA ([id number]) 1940 M Date Time Provider Department 10/28/17 11:00 AM KAYLA BERNSTEIN (NAILA) [facility] During your visit today, we recorded the following information about you: Temperature Blood pressure Weight 98.3 degrees 122/64 132.5 kg Mago Rebolledo Ma 10/28/2017 12:14 PM Signed Automated HGB A1C done, results given to Kayla. Mago Gerber, RN, RN 10/28/2017 12:26 PM Signed Hang Meza presents in office today for Lab Draw. Ordering Provider: Kayla Bernstein CNP Test (s) ordered: CBC Glycosylated HGB (AiC) Phlebotomy was performed, accessing right antecubital vein. Needle removed intact. Dressing secured. Patient denies discomfort, dizziness, light-headedness or weakness and left the department without assist. ANAND Clemons, [place] 10/29/2017 7:28 AM Signed SUBJECTIVE: Hang Meza is a 77 year old male Patient presents with: Establish Care Phlebotomy Patient presents to f/u - overall feeling well. Fell at home in mid September ANDqu;the lights went outANDquot; - landed on concrete + brief LOC, seen at [facility]. xrays of shoulders and knees done, no CT - denied head trauma. Seeing Dr. Hodges (hepatology) later today. Saw Dr. Ball (nephrology) in September. Aldactone decreased to once daily. Increased iron supplement once daily (from every other day). History of thrombocytopenia thought to be secondary to hepatic function, fe def anemia with improved ferritin, however hgb remains low. No etiology on EGD and colonoscopy 06/10. CURRENT MEDICATIONS: Current Outpatient Prescriptions on File Prior to Visit: spironolactone (ALDACTONE) 50 mg tablet Take 2 tablets by mouth once daily. (Patient taking differently: Take 50 mg by mouth once daily. ) metoprolol tartrate, short acting, (LOPRESSOR) 25 mg tablet Take 1 tablet by mouth twice daily. Levothyroxine 25 mcg cap Take 1 capsule by mouth once daily. ferrous sulfate 325 mg (65 mg iron) tablet Take 1 tablet by mouth every other day. simvastatin (ZOCOR) 20 mg tablet Take 1 tablet by mouth once daily. pantoprazole DR (PROTONIX) 40 mg tablet Take 1 tablet by mouth once daily. 30 minutes before eating. PSYLLIUM HUSK (METAMUCIL ORAL) Take by mouth once daily. loratadine (CLARITIN) 10 mg tablet Take 10 mg by mouth once daily. as needed aspirin, enteric coated (ASPIRIN, ENTERIC COATED) 81 mg EC tablet Take 81 mg by mouth once daily. as needed insulin aspart (NOVOLOG FLEXPEN) 100 unit/mL inpn Inject subcutaneously 12 units with breakfast, 18 units with lunch, 15 units with dinner. Plus SSi 2 units per 50 ANDgt;150. TDD 75 units.E11.22 desoximetasone (TOPICORT) 0.25 % cream Apply thin layer twice daily insulin glargine (LANTUS) 100 unit/mL (3 mL) inpn Inject 25 Units subcutaneously twice daily. lancets (FREESTYLE LANCETS) 28 gauge misc Test blood glucose 4 times daily blood sugar diagnostic (FREESTYLE TEST) test strip Test blood glucose 4 times daily Insulin [place], Disposable, (BD ULTRAFINE III MINI PEN) 31 gauge x 3/16ANDquot; ndle USE WITH INSULIN PENS 4 TIMES DAILY glipiZIDE (GLUCOTROL) 5 mg tablet Take 1 tablet by mouth daily before breakfast. furosemide (LASIX) 40 mg tablet Take 40 mg by mouth every other day. Methylcellulose, Laxative, (FIBER THERAPY) 500 mg tab Take 500 mg by mouth DAILY. miconazole (LOTRIMIN AF, DESENEX) 2 % powder Apply 1 application to affected area twice daily. meclizine (ANTIVERT) 25 mg tab Take 1 tablet by mouth three times daily as needed. lactulose (ENULOSE) 10 gram/15 mL solution Take 30 mL by mouth once daily. rifaximin (XIFAXAN) 550 mg tab Take 1 tablet by mouth twice daily. No current facility-administered medications on file prior to visit. PROBLEM LIST: ACTIVE PROBLEM LIST Hypothyroidism Gerd (Gastroesophageal Reflux Disease) Renal Disorder Bph (Benign Prostatic Hyperplasia) Thrombocytopenia (Hcc) Aortic Valve Stenosis, Mild Cirrhosis (Hcc) Ulcerative Esophagitis Dizziness Essential Hypertension Mixed Hyperlipidemia Uncontrolled 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 Chronic Kidney Disease, With Long-Term Current Use of Insulin (Hcc) Acquired Hypothyroidism Anemia of Chronic Illness History of Colonic Polyps ALLERGIES: Review of patient's allergies indicates no known allergies. REVIEW OF SYSTEMS:GENERAL: No weight loss, malaise or fevers NECK: Negative for lumps, goiter, pain and significant neck swelling RESPIRATORY: Negative for cough, hemoptysis, wheezing, COPD, dyspnea or shortness of breath CARDIOVASCULAR: edema - unchanged GI: no n/v/d or constipation MUSCULOSKELETAL: chronic bilateral knee pain - worsening lately ENDOCRINE: SMBG 150-210 averages BP 122/64 (BP Site: Left Arm, BP Position: Sitting, BP Cuff Size: Large Adult) Temp 36.8 ?C (98.3 ?F) (Left Tympanic) Wt 132.5 kg (292 lb) BMI 40.73 kg/m2 General Appearance: Well appearing, alert, in no acute distress, well-hydrated, well nourished., Obese Neck: supple, FROM, no adenopathy, no masses, no carotid bruits Lungs: clear to auscultation, no wheezing or rhonchi Heart: NSR, No murmur Abdomen: Soft, Not tender. + BS. No HSM. No G/R/R, no masses Extremities: Edema: +1 bilateral ankles ASSESSMENT/PLAN: 1. Acquired hypothyroidism - ICD9: 244.9, ICD10: E03.9 (primary diagnosis) - Instructed patient on importance of taking on an empty stomach either first thing in the morning or at bedtime. - continue current dose of Synthroid 0.025 mg 2. Essential hypertension - ICD9: 401.9, ICD10: I10 - good control - Continue current medication(s) - Recheck in 3 months, sooner should new symptoms or problems arise. - Reviewed risks of HTN and principles of treatment - Goal of BP ANDlt;130/80 3. Type 2 diabetes mellitus with diabetic polyneuropathy, with long-term current use of insulin (HCC) - ICD9: 250.60, 357.2, V58.67, ICD10: E11.42, Z79.4 Controlled- due to check a1c - Continue current medications - f/u with Dr. Lee as scheduled - Blood glucose monitoring on a twice a day schedule - HEMOGLOBIN A1C (POC) - HGB A1C 4. CKD (chronic kidney disease) stage 3, GFR 30-59 ml/min - ICD9: 585.3, ICD10: N18.3 Under care of nephrology, if anemia not improved - refer to hematology - CBC + DIFF 5. Aortic valve stenosis, mild - ICD9: 424.1, ICD10: I35.0 Repeat ECHO 6. Syncope and collapse - ICD9: 780.2, ICD10: R55 7. Syncope, unspecified syncope type - ICD9: 780.2, ICD10: R55 - OUTSIDE VENDOR CARDIAC OUTPATIENT EVENT RECORDER Kayla Bernstein CNP Additional Medical Conditions Dx: Diabetic nephropathy associated with type 2 diabetes mellitus (HCC) Stable Diabetes type 2 and complications based on lab values and symptoms. Continue present treatment plan, control of risk factors, and recheck at least yearly. Additional documentation: Meds reviewed: Insulin Aspart U-100 100 Unit/Ml Subcutaneous Pen, Insulin Glargine (U-100) 100 Unit/Ml (3 Ml) Subcutaneous Pen, Hemoglobin A1C: 7.7 on 05/30/17, Glucose: 212 on 10/10/17,Last GFR: 46 on 05/30/17,Last GFR: 38 on 05/30/17,Last Albumin/Creatinine Ratio: 10 on 05/30/17, Stable based upon recent platelet counts, exam and symptoms. Continue current treatment plan and follow up at least yearly Additional documentation: Pertinent labs- Last Platelet Count: 61 on 08/05/17, Dx: Morbid obesity with BMI of 40.0-44.9, adult (HCC) Stable on review of most recent BMI. Patient counseled on diet and exercise. Additional documentation: The BMI is 40.73 kg/m2. Dx: Cirrhosis (HCC) Stable based upon lab results, exam and symptoms. Continue current treatment plan and follow up at least yearly Additional documentation: Pertinent labs- Last Total Bilirubin: 0.8 on 05/30/17,Last Alk Phos: 39 on 05/30/17,Last AST: 31 on 05/30/17,Last ALT: 21 on 05/30/17, Last edited 10/29/17 06:25 EST by Kayla Bernstein CNP Referring Provider: KAYLA BERNSTEIN ([employer]ARNESS INSTALLER) [[id number]] Allergies As of Date: 10/28/2017 (No Known Allergies) Date Reviewed: 10/28/2017 Reviewed by: Mago Rebolledo Ma - Fully Assessed Reason for Visit: Establish Care [42] Phlebotomy [1172] Reason For Visit History Recorded Primary Visit Diagnosis:Acquired hypothyroidism [E03.9] Other Visit Diagnoses:Essential hypertension [I10] Type 2 diabetes mellitus with diabetic polyneuropathy, with long-term current use of insulin (HCC) [E11.42, Z79.4] CKD (chronic kidney disease) stage 3, GFR 30-59 ml/min [N18.3] Aortic valve stenosis, mild [I35.0] Syncope and collapse [R55] Syncope, unspecified syncope type [R55] Order(s):ECHO [997972] Order #: [id number]: 1 FUTURE OUTSIDE VENDOR CARDIAC OUTPATIENT EVENT RECORDER [] Order #: [id number]: 1 CBC + DIFF [SQCBCDIF] Order #: [id number] FUTURE CBC + DIFF [SQCBCDIF] Order #: [id number]. #:[id number] HGB A1C [HFCEY2K] Order #: [id number] FUTURE spironolactone (ALDACTONE) 50 mg tabletTake 1 tablet by mouth once daily.Disp: Rfl: ferrous sulfate 325 mg (65 mg iron) tabletTake 1 tablet by mouth daily with breakfast.Disp: Rfl: Prescriptions as of 10/28/2017 Sig: SPIRONOLACTONE 50 MG TABLET Take 1 tablet by mouth once d* FERROUS SULFATE 325 MG (65 MG* Take 1 tablet by mouth daily * METOPROLOL TARTRATE 25 MG TAB* Take 1 tablet by mouth twice * LEVOTHYROXINE 25 MCG CAPSULE Take 1 capsule by mouth once * SIMVASTATIN 20 MG TABLET Take 1 tablet by mouth once d* PANTOPRAZOLE 40 MG TABLET,DEL* Take 1 tablet by mouth once d* METAMUCIL ORAL Take by mouth once daily. LORATADINE 10 MG TABLET Take 10 mg by mouth once lilian* ASPIRIN 81 MG TABLET,DELAYED * Take 81 mg by mouth once lilian* INSULIN ASPART U-100 100 UNI* Inject subcutaneously 12 unit* DESOXIMETASONE 0.25 % TOPICAL* Apply thin layer twice daily INSULIN GLARGINE (U-100) 100 * Inject 25 Units subcutaneousl* LANCETS 28 GAUGE Test blood glucose 4 times da* BLOOD SUGAR DIAGNOSTIC STRIPS Test blood glucose 4 times da* PEN NEEDLE, DIABETIC 31 GAUGE* USE WITH INSULIN PENS 4 TIMES* GLIPIZIDE 5 MG TABLET Take 1 tablet by mouth daily * FUROSEMIDE 40 MG TABLET Take 40 mg by mouth every oth* METHYLCELLULOSE (LAXATIVE) 50* Take 500 mg by mouth DAILY. MICONAZOLE NITRATE 2 % TOPICA* Apply 1 application to affect* MECLIZINE 25 MG TABLET Take 1 tablet by mouth three * LACTULOSE 10 GRAM/15 ML ORAL * Take 30 mL by mouth once lilian* RIFAXIMIN 550 MG TABLET Take 1 tablet by mouth twice * Problem List As Of Date 10/28/2017 Noted Resolved Viral gastroenteritis [A08.4] INVALID FOR*09/06/2014 Dehydration [E86.0] INVALID FOR*09/06/2014 Hypothyroidism [E03.9] GERD (gastroesophageal reflux disease) [K21.9] Renal disorder [N28.9] More... 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 History of colonic polyps [Z86.010] INVALID FOR* More... Visit Notes: >> Mago Rebolledo Ma FriOct 28, 2017 12:13 PM Status: Signed Automated HGB A1C done, results given to Kayla. Mago Rebolledo Ma >> Roberta Vanegas) ANAND Gerber FriOct 28, 2017 12:25 PM Status: Signed Hang Meza presents in office today for Lab Draw. Ordering Provider: Kayla Bernstien CNP Test (s) ordered: CBC Glycosylated HGB (AiC) Phlebotomy was performed, accessing right antecubital vein. Needle removed intact. Dressing secured. Patient denies discomfort, dizziness, light-headedness or weakness and left the department without assist. Roberta Gerber, ANAND Prescriptions ordered this encounter Disp Refills Start End SPIRONOLACTONE 50 MG TABLET 10/29/2017 Class: Med Update Route: ORAL Sig: Take 1 tablet by mouth once daily. FERROUS SULFATE 325 MG (65 MG IRON) * 10/29/2017 Class: Med Update Route: ORAL Sig: Take 1 tablet by mouth daily with breakfast. Medications Discontinued During This Encounter spironolactone (ALDACTONE) 50 mg tab* 60 t* 3 10/13/2017 10/29/2017 Route: ORAL Sig: Take 2 tablets by mouth once daily. Patient taking differently: Take 50 mg by mouth once daily. Disc: Reason for discontinue is not on file. ferrous sulfate 325 mg (65 mg iron) * 30 t* 1 08/12/2017 10/29/2017 Route: ORAL Sig: Take 1 tablet by mouth every other day. Disc: Reason for discontinue is not on file. Encounter Status:Closed by KAYLA BERNSTEIN CNP on 10/29/17 CBC-COMPLETE BLOOD CNT Collected: 10/10/2017 Status: F Source: [place] NO DIFF 10:28 AM [facility] REPOSITORY TYPE CODE TESTS RESULT OUT OF RANGE REFERENCE UNITS LAB L100.1000 4.4-11.0 K/mm3 Normal WBC 5.7 LAB L100.1200 4.6-6.2 M/mm3 Low RBC 2.38 LAB L100.1300 13.0-16.5 g/dl Low HGB 7.9 LAB L100.1400 40-54 % Low HCT 25.6 LAB L100.1500 80-94 fL High MCV 107.6 LAB L100.1600 27.0-32.0 pg High MCH 33.2 LAB L100.1700 32-36 g/gl Low MCHC 30.9 LAB L100.1810 11.6-14.6 % High RDW CV 16.0 LAB L100.1820 35.1-43.9 fl High RDW SD 61.4 LAB L100.1900 150-450 K/mm3 Low PLT 107 LAB L100.2000 6.2-12.0 fl Normal MPV 12.0 Performed By: #### L100.0500 #### [facility] [address] [place], [place], [address] PROTEIN+CREATININE Collected: Status: F Source: [facility] 10/10/2017 10:28 AM [facility] REPOSITORY TYPE CODE TESTS RESULT OUT OF RANGE REFERENCE UNITS LAB L501.1200 NO RANGE EST. mg/dL Normal UR CREAT 200.00 LAB L501.1930 <11.9 mg/dL High 22.3 PROTEIN,UR.R AN. LAB L501.1940 0-200 mg/g CRE Normal PROT:CRE 112 RATIO Performed By: #### L501.0900 #### [facility] [address] [place], [address] RENAL PROFILE Collected: 10/10/2017 Status: F Source: [place] 10:28 AM [facility] REPOSITORY TYPE CODE TESTS RESULT OUT OF RANGE REFERENCE UNITS LAB L501.0100 74-106 mg/dL High GLU 212 Result Comment: Glucose result greater than or equal to 200 mg/dL suggests DIABETES MELLITUS per A.D.A. criteria. Please note revised GLUCOSE reference range effective 2017. LAB L501.1000 7-18 mg/dL High BUN 31 LAB L501.1100 0.70-1.30 mg/dL High CREAT,SERUM 1.84 Result Comment: The validity of the calculated GFR AND GFRAA in patients over 70 years has not been determined. Clinical correlation is essential. LAB L501.1110 >60 mL/min Low EST GFR 38 Result Comment: Non- GFR Calc LAB L501.1115 >60 mL/min Low EST GFR - AA 46 Result Comment: GFR Calc LAB L501.1300 10-20 RATIO Normal BUN/CRE 16.8 LAB L501.1800 3.2-5.0 g/dL Low ALB 3.1 LAB L501.2200 8.5-10.1 mg/dL Low CA 8.0 LAB L501.2300 2.5-4.9 mg/dL Normal PHOS 3.1 LAB L501.5300 136-145 mmol/L Low NA 134 LAB L501.5600 3.5-5.1 mmol/L K Normal 4.4 LAB L501.5900 98-107 mmol/L CL Normal 101 LAB L501.6100 21.0-32.0 mmol/L Normal CO2 23.0 Performed By: #### L500.3600 #### [facility] [address] [facility] [place], [address] PTHIN Collected: 10/10/2017 Status: F Source: [place] 10:28 AM [facility] REPOSITORY TYPE CODE TESTS RESULT OUT OF RANGE REFERENCE UNITS LAB L509.1000 18.4-80.1 pg/mL Normal PTHIN 33.4 Result Comment: Please Note: PTH INTACT METHOD AND REFERENCE RANGE CHANGE Effective 08/13/2017. Performed By: #### L509.1000 #### [facility] [address] [facility] [place], [address] EMERGENCY DEPARTMENT Observed: 10/05/2017 Status: F Source: [place] SUMMARY 4:12 PM [facility] REPOSITORY [facility] Medical Records Department [address] [facility] [place] [address] Emergency Department Summary 10/05/17 1602 MR#: [id number] Acct: [id number] Name: HANG MEZA Rep #: [id number] : 1940 77 From: Ronen Vance MD PCP: Kayla Bernstein [employer] INSTALLER-C Status: REG ER - ER Visit Summary Date of Service: 10/05/17 Chief Complaint: Visiting yesterday. He fell when he was outside secondary to icy conditions. History of Present Illness: The patient is a 77 M had a mechanical fall secondary to icy conditions. He remembers falling. He members waking up on the ground. He presents today because of increased headache, right shoulder and left knee pain. He has had nausea and vomiting 2. He is on no antiplatelet or anticoagulant. He does have history of cirrhosis of the liver and states he bruises easily. He denies any hematemesis, melena hematochezia. He denies any double vision, blurred vision loss of vision. Denies trouble with speech or swallowing. Denies ringing in his ears. Denies bleeding from his nose. He denies any chest pain, palpitations, orthopnea or PND. He denies shortness of breath, cough, dyspnea on exertion. He does complain of abdominal wall pain. Per review of old records he has history of type 2 diabetes requiring insulin, hypertension, hyperlipidemia, end-stage renal disease (stage III), diabetic neuropathy, chronic anemia and hypothyroidism. Physical Examination: Patient's vital signs are noted and remarkable blood pressure of 167/70. Head is atraumatic normocephalic. Pupils are equal round reactive. Extraocular muscles are intact. TMs are pearly white with landmarks noted. Nares patent with no drainage. Posterior pharynx without erythema or exudate. Uvula is midline. There is no dysphonia or dysphasia. Trachea is midline. There is no stridor with auscultation of the neck. There is no clinical findings of basal skull fracture. There is no pain the patient's cervical spine. He does have pain the patient over the proximal humerus. Internal/external rotation causes discomfort as well as abduction. Axillary, median, radial and ulnar function intact. Heart is regular without murmur, gallop or rub. S1 and S2 are normal. Lungs are clear to auscultation with good movement of air bilaterally. Abdomen is prominent with multiple bruises and abrasions noted. There is no guarding or peritoneal findings. He has no pain the patient the pelvis. Examination of the right lower extremity reveals no evidence of trauma with no pain the patient over the greater trochanteric region, patella, joint line, lateral medial malleolus or foot. Examination left lower extremity reveals no pain patient of the greater trochanteric region. There is soft tissue swelling with ecchymosis and pain palpation over the patella. Difficult to determine whether this is soft tissue swelling versus an effusion. He has full extension and flexion. There is no laxity with varus valgus stress testing. Yana's test was negative. There is no pain the patient the lateral medial malleolus. He does have palpable pulses upper and lower extremity. They are diminished lower extremity. GCS is 15. Patient is alert and oriented 3. Motor is 5/5. Sensation is intact. DTRs are symmetric without clonus or Babinski. Cranial nerves II through XII are intact. Finger to nose to finger was performed adequately. Test Results: The head reveals no acute process per radiologist read and my review. Three-view x-ray the shoulder interpreted by me reveals significant arthritic changes no evidence of fracture. Or view x-ray of the knee reveals significant arthritic changes with no effusion or fracture noted. Hemoglobin is 8.1 with a hematocrit of 26.2. Platelet counts 95,000. He has had low hemoglobin is in the past. The most recent hemoglobin was 6 months ago was 9.1. Glucose is 183 with a creatinine of 1.84. INR is 1.4. Prior creatinine was 1.59 on March 25, 2017. Emergency Department Course and Treatment: Patient had fall with loss of conscious and the fact that he is rated in the age of 77 per the [place] [address] head rule and the [place] rule radiologic imaging is warranted. Because he has limited range of motion of the shoulder with pain the patient with proximal humerus 8 x-ray was obtained to rule out fracture. Because of the soft tissue swelling with discoloration and pain palpation over the left patella and x-ray was obtained. Because he appears pale CBC was obtained and to assess his platelet count. Since he has history of cirrhosis with history of bruising easily a PT/INR was obtained which was unremarkable. Treatment Plan: Ice to areas of discomfort and [place] since NSAIDs are contraindicated in this patient for numerous reasons. Disposition: To home with daughter Impression: 1. Concussion with loss of consciousness encounter 2. Left knee contusion initial encounter 3. Right shoulder contusion initial encounter 4. Anemia with thrombus cytopenia secondary to cirrhosis of liver, chronic 5. Hyperglycemia type II diabetic 6. End-stage renal disease chronic This note was generated with [employer] software. It may contain incorrect words, spelling, and punctuation that were not noted in review of the chart prior to signing ED Disposition - Plan for ED Patient: Disposition: Home or Assisted Living Chief Complaint: Fall Instructions: ED Prevention Fall, ED Concussion, ED Contusion Lower Ext, ED Contusion Shoulder Prescriptions: Hydrocodone Bitart/Apap 5-325 [[place] 5MG-325MG] 1 tab PO Q6H PRN PRN 4 Days #14 tab PRN Reason: Pain Referrals: Kayla Bernstein, ALBERTO [Primary Care Provider] - 1 Week if not improving What to do if you have Problems For any increased pain, shortness of breath, bleeding, nausea or vomiting, chest pain, or any unexpected problems, contact your Primary Care Provider. Call [facility] ([phone]) or report to the closest Emergency Room. Call 911 if necessary. 10/05/17 1612 <Electronically signed by Ronen Vance MD> Date Ronen Vance MD Cosigner Signature (If Indicated): Date CC: Kayla Bernstein CBC-COMPLETE BLOOD CNT Collected: 10/05/2017 Status: F Source: [place] NO DIFF 3:06 PM [facility] REPOSITORY TYPE CODE TESTS RESULT OUT OF RANGE REFERENCE UNITS LAB L100.1000 4.4-11.0 K/mm3 Normal WBC 6.3 LAB L100.1200 4.6-6.2 M/mm3 Low RBC 2.43 LAB L100.1300 13.0-16.5 g/dl Low HGB 8.1 LAB L100.1400 40-54 % Low HCT 26.2 LAB L100.1500 80-94 fL High MCV 107.8 LAB L100.1600 27.0-32.0 pg High MCH 33.3 LAB L100.1700 32-36 g/gl Low MCHC 30.9 LAB L100.1810 11.6-14.6 % High RDW CV 15.8 LAB L100.1820 35.1-43.9 fl High RDW SD 61.5 LAB L100.1900 150-450 K/mm3 Low PLT 95 LAB L100.2000 6.2-12.0 fl Normal MPV 11.7 Performed By: #### L100.0500 #### [facility] [address] [facility]. [place], [place], [address] BASIC METABOLIC Collected: 10/05/2017 Status: F Source: [place] PROFILE (BMP) 3:06 PM [facility] REPOSITORY TYPE CODE TESTS RESULT OUT OF RANGE REFERENCE UNITS LAB L501.0100 74-106 mg/dL High GLU 183 Result Comment: Fasting Glucose result greater than or equal to 126 mg/dL suggests DIABETES MELLITUS per A.D.A. criteria. Please note revised GLUCOSE reference range effective 2017. LAB L501.1000 7-18 mg/dL High BUN 34 LAB L501.1100 0.70-1.30 mg/dL High CREAT,SERUM 1.88 Result Comment: The validity of the calculated GFR AND GFRAA in patients over 70 years has not been determined. Clinical correlation is essential. LAB L501.1110 >60 mL/min Low EST GFR 37 Result Comment: Non- GFR Calc LAB L501.1115 >60 mL/min Low EST GFR - AA 45 Result Comment: GFR Calc LAB L501.1255 ml/min Normal Estimated CRCL 32.38 LAB L501.1300 10-20 RATIO Normal BUN/CRE 18.1 LAB L501.2200 8.5-10 mg/dL Normal .1 CA 8.5 LAB L501.5300 136-14 mmol/L Normal 5 NA 140 LAB L501.5600 3.5-5. mmol/L Normal 1 K 4.8 LAB L501.5900 98-107 mmol/L Normal CL 106 LAB L501.6100 21.0-3 mmol/L Normal 2.0 CO2 25.0 LAB L501.6200 5-15 Normal GAP 9 Performed By: #### L500.2500 #### [facility] [address] [facility] [place], [place], [address] PROTHROMBIN TIME W/INR Collected: 10/05/2017 Status: F Source: [place] 3:06 PM [facility] REPOSITORY TYPE CODE TESTS RESULT OUT OF RANGE REFERENCE UNITS LAB L300.4150 11.7-14.9 SECONDS High PROTIME 16.5 LAB L300.4200 Normal INR 1.4 Performed By: #### L300.3900 #### [facility] [address] [place], [address] BRAIN/HEAD WITHOUT Observed: 10/05/2017 Status: F Source: [place] CONTRAST 2:56 PM [facility] REPOSITORY [facility] Imaging Services [address] [address] Brain/Head without Contrast MR#: [id number] Acct: [id number] Name: HANG MEZA Rep #: [id number] : 1940 M 77 From: Jose A Tarango DO PCP: Kayla Bernstein HARNESS INSTALLERAdriel Status: PRE ER Study: Brain/Head without Contrast Date of Exam: 10/05/17 Exam# [id number] Ordering Dr: Ronen Vance MD STUDY: CT BRAIN WITHOUT CONTRAST REASON FOR EXAM: Male, 77 years old. Fall yesterday, possible syncope. RADIATION DOSAGE (If Supplied By Facility): CTDIvol = ( 44.99 ) mGy, DLP = ( 796.11 ) mGycm TECHNIQUE: Transaxial CT imaging of the brain was performed without administration of intravenous contrast material. Individualized dose optimization techniques were used for this CT. COMPARISON: None. FINDINGS: Normal soft tissue structures. Normal calvarium. There is moderate cerebral atrophy with widening of the extra- axial spaces and ventricular dilatation. There are areas of decreased attenuation within the white matter tracts of the supratentorial brain, consistent with microvascular disease changes. There are small punctate calcifications of the basal ganglia which are seen in the aging brain as a normal variant. Normal brainstem. Normal cerebellum. There is no intracranial hemorrhage. There are no findings of an acute ischemic infarction. Normal visualized paranasal sinuses. CT/Brain/Head without Contrast IMPRESSION: Senescent changes with no evidence of acute intracranial bleed, mass or ischemia. Electronically Signed: Jose A DO Hema at 15:44 EST , Service support , CC: Kayla Bernstein; Ronen Vance MD Wicker Worker: Signed KNEE 4 OR MORE Observed: 10/05/2017 Status: F Source: [place] VIEWS 2:56 PM [facility] REPOSITORY [facility] Imaging Services [address] [place] [address] Knee 4 or More Views MR#: [id number] Acct: [id number] Name: HANG MEZA Rep #: [id number] : 1940 M 77 From: Farhat Addison MD PCP: Kayla Bernstein Status: PRE ER Study: Knee 4 or More Views Date of Exam: 10/05/17 Exam# [id number] Ordering Dr: Ronen Vance MD STUDY: X-RAY - LEFT KNEE REASON FOR EXAM: Male, 77 years old. Fall yesterday with bruising and pain. TECHNIQUE: 4 view(s) of the knee. COMPARISON: None. FINDINGS: There is generalized osteopenia. There is mild arthrosis of the medial and lateral femorotibial compartments. There is moderate arthrosis of the patellofemoral compartment with lateral tilt and subluxation of the patella. No acute abnormalities are identified. RAD/Knee 4 or More Views IMPRESSION: Osteopenia with tricompartmental arthrosis. No acute pathology. Electronically Signed: Farhat Addison MD at 15:52 EST , Service support , CC: Kayla Vance MD Wicker Worker: Signed SHOULDER MIN 2 VIEWS Observed: 10/05/2017 Status: F Source: [place] 2:56 PM [facility] REPOSITORY [facility] Imaging Services [address] [place] [address] Shoulder min 2 Views MR#: [id number] Acct: [id number] Name: HANG MEZA Rep #: [id number] : 1940 M 77 From: Farhat Addison MD PCP: Kayla Bernstein Status: PRE ER Study: Shoulder min 2 Views Date of Exam: 10/05/17 Exam# [id number] Ordering Dr: Ronen Vance MD STUDY: X-RAY - RIGHT SHOULDER REASON FOR EXAM: Male, 77 years old. Fall yesterday. Pain. TECHNIQUE: 5 view(s) of the shoulder. COMPARISON: None. FINDINGS: There is generalized osteopenia. There is mild arthrosis of the glenohumeral and acromioclavicular joints. The soft tissue structures are unremarkable. Normal visualized pulmonary apex. RAD/Shoulder min 2 Views IMPRESSION: Osteopenia with arthrosis of the acromioclavicular and glenohumeral joints. No acute osseous abnormality. Electronically Signed: Farhat Addison MD at 15:56 EST , Service support , CC: Kayla Vance MD Wicker Worker: Signed OBSOLETE Observed: 09/05/2017 Status: COMPLETED Source: [place] 12:00 AM [facility] REPOSITORY Refill [facility] DERRICKHANG SILVERIO ([id number]) 1940 M Date Time Provider Department 09/05/17 KAYLA BERNSTEIN (HARNESS INSTALLER) [facility] During your visit today, we recorded the following information about you: Mago Amaury Cedeno 09/05/2017 11:24 AM Signed Patient calls for medication refill today. PCP is Kayla Bernstein CNP. Patient was last seen August 05, 2017. Last Blood work was May 30, 2017. Pending Prescriptions Disp Refills LEVOTHYROXINE 25 MCG CAPSULE 30 capsule 3 Sig: Take 1 capsule by mouth once daily. DORCAS: No Glucose (mg/dL) Date Value 05/30/2017 158 Potassium (mmol/L) Date Value 05/30/2017 4.8 Sodium (mmol/L) Date Value 05/30/2017 140 Chloride (mmol/L) Date Value 05/30/2017 102 CO2 (mmol/L) Date Value 05/30/2017 25 Creatinine (mg/dL) Date Value 05/30/2017 1.75 BUN (mg/dL) Date Value 05/30/2017 36 Anion Gap (mmol/L) Date Value 05/30/2017 13 Calcium (mg/dL) Date Value 05/30/2017 8.7 Lab Results Component Value Date HBA1C 7.7 05/30/2017 HBA1C 7.3 11/05/2016 HBA1C 7.7 07/23/2016 HBA1C 8.6 02/09/2016 HBA1C 10.1 11/17/2015 PT INR Date Value Ref Range Status 12/04/2015 1.2 0.8 - 1.2 Final Comment: The PT/INR can be used to monitor the therapeutic effect of oral anticoagulants, such as warfarin. The recommended therapeutic range is an INR of 2.0 to 3.0 for most applications, including treatment and prevention of venous thrombosis, treatment of pulmonary embolism, prevention of strokes/TIA in patients with atrial fibrillation, prevention and treatment of thrombosis in patients with a lupus anticoagulant and prevention of systemic embolization in patients with heart valve disorders. There are certain conditions where clinicians may decide to use a lower or higher therapeutic range eg. 1.5 to 1.9 for secondary prevention of idiopathic venous thromboembolism and an INR 2.5 to 3.5 for older generation mechanical heart valves. Williamell, et al. CHEST 2004: 126:204S to 233S. Cholesterol (mg/dL) Date Value 05/30/2017 99 HDL Cholesterol (mg/dL) Date Value 05/30/2017 38 LDL Cholesterol (mg/dL) Date Value 05/30/2017 48 Triglyceride (mg/dL) Date Value 05/30/2017 65 TSH Date Value Ref Range Status 08/05/2017 3.920 0.400 - 5.500 uU/mL Final Pharmacy has been captured: Yes. Patient prefers: [facility]. Mago Bernstein CNP 09/06/2017 7:55 AM Signed The following approved medication requests have been transmitted electronically. Signed Prescriptions Disp Refills Levothyroxine 25 mcg cap 30 capsule 11 Sig: Take 1 capsule by mouth once daily. DORCAS: No Authorizing Provider: KAYLA BERNSTEIN (HARNESS INSTALLER) Kayla Bernstein CNP Allergies As of Date: 09/05/2017 (No Known Allergies) Date Reviewed: 08/05/2017 Reviewed by: Leeann Soliz Ma - Fully Assessed Reason for Visit: Refill Request [94] Order(s):Levothyroxine 25 mcg capTake 1 capsule by mouth once daily.Disp: 30 capsuleRfl: 11 Prescriptions as of 09/05/2017 Sig: LEVOTHYROXINE 25 MCG CAPSULE Take 1 capsule by mouth once * FERROUS SULFATE 325 MG (65 MG* Take 1 tablet by mouth every * SIMVASTATIN 20 MG TABLET Take 1 tablet by mouth once d* PANTOPRAZOLE 40 MG TABLET,DEL* Take 1 tablet by mouth once d* SPIRONOLACTONE 50 MG TABLET Take 2 tablets by mouth once * METAMUCIL ORAL Take by mouth once daily. LORATADINE 10 MG TABLET Take 10 mg by mouth once lilian* ASPIRIN 81 MG TABLET,DELAYED * Take 81 mg by mouth once lilian* INSULIN ASPART 100 UNIT/ML JAIMES* Inject subcutaneously 12 unit* METOPROLOL TARTRATE 25 MG TAB* Take 1 tablet by mouth twice * DESOXIMETASONE 0.25 % TOPICAL* Apply thin layer twice daily INSULIN GLARGINE 100 UNIT/ML * Inject 25 Units subcutaneousl* LANCETS 28 GAUGE Test blood glucose 4 times da* BLOOD SUGAR DIAGNOSTIC STRIPS Test blood glucose 4 times da* PEN NEEDLE, DIABETIC 31 GAUGE* USE WITH INSULIN PENS 4 TIMES* GLIPIZIDE 5 MG TABLET Take 1 tablet by mouth daily * FUROSEMIDE 40 MG TABLET Take 40 mg by mouth every oth* METHYLCELLULOSE (LAXATIVE) 50* Take 500 mg by mouth DAILY. MICONAZOLE NITRATE 2 % TOPICA* Apply 1 application to affect* MECLIZINE 25 MG TABLET Take 1 tablet by mouth three * LACTULOSE 10 GRAM/15 ML ORAL * Take 30 mL by mouth once lilian* RIFAXIMIN 550 MG TABLET Take 1 tablet by mouth twice * Problem List As Of Date 09/05/2017 Noted Resolved Viral gastroenteritis [A08.4] INVALID FOR*09/06/2014 Dehydration [E86.0] INVALID FOR*09/06/2014 Hypothyroidism [E03.9] GERD (gastroesophageal reflux disease) [K21.9] Renal disorder [N28.9] More... 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 History of colonic polyps [Z86.010] INVALID FOR* More... Prescriptions ordered this encounter Disp Refills Start End LEVOTHYROXINE 25 MCG CAPSULE 30 c* 11 09/06/2017 Route: ORAL Sig: Take 1 capsule by mouth once daily. Medications Discontinued During This Encounter Levothyroxine 25 mcg cap 30 c* 3 05/09/2017 09/06/2017 Route: ORAL Sig: Take 1 tablet by mouth once daily. Disc: Reason for discontinue is not on file. Encounter Status:Closed by KAYLA BERNSTEIN CNP on 09/06/17 ALLERGIES ALLERGIES DATE TYPE / CODE NAME / CODE REACTION SEVERITY SOURCE 04/10/2018 Drug No Known Unknown [facility] Allergy/416 Allergies/[id number] Hospital 153531(SNOM 0388(RXNORM) Repository ED CT) NG/[id number] NO KNOWN [facility] 6(SNOMED ALLERGIES [facility]) Repository Drug NO KNOWN [facility] Class/89888 ALLERGIES Other [place] 1003(SNOMED Repository CT) ENCOUNTERS ENCOUNTERS ADMIT/DISCHARGE ACCOUNT NUMBER ADMITTING ENCOUNTER LOCATION SOURCE CLASS 08/11/2018/08/11/20 [id number] Ambulatory [address] [place] Repository 08/11/2018/08/11/20 [id number] Ambulatory [address] [place] Repository 08/05/2018 [id number] Ambulatory BBuilding:[facility] Repository 07/30/2018/07/31/20 [id number] Ambulatory [address] [place] Repository 07/30/2018/07/31/20 [id number] Ambulatory [address] [place] Repository 07/22/2018 [id number] [facility] 07/20/2018/07/21/20 [id number] Ambulatory [address] [place] Repository 07/20/2018/07/20/20 [id number] Ambulatory [address] [place] Repository 07/02/2018/07/03/20 [id number] Ambulatory [address] [place] Repository 07/02/2018/07/03/20 [id number] Ambulatory [address] [place] Repository 06/18/2018/06/19/20 [id number] Ambulatory [address] [place] Repository 06/18/2018/06/19/20 [id number] Ambulatory [address] [place] Repository 06/18/2018/06/18/20 [id number] Ambulatory [facility] [place] Repository 06/18/2018/06/19/20 [id number] Ambulatory [facility] [place] Repository 06/18/2018 [id number] Ambulatory [facility] MEDICAL Repository CENTERBuildi ng:[facility] 06/04/2018/06/05/20 [id number] Ambulatory [facility] [place] Repository 06/04/2018/06/05/20 [id number] Ambulatory [facility] [place] Repository 05/28/2018/05/29/20 [id number] Ambulatory [facility] [place] Repository 05/28/2018 [id number] Ambulatory [place] [facility] [place] Repository 05/28/2018/05/29/20 [id number] Ambulatory [facility] [place] Repository 05/21/2018/05/22/20 [id number] Ambulatory [place] [facility] [place] Repository 05/21/2018/05/22/20 [id number] Ambulatory [facility] [place] Repository 05/19/2018/05/19/20 [id number] Ambulatory [facility] [place] Repository 05/14/2018/05/15/20 [id number] Ambulatory [place] [facility] [place] Repository 05/14/2018/05/15/20 [id number] Ambulatory [facility] [place] Repository 05/12/2018/05/12/20 [id number] Ambulatory [place] [facility] [place] Repository 05/08/2018 [id number] Ambulatory [facility] ding:MEDOUTP Repository 05/07/2018/05/08/20 [id number] Ambulatory [place] [place] Repository 05/07/2018/05/07/20 [id number] Ambulatory [place] [facility] [place] Repository 04/30/2018/05/01/20 [id number] Ambulatory [facility] [place] Repository 04/30/2018/05/01/20 [id number] Ambulatory [place] [facility] [place] Repository 04/23/2018/04/23/20 [id number] Ambulatory [place] [facility] [place] Repository 04/23/2018/04/24/20 [id number] Ambulatory [address] [place] Repository 04/21/2018 [id number] Ambulatory [facility] ding:LAB.FUT Repository URE 04/18/2018/08/25 [id number] Ambulatory [address] ding:MEDOUTP Repository 04/17/2018/04/17/20 [id number] Ambulatory BBuilding:TONA Roberson [address] [place] [address] Repository 04/16/2018/04/16/20 [id number] Ambulatory [place] [facility] [place] Repository 04/16/2018/04/17/20 [id number] Ambulatory [place] [facility] [place] Repository 04/10/2018 [id number] Ambulatory [facility] ding:MEDOUTP Repository 04/09/2018/04/09/20 [id number] Ambulatory [place] [facility] [place] Repository 04/09/2018/04/10/20 [id number] Ambulatory [place] [facility] [place] Repository 04/09/2018/04/09/20 [id number] Ambulatory [place] [facility] [place] Repository 04/07/2018/04/10/20 [id number] Ambulatory [place] [facility] [place] Repository 04/04/2018/04/04/20 [id number] Emergency [address] ding:ED Repository 04/01/2018/04/06/20 [id number] Ambulatory [address] [place] Repository 03/25/2018 [id number] Ambulatory [facility] ding:MEDOUTP Repository 03/24/2018 [id number] Ambulatory [facility] ding:MTLAB Repository 03/24/2018/03/24/20 [id number] Ambulatory [place] [facility] [place] Repository 03/24/2018/03/25/20 [id number] Ambulatory [place] [facility] [place] Repository 03/11/2018 [id number] Ambulatory [facility] ding:MEDOUTP Repository 03/10/2018/03/10/20 [id number] Ambulatory [place] [facility] [place] Repository 03/10/2018/03/11/20 [id number] Ambulatory [place] [facility] [place] Repository 03/02/2018/03/06/20 [id number] Ambulatory [place] [facility] [place] Repository 02/24/2018/02/27/20 [id number] Ambulatory [place] [facility] [place] Repository 02/24/2018/02/25/20 [id number] Ambulatory [address] [place] Repository 02/20/2018 [id number] Ambulatory [facility] ding:MEDOUTP Repository 02/19/2018/02/20/20 [id number] Ambulatory [address] [place] Repository 02/19/2018/02/21/20 [id number] Ambulatory [address] [place] Repository 02/17/2018/02/18/20 [id number] Ambulatory [address] [place] Repository 02/16/2018/02/17/20 [id number] Ambulatory BBuilding:[facility] Kar[facility] [address] [place] [address] Repository 02/12/2018 [id number] Ambulatory [facility] ding:MEDOUTP Repository 02/10/2018/02/12/20 [id number] Ambulatory [address] [place] Repository 02/10/2018 [id number] Ambulatory [facility] [place] Repository 02/10/2018/02/11/20 [id number] Ambulatory [address] [place] Repository 02/04/2018/02/07/20 [id number] Ambulatory [address] [place] Repository 01/28/2018 [id number] Ambulatory [facility] ding:MEDOUTP Repository 01/27/2018 [id number] Ambulatory [facility] ding:MTLAB Repository 01/27/2018 [id number] Ambulatory [facility] [place] Repository 01/27/2018/01/28/20 [id number] Ambulatory [address] [place] Repository 01/27/2018/01/29/20 [id number] Ambulatory [address] [place] Repository 01/13/2018/01/15/20 [id number] Ambulatory [address] [place] Repository 01/13/2018/01/15/20 [id number] Ambulatory [address] [place] Repository 12/30/2017/01/01/20 [id number] Ambulatory [address] [place] Repository 12/30/2017/01/07/20 [id number] Ambulatory [address] [place] Repository 12/29/2017 [id number] Ambulatory [facility] [place] Repository 12/29/2017/12/31/19 [id number] Ambulatory [address] [place] Repository 12/29/2017/12/30/19 [id number] Ambulatory [address] [place] Repository 12/20/2017/12/24/19 [id number] GUILLE BRIAN Inpatient [address] Other [place] Repository 12/19/2017/12/21/19 [id number] Emergency [address] ding:ED Repository 12/17/2017/12/18/19 [id number] Ambulatory [address] Other [place] Repository 12/17/2017/12/18/19 [id number] Ambulatory [facility] [address] MEDICAL Repository CENTERBuildi ng:CAGWS 12/12/2017 [id number] Ambulatory [facility] ding:MTLAB Repository 12/09/2017/12/11/19 [id number] Ambulatory [address] [place] Repository 12/09/2017/12/10/19 [id number] Ambulatory [address] [place] Repository 11/25/2017/11/27/19 [id number] Ambulatory [address] [place] Repository 11/25/2017/11/27/19 [id number] Ambulatory [address] [place] Repository 11/24/2017/11/25/[id number] [place] Repository 11/11/2017/11/13/19 [id number] Ambulatory [address] [place] Repository 11/11/2017/11/13/19 [id number] Ambulatory [address] [place] Repository 11/11/2017 [id number] Ambulatory [facility] ding:MTLAB Repository 11/11/2017/11/12/19 [id number] Ambulatory [address] Main [place] Repository 11/10/2017 [id number] Ambulatory [facility] ding:LAB.FUT Repository URE 11/05/2017/11/06/19 [id number] Ambulatory [address] Main [place] Repository 11/05/2017/11/06/19 [id number] Ambulatory [address] Main [place] Repository 11/05/2017/11/08/19 [id number] Ambulatory [address] Main [place] Repository 11/05/2017/11/06/19 [id number] Ambulatory [address] [place] Repository 11/05/2017/11/06/19 [id number] Ambulatory [address] Main [place] Repository 10/30/2017 [id number] Ambulatory [facility] Repository 10/30/2017/11/01/19 [id number] Ambulatory [address] Repository 10/30/2017/11/01/19 [id number] Ambulatory [address] Repository 10/30/2017 [id number] Ambulatory [facility] Other [place] Repository 10/28/2017 [id number] Ambulatory [facility] ding:MTLAB Repository 10/28/2017/12/20/19 [id number] Ambulatory [address] Repository 10/10/2017 [id number] Ambulatory [facility] ding:LAB Repository 10/05/2017/10/05/19 [id number] Emergency [address] ding:ED Repository 10/05/2017 [id number] Ambulatory [facility] Repository 09/29/2017 [id number] Ambulatory [facility] ding:LAB.FUT Repository URE PAYERS PAYERS ENCOUNTER GUARANTOR PAYER SUBSCRIBER SOURCE 08/05/2018 HANG Gutierrez Primary [facility] REISINGERDOB: Insurance:[facility]ARE [facility] [id number] PART B [facility] [id number] Repository [place] Number: [address] [place] [place] [id number] [place], [place] [address]Ovh: (216) Date:2018-08-05 [id number]: () [id number] [phone] Name:[facility] ()Tel: [phone] Gfjqhybhryfgew FSYXD [phone] () [address] [place] [address] 64993EZ: 08/05/2018 Secondary [facility] Insurance:MEDICAID OF REISINGERDOB: [facility] [id number] [facility] [id number] [place] Date:2018-08-05 12817Fxw: [phone] [id number] [phone] Name:GEORGE Sher ()Tel: [phone]) [phone], [place] [phone] (SU) [address]WP: 07/22/2018 HANG L Primary HANG L [place] [id number] Insurance:[facility] REISINGERDOB: Community [facility] [id number] [id number] Number: Repository [address]Ndf: [phone] [id number] [phone] () Date:2315-60-79MZ [address], [place] [address]GI: 07/22/2018 Secondary NOT GIVENUNK [place] Insurance:SELF PAY [facility] Number: Effective Repository Date:2018-07-20 06/18/2018 HANG L Primary HANG L [facility] REISINGERDOB: Insurance:MEDICARE A REISINGERDOB: Health System AND BPolicy Number: [id number] Repository [place] [id number], [place] Date: [address]Duu: () 06/18/2018 Secondary HANG L [facility] Insurance:[place] REISINGERDOB: Health System MEDICAIDPolicy [id number] Repository Number: [id number] Date: 05/08/2018 HANG L Primary HANG L [place] [id number] Insurance:[facility] REISINGERDOB: Community [place] *IN [facility] [id number], [place] Number: Repository [id number]: [phone] [id number] [phone] () Date:8966-50-53BT [address] [place] [address]DB: 05/08/2018 Secondary NOT GIVENUNK [place] Insurance:SELF PAY [facility] Number: Effective Repository Date:2018-05-07 04/21/2018 HANG L Primary HANG L [place] [id number] Insurance:MEDICARE REISINGERDOB: Community [place] PART A olic [id number], [place] Number: Repository [id number]: [phone] [id number] [phone] () Date:2018-02-06 04/21/2018 Secondary HANG L [place] Insurance:MEDICAIDPol REISINGERDOB: Community icy Number: [id number] Hospital [id number] Repository Date:2018-02-06 04/21/2018 Tertiary NOT GIVENUNK [place] Insurance:SELF PAY [facility] Number: Effective Repository Date:2018-02-06 04/18/2018 HANG L Primary HANG L [place] [id number] Insurance:MEDICARE REISINGERDOB: Community [place] PART A [facility] [id number], [place] Number: Repository [address]Dwf: 216 [id number] [phone] () Date:2018-04-16 04/18/2018 Secondary HANG L [place] Insurance:MEDICAIDPol REISINGERDOB: [facility] icy Number: [id number] Hospital [id number] Repository Date:2018-04-16 04/18/2018 Tertiary NOT GIVENUNK [place] Insurance:SELF PAY [facility] Number: Effective Repository Date:2018-04-16 04/17/2018 HANG L [facility]: Insurance:MEDICARE REISINGERDOB: [facility] [id number] PART BPolicy Number: [id number] Repository [place] [id number] [address] [place], [place] Date:2018-04-08 - [place], [place] [address]Pyd: [phone] [id number]: () Name:[facility] [phone] Compa ANNE ()Tel: [phone]) Cgf [address], 0000000 () [place] [address]BI: 04/17/2018 Secondary HANG L [facility] Insurance:MEDICAID OF REISINGERDOB: [facility] Number: [id number] Repository [id number] Date:2018-04-08 - [place] [id number] [phone]: ([phone]) Name:GEORGE RILEY [phone] 644[address]Tcxnslzn, [place] ()Tel: [phone]: () [phone] 04/10/2018 HANG L Primary HANG L [place] [id number] Insurance:MEDICARE REISINGERDOB: Community [place] PART A [facility] [id number], [place] Number: Repository [address]Neq: 216 [id number] [phone] () Date:2018-04-09 04/10/2018 Secondary HANG L [place] Insurance:MEDICAIDPol REISINGERDOB: [facility] icy Number: [id number] Hospital [id number] Repository Date:2018-04-09 04/10/2018 Tertiary NOT GIVENUNK [place] Insurance:SELF PAY [facility] Number: Effective Repository Date:2018-04-09 04/04/2018 HANG L Primary HANG L [place] [id number] Insurance:MEDICARE REISINGERDOB: Community [place] PART A [facility] [id number], [place] Number: Repository [address]Uob: 216 [id number] [phone] () Date:2018-04-04 04/04/2018 Secondary HANG L [place] Insurance:MEDICAIDPol REISINGERDOB: Community icy Number: [id number] Hospital [id number] Repository Date:2018-04-04 04/04/2018 Tertiary NOT GIVENUNK [place] Insurance:SELF PAY [facility] Number: Effective Repository Date:2018-04-04 03/25/2018 HANG L Primary HANG L [place] [id number] Insurance:MEDICARE REISINGERDOB: Community [place] PART A [facility] [id number] Memorial Hospital [place] Number: Repository [address]Ijw: [phone]) [id number] [phone] (HP) Date:2018-03-24 03/25/2018 Secondary HANG L [place] Insurance:MEDICAIDPol REISINGERDOB: Community icy Number: [id number] Hospital [id number] Repository Date:2018-03-24 03/25/2018 Tertiary NOT GIVENUNK [place] Insurance:SELF PAY [facility] Number: Effective Repository Date:2018-03-24 03/24/2018 HANG L Primary HANG L [place] [id number] Insurance:MEDICARE REISINGERDOB: Community [place] PART A [facility] [id number], [place] Number: Repository [address]Ygs: 216 [id number] [phone] () Date:2018-03-24 03/24/2018 Secondary HANG L [place] Insurance:MEDICAIDPol REISINGERDOB: Community icy Number: [id number] Hospital [id number] Repository Date:2018-03-24 03/24/2018 Tertiary NOT GIVENUNK [place] Insurance:SELF PAY [facility] Number: Effective Repository Date:2018-03-24 03/11/2018 HANG L Primary HANG L [place] [id number] Insurance:MEDICARE REISINGERDOB: Community [place] PART A [facility] [id number] Memorial Hospital [place] Number: Repository [address]Xog: 216 [id number] [phone] () Date:2018-03-10 03/11/2018 Secondary HANG L [place] Insurance:MEDICAIDPol REISINGERDOB: Community icy Number: [id number] Hospital [id number] Repository Date:2018-03-10 03/11/2018 Tertiary NOT GIVENUNK [place] Insurance:SELF PAY [facility] Number: Effective Repository Date:2018-03-10 02/20/2018 HANG L Primary HANG L [place] [id number] Insurance:MEDICARE REISINGERDOB: Community [place] PART A [facility] [id number], [place] Number: Repository [address]Lzv: [phone]) [id number] [phone] () Date:2018-02-19 02/20/2018 Secondary HANG L [place] Insurance:MEDICAIDPol REISINGERDOB: [facility] icy Number: [id number] Hospital [id number] Repository Date:2018-02-19 02/20/2018 Tertiary NOT GIVENUNK [place] Insurance:SELF PAY [facility] Number: Effective Repository Date:2018-02-19 02/16/2018 HANG [facility] REISINGERDOB: Insurance:MEDICARE REISINGERDOB: [facility] PART BPolicy Number: [id number] Repository [place] [id number] [place], [place] Date:2018-02-09 - [place], [place] [address]Uam: [phone] [id number] [phone]: () Name:[facility] [id number] [employer] ()Tel: (000) [address] [address]Ujtcqukun, 000-0000 (WP) [place] [address]YI: 02/16/2018 Secondary HANG Karol [facility] Insurance:MEDICAID [facility]: [facility] Number: [id number] Repository [id number] Date:2018-02-09 - [place], [place] [id number] [address]Iql: (216) Name:GEORGE RILEY [phone] [id number], [place] ()Tel: 000) [phone]: (WP) [phone] 02/12/2018 HANG L Primary HANG [place] [id number] Insurance:MEDICARE [facility]ERDOB[facility] BPolicy [id number], [place] Number: Repository [address]Vrj: (216) [id number] [phone] () Date:2018-02-10 02/12/2018 Secondary HANG L [place] Insurance:MEDICAIDPol REISINGERDOB: Community icy Number: [id number] Hospital [id number] Repository Date:2018-02-10 02/12/2018 Tertiary NOT GIVENUNK [place] Insurance:SELF PAY [facility] Number: Effective Repository Date:2018-02-10 01/28/2018 HANG L Primary HANG L [place] [id number] Insurance:MEDICARE REISINGERDOB: Community [place] PART A [facility] [id number] Memorial Hospital [place] Number: Repository [address]Yag: [phone]) [id number] [phone] (HP) Date:2018-01-28 01/28/2018 Secondary HANG L [place] Insurance:MEDICAIDPol REISINGERDOB: [facility] icy Number: [id number] Hospital [id number] Repository Date:2018-01-28 01/28/2018 Tertiary NOT GIVENUNK [place] Insurance:SELF PAY [facility] Number: Effective Repository Date:2018-01-28 01/27/2018 HANG L Primary HANG L [place] [id number] Insurance:MEDICARE REISINGERDOB: Community [place] PART A [facility] [id number] Memorial Hospital [place] Number: Repository [address]Egw: 216 [id number] [phone] () Date:2018-01-27 01/27/2018 Secondary HANG L [place] Insurance:MEDICAIDPol REISINGERDOB: Community icy Number: [id number] Hospital [id number] Repository Date:2018-01-27 01/27/2018 Tertiary NOT GIVENUNK [place] Insurance:SELF PAY [facility] Number: Effective Repository Date:2018-01-27 12/19/2017 HANG L Primary HANG L [place] [id number] Insurance:MEDICARE REISINGERDOB: Community [place] PART A [facility] [id number] Memorial Hospital [place] Number: Repository [address]Ejl: [phone] [id number] [phone] () Date:2017-12-19 12/19/2017 Secondary HANG L [place] Insurance:[facility] REISINGERDOB: Community *IN [facility] [id number] Hospital Number: Repository [id number] Date:1985-32-52NSRM CLAIMS [address] [address]QR: 12/19/2017 Tertiary NOT GIVENUNK [place] Insurance:SELF PAY [facility] Number: Effective Repository Date:2017-12-19 12/17/2017 HANG L Primary HANG L [facility] REISINGERDOB: Insurance:MEDICARE A REISINGERDOB: Health System AND [facility] Number: [id number] Repository [place] [id number], [place] Date: [address]Oja: () 12/17/2017 Secondary HANG L [facility] Insurance:[place] REISINGERDOB: Health System MEDICAIDPolicy [id number] Repository Number: [id number] Date: 12/12/2017 HANG L Primary HANG L [place] [id number] Insurance:MEDICARE REISINGERDOB: Community [place] PART A [facility] [id number], [place] Number: Repository [address]Lga: [phone]) [id number] [phone] () Date:2017-12-12 12/12/2017 Secondary HANG L [place] Insurance:MEDICAIDPol REISINGERDOB: [facility] icy Number: [id number] Hospital [id number] Repository Date:2017-12-12 12/12/2017 Tertiary NOT GIVENUNK [place] Insurance:SELF PAY [facility] Number: Effective Repository Date:2017-12-12 11/11/2017 HANG L Primary HANG L [place] [id number] Insurance:MEDICARE REISINGERDOB: Community [place] PART A [facility] [id number], [place] Number: Repository [address]Qhk: [phone]) [id number] [phone] () Date:2017-11-11 11/11/2017 Secondary HANG L [place] Insurance:MEDICAIDPol REISINGERDOB: Community icy Number: [id number] Hospital [id number] Repository Date:2017-11-11 11/11/2017 Tertiary NOT GIVENUNK [place] Insurance:SELF PAY [facility] Number: Effective Repository Date:2017-11-11 11/10/2017 HANG L Primary HANG L [place] [id number] Insurance:MEDICARE REISINGERDOB: Community [place] PART A [facility] [id number] Memorial Hospital [place] Number: Repository [address]Dbf: [phone]) [id number] [phone] (HP) Date:2017-11-10 11/10/2017 Secondary HANG L [place] Insurance:MEDICAIDPol REISINGERDOB: [facility] icy Number: [id number] Hospital [id number] Repository Date:2017-11-10 11/10/2017 Tertiary NOT GIVENUNK [place] Insurance:SELF PAY [facility] Number: Effective Repository Date:2017-11-10 10/28/2017 HANG L Primary HANG L [place] [id number] Insurance:MEDICARE REISINGERDOB: Community [place] PART A [facility] [id number] [place] Number: Repository [address]Meb: [phone] [id number] [phone] () Date:2017-10-28 10/28/2017 Secondary HANG L [place] Insurance:MEDICAIDPol REISINGERDOB: [facility] icy Number: [id number] Hospital [id number] Repository Date:2017-10-28 10/28/2017 Tertiary NOT GIVENUNK [place] Insurance:SELF PAY [facility] Number: Effective Repository Date:2017-10-28 10/10/2017 HANG L Primary HANG L [place] [id number] Insurance:MEDICARE REISINGERDOB: Community [place] PART A [facility] [id number] [facility] Hospital, [place] Number: Repository [address]Swy: [phone]) [id number] [phone] () Date:2017-10-10 10/10/2017 Secondary HANG L [place] Insurance:MEDICAIDPol REISINGERDOB: Community icy Number: [id number] Hospital [id number] Repository Date:2017-10-10 10/10/2017 Tertiary NOT GIVENUNK [place] Insurance:SELF PAY [facility] Number: Effective Repository Date:2017-10-10 10/05/2017 HANG L Primary HANG L [place] [id number] Insurance:MEDICARE REISINGERDOB: Community [place] PART A BPolicy [id number], [place] Number: Repository [address]Arx: [phone] [id number] [phone] (HP) Date:2017-10-05 10/05/2017 Secondary HANG L [place] Insurance:MEDICAIDPol REISINGERDOB: Community icy Number: [id number] Hospital [id number] Repository Date:2017-10-05 10/05/2017 Tertiary NOT GIVENUNK [place] Insurance:SELF PAY [facility] Number: Effective Repository Date:2017-10-05 09/29/2017 HANG L Primary HANG L [place] [id number] Insurance:[place] REISINGERDOB: Community [place] [employer] INS [id number], [place] COMPPolicy Number: Repository [id number]: [phone] [id number] [phone] (HP) Date:2017-09-[address] [address]VJ: 09/29/2017 Secondary HANG L [place] Insurance:MEDICARE REISINGERDOB: Community PART A olicy [id number] Hospital Number: Repository [id number] Date:2017-09-29 09/29/2017 Tertiary NOT GIVENUNK [place] Insurance:SELF PAY [facility] Number: Effective Repository Date:2017-09-29
== END ==
PROVIDERS: Family Provider Nurse Practitioner Family; PCP Nurse Practitioner Family; Referring Provider Internal Medicine Hematology & Oncology; Visit Provider Internal Medicine Hematology & Oncology
DX: Z51.89 Encounter for other specified aftercare (principal); K92.2 Gastrointestinal hemorrhage, unspecified; N18.9 Chronic kidney disease, unspecified
CPT/HCPCS: 36430; 86850; 86900; 86920; 86922; J7040; P9016; A4216; J1940

== ENCOUNTER → 2018-08-14 09:01 | Outpatient (CLI) | payer OTHER, SELFPAY ==
[2018-07-22 09:23] VITALS: BMI 39.9
[2018-08-14] VITALS (7 sets, daily range): BP systolic 112–135; BP diastolic 51–60; PULSE 67–78; RESP 16–18; TEMP 36.4–36.8; O2SAT 95–99; BMI 40.4
[2018-08-14] MEDS: Acetaminophen 325 MG Tablet 650 MG PO (09:26)
[2018-08-14] MEDS: Furosemide 20 MG/2 ML VIAL IV (12:35)
== END ==
PROVIDERS: Family Provider Nurse Practitioner Family; PCP Nurse Practitioner Family; Referring Provider Internal Medicine Hematology & Oncology; Visit Provider Internal Medicine Hematology & Oncology
DX: N18.3 Chronic kidney disease, stage 3 (moderate) (principal)
CPT/HCPCS: 36430; 86850; 86900; 86920; 86922; J7040; P9016; A4216; J1940

== ENCOUNTER → 2018-09-30 10:50 | Outpatient (CLI) | payer MEDICARE, SELFPAY ==
[2018-08-14 09:28] VITALS: BMI 40.4
[2018-09-30] MEDS: Acetaminophen 325 MG Tablet 650 MG PO (11:05)
[2018-09-30 11:15] VITALS: BP 130/48; PULSE 67; RESP 16; TEMP 36.8; O2SAT 98; BMI 39.5
[2018-09-30 11:43] VITALS: BP 118/51; PULSE 69; RESP 16; TEMP 36.6; O2SAT 98
[2018-09-30 12:44] VITALS: BP 121/47; PULSE 72; RESP 16; TEMP 36.5
[2018-09-30 13:39] VITALS: BP 136/78; PULSE 68; TEMP 36.9
== END ==
PROVIDERS: Family Provider Nurse Practitioner Family; PCP Nurse Practitioner Family; Referring Provider Internal Medicine Hematology & Oncology; Visit Provider Internal Medicine Hematology & Oncology
DX: Z51.89 Encounter for other specified aftercare (principal); N18.4 Chronic kidney disease, stage 4 (severe); K92.2 Gastrointestinal hemorrhage, unspecified
CPT/HCPCS: 36430; 86850; 86900; 86920; 86922; J7040; P9016; A4216

== ENCOUNTER → 2018-10-28 08:51 | Outpatient (CLI) | payer MEDICARE, SELFPAY ==
[2018-09-30 11:15] VITALS: BMI 39.5
[2018-10-28 09:15] VITALS: BP 112/45; PULSE 60; RESP 20; TEMP 36.1; O2SAT 100; BMI 38.4
[2018-10-28] MEDS: Acetaminophen 325 MG Tablet 650 MG PO (09:22)
[2018-10-28 09:42] VITALS: BP 101/49; PULSE 60; RESP 16; TEMP 36.3; O2SAT 97
[2018-10-28 10:42] VITALS: BP 104/52; PULSE 59; RESP 16; TEMP 36.3; O2SAT 92
[2018-10-28 11:42] VITALS: BP 110/52; PULSE 60; RESP 16; TEMP 36.4; O2SAT 96
== END ==
PROVIDERS: Family Provider Nurse Practitioner Family; PCP Nurse Practitioner Family; Referring Provider Internal Medicine Hematology & Oncology; Visit Provider Internal Medicine Hematology & Oncology
DX: Z51.89 Encounter for other specified aftercare (principal); N18.4 Chronic kidney disease, stage 4 (severe); D64.9 Anemia, unspecified
CPT/HCPCS: 36430; 86850; 86900; 86920; 86922; J7040; P9016; A4216

== ENCOUNTER 2018-10-31 09:46 | Inpatient (IN) | payer MEDICARE, SELFPAY ==
[2018-10-28 09:15] VITALS: BMI 38.4
[2018-10-31] VITALS (13 sets, daily range): BP systolic 117–140; BP diastolic 40–63; PULSE 50–65; RESP 16–23; TEMP 35.9–37.4; O2SAT 87–100; BMI 38.4; BMI 40.8
--- NOTE | 2018-10-31 10:07 | EKG12_ITS ---
Test Reason : CP Blood Pressure : / mmHG Vent. Rate : 061 BPM Atrial Rate : 061 BPM P-R Int : 172 ms QRS Dur : 092 ms QT Int : 402 ms P-R-T Axes : 064 063 057 degrees QTc Int : 404 ms Normal sinus rhythm Normal ECG Confirmed by JOSE A MCCONNELL, RONIT ([id number]), metropolitan editor ANGIE ORTEGA ([id number]) on 11/03/2018 9:55:52 AM Referred By: Shanna Oliveira Confirmed By:RONIT NARANJO MD
--- NOTE | 2018-10-31 10:07 | RAD_ITS ---
STUDY: X-RAY CHEST REASON FOR EXAM: Male, 78 years old. Chest pain. TECHNIQUE: Single AP portable view of the chest. COMPARISON: 04/04/2018. FINDINGS: Normal lung volumes. Increasing prominence of the lung markings. This could be progressive fibrosis, and/or congestion/edema. More focal density in the lung bases suggests atelectasis. Mild infiltrates not excluded. Possible small bilateral pleural effusions. Mild cardiomegaly. Degenerative changes of the bones. RAD/Chest 1 View (Portable) IMPRESSION: Increasing prominence of lung markings which could be worsening fibrosis or congestion. Atelectasis or infiltrate in the lung bases. Electronically Signed: Shiv Sepulveda MD at 10:26 EST , Service support ,
[2018-10-31] MEDS: Aspirin 81 MG TAB.CHEW 324 MG PO (10:11)
--- NOTE | 2018-10-31 10:11 | ED.DCSUM_ITS ---
- ER Visit Summary Date of Service: 10/31/18 Chief Complaint: Dyspnea chest pain History of Present Illness: The patient is a 78 M here with daughter, states sinus congestion for 2 days, this morning 4 AM chest discomfort with worsening dyspnea. Nonproductive cough. No fevers. No radicular symptoms. Nausea with dry heaves, no diarrhea. No recent travel, surgeries, or immobilizations. No history of PE or DVT. Denies asthma or COPD history. Per report daughter states EMS had a pulse ox in the 60s. He was placed on oxygen. Denies any LA history. Minimal chest symptoms at this time. History of nonalcoholic liver cirrhosis, diabetes, stage III chronic kidney disease. Remote tobacco history. Physical Examination: General: Alert and oriented ?3, no acute distress HEENT: Normocephalic, atraumatic. Moist mucosa membranes Neck: supple, nontender. Cardiovascular: Regular rate and rhythm, no murmurs Respiratory: Normal breath sounds, symmetric, no distress Abdomen: Soft, nontender, nondistended Extremities: Nontender, no edema, pulses intact ?4 Neuro: no focal neurological deficits. Test Results: EKG: Sinus rate of 61, no ST or T wave changes. WBC 9.5 hemoglobin 9, platelets 93. Creatinine 1.8, GFR 39. INR 1.4. Troponin negative. Chest x-ray per radiology right lobe effusion versus infiltrate versus atelectasis. Noncontrast CT pending. Emergency Department Course and Treatment: Patient hypoxic on arrival, stable on oxygen. Mild chest discomfort cardiac workup negative. Heart score equals 4. ZHANE score is a 2. Chest x-ray note per radiology effusion versus infiltrate versus atelectasis. White count 9.5. Clinically not presenting as pneumonia with no fevers, states dry cough that started mildly yesterday. He was reported 60s pulse ox at home. No old pulmonary history. Denies CHF history he has not alcohol liver cirrhosis on medicines secondary peripheral edema. His creatinine returned at 1.8 with GFR of 39. With inconclusive chest x-ray V/Q would be inadequate. I discussed with hospitalist Dr. Cason, discussion with management. We will give Lovenox and not heparin secondary to his thrombocytopenia. We will do a noncontrast CT of the chest for further evaluation at this time. Will admit to PCU. She requested I speak with covering oncology, discussed with Dr. Lawrence reviewed records, states will recheck B12 at this time he will follow as an inpatient. Family updated. Treatment Plan: [] Disposition: Admission Impression: 1. Acute chest pain 2. Dyspnea 3. Hypoxemia 4. Chronic anemia 5. Chronic thrombocytopenia 6. Chronic kidney disease This note was generated with Xtellusation software. It may contain incorrect words, spelling, and punctuation that were not noted in review of the chart prior to signing ED Disposition - Plan for ED Patient: Disposition: Acute Care Hospital [facility] Diagnosis: Acute chest pain, Liver cirrhosis, CKD (chronic kidney disease), Hypoxemia, Dyspnea, Chronic anemia, Chronic thrombocytopenia Referrals: Kayla Bernstein NP-C [Primary Care Provider] -
[2018-10-31 10:19] LABS: Absolute Lymphocyte Count 0.95 X10^3/ul (0.83-4.51); Basophil# 0.01 X10^3/uL; Basophil% 0.1 % (0-1); Differential Indicated SCAN CRITERIA MET; Eosinophil# 0.11 X10^3/uL; Eosinophils% 1.2 % (0-5); Hematocrit 29.2 % (40-54); Lymphocyte # 0.95 X10^3/ul (4.0); Mean Corp Hgb Conc 30.8 g/gl (32-36); Mean Corpuscular Hgb 34.9 pg (27.0-32.0); Mean Corpuscular Volume 113.2 fL (80-94); Mean Platelet Vol. 12.5 fl (6.2-12.0); Monocyte# 1.33 X10^3/uL; Neutrophil # 7.04 X10^3/uL (2.7-7.7); Neutrophil % 73.8 % (47-70); POSITIVE COUNT NO; POSITIVE DIFFERENTIAL NO; POSITIVE MORPHOLOGY YES; Platelet Count 93 K/mm3 (150-450); RBC Distribution Width CV 19.8 % (11.6-14.6); RBC Distribution Width SD 81.6 fl (35.1-43.9); Red Blood Count 2.58 M/mm3 (4.6-6.2); White Blood Count 9.5 K/mm3 (4.4-11.0)
[2018-10-31 10:23] LABS: International Normalized Ratio 1.4; Prothrombin Time (Protime)PT. 16.9 SECONDS (11.7-14.9)
[2018-10-31 10:24] LABS: Partial Thromboplast Time 36.2 Seconds (24.1-36.2)
[2018-10-31 10:31] LABS: Anion Gap 7 (5-15); BUN 41 mg/dL (7-18); BUN/Creat Ratio 22.8 RATIO (10-20); Calcium,Total 8.3 mg/dL (8.5-10.1); Chloride 106 mmol/L (98-107); EST Glomerular Filtration Rate 39 mL/min (>60); Est Glom Filt Rate - Afr Amer 47 mL/min (>60); Estimated Creatinine Clearance 33.28 ml/min; Glucose 177 mg/dL (74-106); Potassium 4.8 mmol/L (3.5-5.1); Sodium Level 139 mmol/L (136-145)
[2018-10-31 10:34] LABS: Hypochromasia 2+; Macrocytosis 1+; Platelet Estimate MOD DEC (ADEQ); Polychromasia RARE
--- NOTE | 2018-10-31 10:47 | NURSING ---
DR JAMES FOR DR GARCIA
--- NOTE | 2018-10-31 10:52 | CT_ITS ---
STUDY: CT CHEST WITHOUT CONTRAST REASON FOR EXAM: Male, 78 years old. CHEST PAIN, COUGH, RENAL FAILURE RADIATION DOSAGE (If Supplied By Facility): CTDIvol = ( 20.15 ) mGy, DLP = ( 735.08 ) mGycm TECHNIQUE: Transaxial imaging was performed without the administration of intravenous contrast material. Individualized dose optimization techniques were used for this CT. COMPARISON: Chest x-ray of the same day.. FINDINGS: Exam limited by extreme motion. Moderate right pleural effusion. Small left pleural effusion. Moderate atelectasis of the right lung. Mild atelectasis of the left lung. Pneumonic infiltrate may exist in both lower lobes especially in the right lung base. Diffuse interstitial prominence, and prominence of the pulmonary vascular structures consistent with congestion and mild interstitial edema. Mild cardiomegaly. Calcifications in the valve planes and coronary arteries. Heavily calcified granulomas in the subcarinal space. Normal mediastinum. Normal hilar regions. Normal unenhanced pulmonary arteries. Normal aorta arch and descending thoracic aorta. There are multi-level degenerative changes of the thoracic spine. There is no demonstrated abnormality of the visualized upper abdomen. Bilateral gynecomastia. CT/Chest without Contrast IMPRESSION: Limited by motion. Congestion and pulmonary edema. Bilateral pleural effusions worse on the right. Prominent atelectasis and possible infiltrates in both lower lobes worse on the right. Electronically Signed: Shiv Sepulveda MD at 11:37 EST , Service support ,
--- NOTE | 2018-10-31 10:56 | HP.PCM_ITS ---
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 Diabetes mellitus complication status: with unspecified complications Qualified Code(s): E11.8 - Type 2 diabetes mellitus with unspecified complications; Z79.4 - ocean transportation intermediary (current) use of insulin (4) Hyperlipidemia Status: Chronic Qualifiers: Hyperlipidemia type: unspecified Qualified Code(s): E78.5 - Hyperlipidemia, unspecified (5) Liver cirrhosis Status: Chronic Qualifiers: Ascites presence: with ascites (6) Chronic kidney disease, stage III (moderate) Status: Chronic (7) HTN (hypertension) Status: Chronic Qualifiers: Hypertension type: essential hypertension Qualified Code(s): I10 - Essential (primary) hypertension History of Present Illness Date of Admission: 10/31/18 Chief Complaint: Chest pain The patient is a 78 year old M with past medical history of chronic anemia and thrombocytopenia, follows with Dr. Oliveira, liver cirrhosis, CKD stage III, comes in with complaints of shortness of breath and chest pain. Patient admits to upper respiratory, sinus congestion ongoing for 2 days. Patient was recently fused with packed RBCs, 1 unit on 10/28/18. He states that he has left-sided midsternal chest discomfort, without diaphoresis. He denied any dizziness or palpitations. Denied any fever or chills. Received 1 unit packed RBC on 10/28/18 Vitals in the ED show temperature of 97.8F, heart rate 57, blood pressure 117/60, SPO2 100% on 3 L of oxygen. Routine blood work showed WBC count of 9.5, hemoglobin 9.0, platelet count is 93. BMP is remarkable for BUN of 41, creatinine 1.80 which is about his baseline. Troponins x2 have been negative. Chest CT showed moderate right pleural effusion, small left pleural effusion, moderate atelectasis of the right lung, mild atelectasis in left lung, pneumonic infiltrate bilaterally, vascular congestion as well as mild interstitial edema Past Medical History Past Medical History (Chronic Problems): Chronic Problems Chronic anemia (Chronic) Type 2 diabetes mellitus (Chronic) Hyperlipidemia (Chronic) Liver cirrhosis (Chronic) Chronic kidney disease, stage III (moderate) (Chronic) CKD (chronic kidney disease) (Chronic) HTN (hypertension) (Chronic) Allergies No Known Allergies Allergy (Verified 10/31/18 10:19) Home Medications: Ambulatory Orders Medication Instructions Recorded Furosemide [Lasix] 80 mg PO DAILY 11/23/16 Levothyroxine [Synthroid] 25 mcg PO DAILY 11/23/16 Methylcellulose [Fiber Therapy] 500 mg PO DAILY 11/23/16 Miconazole Nitrate [Lotrimin AF] 90 gm TP BID PRN PRN 11/23/16 Pantoprazole Sodium [Protonix] 40 mg PO DAILY 11/23/16 Psyllium Husk [Psyllium] 0.4 gm PO QHS 11/23/16 Rifaximin [Xifaxan] 550 mg PO BID 11/23/16 Simvastatin [Zocor] 20 mg PO DAILY 11/23/16 Ferrous Sulfate 325 mg PO DAILY 10/05/17 Insulin Glargine [Lantus SoloStar 25 units SC BID 10/05/17 Pen] Loratadine [Claritin] 10 mg PO DAILY PRN PRN 10/05/17 Meclizine HCl [Antivert] 25 mg PO TID PRN PRN 10/05/17 Lactulose 30 ml PO DAILY 02/20/18 Darbepoetin Brandyn in Polysorbat 25 mcg SC PRN PRN 04/04/18 [Aranesp] Desoximetasone 0.25% [Topicort Crm 1 applic TOPICAL BID 04/04/18 0.25%] Spironolactone [Aldactone] 100 mg PO DAILY 04/18/18 Insulin Lispro [Humalog Kwikpen] 12 unit SQ DAILY 10/31/18 Insulin Lispro [Humalog Kwikpen] 15 unit SQ DINNER 10/31/18 Insulin Lispro [Humalog Kwikpen] 24 unit SQ DAILY 10/31/18 Propranolol HCl [Inderal] 40 mg PO DAILY 10/31/18 Surgical History: - - prostate surgery, hernia surgery, circumcision Psychiatric History: No pertinent psych hx Lives: With Family Smoking Status: Former smoker Tobacco Use: Non-smoker Alcohol: None Drugs: None - *Family History Maternal History Items: Diabetes, No pertinent history Paternal History Items: - - prostate cancer Review of Systems Constitutional: Reports: Anorexia, Weakness. Denies: Chills, Fever, Weight Change Eyes: Denies: Blurred vision, Cataracts, Conjunctivae Inflammation, Pain, Redness, Vision Change HEENT: Reports: Nasal Congestion, Post Nasal Drip. Denies: Difficulty Hearing, Head Aches, Hearing Changes, Sinus Congestion, Sinus Drainage, Sore Throat Cardiovascular: Reports: Chest Pain. Denies: Claudication, Chest Tightness, Light Headedness, Orthopnea, Palpitations, Paroxysmal Noc. Dyspnea Respiratory: Reports: Shortness of breath at rest, Shortness of breath upon exertion. Denies: Cough, Hemoptysis, Sputum production Gastrointestinal: Denies: Abdominal Pain, Nausea, Vomiting Genitourinary: Denies: Dysuria Musculoskeletal: Denies: Joint Pain, Joint stiffness, Joint swelling, Joint Tenderness Skin: Denies: Rash, Wounds Neurological: Denies: Difficulty swallowing, Focal weakness, Numbness, Tingling Psychiatric: Denies: Anxiety, Depression, Homicidal Ideations, Suicidal Ideations Hematologic/ Lymphatic: Denies: Easy Bruising, Easy Bleeding VTE Information - Inpt Only VTE Present on Admission: No VTE Pharm Prophylaxis ordered?: Yes Patient Problems: Active and Suspected Problems Acute chest pain (Acute) Hypoxemia (Acute) Dyspnea (Acute) - Physical Exam General: Alert, Oriented x3, Cooperative, No apparent distress HEENT: Atraumatic, PERRLA, EOMI, Normocephalic Neck: Supple Lungs: Diminished, Rales, - - Decreased breath sounds in the right lower and middle lung zones Cardiovascular: Regular rate, Regular Rhythm, Normal S1, Normal S2, No murmurs Abdomen: Bowel Sounds Present, Soft, Non Tender Extremities: Edema - +1-2 bilateral pitting edema Skin: No rashes, No breakdown Musculoskeletal: No Tenderness to Palpation of Joints or Extremities Lymphatic: No Cervical, Supraclavicular, or Inguinal Adenopathy Neurological: Cranial nerves II-XII grossly intact Psych/Mental Status: Normal Affect, Appropriate Vital Signs Temp Pulse Resp BP Pulse Ox 98.6 F 63 23 H 140/47 H 87 10/31/18 09:47 10/31/18 09:47 10/31/18 09:47 10/31/18 09:47 10/31/18 09:47 Oxygen Flow Rate (L/min) 4 Oxygen Delivery Method Nasal Cannula Weight: 117.934 kg Body Mass Index (BMI) 38.4 Finger Stick Blood Glucose 132 Laboratory Tests Past 24 Hrs 10/31/18 10/31/18 10/31/18 10:00 10:00 10:00 WBC 9.5 RBC 2.58 L Hgb 9.0 L Hct 29.2 L MCV 113.2 H MCH 34.9 H MCHC 30.8 L RDW 19.8 H RDW Differential 81.6 H Plt Count 93 L MPV 12.5 H Immature Gran % (Auto) 0.900 Neut % (Auto) 73.8 H Lymph % (Auto) 10.0 L Davis % (Auto) 14.0 H Eos % (Auto) 1.2 Baso % (Auto) 0.1 Absolute Neuts (auto) 7.0 Absolute Lymphs (auto) 0.95 Total Counted Not Reportable Platelet Estimate MOD DEC Polychromasia RARE Hypochromasia 2+ Macrocytosis 1+ PT 16.9 H INR 1.4 APTT 36.2 Sodium 139 Potassium 4.8 Chloride 106 Carbon Dioxide 26.0 Anion Gap 7 BUN 41 H Creatinine 1.80 H Estim Creat Clear Calc 33.28 Est GFR (MDRD) Af Amer 47 L Est GFR (MDRD) Non-Af 39 L BUN/Creatinine Ratio 22.8 H Glucose 177 H Calcium 8.3 L Troponin I < 0.015 Assessment/Plan All Active Problems Acute chest pain (Acute) Hypoxemia (Acute) Dyspnea (Acute) Hyperglycemia (Acute) 78 year old M with past medical history of chronic anemia and thrombocytopenia, follows with Dr. Oliveira in the outpatient, liver cirrhosis, CKD stage III, comes in with complaints of shortness of breath and chest pain. 1. Acute hypoxic respiratory failure, SPO2 was in the 60s per EMS, secondary to bilateral pleural effusion, right more than left, acute on chronic CHF, unclear EF, bilateral pneumonias, atelectasis. Patient appears to be saturating well on oxygen This is less likely to be due to pulmonary embolism, received 1 dose of Lovenox in the ED, likely secondary to the above Plan: Admit to PCU, oxygen, IV Lasix, breathing treatments, encourage use of incentive spirometer 2. Bilateral pleural effusions, right more than left, secondary to acute on chronic CHF, possible hepatic hydro-thorax, possible fluid overload from recent blood transfusion BNP is 135.6 although patient is obese, continue on Lasix, weights, strict I's and O's 3. Bilateral pneumonia, no fevers or leukocytosis, will start empirically on ceftriaxone and azithromycin, will repeat chest x-ray, if infiltrates continue to be present, will continue antibiotics otherwise will discontinue antibiotics 4. Acute on chronic CHF, unclear EF, on IV Lasix, will get records from the [facility] 5. Ascites due to liver cirrhosis, continue on Aldactone, Lasix, rifaximin, lactulose 6. Type II DM, will continue on home insulin regimen 7. Chronic anemia and thrombocytopenia, appears to be at his baseline, status post 1 unit of packed RBC on 10/28/18, hematology consulted 8. Hypertension, controlled, continue home medications 9. DVT PPx-she did receive 1 dose of Lovenox x1 pending valuation for possible PE Code Visit Inpatient E&M: 79522 Init Hosp L3
--- NOTE | 2018-10-31 10:56 | NURSING ---
PCU PAINTSIL CP, DYSPNEA, HYPOXIA
[2018-10-31] MEDS: Enoxaparin 120 MG/0.8 ML Syringe SC (11:20)
[2018-10-31 12:25] LABS: Bedside Glucose 126 mg/dL (70-110)
[2018-10-31] MEDS: Furosemide 20 MG/2 ML VIAL IV (14:26)
--- NOTE | 2018-10-31 14:33 | EKG12_ITS ---
Test Reason : CP Blood Pressure : / mmHG Vent. Rate : 058 BPM Atrial Rate : 058 BPM P-R Int : 176 ms QRS Dur : 092 ms QT Int : 420 ms P-R-T Axes : 065 066 052 degrees QTc Int : 412 ms Sinus bradycardia Otherwise normal ECG When compared with ECG of 31-OCT-2018 09:53, MANUAL COMPARISON REQUIRED, DATA IS UNCONFIRMED Confirmed by JAGUAR MCCONNELL, MAGY ([id number]), newspaper copy editor JUS GONZALES ([id number]) on 11/06/2018 9:48:36 AM Referred By: Shanna Oliveira Confirmed By:MAGY MONTESINOS MD
[2018-10-31] MEDS: Ipratropium/Albuterol Sulfate 3 ML AMPUL.NEB INHALATION ×2 (15:07→19:02)
[2018-10-31] MEDS: Furosemide 40 MG/4 ML Vial IV (16:21)
[2018-10-31 16:31] LABS: Bedside Glucose 104 mg/dL (70-110)
[2018-10-31] MEDS: rifAXIMin 550 MG Tablet PO (22:08)
[2018-10-31] MEDS: Atorvastatin Calcium 10 MG Tablet PO (22:08)
[2018-10-31 23:26] LABS: Bedside Glucose 134 mg/dL (70-110)
[2018-11-01] VITALS (14 sets, daily range): BP systolic 102–121; BP diastolic 39–58; PULSE 59–70; RESP 16–20; TEMP 36.2–36.9; O2SAT 94–99
[2018-11-01] MEDS: Ipratropium/Albuterol Sulfate 3 ML AMPUL.NEB INHALATION ×4 (06:48→18:52)
[2018-11-01 07:06] LABS: Bedside Glucose 148 mg/dL (70-110)
[2018-11-01] MEDS: Levothyroxine 25 MCG TABLET PO (07:15)
--- NOTE | 2018-11-01 09:10 | PCM.CONS.B ---
Problem List (1) Chronic anemia Status: Chronic - Consult Date of Consult: 11/01/18 - Reason for Consult HPI: The patient is a 78 yo male with PMH significant for aortic stenosis, cirrhosis and CKD. Diagnosed with cirrhosis early 2017. Underwent EGD and colonoscopy. Was referred to Dr. Oliveira. 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 Patient has been receiving Aranesp injections and periodic RBC transfusions. Maintaining Hgb ~8-9 g/dL and plts 80-90K. Has been seeing Dr. Augustine. Most recent Echo 10/2017: CONCLUSIONS: - Technically difficult exam due to body habitus and suboptimal positioning. - Exam indication: Routine surveillance of mild valvular regurgitation (>3yrs) - The left ventricle is normal in size. There is no left ventricular hypertrophy. Left ventricular systolic function is hyperdynamic. EF = 73 ? 5% (2D biplane) Definity contrast used for endocardial border detection. - The right ventricle is normal in size. Right ventricular systolic function is normal. - Tricuspid aortic valve. There is moderate aortic valve stenosis caused by calcified valve. AV area is 1.34 cm? (0.52 cm?/m?) by continuity, VTI. The peak gradient is 38 mmHg, the mean gradient is 19 mmHg and the dimensionless valve index is 0.39. - Suboptimal subcostal images, could not assess the IVC and hepatic veins. - Exam was compared with the prior echocardiographic exam performed on 09/07/14. ?Aortic stenosis has progressed Patient developed worsening dyspnea following transfusion . Progressed and presented to ED yesterday. CXR and CT revealed b/l effusion with suggestion atelectatic changes vs infiltrates lower lobes. No fever. Chest pain. Minimal cough. Started on diuresis and antibiotics and admitted. No complaints this morning. Allergies No Known Allergies Allergy (Verified 10/31/18 10:19) Current Medications Albuterol Sulfate (Ventolin Aerosols) 2.5 mg INHALATION Q2H PRN PRN PRN Reason: SOB &/OR WHEEZING Albuterol/Ipratropium (Duoneb) 3 ml INHALATION Q4HWA.RT REJI Last Admin: 11/01/18 06:48 Dose: 3 ml Atorvastatin Calcium (Lipitor) 10 mg PO QHS REJI Last Admin: 10/31/18 22:08 Dose: 10 mg Dextrose (D50w Syringe) 0 gm IV X1 PRN; Protocol PRN Reason: Hypoglycemia Ferrous Sulfate (Ferrous Sulfate) 325 mg PO DAILYCM [facility] Last Admin: 11/01/18 09:52 Dose: 325 mg Furosemide (Lasix) 40 mg IV BID@1000,1800 [facility] Glucagon () 1 mg IM .X1 PRN PRN Reason: Hypoglycemia Ceftriaxone Sodium (Rocephin) 1 gm in 50 mls @ 100 mls/hr IV Q24 [facility] Last Admin: 11/01/18 09:52 Dose: 100 mls/hr Azithromycin 500 mg/ Dextrose 255 mls @ 250 mls/hr IV Q24 [facility] Last Admin: 11/01/18 09:52 Dose: 250 mls/hr Insulin Human Lispro (Humalog Kwikpen (Bkc)) 0 unit SQ ACHS [facility]; Protocol Last Admin: 11/01/18 08:54 Dose: Not Given Lactulose (Chronulac, Cephulac) 20 gm PO DAILY [facility] Last Admin: 11/01/18 09:53 Dose: 20 gm Levothyroxine Sodium (Synthroid) 25 mcg PO DAILY@0600 [facility] Last Admin: 11/01/18 07:15 Dose: 25 mcg Loratadine (Claritin) 10 mg PO DAILY PRN PRN PRN Reason: bowels Meclizine HCl (Antivert) 25 mg PO TID PRN PRN PRN Reason: DIZZINESS Pantoprazole Sodium (Protonix) 40 mg PO DAILY [facility] Last Admin: 11/01/18 09:52 Dose: 40 mg Propranolol HCl (Inderal) 40 mg PO DAILY [facility] Last Admin: 11/01/18 10:18 Dose: Not Given Rifaximin (Xifaxan) 550 mg PO BID [facility] Last Admin: 11/01/18 09:52 Dose: 550 mg Sodium Chloride () 5 - 15 ml IV UD PRN PRN Reason: SALINE FLUSH Last Admin: 11/01/18 09:52 Dose: 10 ml Spironolactone (Aldactone) 100 mg PO DAILY [facility] Problem List Pleural effusion (Acute) Aortic stenosis (Chronic) Acute chest pain (Acute) Hypoxemia (Acute) Dyspnea (Acute) Chronic anemia (Chronic) Liver cirrhosis (Chronic) CKD (chronic kidney disease) (Chronic) Exam: VITALS: Vital Signs Temp 98.4 F 11/01/18 08:44 Pulse 62 11/01/18 08:44 Resp 20 H 11/01/18 08:44 BP 102/40 L 11/01/18 08:44 Pulse Ox 94 11/01/18 08:44 Intake & Output 10/30/18 10/31/18 11/02/18 23:59 23:59 00:59 Intake Total 755 / 755 Balance 755 / 755 Weight: 125.3 kg 124.5 kg Intake: Oral 755 / 755 Other: Number of times incontinent 1 1 Incontinent Amount Large comfortable. Decreased inspiratory breath sounds upper lung melendez. Absent at bases. No wheeze. Regular rhythm. Abd: soft and nontender. Mid symmetric swelling legs with some pitting. 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 Assessment: -Has been responding to Aranesp and periodic transfusion. -Thrombocytopenia stable and no bleeding issues. Plan: -Monitor Hgb and transfuse if Hgb < 7.5 g/dL. -Resume Aranesp as outpatient. 2) Dyspnea/hypoxemia. Assessment: -Volume overloaded on presentation. -Suspect worsening . Plan: -Careful diuresis. -Repeat echocardiogram.
[2018-11-01 09:16] LABS: Absolute Lymphocyte Count 1.14 X10^3/ul (0.83-4.51); Absolute Neutrophil Count 4.7 X10^3/uL (2.0-7.7); Basophil# 0.01 X10^3/uL; Basophil% 0.1 % (0-1); Eosinophil# 0.16 X10^3/uL; Eosinophils% 2.3 % (0-5); Hematocrit 26.5 % (40-54); Hemoglobin 8.2 g/dl (13.0-16.5); Lymphocyte # 1.14 X10^3/ul (4.0); Lymphocyte % 16.2 % (19-41); Mean Corp Hgb Conc 30.9 g/gl (32-36); Mean Corpuscular Volume 113.2 fL (80-94); Mean Platelet Vol. 12.4 fl (6.2-12.0); Monocyte# 0.94 X10^3/uL; Monocyte% 13.4 % (0-10); Neutrophil # 4.73 X10^3/uL (2.7-7.7); Neutrophil % 67.4 % (47-70); Platelet Count 92 K/mm3 (150-450); RBC Distribution Width CV 19.7 % (11.6-14.6); RBC Distribution Width SD 80.5 fl (35.1-43.9); Red Blood Count 2.34 M/mm3 (4.6-6.2)
[2018-11-01 09:17] LABS: Differential Indicated SCAN CRITERIA MET; POSITIVE COUNT NO; POSITIVE DIFFERENTIAL NO; POSITIVE MORPHOLOGY YES
[2018-11-01 09:37] LABS: Anisocytosis 1+; Hypochromasia 2+; Macrocytosis 1+; Platelet Estimate MOD DEC (ADEQ); Polychromasia RARE
[2018-11-01 09:38] LABS: BUN 49 mg/dL (7-18); BUN/Creat Ratio 24.7 RATIO (10-20); Chloride 104 mmol/L (98-107); Creatinine, Serum 1.98 mg/dL (0.70-1.30); EST Glomerular Filtration Rate 35 mL/min (>60); Est Glom Filt Rate - Afr Amer 42 mL/min (>60); Estimated Creatinine Clearance 30.25 ml/min; Glucose 203 mg/dL (74-106); Phosphorus 4.4 mg/dL (2.5-4.9); Potassium 4.6 mmol/L (3.5-5.1); Sodium Level 136 mmol/L (136-145)
[2018-11-01] MEDS: 0.9% NaCl Peripheral Flush Adult/Peds IV (09:52)
[2018-11-01] MEDS: Ferrous Sulfate 325 MG Tablet PO (09:52)
[2018-11-01] MEDS: Pantoprazole Sodium 40 MG Tablet PO (09:52)
[2018-11-01] MEDS: rifAXIMin 550 MG Tablet PO ×2 (09:52→21:34)
[2018-11-01] MEDS: Ceftriaxone 1 GM/50 ML BAG IV (09:52)
[2018-11-01] MEDS: Lactulose 20 GM/30 ML UDC PO (09:53)
--- NOTE | 2018-11-01 10:57 | ECHOCS_ITS ---
Reason For Study: CHF Procedure This was a 2D Doppler, Color Flow transthoracic echocardiogram. Contrast injection was performed. Exam performed portable in patient room. Left Ventricle Normal LV size. Mild concentric left ventricular hypertrophy. Left ventricular systolic function is normal. The estimated ejection fraction is 60 %. No regional wall motion abnormalities noted. Right Ventricle Normal RV size. Normal systolic function. Atria The left atrium is moderately enlarged. The right atrium is moderately enlarged. Mitral Valve Normal mitral valve. Tricuspid Valve Normal tricuspid valve. Aortic Valve Trisinus/trileaflet aortic valve. Mild focal aortic valve calcification. Peak aortic valve gradient 42 mmHg. Mean aortic valve gradient 23 mmHg. Mild to moderate aortic stenosis. Pulmonic Valve Normal pulmonic valve. Great Vessels Normal aortic root. The pulmonary artery is normal size. Normal inferior vena cava. Pericardium/Pleural No pericardial effusion. Medication Diluted definity 3ml given slow IV push to enhance endocardial definition. MMode/2D Measurements & Calculations LVIDd: 4.8 cm IVSd: 1.4 cm LVOT diam: 2.0 cm LVIDs: 3.0 cm LVPWd: 1.3 cm RVDd: 4.3 cm FS: 37.1 % LVOT area: 3.1 cm2 Ao root diam: 3.3 cm LAV(MOD-bp): 91.2 ml EDV(MOD-sp4): 169.3 ml LAV(MOD-bp) Indexed: 38.6 ml/m2 ESV(MOD-sp4): 46.8 ml LAV(MOD-sp2): 77.0 ml EF(MOD-sp4): 72.3 % LAV(MOD-sp4): 91.6 ml EDV(MOD-sp2): 130.9 ml SV(MOD-sp4): 122.4 ml SV(MOD-sp2): 85.6 ml EF(MOD-sp2): 65.4 % LA dimension(2D): 4.4 cm Aortic Valve Planimetry: 1.4 cm2 LA A4 area: 28.0 cm2 RA A4 area: 25.3 cm2 Time Measurements MV dec time: 0.24 sec Doppler Measurements & Calculations MV E max ramone: 137.6 cm/sec Lat Peak E' Ramone: 9.7 cm/sec Med Peak E' Ramone: 7.3 cm/sec MV A max ramone: 111.4 cm/sec E/E' lat: 14.2 E/E' med: 18.9 MV E/A: 1.2 Ao V2 max: 327.2 cm/sec AI max ramone: 253.0 cm/sec LV V1 max: 147.4 cm/sec Ao max P.9 mmHg AI max P.2 mmHg LV V1 max P.7 mmHg Ao V2 mean: 231.6 cm/sec LV V1 mean P.9 mmHg Ao mean P.8 mmHg AI dec slope: 234.8 cm/sec2 LV V1 mean: 103.3 cm/sec Ao V2 VTI: 76.2 cm AI P1/2t: 315.7 msec LV V1 VTI: 35.4 cm VINCENT(I,D): 1.4 cm2 VINCENT(V,D): 1.4 cm2 SV(LVOT): 109.9 ml PA V2 max: 116.3 cm/sec TR max ramone: 279.4 cm/sec TR max P.3 mmHg Interpretation Summary Mild focal aortic valve calcification. Mean aortic valve gradient 23 mmHg. Mild to moderate aortic stenosis. Normal LV size. Mild concentric left ventricular hypertrophy. Left ventricular systolic function is normal. The estimated ejection fraction is 60 %. Contrast injection was performed. Ordering Physician: Ugo Almanzar Referring Physician: GEMMA FATIMA Performed By: Ange Leon, HAZELCS, RVT
[2018-11-01] MEDS: Insulin Lispro 100 UNIT/ML INSULN.PEN SQ ×2 (11:49→21:29)
[2018-11-01] MEDS: Spironolactone 50 MG Tablet 100 MG PO (11:49)
[2018-11-01 11:50] LABS: Bedside Glucose 258 mg/dL (70-110)
--- NOTE | 2018-11-01 13:28 | PN_ITS ---
<Ugo Almanzar - Last Filed: 11/01/18 13:17> Patient Problems: Active and Suspected Problems Pleural effusion (Acute) Acute chest pain (Acute) Hypoxemia (Acute) Dyspnea (Acute) Subjective: Breathing improving. somewhat lethargic on exam, drifting off to sleep during interview. Daughter present. No abdominal pain. Last BM solid formed. No N/V. No CP. - Physical Exam General: Alert, Oriented x3, Cooperative, Lethargic HEENT: Atraumatic, PERRLA, EOMI, Normocephalic Neck: Supple, No JVD, Negative Carotid Bruits Lungs: Clear to auscultation, Normal air movement Cardiovascular: Regular rate, No murmurs Abdomen: Bowel Sounds Present, Soft, Obese, Tender - RUQ Extremities: Capillary Refill Less than 3 Seconds, Edema Skin: No rashes, No breakdown Musculoskeletal: No Tenderness to Palpation of Joints or Extremities Neurological: Cranial nerves II-XII grossly intact Psych/Mental Status: Normal Affect, Appropriate Vital Signs Temp Pulse Resp BP Pulse Ox 98.4 F 59 L 16 102/40 L 99 11/01/18 08:44 11/01/18 11:09 11/01/18 11:09 11/01/18 08:44 11/01/18 11:09 Oxygen Flow Rate (L/min) 2 Oxygen Delivery Method Nasal Cannula Weight: 274 lb 7.608 oz Body Mass Index (BMI) 40.8 Finger Stick Blood Glucose 132 Intake and Output for Last 24 Hours 10/30/18 10/31/18 11/02/18 23:59 23:59 00:59 Intake Total 755 / 755 1046 / 1046 Output Total 100 / 100 Balance 755 / 755 946 / 946 Microbiology Past 72 Hours 10/31/18 16:35 Respiratory Panel (PCR) - Final Mucosa - Nose Laboratory Tests Past 24 Hrs 10/31/18 10/31/18 10/31/18 15:00 17:29 20:53 WBC RBC Hgb Hct MCV MCH MCHC RDW RDW Differential Plt Count MPV Immature Gran % (Auto) Neut % (Auto) Lymph % (Auto) [place] % (Auto) Eos % (Auto) Baso % (Auto) Absolute Neuts (auto) Absolute Lymphs (auto) Total Counted Platelet Estimate Polychromasia Hypochromasia Anisocytosis Macrocytosis Sodium Potassium Chloride Carbon Dioxide BUN Creatinine Estim Creat Clear Calc Est GFR (MDRD) Af Amer Est GFR (MDRD) Non-Af BUN/Creatinine Ratio Glucose Calcium Phosphorus Ammonia Troponin I < 0.015 < 0.015 < 0.015 Albumin 11/01/18 11/01/18 11/01/18 08:54 08:54 11:10 WBC 7.0 RBC 2.34 L Hgb 8.2 L Hct 26.5 L MCV 113.2 H MCH 35.0 H MCHC 30.9 L RDW 19.7 H RDW Differential 80.5 H Plt Count 92 L MPV 12.4 H Immature Gran % (Auto) 0.600 Neut % (Auto) 67.4 Lymph % (Auto) 16.2 L [place] % (Auto) 13.4 H Eos % (Auto) 2.3 Baso % (Auto) 0.1 Absolute Neuts (auto) 4.7 Absolute Lymphs (auto) 1.14 Total Counted Not Reportable Platelet Estimate MOD DEC Polychromasia RARE Hypochromasia 2+ Anisocytosis 1+ Macrocytosis 1+ Sodium 136 Potassium 4.6 Chloride 104 Carbon Dioxide 25.0 BUN 49 H Creatinine 1.98 H Estim Creat Clear Calc 30.25 Est GFR (MDRD) Af Amer 42 L Est GFR (MDRD) Non-Af 35 L BUN/Creatinine Ratio 24.7 H Glucose 203 H Calcium 8.0 L Phosphorus 4.4 Ammonia 42.0 H Troponin I Albumin 3.0 L POC Glucose 11/01/18 11/01/18 10/31/18 11:44 07:00 21:48 POC Glucose 258 H 148 H 134 H 10/31/18 10/31/18 16:15 12:12 POC Glucose 104 126 H Medical Necessity - Tobacco Use Smoking Status: Former smoker Tobacco Use: Non-smoker Assessment/Plan All Active Problems Pleural effusion (Acute) Acute chest pain (Acute) Hypoxemia (Acute) Dyspnea (Acute) Hyperglycemia (Acute) 1. Acute hypoxic respiratory failure 2/2 acute on chronic CHF, aortic stenosis, BL community acquired pneumonia, BL pleural effusions - continue IV abx and lasix. Pt improving already off o2 this AM. Repeat Echo. Prior echo from [facility] available for comparison On oncology note. Continue daily weights, I&Os. Fluid restrict. Trop negative x 3. Recent blood tranfusion may have contributed to exacerbation. -EF73%, Moderate aortic stenosis. AV 1.34cm2. Repeat for comparison. 2. Ascites 2/2 cirrhosis - continue lasix, lactulose, aldactone, xifaxin. Ammonia 42. 3. CKD III - trend with lasix use. Nephrology consulted. 4. Chronic anemia thrombocytopenia - oncology following 5. T2DM with morbid obesity - continue home insulin + SSI. 6. HTN - stable DVT ppx: start subq heparin 5k bid. Monitor platelets. Received 1 dose lovenox 120 mg in ER. DC planning PTOT. This patient was seen by Ugo Almanzar PA-C under the supervision of Dr. Cason. <Preeti Cason - Last Filed: 11/01/18 15:20> - Physical Exam Vital Signs Temp Pulse Resp BP Pulse Ox 98.3 F 62 20 H 109/39 L 98 11/01/18 14:53 11/01/18 14:53 11/01/18 14:53 11/01/18 14:53 11/01/18 14:53 Oxygen Flow Rate (L/min) 2 Oxygen Delivery Method Room Air Weight: 125.3 kg Body Mass Index (BMI) 40.8 Finger Stick Blood Glucose 132 Intake and Output for Last 24 Hours 10/30/18 10/31/18 11/02/18 23:59 23:59 00:59 Intake Total 755 / 755 1046 / 1046 Output Total 100 / 100 Balance 755 / 755 946 / 946 Microbiology Past 72 Hours 10/31/18 16:35 Respiratory Panel (PCR) - Final Mucosa - Nose Laboratory Tests Past 24 Hrs 10/31/18 10/31/18 10/31/18 15:00 17:29 20:53 WBC RBC Hgb Hct MCV MCH MCHC RDW RDW Differential Plt Count MPV Immature Gran % (Auto) Neut % (Auto) Lymph % (Auto) [place] % (Auto) Eos % (Auto) Baso % (Auto) Absolute Neuts (auto) Absolute Lymphs (auto) Total Counted Platelet Estimate Polychromasia Hypochromasia Anisocytosis Macrocytosis Sodium Potassium Chloride Carbon Dioxide BUN Creatinine Estim Creat Clear Calc Est GFR (MDRD) Af Amer Est GFR (MDRD) Non-Af BUN/Creatinine Ratio Glucose Calcium Phosphorus Ammonia Troponin I < 0.015 < 0.015 < 0.015 Albumin 11/01/18 11/01/18 11/01/18 08:54 08:54 11:10 WBC 7.0 RBC 2.34 L Hgb 8.2 L Hct 26.5 L MCV 113.2 H MCH 35.0 H MCHC 30.9 L RDW 19.7 H RDW Differential 80.5 H Plt Count 92 L MPV 12.4 H Immature Gran % (Auto) 0.600 Neut % (Auto) 67.4 Lymph % (Auto) 16.2 L [place] % (Auto) 13.4 H Eos % (Auto) 2.3 Baso % (Auto) 0.1 Absolute Neuts (auto) 4.7 Absolute Lymphs (auto) 1.14 Total Counted Not Reportable Platelet Estimate MOD DEC Polychromasia RARE Hypochromasia 2+ Anisocytosis 1+ Macrocytosis 1+ Sodium 136 Potassium 4.6 Chloride 104 Carbon Dioxide 25.0 BUN 49 H Creatinine 1.98 H Estim Creat Clear Calc 30.25 Est GFR (MDRD) Af Amer 42 L Est GFR (MDRD) Non-Af 35 L BUN/Creatinine Ratio 24.7 H Glucose 203 H Calcium 8.0 L Phosphorus 4.4 Ammonia 42.0 H Troponin I Albumin 3.0 L POC Glucose 11/01/18 11/01/18 10/31/18 11:44 07:00 21:48 POC Glucose 258 H 148 H 134 H 10/31/18 16:15 POC Glucose 104 Assessment/Plan This patient was seen in conjunction with GLORIA Teresa. I have independently interviewed and examined the patient and reviewed pertinent historical, laboratory, and other data. Please refer to GLORIA Teresa note for his patient's presentation, findings, and recommendations. I have reviewed and his note and concur with his documentation Patient was seen and examined. He feels almost the same. Off oxygen. Sitting up in a chair comfortable. Denies any worsening chest pain or dizziness or shortness of breath. Discussed patient with Dr. Lawrence, review of [facility] system the patient has history of moderate aortic stenosis, recommend to repeat 2D echo Physical Exam General: Alert, Oriented x3, Cooperative, No apparent distress, on oxygen HEENT: Atraumatic, PERRLA, EOMI, Normocephalic Neck: Supple Lungs: Diminished at the lung bases, no rales head Cardiovascular: Regular rate, Regular Rhythm, Normal S1, Normal S2, No murmurs Abdomen: Bowel Sounds Present, Soft, Non Tender Extremities: Edema - +1 bilateral pitting edema Skin: No rashes, No breakdown Musculoskeletal: No Tenderness to Palpation of Joints or Extremities Lymphatic: No Cervical, Supraclavicular, or Inguinal Adenopathy Neurological: Cranial nerves II-XII grossly intact Psych/Mental Status: Normal Affect, Appropriate ASSESSMENT: 1. Acute hypoxic respiratory failure secondary to bilateral pleural effusion, acute on chronic CHF, bilateral pneumonias, atelectasis, resolved 2. 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 Bilateral pneumonias, community-acquired, 4. Acute on chronic CHF, unclear the EF 5. Type II DM 6. Chronic anemia 7. 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 Liver cirrhosis with ascites and history of hepatic encephalopathy 9. Hypertension 10. Aortic stenosis Plan: 2D echo in a.m. Decrease Lasix to 20 mg IV twice daily, restriction Trend labs Continue new IV antibiotics for now Repeat chest x-ray, DC antibiotics if negative for pneumonia Code Visit Inpatient E&M: 52010 Subs Hosp L2
[2018-11-01] MEDS: Furosemide 20 MG/2 ML VIAL IV (16:10)
[2018-11-01 16:11] LABS: Bedside Glucose 124 mg/dL (70-110)
[2018-11-01] MEDS: Insulin Lispro 100 UNIT/ML INSULN.PEN SC (16:16)
[2018-11-01] MEDS: Atorvastatin Calcium 10 MG Tablet PO (21:34)
[2018-11-01] MEDS: Heparin Injection (Vial) 5,000 UNIT/ML VIAL 5000 UNIT SC (21:36)
[2018-11-01 22:06] LABS: Bedside Glucose 154 mg/dL (70-110)
[2018-11-02] VITALS (21 sets, daily range): BP systolic 104–120; BP diastolic 41–58; PULSE 59–74; RESP 16–25; TEMP 36.1–36.9; O2SAT 93–97
[2018-11-02] MEDS: Levothyroxine 25 MCG TABLET PO (05:48)
--- NOTE | 2018-11-02 05:55 | RAD_ITS ---
STUDY: X-RAY CHEST REASON FOR EXAM: Male, 78 years old. Shortness of breath/dyspnea. TECHNIQUE: AP and lateral views of the chest. COMPARISON: Comparison is made with prior study dated October 31, 2018. FINDINGS: EKG electrodes are seen. There is evidence of vascular congestion and CHF. There is been a mild degree of improvement as compared to prior study. Residual blunting of both costophrenic angles. There is mild cardiac enlargement. Normal mediastinum and jeannine. Normal visualized pulmonary arteries. There is atherosclerotic calcification of the aortic arch with tortuosity. There are diffuse degenerative changes of the visualized thoracic spine. Normal visualized ribs, clavicles, and shoulders. There is no demonstrated abnormality of the visualized soft tissue structures of the upper abdomen. RAD/Chest PA and Lateral IMPRESSION: CHF. There has been improvement as compared to prior study. Electronically Signed: Eliecer Lainez, at 11:15 EDT , Service support ,
[2018-11-02 06:36] LABS: Albumin, Serum 2.7 g/dL (3.2-5.0); BUN 49 mg/dL (7-18); BUN/Creat Ratio 27.4 RATIO (10-20); Calcium,Total 8.2 mg/dL (8.5-10.1); Chloride 104 mmol/L (98-107); Creatinine, Serum 1.79 mg/dL (0.70-1.30); EST Glomerular Filtration Rate 39 mL/min (>60); Est Glom Filt Rate - Afr Amer 47 mL/min (>60); Estimated Creatinine Clearance 33.46 ml/min; Glucose 141 mg/dL (74-106); Phosphorus 4.7 mg/dL (2.5-4.9); Potassium 4.6 mmol/L (3.5-5.1); Sodium Level 138 mmol/L (136-145)
[2018-11-02 06:44] LABS: Absolute Lymphocyte Count 1.07 X10^3/ul (0.83-4.51); Absolute Neutrophil Count 2.9 X10^3/uL (2.0-7.7); Basophil# 0.01 X10^3/uL; Basophil% 0.2 % (0-1); Eosinophil# 0.17 X10^3/uL; Eosinophils% 3.4 % (0-5); Hemoglobin 7.6 g/dl (13.0-16.5); Lymphocyte # 1.07 X10^3/ul (4.0); Lymphocyte % 21.4 % (19-41); Mean Corp Hgb Conc 30.4 g/gl (32-36); Mean Corpuscular Volume 115.2 fL (80-94); Mean Platelet Vol. 12.9 fl (6.2-12.0); Monocyte# 0.84 X10^3/uL; Monocyte% 16.8 % (0-10); Neutrophil # 2.87 X10^3/uL (2.7-7.7); Neutrophil % 57.4 % (47-70); Platelet Count 67 K/mm3 (150-450); RBC Distribution Width CV 18.7 % (11.6-14.6); RBC Distribution Width SD 75.6 fl (35.1-43.9); Red Blood Count 2.17 M/mm3 (4.6-6.2)
[2018-11-02 06:51] LABS: Differential Indicated SCAN CRITERIA MET; POSITIVE COUNT NO; POSITIVE DIFFERENTIAL NO; POSITIVE MORPHOLOGY YES
[2018-11-02 07:01] LABS: Bedside Glucose 137 mg/dL (70-110)
[2018-11-02 07:09] LABS: Anisocytosis 1+; Differential Comment SCAN; Hypochromasia 1+; Microcytosis 1+; Polychromasia 1+
[2018-11-02] MEDS: Ipratropium/Albuterol Sulfate 3 ML AMPUL.NEB INHALATION ×3 (07:11→20:09)
--- NOTE | 2018-11-02 07:18 | PCM.PN.BLA ---
Progress Note Hematology progress note: Patient known to me with cirrhosis early 2017. Underwent EGD and colonoscopy. Was referred to Dr. Oliveira. 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 Patient has been receiving Aranesp injections and periodic RBC transfusions. Maintaining Hgb ~8-9 g/dL and plts 80-90K. Interim history: Patient has no shortness of breath or chest pain this morning. Diuresed last night. Denies any bleeding or increased bruising. On exam: 78-year-old gentleman in no acute distress Vital Signs - 24 hr Temp Pulse Resp BP Pulse Ox 11/02/18 03:00 63 11/02/18 02:47 97.2 F L 63 18 118/58 L 93 11/01/18 23:00 66 11/01/18 20:44 97.2 F L 62 18 121/58 H 95 11/01/18 19:00 61 11/01/18 18:52 66 16 11/01/18 15:17 63 11/01/18 14:53 98.3 F 62 20 H 109/39 L 98 11/01/18 14:44 68 16 11/01/18 11:09 59 L 16 99 11/01/18 11:06 60 11/01/18 08:44 98.4 F 62 20 H 102/40 L 94 Chest: Diminished breath sounds lung bases no rales CV: Regular rate and rhythm grade 2/6 systolic murmur right sternal border Abdomen: Obese, nontender, nondistended Extremities: +1 edema Laboratory Results - last 24 hr 11/01/18 11/01/18 11/01/18 08:54 08:54 11:10 WBC 7.0 RBC 2.34 L Hgb 8.2 L Hct 26.5 L MCV 113.2 H MCH 35.0 H MCHC 30.9 L RDW 19.7 H RDW Differential 80.5 H Plt Count 92 L MPV 12.4 H Immature Gran % (Auto) 0.600 Neut % (Auto) 67.4 Lymph % (Auto) 16.2 L [place] % (Auto) 13.4 H Eos % (Auto) 2.3 Baso % (Auto) 0.1 Absolute Neuts (auto) 4.7 Absolute Lymphs (auto) 1.14 Total Counted Not Reportable Differential Comment Platelet Estimate MOD DEC Polychromasia RARE Hypochromasia 2+ Anisocytosis 1+ Microcytosis Macrocytosis 1+ Sodium 136 Potassium 4.6 Chloride 104 Carbon Dioxide 25.0 BUN 49 H Creatinine 1.98 H Estim Creat Clear Calc 30.25 Est GFR (MDRD) Af Amer 42 L Est GFR (MDRD) Non-Af 35 L BUN/Creatinine Ratio 24.7 H Glucose 203 H Calcium 8.0 L Phosphorus 4.4 Ammonia 42.0 H Albumin 3.0 L POC Glucose 11/01/18 11/01/18 11/01/18 11:44 16:06 21:27 WBC RBC Hgb Hct MCV MCH MCHC RDW RDW Differential Plt Count MPV Immature Gran % (Auto) Neut % (Auto) Lymph % (Auto) [place] % (Auto) Eos % (Auto) Baso % (Auto) Absolute Neuts (auto) Absolute Lymphs (auto) Total Counted Differential Comment Platelet Estimate Polychromasia Hypochromasia Anisocytosis Microcytosis Macrocytosis Sodium Potassium Chloride Carbon Dioxide BUN Creatinine Estim Creat Clear Calc Est GFR (MDRD) Af Amer Est GFR (MDRD) Non-Af BUN/Creatinine Ratio Glucose Calcium Phosphorus Ammonia Albumin POC Glucose 258 H 124 H 154 H 11/02/18 11/02/18 11/02/18 05:25 05:25 06:49 WBC 5.0 RBC 2.17 L Hgb 7.6 L Hct 25.0 L MCV 115.2 H MCH 35.0 H MCHC 30.4 L RDW 18.7 H RDW Differential 75.6 H Plt Count 67 L MPV 12.9 H Immature Gran % (Auto) 0.800 Neut % (Auto) 57.4 Lymph % (Auto) 21.4 [place] % (Auto) 16.8 H Eos % (Auto) 3.4 Baso % (Auto) 0.2 Absolute Neuts (auto) 2.9 Absolute Lymphs (auto) 1.07 Total Counted Not Reportable Differential Comment SCAN Platelet Estimate Polychromasia 1+ Hypochromasia 1+ Anisocytosis 1+ Microcytosis 1+ Macrocytosis Sodium 138 Potassium 4.6 Chloride 104 Carbon Dioxide 26.0 BUN 49 H Creatinine 1.79 H Estim Creat Clear Calc 33.46 Est GFR (MDRD) Af Amer 47 L Est GFR (MDRD) Non-Af 39 L BUN/Creatinine Ratio 27.4 H Glucose 141 H Calcium 8.2 L Phosphorus 4.7 Ammonia Albumin 2.7 L POC Glucose 137 H Impression/Plan: 1) anemia chronic disease secondary to stage III CRF -Transfuse if Hbg < 8.0 -Repeat reticulocyte count, iron / TIBC and vitamin B12. -Continue Aranesp as outpatient 2) cirrhosis/liver failure -Start lactulose & repeat ammonia level -Follow-up with GI/hepatology ( Dr. Bowman ) 3) secondary thrombocytopenia & elevated prothrombin time -Vitamin K 10mg po x 1 -Check von Willebrand activity level -Check stool for Hemoccult 4) congestive heart failure secondary to above and critical aortic stenosis -Repeat 2D echocardiogram and consult cardiology -Gentle diuresis -Consider palliative care consultation for congestive heart failure, liver failure and kidney failure. cc: Dr. Shanna Oliveira, Dr. Pal Augustine, Day Solis Janet [employer]-C
[2018-11-02 07:33] LABS: Immature Platelet Fraction 14.4 % (1.0-7.9)
[2018-11-02 07:55] LABS: Iron 50 ug/dL (65-175); Iron Binding Capacity,Total 317 ug/dL (250-450); PERCENT IRON SATURATION 15.8 % (15.0-55.0)
[2018-11-02] MEDS: Insulin Lispro 100 UNIT/ML INSULN.PEN SC ×3 (08:08→16:40)
[2018-11-02] MEDS: Ferrous Sulfate 325 MG Tablet PO (08:10)
--- NOTE | 2018-11-02 08:42 | PCM.CONS.R ---
Consultation - Renal 11/02/18 PCP/ Referring MD: Requesting physician: [] Primary care physician: ALBERTO Delgadillo Reason for Consultation:: CKD stage 3 fluid overload - History of Present Illness History of Present Illness: The patient is a 78 year old M known to me with CKD stage III due to diabetes and hypertension last seen in my office on October 22 with baseline creatinine 1.7-2.0. He presents with chest pain and shortness of breath with increased edema despite Lasix 80 mg daily. He is also on spironolactone that was recently decreased from 100 mg to 50 mg for elevated potassium level of 5.0 on 10/06/18. Chest x-ray revealed bilateral pleural effusion right greater than the left. He had anorexia and nausea for a day. He has moderate aortic stenosis found on echocardiogram from 2018. He was scheduled to follow-up with Dr. Bee next month for repeat echo. His past medical history is significant for chronic anemia and thrombocytopenia on ZAHIDA therapy managed by hematology, history of GI bleed and liver cirrhosis followed by Dr. Bowman. He requires frequent blood transfusions managed by hematology. His most recent blood transfusion was October 28. Hemoglobin dropped to 7.6g today with platelet of 60 7K. His edema and shortness of breath has improved. He denies any further chest pain. He was started on IV antibiotic therapy for possible pneumonia found on chest x-ray. He also had a CT of the chest without IV contrast on admission. He denied fever or chills. He lives with his daughter who is his digital media director. He is a poor historian. Extensive chart reviewed from [facility]. - Allergies Allergies: Allergies No Known Allergies Allergy (Verified 10/31/18 10:19) - Current Medications Current Medications: Current Medications Albuterol Sulfate (Ventolin Aerosols) 2.5 mg INHALATION Q2H PRN PRN PRN Reason: SOB &/OR WHEEZING Albuterol/Ipratropium (Duoneb) 3 ml INHALATION Q4HWA.RT REJI Last Admin: 11/02/18 07:11 Dose: 3 ml Atorvastatin Calcium (Lipitor) 10 mg PO QHS REJI Last Admin: 11/01/18 21:34 Dose: 10 mg Calamine/Phenol (Calmoseptine Ointment) 1 applic TOPICAL BID REJI; Protocol Dextrose (D50w Syringe) 0 gm IV X1 PRN; Protocol PRN Reason: Hypoglycemia Ferrous Sulfate (Ferrous Sulfate) 325 mg PO DAILYCM [facility] Last Admin: 11/02/18 08:10 Dose: 325 mg Furosemide (Lasix) 20 mg IV BID@1000,1800 [facility] Last Admin: 11/01/18 16:10 Dose: 20 mg Furosemide (Lasix) 40 mg IV X1 ONE Stop: 11/02/18 08:40 Glucagon () 1 mg IM .X1 PRN PRN Reason: Hypoglycemia Heparin Sodium (Porcine) (Heparin Na) 5,000 unit SC Q12 [facility] Last Admin: 11/01/18 21:36 Dose: 5,000 unit Ceftriaxone Sodium (Rocephin) 1 gm in 50 mls @ 100 mls/hr IV Q24 [facility] Last Admin: 11/01/18 09:52 Dose: 100 mls/hr Azithromycin 500 mg/ Dextrose 255 mls @ 250 mls/hr IV Q24 [facility] Last Admin: 11/01/18 09:52 Dose: 250 mls/hr Iron Sucrose 200 mg/ Sodium (Chloride) 110 mls @ 220 mls/hr IV X1 ONE Stop: 11/02/18 09:09 Insulin Glargine (Lantus (Bkc)) 5 units SC BID [facility] Last Admin: 11/01/18 21:31 Dose: 5 u Insulin Human Lispro (Humalog Kwikpen (Bkc)) 0 unit SQ ACHS [facility]; Protocol Last Admin: 11/02/18 08:03 Dose: Not Given Insulin Human Lispro (Humalog Kwikpen (Bkc)) 5 unit SC TIDAC [facility] Last Admin: 11/02/18 08:08 Dose: 5 u Lactulose (Chronulac, Cephulac) 20 gm PO DAILY [facility] Last Admin: 11/01/18 09:53 Dose: 20 gm Levothyroxine Sodium (Synthroid) 25 mcg PO DAILY@0600 [facility] Last Admin: 11/02/18 05:48 Dose: 25 mcg Loratadine (Claritin) 10 mg PO DAILY PRN PRN PRN Reason: bowels Meclizine HCl (Antivert) 25 mg PO TID PRN PRN PRN Reason: DIZZINESS Pantoprazole Sodium (Protonix) 40 mg PO DAILY [facility] Last Admin: 11/01/18 09:52 Dose: 40 mg Propranolol HCl (Inderal) 40 mg PO DAILY [facility] Last Admin: 11/01/18 10:18 Dose: Not Given Rifaximin (Xifaxan) 550 mg PO BID [facility] Last Admin: 11/01/18 21:34 Dose: 550 mg Sodium Chloride () 5 - 15 ml IV UD PRN PRN Reason: SALINE FLUSH Last Admin: 11/01/18 09:52 Dose: 10 ml Spironolactone (Aldactone) 100 mg PO DAILY [facility] Last Admin: 11/01/18 11:49 Dose: 100 mg - Past Medical History Past Medical History (Chronic Problems): Chronic Problems Aortic stenosis (Chronic) Chronic anemia (Chronic) Type 2 diabetes mellitus (Chronic) Hyperlipidemia (Chronic) Liver cirrhosis (Chronic) Chronic kidney disease, stage III (moderate) (Chronic) CKD (chronic kidney disease) (Chronic) HTN (hypertension) (Chronic) - Past Surgical History Surgical History: - - prostate surgery, hernia surgery, circumcision - Social History Smoking Status: Former smoker Alcohol: None Drugs: None - Family History Maternal History Items: Diabetes Paternal History Items: Cancer - Prostate Review of Systems Constitutional: Reports: Anorexia, Weakness - Chronic. Denies: Chills, Fever Eyes: Denies: Vision Change HEENT: Denies: Head Aches Cardiovascular: Reports: Chest Pain - Resolved, Edema - Improving, Light Headedness. Denies: Syncope Respiratory: Reports: Cough, Shortness of Breath, Shortness of breath at rest, Shortness of breath upon exertion Gastrointestinal: Reports: Nausea. Denies: Abdominal Pain - Dry heaves, Constipation, Diarrhea, Vomiting Genitourinary: Denies: Dysuria Skin: Denies: Rash Psychiatric: Reports: Anxiety, Depression Hematologic/ Lymphatic: Reports: Anemia, Hx of blood transfusion - On ZAHIDA therapy managed by hematology Patient Problems: Active and Suspected Problems Pleural effusion (Acute) Acute chest pain (Acute) Hypoxemia (Acute) Dyspnea (Acute) - Physical Exam General: Alert, Oriented x3, Cooperative, - - Poor historian HEENT: PERRLA, EOMI Oral: Dry Mucosa Neck: Supple Lungs: Clear to auscultation, Diminished Cardiovascular: Regular rate, Murmur, No rub noted Abdomen: Bowel Sounds Present, Soft, Non Tender, Distended, Obese Extremities: Edema - Improving Skin: No rashes Musculoskeletal: No Muscle Wasting Neurological: - - Debilitated generalized weakness Psych/Mental Status: Flat Affect - Baseline affect, Alert and oriented to time, place, person, mood and affect Vital Signs Temp Pulse Resp BP Pulse Ox 97.9 F 60 16 117/51 L 93 11/02/18 07:39 11/02/18 07:39 11/02/18 07:39 11/02/18 07:39 11/02/18 07:47 Oxygen Flow Rate (L/min) 2 Oxygen Delivery Method Room Air Weight: 124.1 kg Body Mass Index (BMI) 40.8 Finger Stick Blood Glucose 132 Intake and Output for Last 24 Hours 10/31/18 11/01/18 11/02/18 22:59 23:59 23:59 Intake Total 120 / 120 Output Total Balance 120 / 120 Microbiology Past 72 Hours 10/31/18 16:35 Respiratory Panel (PCR) - Final Mucosa - Nose Laboratory Tests Past 24 Hrs 11/01/18 11/01/18 11/01/18 08:54 08:54 11:10 WBC 7.0 RBC 2.34 L Hgb 8.2 L Hct 26.5 L MCV 113.2 H MCH 35.0 H MCHC 30.9 L RDW 19.7 H RDW Differential 80.5 H Plt Count 92 L MPV 12.4 H Immature Gran % (Auto) 0.600 Neut % (Auto) 67.4 Lymph % (Auto) 16.2 L [place] % (Auto) 13.4 H Eos % (Auto) 2.3 Baso % (Auto) 0.1 Absolute Neuts (auto) 4.7 Absolute Lymphs (auto) 1.14 Total Counted Not Reportable Differential Comment Platelet Estimate MOD DEC Immature Plt Fraction Polychromasia RARE Hypochromasia 2+ Anisocytosis 1+ Microcytosis Macrocytosis 1+ Retic Count Immature Retic Fraction Retic Hgb Equivalent Sodium 136 Potassium 4.6 Chloride 104 Carbon Dioxide 25.0 BUN 49 H Creatinine 1.98 H Estim Creat Clear Calc 30.25 Est GFR (MDRD) Af Amer 42 L Est GFR (MDRD) Non-Af 35 L BUN/Creatinine Ratio 24.7 H Glucose 203 H Calcium 8.0 L Phosphorus 4.4 Iron TIBC Iron Saturation Ammonia 42.0 H Albumin 3.0 L 11/02/18 11/02/18 11/02/18 05:25 05:25 05:25 WBC 5.0 RBC 2.17 L Hgb 7.6 L Hct 25.0 L MCV 115.2 H MCH 35.0 H MCHC 30.4 L RDW 18.7 H RDW Differential 75.6 H Plt Count 67 L MPV 12.9 H Immature Gran % (Auto) 0.800 Neut % (Auto) 57.4 Lymph % (Auto) 21.4 [place] % (Auto) 16.8 H Eos % (Auto) 3.4 Baso % (Auto) 0.2 Absolute Neuts (auto) 2.9 Absolute Lymphs (auto) 1.07 Total Counted Not Reportable Differential Comment SCAN Platelet Estimate Immature Plt Fraction 14.4 H Polychromasia 1+ Hypochromasia 1+ Anisocytosis 1+ Microcytosis 1+ Macrocytosis Retic Count 3.30 H Immature Retic Fraction 16.70 H Retic Hgb Equivalent 30.0 Sodium 138 Potassium 4.6 Chloride 104 Carbon Dioxide 26.0 BUN 49 H Creatinine 1.79 H Estim Creat Clear Calc 33.46 Est GFR (MDRD) Af Amer 47 L Est GFR (MDRD) Non-Af 39 L BUN/Creatinine Ratio 27.4 H Glucose 141 H Calcium 8.2 L Phosphorus 4.7 Iron TIBC Iron Saturation Ammonia Albumin 2.7 L 11/02/18 05:25 WBC RBC Hgb Hct MCV MCH MCHC RDW RDW Differential Plt Count MPV Immature Gran % (Auto) Neut % (Auto) Lymph % (Auto) [place] % (Auto) Eos % (Auto) Baso % (Auto) Absolute Neuts (auto) Absolute Lymphs (auto) Total Counted Differential Comment Platelet Estimate Immature Plt Fraction Polychromasia Hypochromasia Anisocytosis Microcytosis Macrocytosis Retic Count Immature Retic Fraction Retic Hgb Equivalent Sodium Potassium Chloride Carbon Dioxide BUN Creatinine Estim Creat Clear Calc Est GFR (MDRD) Af Amer Est GFR (MDRD) Non-Af BUN/Creatinine Ratio Glucose Calcium Phosphorus Iron 50 L TIBC 317 Iron Saturation 15.8 Ammonia Albumin POC Glucose 11/02/18 11/01/18 11/01/18 06:49 21:27 16:06 POC Glucose 137 H 154 H 124 H 11/01/18 11:44 POC Glucose 258 H Clinical Impression(s) from Imaging Studies Chest X-Ray 10/31/18 10:07 IMPRESSION: Increasing prominence of lung markings which could be worsening fibrosis or congestion. Atelectasis or infiltrate in the lung bases. Electronically Signed: Shiv Sepulveda MD at 10:26 EST , Service support , Chest CT 10/31/18 10:52 IMPRESSION: Limited by motion. Congestion and pulmonary edema. Bilateral pleural effusions worse on the right. Prominent atelectasis and possible infiltrates in both lower lobes worse on the right. Electronically Signed: Shiv Sepulveda MD at 11:37 EST , Service support , Assessment/Plan All Active Problems Pleural effusion (Acute) Acute chest pain (Acute) Hypoxemia (Acute) Dyspnea (Acute) Hyperglycemia (Acute) 1. CKD stage III due to diabetes and hypertensive nephropathy. Urine protein trace. Renal function at baseline creatinine of 1.7-2.0 2. CHF with bilateral pleural effusion. Preserved LV function, diastolic heart failure with moderate aortic stenosis likely contributing to chronic fluid overload on diuretic therapy at home. Edema and shortness of breath has improved with IV Lasix. Consider switching to oral Lasix 40 mg twice a day. 3. History of hyperkalemia on Aldactone. Potassium level stable currently on Aldactone 100 mg a day 4. Chronic anemia requiring ZAHIDA therapy and blood transfusions managed by hematology. Last blood transfusion on October 28 as outpatient. This may have contributed to his worsening edema. Hemoglobin now at 7.6g will likely need another blood transfusion. Recommend Lasix 40 mg IV following blood transfusion. 5. DM type II primary service management 6. Hypertension with stable blood pressures 7. CARBAJAL cirrhosis with thrombocytopenia, splenomegaly
--- NOTE | 2018-11-02 08:47 | CON.PCM_ITS ---
Consultation - Renal 11/02/18 PCP/ Referring MD: Requesting physician: [] Primary care physician: ALBERTO Delgadillo Reason for Consultation:: CKD stage 3 fluid overload - History of Present Illness History of Present Illness: The patient is a 78 year old M known to me with CKD stage III due to diabetes and hypertension last seen in my office on October 22 with baseline creatinine 1.7-2.0. He presents with chest pain and shortness of breath with increased edema despite Lasix 80 mg daily. He is also on spironolactone that was recently decreased from 100 mg to 50 mg for elevated potassium level of 5.0 on 10/06/18. Chest x-ray revealed bilateral pleural effusion right greater than the left. He had anorexia and nausea for a day. He has moderate aortic stenosis found on echocardiogram from 2018. He was scheduled to follow-up with Dr. Bee next month for repeat echo. His past medical history is significant for chronic anemia and thrombocytopenia on ZAHIDA therapy managed by hematology, history of GI bleed and liver cirrhosis followed by Dr. Bowman. He requires frequent blood transfusions managed by hematology. His most recent blood transfusion was October 28. Hemoglobin dropped to 7.6g today with platelet of 60 7K. His edema and shortness of breath has improved. He denies any further chest pain. He was started on IV antibiotic therapy for possible pneumonia found on chest x-ray. He also had a CT of the chest without IV contrast on admission. He denied fever or chills. He lives with his daughter who is his continuous improvement coach. He is a poor historian. Extensive chart reviewed from [facility]. - Allergies Allergies: Allergies No Known Allergies Allergy (Verified 10/31/18 10:19) - Current Medications Current Medications: Current Medications Albuterol Sulfate (Ventolin Aerosols) 2.5 mg INHALATION Q2H PRN PRN PRN Reason: SOB &/OR WHEEZING Albuterol/Ipratropium (Duoneb) 3 ml INHALATION Q4HWA.RT REJI Last Admin: 11/02/18 07:11 Dose: 3 ml Atorvastatin Calcium (Lipitor) 10 mg PO QHS REJI Last Admin: 11/01/18 21:34 Dose: 10 mg Calamine/Phenol (Calmoseptine Ointment) 1 applic TOPICAL BID REJI; Protocol Dextrose (D50w Syringe) 0 gm IV X1 PRN; Protocol PRN Reason: Hypoglycemia Ferrous Sulfate (Ferrous Sulfate) 325 mg PO DAILYCM [facility] Last Admin: 11/02/18 08:10 Dose: 325 mg Furosemide (Lasix) 20 mg IV BID@1000,1800 [facility] Last Admin: 11/01/18 16:10 Dose: 20 mg Furosemide (Lasix) 40 mg IV X1 ONE Stop: 11/02/18 08:40 Glucagon () 1 mg IM .X1 PRN PRN Reason: Hypoglycemia Heparin Sodium (Porcine) (Heparin Na) 5,000 unit SC Q12 [facility] Last Admin: 11/01/18 21:36 Dose: 5,000 unit Ceftriaxone Sodium (Rocephin) 1 gm in 50 mls @ 100 mls/hr IV Q24 [facility] Last Admin: 11/01/18 09:52 Dose: 100 mls/hr Azithromycin 500 mg/ Dextrose 255 mls @ 250 mls/hr IV Q24 [facility] Last Admin: 11/01/18 09:52 Dose: 250 mls/hr Iron Sucrose 200 mg/ Sodium (Chloride) 110 mls @ 220 mls/hr IV X1 ONE Stop: 11/02/18 09:09 Insulin Glargine (Lantus (Bkc)) 5 units SC BID [facility] Last Admin: 11/01/18 21:31 Dose: 5 u Insulin Human Lispro (Humalog Kwikpen (Bkc)) 0 unit SQ ACHS [facility]; Protocol Last Admin: 11/02/18 08:03 Dose: Not Given Insulin Human Lispro (Humalog Kwikpen (Bkc)) 5 unit SC TIDAC [facility] Last Admin: 11/02/18 08:08 Dose: 5 u Lactulose (Chronulac, Cephulac) 20 gm PO DAILY [facility] Last Admin: 11/01/18 09:53 Dose: 20 gm Levothyroxine Sodium (Synthroid) 25 mcg PO DAILY@0600 [facility] Last Admin: 11/02/18 05:48 Dose: 25 mcg Loratadine (Claritin) 10 mg PO DAILY PRN PRN PRN Reason: bowels Meclizine HCl (Antivert) 25 mg PO TID PRN PRN PRN Reason: DIZZINESS Pantoprazole Sodium (Protonix) 40 mg PO DAILY [facility] Last Admin: 11/01/18 09:52 Dose: 40 mg Propranolol HCl (Inderal) 40 mg PO DAILY [facility] Last Admin: 11/01/18 10:18 Dose: Not Given Rifaximin (Xifaxan) 550 mg PO BID [facility] Last Admin: 11/01/18 21:34 Dose: 550 mg Sodium Chloride () 5 - 15 ml IV UD PRN PRN Reason: SALINE FLUSH Last Admin: 11/01/18 09:52 Dose: 10 ml Spironolactone (Aldactone) 100 mg PO DAILY [facility] Last Admin: 11/01/18 11:49 Dose: 100 mg - Past Medical History Past Medical History (Chronic Problems): Chronic Problems Aortic stenosis (Chronic) Chronic anemia (Chronic) Type 2 diabetes mellitus (Chronic) Hyperlipidemia (Chronic) Liver cirrhosis (Chronic) Chronic kidney disease, stage III (moderate) (Chronic) CKD (chronic kidney disease) (Chronic) HTN (hypertension) (Chronic) - Past Surgical History Surgical History: - - prostate surgery, hernia surgery, circumcision - Social History Smoking Status: Former smoker Alcohol: None Drugs: None - Family History Maternal History Items: Diabetes Paternal History Items: Cancer - Prostate Review of Systems Constitutional: Reports: Anorexia, Weakness - Chronic. Denies: Chills, Fever Eyes: Denies: Vision Change HEENT: Denies: Head Aches Cardiovascular: Reports: Chest Pain - Resolved, Edema - Improving, Light Headedness. Denies: Syncope Respiratory: Reports: Cough, Shortness of Breath, Shortness of breath at rest, Shortness of breath upon exertion Gastrointestinal: Reports: Nausea. Denies: Abdominal Pain - Dry heaves, Constipation, Diarrhea, Vomiting Genitourinary: Denies: Dysuria Skin: Denies: Rash Psychiatric: Reports: Anxiety, Depression Hematologic/ Lymphatic: Reports: Anemia, Hx of blood transfusion - On ZAHIDA therapy managed by hematology Patient Problems: Active and Suspected Problems Pleural effusion (Acute) Acute chest pain (Acute) Hypoxemia (Acute) Dyspnea (Acute) - Physical Exam General: Alert, Oriented x3, Cooperative, - - Poor historian HEENT: PERRLA, EOMI Oral: Dry Mucosa Neck: Supple Lungs: Clear to auscultation, Diminished Cardiovascular: Regular rate, Murmur, No rub noted Abdomen: Bowel Sounds Present, Soft, Non Tender, Distended, Obese Extremities: Edema - Improving Skin: No rashes Musculoskeletal: No Muscle Wasting Neurological: - - Debilitated generalized weakness Psych/Mental Status: Flat Affect - Baseline affect, Alert and oriented to time, place, person, mood and affect Vital Signs Temp Pulse Resp BP Pulse Ox 97.9 F 60 16 117/51 L 93 11/02/18 07:39 11/02/18 07:39 11/02/18 07:39 11/02/18 07:39 11/02/18 07:47 Oxygen Flow Rate (L/min) 2 Oxygen Delivery Method Room Air Weight: 124.1 kg Body Mass Index (BMI) 40.8 Finger Stick Blood Glucose 132 Intake and Output for Last 24 Hours 10/31/18 11/01/18 11/02/18 22:59 23:59 23:59 Intake Total 120 / 120 Output Total Balance 120 / 120 Microbiology Past 72 Hours 10/31/18 16:35 Respiratory Panel (PCR) - Final Mucosa - Nose Laboratory Tests Past 24 Hrs 11/01/18 11/01/18 11/01/18 08:54 08:54 11:10 WBC 7.0 RBC 2.34 L Hgb 8.2 L Hct 26.5 L MCV 113.2 H MCH 35.0 H MCHC 30.9 L RDW 19.7 H RDW Differential 80.5 H Plt Count 92 L MPV 12.4 H Immature Gran % (Auto) 0.600 Neut % (Auto) 67.4 Lymph % (Auto) 16.2 L [place] % (Auto) 13.4 H Eos % (Auto) 2.3 Baso % (Auto) 0.1 Absolute Neuts (auto) 4.7 Absolute Lymphs (auto) 1.14 Total Counted Not Reportable Differential Comment Platelet Estimate MOD DEC Immature Plt Fraction Polychromasia RARE Hypochromasia 2+ Anisocytosis 1+ Microcytosis Macrocytosis 1+ Retic Count Immature Retic Fraction Retic Hgb Equivalent Sodium 136 Potassium 4.6 Chloride 104 Carbon Dioxide 25.0 BUN 49 H Creatinine 1.98 H Estim Creat Clear Calc 30.25 Est GFR (MDRD) Af Amer 42 L Est GFR (MDRD) Non-Af 35 L BUN/Creatinine Ratio 24.7 H Glucose 203 H Calcium 8.0 L Phosphorus 4.4 Iron TIBC Iron Saturation Ammonia 42.0 H Albumin 3.0 L 11/02/18 11/02/18 11/02/18 05:25 05:25 05:25 WBC 5.0 RBC 2.17 L Hgb 7.6 L Hct 25.0 L MCV 115.2 H MCH 35.0 H MCHC 30.4 L RDW 18.7 H RDW Differential 75.6 H Plt Count 67 L MPV 12.9 H Immature Gran % (Auto) 0.800 Neut % (Auto) 57.4 Lymph % (Auto) 21.4 [place] % (Auto) 16.8 H Eos % (Auto) 3.4 Baso % (Auto) 0.2 Absolute Neuts (auto) 2.9 Absolute Lymphs (auto) 1.07 Total Counted Not Reportable Differential Comment SCAN Platelet Estimate Immature Plt Fraction 14.4 H Polychromasia 1+ Hypochromasia 1+ Anisocytosis 1+ Microcytosis 1+ Macrocytosis Retic Count 3.30 H Immature Retic Fraction 16.70 H Retic Hgb Equivalent 30.0 Sodium 138 Potassium 4.6 Chloride 104 Carbon Dioxide 26.0 BUN 49 H Creatinine 1.79 H Estim Creat Clear Calc 33.46 Est GFR (MDRD) Af Amer 47 L Est GFR (MDRD) Non-Af 39 L BUN/Creatinine Ratio 27.4 H Glucose 141 H Calcium 8.2 L Phosphorus 4.7 Iron TIBC Iron Saturation Ammonia Albumin 2.7 L 11/02/18 05:25 WBC RBC Hgb Hct MCV MCH MCHC RDW RDW Differential Plt Count MPV Immature Gran % (Auto) Neut % (Auto) Lymph % (Auto) [place] % (Auto) Eos % (Auto) Baso % (Auto) Absolute Neuts (auto) Absolute Lymphs (auto) Total Counted Differential Comment Platelet Estimate Immature Plt Fraction Polychromasia Hypochromasia Anisocytosis Microcytosis Macrocytosis Retic Count Immature Retic Fraction Retic Hgb Equivalent Sodium Potassium Chloride Carbon Dioxide BUN Creatinine Estim Creat Clear Calc Est GFR (MDRD) Af Amer Est GFR (MDRD) Non-Af BUN/Creatinine Ratio Glucose Calcium Phosphorus Iron 50 L TIBC 317 Iron Saturation 15.8 Ammonia Albumin POC Glucose 11/02/18 11/01/18 11/01/18 06:49 21:27 16:06 POC Glucose 137 H 154 H 124 H 11/01/18 11:44 POC Glucose 258 H Clinical Impression(s) from Imaging Studies Chest X-Ray 10/31/18 10:07 IMPRESSION: Increasing prominence of lung markings which could be worsening fibrosis or congestion. Atelectasis or infiltrate in the lung bases. Electronically Signed: Shiv Sepulveda MD at 10:26 EST , Service support , Chest CT 10/31/18 10:52 IMPRESSION: Limited by motion. Congestion and pulmonary edema. Bilateral pleural effusions worse on the right. Prominent atelectasis and possible infiltrates in both lower lobes worse on the right. Electronically Signed: Shiv Sepulveda MD at 11:37 EST , Service support , Assessment/Plan All Active Problems Pleural effusion (Acute) Acute chest pain (Acute) Hypoxemia (Acute) Dyspnea (Acute) Hyperglycemia (Acute) 1. CKD stage III due to diabetes and hypertensive nephropathy. Urine protein trace. Renal function at baseline creatinine of 1.7-2.0 2. CHF with bilateral pleural effusion. Preserved LV function, diastolic heart failure with moderate aortic stenosis likely contributing to chronic fluid overload on diuretic therapy at home. Edema and shortness of breath has improved with IV Lasix. Consider switching to oral Lasix 40 mg twice a day. 3. History of hyperkalemia on Aldactone. Potassium level stable currently on Aldactone 100 mg a day 4. Chronic anemia requiring ZAHIDA therapy and blood transfusions managed by hematology. Last blood transfusion on October 28 as outpatient. This may have contributed to his worsening edema. Hemoglobin now at 7.6g will likely need another blood transfusion. Recommend Lasix 40 mg IV following blood transfusion. 5. DM type II primary service management 6. Hypertension with stable blood pressures 7. CARBAJAL cirrhosis with thrombocytopenia, splenomegaly
[2018-11-02] MEDS: Ceftriaxone 1 GM/50 ML BAG IV (09:17)
[2018-11-02] MEDS: 0.9% NaCl Peripheral Flush Adult/Peds IV ×2 (09:18→17:50)
[2018-11-02] MEDS: Furosemide 40 MG/4 ML Vial IV (09:33)
[2018-11-02] MEDS: Spironolactone 50 MG Tablet 100 MG PO (09:44)
[2018-11-02] MEDS: Menthol/Lanolin/Calamine/Znox 113 GM Tube 1 APPLIC TOPICAL ×2 (09:45→22:33)
[2018-11-02] MEDS: Lactulose 20 GM/30 ML UDC PO (09:45)
[2018-11-02] MEDS: Propranolol 40 MG Tablet PO (09:46)
[2018-11-02] MEDS: rifAXIMin 550 MG Tablet PO ×2 (09:47→22:33)
[2018-11-02] MEDS: Pantoprazole Sodium 40 MG Tablet PO (09:47)
--- NOTE | 2018-11-02 09:49 | CASEMGMT ---
Received a message from Awilda at [facility]. She requested a call when SW knows a d/c plan. Kate ALEJANDRA MSW
[2018-11-02 10:00] LABS: Vitamin B12 728 pg/mL (211-911)
[2018-11-02 11:45] LABS: Bedside Glucose 242 mg/dL (70-110)
[2018-11-02] MEDS: Insulin Lispro 100 UNIT/ML INSULN.PEN SQ (12:11)
--- NOTE | 2018-11-02 12:43 | CASEMGMT ---
RN BRIGIDA Assessment Presentation:Jose pleural effusions, CHF. On RA presently, IV Zithromax, Rocephin, Lasix 20 mg IV. Intro role of CM and purpose of RN CM assessment to patient and his daughter. Pt is able to participate in assessment and daughter also is able to add information. Daughter states she cares for him at home. PCP: Kayla Bernstein Preferred [facility]acy: [facility] Insurance: [employer] [facility] Prescription Benefit: yes LNOK: Addie Meza, daughter. Living Arrangements: Pt lives with daughter who is his caregiver in studio apartment in basement. No steps to navigate. Transportation: Daughter drives pt. States he is able to ambulate with walker to her vehicle DME: walker, cane rollator. No oxygen or cpap used. Passport Services: Awilda ALLRED RN, CM called to intake dept for care information, and message left for Awilda. Pt has 16 hours/week of services through [facility] . Called to [facility] to notify of admission. Daughter has already contacted and is keeping them apprised of his stay. HHC: no skilled care @ this time. DC PLAN: anticipate home on discharge with resumption of Passport Services through [facility]. Cinthia ANDREA RN ACM
--- NOTE | 2018-11-02 13:23 | PN_ITS ---
Patient Problems: Active and Suspected Problems Pleural effusion (Acute) Acute chest pain (Acute) Hypoxemia (Acute) Dyspnea (Acute) Subjective: Breathing improving. Still some chest heaviness. No Abd pain or distention. LE edema improved. No fever/chills. Does have cough productive of white sputum. - Physical Exam General: Alert, Oriented x3, Cooperative HEENT: Atraumatic, PERRLA, EOMI, Normocephalic Neck: Supple, No JVD, Negative Carotid Bruits Lungs: Diminished Cardiovascular: Regular rate, No murmurs Abdomen: Bowel Sounds Present, Soft, Non Tender Extremities: Capillary Refill Less than 3 Seconds, Edema - less so than yesterday Skin: No rashes, No breakdown Musculoskeletal: No Tenderness to Palpation of Joints or Extremities Neurological: Cranial nerves II-XII grossly intact Psych/Mental Status: Normal Affect, Appropriate, Alert and oriented to time, place, person, mood and affect Vital Signs Temp Pulse Resp BP Pulse Ox 98.2 F 69 17 114/49 L 96 11/02/18 09:15 11/02/18 10:59 11/02/18 09:15 11/02/18 09:15 11/02/18 09:15 Oxygen Flow Rate (L/min) 2 Oxygen Delivery Method Room Air Weight: 273 lb 9.498 oz Body Mass Index (BMI) 40.8 Finger Stick Blood Glucose 132 Intake and Output for Last 24 Hours 10/31/18 11/01/18 11/02/18 22:59 23:59 23:59 Intake Total 916 / 916 Output Total 300 / 300 Balance 616 / 616 Microbiology Past 72 Hours 10/31/18 16:35 Respiratory Panel (PCR) - Final Mucosa - Nose Laboratory Tests Past 24 Hrs 10/31/18 11/02/18 11/02/18 10:00 05:25 05:25 WBC 5.0 RBC 2.17 L Hgb 7.6 L Hct 25.0 L MCV 115.2 H MCH 35.0 H MCHC 30.4 L RDW 18.7 H RDW Differential 75.6 H Plt Count 67 L MPV 12.9 H Immature Gran % (Auto) 0.800 Neut % (Auto) 57.4 Lymph % (Auto) 21.4 [place] % (Auto) 16.8 H Eos % (Auto) 3.4 Baso % (Auto) 0.2 Absolute Neuts (auto) 2.9 Absolute Lymphs (auto) 1.07 Total Counted Not Reportable Differential Comment SCAN Immature Plt Fraction Polychromasia 1+ Hypochromasia 1+ Anisocytosis 1+ Microcytosis 1+ Retic Count Immature Retic Fraction Retic Hgb Equivalent von Willebrand Comment Sodium 138 Potassium 4.6 Chloride 104 Carbon Dioxide 26.0 BUN 49 H Creatinine 1.79 H Estim Creat Clear Calc 33.46 Est GFR (MDRD) Af Amer 47 L Est GFR (MDRD) Non-Af 39 L BUN/Creatinine Ratio 27.4 H Glucose 141 H Calcium 8.2 L Phosphorus 4.7 Iron TIBC Iron Saturation Albumin 2.7 L Vitamin B12 728 Blood Type Antibody Screen Crossmatch 11/02/18 11/02/18 11/02/18 05:25 05:25 09:28 WBC RBC Hgb Hct MCV MCH MCHC RDW RDW Differential Plt Count MPV Immature Gran % (Auto) Neut % (Auto) Lymph % (Auto) [place] % (Auto) Eos % (Auto) Baso % (Auto) Absolute Neuts (auto) Absolute Lymphs (auto) Total Counted Differential Comment Immature Plt Fraction 14.4 H Polychromasia Hypochromasia Anisocytosis Microcytosis Retic Count 3.30 H Immature Retic Fraction 16.70 H Retic Hgb Equivalent 30.0 von Willebrand Comment Pending Sodium Potassium Chloride Carbon Dioxide BUN Creatinine Estim Creat Clear Calc Est GFR (MDRD) Af Amer Est GFR (MDRD) Non-Af BUN/Creatinine Ratio Glucose Calcium Phosphorus Iron 50 L TIBC 317 Iron Saturation 15.8 Albumin Vitamin B12 Blood Type Antibody Screen Crossmatch 11/02/18 09:28 WBC RBC Hgb Hct MCV MCH MCHC RDW RDW Differential Plt Count MPV Immature Gran % (Auto) Neut % (Auto) Lymph % (Auto) [place] % (Auto) Eos % (Auto) Baso % (Auto) Absolute Neuts (auto) Absolute Lymphs (auto) Total Counted Differential Comment Immature Plt Fraction Polychromasia Hypochromasia Anisocytosis Microcytosis Retic Count Immature Retic Fraction Retic Hgb Equivalent von Willebrand Comment Sodium Potassium Chloride Carbon Dioxide BUN Creatinine Estim Creat Clear Calc Est GFR (MDRD) Af Amer Est GFR (MDRD) Non-Af BUN/Creatinine Ratio Glucose Calcium Phosphorus Iron TIBC Iron Saturation Albumin Vitamin B12 Blood Type A POSITIVE Antibody Screen NEGATIVE Crossmatch See Detail POC Glucose 03/11/19 03/11/19 03/10/19 11:43 06:49 21:27 POC Glucose 242 H 137 H 154 H 11/01/18 16:06 POC Glucose 124 H Medical Necessity - Tobacco Use Smoking Status: Former smoker Tobacco Use: Non-smoker Assessment/Plan All Active Problems Pleural effusion (Acute) Acute chest pain (Acute) Hypoxemia (Acute) Dyspnea (Acute) Hyperglycemia (Acute) 1. Acute hypoxic respiratory failure 2/2 acute on chronic CHF, aortic stenosis, BL community acquired pneumonia, BL pleural effusions - continue IV abx and lasix. Off O2, ambulate prior to DC. Prior echo from [facility] available for comparis on On oncology note. Continue daily weights, I&Os. Fluid restrict. Trop negative x 3. Recent blood transfusion may have contributed to exacerbation. -EF73%, Moderate aortic stenosis. AV 1.34cm2. Repeat for comparison. -Repeat echo with EF60%, mild to moderate with VINCENT 1.4cm^2. AV gradient 23 mmHg. 2. Ascites 2/2 cirrhosis - continue lasix, lactulose, aldactone, xifaxin. Ammonia 42. Mental status improved - less lethargic today. 3. CKD III - trend with lasix use. Nephrology consulted. 4. Chronic anemia thrombocytopenia - oncology following. Will give 1 unit PRBC + 200mg Venofer today. Lasix with transfusion. Monitor overnight given recent CHF exacerbation after transfusion. 5. T2DM with morbid obesity - continue home insulin + SSI. 6. HTN - stable DVT ppx: start subq heparin 5k bid. Monitor platelets. Received 1 dose lovenox 120 mg in ER. DC planning PTOT. This patient was seen by Ugo Almanzar PA-C under the supervision of Dr. Ibarra
[2018-11-02] MEDS: Furosemide 20 MG/2 ML VIAL IV ×2 (16:39→17:50)
[2018-11-02 16:45] LABS: Bedside Glucose 143 mg/dL (70-110)
[2018-11-02] MEDS: Atorvastatin Calcium 10 MG Tablet PO (22:32)
[2018-11-02 22:36] LABS: Bedside Glucose 146 mg/dL (70-110)
[2018-11-03] VITALS (17 sets, daily range): BP systolic 115–126; BP diastolic 52–55; PULSE 60–72; RESP 16–18; TEMP 36.1–36.8; O2SAT 92–96
[2018-11-03] MEDS: Ipratropium/Albuterol Sulfate 3 ML AMPUL.NEB INHALATION ×4 (06:39→19:19)
[2018-11-03] MEDS: Levothyroxine 25 MCG TABLET PO (06:49)
[2018-11-03 07:01] LABS: Bedside Glucose 143 mg/dL (70-110)
[2018-11-03 07:06] LABS: Absolute Neutrophil Count 3.5 X10^3/uL (2.0-7.7); Basophil# 0.01 X10^3/uL; Basophil% 0.2 % (0-1); Eosinophil# 0.32 X10^3/uL; Eosinophils% 5.7 % (0-5); Hematocrit 28.4 % (40-54); Hemoglobin 8.8 g/dl (13.0-16.5); Lymphocyte % 17.8 % (19-41); Mean Corpuscular Hgb 34.8 pg (27.0-32.0); Mean Corpuscular Volume 112.3 fL (80-94); Mean Platelet Vol. 13.2 fl (6.2-12.0); Monocyte# 0.73 X10^3/uL; Neutrophil # 3.51 X10^3/uL (2.7-7.7); Neutrophil % 62.4 % (47-70); Platelet Count 76 K/mm3 (150-450); RBC Distribution Width CV 20.2 % (11.6-14.6); RBC Distribution Width SD 79.1 fl (35.1-43.9); Red Blood Count 2.53 M/mm3 (4.6-6.2); White Blood Count 5.6 K/mm3 (4.4-11.0)
[2018-11-03 07:07] LABS: Differential Indicated SCAN CRITERIA MET; POSITIVE COUNT NO; POSITIVE DIFFERENTIAL NO; POSITIVE MORPHOLOGY YES
[2018-11-03 07:12] LABS: Anion Gap 10 (5-15); BUN 44 mg/dL (7-18); BUN/Creat Ratio 23.9 RATIO (10-20); Calcium,Total 8.4 mg/dL (8.5-10.1); Chloride 102 mmol/L (98-107); Creatinine, Serum 1.84 mg/dL (0.70-1.30); EST Glomerular Filtration Rate 38 mL/min (>60); Est Glom Filt Rate - Afr Amer 46 mL/min (>60); Estimated Creatinine Clearance 32.55 ml/min; Glucose 131 mg/dL (74-106); Potassium 4.4 mmol/L (3.5-5.1); Sodium Level 141 mmol/L (136-145)
[2018-11-03 07:47] LABS: Anisocytosis 2+; Hypochromasia 1+; Platelet Estimate SLT DEC (ADEQ); Platelet Morphology LARGE
[2018-11-03] MEDS: Insulin Lispro 100 UNIT/ML INSULN.PEN SC ×3 (08:11→17:07)
[2018-11-03] MEDS: Lactulose 20 GM/30 ML UDC PO (08:14)
[2018-11-03] MEDS: Menthol/Lanolin/Calamine/Znox 113 GM Tube 1 APPLIC TOPICAL ×2 (08:14→21:54)
[2018-11-03] MEDS: Ferrous Sulfate 325 MG Tablet PO (08:14)
[2018-11-03] MEDS: Propranolol 40 MG Tablet PO (08:14)
[2018-11-03] MEDS: rifAXIMin 550 MG Tablet PO ×2 (08:15→21:54)
[2018-11-03] MEDS: Pantoprazole Sodium 40 MG Tablet PO (08:15)
[2018-11-03] MEDS: Spironolactone 50 MG Tablet 100 MG PO (08:16)
[2018-11-03] MEDS: Furosemide 20 MG/2 ML VIAL IV (10:32)
[2018-11-03] MEDS: Ceftriaxone 1 GM/50 ML BAG IV (10:32)
[2018-11-03 10:56] LABS: Bedside Glucose 194 mg/dL (70-110)
--- NOTE | 2018-11-03 12:10 | PN.RENAL_ITS ---
Patient Problems: Active and Suspected Problems Acute chest pain (Acute) Hypoxemia (Acute) Dyspnea (Acute) Subjective: renal function stable, hgb 8.8g with prbc yesterday. Edema and SOB stable. Appetite good. Reviewed echo results with pt and pt dtr at bedside. - Physical Exam General: Alert, Oriented x3, - - poor historian, dtr at bedside HEENT: PERRLA, EOMI Neck: Supple Lungs: Clear to auscultation, Diminished Cardiovascular: Regular rate, Murmur Abdomen: Bowel Sounds Present, Soft, Non Tender, Distended, Obese Extremities: Edema - improving Musculoskeletal: No Muscle Wasting, - - gen weakness Neurological: - - no tremor Psych/Mental Status: Flat Affect, Alert and oriented to time, place, person, mood and affect Vital Signs Temp Pulse Resp BP Pulse Ox 97 F L 71 18 126/54 H 94 11/03/18 10:25 11/03/18 10:56 11/03/18 10:56 11/03/18 10:25 11/03/18 10:25 Oxygen Flow Rate (L/min) 1 Oxygen Delivery Method Room Air Weight: 120.9 kg Body Mass Index (BMI) 40.8 Finger Stick Blood Glucose 132 Intake and Output for Last 24 Hours 11/01/18 11/02/18 11/03/18 23:59 23:59 23:59 Intake Total 1406 / 1406 Output Total 600 / 600 Balance 806 / 806 Microbiology Past 72 Hours 10/31/18 16:35 Respiratory Panel (PCR) - Final Mucosa - Nose Laboratory Tests Past 24 Hrs 11/02/18 11/02/18 11/03/18 09:28 14:35 05:50 WBC 5.6 RBC 2.53 L Hgb 8.8 L Hct 28.4 L MCV 112.3 H MCH 34.8 H MCHC 31.0 L RDW 20.2 H RDW Differential 79.1 H Plt Count 76 L MPV 13.2 H Immature Gran % (Auto) 0.900 Neut % (Auto) 62.4 Lymph % (Auto) 17.8 L [place] % (Auto) 13.0 H Eos % (Auto) 5.7 H Baso % (Auto) 0.2 Absolute Neuts (auto) 3.5 Absolute Lymphs (auto) 1.00 Total Counted Not Reportable Platelet Estimate SLT DEC Plt Morphology Comment LARGE Hypochromasia 1+ Anisocytosis 2+ Sodium Potassium Chloride Carbon Dioxide Anion Gap BUN Creatinine Estim Creat Clear Calc Est GFR (MDRD) Af Amer Est GFR (MDRD) Non-Af BUN/Creatinine Ratio Glucose Calcium Ammonia 31.0 Blood Type A POSITIVE Antibody Screen NEGATIVE Crossmatch See Detail 11/03/18 05:50 WBC RBC Hgb Hct MCV MCH MCHC RDW RDW Differential Plt Count MPV Immature Gran % (Auto) Neut % (Auto) Lymph % (Auto) [place] % (Auto) Eos % (Auto) Baso % (Auto) Absolute Neuts (auto) Absolute Lymphs (auto) Total Counted Platelet Estimate Plt Morphology Comment Hypochromasia Anisocytosis Sodium 141 Potassium 4.4 Chloride 102 Carbon Dioxide 29.0 Anion Gap 10 BUN 44 H Creatinine 1.84 H Estim Creat Clear Calc 32.55 Est GFR (MDRD) Af Amer 46 L Est GFR (MDRD) Non-Af 38 L BUN/Creatinine Ratio 23.9 H Glucose 131 H Calcium 8.4 L Ammonia Blood Type Antibody Screen Crossmatch POC Glucose 11/03/18 11/03/18 11/02/18 10:31 06:48 22:30 POC Glucose 194 H 143 H 146 H 11/02/18 16:35 POC Glucose 143 H Medical Necessity - Tobacco Use Smoking Status: Former smoker Tobacco Use: Non-smoker Assessment/Plan All Active Problems Pleural effusion (Acute) Acute chest pain (Acute) Hypoxemia (Acute) Dyspnea (Acute) Hyperglycemia (Acute) 1. CKD stage III due to diabetes and hypertensive nephropathy. Urine protein trace. Renal function at baseline creatinine of 1.7-2.0. Prerenal event from anemia, diuretics. 2. CHF with bilateral pleural effusion. Preserved LV function, diastolic heart failure with moderate aortic stenosis likely contributing to chronic fluid overload on diuretic therapy at home. Repeat echo with unchanged. Edema and shortness of breath has improved with IV Lasix. Consider switching to oral Lasix 40 mg twice a day. 3. History of hyperkalemia on Aldactone. Potassium level stable currently on Aldactone 100 mg a day. Continue to monitor 4. Chronic anemia requiring ZAHIDA therapy and blood transfusions managed by hematology. Last blood transfusion on October 28 as outpatient. Received prbc yesterday. 5. DM type II primary service management 6. Hypertension with stable blood pressures 7. Liver cirrhosis with thrombocytopenia, splenomegaly
[2018-11-03] MEDS: Insulin Lispro 100 UNIT/ML INSULN.PEN SQ (12:15)
[2018-11-03 12:25] LABS: Bedside Glucose 204 mg/dL (70-110)
--- NOTE | 2018-11-03 13:20 | PN_ITS ---
Patient Problems: Active and Suspected Problems Acute chest pain (Acute) Hypoxemia (Acute) Dyspnea (Acute) Subjective: Very weak. Edema improved. Breathing better but still productive cough ongoing. Will assess breathing with activity. BMx3 and loose yesterday. Eating well with no n/v. Mental status intact. Daughter is primarily concerned about his weakness at this point. No CP. No palp. - Physical Exam General: Alert, Oriented x3, Cooperative HEENT: Atraumatic, PERRLA, EOMI, Normocephalic Neck: Supple, No JVD, Negative Carotid Bruits Lungs: Diminished Cardiovascular: Regular rate, Murmur Abdomen: Bowel Sounds Present, Soft, Non Tender, Obese Extremities: Capillary Refill Less than 3 Seconds, Edema - improving. Skin: No rashes, No breakdown Musculoskeletal: No Tenderness to Palpation of Joints or Extremities Neurological: Cranial nerves II-XII grossly intact Psych/Mental Status: Normal Affect, Appropriate, Alert and oriented to time, place, person, mood and affect Vital Signs Temp Pulse Resp BP Pulse Ox 97 F L 71 18 126/54 H 94 11/03/18 10:25 11/03/18 10:56 11/03/18 10:56 11/03/18 10:25 11/03/18 10:25 Oxygen Flow Rate (L/min) 1 Oxygen Delivery Method Room Air Weight: 266 lb 8.622 oz Body Mass Index (BMI) 40.8 Finger Stick Blood Glucose 132 Intake and Output for Last 24 Hours 11/01/18 11/02/18 11/03/18 23:59 23:59 23:59 Intake Total 1406 / 1406 240 / 240 Output Total 600 / 600 Balance 806 / 806 240 / 240 Microbiology Past 72 Hours 10/31/18 16:35 Respiratory Panel (PCR) - Final Mucosa - Nose Laboratory Tests Past 24 Hrs 11/02/18 11/02/18 11/03/18 09:28 14:35 05:50 WBC 5.6 RBC 2.53 L Hgb 8.8 L Hct 28.4 L MCV 112.3 H MCH 34.8 H MCHC 31.0 L RDW 20.2 H RDW Differential 79.1 H Plt Count 76 L MPV 13.2 H Immature Gran % (Auto) 0.900 Neut % (Auto) 62.4 Lymph % (Auto) 17.8 L [place] % (Auto) 13.0 H Eos % (Auto) 5.7 H Baso % (Auto) 0.2 Absolute Neuts (auto) 3.5 Absolute Lymphs (auto) 1.00 Total Counted Not Reportable Platelet Estimate SLT DEC Plt Morphology Comment LARGE Hypochromasia 1+ Anisocytosis 2+ Sodium Potassium Chloride Carbon Dioxide Anion Gap BUN Creatinine Estim Creat Clear Calc Est GFR (MDRD) Af Amer Est GFR (MDRD) Non-Af BUN/Creatinine Ratio Glucose Calcium Ammonia 31.0 Blood Type A POSITIVE Antibody Screen NEGATIVE Crossmatch See Detail 11/03/18 05:50 WBC RBC Hgb Hct MCV MCH MCHC RDW RDW Differential Plt Count MPV Immature Gran % (Auto) Neut % (Auto) Lymph % (Auto) [place] % (Auto) Eos % (Auto) Baso % (Auto) Absolute Neuts (auto) Absolute Lymphs (auto) Total Counted Platelet Estimate Plt Morphology Comment Hypochromasia Anisocytosis Sodium 141 Potassium 4.4 Chloride 102 Carbon Dioxide 29.0 Anion Gap 10 BUN 44 H Creatinine 1.84 H Estim Creat Clear Calc 32.55 Est GFR (MDRD) Af Amer 46 L Est GFR (MDRD) Non-Af 38 L BUN/Creatinine Ratio 23.9 H Glucose 131 H Calcium 8.4 L Ammonia Blood Type Antibody Screen Crossmatch POC Glucose 11/03/18 11/03/18 11/03/18 12:13 10:31 06:48 POC Glucose 204 H 194 H 143 H 11/02/18 11/02/18 22:30 16:35 POC Glucose 146 H 143 H Medical Necessity - Tobacco Use Smoking Status: Former smoker Tobacco Use: Non-smoker Assessment/Plan All Active Problems Pleural effusion (Acute) Acute chest pain (Acute) Hypoxemia (Acute) Dyspnea (Acute) Hyperglycemia (Acute) 1. Acute hypoxic respiratory failure 2/2 acute on chronic CHF, aortic stenosis, BL community acquired pneumonia, BL pleural effusions - continue IV abx and lasix. Off O2, ambulate prior to DC. Prior echo from [facility] available for comparison On oncology note. Continue daily weights, I&Os. Fluid restrict. Trop negative x 3. Recent blood transfusion may have contributed to exacerbation. -EF73%, Moderate aortic stenosis. AV 1.34cm2. Repeat for comparison. -Repeat echo with EF60%, mild to moderate with VINCENT 1.4cm^2. AV gradient 23 mmHg. -Lasix to PO 2. Ascites 2/2 cirrhosis - continue lasix (switch to po), lactulose, aldactone, xifaxin. Ammonia 42. Mental status improved. BM loose and x3 yesterday, goal 3 loose stools daily. Ammonia decreased. 3. CKD III - stable. Nephrology consulted. 4. Chronic anemia thrombocytopenia - oncology following. S/p venofer and 1 unit prbc. improved 5. T2DM with morbid obesity - continue home insulin + SSI. 6. HTN - stable 7. Debility - ptot evals. DVT ppx: subq heparin 5k bid. Monitor platelets. Received 1 dose lovenox 120 mg in ER. DC planning PTOT. This patient was seen by Ugo Almanzar PA-C under the supervision of Dr. Ibarra
[2018-11-03 17:10] LABS: Bedside Glucose 130 mg/dL (70-110)
[2018-11-03] MEDS: Furosemide 40 MG Tablet PO (17:12)
[2018-11-03] MEDS: Atorvastatin Calcium 10 MG Tablet PO (21:54)
[2018-11-03 22:35] LABS: Bedside Glucose 126 mg/dL (70-110)
[2018-11-04] VITALS (9 sets, daily range): BP systolic 112–135; BP diastolic 47–55; PULSE 72–81; RESP 16–18; TEMP 36.6–36.8; O2SAT 92–97
[2018-11-04] MEDS: Levothyroxine 25 MCG TABLET PO (05:23)
[2018-11-04 06:51] LABS: Bedside Glucose 151 mg/dL (70-110)
[2018-11-04] MEDS: Ipratropium/Albuterol Sulfate 3 ML AMPUL.NEB INHALATION ×3 (07:07→15:03)
[2018-11-04] MEDS: Insulin Lispro 100 UNIT/ML INSULN.PEN SQ ×2 (08:27→12:18)
[2018-11-04] MEDS: Insulin Lispro 100 UNIT/ML INSULN.PEN SC ×2 (08:28→12:18)
[2018-11-04] MEDS: Ferrous Sulfate 325 MG Tablet PO (08:29)
[2018-11-04 09:26] LABS: Hematocrit 30.7 % (40-54); Hemoglobin 9.4 g/dl (13.0-16.5); Mean Corp Hgb Conc 30.6 g/gl (32-36); Mean Corpuscular Hgb 34.2 pg (27.0-32.0); Mean Corpuscular Volume 111.6 fL (80-94); Mean Platelet Vol. 12.6 fl (6.2-12.0); Platelet Count 88 K/mm3 (150-450); RBC Distribution Width CV 19.2 % (11.6-14.6); RBC Distribution Width SD 74.6 fl (35.1-43.9); Red Blood Count 2.75 M/mm3 (4.6-6.2); White Blood Count 7.9 K/mm3 (4.4-11.0)
[2018-11-04 09:27] LABS: Scan Indicated on CBC? Y/N YES- FLAGS NOTED
[2018-11-04 09:31] LABS: BUN 44 mg/dL (7-18); BUN/Creat Ratio 23.8 RATIO (10-20); Calcium,Total 8.4 mg/dL (8.5-10.1); Chloride 101 mmol/L (98-107); Creatinine, Serum 1.85 mg/dL (0.70-1.30); EST Glomerular Filtration Rate 38 mL/min (>60); Est Glom Filt Rate - Afr Amer 46 mL/min (>60); Estimated Creatinine Clearance 32.38 ml/min; Glucose 176 mg/dL (74-106); Phosphorus 4.2 mg/dL (2.5-4.9); Potassium 4.4 mmol/L (3.5-5.1); Sodium Level 136 mmol/L (136-145)
[2018-11-04] MEDS: Spironolactone 50 MG Tablet 100 MG PO (09:39)
[2018-11-04] MEDS: Ceftriaxone 1 GM/50 ML BAG IV (09:40)
[2018-11-04] MEDS: Propranolol 40 MG Tablet PO (09:40)
[2018-11-04] MEDS: Menthol/Lanolin/Calamine/Znox 113 GM Tube 1 APPLIC TOPICAL (09:40)
[2018-11-04] MEDS: Furosemide 40 MG Tablet PO (09:41)
[2018-11-04] MEDS: rifAXIMin 550 MG Tablet PO (09:41)
[2018-11-04] MEDS: Pantoprazole Sodium 40 MG Tablet PO (09:41)
--- NOTE | 2018-11-04 10:29 | CASEMGMT ---
Therapy is recommending C PT/OT for pt at this time. This RN CM to room to speak with pt/daughter regarding same, updated on recommendation and pt declines HHC at this time. Daughter states that she and family live with him and help care for him. Daughter states that she has exercises that she can do for him but pt refuses. Daughter states that she is pt's aide thru [facility]. Daughter does ask about inhaler or nebulizer at discharge. Per Melanie FRENCH, he will write for an albuterol nebulizer at discharge. Pt/daughter are aware that if they would like HHC set up after discharge then they can call PCP, voice understanding. Daughter states that pt is scheduled to see PCP on 11/10/18 already and if order needed prior to that, she will call office. Pt/daughter voice no further questions/concerns/needs at this time. SStaten CHALO ALLRED
--- NOTE | 2018-11-04 10:36 | DCINST_ITS ---
- Discharge Diagnoses Current Active Problems: Current Active and Chronic Problems Acute chest pain (Acute) Hypoxemia (Acute) Dyspnea (Acute) Chronic anemia (Chronic) Liver cirrhosis (Chronic) CKD (chronic kidney disease) (Chronic) You will use the following diet at home:: Renal (restricted protein/sodium) Your food should be the consistency of: Regular Your liquids should be the consistency of: Regular/Thin Discharge Activity: Return to Normal Activity Allergies/Adverse Reactions: Allergies No Known Allergies Allergy (Verified 10/31/18 10:19) Medications to take at Discharge Levothyroxine [Synthroid] 25 mcg PO DAILY 11/23/16 Methylcellulose [Fiber Therapy] 500 mg PO DAILY 11/23/16 Miconazole Nitrate [Lotrimin AF] 90 gm TP BID PRN PRN 11/23/16 Pantoprazole Sodium [Protonix] 40 mg PO DAILY 11/23/16 Psyllium Husk [Psyllium] 0.4 gm PO QHS 11/23/16 Rifaximin [Xifaxan] 550 mg PO BID 11/23/16 Simvastatin [Zocor] 20 mg PO DAILY 11/23/16 Ferrous Sulfate 325 mg PO DAILY 10/05/17 Loratadine [Claritin] 10 mg PO DAILY PRN PRN 10/05/17 Meclizine HCl [Antivert] 25 mg PO TID PRN PRN 10/05/17 Lactulose 30 ml PO DAILY 02/20/18 Darbepoetin Brandyn in Polysorbat [Aranesp] 25 mcg SC PRN PRN 04/04/18 Desoximetasone 0.25% [Topicort Crm 0.25%] 1 applic TOPICAL BID 04/04/18 Spironolactone [Aldactone] 100 mg PO DAILY 04/18/18 Propranolol HCl [Inderal (Beta Reggie)] 40 mg PO DAILY 10/31/18 Albuterol IH (ProAir) [Proair Hfa] 1 puff INHALATION Q6H PRN PRN #1 inhaler 11/04/18 Cefdinir [Omnicef [equiv]] 300 mg PO Q12H #6 capsule 11/04/18 Furosemide [Lasix] 40 mg PO BID@1000,1800 tablet 11/04/18 Insulin Glargine [Lantus SoloStar Pen] 5 units SC BID pen 03/13/19 Insulin Lispro [Humalog KwikPen] 5 unit SC TIDAC insuln.pen 11/04/18 The following prescriptions were given: Albuterol IH (ProAir) [Proair Hfa] 1 puff INHALATION Q6H PRN PRN #1 inhaler PRN Reason: Sob &/Or Wheezing Cefdinir [Omnicef [equiv]] 300 mg PO Q12H #6 capsule Orders to be completed after discharge: CBC W/Diff, Automated Time Frame: 5 Days, Location: Laboratory Comprehensive Metabolic Profil Time Frame: 5 Days, Location: Laboratory Primary Care Physician: Kayla Bernstein NP-C [Primary Care Provider] - Please follow up with your Primary Care Physician in: 1-2 weeks Test Results: Test results from this visit will be discussed in further detail at your follow- up appointment, if applicable. Please Follow Up With: Jocelyn Ball, - Call for appointment When: As directed Please Follow Up With: Shanna Oliveira MD - Hematology/Oncology When: Keep prior appointment Proposed Discharge Date: 11/04/18
[2018-11-04] MEDS: 0.9% NaCl Peripheral Flush Adult/Peds IV (10:58)
--- NOTE | 2018-11-04 11:31 | PHA.DC.COU ---
Pharmacy Services has performed discharge medication counseling for this patient. The patient was counseled on the following discharge medications and changes in medications for homegoing review. 1. CEFDINIR 300 MG PO BID X6 DOSES 2. PROAIR: 1 PUFF Q6H PRN SOB/WHEEZING The Reason for Use, instructions for use, and potential side effects were reviewed for all new medications. The patient's questions regarding all of their medications were answered. The patient demonstrated some understanding but would benefit from further education and reinforcement.
[2018-11-04 12:11] LABS: Bedside Glucose 305 mg/dL (70-110)
--- NOTE | 2018-11-04 12:34 | PCM.PN.REN ---
Patient Problems: Active and Suspected Problems Acute chest pain (Acute) Hypoxemia (Acute) Dyspnea (Acute) Subjective: breathing stable. Hgb, renal fxn at baseline. Edema improved. - Physical Exam General: Alert, - - poor historian Lungs: Clear to auscultation, Diminished Cardiovascular: Regular rate Abdomen: Bowel Sounds Present, Soft, Non Tender, Non-Distended, Obese Extremities: No edema Vital Signs Temp Pulse Resp BP Pulse Ox 98.1 F 75 16 135/47 H 95 11/04/18 09:30 11/04/18 11:05 11/04/18 11:05 11/04/18 09:30 11/04/18 09:30 Oxygen Flow Rate (L/min) 6 Oxygen Delivery Method Room Air Weight: 119 kg Body Mass Index (BMI) 40.8 Finger Stick Blood Glucose 132 Intake and Output for Last 24 Hours 11/02/18 11/03/18 11/04/18 23:59 23:59 23:59 Intake Total 1406 / 1406 540 / 540 639 / 639 Output Total 600 / 600 100 / 100 Balance 806 / 806 540 / 540 539 / 539 Microbiology Past 72 Hours 10/31/18 16:35 Respiratory Panel (PCR) - Final Mucosa - Nose Laboratory Tests Past 24 Hrs 11/02/18 11/04/18 11/04/18 09:28 09:00 09:00 WBC 7.9 RBC 2.75 L Hgb 9.4 L Hct 30.7 L MCV 111.6 H MCH 34.2 H MCHC 30.6 L RDW 19.2 H RDW Differential 74.6 H Plt Count 88 L MPV 12.6 H Differential Comment COMMENT von Willebrand Comment 306 H Sodium 136 Potassium 4.4 Chloride 101 Carbon Dioxide 26.0 BUN 44 H Creatinine 1.85 H Estim Creat Clear Calc 32.38 Est GFR (MDRD) Af Amer 46 L Est GFR (MDRD) Non-Af 38 L BUN/Creatinine Ratio 23.8 H Glucose 176 H Calcium 8.4 L Phosphorus 4.2 Albumin 3.0 L POC Glucose 11/04/18 11/04/18 11/03/18 11:57 06:42 22:24 POC Glucose 305 H 151 H 126 H 11/03/18 17:05 POC Glucose 130 H Medical Necessity - Tobacco Use Smoking Status: Former smoker Tobacco Use: Non-smoker Assessment/Plan All Active Problems Pleural effusion (Acute) Acute chest pain (Acute) Hypoxemia (Acute) Dyspnea (Acute) Hyperglycemia (Acute) 1. CKD stage III due to diabetes and hypertensive nephropathy. Urine protein trace. Renal function at baseline creatinine of 1.7-2.0. Ok to dc to home from renal standpoint 2. CHF with bilateral pleural effusion improved with iv lasix. DC to home on lasix 40mg twice a day, aldactone 100mg daily 3. Anemia s/p prbc. F/U with hematology for ZAHIDA 4. DM type II primary service management 5. Hypertension with stable blood pressures 6. Liver cirrhosis with thrombocytopenia, splenomegaly
--- NOTE | 2018-11-04 12:40 | DS.PCM_ITS ---
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 Atelectasis or infiltrate in the lung bases. CT/Chest without Contrast IMPRESSION: Limited by motion. Congestion and pulmonary edema. Bilateral pleural effusions worse on the right. Prominent atelectasis and possible infiltrates in both lower lobes worse on the right. Echo: Interpretation Summary Mild focal aortic valve calcification. Mean aortic valve gradient 23 mmHg. Mild to moderate aortic stenosis. Normal LV size. Mild concentric left ventricular hypertrophy. Left ventricular systolic function is normal. The estimated ejection fraction is 60 %. Contrast injection was performed. RAD/Chest PA and Lateral IMPRESSION: CHF. There has been improvement as compared to prior study. Consults: Tee - onc Quinn - nephro Operations: None Procedures: 2-D Echocardiogram Summary of Care Provided: Hospital course: The patient is a 78 year old M with past medical history as above who presents the emergency room with complaints of chest pain and shortness of breath. He had sinus congestion worsening for 2 days. He had recently been transfused with packed red blood cells for his chronic anemia, later becoming more short of breath and developing left midsternal chest discomfort. He appeared to be volume overloaded with increased lower extremity edema, abdominal distention, chest x- ray consistent with congestive heart failure. CT of the chest was obtained and showed pleural effusions and infiltrates. He was admitted to the PCU and placed on telemetry. He was treated for acute on chronic diastolic congestive heart failure, pleural effusions, community-acquired pneumonia, and ascites with IV Lasix, aerosols, azithromycin, and Rocephin. He responded well to diuresis. Oncology was consulted regarding his chronic anemia. Nephrology was consulted regarding his CKD. His renal function remained stable with diuresis. He was transfused with 1 unit of packed red blood cells and iron. His blood counts improved and remained stable following this. On his home dose of lactulose he continued to have 3 loose bowel movements daily. During his stay we repeated an echocardiogram as he does have underlying aortic stenosis and were concerned that it may be worsening given his acute heart failure presentation. His aortic valve area was 1.4, mild to moderate aortic stenosis, and preserved ejection fraction. Is felt that he could follow up regarding this as an outpatient. He remains significantly debilitated and difficulty walking so physical therapy and occupational therapy evaluated the patient. They felt that he qualified for home health care, however the patient refused. He was discharged home in stable condition. He will need to follow-up with his PCP in 1-2 weeks, he has an appointment next week with Dr. Calixto that he needs to keep, and he should follow- up with nephrology as directed. Advised him to have a CBC and BMP in 5 days to reevaluate his CKD and his chronic anemia. His home Lasix dose was adjusted, and he was given Omnicef to complete a total of 7 days of antibiotic therapy. Please also note that his home insulin therapy was decreased while here, at the lower dose his blood sugars remained controlled, and he will continue this as an outpatient. He can have it reassessed on follow-up with his primary care provider. This patient was seen by Ugo Almanzar PA-C under the supervision of Doctor Stacey. [] Patient Problems: Active and Suspected Problems Acute chest pain (Acute) Hypoxemia (Acute) Dyspnea (Acute) - Physical Exam General: Alert, Oriented x3, Cooperative HEENT: Atraumatic, PERRLA, EOMI, Normocephalic Neck: Supple, No JVD, Negative Carotid Bruits Lungs: Diminished, Rales Cardiovascular: Regular rate, No murmurs Abdomen: Bowel Sounds Present, Soft, Non Tender, Obese Extremities: Capillary Refill Less than 3 Seconds, Edema Skin: No rashes, No breakdown Musculoskeletal: No Tenderness to Palpation of Joints or Extremities Neurological: Cranial nerves II-XII grossly intact Psych/Mental Status: Normal Affect, Appropriate, Alert and oriented to time, place, person, mood and affect Vital Signs Temp Pulse Resp BP Pulse Ox 98.1 F 75 16 135/47 H 95 11/04/18 09:30 11/04/18 11:05 11/04/18 11:05 11/04/18 09:30 11/04/18 09:30 Oxygen Flow Rate (L/min) 6 Oxygen Delivery Method Room Air Weight: 262 lb 5.601 oz Body Mass Index (BMI) 40.8 Finger Stick Blood Glucose 132 Intake and Output for Last 24 Hours 11/02/18 11/03/18 11/04/18 23:59 23:59 23:59 Intake Total 1406 / 1406 540 / 540 639 / 639 Output Total 600 / 600 100 / 100 Balance 806 / 806 540 / 540 539 / 539 Microbiology Past 72 Hours 10/31/18 16:35 Respiratory Panel (PCR) - Final Mucosa - Nose Laboratory Tests Past 24 Hrs 11/02/18 11/04/18 11/04/18 09:28 09:00 09:00 WBC 7.9 RBC 2.75 L Hgb 9.4 L Hct 30.7 L MCV 111.6 H MCH 34.2 H MCHC 30.6 L RDW 19.2 H RDW Differential 74.6 H Plt Count 88 L MPV 12.6 H Differential Comment COMMENT von Willebrand Comment 306 H Sodium 136 Potassium 4.4 Chloride 101 Carbon Dioxide 26.0 BUN 44 H Creatinine 1.85 H Estim Creat Clear Calc 32.38 Est GFR (MDRD) Af Amer 46 L Est GFR (MDRD) Non-Af 38 L BUN/Creatinine Ratio 23.8 H Glucose 176 H Calcium 8.4 L Phosphorus 4.2 Albumin 3.0 L POC Glucose 11/04/18 11/04/18 11/03/18 11:57 06:42 22:24 POC Glucose 305 H 151 H 126 H 11/03/18 17:05 POC Glucose 130 H Discharge Diet: Low fat/ Low Cholesterol, 1800 Calorie Control Diet, 2000 mg Sodium Diet Discharge Activity: Return to Normal Activity Home Medications: Medications to take at Discharge Levothyroxine [Synthroid] 25 mcg PO DAILY 11/23/16 Methylcellulose [Fiber Therapy] 500 mg PO DAILY 11/23/16 Miconazole Nitrate [Lotrimin AF] 90 gm TP BID PRN PRN 11/23/16 Pantoprazole Sodium [Protonix] 40 mg PO DAILY 11/23/16 Psyllium Husk [Psyllium] 0.4 gm PO QHS 11/23/16 Rifaximin [Xifaxan] 550 mg PO BID 11/23/16 Simvastatin [Zocor] 20 mg PO DAILY 11/23/16 Ferrous Sulfate 325 mg PO DAILY 10/05/17 Loratadine [Claritin] 10 mg PO DAILY PRN PRN 10/05/17 Meclizine HCl [Antivert] 25 mg PO TID PRN PRN 10/05/17 Lactulose 30 ml PO DAILY 02/20/18 Darbepoetin Brandyn in Polysorbat [Aranesp] 25 mcg SC PRN PRN 04/04/18 Desoximetasone 0.25% [Topicort Crm 0.25%] 1 applic TOPICAL BID 04/04/18 Spironolactone [Aldactone] 100 mg PO DAILY 04/18/18 Propranolol HCl [Inderal (Beta Reggie)] 40 mg PO DAILY 10/31/18 Albuterol IH (ProAir) [Proair Hfa] 1 puff INHALATION Q6H PRN PRN #1 inhaler 11/04/18 Cefdinir [Omnicef [equiv]] 300 mg PO Q12H #6 capsule 11/04/18 Furosemide [Lasix] 40 mg PO BID@1000,1800 tablet 11/04/18 Insulin Glargine [Lantus SoloStar Pen] 5 units SC BID pen 11/04/18 Insulin Lispro [Humalog KwikPen] 5 unit SC TIDAC insuln.pen 11/04/18 Following Prescrptions Were Given to Patient: Albuterol IH (ProAir) [Proair Hfa] 1 puff INHALATION Q6H PRN PRN #1 inhaler PRN Reason: Sob &/Or Wheezing Cefdinir [Omnicef [equiv]] 300 mg PO Q12H #6 capsule Other Amb Orders: CBC W/Diff, Automated Time Frame: 5 Days, Location: Laboratory Comprehensive Metabolic Profil Time Frame: 5 Days, Location: Laboratory Primary Care Physician: Kayla Bernstein NP-C [Primary Care Provider] - Please follow up with your Primary Care Physician in: 1-2 weeks Please Follow Up With: Jocelyn Ball DO When: As directed Please Follow Up With: Shanna Oliveira MD When: Keep prior appointment Please Follow Up With: Kayla Bernstein NP-C Medical Necessity - Tobacco Use Smoking Status: Former smoker Tobacco Use: Non-smoker Meaningful Use Info Meaningful Use Diagnoses (Choose all that apply): CHF - CHF CHRISTIANO/ARB ordered at discharge?: No Reason CHRISTIANO/ARB not ordered?: Worsening renal disease Documented LVEF (%): 60
--- NOTE | 2018-11-05 14:19 | CASEMGMT ---
CHALO ALLRED Discharge Follow-Up Phone Call. Lace: 12 Strata: 3 Discharge Date: 11/04/18 Adm Dx: Acute Hypoxic Resp Failure Attempted discharge follow-up phone call. No answer. Left message for pt/daughter to return call if they have any questions re: discharge instructions, medications, or follow-up appts. Provided with COTTRELL BLOWER CM, Ellie Liu's phone number. Kellee ANDREA RN CM
== END 2018-11-04 15:23 | disposition home or self-care (01) | DRG 291 ==
LOC: ED 11:14 → PCU 11:38
PROVIDERS: Internal Medicine Hematology & Oncology; Internal Medicine Nephrology; Physician Assistant; Admitting Provider Internal Medicine; Emergency Provider Emergency Medicine; Family Provider Nurse Practitioner Family; PCP Nurse Practitioner Family; Visit Provider Internal Medicine
DX: I13.0 Hypertensive heart and chronic kidney disease with heart failure and stage 1 through stage 4 chronic kidney disease, or unspecified chronic kidney disease (principal); I50.33 Acute on chronic diastolic (congestive) heart failure; J96.01 Acute respiratory failure with hypoxia; J18.9 Pneumonia, unspecified organism; R18.8 Other ascites; J91.8 Pleural effusion in other conditions classified elsewhere; D64.9 Anemia, unspecified; K74.60 Unspecified cirrhosis of liver; E11.22 Type 2 diabetes mellitus with diabetic chronic kidney disease; N18.3 Chronic kidney disease, stage 3 (moderate); K75.81 Nonalcoholic steatohepatitis (NASH); I35.0 Nonrheumatic aortic (valve) stenosis; E78.5 Hyperlipidemia, unspecified; R53.81 Other malaise; D69.59 Other secondary thrombocytopenia; Z79.4 Long term (current) use of insulin; Z87.891 Personal history of nicotine dependence; E61.1 Iron deficiency
CPT/HCPCS: 36415; 71045; 71046; 71250; 80048; 80069; 82140; 82607; 82962; 83540; 83550; 84484; 85025; 85027; 85045; 85245; 85610; 85730; 86850; 86900; 86920; 86922; 87633; 93005; 93306; 94640; 97162; 97166; 97802; 99285; J1756; J7040; P9016; Q9957; A4216; C8929; J1940

== ENCOUNTER 2018-12-01 16:48 | Inpatient (IN) | payer MEDICARE, SELFPAY ==
[2018-10-31 11:47] VITALS: BMI 40.8
[2018-12-01] VITALS (13 sets, daily range): BP systolic 108–180; BP diastolic 51–78; PULSE 61–92; RESP 12–31; TEMP 36.9–37.3; O2SAT 92–100; BMI 42.3; BMI 41.4
--- NOTE | 2018-12-01 17:02 | EKG12_ITS ---
Test Reason : SOB Blood Pressure : / mmHG Vent. Rate : 095 BPM Atrial Rate : 105 BPM P-R Int : 000 ms QRS Dur : 094 ms QT Int : 336 ms P-R-T Axes : 000 063 015 degrees QTc Int : 422 ms Atrial fibrillation Abnormal ECG Confirmed by MAGY MONTESINOS MD ([id number]), newspaper copy editor ANGIE ORTEGA ([id number]) on 12/07/2018 4:18:28 PM Referred By: BYRON Confirmed By:MAGY MONTESINOS MD
--- NOTE | 2018-12-01 17:02 | RAD_ITS ---
STUDY: X-RAY CHEST REASON FOR EXAM: Male, 78 years old. Short of breath TECHNIQUE: AP portable COMPARISON: November 02, 2018 FINDINGS: Lungs are hyperinflated and there is mild prominence of the interstitial markings. There is asymmetric right perihilar infiltrate or pulmonary edema.. There is also mild atelectasis or infiltrate in left lower lobe. There is blunting of left costophrenic sulcus possibly representing tiny effusion. Heart is enlarged Normal mediastinum and jeannine. Normal visualized pulmonary arteries. Normal visualized aortic arch and descending thoracic aorta. Dorsal spine demonstrates spondylosis.. Normal visualized ribs, clavicles, and shoulders. There is no demonstrated abnormality of the visualized soft tissue structures of the upper abdomen. RAD/Chest 1 View (Portable) IMPRESSION: COPD and superimposed right perihilar infiltrate or pulmonary edema and mild left lower lobe atelectasis or infiltrate. Electronically Signed: Yung Bell MD at 17:31 EDT , Service support ,
[2018-12-01] MEDS: Ipratropium/Albuterol Sulfate 3 ML AMPUL.NEB INHALATION (17:15)
[2018-12-01] MEDS: Ondansetron 4 MG/2 ML Vial IV (17:33)
[2018-12-01] MEDS: Furosemide 40 MG/4 ML Vial IV (17:35)
--- NOTE | 2018-12-01 17:38 | CPS ---
Patient placed on Bipap at 1720, patient denied nausea. Called to room shortly after. Patient had vomited/coughed-up large amount of mucus into bipap mask. Mask immediately removed and patient placed on 2lpm Nasal Cannula. New mask in placed, anti-nausea medicine requested. Patient medicated for nausea by RN.
[2018-12-01 17:43] LABS: International Normalized Ratio 1.5; Prothrombin Time (Protime)PT. 17.5 SECONDS (11.7-14.9)
[2018-12-01 17:46] LABS: Anion Gap 3 (5-15); BUN 40 mg/dL (7-18); BUN/Creat Ratio 22.6 RATIO (10-20); Calcium,Total 8.5 mg/dL (8.5-10.1); Chloride 107 mmol/L (98-107); Creatinine, Serum 1.77 mg/dL (0.70-1.30); EST Glomerular Filtration Rate 40 mL/min (>60); Est Glom Filt Rate - Afr Amer 48 mL/min (>60); Estimated Creatinine Clearance 32.74 ml/min; Glucose 87 mg/dL (74-106); Potassium 4.5 mmol/L (3.5-5.1); Sodium Level 138 mmol/L (136-145)
[2018-12-01 17:48] LABS: Absolute Lymphocyte Count 1.31 X10^3/ul (0.83-4.51); Absolute Neutrophil Count 6.4 X10^3/uL (2.0-7.7); Basophil# 0.05 X10^3/uL; Basophil% 0.5 % (0-1); Eosinophil# 0.16 X10^3/uL; Eosinophils% 1.5 % (0-5); Hematocrit 28.1 % (40-54); Hemoglobin 8.7 g/dl (13.0-16.5); Lymphocyte # 1.31 X10^3/ul (4.0); Lymphocyte % 12.5 % (19-41); Mean Corpuscular Hgb 34.5 pg (27.0-32.0); Mean Corpuscular Volume 111.5 fL (80-94); Mean Platelet Vol. 12.6 fl (6.2-12.0); Monocyte# 2.34 X10^3/uL; Monocyte% 22.4 % (0-10); Neutrophil # 6.37 X10^3/uL (2.7-7.7); Neutrophil % 60.9 % (47-70); Platelet Count 118 K/mm3 (150-450); RBC Distribution Width CV 18.1 % (11.6-14.6); RBC Distribution Width SD 74.1 fl (35.1-43.9); Red Blood Count 2.52 M/mm3 (4.6-6.2); White Blood Count 10.5 K/mm3 (4.4-11.0)
[2018-12-01 17:54] LABS: Differential Indicated SCAN CRITERIA MET; POSITIVE COUNT YES; POSITIVE DIFFERENTIAL YES; POSITIVE MORPHOLOGY YES
[2018-12-01 18:08] LABS: Anisocytosis 1+; Macrocytosis 1+; Platelet Estimate SLT DEC (ADEQ)
[2018-12-01 18:16] LABS: Lactic Acid 0.8 mmol/L (0.4-2.0)
--- NOTE | 2018-12-01 18:23 | CPS ---
1743-sats at 100%, FiO2 decreased to 30%.
--- NOTE | 2018-12-01 18:30 | ED.DCSUM_ITS ---
- ER Visit Summary Date of Service: 12/01/18 Chief Complaint: Shortness of breath History of Present Illness: The patient is a [address] Bernstein and Dr. Oliveira. He reports that he has shortness of breath began today. It was severe at worst moderate currently. He denies a cough, fever, or chills. Does report that he has a little bit of chest pain. He has been nauseated and vomited once. Complains of a headache that is 3-10 severity and generalized weakness. Patient is in moderate respiratory distress and is a poor informant. He is speaking in 1-2 word sentences. Physical Examination: Vitals: 99.1, 180/78, 92, 25, 94% on 4 L nasal cannula. General: Well-nourished and well-developed. Head: Normocephalic atraumatic. Neck: Supple, no lymphadenopathy. No JVD. Nontender. Cardiovascular: Irregularly irregular rhythm with a 2 out of 6 systolic murmur. Respiratory: Moderate respiratory distress with crackles at the bases bilaterally and poor air movement. Abdominal: Soft, nontender, nondistended, normal bowel sounds. No guarding, rebound, or peritoneal signs. Back: Nontender. Extremities: Nontender, 2+ edema of his lower extremities bilaterally. Skin: Normal color, no rash. Neurologic: Alert and oriented ?3. Cranial nerves II through XII are intact. Normal strength and sensation. Psych: Normal affect. Test Results: EKG shows atrial fibrillation at a rate of 95. This is changed from October 31 at that time he was in sinus bradycardia. Chest x-ray shows COPD with a right perihilar infiltrate or pulmonary edema and mild left lower lobe atelectasis or infiltrate. CBC shows a hemoglobin of 8.7 and hematocrit of 28.1, platelets 118, immature granulocytes of 2.2%, and monocytes of 22%. Chem- 7 shows a BUN of 40 and creatinine 1.77. INR is 1.5. Lactic acid is 0.8. Ammonia level is 39. Troponin 0 0.071. Emergency Department Course and Treatment: Patient was placed on BiPAP. He was given albuterol Atrovent aerosols. On repeat exam he is breathing much more comfortably and is resting. He was given 40 mg of Lasix IV and Zosyn as well as vancomycin IV as he was admitted to the hospital last month. Treatment Plan: The patient was discussed with Dr. Rojas. He will be admitted to the hospital for further evaluation and treatment. Disposition: Admitted in improved, but serious condition. Impression: 1. Acute respiratory failure on BiPAP. 2. Pneumonia, healthcare acquired. 3. CHF. 4. Atrial fibrillation. 5. Anemia. 6. Critical care time 30 minutes. This note was generated with [employer] software. It may contain incorrect words, spelling, and punctuation that were not noted in review of the chart prior to signing ED Disposition - Plan for ED Patient: Referrals: Kayla Bernstein NP-C [Primary Care Provider] -
--- NOTE | 2018-12-01 20:08 | PCM.HP.STD ---
Problem List (1) Acute respiratory failure with hypoxia Status: Acute (2) CHF exacerbation Status: Acute Qualifiers: Heart failure type: diastolic Qualified Code(s): I50.33 - Acute on chronic diastolic (congestive) heart failure (3) Morbid obesity Status: Chronic (4) Chronic anemia Status: Chronic (5) Type 2 diabetes mellitus Status: Chronic Qualifiers: Diabetes mellitus fdc insulin use: with fdc use Diabetes mellitus complication status: with unspecified complications Qualified Code(s): E11.8 - Type 2 diabetes mellitus with unspecified complications; Z79.4 - penitentiary (current) use of insulin (6) Hyperlipidemia Status: Chronic Qualifiers: Hyperlipidemia type: unspecified Qualified Code(s): E78.5 - Hyperlipidemia, unspecified (7) Liver cirrhosis Status: Chronic Qualifiers: Hepatic cirrhosis type: unspecified hepatic cirrhosis Ascites presence: unspecified Qualified Code(s): K74.60 - Unspecified cirrhosis of liver (8) Chronic kidney disease, stage III (moderate) Status: Chronic (9) HTN (hypertension) Status: Chronic Qualifiers: Hypertension type: essential hypertension Qualified Code(s): I10 - Essential (primary) hypertension History of Present Illness Date of Admission: 12/01/18 Chief Complaint: Dyspnea The patient is a 78 y/o M w/ PMHx: AOCD (Baseline Hgb 8) and Chronic Thrombocytopenia (Baseline Plts 60-70) following w/ Dr. Oliveira, CKD stage III (Baseline Cr 1.7-1.8), Diabetes mellitus type II, Morbid Obesity, Chronic Liver Cirrhosis, HTN, HLD who presents to the [facility] ED on 12/01/18 with history of sudden onset dyspnea, worse with any exertional attempts with orthopnea, recent weight gain with admission ~ 1 month prior with decrease of lasix dose from BID to daily secondary to worsening renal function. He denies any recent cough, congestion, fever, chills, malaise. He notes that it came on more suddenly as far as severe dyspnea, prompting EMS call. At home his son checked his oxygenation at noted it was 65%. Work-up in the ED included T 99.1, heart rate 92, BP initially 180/78, respiratory rate initially 25, 94% on 4 L nasal cannula--> placed on BiPAP with vital sign improvement to heart rate 62, BP 129/63, respiratory rate 24, 96% on BiPAP, CBC with W BC 10.5, hemoglobin 8.7, platelet 118 without market left shift, INR 1.5, BMP with BUN/creatinine 40/1.77, lactic acid 0.8, ammonia 39, troponin 0 0.071, BNP pending, culture x2 pending per ED, chest x-ray with chronic COPD changes with a superimposed right perihilar infiltrate versus pulmonary edema and mid left lower lobe atelectasis versus infiltrate, EKG w/ ? atrial fibrillation although on telemetry appeared sinus rhythm. In the ED patient administered Zosyn, Zofran, 40 mg IV x1 Lasix, DuoNeb, vancomycin. Past Medical History Past Medical History (Chronic Problems): Chronic Problems Morbid obesity (Chronic) Aortic stenosis (Chronic) Chronic anemia (Chronic) Type 2 diabetes mellitus (Chronic) Hyperlipidemia (Chronic) Liver cirrhosis (Chronic) Chronic kidney disease, stage III (moderate) (Chronic) CKD (chronic kidney disease) (Chronic) HTN (hypertension) (Chronic) Allergies No Known Allergies Allergy (Verified 12/01/18 16:49) Home Medications: Ambulatory Orders Medication Instructions Recorded Levothyroxine [Synthroid] 25 mcg PO DAILY 11/23/16 Pantoprazole Sodium [Protonix] 40 mg PO DAILY 11/23/16 Rifaximin [Xifaxan] 550 mg PO BID 11/23/16 Simvastatin [Zocor] 20 mg PO DAILY 11/23/16 Ferrous Sulfate 325 mg PO DAILY 10/05/17 Desoximetasone 0.25% [Topicort Crm 1 applic TOPICAL DAILY 04/04/18 0.25%] Albuterol IH (ProAir) [Proair Hfa] 1 puff INHALATION Q6H PRN PRN #1 11/04/18 inhaler Furosemide [Lasix] 80 mg PO QODAY 12/01/18 Insulin Glargine [Lantus SoloStar 25 units SC BID 12/01/18 Pen] Insulin Lispro [Humalog KwikPen] 12 unit SQ BREAKFAST 12/01/18 Insulin Lispro [Humalog KwikPen] 15 units SQ DINNER 12/01/18 Insulin Lispro [Humalog KwikPen] 24 units SQ LUNCH 12/01/18 Lactulose [Constulose] 30 ml PO BID 12/01/18 Multivit-Min/FA/Lycopen/Lutein 1 each PO DAILY 12/01/18 [Centrum Silver Men Tablet] Nadolol [Corgard] 40 mg PO DAILY 12/01/18 Psyllium Husk [Metamucil] 0.4 gm PO QHS 12/01/18 Spironolactone 100 mg PO DAILY 12/01/18 Surgical History: - - prostate surgery, hernia surgery, circumcision Psychiatric History: No pertinent psych hx Lives: Spouse/ Significant Other Smoking Status: Former smoker Tobacco Use: Non-smoker Alcohol: None Drugs: None - *Family History Maternal History Items: Diabetes Paternal History Items: Cancer - Prostate Review of Systems Constitutional: Reports: Fatigue. Denies: Anorexia, Chills, Fever, Malaise, Weakness, Weight Change HEENT: Denies: Head Aches, Sinus Congestion, Sinus Drainage Cardiovascular: Reports: Edema, Orthopnea. Denies: Chest Pain, Chest Pressure, Chest Tightness, Heaviness, Light Headedness, Palpitations Respiratory: Reports: Shortness of Breath, Shortness of breath upon exertion. Denies: Cough, Shortness of breath at rest, Sputum production, Wheezing Gastrointestinal: Denies: Abdominal Pain, Nausea, Vomiting Genitourinary: Reports: Retention - Occasional issues with retention.. Denies: Dysuria Musculoskeletal: Reports: Joint Pain. Denies: Joint Tenderness Skin: Denies: Rash, Wounds Neurological: Denies: Numbness, Tingling, Focal weakness Psychiatric: Denies: Anxiety, Depression, Homicidal Ideations, Suicidal Ideations Hematologic/ Lymphatic: Reports: Anemia, Easy Bruising, Easy Bleeding VTE Information - Inpt Only VTE Present on Admission: No VTE Mechan Device Prophylaxis: SCD's VTE Pharm Prophylaxis ordered?: Yes Patient Problems: Active and Suspected Problems Acute respiratory failure with hypoxia (Acute) CHF exacerbation (Acute) Subjective: Seated upright in ED bed, fatigued appearance, BiPAP in place, notes feeling improved since initial presentation at which point he had been in acute respiratory distress with hypoxia, increased respiratory rate, conversational dyspnea, accessory muscle usage. Objective: Physical Examination: General: awake, alert, oriented x 3 and cooperative, seated upright in the ED bed, BiPAP in place, improved appearance compared to initial presentation, had been in acute respiratory distress with increased work of breathing, accessory muscle usage, conversational dyspnea. Skin: normal color, turgor, no icterus, cyanosis. HEENT: AT/NC, EOMI, PERRLA, mildly dry MM, no carotid bruits or JVD noted; however thickened neck makes examination difficult, BIPAP in place. Lungs: Diffusely diminished breath sounds, greater bilateral bases, mild distant rales bases, BiPAP in place currently, respiratory examination improved from initial presentation as had been hypoxic, increased work of breathing, accessory muscle usage and conversational dyspnea. Heart: Currently regular rate and rhythm on examination and on telemetry in room; no gallop, rub audible. Abdomen: soft, morbidly obese, NTTP, ND, normal BS, no HSM; however, habitus makes examination difficult. Extremities: no cyanosis, clubbing, bilateral lower extremity pedal to distal boyd pitting edema, suspect would be worse if patient not wearing compression stockings and only worse at dependent regions or less pressure. Neurological: patient awake, alert, oriented x 3; cognitive function intact; pupils equally reactive to light and accomodation; cranial nerves II-XII grossly normal, moving all 4 extremities, no focal deficits, strength severely globally decreased secondary to acute presentation. Psychiatric: affect appears fatigued, no acute evidence of depressive or anxiety feelings. - Physical Exam Vital Signs Temp Pulse Resp BP Pulse Ox 99.1 F 62 24 H 129/63 H 96 12/01/18 16:50 12/01/18 19:00 12/01/18 19:00 12/01/18 19:00 12/01/18 19:00 Oxygen Flow Rate (L/min) 4 Oxygen Delivery Method Bi-pap Weight: 278 lb 3.574 oz Body Mass Index (BMI) 42.3 Finger Stick Blood Glucose 132 Laboratory Tests Past 24 Hrs 12/01/18 12/01/18 12/01/18 17:05 17:05 17:05 WBC 10.5 RBC 2.52 L Hgb 8.7 L Hct 28.1 L MCV 111.5 H MCH 34.5 H MCHC 31.0 L RDW 18.1 H RDW Differential 74.1 H Plt Count 118 L MPV 12.6 H Immature Gran % (Auto) 2.200 H Neut % (Auto) 60.9 Lymph % (Auto) 12.5 L Morgan % (Auto) 22.4 H Eos % (Auto) 1.5 Baso % (Auto) 0.5 Absolute Neuts (auto) 6.4 Absolute Lymphs (auto) 1.31 Total Counted Not Reportable Differential Comment SEE COMMENT Diff Path Review May foll Platelet Estimate SLT DEC Anisocytosis 1+ Macrocytosis 1+ PT INR Sodium 138 Potassium 4.5 Chloride 107 Carbon Dioxide 28.0 Anion Gap 3 L BUN 40 H Creatinine 1.77 H Estim Creat Clear Calc 32.74 Est GFR (MDRD) Af Amer 48 L Est GFR (MDRD) Non-Af 40 L BUN/Creatinine Ratio 22.6 H Glucose 87 Lactic Acid 0.8 Calcium 8.5 Ammonia Troponin I 0.071 H B-Natriuretic Peptide 12/01/18 12/01/18 12/01/18 17:05 17:05 17:05 WBC RBC Hgb Hct MCV MCH MCHC RDW RDW Differential Plt Count MPV Immature Gran % (Auto) Neut % (Auto) Lymph % (Auto) Morgan % (Auto) Eos % (Auto) Baso % (Auto) Absolute Neuts (auto) Absolute Lymphs (auto) Total Counted Differential Comment Diff Path Review Platelet Estimate Anisocytosis Macrocytosis PT 17.5 H INR 1.5 Sodium Potassium Chloride Carbon Dioxide Anion Gap BUN Creatinine Estim Creat Clear Calc Est GFR (MDRD) Af Amer Est GFR (MDRD) Non-Af BUN/Creatinine Ratio Glucose Lactic Acid Calcium Ammonia 39.0 H Troponin I B-Natriuretic Peptide Pending Assessment/Plan All Active Problems Acute respiratory failure with hypoxia (Acute) CHF exacerbation (Acute) Pleural effusion (Acute) Acute chest pain (Acute) Hypoxemia (Acute) Dyspnea (Acute) Hyperglycemia (Acute) The patient is a 78 y/o M w/ PMHx: AOCD and Chronic Thrombocytopenia following w/ Dr. Oliveira, CKD stage III, Diabetes mellitus type II, Morbid Obesity, Chronic Liver Cirrhosis, HTN, HLD who presents to the [facility] ED on 12/01/18 with history of sudden onset dyspnea, worse with any exertional attempts with orthopnea, recent weight gain with admission ~ 1 month prior with decrease of lasix dose from BID to daily secondary to worsening renal function. (1) Acute Hypoxic Respiratory Failure secondary to Acute Decompensated Diastolic CHF: CXR obtained in the ED w/ evidence of congestion and questionable pneumonia however less suspicious given afebrile, no recent cough, congestion, fevers or chills and sudden shortness of breath onset on day of presentation with CBC with no market left shift and normal lactic acid. Patient administered IV lasix in the ED. Will admit to PCU, maintain on BIPAP, transition to NC as improves, maintain on cardiac telemetry obtain cardiac enzyme series, obtain serial EKGs, continue IV lasix diuresis, monitor I/Os, maintain on intake restriction, continue medical therapy w/ asa, statin, BB, spironolactone. Will obtain TSH and magnesium level. May consider Cardiology assessment pending re-evaluation. (2) ? New onset, Paroxsymal atrial fibrillation, Low Suspicion: EKG in ED w/ ? atrial fibrillation w/ RVR, telemetry in the ED sinus rhythm appearing and not convinced that EKG consistent w/ PAF. To be cautious will maintain on telemetry, obtain cardiac enzyme serial set, obtain magnesium level, recent ECHO as noted, obtain TSH level. CHADs scoring appropriate for anticoagulation start; however, given patient chronic anemia and thrombocytopenia poor candidate. Will administer lovenox therapeutic regimen x 1 now and re-evaluate. Repeat EKG in AM. (3) ? Pneumonia, Low Suspicion: Given Vanc and Zosyn x 1 in the ED, no recent concerning symptoms, afebrile, no marked WBC elevation or L shift, afebrile, will diurese as noted #1 and repeat CXR PA and Lateral in AM. If noted infiltrates or concerning changes may add back abx therapy as well as obtain further lab assessments. (4) CARBAJAL/Cirrhosis: Mildly elevated ammonia, no history of recent confusion, continue home nadolol, lactulose, spironolactone, xifaxan, IV Lasix as noted (5) Hypertension: Continue home regimen including spironolactone, nadolol, IV Lasix, PRN hydralazine. (6) Morbid Obesity: Weight loss and lifestyle changes encouraged, nutrition consulted. (7) Chronic anemia, iron deficiency: Admission hemoglobin 8.7, baseline hemoglobin similar, continue iron supplementation, repeat CBC in a.m. (8) Chronic thrombocytopenia: Admission platelets 118, baseline 60-70, well-appearing, repeat CBC in a.m. (9) Diabetes mellitus type II: Continue home insulin regimen, ADA diet, accu checks w/ ISS. (10) Chronic COPD: Will maintain on oxygen with wean as tolerated to room air, continue ATC duonebs, PRN albuterol, HOB, IS parameters. (11) Hypothyroidism: Continue home synthroid regimen, TSH and FT4 pending. (12) GERD: PPI. (13) DVT Prophylaxis: SCDs, therapeutic lovenox x 1 as noted above; however, lower suspicion for PAF. (14) CODE status: Discussed CODE status at length including difference between FULL code, DNR-CCA and DNR-CC status. Following discussions about the differences in these status, requested Full Code status. Patient son present is HCPOA and Living will in place. Advanced Care Planning Face to Face Time: 16 minutes. Code Visit Inpatient E&M: 23352 Init Hosp L3 Procedures: 37033 Advncd Care Plan 30 Min
--- NOTE | 2018-12-01 20:13 | HP.PCM_ITS ---
Problem List (1) Acute respiratory failure with hypoxia Status: Acute (2) CHF exacerbation Status: Acute Qualifiers: Heart failure type: diastolic Qualified Code(s): I50.33 - Acute on chronic diastolic (congestive) heart failure (3) Morbid obesity Status: Chronic (4) Chronic anemia Status: Chronic (5) Type 2 diabetes mellitus Status: Chronic Qualifiers: Diabetes mellitus prison insulin use: with prison use Diabetes mellitus complication status: with unspecified complications Qualified Code(s): E11.8 - Type 2 diabetes mellitus with unspecified complications; Z79.4 - care home (current) use of insulin (6) Hyperlipidemia Status: Chronic Qualifiers: Hyperlipidemia type: unspecified Qualified Code(s): E78.5 - Hyperlipidemia, unspecified (7) Liver cirrhosis Status: Chronic Qualifiers: Hepatic cirrhosis type: unspecified hepatic cirrhosis Ascites presence: unspecified Qualified Code(s): K74.60 - Unspecified cirrhosis of liver (8) Chronic kidney disease, stage III (moderate) Status: Chronic (9) HTN (hypertension) Status: Chronic Qualifiers: Hypertension type: essential hypertension Qualified Code(s): I10 - Essential (primary) hypertension History of Present Illness Date of Admission: 12/01/18 Chief Complaint: Dyspnea The patient is a 78 y/o M w/ PMHx: AOCD (Baseline Hgb 8) and Chronic Thrombocytopenia (Baseline Plts 60-70) following w/ Dr. Oliveira, CKD stage III (B aseline Cr 1.7-1.8), Diabetes mellitus type II, Morbid Obesity, Chronic Liver Cirrhosis, HTN, HLD who presents to the [facility] ED on 12/01/18 with history of sudden onset dyspnea, worse with any exertional attempts with orthopnea, recent weight gain with admission ~ 1 month prior with decrease of lasix dose from BID to daily secondary to worsening renal function. He denies any recent cough, congestion, fever, chills, malaise. He notes that it came on more suddenly as far as severe dyspnea, prompting EMS call. At home his son checked his oxygenation at noted it was 65%. Work-up in the ED included T 99.1, heart rate 92, BP initially 180/78, respiratory rate initially 25, 94% on 4 L nasal cannula--> placed on BiPAP with vital sign improvement to heart rate 62, BP 129/63, respiratory rate 24, 96% on BiPAP, CBC with W BC 10.5, hemoglobin 8.7, platelet 118 without market left shift, INR 1.5, BMP with BUN/creatinine 40/1.77, lactic acid 0.8, ammonia 39, troponin 0 0.071, BNP pending, culture x2 pending per ED, chest x-ray with chronic COPD changes with a superimposed right perihilar infiltrate versus pulmonary edema and mid left lower lobe atelectasis versus infiltrate, EKG w/ ? atrial fibrillation although on telemetry appeared sinus rhythm. In the ED patient administered Zosyn, Zofran, 40 mg IV x1 Lasix, DuoNeb, vancomycin. Past Medical History Past Medical History (Chronic Problems): Chronic Problems Morbid obesity (Chronic) Aortic stenosis (Chronic) Chronic anemia (Chronic) Type 2 diabetes mellitus (Chronic) Hyperlipidemia (Chronic) Liver cirrhosis (Chronic) Chronic kidney disease, stage III (moderate) (Chronic) CKD (chronic kidney disease) (Chronic) HTN (hypertension) (Chronic) Allergies No Known Allergies Allergy (Verified 12/01/18 16:49) Home Medications: Ambulatory Orders Medication Instructions Recorded Levothyroxine [Synthroid] 25 mcg PO DAILY 11/23/16 Pantoprazole Sodium [Protonix] 40 mg PO DAILY 11/23/16 Rifaximin [Xifaxan] 550 mg PO BID 11/23/16 Simvastatin [Zocor] 20 mg PO DAILY 11/23/16 Ferrous Sulfate 325 mg PO DAILY 10/05/17 Desoximetasone 0.25% [Topicort Crm 1 applic TOPICAL DAILY 04/04/18 0.25%] Albuterol IH (ProAir) [Proair Hfa] 1 puff INHALATION Q6H PRN PRN #1 11/04/18 inhaler Furosemide [Lasix] 80 mg PO QODAY 12/01/18 Insulin Glargine [Lantus SoloStar 25 units SC BID 12/01/18 Pen] Insulin Lispro [Humalog KwikPen] 12 unit SQ BREAKFAST 12/01/18 Insulin Lispro [Humalog KwikPen] 15 units SQ DINNER 12/01/18 Insulin Lispro [Humalog KwikPen] 24 units SQ LUNCH 12/01/18 Lactulose [Constulose] 30 ml PO BID 12/01/18 Multivit-Min/FA/Lycopen/Lutein 1 each PO DAILY 12/01/18 [Centrum Silver Men Tablet] Nadolol [Corgard] 40 mg PO DAILY 12/01/18 Psyllium Husk [Metamucil] 0.4 gm PO QHS 12/01/18 Spironolactone 100 mg PO DAILY 12/01/18 Surgical History: - - prostate surgery, hernia surgery, circumcision Psychiatric History: No pertinent psych hx Lives: Spouse/ Significant Other Smoking Status: Former smoker Tobacco Use: Non-smoker Alcohol: None Drugs: None - *Family History Maternal History Items: Diabetes Paternal History Items: Cancer - Prostate Review of Systems Constitutional: Reports: Fatigue. Denies: Anorexia, Chills, Fever, Malaise, Weakness, Weight Change HEENT: Denies: Head Aches, Sinus Congestion, Sinus Drainage Cardiovascular: Reports: Edema, Orthopnea. Denies: Chest Pain, Chest Pressure, Chest Tightness, Heaviness, Light Headedness, Palpitations Respiratory: Reports: Shortness of Breath, Shortness of breath upon exertion. Denies: Cough, Shortness of breath at rest, Sputum production, Wheezing Gastrointestinal: Denies: Abdominal Pain, Nausea, Vomiting Genitourinary: Reports: Retention - Occasional issues with retention.. Denies: Dysuria Musculoskeletal: Reports: Joint Pain. Denies: Joint Tenderness Skin: Denies: Rash, Wounds Neurological: Denies: Numbness, Tingling, Focal weakness Psychiatric: Denies: Anxiety, Depression, Homicidal Ideations, Suicidal Ideations Hematologic/ Lymphatic: Reports: Anemia, Easy Bruising, Easy Bleeding VTE Information - Inpt Only VTE Present on Admission: No VTE Mechan Device Prophylaxis: SCD's VTE Pharm Prophylaxis ordered?: Yes Patient Problems: Active and Suspected Problems Acute respiratory failure with hypoxia (Acute) CHF exacerbation (Acute) Subjective: Seated upright in ED bed, fatigued appearance, BiPAP in place, notes feeling improved since initial presentation at which point he had been in acute respiratory distress with hypoxia, increased respiratory rate, conversational dyspnea, accessory muscle usage. Objective: Physical Examination: General: awake, alert, oriented x 3 and cooperative, seated upright in the ED bed, BiPAP in place, improved appearance compared to initial presentation, had been in acute respiratory distress with increased work of breathing, accessory muscle usage, conversational dyspnea. Skin: normal color, turgor, no icterus, cyanosis. HEENT: AT/NC, EOMI, PERRLA, mildly dry MM, no carotid bruits or JVD noted; however thickened neck makes examination difficult, BIPAP in place. Lungs: Diffusely diminished breath sounds, greater bilateral bases, mild distant rales bases, BiPAP in place currently, respiratory examination improved from initial presentation as had been hypoxic, increased work of breathing, accessory muscle usage and conversational dyspnea. Heart: Currently regular rate and rhythm on examination and on telemetry in room; no gallop, rub audible. Abdomen: soft, morbidly obese, NTTP, ND, normal BS, no HSM; however, habitus makes examination difficult. Extremities: no cyanosis, clubbing, bilateral lower extremity pedal to distal boyd pitting edema, suspect would be worse if patient not wearing compression stockings and only worse at dependent regions or less pressure. Neurological: patient awake, alert, oriented x 3; cognitive function intact; pupils equally reactive to light and accomodation; cranial nerves II-XII grossly normal, moving all 4 extremities, no focal deficits, strength severely globally decreased secondary to acute presentation. Psychiatric: affect appears fatigued, no acute evidence of depressive or anxiety feelings. - Physical Exam Vital Signs Temp Pulse Resp BP Pulse Ox 99.1 F 62 24 H 129/63 H 96 12/01/18 16:50 12/01/18 19:00 12/01/18 19:00 12/01/18 19:00 12/01/18 19:00 Oxygen Flow Rate (L/min) 4 Oxygen Delivery Method Bi-pap Weight: 278 lb 3.574 oz Body Mass Index (BMI) 42.3 Finger Stick Blood Glucose 132 Laboratory Tests Past 24 Hrs 12/01/18 12/01/18 12/01/18 17:05 17:05 17:05 WBC 10.5 RBC 2.52 L Hgb 8.7 L Hct 28.1 L MCV 111.5 H MCH 34.5 H MCHC 31.0 L RDW 18.1 H RDW Differential 74.1 H Plt Count 118 L MPV 12.6 H Immature Gran % (Auto) 2.200 H Neut % (Auto) 60.9 Lymph % (Auto) 12.5 L [place] % (Auto) 22.4 H Eos % (Auto) 1.5 Baso % (Auto) 0.5 Absolute Neuts (auto) 6.4 Absolute Lymphs (auto) 1.31 Total Counted Not Reportable Differential Comment SEE COMMENT Diff Path Review May foll Platelet Estimate SLT DEC Anisocytosis 1+ Macrocytosis 1+ PT INR Sodium 138 Potassium 4.5 Chloride 107 Carbon Dioxide 28.0 Anion Gap 3 L BUN 40 H Creatinine 1.77 H Estim Creat Clear Calc 32.74 Est GFR (MDRD) Af Amer 48 L Est GFR (MDRD) Non-Af 40 L BUN/Creatinine Ratio 22.6 H Glucose 87 Lactic Acid 0.8 Calcium 8.5 Ammonia Troponin I 0.071 H B-Natriuretic Peptide 12/01/18 12/01/18 12/01/18 17:05 17:05 17:05 WBC RBC Hgb Hct MCV MCH MCHC RDW RDW Differential Plt Count MPV Immature Gran % (Auto) Neut % (Auto) Lymph % (Auto) [place] % (Auto) Eos % (Auto) Baso % (Auto) Absolute Neuts (auto) Absolute Lymphs (auto) Total Counted Differential Comment Diff Path Review Platelet Estimate Anisocytosis Macrocytosis PT 17.5 H INR 1.5 Sodium Potassium Chloride Carbon Dioxide Anion Gap BUN Creatinine Estim Creat Clear Calc Est GFR (MDRD) Af Amer Est GFR (MDRD) Non-Af BUN/Creatinine Ratio Glucose Lactic Acid Calcium Ammonia 39.0 H Troponin I B-Natriuretic Peptide Pending Assessment/Plan All Active Problems Acute respiratory failure with hypoxia (Acute) CHF exacerbation (Acute) Pleural effusion (Acute) Acute chest pain (Acute) Hypoxemia (Acute) Dyspnea (Acute) Hyperglycemia (Acute) The patient is a 78 y/o M w/ PMHx: AOCD and Chronic Thrombocytopenia following w/ Dr. Oliveira, CKD stage III, Diabetes mellitus type II, Morbid Obesity, Chronic Liver Cirrhosis, HTN, HLD who presents to the [facility] ED on 12/01/18 with history of sudden onset dyspnea, worse with any exertional attempts with orthopnea, recent weight gain with admission ~ 1 month prior with decrease of lasix dose from BID to daily secondary to worsening renal function. (1) Acute Hypoxic Respiratory Failure secondary to Acute Decompensated Diastolic CHF: CXR obtained in the ED w/ evidence of congestion and questionable pneu monia however less suspicious given afebrile, no recent cough, congestion, fevers or chills and sudden shortness of breath onset on day of presentation with CBC with no market left shift and normal lactic acid. Patient administered IV lasix in the ED. Will admit to PCU, maintain on BIPAP, transition to NC as improves, maintain on cardiac telemetry obtain cardiac enzyme series, obtain serial EKGs, continue IV lasix diuresis, monitor I/Os, maintain on intake restriction, continue medical therapy w/ asa, statin, BB, spironolactone. Will obtain TSH and magnesium level. May consider Cardiology assessment pending re- evaluation. (2) ? New onset, Paroxsymal atrial fibrillation, Low Suspicion: EKG in ED w/ ? atrial fibrillation w/ RVR, telemetry in the ED sinus rhythm appearing and not convinced that EKG consistent w/ PAF. To be cautious will maintain on telemetry, obtain cardiac enzyme serial set, obtain magnesium level, recent ECHO as noted, obtain TSH level. CHADs scoring appropriate for anticoagulation start; however, given patient chronic anemia and thrombocytopenia poor candidate. Will administer lovenox therapeutic regimen x 1 now and re-evaluate. Repeat EKG in AM. (3) ? Pneumonia, Low Suspicion: Given Vanc and Zosyn x 1 in the ED, no recent concerning symptoms, afebrile, no marked WBC elevation or L shift, afebrile, will diurese as noted #1 and repeat CXR PA and Lateral in AM. If noted infiltrates or concerning changes may add back abx therapy as well as obtain further lab assessments. (4) CARBAJAL/Cirrhosis: Mildly elevated ammonia, no history of recent confusion, continue home nadolol, lactulose, spironolactone, xifaxan, IV Lasix as noted (5) Hypertension: Continue home regimen including spironolactone, nadolol, IV Lasix, PRN hydralazine. (6) Morbid Obesity: Weight loss and lifestyle changes encouraged, nutrition consulted. (7) Chronic anemia, iron deficiency: Admission hemoglobin 8.7, baseline hemoglobin similar, continue iron supplementation, repeat CBC in a.m. (8) Chronic thrombocytopenia: Admission platelets 118, baseline 60-70, well- appearing, repeat CBC in a.m. (9) Diabetes mellitus type II: Continue home insulin regimen, ADA diet, accu checks w/ ISS. (10) Chronic COPD: Will maintain on oxygen with wean as tolerated to room air, continue ATC duonebs, PRN albuterol, HOB, IS parameters. (11) Hypothyroidism: Continue home synthroid regimen, TSH and FT4 pending. (12) GERD: PPI. (13) DVT Prophylaxis: SCDs, therapeutic lovenox x 1 as noted above; however, lower suspicion for PAF. (14) CODE status: Discussed CODE status at length including difference between FULL code, DNR-CCA and DNR-CC status. Following discussions about the differences in these status, requested Full Code status. Patient son present is HCPOA and Living will in place. Advanced Care Planning Face to Face Time: 16 minutes. Code Visit Inpatient E&M: 18370 Init Hosp L3 Procedures: 73617 Advncd Care Plan 30 Min
[2018-12-01 20:26] LABS: BNP,B-Type NATRIURETIC PEPTIDE 971.4 pg/mL (0-100)
[2018-12-01] MEDS: Psyllium 1 PACKET PO (22:47)
[2018-12-01] MEDS: Enoxaparin 150 MG/ML Syringe 130 MG SC (22:47)
[2018-12-01] MEDS: Furosemide 100 MG/10 ML Vial 60 MG IV (22:48)
[2018-12-01] MEDS: Atorvastatin Calcium 10 MG Tablet PO (22:48)
[2018-12-01] MEDS: rifAXIMin 550 MG Tablet PO (22:48)
[2018-12-01] MEDS: Lactulose 20 GM/30 ML UDC PO (22:48)
[2018-12-01 22:50] LABS: T4 Free Direct 0.92 ng/dL (0.76-1.46)
[2018-12-01 23:36] LABS: Bedside Glucose 107 mg/dL (70-110)
[2018-12-02] VITALS (24 sets, daily range): BP systolic 103–149; BP diastolic 39–57; PULSE 62–78; RESP 12–24; TEMP 36.9–38.1; O2SAT 94–99
[2018-12-02 03:59] LABS: Absolute Lymphocyte Count 0.83 X10^3/ul (0.83-4.51); Absolute Neutrophil Count 2.9 X10^3/uL (2.0-7.7); Basophil# 0.01 X10^3/uL; Basophil% 0.2 % (0-1); Eosinophil# 0.08 X10^3/uL; Eosinophils% 1.7 % (0-5); Hematocrit 23.2 % (40-54); Hemoglobin 7.1 g/dl (13.0-16.5); Lymphocyte # 0.83 X10^3/ul (4.0); Lymphocyte % 17.3 % (19-41); Mean Corp Hgb Conc 30.6 g/gl (32-36); Mean Corpuscular Hgb 34.8 pg (27.0-32.0); Mean Corpuscular Volume 113.7 fL (80-94); Mean Platelet Vol. 11.6 fl (6.2-12.0); Monocyte# 0.95 X10^3/uL; Monocyte% 19.8 % (0-10); Neutrophil % 60.2 % (47-70); Platelet Count 68 K/mm3 (150-450); RBC Distribution Width CV 17.6 % (11.6-14.6); RBC Distribution Width SD 69.7 fl (35.1-43.9); Red Blood Count 2.04 M/mm3 (4.6-6.2); White Blood Count 4.8 K/mm3 (4.4-11.0)
[2018-12-02 04:05] LABS: Differential Indicated SCAN CRITERIA MET; POSITIVE COUNT NO; POSITIVE DIFFERENTIAL NO; POSITIVE MORPHOLOGY YES
[2018-12-02 04:39] LABS: ALB/GLOB Ratio 0.6 RATIO (0.9-2.4); AST(SGOT) 37 U/L (15-37); Alanine Aminotransfer ALT/SGPT 33 U/L (16-61); Albumin, Serum 2.6 g/dL (3.2-5.0); Alkaline Phosphatase 92 U/L (45-117); Anion Gap 8 (5-15); BUN 43 mg/dL (7-18); BUN/Creat Ratio 21.5 RATIO (10-20); Chloride 107 mmol/L (98-107); Cholesterol 90 mg/dL (200); EST Glomerular Filtration Rate 34 mL/min (>60); Est Glom Filt Rate - Afr Amer 42 mL/min (>60); Estimated Creatinine Clearance 28.98 ml/min; Globulin 4.5 g/dL (2.2-4.2); Glucose 150 mg/dL (74-106); High Density Lipoprotein 36 mg/dL; Potassium 4.1 mmol/L (3.5-5.1); Protein, Total 7.1 g/dL (6.4-8.2); Sodium Level 141 mmol/L (136-145); Triglycerides 67 mg/dL; Very Low Density Lipoprotein 13 mg/dL (5-40)
[2018-12-02] MEDS: Albuterol 2.5 MG/3 ML VIAL.NEB. INHALATION (04:50)
[2018-12-02 04:56] LABS: Anisocytosis 1+; Differential Comment SCAN; Hypochromasia 1+; Microcytosis 1+; Platelet Estimate MOD DEC (ADEQ); Platelet Morphology LARGE; Polychromasia 1+
--- NOTE | 2018-12-02 05:55 | EKG12_ITS ---
Test Reason : MORNING EKG Blood Pressure : / mmHG Vent. Rate : 068 BPM Atrial Rate : 068 BPM P-R Int : 170 ms QRS Dur : 092 ms QT Int : 408 ms P-R-T Axes : 065 057 045 degrees QTc Int : 433 ms Sinus rhythm with occasional Premature ventricular complexes Otherwise normal ECG When compared with ECG of 01-DEC-2018 16:54, MANUAL COMPARISON REQUIRED, DATA IS UNCONFIRMED Confirmed by JAGUAR MCCONNELL, MAGY ([id number]), telegraph editor ANGIE ORTEGA ([id number]) on 12/07/2018 5:18:22 PM Referred By: PIERO Confirmed By:MAGY MONTESINOS MD
--- NOTE | 2018-12-02 06:00 | RAD_ITS ---
STUDY: X-RAY CHEST REASON FOR EXAM: Male, 78 years old. Shortness of breath. TECHNIQUE: AP and lateral views of the chest. COMPARISON: Comparison is made with prior study dated December 01, 2018. FINDINGS: EKG electrodes are seen. There is evidence of vascular congestion and CHF with superimposed atelectasis at the right lung base. Blunting of the left costophrenic angle. There is moderate cardiac enlargement. Normal mediastinum and jeannine. Normal visualized pulmonary arteries. There is atherosclerotic tortuosity of the aortic arch and descending thoracic aorta. There are diffuse degenerative changes of the visualized thoracic spine. Normal visualized ribs, clavicles, and shoulders. There is no demonstrated abnormality of the visualized soft tissue structures of the upper abdomen. RAD/Chest PA and Lateral IMPRESSION: Cardiomegaly and CHF. Electronically Signed: Eliecer Lainez, at 9:48 EDT , Service support ,
[2018-12-02] MEDS: 0.9% NaCl Peripheral Flush Adult/Peds IV ×4 (06:22→21:42)
[2018-12-02] MEDS: Furosemide 100 MG/10 ML Vial 60 MG IV ×3 (06:22→21:26)
[2018-12-02] MEDS: Levothyroxine 25 MCG TABLET PO (06:22)
[2018-12-02 06:51] LABS: Bedside Glucose 126 mg/dL (70-110)
[2018-12-02] MEDS: Ipratropium/Albuterol Sulfate 3 ML AMPUL.NEB INHALATION ×3 (07:13→18:51)
[2018-12-02] MEDS: Insulin Lispro 100 UNIT/ML INSULN.PEN 12 UNIT SC (08:39)
[2018-12-02] MEDS: Nadolol 40 MG Tablet PO ×2 (08:43)
[2018-12-02] MEDS: Ferrous Sulfate 325 MG Tablet PO (08:43)
[2018-12-02] MEDS: rifAXIMin 550 MG Tablet PO ×2 (08:43→21:28)
[2018-12-02] MEDS: Lactulose 20 GM/30 ML UDC PO ×2 (08:43→21:24)
[2018-12-02] MEDS: Spironolactone 50 MG Tablet 100 MG PO (08:43)
[2018-12-02] MEDS: Pantoprazole Sodium 40 MG Tablet PO (08:43)
[2018-12-02] MEDS: Clobetasol Propionate 0.05% Cream 1 APPLIC TOPICAL (08:43)
[2018-12-02 11:41] LABS: Bedside Glucose 189 mg/dL (70-110)
--- NOTE | 2018-12-02 11:56 | CASEMGMT ---
Addendum entered by Cecelia Kemp 12/02/18 15:49: SW called Moy with [employer] and left a message, she had called and left a message earlier. MARLENY Stahl, CAMELID FIBER SORTER Original Note: SW met w/pt in room, pt's son also present. Pt seems alert and oriented, slow to answer questions though answers to seem accurate. PCP: Kayla Bernstein Pharmacy: [facility] Insurance/Prescription benefit: [facility] LNOK: Pt has 6 children as per son in the room. Living arrangements: Pt lives w/daughter in studio apartment in basement. Pt's ex- and live upstairs along w/the youngest child. LW/POA: As per son in room, son Rubén is POA. SW asked son in room to bring in papers for the chart if able Prior level of care: Pt sets up his own meds, sponge bathes. Pt cooks eggs in the morning, family helps with other meals. Pt's daughter Addie takes pt to appointments. Family and aide services assist with ADL's as well. DME: Walker, cane rollator. Pt has no home O2, if O2 needed, states has no preference for DME company if O2 needed. Pt is fine w/referral to [facility]/Passport: Pt has Passport services, aide services through [employer], 16 hours/week. Moy Torrez is pt's piano case maker. SW called [facility] and let covering piano case maker know pt is here. SW also called [facility], confirmed they are current w/this pt. SW spoke w/pt in regard to discharge plan, pt plans to return home at discharge, declined referral for skilled home health care. SW will continue to follow for discharge home w/services through [employer]. CM aware pt may need home O2 at discharge. MARLENY Stahl
--- NOTE | 2018-12-02 12:10 | CASEMGMT ---
[facility]O [facility]RED Readmission Chart Review: Pt was initially admitted 10/31-11/02/18 for bilat pleural effusions, anemia and cirrhosis secondary CARBAJAL. See assessment completed by Cinthia ISABEL CM on 11/02/18. Pt readmitted 12/01/18 with CHF, Acute respiratory failure w/ hypoxia. Pt does have passport services w/ Ruth Hutchinson as CM. Scotty SW aware, voices understanding. CM to follow for home oxygen need and for any further discharge planning/needs. Therapy did recommend HHC during last visit but pt/daughter declined at that time. CM to follow PT/OT notes, as well. Pt states no preference for [employer] company at time of discharge, if qualifies. SStkuldeep ISABEL CM
[2018-12-02] MEDS: Insulin Lispro 100 UNIT/ML INSULN.PEN 24 UNIT SC (12:12)
[2018-12-02 12:16] LABS: Pathologist Review Reviewed
--- NOTE | 2018-12-02 14:31 | PN_ITS ---
Patient Problems: Active and Suspected Problems Acute respiratory failure with hypoxia (Acute) CHF exacerbation (Acute) Subjective: Patient seen and examined. He was admitted with a complaint of shortness of breath. His pulse ox was 65% at home. On admission, he was found to be in heart failure with elevated BNP of around 917. He is being diuresed, and was given one dose of therapeutic lovenox o/a of suspicion for new onset Afib. Patient seen and examined. His son was by his bedside. He had no complaints. He was on 1 L of oxygen. He denied any chest pain but admitted that he had had chest pain yesterday with the shortness of breath. He described the pain as pressure-like. He denies any fever or chills, palpitations or dizziness, diarrhea vomiting. Labs and vitals reviewed. Hemoglobin noted to have dropped to 7.1 today. He denies any melena stools or coffee ground emesis. Review of systems otherwise negative. Vitals/I&O's: Vital Signs Temp Pulse Resp BP Pulse Ox 99.2 F H 72 19 H 114/39 L 97 12/02/18 14:25 12/02/18 14:25 12/02/18 14:25 12/02/18 14:25 12/02/18 14:25 Oxygen Flow Rate (L/min) 2 Oxygen Delivery Method Nasal Cannula Weight: 270 lb 15.17 oz Body Mass Index (BMI) 41.4 Finger Stick Blood Glucose 132 Intake and Output for Last 24 Hours 11/30/18 12/01/18 12/02/18 23:59 23:59 23:59 Intake Total 1212 / 1212 410 / 410 Output Total 150 / 150 2200 / 2200 Balance 1062 / 1062 -1790 / -1790 General: Alert, Oriented x3, Cooperative, Lethargic HEENT: Atraumatic, PERRLA, EOMI, Normocephalic Oral: Dry Mucosa Neck: Supple, No JVD, Negative Carotid Bruits Lungs: - - decreaesed breath sounds bibasally, with mild crackles bibasally, no wheezing. on 1L of oxygen at time of review Cardiovascular: Regular rate, Regular Rhythm, Normal S1, Normal S2, No murmurs Abdomen: Bowel Sounds Present, Soft, Non Tender, Non-Distended Extremities: No clubbing, No cyanosis, - - 1+ bipedal pitting edema of LEs and UEs. Skin: No rashes, No breakdown Musculoskeletal: No Tenderness to Palpation of Joints or Extremities Lymphatic: No Cervical, Supraclavicular, or Inguinal Adenopathy Neurological: Cranial nerves II-XII grossly intact, Neuro grossly intact, Motor Exam 5/5 strength throughout Psych/Mental Status: Normal Affect, Appropriate, Alert and oriented to time, place, person, mood and affect Laboratory Results 12/01/18 17:05: WBC 10.5, RBC 2.52 L, Hgb 8.7 L, Hct 28.1 L, MCV 111.5 H, MCH 34.5 H, MCHC 31.0 L, RDW 18.1 H, RDW Differential 74.1 H, Plt Count 118 L, MPV 12.6 H, Immature Gran % (Auto) 2.200 H, Neut % (Auto) 60.9, Lymph % (Auto) 12.5 L, [place] % (Auto) 22.4 H, Eos % (Auto) 1.5, Baso % (Auto) 0.5, Absolute Neuts (auto) 6.4, Absolute Lymphs (auto) 1.31, Total Counted Not Reportable, Differential Comment SEE COMMENT, Diff Path Review Reviewed, Platelet Estimate SLT DEC, Anisocytosis 1+, Macrocytosis 1+ 12/01/18 17:05: Sodium 138, Potassium 4.5, Chloride 107, Carbon Dioxide 28.0, Anion Gap 3 L, BUN 40 H, Creatinine 1.77 H, Estim Creat Clear Calc 32.74, Est GFR (MDRD) Af Amer 48 L, Est GFR (MDRD) Non-Af 40 L, BUN/Creatinine Ratio 22.6 H , Glucose 87, Calcium 8.5, Troponin I 0.071 H 12/01/18 17:05: Lactic Acid 0.8 12/01/18 17:05: B-Natriuretic Peptide 971.4 H 12/01/18 17:05: PT 17.5 H, INR 1.5 12/01/18 17:05: Ammonia 39.0 H 12/01/18 22:11: POC Glucose 107 12/01/18 22:15: Magnesium 2.0, Troponin I 0.094 H, TSH 1.70, Free T4 0.92 12/02/18 00:49: Troponin I 0.078 H 12/02/18 03:46: WBC 4.8, RBC 2.04 L, Hgb 7.1 L, Hct 23.2 L, MCV 113.7 H, MCH 34.8 H, MCHC 30.6 L, RDW 17.6 H, RDW Differential 69.7 H, Plt Count 68 L, MPV 11.6, Immature Gran % (Auto) 0.800, Neut % (Auto) 60.2, Lymph % (Auto) 17.3 L, [place] % (Auto) 19.8 H, Eos % (Auto) 1.7, Baso % (Auto) 0.2, Absolute Neuts (auto) 2.9, Absolute Lymphs (auto) 0.83, Total Counted Not Reportable, Differential Comment SCAN, Platelet Estimate MOD DEC, Plt Morphology Comment LARGE, Polychromasia 1+, Hypochromasia 1+, Anisocytosis 1+, Microcytosis 1+ 12/02/18 03:46: Sodium 141, Potassium 4.1, Chloride 107, Carbon Dioxide 26.0, Anion Gap 8, BUN 43 H, Creatinine 2.00 H, Estim Creat Clear Calc 28.98, Est GFR (MDRD) Af Amer 42 L, Est GFR (MDRD) Non-Af 34 L, BUN/Creatinine Ratio 21.5 H, Glucose 150 H, Calcium 8.0 L, Total Bilirubin 0.90, AST 37, ALT 33, Alkaline Phosphatase 92, Total Protein 7.1, Albumin 2.6 L, Globulin 4.5 H, Albumin/Globulin Ratio 0.6 L, Triglycerides 67, Cholesterol 90, LDL Cholesterol 41, VLDL Cholesterol 13, HDL Cholesterol 36 L 12/02/18 03:46: Ammonia 50.0 H 12/02/18 03:46: Troponin I 0.096 H 12/02/18 06:43: POC Glucose 126 H 12/02/18 09:15: Blood Type A POSITIVE, Antibody Screen NEGATIVE, Crossmatch See Detail 12/02/18 09:15: Crossmatch See Detail 12/02/18 11:35: POC Glucose 189 H Diagnostic Data Chest X-Ray 12/02/18 06:00 IMPRESSION: Cardiomegaly and CHF. Electronically Signed: Eliecer Lainez, at 9:48 EDT , Service support , Current Medications Acetaminophen (Tylenol) 650 mg PO Q6H PRN PRN PRN Reason: Non-cardiac pain (mod-severe) Hydrocodone Bitart/Acetaminophen ([place] 5mg-325mg) 1 - 2 tablet PO Q6H PRN PRN PRN Reason: MOD-SEVERE PAIN (4-1010) Al Hydroxide/Mg Hydroxide (Mylanta Ii) 15 - 30 ml PO Q4H PRN PRN PRN Reason: INDIGESTION Albuterol Sulfate (Ventolin Aerosols) 2.5 mg INHALATION Q2H PRN PRN PRN Reason: dyspnea, wheezing Last Admin: 12/02/18 04:50 Dose: 2.5 mg Albuterol/Ipratropium (Duoneb) 3 ml INHALATION Q4HWA.RT [facility] [place] Last Admin: 12/02/18 10:44 Dose: Not Given Atorvastatin Calcium (Lipitor) 10 mg PO DAILY@2200 [facility] [place] Last Admin: 12/01/18 22:48 Dose: 10 mg Clobetasol Propionate (Temovate Cream (Bkc)) 1 applic TOPICAL DAILY [facility] [place]; Protocol Last Admin: 12/02/18 08:43 Dose: 1 applic Ferrous Sulfate (Ferrous Sulfate) 325 mg PO DAILYCM [facility] [place] Last Admin: 12/02/18 08:43 Dose: 325 mg Furosemide (Lasix) 60 mg IV Q8 [facility] [place] Last Admin: 12/02/18 06:22 Dose: 60 mg Hydralazine HCl (Apresoline Iv) 10 mg IV Q4H PRN PRN PRN Reason: SBP > 160 Insulin Glargine (Lantus (Bkc)) 25 units SC BID [facility] [place] Last Admin: 12/02/18 08:40 Dose: 25 u Insulin Human Lispro (Humalog Kwikpen (Bkc)) 12 unit SC BREAKFAST [facility] [place] Last Admin: 12/02/18 08:39 Dose: 12 units Insulin Human Lispro (Humalog Kwikpen (Bkc)) 15 unit SC DINNER [facility] [place] Insulin Human Lispro (Humalog Kwikpen (Bkc)) 24 unit SC LUNCH [facility] [place] Last Admin: 12/02/18 12:12 Dose: 24 units Lactulose (Chronulac, Cephulac) 20 gm PO BID [facility] [place] Last Admin: 12/02/18 08:43 Dose: 20 gm Levothyroxine Sodium (Synthroid) 25 mcg PO DAILY@0600 [facility] [place] Last Admin: 12/02/18 06:22 Dose: 25 mcg Magnesium Hydroxide (Milk Of Magnesia) 30 ml PO DAILY PRN PRN Reason: Constipation Morphine Sulfate () 1 - 2 mg IV Q4H PRN PRN PRN Reason: PAIN Nadolol (Corgard) 40 mg PO DAILY [facility] [place] Last Admin: 12/02/18 08:43 Dose: 40 mg Nitroglycerin (Nitrostat) 0.4 mg SUBLINGUAL Q5M PRN PRN Reason: CARDIAC/CHEST PAIN Ondansetron HCl (Zofran) 4 mg IV Q8H PRN PRN PRN Reason: NAUSEA/VOMITING Pantoprazole Sodium (Protonix) 40 mg PO DAILY [facility] [place] Last Admin: 12/02/18 08:43 Dose: 40 mg Psyllium Hydrophilic Mucilloid (Metamucil) 1 packet PO QHS [facility] [place] Last Admin: 12/01/18 22:47 Dose: 1 packet Rifaximin (Xifaxan) 550 mg PO BID [facility] [place] Last Admin: 12/02/18 08:43 Dose: 550 mg Sodium Chloride () 5 - 15 ml IV UD PRN PRN Reason: SALINE FLUSH Last Admin: 12/02/18 06:22 Dose: 10 ml Spironolactone (Aldactone) 100 mg PO DAILY [facility] [place] Last Admin: 12/02/18 08:43 Dose: 100 mg Medical Necessity - Tobacco Use Smoking Status: Former smoker Tobacco Use: Non-smoker Assessment/Plan All Active Problems Acute respiratory failure with hypoxia (Acute) CHF exacerbation (Acute) Pleural effusion (Acute) Acute chest pain (Acute) Hypoxemia (Acute) Dyspnea (Acute) Hyperglycemia (Acute) 1. Acute hypoxic respiratory failure due to [id number] diastolic heart failure * BNP was 971 * on IV lasix 40mg bid * was on BIPAP overnight, now on 1L of [place] oxygen at time of reivew. * continue diuresis with IV lasix. monitor input and output. put out 2.2L of urine over last 24 hours. * fluid restriction to 1500cc daily * Echo (11/10): EF of 60% with mild concentric left ventricular hypertrophy and normal left ventricular systolic function. No regional wall motion abnormalities noted. * On beta-thais and spironolactone. Will continue. * TSH was within normal limits. * 2. Elevated troponins: * Troponin was 0.076 admission and peaked at 0.096. * EKG did not show any acute ST changes. * Did receive 1 dose of therapeutic Lovenox on account of questionable new onste A. fib. * cardiology consulted in light of troponins and history of chest pain with on set of symptoms yesterday. * will start aspirin and statin. * 3. Acute on chronic diastolic heart failure exacerbation * as under 1. * 4. Anemia: * Hb is 7.1 today; was 8.7 on admission. * Transfused with 2 units of packed red blood cells. Check fecal occult blood stool and check iron panel. * 5. ? New onste Afib: * EKG in ED showed questionable Afib with RVR. * Has been in sinus rhythm since. Was given one dose of therapeutic lovenox. * Will hold off on lovenox for now. TSH was WNL, Mg and K were also WNL. * WIll monitor per telemetry * 6. Cirrhosis due to nonalcoholic steatohepatitis: Ammonia is up to 50 today. Was in 30s yesterday. On lactulose. Also on spironolactone, nadolol and Xifaxan. 7. Hypertension: On spironolactone and nadolol. 8. Chronic thrombocytopenia: Platelets fell further to 68 today from 118 on admission. This is chronic and is due to liver disease. Will monitor. 9. CKD stage III: Creatinine is 2 today. Was 1.77 on admission. This around his baseline. Will monitor. 10. Hypothyroidism: On Synthroid. 11. Type 2 diabetes mellitus: On insulin. Actos AC at bedtime. Insulin sliding scale. 12. COPD: Breathing treatments. Titrate oxygen to maintain above 90%. 13. GERD: On PPI. 14. Morbid obesity: Complicates care and management as well as expected recovery. DVT prophylaxis; SCDs, no anticoagulation o.a of thrombocytopenia and anemia Code status: full code Code Visit Inpatient E&M: 48622 Subs Hosp L3
--- NOTE | 2018-12-02 15:59 | PCM.CONS.C ---
Problem List (1) Acute respiratory failure with hypoxia Status: Acute (2) CHF exacerbation Status: Acute Qualifiers: Heart failure type: diastolic Qualified Code(s): I50.33 - Acute on chronic diastolic (congestive) heart failure (3) Aortic stenosis Status: Chronic (4) Hypoxemia Status: Acute (5) Dyspnea Status: Acute (6) Hyperlipidemia Status: Chronic Qualifiers: Hyperlipidemia type: unspecified Qualified Code(s): E78.5 - Hyperlipidemia, unspecified (7) CKD (chronic kidney disease) Status: Chronic Reason for Consult Date of Consultation: 12/02/18 Reason for Consultation: Aortic stenosis, CHF, anemia, paroxysmal atrial fibrillation, mild pulmonary hypertension History of Present Illness: The patient is a 78 year old M, patient of Dr. Bill, with a known history of aortic stenosis, diabetes, morbid obesity, hypertension, hypercholesterolemia, liver cirrhosis, chronic renal insufficiency, with no known coronary artery disease. The patient was admitted several weeks ago with congestive heart failure symptoms, and underwent a 2D echo with Doppler on 11/02/18 which showed an EF of 60%, mild LVH, mild to moderate aortic stenosis with a mean aortic valve gradient of 23 mmHg and mild focal aortic valve calcification. RVSP was estimated to be approximately 40 mmHg. Patient was subsequently sent home, and returned with progressively worsening dyspnea on exertion and shortness of breath. He was admitted with hypoxia requiring supplemental O2 and finally BiPAP therapy as well as IV diuresis. Patient's condition normalized, and he has now doing rather well. He was found to be anemic, and his second hemoglobin was 7.7. Patient is currently receiving PRBC. He denies any bright red blood per rectum, or hematochezia. He denies any chest pain, angina, presyncope or syncope. Patient has been told he has a heart murmur but does know the specifics of which. I reviewed his echocardiogram which demonstrated moderate thickening of his aortic valve with a peak/mean gradient of 43 and 24 mmHg giving an estimated aortic valve area of 1.4 cm?. In addition the patient had an episode of paroxysmal atrial fibrillation while he was under stress, which has now normalized to normal sinus rhythm. His initial troponin was 0.07 and increased to 0.09. His creatinine is 2.0, creatinine clearance of under 30. [] Past Medical History Allergies/Adverse Reactions: Allergies No Known Allergies Allergy (Verified 12/01/18 16:49) Home Medications: Ambulatory Orders Medication Instructions Recorded Levothyroxine [Synthroid] 25 mcg PO DAILY 11/23/16 Pantoprazole Sodium [Protonix] 40 mg PO DAILY 11/23/16 Rifaximin [Xifaxan] 550 mg PO BID 11/23/16 Simvastatin [Zocor] 20 mg PO DAILY 11/23/16 Ferrous Sulfate 325 mg PO DAILY 10/05/17 Desoximetasone 0.25% [Topicort Crm 1 applic TOPICAL DAILY 04/04/18 0.25%] Albuterol IH (ProAir) [Proair Hfa] 1 puff INHALATION Q6H PRN PRN #1 11/04/18 inhaler Furosemide [Lasix] 80 mg PO QODAY 12/01/18 Insulin Glargine [Lantus SoloStar 25 units SC BID 12/01/18 Pen] Insulin Lispro [Humalog KwikPen] 12 unit SQ BREAKFAST 12/01/18 Insulin Lispro [Humalog KwikPen] 15 units SQ DINNER 12/01/18 Insulin Lispro [Humalog KwikPen] 24 units SQ LUNCH 12/01/18 Lactulose [Constulose] 30 ml PO BID 12/01/18 Multivit-Min/FA/Lycopen/Lutein 1 each PO DAILY 12/01/18 [Centrum Silver Men Tablet] Nadolol [Corgard] 40 mg PO DAILY 12/01/18 Psyllium Husk [Metamucil] 0.4 gm PO QHS 12/01/18 Spironolactone 100 mg PO DAILY 12/01/18 Past Medical History (Chronic Problems): Chronic Problems Morbid obesity (Chronic) Aortic stenosis (Chronic) Chronic anemia (Chronic) Type 2 diabetes mellitus (Chronic) Hyperlipidemia (Chronic) Liver cirrhosis (Chronic) Chronic kidney disease, stage III (moderate) (Chronic) CKD (chronic kidney disease) (Chronic) HTN (hypertension) (Chronic) Surgical History: - - prostate surgery, hernia surgery, circumcision Psychiatric History: No pertinent psych hx - *Family History Maternal History Items: Diabetes Paternal History Items: Cancer - Prostate Lives: Spouse/ Significant Other Smoking Status: Former smoker Tobacco Use: Non-smoker Alcohol: None Drugs: None Review of Systems - Review of Systems General: Denies: Fever, Night Sweats, Fatigue Cardiovascular: Reports: Shortness of Breath, Shortness of Breath at Rest, Shortness of Breath with Exertion, Peripheral Edema. Denies: Chest Discomfort, Orthopnea, PND, Palpitations, Lightheadedness, Dizziness, Near Syncope, Syncope Respiratory: Denies: Cough, Sputum Production, Hemoptysis Gastrointestinal: Denies: Hematemesis, Hematochezia, Melena Genitourinary: Denies: Dysuria, Hematuria Skin: Denies: Rash Subjectve: Patient laying in bed, no acute distress. Objective: Vital Signs Temp Pulse Resp BP Pulse Ox 99.3 F H 71 16 122/46 H 97 12/02/18 14:40 12/02/18 14:44 12/02/18 14:44 12/02/18 14:40 12/02/18 14:40 Oxygen Flow Rate (L/min) 2 Oxygen Delivery Method Nasal Cannula Weight: 270 lb 15.17 oz Body Mass Index (BMI) 41.4 Finger Stick Blood Glucose 132 Intake and Output for Last 24 Hours 11/30/18 12/01/18 12/02/18 23:59 23:59 23:59 Intake Total 1212 / 1212 410 / 410 Output Total 150 / 150 2200 / 2200 Balance 1062 / 1062 -1790 / -1790 General: Awake, Alert, Oriented x 3 HEENT: PERRL, EOMI, Sclera Non Icteric Neck: Supple, Good ROM, No Lymph Node Enlargement Lungs: Clear to auscultation Cardiovascular: Regular Rhythm, Normal S2, No Rubs, No Gallops Murmur Murmur: Grade 3/6, Crescendo-Decrescendo Vascular: No Carotid Bruits, Normal Femoral Pulses, Normal Radial Pulses, Normal Dorsalis Pedal Pulse, Normal Posterior Tibial Pulses Abdomen: Bowel Sounds Present, Soft, Non Tender, No HSM, No Organomegaly Extremities: No Cyanosis, No Clubbing, No edema Neurological: No Focal Motor or Sensory Deficit 12/01/18 17:05: WBC 10.5, RBC 2.52 L, Hgb 8.7 L, Hct 28.1 L, MCV 111.5 H, MCH 34.5 H, MCHC 31.0 L, RDW 18.1 H, RDW Differential 74.1 H, Plt Count 118 L, MPV 12.6 H, Immature Gran % (Auto) 2.200 H, Neut % (Auto) 60.9, Lymph % (Auto) 12.5 L, [place] % (Auto) 22.4 H, Eos % (Auto) 1.5, Baso % (Auto) 0.5, Absolute Neuts (auto) 6.4, Total Counted Not Reportable 12/01/18 17:05: Sodium 138, Potassium 4.5, Chloride 107, Carbon Dioxide 28.0, Anion Gap 3 L, BUN 40 H, Creatinine 1.77 H, Est GFR (MDRD) Af Amer 48 L, Est GFR (MDRD) Non-Af 40 L, BUN/Creatinine Ratio 22.6 H, Glucose 87, Calcium 8.5, Troponin I 0.071 H 12/01/18 17:05: Lactic Acid 0.8 12/01/18 17:05: B-Natriuretic Peptide 971.4 H 12/01/18 17:05: PT 17.5 H, INR 1.5 12/01/18 22:15: Magnesium 2.0, Troponin I 0.094 H 12/02/18 00:49: Troponin I 0.078 H 12/02/18 03:46: WBC 4.8, RBC 2.04 L, Hgb 7.1 L, Hct 23.2 L, MCV 113.7 H, MCH 34.8 H, MCHC 30.6 L, RDW 17.6 H, RDW Differential 69.7 H, Plt Count 68 L, MPV 11.6, Immature Gran % (Auto) 0.800, Neut % (Auto) 60.2, Lymph % (Auto) 17.3 L, [place] % (Auto) 19.8 H, Eos % (Auto) 1.7, Baso % (Auto) 0.2, Absolute Neuts (auto) 2.9, Total Counted Not Reportable 12/02/18 03:46: Sodium 141, Potassium 4.1, Chloride 107, Carbon Dioxide 26.0, Anion Gap 8, BUN 43 H, Creatinine 2.00 H, Est GFR (MDRD) Af Amer 42 L, Est GFR (MDRD) Non-Af 34 L, BUN/Creatinine Ratio 21.5 H, Glucose 150 H, Calcium 8.0 L, Total Bilirubin 0.90, Triglycerides 67, Cholesterol 90, LDL Cholesterol 41, VLDL Cholesterol 13, HDL Cholesterol 36 L 12/02/18 03:46: Troponin I 0.096 H Rhythm: EKG: ECHO: Stress Test: Cardiac Cath: PCI: CT Surgery: Holter monitor: EPS: PPM: CXR: Chest CT Scan: Assessment/Plan 1. Aortic stenosis: The patient has mild to moderate aortic stenosis with an estimated aortic valve area of 1.4 cm? and a peak/mean gradient of 43 and 24 mmHg. Visual inspection of the aortic valve does not appear to show that he requires correction at this time. Nonetheless the patient has presented with dyspnea, hypoxia, shortness of breath and evidence of lower extremity edema suggesting higher than measured pulmonary pressures based on echocardiogram. This is superimposed upon significant anemia requiring PRBC reperfusion. Recommend keeping the patient's hemoglobin above at least 8.0, and preferably 10.0 and attempt to optimize oxygen carrying capacity. The patient's peak and mean gradients will be affected by anemia, perhaps overestimating their severity. I would not recommend repeat echocardiogram at this time in the face of anemia. Once the patient's hemoglobin has been stabilized and he has no overt signs of bleeding, he may require a left and right heart catheterization to assess his coronary anatomy and pulmonary pressures more accurately. At this point it does not appear the patient requires aortic valve replacement. I would not recommend stress testing at this time given his anemia and aortic stenosis. 2. Chronic renal insufficiency: I would recommend judicious use of IV contrast dye to avoid acute on chronic renal failure. 3. Paroxysmal atrial fibrillation: The patient had paroxysmal atrial fibrillation superimposed on his acute respiratory distress. He is back to normal sinus rhythm. Given his anemia I would not recommend anticoagulation at this time. 4. Anemia: Recommend continuing PPI therapy and ongoing analysis for possible sources of bleeding. The patient's daughter suggests that he has had a previous EGD and potential polyps in his stomach although this needs to be verified. 5. Thank you very much for the opportunity to participate in the cardiac care of your patient. Consultation time took place between 330 and 4:10 PM. Code Visit Inpatient E&M: 03401 Init Hosp L2
[2018-12-02 16:16] LABS: Bedside Glucose 156 mg/dL (70-110)
[2018-12-02] MEDS: Insulin Lispro 100 UNIT/ML INSULN.PEN 15 UNIT SC (17:05)
[2018-12-02] MEDS: Atorvastatin Calcium 10 MG Tablet PO (21:26)
[2018-12-02] MEDS: Psyllium 1 PACKET PO (21:27)
[2018-12-02 22:16] LABS: Bedside Glucose 144 mg/dL (70-110)
[2018-12-03] VITALS (14 sets, daily range): BP systolic 108–146; BP diastolic 36–71; PULSE 62–75; RESP 16–18; TEMP 36.8–37.5; O2SAT 89–98
[2018-12-03] MEDS: Furosemide 100 MG/10 ML Vial 60 MG IV (05:30)
[2018-12-03] MEDS: 0.9% NaCl Peripheral Flush Adult/Peds IV ×2 (05:31→21:40)
[2018-12-03] MEDS: Levothyroxine 25 MCG TABLET PO (05:32)
[2018-12-03 06:32] LABS: Absolute Lymphocyte Count 1.15 X10^3/ul (0.83-4.51); Absolute Neutrophil Count 3.7 X10^3/uL (2.0-7.7); Basophil# 0.01 X10^3/uL; Basophil% 0.2 % (0-1); Eosinophil# 0.06 X10^3/uL; Hematocrit 28.1 % (40-54); Hemoglobin 8.7 g/dl (13.0-16.5); Lymphocyte # 1.15 X10^3/ul (4.0); Lymphocyte % 19.4 % (19-41); Mean Corpuscular Hgb 33.1 pg (27.0-32.0); Mean Corpuscular Volume 106.8 fL (80-94); Mean Platelet Vol. 12.6 fl (6.2-12.0); Monocyte# 0.91 X10^3/uL; Monocyte% 15.3 % (0-10); Neutrophil # 3.74 X10^3/uL (2.7-7.7); Neutrophil % 63.1 % (47-70); Platelet Count 76 K/mm3 (150-450); RBC Distribution Width CV 20.8 % (11.6-14.6); Red Blood Count 2.63 M/mm3 (4.6-6.2); White Blood Count 5.9 K/mm3 (4.4-11.0)
[2018-12-03 06:33] LABS: Differential Indicated SCAN CRITERIA MET; POSITIVE COUNT NO; POSITIVE DIFFERENTIAL NO; POSITIVE MORPHOLOGY YES
[2018-12-03 06:50] LABS: Anion Gap 8 (5-15); BUN 56 mg/dL (7-18); BUN/Creat Ratio 22.6 RATIO (10-20); Calcium,Total 8.1 mg/dL (8.5-10.1); Chloride 104 mmol/L (98-107); Creatinine, Serum 2.48 mg/dL (0.70-1.30); EST Glomerular Filtration Rate 27 mL/min (>60); Est Glom Filt Rate - Afr Amer 32 mL/min (>60); Estimated Creatinine Clearance 23.37 ml/min; Glucose 139 mg/dL (74-106); Sodium Level 141 mmol/L (136-145)
[2018-12-03 06:56] LABS: Bedside Glucose 142 mg/dL (70-110)
[2018-12-03 07:00] LABS: Differential Comment SCAN
[2018-12-03 07:01] LABS: Anisocytosis 1+; Macrocytosis 1+; Platelet Estimate MOD DEC (ADEQ); Platelet Morphology LARGE; Polychromasia 1+
[2018-12-03] MEDS: Ipratropium/Albuterol Sulfate 3 ML AMPUL.NEB INHALATION ×3 (07:26→15:39)
[2018-12-03] MEDS: Insulin Lispro 100 UNIT/ML INSULN.PEN 12 UNIT SC (08:16)
[2018-12-03] MEDS: Ferrous Sulfate 325 MG Tablet PO (08:16)
[2018-12-03] MEDS: Lactulose 20 GM/30 ML UDC PO ×2 (09:31→21:39)
[2018-12-03] MEDS: Pantoprazole Sodium 40 MG Tablet PO (09:32)
[2018-12-03] MEDS: rifAXIMin 550 MG Tablet PO ×2 (09:32→21:40)
[2018-12-03] MEDS: Clobetasol Propionate 0.05% Cream 1 APPLIC TOPICAL (09:33)
--- NOTE | 2018-12-03 09:57 | PCM.PN.HOSP ---
Patient Problems: Active and Suspected Problems Acute respiratory failure with hypoxia (Acute) CHF exacerbation (Acute) Subjective: Patient seen and examined. He had no complaints. Shortness of breath had improved. Review of systems otherwise negative. Labs and vitals reviewed. Creatinine has trended up to 2.48 from 1.77 on admission. Hemoglobin today is 8.7 after he received 2 units of blood. Platelets are 76 today. Urine output yesterday was 4 L and he was negative balance by 2 L. He is put out 1 L of urine so far today. His weight has gone down from 272 pounds on admission to 66 pounds. Vitals/I&O's: Vital Signs Temp Pulse Resp BP Pulse Ox 98.2 F 63 18 119/40 L 97 12/03/18 09:30 12/03/18 09:30 12/03/18 09:30 12/03/18 09:30 12/03/18 09:30 Oxygen Flow Rate (L/min) 1 Oxygen Delivery Method Nasal Cannula Weight: 266 lb 8.622 oz Body Mass Index (BMI) 41.4 Finger Stick Blood Glucose 132 Intake and Output for Last 24 Hours 12/01/18 12/02/18 12/03/18 23:59 23:59 23:59 Intake Total 1212 / 1212 2021 Output Total 150 / 150 4050 / 4050 1025 / 1025 Balance 1062 / 1062 -2027 / -2027 -1025 / -1025 General: Alert, Oriented x3, Cooperative, Lethargic HEENT: Atraumatic, PERRLA, EOMI, Normocephalic Oral: Dry Mucosa Neck: Supple, No JVD, Negative Carotid Bruits Lungs: - - decreased breath sounds bibasally, with mild crackles bibasally, no wheezing. on 1L of oxygen at time of review Cardiovascular: Regular rate, Regular Rhythm, Normal S1, Normal S2, No murmurs Abdomen: Bowel Sounds Present, Soft, Non Tender, Non-Distended Extremities: No clubbing, No cyanosis, - - 1+ bipedal pitting edema of LEs and UEs. Skin: No rashes, No breakdown Musculoskeletal: No Tenderness to Palpation of Joints or Extremities Lymphatic: No Cervical, Supraclavicular, or Inguinal Adenopathy Neurological: Cranial nerves II-XII grossly intact, Neuro grossly intact, Motor Exam 5/5 strength throughout Psych/Mental Status: Normal Affect, Appropriate, Alert and oriented to time, place, person, mood and affect Laboratory Results 12/01/18 17:05: Diff Path Review Reviewed 12/02/18 09:15: Blood Type A POSITIVE, Antibody Screen NEGATIVE, Crossmatch See Detail 12/02/18 09:15: Crossmatch See Detail 12/02/18 11:35: POC Glucose 189 H 12/02/18 16:09: POC Glucose 156 H 12/02/18 21:23: POC Glucose 144 H 12/03/18 05:45: WBC 5.9, RBC 2.63 L, Hgb 8.7 L, Hct 28.1 L, MCV 106.8 H, MCH 33.1 H, MCHC 31.0 L, RDW 20.8 H, RDW Differential 78.0 H, Plt Count 76 L, MPV 12.6 H, Immature Gran % (Auto) 1.000 H, Neut % (Auto) 63.1, Lymph % (Auto) 19.4, [place] % (Auto) 15.3 H, Eos % (Auto) 1.0, Baso % (Auto) 0.2, Absolute Neuts (auto) 3.7, Absolute Lymphs (auto) 1.15, Total Counted Not Reportable, Differential Comment SCAN, Platelet Estimate MOD DEC, Plt Morphology Comment LARGE, Polychromasia 1+, Anisocytosis 1+, Macrocytosis 1+ 12/03/18 05:45: Sodium 141, Potassium 4.0, Chloride 104, Carbon Dioxide 29.0, Anion Gap 8, BUN 56 H, Creatinine 2.48 H, Estim Creat Clear Calc 23.37, Est GFR (MDRD) Af Amer 32 L, Est GFR (MDRD) Non-Af 27 L, BUN/Creatinine Ratio 22.6 H, Glucose 139 H, Calcium 8.1 L 12/03/18 06:45: POC Glucose 142 H Current Medications Acetaminophen (Tylenol) 650 mg PO Q6H PRN PRN PRN Reason: Non-cardiac pain (mod-severe) Hydrocodone Bitart/Acetaminophen ([place] 5mg-325mg) 1 - 2 tablet PO Q6H PRN PRN PRN Reason: MOD-SEVERE PAIN (-06/03) Al Hydroxide/Mg Hydroxide (Mylanta Ii) 15 - 30 ml PO Q4H PRN PRN PRN Reason: INDIGESTION Albuterol Sulfate (Ventolin Aerosols) 2.5 mg INHALATION Q2H PRN PRN PRN Reason: dyspnea, wheezing Last Admin: 12/02/18 04:50 Dose: 2.5 mg Albuterol/Ipratropium (Duoneb) 3 ml INHALATION Q4HWA.RT [facility] Last Admin: 12/03/18 07:26 Dose: 3 ml Atorvastatin Calcium (Lipitor) 10 mg PO DAILY@2200 [facility] Last Admin: 12/02/18 21:26 Dose: 10 mg Clobetasol Propionate (Temovate Cream (Bkc)) 1 applic TOPICAL DAILY [facility]; Protocol Last Admin: 12/03/18 09:33 Dose: 1 applic Ferrous Sulfate (Ferrous Sulfate) 325 mg PO DAILYCM [facility] Last Admin: 12/03/18 08:16 Dose: 325 mg Furosemide (Lasix) 60 mg IV Q8 [facility] Last Admin: 12/03/18 05:30 Dose: 60 mg Hydralazine HCl (Apresoline Iv) 10 mg IV Q4H PRN PRN PRN Reason: SBP > 160 Insulin Glargine (Lantus (Bkc)) 25 units SC BID [facility] Last Admin: 12/03/18 09:33 Dose: 25 u Insulin Human Lispro (Humalog Kwikpen (Bkc)) 12 unit SC BREAKFAST [facility] Last Admin: 12/03/18 08:16 Dose: 12 units Insulin Human Lispro (Humalog Kwikpen (Bkc)) 15 unit SC DINNER [facility] Last Admin: 12/02/18 17:05 Dose: 15 units Insulin Human Lispro (Humalog Kwikpen (Bkc)) 24 unit SC LUNCH [facility] Last Admin: 12/02/18 12:12 Dose: 24 units Lactulose (Chronulac, Cephulac) 20 gm PO BID [facility] Last Admin: 12/03/18 09:31 Dose: 20 gm Levothyroxine Sodium (Synthroid) 25 mcg PO DAILY@0600 [facility] Last Admin: 12/03/18 05:32 Dose: 25 mcg Magnesium Hydroxide (Milk Of Magnesia) 30 ml PO DAILY PRN PRN Reason: Constipation Morphine Sulfate () 1 - 2 mg IV Q4H PRN PRN PRN Reason: PAIN Nadolol (Corgard) 40 mg PO DAILY [facility] Last Admin: 12/02/18 08:43 Dose: 40 mg Nitroglycerin (Nitrostat) 0.4 mg SUBLINGUAL Q5M PRN PRN Reason: CARDIAC/CHEST PAIN Ondansetron HCl (Zofran) 4 mg IV Q8H PRN PRN PRN Reason: NAUSEA/VOMITING Pantoprazole Sodium (Protonix) 40 mg PO DAILY [facility] Last Admin: 12/03/18 09:32 Dose: 40 mg Psyllium Hydrophilic Mucilloid (Metamucil) 1 packet PO QHS [facility] Last Admin: 12/02/18 21:27 Dose: 1 packet Rifaximin (Xifaxan) 550 mg PO BID [facility] Last Admin: 12/03/18 09:32 Dose: 550 mg Sodium Chloride () 5 - 15 ml IV UD PRN PRN Reason: SALINE FLUSH Last Admin: 12/03/18 05:31 Dose: 10 ml Spironolactone (Aldactone) 100 mg PO DAILY [facility] Last Admin: 12/02/18 08:43 Dose: 100 mg Medical Necessity - Tobacco Use Smoking Status: Former smoker Tobacco Use: Non-smoker Assessment/Plan All Active Problems Acute respiratory failure with hypoxia (Acute) CHF exacerbation (Acute) Pleural effusion (Acute) Acute chest pain (Acute) Hypoxemia (Acute) Dyspnea (Acute) Hyperglycemia (Acute) 1. Acute hypoxic respiratory failure due to [id number] diastolic heart failure BNP was 971 on IV lasix 40mg bid uses BIPAP qhs put out 4L of urine over last 24 hours. in cumulative negative balance by 1.9L since admission fluid restriction to 1500cc daily Echo (11/10): EF of 60% with mild concentric left ventricular hypertrophy and normal left ventricular systolic function. No regional wall motion abnormalities noted. On beta-thais and spironolactone. TSH was within normal limits. 2. Elevated troponins: Troponin was 0.076 admission and peaked at 0.096. EKG did not show any acute ST changes. cardiology on boardl for cardiac cath tomorrow on aspirin and statin. 3. Acute on chronic diastolic heart failure exacerbation as under 1. 4. Anemia s/p 2 units of PRBC Hb today is 8.7, from 7.1 yesterday. is a macrocytic anemia fecal occult blood pending will check iron panel 5. ? New onset Afib: EKG in ED showed questionable Afib with RVR. Has been in sinus rhythm since. Was given one dose of therapeutic lovenox. TSH and electrolytes were WNL cardiology on board 6. Cirrhosis due to nonalcoholic steatohepatitis:on lactulose, spironolactone, nadolol and Xifaxan. 7. Hypertension: On spironolactone and nadolol. 8. Chronic thrombocytopenia: platelets are 76 today. Is chronic, and is due to liver disease. 9. CKD stage III: Creatinine is up to 2.48 today. Was 1.77 on admission. Will consult nephrology o/a of rise in Cr, and it will likely worsen o/a of him having cardiac cath tomorrow. 10. Hypothyroidism: On Synthroid. 11. Type 2 diabetes mellitus: On insulin. Actos AC at bedtime. Insulin sliding scale. 12. COPD: Breathing treatments. Titrate oxygen to maintain above 90%. 13. GERD: On PPI. 14. Morbid obesity: Complicates care and management as well as expected recovery. DVT prophylaxis; SCDs, no anticoagulation o.a of thrombocytopenia and anemia Code status: full code Code Visit Inpatient E&M: 51227 Subs Hosp L3
[2018-12-03] MEDS: Spironolactone 50 MG Tablet 100 MG PO (10:03)
--- NOTE | 2018-12-03 10:06 | PN_ITS ---
Patient Problems: Active and Suspected Problems Acute respiratory failure with hypoxia (Acute) CHF exacerbation (Acute) Subjective: Patient seen and examined. He had no complaints. Shortness of breath had improved. Review of systems otherwise negative. Labs and vitals reviewed. Creatinine has trended up to 2.48 from 1.77 on admission. Hemoglobin today is 8.7 after he received 2 units of blood. Platelets are 76 today. Urine output yesterday was 4 L and he was negative balance by 2 L. He is put out 1 L of urine so far today. His weight has gone down from 272 pounds on admission to 66 pounds. Vitals/I&O's: Vital Signs Temp Pulse Resp BP Pulse Ox 98.2 F 63 18 119/40 L 97 12/03/18 09:30 12/03/18 09:30 12/03/18 09:30 12/03/18 09:30 12/03/18 09:30 Oxygen Flow Rate (L/min) 1 Oxygen Delivery Method Nasal Cannula Weight: 266 lb 8.622 oz Body Mass Index (BMI) 41.4 Finger Stick Blood Glucose 132 Intake and Output for Last 24 Hours 12/01/18 12/02/18 12/03/18 23:59 23:59 23:59 Intake Total 1212 / 1212 2021 Output Total 150 / 150 4050 / 4050 1025 / 1025 Balance 1062 / 1062 -2027 / -2027 -1025 / -1025 General: Alert, Oriented x3, Cooperative, Lethargic HEENT: Atraumatic, PERRLA, EOMI, Normocephalic Oral: Dry Mucosa Neck: Supple, No JVD, Negative Carotid Bruits Lungs: - - decreased breath sounds bibasally, with mild crackles bibasally, no wheezing. on 1L of oxygen at time of review Cardiovascular: Regular rate, Regular Rhythm, Normal S1, Normal S2, No murmurs Abdomen: Bowel Sounds Present, Soft, Non Tender, Non-Distended Extremities: No clubbing, No cyanosis, - - 1+ bipedal pitting edema of LEs and UEs. Skin: No rashes, No breakdown Musculoskeletal: No Tenderness to Palpation of Joints or Extremities Lymphatic: No Cervical, Supraclavicular, or Inguinal Adenopathy Neurological: Cranial nerves II-XII grossly intact, Neuro grossly intact, Motor Exam 5/5 strength throughout Psych/Mental Status: Normal Affect, Appropriate, Alert and oriented to time, place, person, mood and affect Laboratory Results 12/01/18 17:05: Diff Path Review Reviewed 12/02/18 09:15: Blood Type A POSITIVE, Antibody Screen NEGATIVE, Crossmatch See Detail 12/02/18 09:15: Crossmatch See Detail 12/02/18 11:35: POC Glucose 189 H 12/02/18 16:09: POC Glucose 156 H 12/02/18 21:23: POC Glucose 144 H 12/03/18 05:45: WBC 5.9, RBC 2.63 L, Hgb 8.7 L, Hct 28.1 L, MCV 106.8 H, MCH 33.1 H, MCHC 31.0 L, RDW 20.8 H, RDW Differential 78.0 H, Plt Count 76 L, MPV 12.6 H, Immature Gran % (Auto) 1.000 H, Neut % (Auto) 63.1, Lymph % (Auto) 19.4, [place] % (Auto) 15.3 H, Eos % (Auto) 1.0, Baso % (Auto) 0.2, Absolute Neuts (auto) 3.7, Absolute Lymphs (auto) 1.15, Total Counted Not Reportable, Differential Comment SCAN, Platelet Estimate MOD DEC, Plt Morphology Comment LARGE, Polychromasia 1+, Anisocytosis 1+, Macrocytosis 1+ 12/03/18 05:45: Sodium 141, Potassium 4.0, Chloride 104, Carbon Dioxide 29.0, Anion Gap 8, BUN 56 H, Creatinine 2.48 H, Estim Creat Clear Calc 23.37, Est GFR (MDRD) Af Amer 32 L, Est GFR (MDRD) Non-Af 27 L, BUN/Creatinine Ratio 22.6 H, Glucose 139 H, Calcium 8.1 L 12/03/18 06:45: POC Glucose 142 H Current Medications Acetaminophen (Tylenol) 650 mg PO Q6H PRN PRN PRN Reason: Non-cardiac pain (mod-severe) Hydrocodone Bitart/Acetaminophen ([place] 5mg-325mg) 1 - 2 tablet PO Q6H PRN PRN PRN Reason: MOD-SEVERE PAIN (-06/03) Al Hydroxide/Mg Hydroxide (Mylanta Ii) 15 - 30 ml PO Q4H PRN PRN PRN Reason: INDIGESTION Albuterol Sulfate (Ventolin Aerosols) 2.5 mg INHALATION Q2H PRN PRN PRN Reason: dyspnea, wheezing Last Admin: 12/02/18 04:50 Dose: 2.5 mg Albuterol/Ipratropium (Duoneb) 3 ml INHALATION Q4HWA.RT [facility] Last Admin: 12/03/18 07:26 Dose: 3 ml Atorvastatin Calcium (Lipitor) 10 mg PO DAILY@2200 [facility] Last Admin: 12/02/18 21:26 Dose: 10 mg Clobetasol Propionate (Temovate Cream (Bkc)) 1 applic TOPICAL DAILY [facility]; Protocol Last Admin: 12/03/18 09:33 Dose: 1 applic Ferrous Sulfate (Ferrous Sulfate) 325 mg PO DAILYCM [facility] Last Admin: 12/03/18 08:16 Dose: 325 mg Furosemide (Lasix) 60 mg IV Q8 [facility] Last Admin: 12/03/18 05:30 Dose: 60 mg Hydralazine HCl (Apresoline Iv) 10 mg IV Q4H PRN PRN PRN Reason: SBP > 160 Insulin Glargine (Lantus (Bkc)) 25 units SC BID [facility] Last Admin: 12/03/18 09:33 Dose: 25 u Insulin Human Lispro (Humalog Kwikpen (Bkc)) 12 unit SC BREAKFAST [facility] Last Admin: 12/03/18 08:16 Dose: 12 units Insulin Human Lispro (Humalog Kwikpen (Bkc)) 15 unit SC DINNER [facility] Last Admin: 12/02/18 17:05 Dose: 15 units Insulin Human Lispro (Humalog Kwikpen (Bkc)) 24 unit SC LUNCH [facility] Last Admin: 12/02/18 12:12 Dose: 24 units Lactulose (Chronulac, Cephulac) 20 gm PO BID [facility] Last Admin: 12/03/18 09:31 Dose: 20 gm Levothyroxine Sodium (Synthroid) 25 mcg PO DAILY@0600 [facility] Last Admin: 12/03/18 05:32 Dose: 25 mcg Magnesium Hydroxide (Milk Of Magnesia) 30 ml PO DAILY PRN PRN Reason: Constipation Morphine Sulfate () 1 - 2 mg IV Q4H PRN PRN PRN Reason: PAIN Nadolol (Corgard) 40 mg PO DAILY [facility] Last Admin: 12/02/18 08:43 Dose: 40 mg Nitroglycerin (Nitrostat) 0.4 mg SUBLINGUAL Q5M PRN PRN Reason: CARDIAC/CHEST PAIN Ondansetron HCl (Zofran) 4 mg IV Q8H PRN PRN PRN Reason: NAUSEA/VOMITING Pantoprazole Sodium (Protonix) 40 mg PO DAILY [facility] Last Admin: 12/03/18 09:32 Dose: 40 mg Psyllium Hydrophilic Mucilloid (Metamucil) 1 packet PO QHS [facility] Last Admin: 12/02/18 21:27 Dose: 1 packet Rifaximin (Xifaxan) 550 mg PO BID [facility] Last Admin: 12/03/18 09:32 Dose: 550 mg Sodium Chloride () 5 - 15 ml IV UD PRN PRN Reason: SALINE FLUSH Last Admin: 12/03/18 05:31 Dose: 10 ml Spironolactone (Aldactone) 100 mg PO DAILY [facility] Last Admin: 12/02/18 08:43 Dose: 100 mg Medical Necessity - Tobacco Use Smoking Status: Former smoker Tobacco Use: Non-smoker Assessment/Plan All Active Problems Acute respiratory failure with hypoxia (Acute) CHF exacerbation (Acute) Pleural effusion (Acute) Acute chest pain (Acute) Hypoxemia (Acute) Dyspnea (Acute) Hyperglycemia (Acute) 1. Acute hypoxic respiratory failure due to [id number] diastolic heart failure * BNP was 971 * on IV lasix 40mg bid * uses BIPAP qhs * put out 4L of urine over last 24 hours. in cumulative negative balance by 1.9L since admission * fluid restriction to 1500cc daily * Echo (11/10): EF of 60% with mild concentric left ventricular hypertrophy and normal left ventricular systolic function. No regional wall motion abnormalities noted. * On beta-thais and spironolactone. * TSH was within normal limits. * 2. Elevated troponins: * Troponin was 0.076 admission and peaked at 0.096. * EKG did not show any acute ST changes. * cardiology on boardl for cardiac cath tomorrow * on aspirin and statin. * 3. Acute on chronic diastolic heart failure exacerbation * as under 1. * 4. Anemia s/p 2 units of PRBC * Hb today is 8.7, from 7.1 yesterday. * is a macrocytic anemia * fecal occult blood pending * will check iron panel * 5. ? New onset Afib: * EKG in ED showed questionable Afib with RVR. * Has been in sinus rhythm since. Was given one dose of therapeutic lovenox. * TSH and electrolytes were WNL * cardiology on board * 6. Cirrhosis due to nonalcoholic steatohepatitis:on lactulose, spironolactone, nadolol and Xifaxan. 7. Hypertension: On spironolactone and nadolol. 8. Chronic thrombocytopenia: platelets are 76 today. Is chronic, and is due to liver disease. 9. CKD stage III: * Creatinine is up to 2.48 today. * Was 1.77 on admission. * Will consult nephrology o/a of rise in Cr, and it will likely worsen o/a of him having cardiac cath tomorrow. 10. Hypothyroidism: On Synthroid. 11. Type 2 diabetes mellitus: On insulin. Actos AC at bedtime. Insulin sliding scale. 12. COPD: Breathing treatments. Titrate oxygen to maintain above 90%. 13. GERD: On PPI. 14. Morbid obesity: Complicates care and management as well as expected recovery. DVT prophylaxis; SCDs, no anticoagulation o.a of thrombocytopenia and anemia Code status: full code Code Visit Inpatient E&M: 75803 Subs Hosp L3
[2018-12-03 10:39] LABS: Ferritin 66 ng/mL (26-388); Iron 81 ug/dL (65-175); Iron Binding Capacity,Total 267 ug/dL (250-450); PERCENT IRON SATURATION 30.3 % (15.0-55.0)
--- NOTE | 2018-12-03 11:15 | PN.CARD_ITS ---
Subjectve: Patient feels improved after 2 units of PRBCs yesterday. Shortness of breath much improved. No chest pain or angina. Telemetry shows normal sinus rhythm, no PVCs. Creatinine is slightly worse this morning. Objective: Vital Signs Temp Pulse Resp BP Pulse Ox 98.2 F 63 18 119/40 L 97 12/03/18 09:30 12/03/18 09:30 12/03/18 09:30 12/03/18 09:30 12/03/18 09:30 Oxygen Flow Rate (L/min) 1 Oxygen Delivery Method Nasal Cannula Weight: 266 lb 8.622 oz Body Mass Index (BMI) 41.4 Finger Stick Blood Glucose 132 Intake and Output for Last 24 Hours 12/01/18 12/02/18 12/03/18 23:59 23:59 23:59 Intake Total 1212 / 1212 2021 Output Total 150 / 150 4050 / 4050 1025 / 1025 Balance 1062 / 1062 -2027 / -1025 / -1025 General: Awake, Alert, Oriented x 3 HEENT: PERRL, EOMI, Sclera Non Icteric Neck: Supple, Good ROM, No Lymph Node Enlargement Lungs: Clear to auscultation Cardiovascular: Regular Rhythm, Normal S2, No Rubs, No Gallops Murmur Murmur: Grade 3/6, Crescendo-Decrescendo Vascular: No Carotid Bruits, Normal Femoral Pulses, Normal Radial Pulses, Normal Dorsalis Pedal Pulse, Normal Posterior Tibial Pulses Abdomen: Bowel Sounds Present, Soft, Non Tender, No HSM, No Organomegaly Extremities: No Cyanosis, No Clubbing, No edema Neurological: No Focal Motor or Sensory Deficit 12/03/18 05:45: WBC 5.9, RBC 2.63 L, Hgb 8.7 L, Hct 28.1 L, MCV 106.8 H, MCH 33.1 H, MCHC 31.0 L, RDW 20.8 H, RDW Differential 78.0 H, Plt Count 76 L, MPV 12.6 H, Immature Gran % (Auto) 1.000 H, Neut % (Auto) 63.1, Lymph % (Auto) 19.4, [place] % (Auto) 15.3 H, Eos % (Auto) 1.0, Baso % (Auto) 0.2, Absolute Neuts (auto) 3.7, Total Counted Not Reportable 12/03/18 05:45: Sodium 141, Potassium 4.0, Chloride 104, Carbon Dioxide 29.0, Anion Gap 8, BUN 56 H, Creatinine 2.48 H, Est GFR (MDRD) Af Amer 32 L, Est GFR (MDRD) Non-Af 27 L, BUN/Creatinine Ratio 22.6 H, Glucose 139 H, Calcium 8.1 L 12/03/18 05:45: Iron 81, TIBC 267, Iron Saturation 30.3, Ferritin 66 Rhythm: EKG: ECHO: Stress Test: Cardiac Cath: PCI: CT Surgery: Holter monitor: EPS: PPM: CXR: Chest CT Scan: Medical Necessity - Tobacco Use Smoking Status: Former smoker Tobacco Use: Non-smoker Assessment/Plan 1. Aortic stenosis: The patient has mild to moderate aortic stenosis with an estimated aortic valve area of 1.4 cm? and a peak/mean gradient of 43 and 24 mmHg. Visual inspection of the aortic valve by myself on the echocardiogram does not appear to show that he requires correction at this time. Nonetheless the patient has presented with dyspnea, hypoxia, shortness of breath and evidence of lower extremity edema suggesting higher than measured pulmonary pressures based on echocardiogram. This is superimposed upon significant anemia requiring PRBC reperfusion. Recommend keeping the patient's hemoglobin above at least 8.0, and preferably 10.0 and attempt to optimize oxygen carrying capacity. The patient's peak and mean gradients will be affected by anemia, perhaps overestimating their severity. I would not recommend repeat echocardiogram at this time in the face of anemia. Now that the patient's hemoglobin has been stabilized and he has no overt signs of bleeding, he may proceed with a left and right heart catheterization to assess his coronary anatomy and pulmonary pressures more accurately. We will hold off on doing an LV gram in order to preserve contrast dye and protect his acute on chronic renal insufficiency. At this point it does not appear the patient requires aortic valve replacement. I would not recommend stress testing at this time given his anemia and aortic stenosis. It appears to require spironolactone in order to improve his hepatic cirrhosis. He appears to be tolerating it well despite his chronic renal insufficiency. If the patient requires any intervention, we will hold off tomorrow morning to ensure that he has no bleeding issues that would disqualify him from dual antiplatelet therapy. 2. Chronic renal insufficiency: I would recommend judicious use of IV contrast dye to avoid acute on chronic renal failure. In addition we will discontinue his IV Lasix given his increasing creatinine, and switch him to Lasix p.o. 80 mg twice daily. Continue spironolactone unless or until the patient becomes hyponatremic or creatinine worsens. This appears to be in place for his ange nair.. 3. Paroxysmal atrial fibrillation: The patient had paroxysmal atrial fibrillation superimposed on his acute respiratory distress. He is back to normal sinus rhythm. Given his anemia I would not recommend anticoagulation at this time. Would not recommend amiodarone given his cirrhosis. 4. Anemia: Recommend continuing PPI therapy and ongoing analysis for possible sources of bleeding. The patient's daughter suggests that he has had a previous EGD and potential polyps in his stomach although this needs to be verified. 5. Thank you very much for the opportunity to participate in the cardiac care of your patient. Left and right heart catheterization to follow tomorrow morning. Code Visit Inpatient E&M: 42251 Subs Hosp L2
[2018-12-03 11:16] LABS: Bedside Glucose 194 mg/dL (70-110)
[2018-12-03] MEDS: Insulin Lispro 100 UNIT/ML INSULN.PEN 24 UNIT SC (11:58)
--- NOTE | 2018-12-03 12:09 | PCM.CONS.R ---
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 The patient was admitted recently on for CHF following outpt blood transfusion. Creatinine improved to 1.85 on 11/04 which is his baseline. Creatinine progressed to 2.48 today on iv lasix therapy for CHF, fluid overload. He denies any bright red blood per rectum, or hematochezia,melena. He denied abdominal pain, nausea, or vomiting. Cardiology consulted for mildly elevated troponin levels. He is scheduled for heart cath tomorrow. Ammonia level is elevated at 50. Hgb 7.1 improved to 8.7g following 2 units prbc. He complains of weakness, denied falling at home. - Allergies Allergies: Allergies No Known Allergies Allergy (Verified 12/01/18 16:49) - Current Medications Current Medications: Current Medications Acetaminophen (Tylenol) 650 mg PO Q6H PRN PRN PRN Reason: Non-cardiac pain (mod-severe) Hydrocodone Bitart/Acetaminophen ([place] 5mg-325mg) 1 - 2 tablet PO Q6H PRN PRN PRN Reason: MOD-SEVERE PAIN (4-10/10) Al Hydroxide/Mg Hydroxide (Mylanta Ii) 15 - 30 ml PO Q4H PRN PRN PRN Reason: INDIGESTION Albuterol Sulfate (Ventolin Aerosols) 2.5 mg INHALATION Q2H PRN PRN PRN Reason: dyspnea, wheezing Last Admin: 12/02/18 04:50 Dose: 2.5 mg Albuterol/Ipratropium (Duoneb) 3 ml INHALATION Q4HWA.RT REJI Last Admin: 12/03/18 10:35 Dose: 3 ml Atorvastatin Calcium (Lipitor) 10 mg PO DAILY@2200 REJI Last Admin: 12/02/18 21:26 Dose: 10 mg Clobetasol Propionate (Temovate Cream (Bkc)) 1 applic TOPICAL DAILY [facility]; Protocol Last Admin: 12/03/18 09:33 Dose: 1 applic Diphenhydramine HCl (Benadryl) 50 mg PO X1 ONE Stop: 12/04/18 07:01 Ferrous Sulfate (Ferrous Sulfate) 325 mg PO DAILYCM [facility] Last Admin: 12/03/18 08:16 Dose: 325 mg Hydralazine HCl (Apresoline Iv) 10 mg IV Q4H PRN PRN PRN Reason: SBP > 160 Sodium Chloride () 1,000 mls @ 15 mls/hr IV .Q48H [facility] Insulin Glargine (Lantus (Bkc)) 25 units SC BID [facility] Last Admin: 12/03/18 09:33 Dose: 25 u Insulin Human Lispro (Humalog Kwikpen (Bkc)) 12 unit SC BREAKFAST [facility] Last Admin: 12/03/18 08:16 Dose: 12 units Insulin Human Lispro (Humalog Kwikpen (Bkc)) 15 unit SC DINNER [facility] Last Admin: 12/02/18 17:05 Dose: 15 units Insulin Human Lispro (Humalog Kwikpen (Bkc)) 24 unit SC LUNCH [facility] Last Admin: 12/03/18 11:58 Dose: 24 units Lactulose (Chronulac, Cephulac) 20 gm PO BID [facility] Last Admin: 12/03/18 09:31 Dose: 20 gm Levothyroxine Sodium (Synthroid) 25 mcg PO DAILY@0600 [facility] Last Admin: 12/03/18 05:32 Dose: 25 mcg Magnesium Hydroxide (Milk Of Magnesia) 30 ml PO DAILY PRN PRN Reason: Constipation Morphine Sulfate () 1 - 2 mg IV Q4H PRN PRN PRN Reason: PAIN Nadolol (Corgard) 40 mg PO DAILY [facility] Last Admin: 12/02/18 08:43 Dose: 40 mg Nitroglycerin (Nitrostat) 0.4 mg SUBLINGUAL Q5M PRN PRN Reason: CARDIAC/CHEST PAIN Ondansetron HCl (Zofran) 4 mg IV Q8H PRN PRN PRN Reason: NAUSEA/VOMITING Pantoprazole Sodium (Protonix) 40 mg PO DAILY [facility] Last Admin: 12/03/18 09:32 Dose: 40 mg Psyllium Hydrophilic Mucilloid (Metamucil) 1 packet PO QHS [facility] Last Admin: 12/02/18 21:27 Dose: 1 packet Rifaximin (Xifaxan) 550 mg PO BID [facility] Last Admin: 12/03/18 09:32 Dose: 550 mg Sodium Chloride () 5 - 15 ml IV UD PRN PRN Reason: SALINE FLUSH Last Admin: 12/03/18 05:31 Dose: 10 ml Spironolactone (Aldactone) 100 mg PO DAILY [facility] Last Admin: 12/03/18 10:03 Dose: 100 mg - Past Medical History Past Medical History (Chronic Problems): Chronic Problems Morbid obesity (Chronic) Aortic stenosis (Chronic) Chronic anemia (Chronic) Type 2 diabetes mellitus (Chronic) Hyperlipidemia (Chronic) Liver cirrhosis (Chronic) Chronic kidney disease, stage III (moderate) (Chronic) CKD (chronic kidney disease) (Chronic) HTN (hypertension) (Chronic) - Past Surgical History Surgical History: - - prostate surgery, hernia surgery, circumcision - Social History Smoking Status: Former smoker Alcohol: None Drugs: None - Family History Maternal History Items: Diabetes Paternal History Items: Cancer - Prostate Review of Systems Constitutional: Reports: Anorexia, Weakness. Denies: Chills, Fever Eyes: Denies: Vision Change HEENT: Denies: Head Aches Cardiovascular: Reports: Chest Pain, Edema. Denies: Syncope Gastrointestinal: Denies: Abdominal Pain, Diarrhea, Hematemesis, Hematochezia, Nausea, Vomiting Genitourinary: Reports: Frequency. Denies: Dysuria Musculoskeletal: Reports: - - swelling Skin: Denies: Rash Neurological: Reports: Balance problems, - - generalized weakness. Denies: Tremor, Seizures Patient Problems: Active and Suspected Problems Acute respiratory failure with hypoxia (Acute) CHF exacerbation (Acute) - Physical Exam General: Alert, Oriented x3, - - poor historian, chart reviewed. HEENT: Atraumatic Neck: Supple Lungs: Rales Cardiovascular: Regular rate, Murmur Abdomen: Bowel Sounds Present, Soft, Distended, Obese, Tender - RLQ Extremities: Edema Skin: No rashes Neurological: - - generalized weakness Psych/Mental Status: Depressed Vital Signs Temp Pulse Resp BP Pulse Ox 98.2 F 67 18 119/40 L 96 12/03/18 09:30 12/03/18 10:35 12/03/18 10:35 12/03/18 09:30 12/03/18 10:35 Oxygen Flow Rate (L/min) 1 Oxygen Delivery Method Nasal Cannula Weight: 120.9 kg Body Mass Index (BMI) 41.4 Finger Stick Blood Glucose 132 Intake and Output for Last 24 Hours 12/01/18 12/02/18 12/03/18 23:59 23:59 23:59 Intake Total 1212 / 1212 2021 590 / 590 Output Total 150 / 150 4050 / 4050 2525 / 2525 Balance 1062 / 1062 -2027 / -1934 / -1934 Laboratory Tests Past 24 Hrs 12/01/18 12/02/18 12/02/18 17:05 09:15 09:15 WBC RBC Hgb Hct MCV MCH MCHC RDW RDW Differential Plt Count MPV Immature Gran % (Auto) Neut % (Auto) Lymph % (Auto) [place] % (Auto) Eos % (Auto) Baso % (Auto) Absolute Neuts (auto) Absolute Lymphs (auto) Total Counted Differential Comment Diff Path Review Reviewed Platelet Estimate Plt Morphology Comment Polychromasia Anisocytosis Macrocytosis Sodium Potassium Chloride Carbon Dioxide Anion Gap BUN Creatinine Estim Creat Clear Calc Est GFR (MDRD) Af Amer Est GFR (MDRD) Non-Af BUN/Creatinine Ratio Glucose Calcium Iron TIBC Iron Saturation Ferritin Blood Type A POSITIVE Antibody Screen NEGATIVE Crossmatch See Detail See Detail 12/03/18 12/03/18 12/03/18 05:45 05:45 05:45 WBC 5.9 RBC 2.63 L Hgb 8.7 L Hct 28.1 L MCV 106.8 H MCH 33.1 H MCHC 31.0 L RDW 20.8 H RDW Differential 78.0 H Plt Count 76 L MPV 12.6 H Immature Gran % (Auto) 1.000 H Neut % (Auto) 63.1 Lymph % (Auto) 19.4 [place] % (Auto) 15.3 H Eos % (Auto) 1.0 Baso % (Auto) 0.2 Absolute Neuts (auto) 3.7 Absolute Lymphs (auto) 1.15 Total Counted Not Reportable Differential Comment SCAN Diff Path Review Platelet Estimate MOD DEC Plt Morphology Comment LARGE Polychromasia 1+ Anisocytosis 1+ Macrocytosis 1+ Sodium 141 Potassium 4.0 Chloride 104 Carbon Dioxide 29.0 Anion Gap 8 BUN 56 H Creatinine 2.48 H Estim Creat Clear Calc 23.37 Est GFR (MDRD) Af Amer 32 L Est GFR (MDRD) Non-Af 27 L BUN/Creatinine Ratio 22.6 H Glucose 139 H Calcium 8.1 L Iron 81 TIBC 267 Iron Saturation 30.3 Ferritin 66 Blood Type Antibody Screen Crossmatch POC Glucose 12/03/18 12/03/18 12/02/18 11:05 06:45 21:23 POC Glucose 194 H 142 H 144 H 12/02/18 16:09 POC Glucose 156 H Assessment/Plan All Active Problems Acute respiratory failure with hypoxia (Acute) CHF exacerbation (Acute) Pleural effusion (Acute) Acute chest pain (Acute) Hypoxemia (Acute) Dyspnea (Acute) Hyperglycemia (Acute) 1. 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 Baseline creatinine 1.8 now at 2.48 on iv diuretic therapy for fluid retention. Pt at risk for ATN from contrast nephropathy, possible dialysis with heart cath. Acute event from anemia, hemodynamic changes. Pt poor prognosis with multiple co-morbidities including frequent blood transfusions, debilitation, fluid retention requiring hospitalization for iv diuretic therapy. Suggest palliative/hospice. 2. Acute angina +trop, cardiology consulted 3. Acute on chronic CHF, hypoxemia, hypervolemia on diuretics. 4. Acute anemia s/p blood transfusion with frequent blood transfusions as outpt, ZAHIDA therapy managed by hematology 5. DM2 primary service mgmt 6. HTN stable 7. Liver cirrhosis on xifaxin 8. hyperammonemia 8. Aortic stenosis 9. Hyperlipidemia 10. morbid obesity 11. Debility DW hospitalist
--- NOTE | 2018-12-03 12:16 | CON.PCM_ITS ---
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 The patient was admitted recently on for CHF following outpt blood t ransfusion. Creatinine improved to 1.85 on 11/04 which is his baseline. Creatinine progressed to 2.48 today on iv lasix therapy for CHF, fluid overload. He denies any bright red blood per rectum, or hematochezia,melena. He denied abdominal pain, nausea, or vomiting. Cardiology consulted for mildly elevated troponin levels. He is scheduled for heart cath tomorrow. Ammonia level is elevated at 50. Hgb 7.1 improved to 8.7g following 2 units prbc. He complains of weakness, denied falling at home. - Allergies Allergies: Allergies No Known Allergies Allergy (Verified 12/01/18 16:49) - Current Medications Current Medications: Current Medications Acetaminophen (Tylenol) 650 mg PO Q6H PRN PRN PRN Reason: Non-cardiac pain (mod-severe) Hydrocodone Bitart/Acetaminophen ([place] 5mg-325mg) 1 - 2 tablet PO Q6H PRN PRN PRN Reason: MOD-SEVERE PAIN (4-10/10) Al Hydroxide/Mg Hydroxide (Mylanta Ii) 15 - 30 ml PO Q4H PRN PRN PRN Reason: INDIGESTION Albuterol Sulfate (Ventolin Aerosols) 2.5 mg INHALATION Q2H PRN PRN PRN Reason: dyspnea, wheezing Last Admin: 12/02/18 04:50 Dose: 2.5 mg Albuterol/Ipratropium (Duoneb) 3 ml INHALATION Q4HWA.RT REJI Last Admin: 12/03/18 10:35 Dose: 3 ml Atorvastatin Calcium (Lipitor) 10 mg PO DAILY@2200 [facility] Last Admin: 12/02/18 21:26 Dose: 10 mg Clobetasol Propionate (Temovate Cream (Bkc)) 1 applic TOPICAL DAILY [facility]; Protocol Last Admin: 12/03/18 09:33 Dose: 1 applic Diphenhydramine HCl (Benadryl) 50 mg PO X1 ONE Stop: 12/04/18 07:01 [facility]ous Sulfate ([facility]) [facility] Last Admin: 12/03/18 08:16 Dose: 325 mg Hydralazine HCl (Apresoline Iv) 10 mg IV Q4H PRN PRN PRN Reason: SBP > 160 Sodium Chloride () 1,000 mls @ 15 mls/hr IV .Q48H [facility] Insulin Glargine (Lantus (Bk)) 25 units SC BID [facility] Last Admin: 12/03/18 09:33 Dose: 25 u Insulin Human Lispro (Humalog Kwikpen ([facility])) 12 unit SC BREAKFAST [facility] Last Admin: 12/03/18 08:16 Dose: 12 units Insulin Human Lispro (Humalog Kwikpen ([facility])) 15 unit SC DINNER [facility] Last Admin: 12/02/18 17:05 Dose: 15 units Insulin Human Lispro (Humalog Kwikpen ([facility])) 24 unit SC LUNCH [facility] Last Admin: 12/03/18 11:58 Dose: 24 units Lactulose (Chronulac, Cephulac) 20 gm PO BID [facility] Last Admin: 12/03/18 09:31 Dose: 20 gm Levothyroxine Sodium (Synthroid) 25 mcg PO DAILY@0600 [facility] Last Admin: 12/03/18 05:32 Dose: 25 mcg Magnesium Hydroxide (Milk Of Magnesia) 30 ml PO DAILY PRN PRN Reason: Constipation Morphine Sulfate () 1 - 2 mg IV Q4H PRN PRN PRN Reason: PAIN Nadolol (Corgard) 40 mg PO DAILY [facility] Last Admin: 12/02/18 08:43 Dose: 40 mg Nitroglycerin (Nitrostat) 0.4 mg SUBLINGUAL Q5M PRN PRN Reason: CARDIAC/CHEST PAIN Ondansetron HCl (Zofran) 4 mg IV Q8H PRN PRN PRN Reason: NAUSEA/VOMITING Pantoprazole Sodium (Protonix) 40 mg PO DAILY [facility] Last Admin: 12/03/18 09:32 Dose: 40 mg Psyllium Hydrophilic Mucilloid (Metamucil) 1 packet PO QHS [facility] Last Admin: 12/02/18 21:27 Dose: 1 packet Rifaximin (Xifaxan) 550 mg PO BID [facility] Last Admin: 12/03/18 09:32 Dose: 550 mg Sodium Chloride () 5 - 15 ml IV UD PRN PRN Reason: SALINE FLUSH Last Admin: 12/03/18 05:31 Dose: 10 ml Spironolactone (Aldactone) 100 mg PO DAILY [facility] Last Admin: 12/03/18 10:03 Dose: 100 mg - Past Medical History Past Medical History (Chronic Problems): Chronic Problems Morbid obesity (Chronic) Aortic stenosis (Chronic) Chronic anemia (Chronic) Type 2 diabetes mellitus (Chronic) Hyperlipidemia (Chronic) Liver cirrhosis (Chronic) Chronic kidney disease, stage III (moderate) (Chronic) CKD (chronic kidney disease) (Chronic) HTN (hypertension) (Chronic) - Past Surgical History Surgical History: - - prostate surgery, hernia surgery, circumcision - Social History Smoking Status: Former smoker Alcohol: None Drugs: None - Family History Maternal History Items: Diabetes Paternal History Items: Cancer - Prostate Review of Systems Constitutional: Reports: Anorexia, Weakness. Denies: Chills, Fever Eyes: Denies: Vision Change HEENT: Denies: Head Aches Cardiovascular: Reports: Chest Pain, Edema. Denies: Syncope Gastrointestinal: Denies: Abdominal Pain, Diarrhea, Hematemesis, Hematochezia, Nausea, Vomiting Genitourinary: Reports: Frequency. Denies: Dysuria Musculoskeletal: Reports: - - swelling Skin: Denies: Rash Neurological: Reports: Balance problems, - - generalized weakness. Denies: Tremor, Seizures Patient Problems: Active and Suspected Problems Acute respiratory failure with hypoxia (Acute) CHF exacerbation (Acute) - Physical Exam General: Alert, Oriented x3, - - poor historian, chart reviewed. HEENT: Atraumatic Neck: Supple Lungs: Rales Cardiovascular: Regular rate, Murmur Abdomen: Bowel Sounds Present, Soft, Distended, Obese, Tender - RLQ Extremities: Edema Skin: No rashes Neurological: - - generalized weakness Psych/Mental Status: Depressed Vital Signs Temp Pulse Resp BP Pulse Ox 98.2 F 67 18 119/40 L 96 12/03/18 09:30 12/03/18 10:35 12/03/18 10:35 12/03/18 09:30 12/03/18 10:35 Oxygen Flow Rate (L/min) 1 Oxygen Delivery Method Nasal Cannula Weight: 120.9 kg Body Mass Index (BMI) 41.4 Finger Stick Blood Glucose 132 Intake and Output for Last 24 Hours 12/01/18 12/02/18 12/03/18 23:59 23:59 23:59 Intake Total 1212 / 1212 2021 590 / 590 Output Total 150 / 150 4050 / 4050 2525 / 2525 Balance 1062 / 1062 -2027 / -1934 / Laboratory Tests Past 24 Hrs 12/01/18 12/02/18 12/02/18 17:05 09:15 09:15 WBC RBC Hgb Hct MCV MCH MCHC RDW RDW Differential Plt Count MPV Immature Gran % (Auto) Neut % (Auto) Lymph % (Auto) [place] % (Auto) Eos % (Auto) Baso % (Auto) Absolute Neuts (auto) Absolute Lymphs (auto) Total Counted Differential Comment Diff Path Review Reviewed Platelet Estimate Plt Morphology Comment Polychromasia Anisocytosis Macrocytosis Sodium Potassium Chloride Carbon Dioxide Anion Gap BUN Creatinine Estim Creat Clear Calc Est GFR (MDRD) Af Amer Est GFR (MDRD) Non-Af BUN/Creatinine Ratio Glucose Calcium Iron TIBC Iron Saturation Ferritin Blood Type A POSITIVE Antibody Screen NEGATIVE Crossmatch See Detail See Detail 12/03/18 12/03/18 12/03/18 05:45 05:45 05:45 WBC 5.9 RBC 2.63 L Hgb 8.7 L Hct 28.1 L MCV 106.8 H MCH 33.1 H MCHC 31.0 L RDW 20.8 H RDW Differential 78.0 H Plt Count 76 L MPV 12.6 H Immature Gran % (Auto) 1.000 H Neut % (Auto) 63.1 Lymph % (Auto) 19.4 [place] % (Auto) 15.3 H Eos % (Auto) 1.0 Baso % (Auto) 0.2 Absolute Neuts (auto) 3.7 Absolute Lymphs (auto) 1.15 Total Counted Not Reportable Differential Comment SCAN Diff Path Review Platelet Estimate MOD DEC Plt Morphology Comment LARGE Polychromasia 1+ Anisocytosis 1+ Macrocytosis 1+ Sodium 141 Potassium 4.0 Chloride 104 Carbon Dioxide 29.0 Anion Gap 8 BUN 56 H Creatinine 2.48 H Estim Creat Clear Calc 23.37 Est GFR (MDRD) Af Amer 32 L Est GFR (MDRD) Non-Af 27 L BUN/Creatinine Ratio 22.6 H Glucose 139 H Calcium 8.1 L Iron 81 TIBC 267 Iron Saturation 30.3 Ferritin 66 Blood Type Antibody Screen Crossmatch POC Glucose 12/03/18 12/03/18 12/02/18 11:05 06:45 21:23 POC Glucose 194 H 142 H 144 H 12/02/18 16:09 POC Glucose 156 H Assessment/Plan All Active Problems Acute respiratory failure with hypoxia (Acute) CHF exacerbation (Acute) Pleural effusion (Acute) Acute chest pain (Acute) Hypoxemia (Acute) Dyspnea (Acute) Hyperglycemia (Acute) 1. 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 Baseline creatinine 1.8 now at 2.48 on iv diuretic therapy for fluid retention. Pt at risk for ATN from contrast nephropathy, possible dialysis with heart cath. Acute event from anemia, hemodynamic changes. Pt poor prognosis with multiple co-morbidities including frequent blood transfusions, debilitation, fluid retention requiring hospitalization for iv diuretic therapy. Suggest palliative/hospice. 2. Acute angina +trop, cardiology consulted 3. Acute on chronic CHF, hypoxemia, hypervolemia on diuretics. 4. Acute anemia s/p blood transfusion with frequent blood transfusions as outpt, ZAHIDA therapy managed by hematology 5. DM2 primary service mgmt 6. HTN stable 7. Liver cirrhosis on xifaxin 8. hyperammonemia 8. Aortic stenosis 9. Hyperlipidemia 10. morbid obesity 11. Debility DW hospitalist
--- NOTE | 2018-12-03 13:15 | CASEMGMT ---
According to the [facility] website, the following are in-network tertiary facilities: [facility], [place], [facility], [facility], [facility], [facility], and . Geovani ISABEL CM
[2018-12-03 16:16] LABS: Bedside Glucose 182 mg/dL (70-110)
[2018-12-03] MEDS: Insulin Lispro 100 UNIT/ML INSULN.PEN 15 UNIT SC (16:57)
[2018-12-03] MEDS: Furosemide 80 MG Tablet PO (16:59)
[2018-12-03] MEDS: Atorvastatin Calcium 10 MG Tablet PO (21:39)
[2018-12-03] MEDS: Psyllium 1 PACKET PO (21:39)
[2018-12-03 21:55] LABS: Bedside Glucose 153 mg/dL (70-110)
[2018-12-04] VITALS (23 sets, daily range): BP systolic 99–124; BP diastolic 46–59; PULSE 54–71; RESP 16–20; TEMP 36.3–37.4; O2SAT 95–99
[2018-12-04 03:26] LABS: Bacteria 0 SEEN /hpf (None Seen); Mucous, Urine 0 SEEN /hpf (<or=2+); Squamous Epithelial Cells - UA 0 SEEN /hpf (0-5)
[2018-12-04 03:42] LABS: Hyaline Cast 0-5 SEEN /lpf (0-5); Red Blood Cells-Urine 5-10 SEEN /hpf (0-5); White Blood Cells 0-5 SEEN /hpf (0-5)
[2018-12-04 03:44] LABS: Color, Urine Yellow (Yellow); Glucose, Dipstick NEGATIVE (Normal); Ketone-Dipstick Negative (Negative); Leukocyte Esterase-Dipstick 500 /ul (Negative); Nitrite-Dipstick Negative (Negative); Occult Blood-Urine 250 /ul (Negative); Protein-Dipstick Negative (Negative); Specific Gravity, Urine 1.015 (1.002-1.030); Urine Bilirubin Dipstick Negative (Negative); Urine Clarity Sl Cloudy (Clear); Urine Urobilinogen Normal (Normal)
[2018-12-04 05:53] LABS: International Normalized Ratio 1.4; Prothrombin Time (Protime)PT. 17.4 SECONDS (11.7-14.9)
[2018-12-04 05:54] LABS: Partial Thromboplast Time 43.9 Seconds (24.1-36.2)
--- NOTE | 2018-12-04 05:55 | EKG12_ITS ---
Test Reason : AM EKG Blood Pressure : / mmHG Vent. Rate : 061 BPM Atrial Rate : 061 BPM P-R Int : 180 ms QRS Dur : 090 ms QT Int : 416 ms P-R-T Axes : 043 049 047 degrees QTc Int : 418 ms Normal sinus rhythm Normal ECG When compared with ECG of 02-DEC-2018 04:45, MANUAL COMPARISON REQUIRED, DATA IS UNCONFIRMED Confirmed by JAGUAR MCCONNELL, MAGY ([id number]), editorial manager ANGIE ORTEGA ([id number]) on 12/09/2018 1:54:12 PM Referred By: ARMANI Confirmed By:MAGY MONTESINOS MD
[2018-12-04 06:01] LABS: Absolute Lymphocyte Count 1.06 X10^3/ul (0.83-4.51); Absolute Neutrophil Count 3.1 X10^3/uL (2.0-7.7); Basophil# 0.01 X10^3/uL; Basophil% 0.2 % (0-1); Eosinophil# 0.14 X10^3/uL; Eosinophils% 2.7 % (0-5); Hematocrit 28.4 % (40-54); Hemoglobin 8.7 g/dl (13.0-16.5); Lymphocyte # 1.06 X10^3/ul (4.0); Lymphocyte % 20.6 % (19-41); Mean Corp Hgb Conc 30.6 g/gl (32-36); Mean Corpuscular Hgb 32.7 pg (27.0-32.0); Mean Corpuscular Volume 106.8 fL (80-94); Mean Platelet Vol. 12.4 fl (6.2-12.0); Monocyte# 0.76 X10^3/uL; Monocyte% 14.8 % (0-10); Neutrophil # 3.12 X10^3/uL (2.7-7.7); Neutrophil % 60.7 % (47-70); Platelet Count 80 K/mm3 (150-450); RBC Distribution Width CV 19.3 % (11.6-14.6); RBC Distribution Width SD 72.3 fl (35.1-43.9); Red Blood Count 2.66 M/mm3 (4.6-6.2); White Blood Count 5.1 K/mm3 (4.4-11.0)
[2018-12-04 06:02] LABS: POSITIVE COUNT NO; POSITIVE DIFFERENTIAL NO
[2018-12-04 06:12] LABS: Anion Gap 7 (5-15); BUN 60 mg/dL (7-18); BUN/Creat Ratio 26.3 RATIO (10-20); Calcium,Total 8.1 mg/dL (8.5-10.1); Chloride 103 mmol/L (98-107); Creatinine, Serum 2.28 mg/dL (0.70-1.30); EST Glomerular Filtration Rate 30 mL/min (>60); Est Glom Filt Rate - Afr Amer 36 mL/min (>60); Estimated Creatinine Clearance 25.42 ml/min; Glucose 130 mg/dL (74-106); Sodium Level 141 mmol/L (136-145)
[2018-12-04 06:28] LABS: Differential Indicated SCAN CRITERIA MET; POSITIVE MORPHOLOGY YES
[2018-12-04 06:29] LABS: Anisocytosis 1+; Differential Comment SCAN; Hypochromasia 1+; Macrocytosis 1+; Polychromasia 1+
[2018-12-04] MEDS: Levothyroxine 25 MCG TABLET PO (06:45)
[2018-12-04] MEDS: Nadolol 40 MG Tablet PO (06:45)
[2018-12-04] MEDS: 0.9% Normal Saline 1,000 ML 15 ML IV (06:45)
[2018-12-04] MEDS: 0.9% NaCl Peripheral Flush Adult/Peds IV (06:45)
[2018-12-04 06:55] LABS: Bedside Glucose 142 mg/dL (70-110)
[2018-12-04] MEDS: Ipratropium/Albuterol Sulfate 3 ML AMPUL.NEB INHALATION ×4 (06:58→19:26)
[2018-12-04] MEDS: DiphenhydrAMINE 25 MG Capsule 50 MG PO (08:29)
--- NOTE | 2018-12-04 08:29 | NURSING ---
This RN called to give report to medical laboratory manager CHALO Lyle.
--- NOTE | 2018-12-04 09:28 | PCM.PN.HOSP ---
Patient Problems: Active and Suspected Problems Acute respiratory failure with hypoxia (Acute) CHF exacerbation (Acute) Subjective: Patient seen and examined this morning. Complained of some intermittent retrosternal pressure-like chest pain overnight. Chest pain had resolved at time of review of this morning. He denied any shortness of breath or palpitations, dizziness, abdominal pain, diarrhea vomiting. Review of systems otherwise negative. Patient and family were counseled extensively yesterday about options for hospice in light of possible further damage to his kidneys from the contrast that will be administered during the cardiac cath. 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 Patient decided that he wanted to go ahead with cardiac cath because he did not want to keep on coming back to the hospital with shortness of breath. Some of his children did not want patient to have cardiac cath but they were counseled that since patient was of sound mind I could make his own decisions, the final decision lay with the patient. Vitals/I&O's: Vital Signs Temp Pulse Resp BP Pulse Ox 98.9 F 62 16 124/59 H 96 12/04/18 06:42 12/04/18 06:58 12/04/18 06:58 12/04/18 06:42 12/04/18 06:58 Oxygen Flow Rate (L/min) 2 Oxygen Delivery Method Nasal Cannula Weight: 270 lb 8.115 oz Body Mass Index (BMI) 41.4 Finger Stick Blood Glucose 132 Intake and Output for Last 24 Hours 12/02/18 12/03/18 12/04/18 23:59 23:59 23:59 Intake Total 2021 1100 / 1100 600 / 600 Output Total 4050 / 4050 3175 / 3175 1600 / 1600 Balance -2027 / -2027 -2074 / -2074 -1000 / -1000 General: Alert, Oriented x3, Cooperative, Lethargic HEENT: Atraumatic, PERRLA, EOMI, Normocephalic Oral: Dry Mucosa Neck: Supple, No JVD, Negative Carotid Bruits Lungs: - - decreased breath sounds bibasally, with mild crackles bibasally, no wheezing. on 2L of oxygen at time of review Cardiovascular: Regular rate, Regular Rhythm, Normal S1, Normal S2, No murmurs Abdomen: Bowel Sounds Present, Soft, Non Tender, Non-Distended Extremities: No clubbing, No cyanosis, - - 1+ bipedal pitting edema of LEs and UEs. Skin: No rashes, No breakdown Musculoskeletal: No Tenderness to Palpation of Joints or Extremities Lymphatic: No Cervical, Supraclavicular, or Inguinal Adenopathy Neurological: Cranial nerves II-XII grossly intact, Neuro grossly intact, Motor Exam 5/5 strength throughout Psych/Mental Status: Normal Affect, Appropriate, Alert and oriented to time, place, person, mood and affect Microbiology Past 72 Hours 12/01/18 16:15 Blood Culture (Wb) - Anticubital Right Blood Culture - Preliminary No growth in 48 hours. 12/01/18 16:20 Blood Culture (Wb) - Anticubital Left Blood Culture - Preliminary No growth in 48 hours. 12/03/18 13:40 Stool Stool Occult Blood (JAMES) - Final Occult Blood Positive Laboratory Results 12/03/18 05:45: Iron 81, TIBC 267, Iron Saturation 30.3, Ferritin 66 12/03/18 11:05: POC Glucose 194 H 12/03/18 16:11: POC Glucose 182 H 12/03/18 21:38: POC Glucose 153 H 12/04/18 03:15: Urine Color Yellow, Urine Clarity Sl Cloudy, Urine pH 6.0, Ur Specific [place] 1.015, Urine Protein Negative, Urine Glucose (UA) NEGATIVE, Urine Ketones Negative, Urine Occult Blood 250 H, Urine Nitrite Negative, Urine Bilirubin Negative, Urine Urobilinogen Normal, Ur Leukocyte Esterase 500 H, Urine RBC 5-10 SEEN, Urine WBC 0-5 SEEN, Ur Squamous Epith Cells 0 SEEN, Urine Bacteria 0 SEEN, Hyaline Casts 0-5 SEEN, Urine Mucus 0 SEEN 12/04/18 05:13: WBC 5.1, RBC 2.66 L, Hgb 8.7 L, Hct 28.4 L, MCV 106.8 H, MCH 32.7 H, MCHC 30.6 L, RDW 19.3 H, RDW Differential 72.3 H, Plt Count 80 L, MPV 12.4 H, Immature Gran % (Auto) 1.000 H, Neut % (Auto) 60.7, Lymph % (Auto) 20.6, Mcleod % (Auto) 14.8 H, Eos % (Auto) 2.7, Baso % (Auto) 0.2, Absolute Neuts (auto) 3.1, Absolute Lymphs (auto) 1.06, Total Counted Not Reportable, Differential Comment SCAN, Polychromasia 1+, Hypochromasia 1+, Anisocytosis 1+, Macrocytosis 1+ 12/04/18 05:13: Sodium 141, Potassium 4.0, Chloride 103, Carbon Dioxide 31.0, Anion Gap 7, BUN 60 H, Creatinine 2.28 H, Estim Creat Clear Calc 25.42, Est GFR (MDRD) Af Amer 36 L, Est GFR (MDRD) Non-Af 30 L, BUN/Creatinine Ratio 26.3 H, Glucose 130 H, Calcium 8.1 L 12/04/18 05:13: PT 17.4 H, INR 1.4, APTT 43.9 H 12/04/18 06:51: POC Glucose 142 H Current Medications Acetaminophen (Tylenol) 650 mg PO Q6H PRN PRN PRN Reason: Non-cardiac pain (mod-severe) Hydrocodone Bitart/Acetaminophen ([place] 5mg-325mg) 1 - 2 tablet PO Q6H PRN PRN PRN Reason: MOD-SEVERE PAIN (4-10) Al Hydroxide/Mg Hydroxide (Mylanta Ii) 15 - 30 ml PO Q4H PRN PRN PRN Reason: INDIGESTION Albuterol Sulfate (Ventolin Aerosols) 2.5 mg INHALATION Q2H PRN PRN PRN Reason: dyspnea, wheezing Last Admin: 12/02/18 04:50 Dose: 2.5 mg Albuterol/Ipratropium (Duoneb) 3 ml INHALATION Q4HWA.RT [facility] Last Admin: 12/04/18 06:58 Dose: 3 ml Atorvastatin Calcium (Lipitor) 10 mg PO DAILY@2200 [facility] Last Admin: 12/03/18 21:39 Dose: 10 mg Clobetasol Propionate (Temovate Cream (Bkc)) 1 applic TOPICAL DAILY [facility]; Protocol Last Admin: 12/03/18 09:33 Dose: 1 applic Ferrous Sulfate (Ferrous Sulfate) 325 mg PO DAILYCM [facility] Last Admin: 12/03/18 08:16 Dose: 325 mg Furosemide (Lasix) 80 mg PO BID@1000,1800 [facility] Last Admin: 12/03/18 16:59 Dose: 80 mg Hydralazine HCl (Apresoline Iv) 10 mg IV Q4H PRN PRN PRN Reason: SBP > 160 Sodium Chloride () 1,000 mls @ 15 mls/hr IV .Q48H [facility] Last Admin: 12/04/18 06:45 Dose: 15 mls/hr Insulin Glargine (Lantus (Bkc)) 25 units SC BID [facility] Last Admin: 12/03/18 21:39 Dose: 25 u Insulin Human Lispro (Humalog Kwikpen (Bkc)) 12 unit SC BREAKFAST [facility] Last Admin: 12/04/18 07:39 Dose: Not Given Insulin Human Lispro (Humalog Kwikpen (Bkc)) 15 unit SC DINNER [facility] Last Admin: 12/03/18 16:57 Dose: 15 units Insulin Human Lispro (Humalog Kwikpen (Bkc)) 24 unit SC LUNCH [facility] Last Admin: 12/03/18 11:58 Dose: 24 units Lactulose (Chronulac, Cephulac) 20 gm PO BID [facility] Last Admin: 12/03/18 21:39 Dose: 20 gm Levothyroxine Sodium (Synthroid) 25 mcg PO DAILY@0600 [facility] Last Admin: 12/04/18 06:45 Dose: 25 mcg Magnesium Hydroxide (Milk Of Magnesia) 30 ml PO DAILY PRN PRN Reason: Constipation Morphine Sulfate () 1 - 2 mg IV Q4H PRN PRN PRN Reason: PAIN Nadolol (Corgard) 40 mg PO DAILY [facility] Last Admin: 12/04/18 06:45 Dose: 40 mg Nitroglycerin (Nitrostat) 0.4 mg SUBLINGUAL Q5M PRN PRN Reason: CARDIAC/CHEST PAIN Ondansetron HCl (Zofran) 4 mg IV Q8H PRN PRN PRN Reason: NAUSEA/VOMITING Pantoprazole Sodium (Protonix) 40 mg PO DAILY [facility] Last Admin: 12/03/18 09:32 Dose: 40 mg Psyllium Hydrophilic Mucilloid (Metamucil) 1 packet PO QHS [facility] Last Admin: 12/03/18 21:39 Dose: 1 packet Rifaximin (Xifaxan) 550 mg PO BID [facility] Last Admin: 12/03/18 21:40 Dose: 550 mg Sodium Chloride () 5 - 15 ml IV UD PRN PRN Reason: SALINE FLUSH Last Admin: 12/04/18 06:45 Dose: 10 ml Spironolactone (Aldactone) 100 mg PO DAILY [facility] Last Admin: 12/03/18 10:03 Dose: 100 mg Medical Necessity - Tobacco Use Smoking Status: Former smoker Tobacco Use: Non-smoker Assessment/Plan All Active Problems Acute respiratory failure with hypoxia (Acute) CHF exacerbation (Acute) Pleural effusion (Acute) Acute chest pain (Acute) Hypoxemia (Acute) Dyspnea (Acute) Hyperglycemia (Acute) 1. Acute hypoxic respiratory failure due to [id number] diastolic heart failure on IV lasix 40mg bid uses BIPAP qhs put out 3.1 of urine over last 24 hours. in cumulative negative balance by 4L since admission fluid restriction to 1500cc daily Echo (11/10): EF of 60% with mild concentric left ventricular hypertrophy and normal left ventricular systolic function. No regional wall motion abnormalities noted. On beta-thais and spironolactone. TSH was within normal limits. 2. Elevated troponins: Troponin was 0.076 admission and peaked at 0.096. for cardiac cath today on aspirin and statin. 3. Acute on chronic diastolic heart failure exacerbation as under 1. 4. Anemia s/p 2 units of PRBC Hb today is 8.7. is transfusion dependent, and according to family, follows with Dr Oliveira. No clear cause of anemia has been found. i 5. ? New onset Afib: EKG in ED showed questionable Afib with RVR. Has been in sinus rhythm since. Was given one dose of therapeutic lovenox. TSH and electrolytes were WNL cardiology on board no further anticoagulation o/a of thrombocytopenia and transfusion dependent anemia 6. Cirrhosis due to nonalcoholic steatohepatitis:on lactulose, spironolactone, nadolol and Xifaxan. 7. Hypertension: On spironolactone and nadolol. 8. Chronic thrombocytopenia: platelets are 80 today. Is chronic, and is due to liver disease. 9. CKD stage III: Creatinine is up to 2.28 today. Was 1.77 on admission. nephrology on board 10. Hypothyroidism: On Synthroid. 11. Type 2 diabetes mellitus: On insulin. Actos AC at bedtime. Insulin sliding scale. 12. COPD: Breathing treatments. Titrate oxygen to maintain above 90%. 13. GERD: On PPI. 14. Morbid obesity: Complicates care and management as well as expected recovery. DVT prophylaxis; SCDs, no anticoagulation o.a of thrombocytopenia and anemia Code status: full code Code Visit Inpatient E&M: 54835 Subs Hosp L3
--- NOTE | 2018-12-04 09:33 | PN_ITS ---
Patient Problems: Active and Suspected Problems Acute respiratory failure with hypoxia (Acute) CHF exacerbation (Acute) Subjective: Patient seen and examined this morning. Complained of some intermittent retrosternal pressure-like chest pain overnight. Chest pain had resolved at time of review of this morning. He denied any shortness of breath or palpitations, dizziness, abdominal pain, diarrhea vomiting. Review of systems otherwise negative. Patient and family were counseled extensively yesterday about options for hospice in light of possible further damage to his kidneys from the contrast that will be administered during the cardiac cath. 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 Patient decided that he wanted to go ahead with cardiac cath because he did not want to keep on coming back to the hospital with shortness of breath. Some of his children did not want patient to have cardiac cath but they were counseled that since patient was of sound mind I could make his own decisions, the final decision lay with the patient. Vitals/I&O's: Vital Signs Temp Pulse Resp BP Pulse Ox 98.9 F 62 16 124/59 H 96 12/04/18 06:42 12/04/18 06:58 12/04/18 06:58 12/04/18 06:42 12/04/18 06:58 Oxygen Flow Rate (L/min) 2 Oxygen Delivery Method Nasal Cannula Weight: 270 lb 8.115 oz Body Mass Index (BMI) 41.4 Finger Stick Blood Glucose 132 Intake and Output for Last 24 Hours 12/02/18 12/03/18 12/04/18 23:59 23:59 23:59 Intake Total 2021 1100 / 1100 600 / 600 Output Total 4050 / 4050 3175 / 3175 1600 / 1600 Balance -2027 / -2027 -2074 / -2074 -1000 / -1000 General: Alert, Oriented x3, Cooperative, Lethargic HEENT: Atraumatic, PERRLA, EOMI, Normocephalic Oral: Dry Mucosa Neck: Supple, No JVD, Negative Carotid Bruits Lungs: - - decreased breath sounds bibasally, with mild crackles bibasally, no wheezing. on 2L of oxygen at time of review Cardiovascular: Regular rate, Regular Rhythm, Normal S1, Normal S2, No murmurs Abdomen: Bowel Sounds Present, Soft, Non Tender, Non-Distended Extremities: No clubbing, No cyanosis, - - 1+ bipedal pitting edema of LEs and UEs. Skin: No rashes, No breakdown Musculoskeletal: No Tenderness to Palpation of Joints or Extremities Lymphatic: No Cervical, Supraclavicular, or Inguinal Adenopathy Neurological: Cranial nerves II-XII grossly intact, Neuro grossly intact, Motor Exam 5/5 strength throughout Psych/Mental Status: Normal Affect, Appropriate, Alert and oriented to time, place, person, mood and affect Microbiology Past 72 Hours 12/01/18 16:15 Blood Culture (Wb) - Anticubital Right Blood Culture - Preliminary No growth in 48 hours. 12/01/18 16:20 Blood Culture (Wb) - Anticubital Left Blood Culture - Preliminary No growth in 48 hours. 12/03/18 13:40 Stool Stool Occult Blood (JAMES) - Final Occult Blood Positive Laboratory Results 12/03/18 05:45: Iron 81, TIBC 267, Iron Saturation 30.3, Ferritin 66 12/03/18 11:05: POC Glucose 194 H 12/03/18 16:11: POC Glucose 182 H 12/03/18 21:38: POC Glucose 153 H 12/04/18 03:15: Urine Color Yellow, Urine Clarity Sl Cloudy, Urine pH 6.0, Ur Specific [place] 1.015, Urine Protein Negative, Urine Glucose (UA) NEGATIVE, Urine Ketones Negative, Urine Occult Blood 250 H, Urine Nitrite Negative, Urine Bilirubin Negative, Urine Urobilinogen Normal, Ur Leukocyte Esterase 500 H, Urine RBC 5-10 SEEN, Urine WBC 0-5 SEEN, Ur Squamous Epith Cells 0 SEEN, Urine Bacteria 0 SEEN, Hyaline Casts 0-5 SEEN, Urine Mucus 0 SEEN 12/04/18 05:13: WBC 5.1, RBC 2.66 L, Hgb 8.7 L, Hct 28.4 L, MCV 106.8 H, MCH 32.7 H, MCHC 30.6 L, RDW 19.3 H, RDW Differential 72.3 H, Plt Count 80 L, MPV 12.4 H, Immature Gran % (Auto) 1.000 H, Neut % (Auto) 60.7, Lymph % (Auto) 20.6, [place] % (Auto) 14.8 H, Eos % (Auto) 2.7, Baso % (Auto) 0.2, Absolute Neuts (auto) 3.1, Absolute Lymphs (auto) 1.06, Total Counted Not Reportable, Differential Comment SCAN, Polychromasia 1+, Hypochromasia 1+, Anisocytosis 1+, Macrocytosis 1+ 12/04/18 05:13: Sodium 141, Potassium 4.0, Chloride 103, Carbon Dioxide 31.0, Anion Gap 7, BUN 60 H, Creatinine 2.28 H, Estim Creat Clear Calc 25.42, Est GFR (MDRD) Af Amer 36 L, Est GFR (MDRD) Non-Af 30 L, BUN/Creatinine Ratio 26.3 H, Glucose 130 H, Calcium 8.1 L 12/04/18 05:13: PT 17.4 H, INR 1.4, APTT 43.9 H 12/04/18 06:51: POC Glucose 142 H Current Medications Acetaminophen (Tylenol) 650 mg PO Q6H PRN PRN PRN Reason: Non-cardiac pain (mod-severe) Hydrocodone Bitart/Acetaminophen ([place] 5mg-325mg) 1 - 2 tablet PO Q6H PRN PRN PRN Reason: MOD-SEVERE PAIN (4-10) Al Hydroxide/Mg Hydroxide (Mylanta Ii) 15 - 30 ml PO Q4H PRN PRN PRN Reason: INDIGESTION Albuterol Sulfate (Ventolin Aerosols) 2.5 mg INHALATION Q2H PRN PRN PRN Reason: dyspnea, wheezing Last Admin: 12/02/18 04:50 Dose: 2.5 mg Albuterol/Ipratropium (Duoneb) 3 ml INHALATION Q4HWA.RT [facility] Last Admin: 12/04/18 06:58 Dose: 3 ml Atorvastatin Calcium (Lipitor) 10 mg PO DAILY@2200 [facility] Last Admin: 12/03/18 21:39 Dose: 10 mg Clobetasol Propionate (Temovate Cream (Bkc)) 1 applic TOPICAL DAILY [facility]; Protocol Last Admin: 12/03/18 09:33 Dose: 1 applic Ferrous Sulfate (Ferrous Sulfate) 325 mg PO DAILYCM [facility] Last Admin: 12/03/18 08:16 Dose: 325 mg Furosemide (Lasix) 80 mg PO BID@1000,1800 [facility] Last Admin: 12/03/18 16:59 Dose: 80 mg Hydralazine HCl (Apresoline Iv) 10 mg IV Q4H PRN PRN PRN Reason: SBP > 160 Sodium Chloride () 1,000 mls @ 15 mls/hr IV .Q48H [facility] Last Admin: 12/04/18 06:45 Dose: 15 mls/hr Insulin Glargine (Lantus (Bkc)) 25 units SC BID [facility] Last Admin: 12/03/18 21:39 Dose: 25 u Insulin Human Lispro (Humalog Kwikpen (Bkc)) 12 unit SC BREAKFAST [facility] Last Admin: 12/04/18 07:39 Dose: Not Given Insulin Human Lispro (Humalog Kwikpen (Bkc)) 15 unit SC DINNER [facility] Last Admin: 12/03/18 16:57 Dose: 15 units Insulin Human Lispro (Humalog Kwikpen (Bkc)) 24 unit SC LUNCH [facility] Last Admin: 12/03/18 11:58 Dose: 24 units Lactulose (Chronulac, Cephulac) 20 gm PO BID [facility] Last Admin: 12/03/18 21:39 Dose: 20 gm Levothyroxine Sodium (Synthroid) 25 mcg PO DAILY@0600 [facility] Last Admin: 12/04/18 06:45 Dose: 25 mcg Magnesium Hydroxide (Milk Of Magnesia) 30 ml PO DAILY PRN PRN Reason: Constipation Morphine Sulfate () 1 - 2 mg IV Q4H PRN PRN PRN Reason: PAIN Nadolol (Corgard) 40 mg PO DAILY [facility] Last Admin: 12/04/18 06:45 Dose: 40 mg Nitroglycerin (Nitrostat) 0.4 mg SUBLINGUAL Q5M PRN PRN Reason: CARDIAC/CHEST PAIN Ondansetron HCl (Zofran) 4 mg IV Q8H PRN PRN PRN Reason: NAUSEA/VOMITING Pantoprazole Sodium (Protonix) 40 mg PO DAILY [facility] Last Admin: 12/03/18 09:32 Dose: 40 mg Psyllium Hydrophilic Mucilloid (Metamucil) 1 packet PO QHS [facility] Last Admin: 12/03/18 21:39 Dose: 1 packet Rifaximin (Xifaxan) 550 mg PO BID [facility] Last Admin: 12/03/18 21:40 Dose: 550 mg Sodium Chloride () 5 - 15 ml IV UD PRN PRN Reason: SALINE FLUSH Last Admin: 12/04/18 06:45 Dose: 10 ml Spironolactone (Aldactone) 100 mg PO DAILY [facility] Last Admin: 12/03/18 10:03 Dose: 100 mg Medical Necessity - Tobacco Use Smoking Status: Former smoker Tobacco Use: Non-smoker Assessment/Plan All Active Problems Acute respiratory failure with hypoxia (Acute) CHF exacerbation (Acute) Pleural effusion (Acute) Acute chest pain (Acute) Hypoxemia (Acute) Dyspnea (Acute) Hyperglycemia (Acute) 1. Acute hypoxic respiratory failure due to [id number] diastolic heart failure * on IV lasix 40mg bid * uses BIPAP qhs * put out 3.1 of urine over last 24 hours. in cumulative negative balance by 4L since admission * fluid restriction to 1500cc daily * Echo (11/10): EF of 60% with mild concentric left ventricular hypertrophy and normal left ventricular systolic function. No regional wall motion abnormalities noted. * On beta-thais and spironolactone. * TSH was within normal limits. * 2. Elevated troponins: * Troponin was 0.076 admission and peaked at 0.096. * for cardiac cath today * on aspirin and statin. * 3. Acute on chronic diastolic heart failure exacerbation * as under 1. * 4. Anemia s/p 2 units of PRBC * Hb today is 8.7. is transfusion dependent, and according to family, follows with Dr Oliveira. * No clear cause of anemia has been found. * i * 5. ? New onset Afib: * EKG in ED showed questionable Afib with RVR. * Has been in sinus rhythm since. Was given one dose of therapeutic lovenox. * TSH and electrolytes were WNL * cardiology on board * no further anticoagulation o/a of thrombocytopenia and transfusion dependent anemia * 6. Cirrhosis due to nonalcoholic steatohepatitis:on lactulose, spironolactone, nadolol and Xifaxan. 7. Hypertension: On spironolactone and nadolol. 8. Chronic thrombocytopenia: platelets are 80 today. Is chronic, and is due to liver disease. 9. CKD stage III: * Creatinine is up to 2.28 today. * Was 1.77 on admission. * nephrology on board * 10. Hypothyroidism: On Synthroid. 11. Type 2 diabetes mellitus: On insulin. Actos AC at bedtime. Insulin sliding scale. 12. COPD: Breathing treatments. Titrate oxygen to maintain above 90%. 13. GERD: On PPI. 14. Morbid obesity: Complicates care and management as well as expected recovery. DVT prophylaxis; SCDs, no anticoagulation o.a of thrombocytopenia and anemia Code status: full code Code Visit Inpatient E&M: 95685 Subs Hosp L3
[2018-12-04 09:51] LABS: Base Excess 5 mmol/L (-2 to +2); Blood Gas Specimen Type ART; PO2 50 mmHG (75-100); SO2 83 % (95-99); Total Carbon Dioxide 32 mmol/L; pCO2 52.2 mmHg (35-45); pH 7.37 (7.35-7.45)
[2018-12-04 09:51] LABS: Blood Gas Specimen Type VEN; VBG BASE EXCESS 5 mmol/L (-1.0-3.5); VBG Bicarbonate 30 mmol/L (22-26); VBG Oxygen Content 32 mmol/L (23-33); VBG PO2 37 mmHg (25-40); VBG SO2 68 % (50-70); VBG pCO2 53.9 mmHg (41-51); VBG pH 7.36 (7.32-7.42)
--- NOTE | 2018-12-04 09:52 | CL.D_ITS ---
Patient Name: HANG MCNEAL Study Date: 12/04/2018 Performing: Ronald Jones MD Ht: 68.11 inches 173 cm : 1940 Wt: 271.17 lbs 123 kg Age: 78 Gender: male BSA: 2.33 PROCEDURE(S) PERFORMED [id number]/LHC/COR/LV CLINICAL PROFILE AND INDICATIONS Indications: Suspected CAD, Suspected CAD, Cardiac Arrythmia, Valvular Disease Heart Failure: NYHA Class: 2, Newly Diagnosed: No, Heart Failure Type: Diastolic Stress/Imaging Stress/Image Study Performed: No Angina Classification Anginal Classification w/in 2 Weeks: No symptoms CAD Presentations: Other: Dyspnea, afib, CHF, aortic stenosis. Comorbidities/Risk Factors: Hypertension Dyslipidemia Diabetes Mellitus: Diabetes Therapy: Oral CONCLUSIONS Normal coronary arteries The patient has pulmonary hypertension which is mild. Right heart pressures - mildly elevated RECOMMENDATIONS Management as per referring Entry Engineer Medical management of aortic stenosis. Would not recommend asa or plavix given recent anemia. Medic al management of afib. Manual sheath removal. Total of 30 ccs of IV contrast dye for limited LHC; NO LV gram performed due to CRI. DESCRIPTION OF PROCEDURE The patient arrived to the procedure lab. The risks and benefits of the procedure as well as a full d escription of our services here and current unavailability of surgical backup were fully explained to the patient and/or their significant other prior to the catheterization. The Timeout was completed, verifying the correct patient and procedure. The patient's procedural site was prepped and draped in the usual fashion. Local anesthetic was given subcutaneously to right groin region with Lidocaine 2%. Using a modified Seldinger technique, arterial access was obtained via the right femoral artery, a 4 Fr sheath was inserted Venous access was obtained via the right femoral vein, a 7Fr sheath was insert ed. A 7Fr thermal dilution catheter was inserted and right heart pressures were recorded, it was then advanced to PA position for cardiac outputs. Thermal dilution cardiac outputs were then recorded. O2 saturations were then obtained. The Thermal dilution catheter was then removed. Simultaneous pressures were then recorded. Left Ventriculography was performed in REBOLLEDO projection usin g a 4 Fr. Pigtail catheter. LV to AO pullback pressures were then recorded. Left Coronary Artery maninder ctive angiography was performed in multiple views using a 4 Fr. JL5 catheter. Right Coronary Artery s elective angiography was then performed in multiple views using a 4 Fr. 3DRC catheter.The arterial sh eath was pulled and manual compression applied until hemostasis is achieved. CORONARY ANGIOGRAPHY DOMINANCE: Left Dominant LEFT HEART ASSESSMENT Left Ventricular Ejection Fraction: Not assessed LV wall motion not assessed LVEDP: 15 mmHg RIGHT HEART ASSESSMENT Thermal CO: 7.11 Thermal CI: 3.05 Saul CO: 12.47 Saul CI: 5.35 PW: 12 PA: 43/4 23 RV: 40/0 10 RA: 05/31 4 PVR: 71 SVR: 372 Right Heart pressures - elevated LEFT MAIN: Angiographically normal LEFT ANTERIOR DECENDING ARTERY: Angiographically normal CIRCUMFLEX ARTERY: Angiographically normal RIGHT CORONARY ARTERY: Angiographically normal COMPLICATIONS No Complications PROCEDURE MEDICATIONS Oxygen: 2 L/min via nasal cannula SUMMARY OF HEMODYNAMIC DATA Time AIR REST ECG 09:15:57 RA 05/31 (4) SV 09:25:34 RV 40/0, 10 09:25:47 PW (12) PV 09:26:32 PA 43/4 (23) PA 09:26:49 PAp 0/0 (33) 09:26:56 LV 121/-9, 16 09:32:26 LV 122/-7, 18 09:32:33 LV 122/-9, 13 09:32:58 PW (15) 09:32:58 LV 118/-11, 15 09:33:08 PW (13) 09:33:08 LV 119/-12, 14 09:33:29 RV 40/-1, 11 09:33:29 LV 120/-10, 18 09:33:37 RV 44/1, 12 09:33:37 LVp 118/-8, 20 09:34:10 AOp 98/43 (63) 09:34:15 AO 85/43 (62) SA 09:36:23 Type SV CO (l/m) CI (l/m/ HR Time AIR REST Thermal 151.30 7.11 3.05 47 09:15:57 Saul 265.30 12.47 5.35 47 09:15:57 Label % O2 Pres/Loc Time AIR REST PA 62 PA 09:40:29 AO 83 PV 09:40:36 Signed By Ronald Jones MD 12/04/2018 9:51:19 AM Ronald Jones MD
[2018-12-04 09:56] LABS: Blood Gas Specimen Type VEN; VBG BASE EXCESS 5 mmol/L (-1.0-3.5); VBG Bicarbonate 30 mmol/L (22-26); VBG Oxygen Content 32 mmol/L (23-33); VBG PO2 31 mmHg (25-40); VBG SO2 56 % (50-70); VBG pCO2 53.8 mmHg (41-51); VBG pH 7.36 (7.32-7.42)
[2018-12-04] MEDS: 0.9% Normal Saline 1,000 ML 150 ML IV (10:28)
[2018-12-04] MEDS: rifAXIMin 550 MG Tablet PO ×2 (11:19→22:48)
[2018-12-04] MEDS: Ferrous Sulfate 325 MG Tablet PO (11:19)
[2018-12-04] MEDS: Lactulose 20 GM/30 ML UDC PO ×2 (11:21→22:47)
[2018-12-04] MEDS: Pantoprazole Sodium 40 MG Tablet PO (11:21)
[2018-12-04] MEDS: Clobetasol Propionate 0.05% Cream 1 APPLIC TOPICAL (11:21)
[2018-12-04 12:05] LABS: Bedside Glucose 127 mg/dL (70-110)
--- NOTE | 2018-12-04 13:09 | PN.RENAL_ITS ---
Patient Problems: Active and Suspected Problems Acute respiratory failure with hypoxia (Acute) CHF exacerbation (Acute) Subjective: no chest pain since admit. Breathing stable Underwent heart cath this am with 30cc iv contrast used. Creatinine improved prior to cath this am. Urine output good. BP low. Tolerated lunch well. - Physical Exam General: Alert, Oriented x3, Cooperative, No apparent distress Lungs: Clear to auscultation - anteriorly Cardiovascular: Regular rate, Murmur Abdomen: Bowel Sounds Present, Soft, Non Tender, Obese Extremities: No edema Vital Signs Temp Pulse Resp BP Pulse Ox 98.4 F 56 L 18 99/51 L 96 12/04/18 13:00 12/04/18 13:00 12/04/18 13:00 12/04/18 13:00 12/04/18 13:00 Oxygen Flow Rate (L/min) 1 Oxygen Delivery Method Nasal Cannula Weight: 122.7 kg Body Mass Index (BMI) 41.4 Finger Stick Blood Glucose 132 Intake and Output for Last 24 Hours 12/02/18 12/03/18 12/04/18 23:59 23:59 23:59 Intake Total 2021 / 2021 1100 / 1100 884 / 884 Output Total 4050 / 4050 3175 / 3175 2850 / 2850 Balance -2027 / -2027 -2074 / -2074 -1965 / -1965 Microbiology Past 72 Hours 12/01/18 16:15 Blood Culture - Preliminary Blood Culture (Wb) - Anticubital Right No growth in 48 hours. 12/01/18 16:20 Blood Culture - Preliminary Blood Culture (Wb) - Anticubital Left No growth in 48 hours. 12/03/18 13:40 Stool Occult Blood (JAMES) - Final Stool Occult Blood Positive Laboratory Tests Past 24 Hrs 12/04/18 12/04/18 12/04/18 03:15 05:13 05:13 WBC 5.1 RBC 2.66 L Hgb 8.7 L Hct 28.4 L MCV 106.8 H MCH 32.7 H MCHC 30.6 L RDW 19.3 H RDW Differential 72.3 H Plt Count 80 L MPV 12.4 H Immature Gran % (Auto) 1.000 H Neut % (Auto) 60.7 Lymph % (Auto) 20.6 [place] % (Auto) 14.8 H Eos % (Auto) 2.7 Baso % (Auto) 0.2 Absolute Neuts (auto) 3.1 Absolute Lymphs (auto) 1.06 Total Counted Not Reportable Differential Comment SCAN Polychromasia 1+ Hypochromasia 1+ Anisocytosis 1+ Macrocytosis 1+ PT INR APTT Specimen Type pH Bicarbonate Actual POC Total CO2 Base Excess O2 Saturation ABG pCO2 ABG pO2 VBG pH VBG pO2 VBG O2 Sat (Calc) VBG O2 Content VBG Base Excess POC Mix VBG pCO2 Pt Tmp Sodium 141 Potassium 4.0 Chloride 103 Carbon Dioxide 31.0 Anion Gap 7 BUN 60 H Creatinine 2.28 H Estim Creat Clear Calc 25.42 Est GFR (MDRD) Af Amer 36 L Est GFR (MDRD) Non-Af 30 L BUN/Creatinine Ratio 26.3 H Glucose 130 H Calcium 8.1 L Urine Color Yellow Urine Clarity Sl Cloudy Urine pH 6.0 Ur Specific [place] 1.015 Urine Protein Negative Urine Glucose (UA) NEGATIVE Urine Ketones Negative Urine Occult Blood 250 H Urine Nitrite Negative Urine Bilirubin Negative Urine Urobilinogen Normal Ur Leukocyte Esterase 500 H Urine RBC 5-10 SEEN Urine WBC 0-5 SEEN Ur Squamous Epith Cells 0 SEEN Urine Bacteria 0 SEEN Hyaline Casts 0-5 SEEN Urine Mucus 0 SEEN 12/04/18 12/04/18 12/04/18 05:13 09:30 09:33 WBC RBC Hgb Hct MCV MCH MCHC RDW RDW Differential Plt Count MPV Immature Gran % (Auto) Neut % (Auto) Lymph % (Auto) [place] % (Auto) Eos % (Auto) Baso % (Auto) Absolute Neuts (auto) Absolute Lymphs (auto) Total Counted Differential Comment Polychromasia Hypochromasia Anisocytosis Macrocytosis PT 17.4 H INR 1.4 APTT 43.9 H Specimen Type MADY MADY pH Bicarbonate Actual POC Total CO2 Base Excess O2 Saturation ABG pCO2 ABG pO2 VBG pH 7.36 7.36 VBG pO2 31 37 VBG O2 Sat (Calc) 56 68 VBG O2 Content 32 32 VBG Base Excess 5 H 5 H POC Mix VBG pCO2 Pt Tmp 53.8 H 53.9 H Sodium Potassium Chloride Carbon Dioxide Anion Gap BUN Creatinine Estim Creat Clear Calc Est GFR (MDRD) Af Amer Est GFR (MDRD) Non-Af BUN/Creatinine Ratio Glucose Calcium Urine Color Urine Clarity Urine pH Ur Specific [place] Urine Protein Urine Glucose (UA) Urine Ketones Urine Occult Blood Urine Nitrite Urine Bilirubin Urine Urobilinogen Ur Leukocyte Esterase Urine RBC Urine WBC Ur Squamous Epith Cells Urine Bacteria Hyaline Casts Urine Mucus 12/04/18 09:38 WBC RBC Hgb Hct MCV MCH MCHC RDW RDW Differential Plt Count MPV Immature Gran % (Auto) Neut % (Auto) Lymph % (Auto) [place] % (Auto) Eos % (Auto) Baso % (Auto) Absolute Neuts (auto) Absolute Lymphs (auto) Total Counted Differential Comment Polychromasia Hypochromasia Anisocytosis Macrocytosis PT INR APTT Specimen Type ART pH 7.37 Bicarbonate Actual 30.0 H POC Total CO2 32 Base Excess 5 H O2 Saturation 83 L ABG pCO2 52.2 H ABG pO2 50 L VBG pH VBG pO2 VBG O2 Sat (Calc) VBG O2 Content VBG Base Excess POC Mix VBG pCO2 Pt Tmp Sodium Potassium Chloride Carbon Dioxide Anion Gap BUN Creatinine Estim Creat Clear Calc Est GFR (MDRD) Af Amer Est GFR (MDRD) Non-Af BUN/Creatinine Ratio Glucose Calcium Urine Color Urine Clarity Urine pH Ur Specific [place] Urine Protein Urine Glucose (UA) Urine Ketones Urine Occult Blood Urine Nitrite Urine Bilirubin Urine Urobilinogen Ur Leukocyte Esterase Urine RBC Urine WBC Ur Squamous Epith Cells Urine Bacteria Hyaline Casts Urine Mucus POC Glucose 12/04/18 12/04/18 12/03/18 11:09 06:51 21:38 POC Glucose 127 H 142 H 153 H 12/03/18 16:11 POC Glucose 182 H Medical Necessity - Tobacco Use Smoking Status: Former smoker Tobacco Use: Non-smoker Assessment/Plan All Active Problems Acute respiratory failure with hypoxia (Acute) CHF exacerbation (Acute) Pleural effusion (Acute) Acute chest pain (Acute) Hypoxemia (Acute) Dyspnea (Acute) Hyperglycemia (Acute) 1. 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 Baseline creatinine 1.8 now at 2.28 today prior to cath. Watch for contrast nephropathy. Minimal dye used today. Tolerated lunch well. 2. Acute angina no further chest pain s/p cath. 3. Acute on chronic CHF, hypoxemia, hypervolemia diuresing well on diuretics. Breathing, oxygenation stable 4. Acute anemia s/p blood transfusion with frequent blood transfusions as outpt, ZAHIDA therapy managed by hematology + aiac hemals.
--- NOTE | 2018-12-04 13:45 | CASEMGMT ---
Addendum entered by Ellie Liu 12/04/18 14:03: Green sheet on chart for home oxygen. Geovani ISABEL CM Original Note: This RN CM to room to speak with pt/daughter regarding discharge plan at this time. This RN CM offered HHC to pt at this time and pt declines to make a decision at this time. CM to follow PT/OT and re-visit with pt. Pt states no preference if home oxygen needed at discharge. CM to follow for home oxygen. Pt is agreeable to CCN referral at this time. Pt/daughter voice no further concerns/needs at this time. Geovani ISABEL CM
--- NOTE | 2018-12-04 14:36 | CASEMGMT ---
Green sheet placed on chart in anticipation of weekend discharge. MARLENY Stahl
--- NOTE | 2018-12-04 14:45 | NURSING ---
Pt ambulated from bed to wheelchair, post heart cath recovery completed. Drsg d/c/i, no signs of complications or bleeding.
[2018-12-04] MEDS: Insulin Lispro 100 UNIT/ML INSULN.PEN 15 UNIT SC (16:38)
--- NOTE | 2018-12-04 16:43 | PN_ITS ---
Progress Note Patient is scheduled for Pulmonary Function test on 12/11/2018 at 8 AM. He is scheduled for a post hospital follow-up on 12/18/2018 at 11 AM with Jason Nurse Practitioner with the [facility].
[2018-12-04 19:00] LABS: Bedside Glucose 225 mg/dL (70-110)
[2018-12-04] MEDS: Psyllium 1 PACKET PO (22:47)
[2018-12-04] MEDS: Atorvastatin Calcium 10 MG Tablet PO (22:48)
[2018-12-04 23:06] LABS: Bedside Glucose 121 mg/dL (70-110)
[2018-12-05] VITALS (9 sets, daily range): BP systolic 109–122; BP diastolic 54–66; PULSE 59–67; RESP 18–20; TEMP 35.9–36.7; O2SAT 92–96
[2018-12-05] MEDS: Levothyroxine 25 MCG TABLET PO (05:14)
[2018-12-05 06:27] LABS: Absolute Lymphocyte Count 0.84 X10^3/ul (0.83-4.51); Absolute Neutrophil Count 2.8 X10^3/uL (2.0-7.7); Basophil# 0.01 X10^3/uL; Basophil% 0.2 % (0-1); Eosinophil# 0.19 X10^3/uL; Eosinophils% 4.3 % (0-5); Lymphocyte # 0.84 X10^3/ul (4.0); Lymphocyte % 19.2 % (19-41); Mean Corpuscular Hgb 33.3 pg (27.0-32.0); Mean Corpuscular Volume 107.4 fL (80-94); Mean Platelet Vol. 12.4 fl (6.2-12.0); Monocyte# 0.55 X10^3/uL; Monocyte% 12.6 % (0-10); Neutrophil # 2.75 X10^3/uL (2.7-7.7); Platelet Count 85 K/mm3 (150-450); RBC Distribution Width CV 18.4 % (11.6-14.6); RBC Distribution Width SD 68.4 fl (35.1-43.9); White Blood Count 4.4 K/mm3 (4.4-11.0)
[2018-12-05 06:28] LABS: Differential Indicated SCAN CRITERIA MET; POSITIVE COUNT NO; POSITIVE DIFFERENTIAL NO; POSITIVE MORPHOLOGY YES
[2018-12-05 06:35] LABS: Anion Gap 7 (5-15); BUN 52 mg/dL (7-18); BUN/Creat Ratio 27.2 RATIO (10-20); Chloride 104 mmol/L (98-107); Creatinine, Serum 1.91 mg/dL (0.70-1.30); EST Glomerular Filtration Rate 36 mL/min (>60); Est Glom Filt Rate - Afr Amer 44 mL/min (>60); Estimated Creatinine Clearance 30.34 ml/min; Glucose 131 mg/dL (74-106); Potassium 4.2 mmol/L (3.5-5.1); Sodium Level 141 mmol/L (136-145)
[2018-12-05 06:50] LABS: Anisocytosis 1+; Differential Comment SCAN; Macrocytosis 1+; Polychromasia 1+
[2018-12-05] MEDS: Ipratropium/Albuterol Sulfate 3 ML AMPUL.NEB INHALATION ×3 (06:58→14:53)
[2018-12-05 07:06] LABS: Bedside Glucose 132 mg/dL (70-110)
[2018-12-05] MEDS: Ferrous Sulfate 325 MG Tablet PO (08:46)
[2018-12-05] MEDS: Insulin Lispro 100 UNIT/ML INSULN.PEN 12 UNIT SC (08:47)
[2018-12-05] MEDS: Lactulose 20 GM/30 ML UDC PO (08:48)
[2018-12-05] MEDS: Nadolol 40 MG Tablet PO (08:48)
[2018-12-05] MEDS: Pantoprazole Sodium 40 MG Tablet PO (08:49)
[2018-12-05] MEDS: Furosemide 80 MG Tablet PO (08:49)
[2018-12-05] MEDS: rifAXIMin 550 MG Tablet PO (08:50)
--- NOTE | 2018-12-05 09:22 | PCM.PN.CARD ---
Subjectve: Patient doing well this morning, no 24-hour events. Telemetry was negative. Right groin is clean/dry/intact. The patient is able to lay down flat without any significant dyspnea however he is on O2 therapy at this time. Hemoglobin stable at 9.0 and creatinine actually improved overnight. Tolerated left and right heart catheterization without any problems. Objective: Vital Signs Temp Pulse Resp BP Pulse Ox 97.6 F L 61 20 H 118/66 96 12/05/18 04:40 12/05/18 07:00 12/05/18 04:40 12/05/18 04:40 12/05/18 04:40 Oxygen Flow Rate (L/min) 1 Oxygen Delivery Method Nasal Cannula Weight: 269 lb 13.533 oz Body Mass Index (BMI) 41.4 Finger Stick Blood Glucose 132 Intake and Output for Last 24 Hours 12/03/18 12/04/18 12/05/18 23:59 23:59 23:59 Intake Total 1100 / 1100 1979 / 1979 360 / 360 Output Total 3175 / 3175 3500 / 3500 1200 / 1200 Balance -2075 / -2075 -1520 / -1520 -840 / -840 General: Awake, Alert, Oriented x 3 HEENT: PERRL, EOMI, Sclera Non Icteric Neck: Supple, Good ROM, No Lymph Node Enlargement Lungs: Clear to auscultation Cardiovascular: Regular Rhythm, Normal S2, No Rubs, No Gallops Murmur Murmur: Grade 3/6, Crescendo-Decrescendo Vascular: No Carotid Bruits, Normal Femoral Pulses, Normal Radial Pulses, Normal Dorsalis Pedal Pulse, Normal Posterior Tibial Pulses Abdomen: Bowel Sounds Present, Soft, Non Tender, No HSM, No Organomegaly Extremities: No Cyanosis, No Clubbing, No edema Neurological: No Focal Motor or Sensory Deficit 12/04/18 09:30: VBG pH 7.36, VBG pO2 31, VBG O2 Sat (Calc) 56, VBG O2 Content 32, VBG Base Excess 5 H 12/04/18 09:33: VBG pH 7.36, VBG pO2 37, VBG O2 Sat (Calc) 68, VBG O2 Content 32, VBG Base Excess 5 H 12/04/18 09:38: pH 7.37, Bicarbonate Actual 30.0 H, POC Total CO2 32, Base Excess 5 H, O2 Saturation 83 L, ABG pCO2 52.2 H, ABG pO2 50 L 12/05/18 05:50: WBC 4.4, RBC 2.70 L, Hgb 9.0 L, Hct 29.0 L, MCV 107.4 H, MCH 33.3 H, MCHC 31.0 L, RDW 18.4 H, RDW Differential 68.4 H, Plt Count 85 L, MPV 12.4 H, Immature Gran % (Auto) 0.700, Neut % (Auto) 63.0, Lymph % (Auto) 19.2, [place] % (Auto) 12.6 H, Eos % (Auto) 4.3, Baso % (Auto) 0.2, Absolute Neuts (auto) 2.8, Total Counted Not Reportable 12/05/18 05:50: Sodium 141, Potassium 4.2, Chloride 104, Carbon Dioxide 30.0, Anion Gap 7, BUN 52 H, Creatinine 1.91 H, Est GFR (MDRD) Af Amer 44 L, Est GFR (MDRD) Non-Af 36 L, BUN/Creatinine Ratio 27.2 H, Glucose 131 H, Calcium 8.0 L Rhythm: EKG: ECHO: Stress Test: Cardiac Cath: PCI: CT Surgery: Holter monitor: EPS: PPM: CXR: Chest CT Scan: Medical Necessity - Tobacco Use Smoking Status: Former smoker Tobacco Use: Non-smoker Assessment/Plan 1. Aortic stenosis: The patient has mild to moderate aortic stenosis with an estimated aortic valve area of 1.4 cm? and a peak/mean gradient of 43 and 24 mmHg. Visual inspection of the aortic valve by myself on the echocardiogram does not appear to show that he requires correction at this time. This was confirmed by left and right heart catheterization yesterday 12/04/18. I do not believe the patient requires aortic valve replacement at this time. Nonetheless the patient had presented with dyspnea, hypoxia, shortness of breath and evidence of lower extremity edema suggesting higher than measured pulmonary pressures based on echocardiogram. This is superimposed upon significant anemia requiring PRBC reperfusion. Recommend keeping the patient's hemoglobin above at least 8.0, and preferably 10.0 and attempt to optimize oxygen carrying capacity. The patient's peak and mean gradients will be affected by anemia, perhaps overestimating their severity. I would not recommend repeat echocardiogram at this time in the face of anemia. Now that the patient's hemoglobin has been stabilized and he has no overt signs of bleeding, patient's left heart catheterization yesterday demonstrated minimal nonobstructive coronary disease and no indication for intervention at this time. Would not recommend Plavix or Brilinta. Would recommend keeping his hemoglobin above 8.0. His pulmonary pressures are mildly elevated. Patient may require chronic O2 therapy going forward. 2. Chronic renal insufficiency: I believe this is the majority of the patient's problem given his chronic renal insufficiency and difficulty with Fluid extraction despite diuretic therapy. Patient's creatinine is actually improved after his catheterization. A total of 30 cc of contrast dye were used.. In addition we will discontinue his IV Lasix given his increasing creatinine, and switch him to Lasix p.o. 80 mg twice daily. Continue spironolactone unless or until the patient becomes hyponatremic or creatinine worsens. This appears to be in place for his cirrhosis. This may be contributing to his edema if he has poor production of albumin causing significant third spacing. 3. Paroxysmal atrial fibrillation: The patient had paroxysmal atrial fibrillation superimposed on his acute respiratory distress. He is back to normal sinus rhythm. Given his anemia I would not recommend anticoagulation at this time. Would not recommend amiodarone given his cirrhosis. 4. Anemia: Recommend continuing PPI therapy and ongoing analysis for possible sources of bleeding. The patient's daughter suggests that he has had a previous EGD and potential polyps in his stomach although this needs to be verified. 5. Thank you very much for the opportunity to participate in the cardiac care of your patient. We will sign off. Please call with any questions. Code Visit Inpatient E&M: 12805 Subs Hosp L2
--- NOTE | 2018-12-05 11:20 | DCINST_ITS ---
- Discharge Diagnoses Current Active Problems: Current Active and Chronic Problems History of left heart catheterization (Chronic 12/04/18) Normal coronary arteries. The patient has pulmonary hypertension which is mild. Right heart pressures - mildly elevated. Medical management of aortic stenosis. Would not recommend asa or plavix given recent anemia. Medical management of afib. Manual sheath removal. Total of 30 ccs of IV contrast dye for limited LHC; NO LV gram performed due to CRI. Acute respiratory failure with hypoxia (Acute) CHF exacerbation (Acute) Morbid obesity (Chronic) You will use the following diet at home:: Cardiac Your food should be the consistency of: Regular Your liquids should be the consistency of: Regular/Thin Discharge Activity: Return to Normal Activity Weight Bearing Status: Weight bearing as tolerated Call your doctor if you observe: Fever of 101 or Higher, Shortness of breath, Swelling in the ankles, Chest pain, Increased palpitations (irregular heartbeat) Instructions: Heart Failure: Evaluating Your Heart, Taking Medication to Control Heart Failure, What Is Heart Failure? Allergies/Adverse Reactions: Allergies No Known Allergies Allergy (Verified 12/01/18 16:49) Medications to take at Discharge Levothyroxine [Synthroid] 25 mcg PO DAILY 11/23/16 Pantoprazole Sodium [Protonix] 40 mg PO DAILY 11/23/16 Rifaximin [Xifaxan] 550 mg PO BID 11/23/16 Simvastatin [Zocor] 20 mg PO DAILY 11/23/16 Ferrous Sulfate 325 mg PO DAILY 10/05/17 Desoximetasone 0.25% [Topicort Crm 0.25%] 1 applic TOPICAL DAILY 04/04/18 Albuterol IH (ProAir) [Proair Hfa] 1 puff INHALATION Q6H PRN PRN #1 inhaler 11/04/18 Insulin Glargine [Lantus SoloStar Pen] 25 units SC BID 12/01/18 Insulin Lispro [Humalog KwikPen] 12 unit SQ BREAKFAST 12/01/18 Insulin Lispro [Humalog KwikPen] 15 units SQ DINNER 12/01/18 Insulin Lispro [Humalog KwikPen] 24 units SQ LUNCH 12/01/18 Lactulose [Constulose] 30 ml PO BID 12/01/18 Multivit-Min/FA/Lycopen/Lutein [Centrum Silver Men Tablet] 1 each PO DAILY 12/01/18 Nadolol [Corgard (Beta Reggie)] 40 mg PO DAILY 12/01/18 Psyllium Husk [Metamucil] 0.4 gm PO QHS 12/01/18 Spironolactone 100 mg PO DAILY 12/01/18 Furosemide [Lasix] 80 mg PO BID@1000,1800 #60 tablet 12/05/18 The following prescriptions were given: Furosemide [Lasix] 80 mg PO BID@1000,1800 #60 tablet Primary Care Physician: Kayla Bernstein NP-C [Primary Care Provider] - Please follow up with your Primary Care Physician in: one week Test Results: Test results from this visit will be discussed in further detail at your follow- up appointment, if applicable. Please Follow Up With: Ronald Jones MD When: 1-2 weeks Proposed Discharge Date: 12/05/18
--- NOTE | 2018-12-05 11:20 | PCM.DC.SUM ---
Discharge Date and Diagnosis - Problem List Patient Problems: Active and Suspected Problems Acute respiratory failure with hypoxia (Acute) CHF exacerbation (Acute) Date of Admission: 12/01/18 Date of Discharge: 12/05/18 - Primary Discharge Diagnosis Active and Suspected Problems Acute respiratory failure with hypoxia (Acute) Acute diastolic CHF exacerbation (Acute) elevated troponins acute on chronic anemia acute hypoxic respiratory failure due to acute on chronic diastolic heart failure - Secondary Discharge Diagnosis Chronic Problems History of left heart catheterization (Chronic 12/04/18) Normal coronary arteries. The patient has pulmonary hypertension which is mild. Right heart pressures - mildly elevated. Medical management of aortic stenosis. Would not recommend asa or plavix given recent anemia. Medical management of afib. Manual sheath removal. Total of 30 ccs of IV contrast dye for limited LHC; NO LV gram performed due to CRI. Morbid obesity (Chronic) Aortic stenosis (Chronic) Chronic anemia (Chronic) Type 2 diabetes mellitus (Chronic) Hyperlipidemia (Chronic) Liver cirrhosis (Chronic) Chronic kidney disease, stage III (moderate) (Chronic) CKD (chronic kidney disease) (Chronic) HTN (hypertension) (Chronic) Hospital Course and Treatment Operations: None Procedures: Cardiac catheterization Summary of Care Provided: The patient is a 78 year old M with past medical history as listed. He was admitted through the ED on 12/01/2018 with a complaint of sudden onset shortness of breath which was worsened by exertion with assisted orthopnea and recent weight gain. His Lasix had recently been decreased from a twice daily dose to daily dosing account of worsening renal function. When his son checked his saturation at home he was saturating at 65% on room air. He was brought to the ED and chest x-ray done showed pulmonary edema versus mid left lower base atelectasis and EKG showed questionable atrial fibrillation. BNP was elevated at 971. He was admitted and managed for acute hypoxemic respiratory failure due to CHF exacerbation as well as acute diastolic heart failure exacerbation.. He was started on IV Lasix 40 mg twice daily and also given a dose of therapeutic Lovenox on account of questionable diagnosis of A. fib. Patient remained in sinus rhythm subsequently afterwards. He was started on IV vancomycin and Zosyn also for possible pneumonia. Per Echo Done in October 2018, he had EF of 60% with mild concentric left ventricular hypertrophy and no regional wall motion abnormalities. Patient subsequently developed a drop in hemoglobin from 8.7 on admission to 7.1. He had a history of chronic anemia for which he was following up with hematology and no clear cause has been found for his anemia. He was noted to be transfusion dependent. He was transfused with 2 units of packed red blood cells. Lovenox was DC'd as patient remained in sinus rhythm throughout admission. Troponins were mildly elevated and was initially 0.076 and peaked at 0.096. Patient also complained of chest pain with onset of symptoms before admission. Cardiology was therefore consulted and he was started on aspirin and statin. He had a cardiac cath on 12/04/2018 which showed clean coronaries. Nephrology was consulted on account of CKD and also contrast initiation during cath. Patient and family were counseled about possibility of hospice care but they refused and patient wanted to remain full code. Patient had only a total of 30 cc of dye administered during cardiac cath. Creatinine actually improved the day after the cath and trended down to about 1.8. He remained stable. On day of discharge, patient's ambulatory pulse ox was checked and he was saturating at 92% on room air with ambulation therefore he did not qualify for oxygen. He was discharged home and his Lasix dose was increased to 80 mg twice daily. He is to follow-up with his primary care doctor, cardiology and nephrology. He was also counseled to comply with a low-salt diet and to be compliant with his medication. Patient seen and examined prior to discharge. He had no complaints and felt well. Review of systems is otherwise negative. Labs and vitals reviewed. Home medication reviewed and reconciled. o/e: Vital Signs Height 5 ft 8 in Weight: 269 lb 13.533 oz Weight in Pounds 269.8 lbs Pulse Ox 94 Temperature 96.6 F Pulse Rate 60 Respiratory Rate 18 Blood Pressure 109/54 Blood Pressure Position Sitting [] General: Alert, Oriented x3, Cooperative, Lethargic HEENT: Atraumatic, PERRLA, EOMI, Normocephalic Oral: Dry Mucosa Neck: Supple, No JVD, Negative Carotid Bruits Lungs: - - clear to auscultation, on room air. Cardiovascular: Regular rate, Regular Rhythm, Normal S1, Normal S2, No murmurs Abdomen: Bowel Sounds Present, Soft, Non Tender, Non-Distended Extremities: No clubbing, No cyanosis, - - 1+ bipedal pitting edema of LEs and UEs. Skin: No rashes, No breakdown Musculoskeletal: No Tenderness to Palpation of Joints or Extremities Lymphatic: No Cervical, Supraclavicular, or Inguinal Adenopathy Neurological: Cranial nerves II-XII grossly intact, Neuro grossly intact, Motor Exam 5/5 strength throughout Psych/Mental Status: Normal Affect, Appropriate, Alert and oriented to time, place, person, mood and affect Patient Problems: Active and Suspected Problems Acute respiratory failure with hypoxia (Acute) CHF exacerbation (Acute) - Physical Exam Vital Signs Temp Pulse Resp BP Pulse Ox 98.1 F 62 18 122/64 H 92 12/05/18 09:00 12/05/18 10:49 12/05/18 09:00 12/05/18 09:00 12/05/18 09:00 Oxygen Flow Rate (L/min) 1 Oxygen Delivery Method Room Air Weight: 269 lb 13.533 oz Body Mass Index (BMI) 41.4 Finger Stick Blood Glucose 132 Intake and Output for Last 24 Hours 12/03/18 12/04/18 12/05/18 23:59 23:59 23:59 Intake Total 1100 / 1100 1979 / 1979 360 / 360 Output Total 3175 / 3175 3500 / 3500 1200 / 1200 Balance -2075 / -2075 -1520 / -1520 -840 / -840 Microbiology Past 72 Hours 12/01/18 16:15 Blood Culture - Preliminary Blood Culture (Wb) - Anticubital Right No growth in 48 hours. 12/01/18 16:20 Blood Culture - Preliminary Blood Culture (Wb) - Anticubital Left No growth in 48 hours. 12/03/18 13:40 Stool Occult Blood (JAMES) - Final Stool Occult Blood Positive Laboratory Tests Past 24 Hrs 12/05/18 12/05/18 05:50 05:50 WBC 4.4 RBC 2.70 L Hgb 9.0 L Hct 29.0 L MCV 107.4 H MCH 33.3 H MCHC 31.0 L RDW 18.4 H RDW Differential 68.4 H Plt Count 85 L MPV 12.4 H Immature Gran % (Auto) 0.700 Neut % (Auto) 63.0 Lymph % (Auto) 19.2 Petroleum % (Auto) 12.6 H Eos % (Auto) 4.3 Baso % (Auto) 0.2 Absolute Neuts (auto) 2.8 Absolute Lymphs (auto) 0.84 Total Counted Not Reportable Differential Comment SCAN Polychromasia 1+ Anisocytosis 1+ Macrocytosis 1+ Sodium 141 Potassium 4.2 Chloride 104 Carbon Dioxide 30.0 Anion Gap 7 BUN 52 H Creatinine 1.91 H Estim Creat Clear Calc 30.34 Est GFR (MDRD) Af Amer 44 L Est GFR (MDRD) Non-Af 36 L BUN/Creatinine Ratio 27.2 H Glucose 131 H Calcium 8.0 L POC Glucose 12/05/18 12/04/18 12/04/18 06:58 22:40 16:35 POC Glucose 132 H 121 H 225 H 12/04/18 11:09 POC Glucose 127 H Discharge Diet: Low fat/ Low Cholesterol, 2000 mg Sodium Diet Discharge Activity: Return to Normal Activity Weight Bearing Status: Weight bearing as tolerated Call your doctor if you observe: Fever of 101 or Higher, Shortness of breath, Swelling in the ankles, Chest pain, Increased palpitations (irregular heartbeat) Home Medications: Medications to take at Discharge Levothyroxine [Synthroid] 25 mcg PO DAILY 11/23/16 Pantoprazole Sodium [Protonix] 40 mg PO DAILY 11/23/16 Rifaximin [Xifaxan] 550 mg PO BID 11/23/16 Simvastatin [Zocor] 20 mg PO DAILY 11/23/16 Ferrous Sulfate 325 mg PO DAILY 10/05/17 Desoximetasone 0.25% [Topicort Crm 0.25%] 1 applic TOPICAL DAILY 04/04/18 Albuterol IH (ProAir) [Proair Hfa] 1 puff INHALATION Q6H PRN PRN #1 inhaler 11/04/18 Insulin Glargine [Lantus SoloStar Pen] 25 units SC BID 12/01/18 Insulin Lispro [Humalog KwikPen] 12 unit SQ BREAKFAST 12/01/18 Insulin Lispro [Humalog KwikPen] 15 units SQ DINNER 12/01/18 Insulin Lispro [Humalog KwikPen] 24 units SQ LUNCH 12/01/18 Lactulose [Constulose] 30 ml PO BID 12/01/18 Multivit-Min/FA/Lycopen/Lutein [Centrum Silver Men Tablet] 1 each PO DAILY 12/01/18 Nadolol [Corgard (Beta Reggie)] 40 mg PO DAILY 12/01/18 Psyllium Husk [Metamucil] 0.4 gm PO QHS 12/01/18 Spironolactone 100 mg PO DAILY 12/01/18 Furosemide [Lasix] 80 mg PO BID@1000,1800 #60 tablet 12/05/18 Ipratropium/Albuterol Sulfate [Duoneb] 3 ml INHALATION Q6H.RT #30 ampul.neb 12/05/18 Following Prescrptions Were Given to Patient: Ipratropium/Albuterol Sulfate [Duoneb] 3 ml INHALATION Q6H.RT #30 ampul.neb Furosemide [Lasix] 80 mg PO BID@1000,1800 #60 tablet Primary Care Physician: Kayla Bernstein NP-C [Primary Care Provider] - Please follow up with your Primary Care Physician in: one week Please Follow Up With: Ronald Jones MD When: 1-2 weeks Please Follow Up With: Jocelyn Ball DO When: one week Patient Instructions: Taking Medication to Control Heart Failure, What Is Heart Failure?, Heart Failure: Evaluating Your Heart Disposition: Home Minutes spent on discharge:: 55 Patient Condition:: Stable Medical Necessity - Tobacco Use Smoking Status: Former smoker Tobacco Use: Non-smoker Meaningful Use Info Meaningful Use Diagnoses (Choose all that apply): CHF - CHF CHRISTIANO/ARB ordered at discharge?: No Reason CHRISTIANO/ARB not ordered?: Worsening renal disease Documented LVEF (%): 60 Code Visit Inpatient E&M: 06717 Disch Hosp
[2018-12-05 11:45] LABS: Bedside Glucose 191 mg/dL (70-110)
[2018-12-05] MEDS: Spironolactone 50 MG Tablet 100 MG PO (12:31)
[2018-12-05] MEDS: Insulin Lispro 100 UNIT/ML INSULN.PEN 24 UNIT SC (12:32)
--- NOTE | 2018-12-07 15:51 | CASEMGMT ---
CHALO ALLRED Discharge F/U Phone Call LACE: 13 Strata: 4 Discharge date: 12/05/18 Call date: 12/07/18 Call time: [phone] Attempted to reach pt without success at this time and only contact number in chart is for pt's daughter at this time. This CHALO ALLRED did not leave message for pt on daughter's phone at this time. Will attempt to reach pt another time. SStaten RN CM Admission dx: CHF, Resp failure, pna
--- NOTE | 2018-12-08 14:14 | CASEMGMT ---
RN BRIGIDA NOTE: Attempted discharge follow-up call. No answer. Phone number provided is pt's daughter, Katie's number. Did not leave a message re: pt at this time. Kellee ANDREA RN CM
--- NOTE | 2018-12-24 14:52 | CCN.REFER ---
PATIENT/PATIENT FAMILY WOULD NOT RETURN CCN CALLS. LEFT MESSAGES WITH 12/15, 12/17, AND 12/21. DETAILED CCN INFORMATION LEFT ON VOICEMAIL.
== END 2018-12-05 16:42 | disposition home or self-care (01) | DRG 286 ==
LOC: ED 17:37 → PCU 20:55
PROVIDERS: Internal Medicine Cardiovascular Disease; Admitting Provider Family Medicine; Emergency Provider Emergency Medicine; Family Provider Nurse Practitioner Family; PCP Nurse Practitioner Family; Visit Provider Student in an Organized Health Care Education/Training Program
DX: I13.0 Hypertensive heart and chronic kidney disease with heart failure and stage 1 through stage 4 chronic kidney disease, or unspecified chronic kidney disease (principal); J96.01 Acute respiratory failure with hypoxia; I50.33 Acute on chronic diastolic (congestive) heart failure; Z68.41 Body mass index [BMI] 40.0-44.9, adult; E66.01 Morbid (severe) obesity due to excess calories; D69.6 Thrombocytopenia, unspecified; E11.22 Type 2 diabetes mellitus with diabetic chronic kidney disease; I27.20 Pulmonary hypertension, unspecified; D64.9 Anemia, unspecified; N18.3 Chronic kidney disease, stage 3 (moderate); E03.9 Hypothyroidism, unspecified; I35.0 Nonrheumatic aortic (valve) stenosis; E78.5 Hyperlipidemia, unspecified; K74.60 Unspecified cirrhosis of liver; Z79.4 Long term (current) use of insulin; Z87.891 Personal history of nicotine dependence; J44.9 Chronic obstructive pulmonary disease, unspecified
CPT/HCPCS: 36415; 71045; 71046; 80048; 80053; 80061; 81001; 82140; 82274; 82728; 82803; 82962; 83540; 83550; 83605; 83735; 83880; 84439; 84443; 84484; 85025; 85610; 85730; 86850; 86900; 86920; 86922; 87040; 93005; 93456; 94002; 94003; 94640; 97116; 97163; 97166; 97530; 97535; 97802; 99285; J7030; J7040; P9016; A4216; C1751; C1769; C1894; J1940; J2405; Q9967

== ENCOUNTER → 2018-12-30 11:14 | Outpatient (CLI) | payer MEDICARE, SELFPAY ==
[2018-12-18 08:13] VITALS: BMI 38.7
[2018-12-30 12:42] LABS: International Normalized Ratio 1.4; Partial Thromboplast Time 36.6 Seconds (24.1-36.2); Prothrombin Time (Protime)PT. 17.2 SECONDS (11.7-14.9)
[2018-12-30 13:06] LABS: ALB/GLOB Ratio 0.7 RATIO (0.9-2.4); AST(SGOT) 20 U/L (15-37); Alanine Aminotransfer ALT/SGPT 20 U/L (16-61); Albumin, Serum 3.4 g/dL (3.2-5.0); Alkaline Phosphatase 64 U/L (45-117); Anion Gap 1 (5-15); BUN 40 mg/dL (7-18); BUN/Creat Ratio 22.2 RATIO (10-20); Calcium,Total 8.5 mg/dL (8.5-10.1); Chloride 102 mmol/L (98-107); EST Glomerular Filtration Rate 39 mL/min (>60); Est Glom Filt Rate - Afr Amer 47 mL/min (>60); Globulin 4.9 g/dL (2.2-4.2); Glucose 208 mg/dL (74-106); Potassium 3.5 mmol/L (3.5-5.1); Protein, Total 8.3 g/dL (6.4-8.2); Sodium Level 136 mmol/L (136-145)
[2018-12-31 15:28] LABS: AFP, Tumor Marker 3.9 ng/mL (0.0-8.3)
== END ==
PROVIDERS: Family Provider Nurse Practitioner Family; PCP Nurse Practitioner Family; Referring Provider Internal Medicine Gastroenterology; Visit Provider Internal Medicine Gastroenterology
DX: K74.60 Unspecified cirrhosis of liver (principal)
CPT/HCPCS: 36415; 80053; 82105; 85610; 85730

== ENCOUNTER → 2019-01-05 09:11 | Outpatient (CLI) | payer MEDICARE, SELFPAY ==
[2018-12-01 21:58] VITALS: BMI 41.4
[2018-12-18 08:13] VITALS: BMI 38.7
== END ==
PROVIDERS: Family Provider Nurse Practitioner Family; PCP Nurse Practitioner Family; Referring Provider Internal Medicine Cardiovascular Disease; Visit Provider Internal Medicine Cardiovascular Disease
DX: R06.00 Dyspnea, unspecified (principal); J90 Pleural effusion, not elsewhere classified; R09.02 Hypoxemia; N18.3 Chronic kidney disease, stage 3 (moderate)

== ENCOUNTER → 2019-01-07 11:02 | Outpatient (CLI) | payer MEDICARE, SELFPAY ==
[2018-12-18 08:13] VITALS: BMI 38.7
--- NOTE | 2019-01-07 11:04 | MRI_ITS ---
HISTORY: cirrhosis. No abdomen pain EXAMINATION: MR Abdomen WO/W Contrast TECHNIQUE: Multiplanar and multisequence MR images of the abdomen were obtained. IV Contrast dosage and agent: dotarem COMPARISON: CT abdomen and pelvis 01/01/[address] chest 10/31/2018 FINDINGS: LOWER CHEST: Bilateral pleural effusions evident by CT chest exam in October 2018 have resolved. The liver is upper normal in size and shows fatty infiltration. No focal hepatic lesion, pathologic enhancement, or biliary dilatation. Normal gallbladder. The spleen is borderline enlarged measuring 12.8 cm in length. No focal splenic lesion. Atrophic pancreas with chronic appearing mild dilatation of the pancreatic duct within the body and tail regions. The pancreatic duct measures up to 4 mm. No pseudocyst or peripancreatic inflammatory changes. Both kidneys are normal in position. Bilateral benign appearing renal cortical cysts. The largest cyst measures 3.9 cm in maximal dimension at the lower pole of the left kidney. With contrast injection, no hydronephrosis or suspicious renal lesion. The adrenal glands are not enlarged. Abdominal aorta is normal in caliber. Patent IVC. No ascites or retroperitoneal lymph node enlargement. GI tract: No bowel obstruction. Pelvic MR scanning not performed. MRI/MRI Abd WITH and W/O Contrast IMPRESSION: 1. No ascites, acute disease, or suspicious lesion. 2. Fatty liver infiltration and borderline splenomegaly. Atrophic pancreas. 3. Previously seen bilateral pleural effusions have resolved. at 0822 Reported and signed by: Corbin Dyson MD Electronically Signed: Corbin Dyson, at 8:21 EDT Tel , Service support ,
== END ==
PROVIDERS: Family Provider Nurse Practitioner Family; PCP Nurse Practitioner Family; Referring Provider Internal Medicine Gastroenterology; Visit Provider Internal Medicine Gastroenterology
DX: K74.60 Unspecified cirrhosis of liver (principal)
CPT/HCPCS: 74183; A9575

== ENCOUNTER 2019-01-11 06:34 | Emergency (ER) | payer MEDICARE, SELFPAY ==
[2018-12-18 08:13] VITALS: BMI 38.7
[2019-01-11] VITALS (10 sets, daily range): BP systolic 79–119; BP diastolic 33–59; PULSE 58–66; RESP 17–21; TEMP 36.4–36.7; O2SAT 95–100; BMI 40.7
--- NOTE | 2019-01-11 06:54 | RAD_ITS ---
STUDY: X-RAY CHEST REASON FOR EXAM: Male, 78 years old. Low back pain. Cough. History of fall. TECHNIQUE: AP portable chest. COMPARISON: December 02, 2018. FINDINGS: The lungs are clear and expanded. There is no demonstrated pleural abnormality. There is stable mild cardiomegaly. Normal mediastinum and jeannine. Normal visualized pulmonary arteries. Normal visualized aortic arch and descending thoracic aorta. Mild degenerative changes of the thoracic spine. Normal visualized ribs, clavicles, and shoulders. There is no demonstrated abnormality of the visualized soft tissue structures of the upper abdomen. RAD/Chest 1 View (Portable) IMPRESSION: Stable cardiomegaly. Electronically Signed: Chago Velez MD at 7:39 EDT , Service support ,
--- NOTE | 2019-01-11 06:54 | CT_ITS ---
STUDY: CT BRAIN WITHOUT CONTRAST REASON FOR EXAM: Male, 78 years old. Fall. Loss of consciousness. Weakness. RADIATION DOSAGE (If Supplied By Facility): CTDIvol = ( 44.99 ) mGy, DLP = ( 812.98 ) mGycm TECHNIQUE: Transaxial CT imaging of the brain was performed without administration of intravenous contrast material. Individualized dose optimization techniques were used for this CT. COMPARISON: October 05, 2017. FINDINGS: Normal soft tissue structures. Normal calvarium. Normal size ventricles and extra-axial spaces for the patient's age. Normal white matter tracts of the cerebral hemispheres. Normal basal ganglia and thalami. Normal brainstem. Normal cerebellum. There is no intracranial hemorrhage. There are no findings of an acute ischemic infarction. Normal visualized paranasal sinuses. CT/Brain/Head without Contrast IMPRESSION: Normal unenhanced CT scan of the brain for the patient's age. Electronically Signed: Chago Velez MD at 7:43 EDT , Service support ,
--- NOTE | 2019-01-11 06:55 | EKG12_ITS ---
Test Reason : WEAKNESS Blood Pressure : / mmHG Vent. Rate : 061 BPM Atrial Rate : 061 BPM P-R Int : 176 ms QRS Dur : 088 ms QT Int : 448 ms P-R-T Axes : 057 028 029 degrees QTc Int : 450 ms Normal sinus rhythm Normal ECG Confirmed by JOSE A MCCONNELL, RONIT ([id number]), material expeditor JUS GONZALES ([id number]) on 01/14/2019 1:13:03 PM Referred By: CONY Confirmed By:RONIT NARANJO MD
--- NOTE | 2019-01-11 06:57 | ED.VISSUMM ---
- ER Visit Summary Date of Service: 01/11/19 Chief Complaint: Syncope History of Present Illness: The patient is a 78 M who presents with a syncopal episode that occurred this morning. Patient states she was on the toilet and after he got up and was walking back to his bed he had a syncopal episode. Patient states he did have some black tarry stools with his bowel movement this morning. Patient denies any chest pain or shortness of breath. Patient was able to ambulate after the fall. Patient cut his right wrist area on his nightstand. Patient does not think he hit his head. Patient admits to some nausea and diarrhea but denies any vomiting. Patient denies any abdominal pain. Patient does admit to some hematuria. Physical Examination: Vital signs are stable. Patient is afebrile. Patient is in no acute distress. Pupils are equal, round, and reactive to light bilaterally. Extraocular muscles are intact. Conjunctiva is pale. Skin is pale. Oral mucosa is pink and moist. Neck is supple. Trachea is midline. There is no JVD noted. Heart was regular rate and rhythm. Lungs are clear and equal bilaterally. Abdomen is soft. Bowel sounds are normal. There is no tenderness. There is a large amount of blood noted in the perirectal area. Cranial nerves II through XII are intact. There are no focal motor or sensory deficits noted. There is a superficial linear abrasion across the right wrist area. There is no gapping of the wound margins. There is no active bleeding noted. Test Results: EKG showed normal sinus rhythm with a rate of 61. There are no acute ST or T wave changes noted. CBC showed a hemoglobin of 7.3. Creatinine was 2.12. BUN was 50. Troponin was normal. CT scan of the brain was obtained and is pending. Chest x-ray was obtained and is pending. PT with INR was obtained and is pending. Type and crossmatch for 1 unit of blood was ordered. Emergency Department Course and Treatment: Patient was given IV fluids. Patient was typed and crossmatched for 1 unit of packed red blood cells. Disposition: Care of the patient was turned over to the oncoming physician. Patient will likely need to be transferred to tertiary care facility. Impression: Gastrointestinal bleeding This note was generated with [employer] dictation software. It may contain incorrect words, spelling, and punctuation that were not noted in review of the chart prior to signing ED Disposition - Plan for ED Patient: Diagnosis: Gastrointestinal bleeding, Syncope Referrals: Kayla Bernstein, NAILA-C [Primary Care Provider] -
[2019-01-11 07:18] LABS: Absolute Lymphocyte Count 1.55 X10^3/ul (0.83-4.51); Absolute Neutrophil Count 6.2 X10^3/uL (2.0-7.7); Basophil# 0.02 X10^3/uL; Basophil% 0.2 % (0-1); Eosinophil# 0.28 X10^3/uL; Eosinophils% 3.1 % (0-5); Hematocrit 22.7 % (40-54); Hemoglobin 7.3 g/dl (13.0-16.5); Lymphocyte # 1.55 X10^3/ul (4.0); Lymphocyte % 17.2 % (19-41); Mean Corp Hgb Conc 32.2 g/gl (32-36); Mean Corpuscular Hgb 34.3 pg (27.0-32.0); Mean Corpuscular Volume 106.6 fL (80-94); Mean Platelet Vol. 12.8 fl (6.2-12.0); Monocyte# 0.95 X10^3/uL; Monocyte% 10.5 % (0-10); Neutrophil # 6.15 X10^3/uL (2.7-7.7); Neutrophil % 68.3 % (47-70); Platelet Count 100 K/mm3 (150-450); RBC Distribution Width CV 18.5 % (11.6-14.6); RBC Distribution Width SD 71.7 fl (35.1-43.9); Red Blood Count 2.13 M/mm3 (4.6-6.2)
[2019-01-11 07:23] LABS: Differential Indicated SCAN CRITERIA MET; POSITIVE COUNT NO; POSITIVE DIFFERENTIAL NO; POSITIVE MORPHOLOGY YES
[2019-01-11 07:26] LABS: ALB/GLOB Ratio 0.6 RATIO (0.9-2.4); AST(SGOT) 35 U/L (15-37); Alanine Aminotransfer ALT/SGPT 21 U/L (16-61); Albumin, Serum 2.7 g/dL (3.2-5.0); Alkaline Phosphatase 52 U/L (45-117); Anion Gap 7 (5-15); BUN 50 mg/dL (7-18); BUN/Creat Ratio 23.6 RATIO (10-20); Calcium,Total 7.9 mg/dL (8.5-10.1); Chloride 107 mmol/L (98-107); Creatinine, Serum 2.12 mg/dL (0.70-1.30); EST Glomerular Filtration Rate 32 mL/min (>60); Est Glom Filt Rate - Afr Amer 39 mL/min (>60); Estimated Creatinine Clearance 28.25 ml/min; Globulin 4.2 g/dL (2.2-4.2); Glucose 199 mg/dL (74-106); Potassium 5.1 mmol/L (3.5-5.1); Protein, Total 6.9 g/dL (6.4-8.2); Sodium Level 142 mmol/L (136-145)
--- NOTE | 2019-01-11 07:36 | ED.DCSUM_ITS ---
- ER Visit Summary Date of Service: 01/11/19 Chief Complaint: Syncope History of Present Illness: The patient is a 78 M who presents with a syncopal episode that occurred this morning. Patient states she was on the toilet and after he got up and was walking back to his bed he had a syncopal episode. Patient states he did have some black tarry stools with his bowel movement this morning. Patient denies any chest pain or shortness of breath. Patient was able to ambulate after the fall. Patient cut his right wrist area on his nightstand. Patient does not think he hit his head. Patient admits to some nausea and diarrhea but denies any vomiting. Patient denies any abdominal pain. Patient does admit to some hematuria. Physical Examination: Vital signs are stable. Patient is afebrile. Patient is in no acute distress. Pupils are equal, round, and reactive to light bilat erally. Extraocular muscles are intact. Conjunctiva is pale. Skin is pale. Oral mucosa is pink and moist. Neck is supple. Trachea is midline. There is no JVD noted. Heart was regular rate and rhythm. Lungs are clear and equal bilaterally. Abdomen is soft. Bowel sounds are normal. There is no tenderness. There is a large amount of blood noted in the perirectal area. Cranial nerves II through XII are intact. There are no focal motor or sensory deficits noted. There is a superficial linear abrasion across the right wrist area. There is no gapping of the wound margins. There is no active bleeding noted. Test Results: EKG showed normal sinus rhythm with a rate of 61. There are no acute ST or T wave changes noted. CBC showed a hemoglobin of 7.3. Creatinine was 2.12. BUN was 50. Troponin was normal. CT scan of the brain was obtained and is pending. Chest x-ray was obtained and is pending. PT with INR was obtained and is pending. Type and crossmatch for 1 unit of blood was ordered. Emergency Department Course and Treatment: Patient was given IV fluids. Patient was typed and crossmatched for 1 unit of packed red blood cells. Disposition: Care of the patient was turned over to the oncoming physician. Patient will likely need to be transferred to tertiary care facility. Impression: Gastrointestinal bleeding This note was generated with [employer] dictation software. It may contain incorrect words, spelling, and punctuation that were not noted in review of the chart prior to signing ED Disposition - Plan for ED Patient: Diagnosis: Gastrointestinal bleeding, Syncope Referrals: Kayla Bernstein NP-C [Primary Care Provider] -
[2019-01-11 07:49] LABS: International Normalized Ratio 1.7; Prothrombin Time (Protime)PT. 19.4 SECONDS (11.7-14.9)
[2019-01-11 07:50] LABS: Partial Thromboplast Time 36.5 Seconds (24.1-36.2)
[2019-01-11] MEDS: 0.9% Normal Saline 1,000 ML 999 ML IV ×2 (07:50→08:40)
--- NOTE | 2019-01-11 08:26 | ED.VISSUMM ---
- ER Visit Summary Date of Service: 01/11/19 Patient was checked out to me by the nighttime physician. Mr. Meza is a 78-year-old male who has a history of stage III chronic renal disease, paroxysmal atrial fibrillation, diabetes, hypertension, hypercholesterolemia, chronic anemia (followed by Dr. Oliveira), and liver cirrhosis with ascites (followed by Dr. Felipe Bowman). On December 04 he had a heart catheterization that showed angiographically normal coronary arteries and elevated right heart pressures. He had an echocardiogram on November 01 of this year which demonstrated moderate nonrheumatic aortic stenosis and ejection fraction of 60%. Patient had a hemoglobin on 516 that was at 9.4. Today 4 days later he is at 7.3. He had a syncopal episode during bowel movement this morning. He notes he has been having black stool. He has had a ced bloody bowel movements here in the department. Patient became hypotensive after return from the CT scanner. CT brain was negative. Chest x-ray negative. Troponin negative. Creatinine at 2. Patient received IV fluids. He was typed and crossed for 1 unit. He was given Rocephin and Protonix. He also received vitamin K and octreotide. 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 There was no documented esophageal varices. 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 Patient had colonoscopy on 08/24/2018 that mistreated no bleeding, no large polyps, no hemorrhoids and no diverticulosis. Patient's family has requested transfer to [facility] facilities. I contacted [facility]. He has been accepted to ICU by Dr. Munguia. Blood pressure is improving. Impression: 1. Acute gastrointestinal hemorrhage 2. Hypovolemic shock 3. Liver cirrhosis with ascites 4. Anemia requiring transfusion 5. Chronic renal disease stage III 6. Critical care time 35 minutes This note was generated with [employer] dictation software. It may contain incorrect words, spelling, and punctuation that were not noted in review of the chart prior to signing ED Disposition - Plan for ED Patient: Diagnosis: Gastrointestinal bleeding, Syncope Referrals: Kayla Bernstein NP-C [Primary Care Provider] -
[2019-01-11] MEDS: Ceftriaxone 1 GM/50 ML BAG IV (08:27)
--- NOTE | 2019-01-11 08:31 | ED.DCSUM_ITS ---
- ER Visit Summary Date of Service: 01/11/19 Patient was checked out to me by the nighttime physician. Mr. Meza is a 78-year-old male who has a history of stage III chronic renal disease, paroxysmal atrial fibrillation, diabetes, hypertension, hypercholesterolemia, chronic anemia (followed by Dr. Oliveira), and liver cirrhosis with ascites (followed by Dr. Felipe Bowman). On December 04 he had a heart catheterization that showed angiographically normal coronary arteries and elevated right heart pressures. He had an echocardiogram on November 01 of this year which demonstrated moderate nonrheumatic aortic stenosis and ejection fraction of 60%. Patient had a hemoglobin on 516 that was at 9.4. Today 4 days later he is at 7.3. He had a syncopal episode during bowel movement this morning. He notes he has been having black stool. He has had a ced bloody bowel movements here in the department. Patient became hypotensive after return from the CT scanner. CT brain was negative. Chest x-ray negative. Troponin negative. Creatinine at 2. Patient received IV fluids. He was typed and crossed for 1 unit. He was given Rocephin and Protonix. He also received vitamin K and octreotide. 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 There was no documented esophageal varices. 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 Patient had colonoscopy on 08/24/2018 that mistreated no bleeding, no large polyps, no hemorrhoids and no diverticulosis. Patient's family has requested transfer to [facility] facilities. I contacted [facility]. He has been accepted to ICU by Dr. Munguia. Blood pressure is improving. Impression: 1. Acute gastrointestinal hemorrhage 2. Hypovolemic shock 3. Liver cirrhosis with ascites 4. Anemia requiring transfusion 5. Chronic renal disease stage III 6. Critical care time 35 minutes This note was generated with [employer] dictation software. It may contain incorrect words, spelling, and punctuation that were not noted in review of the chart prior to signing ED Disposition - Plan for ED Patient: Diagnosis: Gastrointestinal bleeding, Syncope Referrals: Kayla Bernstein NP-C [Primary Care Provider] -
[2019-01-11 08:35] LABS: Lactic Acid 1.9 mmol/L (0.4-2.0)
--- NOTE | 2019-01-11 08:45 | NURSING ---
FAXED FACESHEET TO [facility]
--- NOTE | 2019-01-11 10:06 | NURSING ---
[facility] ICU 4592 NURSE TO NURSE [phone]
[2019-01-11 10:35] LABS: Mucous, Urine 0 SEEN /hpf (<or=2+)
[2019-01-11 10:37] LABS: Color, Urine Yellow (Yellow); Glucose, Dipstick Normal (Normal); Ketone-Dipstick Negative (Negative); Leukocyte Esterase-Dipstick 100 /ul (Negative); Nitrite-Dipstick Negative (Negative); Occult Blood-Urine Negative /ul (Negative); Protein-Dipstick Negative (Negative); Specific Gravity, Urine 1.015 (1.002-1.030); Urine Bilirubin Dipstick Negative (Negative); Urine Clarity Sl. Cloudy (Clear); Urine Urobilinogen Normal (Normal)
--- NOTE | 2019-01-11 10:40 | NURSING ---
1017 CALLED [facility] TO ARRIVE ABOUT 30 MIN. BASED IN [place]
[2019-01-11] MEDS: Octreotide 0.1 MG/ML ML 0.05 MG IV (10:42)
[2019-01-11 10:43] LABS: Bacteria 1+ /hpf (None Seen); Red Blood Cells-Urine 0-5 SEEN /hpf (0-5); Squamous Epithelial Cells - UA 0-5 SEEN /hpf (0-5); White Blood Cells 25-50 SEEN /hpf (0-5)
[2019-01-11 10:47] LABS: Absolute Nucleated RBC Count 0.06 10^3/uL (0-5); NRBC Flagged by Analyzer 0.7 % (0-5)
--- NOTE | 2019-01-11 11:30 | ED.RN ---
PT TRANSFER PRIOR TO COMPLETION OF INFUSION. INFUSION CONTINUED UPON TRANSFER WITH [facility].
== END 2019-01-11 11:18 | disposition short-term general hospital (02) ==
PROVIDERS: Emergency Medicine; Emergency Provider Emergency Medicine; Family Provider Nurse Practitioner Family; PCP Nurse Practitioner Family
DX: K92.2 Gastrointestinal hemorrhage, unspecified (principal); R57.1 Hypovolemic shock; R55 Syncope and collapse; R19.7 Diarrhea, unspecified; R31.9 Hematuria, unspecified; E11.22 Type 2 diabetes mellitus with diabetic chronic kidney disease; N18.3 Chronic kidney disease, stage 3 (moderate); S60.811A Abrasion of right wrist, initial encounter; W19.XXXA Unspecified fall, initial encounter; Y93.01 Activity, walking, marching and hiking; Y92.9 Unspecified place or not applicable; Y99.9 Unspecified external cause status; Z87.01 Personal history of pneumonia (recurrent); Z79.4 Long term (current) use of insulin; Z79.899 Other long term (current) drug therapy; Z95.1 Presence of aortocoronary bypass graft
CPT/HCPCS: 70450; 71045; 80053; 81001; 83605; 84484; 85025; 85610; 85730; 86850; 86900; 86920; 86922; 93005; 96365; 96367; 99285; J7030; P9016; A4216; J2354; J3490

== ENCOUNTER 2019-04-28 07:01 | Inpatient (IN) | payer MEDICARE, SELFPAY ==
[2019-01-11 06:36] VITALS: BMI 40.7
[2019-04-28] VITALS (18 sets, daily range): BP systolic 101–118; BP diastolic 30–51; PULSE 57–68; RESP 16–20; TEMP 36.6–37.2; O2SAT 93–99; BMI 48.6; BMI 40.7; BMI 40.8
--- NOTE | 2019-04-28 07:22 | ED.VIS.GI ---
History of Present Illness Chief Complaint: GI Bleed Narrative: Patient presenting for evaluation secondary to GI bleed. Patient reports that he had an episode today where he vomited a moderate amount of blood, and then started to pass bloody stools. Patient states that he has some crampy diffuse abdominal pain. Patient reports that in the past he has had a lower GI bleeding, but denies any history of upper GI bleeding. Patient denies any history of alcoholism or stomach ulcer. Denies any frequent NSAID usage. Denies that he is on any sort of anticoagulants. No exacerbating relieving factors to the patient's symptoms. Review of systems otherwise negative. Past Medical History - Allergies and Home Meds Allergies/Adverse Reactions: Allergies No Known Allergies Allergy (Verified 01/11/19 06:36) Past Medical History: - - CHF, aortic stenosis, chronic kidney disease, hypertension, diabetes Surgical History: - - prostate surgery, hernia surgery, circumcision Smoking Status: Former smoker - Family History Maternal Family History: Reports: Diabetes Paternal Family History: Reports: Cancer - Prostate Review of Systems All systems negative except as indicated General: Denies: Fever Gastrointestinal: Reports: Nausea, Vomiting, Hematochezia, - - Hematemesis Physical Exam Vital Signs/Narrative: Vital Signs Temp Pulse Resp BP Pulse Ox 04/28/19 07:02 98 F 61 18 113/49 L 99 General: Well nourished, Well developed, Obese Head: Normocephalic, Atraumatic Eyes: EOMI, Pale conjunctiva ENT: Moist mucous membranes, No rhinorrhea Neck: Supple, Nontender Cardiovascular: Regular rate, Regular rhythm, Murmur - 3 out of 6 systolic Respiratory: No distress, CTA bilaterally, Chest nontender Abdomen: Soft, Nontender, Nondistended, Normal bowel sounds Rectal: - - Gross hematochezia noted Back: Nontender, Normal Inspection Extremities: Nontender Skin: Pallor Neurological: Alert, Oriented x3, Cranial nerves II-XII grossly intact, Normal Strength, Normal Sensation Psychological: Normal affect, Normal Mood Diagnostic/Tx/Re-eval - Medical Decision Making Patient presented for evaluation secondary to GI bleeding. Patient did complain of the possibility of an upper GI component so the patient was given aspirin, nebulized lidocaine, and an NG tube was placed. Good placement was noted on x-ray as interpreted by myself, 1 view abdominal x-ray. Patient had only a scant amount of pink fluid drainage from the NG tube. Laboratory work-up shows the patient have chronic anemia, his current hemoglobin being 7.8 and the most recent in our system we have being 7.3, but his daughter states that he recently was actually 8.5. Chemistry demonstrates the patient's chronic renal insufficiency creatinine 1.95. Due to the fact that the patient is a [facility] patient with history of cirrhosis and had actually been transferred in the past I discussed patient's case with [facility]. They were able to reviewed the patient's notes, and he has had both upper and lower endoscopies recently without showing any specific reason for his GI bleeding. It is thought that he potentially has AVMs that are small secondary to aortic stenosis, and he intermittently has this issue and it spontaneously resolves. They do not feel the patient warrants transfer. I discussed patient's case with both our hospitalist as well as Dr. Arti Duncan who will see the patient in consultation who requested that he receive a bleeding scan. Patient will be admitted. ED Disposition - Plan for ED Patient: Disposition: [facility] Diagnosis: GI bleed, Chronic kidney disease, Liver cirrhosis
[2019-04-28 07:26] LABS: Absolute Lymphocyte Count 0.91 X10^3/uL (0.83-4.51); Absolute Neutrophil Count 4.2 X10^3/uL (2.0-7.7); Basophil# 0.02 X10^3/uL; Basophil% 0.3 % (0-1); Eosinophil# 0.36 X10^3/uL; Eosinophils% 5.5 % (0-5); Hematocrit 25.1 % (40-54); Hemoglobin 7.8 g/dL (13.0-16.5); Lymphocyte # 0.91 X10^3/ul (4.0); Lymphocyte % 13.9 % (19-41); Mean Corp Hgb Conc 31.1 g/dL (32-36); Mean Corpuscular Volume 112.6 fL (80-94); Mean Platelet Vol. 12.9 fl (6.2-12.0); Monocyte# 0.97 X10^3/uL; Monocyte% 14.8 % (0-10); NRBC Flagged by Analyzer 0 % (0-5); Neutrophil # 4.24 X10^3/uL (2.7-7.7); Neutrophil % 64.6 % (47-70); POSITIVE MORPHOLOGY YES; Platelet Count 93 K/mm3 (150-450); RBC Distribution Width CV 17.7 % (11.6-14.6); RBC Distribution Width SD 72.9 fl (35.1-43.9); Red Blood Count 2.23 M/mm3 (4.6-6.2); White Blood Count 6.6 K/mm3 (4.4-11.0)
[2019-04-28 07:28] LABS: Differential Indicated SCAN CRITERIA MET
[2019-04-28 07:45] LABS: Anion Gap 7 (5-15); BUN 55 mg/dL (7-18); BUN/Creat Ratio 28.2 RATIO (10-20); Calcium,Total 8.4 mg/dL (8.5-10.1); Chloride 104 mmol/L (98-107); Creatinine, Serum 1.95 mg/dL (0.70-1.30); EST Glomerular Filtration Rate 35 mL/min (>60); Est Glom Filt Rate - Afr Amer 43 mL/min (>60); Estimated Creatinine Clearance 29.23 ml/min; Glucose 154 mg/dL (74-106); Potassium 4.6 mmol/L (3.5-5.1); Sodium Level 141 mmol/L (136-145)
[2019-04-28] MEDS: Lidocaine 4% 5 ML Ampul 2 ML INHALATION (07:49)
[2019-04-28 07:57] LABS: International Normalized Ratio 1.4; Prothrombin Time (Protime)PT. 17.3 SECONDS (11.7-14.9)
[2019-04-28 08:00] LABS: Anisocytosis 2+; Platelet Morphology LARGE
[2019-04-28 08:11] LABS: Partial Thromboplast Time 33.4 Seconds (24.1-36.2)
[2019-04-28] MEDS: Oxymetazoline 0.05% 1 SPRAY SPRAY.BTL 2 SPRAY NASAL (08:23)
--- NOTE | 2019-04-28 08:35 | RAD_ITS ---
STUDY: X-RAY - ABDOMEN/PELVIS REASON FOR EXAM: Male, 79 years old. Nasogastric tube placement. TECHNIQUE: Single AP view of the abdomen / pelvis. COMPARISON: None. FINDINGS: Normal visualized lung bases. The tip of the nasogastric tube is in the body of the stomach. There is an unremarkable bowel gas pattern. There is no demonstrated free abdominal air. The visualized liver, spleen and kidneys are grossly normal in size and morphology. Normal soft tissue structures. There are diffuse degenerative changes of the visualized lumbar spine. RAD/Abdomen Single View (Portable) IMPRESSION: The tip of the nasogastric tube is in the body of the stomach. Electronically Signed: Eliecer Lainez, at 9:10 EDT , Service support ,
--- NOTE | 2019-04-28 09:07 | NURSING ---
CALLING [facility] TRANSFERLINE
--- NOTE | 2019-04-28 09:32 | NURSING ---
[facility] DOCTOR FOR DR DE LA CRUZ
[2019-04-28 09:45] LABS: AST(SGOT) 18 U/L (15-37); Alanine Aminotransfer ALT/SGPT 19 U/L (16-61); Alkaline Phosphatase 51 U/L (45-117); Bilirubin, Direct 0.31 mg/dL (0.00-0.30); Globulin 4.4 g/dL (2.2-4.2); Protein, Total 7.4 g/dL (6.4-8.2)
--- NOTE | 2019-04-28 10:06 | NURSING ---
DR JAMES FOR DR DE LA CRUZ
--- NOTE | 2019-04-28 10:25 | NM_ITS ---
CLINICAL: 79-year-old male with reported history of hematemesis and apparent hematochezia. LABELED BLOOD POOL GASTROINTESTINAL BLEEDING STUDY COMPARISON: None available FINDINGS: Following the intravenous administration of 25.6 mCi of 99m Tc Ultratag labeled RBCs, image acquisitions of the anterior-abdomen and pelvis for a total of 60 minutes reveal: 1. Static sequential 1 minute acquisitions of the anterior abdomen-pelvis and cine projections demonstrate a focus of prominent tracer concentration noted in the left mid abdomen initiating at approximately 29 minutes posttracer injection unchanged in spatial distribution over the course of the next 8 minutes of image acquisition, with subsequent resolution. 2. Physiologic distribution of the radiopharmaceutical is otherwise noted in the hepatic, splenic, cardiac and major vascular blood pool. There is visualization of the external genitalia. NM/GI Bleed Scan IMPRESSION: 1. NEGATIVE 99m Tc ULTRATAG LABELED BLOOD POOL GASTROINTESTINAL BLEEDING EXAMINATION. 2. There is no definitive typical scintigraphic evidence of acute gastrointestinal hemorrhage on the current evaluation. Transient prominent tracer concentration noted in the left mid abdomen likely represents the presence of visualization of left kidney collecting system activity, followed by spontaneous drainage. Electronically Signed: Roberto Ashraf DO at 14:56 EDT Tel , Service support ,
--- NOTE | 2019-04-28 10:28 | NURSING ---
127 GI BLEED PAINTSIL
--- NOTE | 2019-04-28 10:34 | PCM.HP.STD ---
Problem List (1) GI bleed Status: Acute Qualifiers: GI bleed type/associated pathology: unspecified gastrointestinal hemorrhage type Qualified Code(s): K92.2 - Gastrointestinal hemorrhage, unspecified (2) Paroxysmal atrial fibrillation Status: Chronic (3) Morbid obesity Status: Chronic (4) Type 2 diabetes mellitus Status: Chronic Qualifiers: Diabetes mellitus long chain beamer insulin use: with senior living use Diabetes mellitus complication status: with neurologic complications Diabetes mellitus complication detail: with polyneuropathy Qualified Code(s): E11.42 - Type 2 diabetes mellitus with diabetic polyneuropathy; 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 Hematochezia- 2 days The patient is a 79 year old M multiple comorbidities including history of GI bleed, recently seen in [facility] with AVMs/polyps, status post treatment. Patient lives in a studio apartment on the ground floor with his son and ex- living in the upper floor. His daughter is his life enrichment director. She notes he is bleeding per rectum yesterday. It was bright red mixed with stools. Called this morning because patient was seen vomiting blood. No recent history of NSAIDs or aspirin or Plavix. Patient denied any dizziness or palpitations or chest pain or shortness of breath. Test in the ED show temperature of 97.8F, heart rate 83, blood pressure 105/36, which was 18, SPO2 is 95% on room air. WBC count is 6.6, hemoglobin 7.8, platelet count is 93, INR 1.4, BMP is significant for BUN of 55, creatinine 1.95. Patient had a nuclear bleeding scan that was negative. General surgery has been consulted. Past Medical History Past Medical History (Chronic Problems): Chronic Problems Paroxysmal atrial fibrillation (Chronic) History of left heart catheterization (Chronic 12/04/18) Normal coronary arteries. The patient has pulmonary hypertension which is mild. Right heart pressures - mildly elevated. Medical management of aortic stenosis. Would not recommend asa or plavix given recent anemia. Medical management of afib. Manual sheath removal. Total of 30 ccs of IV contrast dye for limited LHC; NO LV gram performed due to CRI. Morbid obesity (Chronic) Aortic stenosis (Chronic) Chronic anemia (Chronic) Type 2 diabetes mellitus (Chronic) Hyperlipidemia (Chronic) Liver cirrhosis (Chronic) Chronic kidney disease, stage III (moderate) (Chronic) CKD (chronic kidney disease) (Chronic) HTN (hypertension) (Chronic) Medical History: Medical History Acute respiratory failure with hypoxia (Acute) J96.01 CHF exacerbation (Acute) I50.9 Morbid obesity (Chronic) E66.01 Pleural effusion (Acute) J90 Aortic stenosis (Chronic) I35.0 Acute chest pain (Acute) R07.9 Hypoxemia (Acute) R09.02 Dyspnea (Acute) R06.00 Chronic anemia (Chronic) D64.9 Type 2 diabetes mellitus (Chronic) E11.9 Hyperlipidemia (Chronic) E78.5 Liver cirrhosis (Chronic) K74.60 Chronic kidney disease, stage III (moderate) (Chronic) N18.3 CKD (chronic kidney disease) (Chronic) N18.9 HTN (hypertension) (Chronic) I10 Allergies No Known Allergies Allergy (Verified 01/11/19 06:36) Home Medications: Ambulatory Orders Medication Instructions Recorded Levothyroxine [Synthroid] 25 mcg PO DAILY 11/23/16 Pantoprazole Sodium [Protonix] 40 mg PO BID 11/23/16 Rifaximin [Xifaxan] 550 mg PO BID 11/23/16 Simvastatin [Zocor] 20 mg PO DAILY 11/23/16 Ferrous Sulfate 325 mg PO DAILY 10/05/17 Insulin Glargine [Lantus SoloStar 25 units SUBCUT BID 12/01/18 Pen] Insulin Lispro [Humalog KwikPen] 12 units SQ LUNCH 12/01/18 Insulin Lispro [Humalog KwikPen] 15 units SQ DINNER 12/01/18 Insulin Lispro [Humalog KwikPen] 16 unit SQ BREAKFAST 12/01/18 Lactulose [Constulose] 30 ml PO BID 12/01/18 Multivit-Min/FA/Lycopen/Lutein 1 ea PO DAILY 12/01/18 [Centrum Silver Men Tablet] Nadolol [Corgard (Beta Reggie)] 40 mg PO DAILY 12/01/18 Psyllium Husk [Metamucil] 0.4 gm PO QHS 12/01/18 Spironolactone 100 mg PO DAILY 12/01/18 furosemide 80 mg tablet 80 mg PO DAILY tab 12/18/18 Loratadine [Claritin] 10 mg PO PRN PRN 01/11/19 Albuterol IH (ProAir) [Proair Hfa] 2 puff INHALATION Q6H PRN PRN 04/28/19 Ipratropium/Albuterol Sulfate 3 ml INHALATION Q6H.RT 04/28/19 [Duoneb] Methylcellulose [Fiber Therapy] 500 mg PO DAILY 04/28/19 Nut.tx.gluc.intoler,Lac-Fr,Soy 237 ml PO TID 04/28/19 [Glucerna] Sucralfate [Carafate] 1 gm PO 4X/DAY 04/28/19 Surgical History: Surgical History (Last Updated 12/04/18 @ 17:53 by Sienna Carlson) History of left heart catheterization (Chronic) Onset Date: 12/04/18 Z98.890 Normal coronary arteries. The patient has pulmonary hypertension which is mild. Right heart pressures - mildly elevated. Medical management of aortic stenosis. Would not recommend asa or plavix given recent anemia. Medical management of afib. Manual sheath removal. Total of 30 ccs of IV contrast dye for limited LHC; NO LV gram performed due to CRI. Surgical History: - - prostate surgery, hernia surgery, circumcision Psychiatric History: No pertinent psych hx Lives: Alone - family has remote video implanted and also are close by and visit daily. Smoking Status: Former smoker Tobacco Use: Non-smoker Alcohol: None Drugs: None - *Family History Maternal History Items: Diabetes Paternal History Items: Cancer - Prostate Review of Systems Constitutional: Reports: Weakness. Denies: Anorexia, Chills, Fever, Weight Change Eyes: Denies: Blurred vision, Cataracts, Conjunctivae Inflammation, Pain, Redness HEENT: Denies: Difficulty Hearing, Difficulty Swallowing, Head Aches, Hearing Changes, Sinus Congestion, Sinus Drainage Cardiovascular: Denies: Chest Pain, Claudication, Orthopnea, Palpitations, Paroxysmal Noc. Dyspnea Respiratory: Denies: Cough, Hemoptysis, Shortness of breath at rest, Shortness of breath upon exertion, Sputum production, Wheezing Gastrointestinal: Denies: Abdominal Pain, Hematemesis, Hematochezia, Nausea, Vomiting Genitourinary: Denies: Dysuria, Frequency, Incontinence Musculoskeletal: Denies: Joint Pain, Joint Tenderness Skin: Denies: Rash, Wounds Neurological: Denies: Numbness, Tingling, Focal weakness Psychiatric: Denies: Anxiety, Depression, Homicidal Ideations, Suicidal Ideations Hematologic/ Lymphatic: Denies: Easy Bruising, Easy Bleeding VTE Information - Inpt Only VTE Present on Admission: No VTE Pharm Prophylaxis ordered?: Yes Patient Problems: Active and Suspected Problems GI bleed (Acute) - Physical Exam General: Alert, Oriented x3, Cooperative, No apparent distress, - - obese HEENT: Atraumatic, PERRLA, EOMI, Normocephalic Oral: Moist Mucosa Neck: Supple Lungs: Clear to auscultation, Normal air movement Cardiovascular: Regular rate, Regular Rhythm, Normal S1, Normal S2, No murmurs Abdomen: Bowel Sounds Present, Soft, Non Tender, Non-Distended, No Hepato-splenomegaly Extremities: Edema - bilateral pedl edema +1 Skin: No rashes, No breakdown Musculoskeletal: No Tenderness to Palpation of Joints or Extremities Lymphatic: No Cervical, Supraclavicular, or Inguinal Adenopathy Neurological: Cranial nerves II-XII grossly intact, Neuro grossly intact Psych/Mental Status: Normal Affect, Appropriate Vital Signs Temp Pulse Resp BP Pulse Ox 98 F 57 L 16 110/51 L 97 04/28/19 07:02 04/28/19 10:06 04/28/19 10:06 04/28/19 10:06 04/28/19 10:06 Oxygen Delivery Method Room Air Weight: 145 kg Body Mass Index (BMI) 48.6 Finger Stick Blood Glucose 132 Laboratory Tests Past 24 Hrs 04/28/19 04/28/19 04/28/19 07:15 07:15 07:15 WBC 6.6 RBC 2.23 L Hgb 7.8 L Hct 25.1 L MCV 112.6 H MCH 35.0 H MCHC 31.1 L RDW Std Deviation 72.9 H RDW Coeff of Mt 17.7 H Plt Count 93 L MPV 12.9 H Immature Gran % (Auto) 0.900 Neut % (Auto) 64.6 Lymph % (Auto) 13.9 L [place] % (Auto) 14.8 H Eos % (Auto) 5.5 H Baso % (Auto) 0.3 Absolute Neuts (auto) 4.2 Absolute Lymphs (auto) 0.91 Nucleated RBC % 0 Plt Morphology Comment LARGE Anisocytosis 2+ PT 17.3 H INR 1.4 APTT 33.4 Sodium 141 Potassium 4.6 Chloride 104 Carbon Dioxide 30.0 Anion Gap 7 BUN 55 H Creatinine 1.95 H Estim Creat Clear Calc 29.23 Est GFR (MDRD) Af Amer 43 L Est GFR (MDRD) Non-Af 35 L BUN/Creatinine Ratio 28.2 H Glucose 154 H Calcium 8.4 L Total Bilirubin Direct Bilirubin AST ALT Alkaline Phosphatase Total Protein Albumin Globulin Blood Type Antibody Screen 04/28/19 04/28/19 07:15 07:15 WBC RBC Hgb Hct MCV MCH MCHC RDW Std Deviation RDW Coeff of Mt Plt Count MPV Immature Gran % (Auto) Neut % (Auto) Lymph % (Auto) [place] % (Auto) Eos % (Auto) Baso % (Auto) Absolute Neuts (auto) Absolute Lymphs (auto) Nucleated RBC % Plt Morphology Comment Anisocytosis PT INR APTT Sodium Potassium Chloride Carbon Dioxide Anion Gap BUN Creatinine Estim Creat Clear Calc Est GFR (MDRD) Af Amer Est GFR (MDRD) Non-Af BUN/Creatinine Ratio Glucose Calcium Total Bilirubin 0.80 Direct Bilirubin 0.31 H AST 18 ALT 19 Alkaline Phosphatase 51 Total Protein 7.4 Albumin 3.0 L Globulin 4.4 H Blood Type A POSITIVE Antibody Screen NEGATIVE Assessment/Plan All Active Problems GI bleed (Acute) Acute respiratory failure with hypoxia (Acute) CHF exacerbation (Acute) Pleural effusion (Acute) Acute chest pain (Acute) Hypoxemia (Acute) Dyspnea (Acute) Hyperglycemia (Acute) 79 year old M multiple comorbidities including history of GI bleed, recently seen in [facility] with AVMs/polyps, status post treatment who comes in with an episode of GI bleed 1. Acute GI bleed, likely secondary to AVMs, stable vitals, negative nuclear bleeding scan on admission History of recent AVM/polyp removal, Plan: Admit to PCU, trend H&H, will transfuse when hemoglobin is close to 7, IV PPI, general surgery consulted 2. Liver cirrhosis with chronic hepatic encephalopathy, no signs of acute encephalopathy Continue lactulose, rifaximin 3. Type II DM, insulin-dependent, complicated by peripheral neuropathy, patient kept n.p.o., continue blood glucose checks every 6 with low-dose insulin sliding scale, continue with Lantus units nightly 4. Paroxysmal atrial fibrillation, normal sinus rhythm/hyperlipidemia/CKD stage III, all appear to be stable 5. DVT PPx- SCDs Code Visit Inpatient E&M: 46956 Init Hosp L3
[2019-04-28 11:33] LABS: Hematocrit 23.6 % (40-54); Hemoglobin 7.4 g/dL (13.0-16.5); POSITIVE MORPHOLOGY YES
[2019-04-28] MEDS: 0.9% Normal Saline 1,000 ML 75 ML IV (14:29)
--- NOTE | 2019-04-28 15:05 | CASEMGMT ---
Patient has a Healthcare POA and Healthcare LW on file at [facility]. Kate ALEJANDRA RN [employer]
[2019-04-28 17:41] LABS: Hematocrit 23.1 % (40-54); Hemoglobin 7.3 g/dL (13.0-16.5)
[2019-04-28 18:06] LABS: Bedside Glucose 106 mg/dL (70-110)
--- NOTE | 2019-04-28 18:55 | CON.PCM_ITS ---
- Consult Date of Consult: 04/28/19 - Reason for Consult Asked to evaluation patient by ED and hospitalist service. HPI: 79 y/o WM presents with hematochezia and hematemesis with Hgb of 7. He has anemia of chronic disease, but noted emesis of blood for about a day and noted bloody bowel movements for about 2 days. Noted lower abdominal crampy pain with bowel movements during this time also. Denies use of NSAIDS. Bleeding scan obtained from the ED - negative. Patient was hemodynamically stable in the ED and admission. History of previous endoscopies - last in December of this year at [facility] - EGD revealed gastric and duodenal polyps, colonoscopy no lesions Has elevated PT and has thrombocytopenia - chronic liver disease by liver biopsy PAST MEDICAL HISTORY: Paroxysmal atrial fibrillation (Chronic) History of left heart catheterization (Chronic 12/04/18) Normal coronary arteries. The patient has pulmonary hypertension which is mild. Right heart pressures - mildly elevated. Medical management of aortic stenosis. Would not recommend asa or plavix given recent anemia. Medical management of afib. Manual sheath removal. Total of 30 ccs of IV contrast dye for limited LHC; NO LV gram performed due to CRI. 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 Chronic kidney disease, stage III (moderate) (Chronic) History of kidney stones HTN (hypertension) Benign prostate hypertrophy with episodes of obstruction PAST SURGICAL HISTORY: denies any previous surgeries - except for multiple upper and lower endoscopies - last EGD December 2017 findings of many gastric fundic polyps and duodenal polyps, last colonoscopy was normal with poor colon cleansing preparation However, patient is poor historian and from previous records - umbilical hernia repair (2013), cystoscopy (2013), liver biopsy (2014), prostate biopsy MEDICATIONS: Levothyroxine [Synthroid] 25 mcg PO DAILY Pantoprazole Sodium [Protonix] 40 mg PO BID Rifaximin [Xifaxan] 550 mg PO BID Simvastatin [Zocor] 20 mg PO DAILY Ferrous Sulfate 325 mg PO DAILY Insulin Glargine [Lantus SoloStar 25 units SUBCUT BID Insulin Lispro [Humalog KwikPen] 12 units SQ LUNCH Insulin Lispro [Humalog KwikPen] 15 units SQ DINNER Insulin Lispro [Humalog KwikPen] 16 unit SQ BREAKFAST Lactulose [Constulose] 30 ml PO BID Multivit-Min/FA/Lycopen/Lutein 1 ea PO DAILY Nadolol [Corgard (Beta Reggie)] 40 mg PO DAILY Psyllium Husk [Metamucil] 0.4 gm PO QHS Spironolactone 100 mg PO DAILY furosemide 80 mg tablet 80 mg PO DAILY tab Loratadine [Claritin] 10 mg PO PRN PRN Albuterol IH (ProAir) [Proair Hfa] 2 puff INHALATION Q6H PRN PRN Ipratropium/Albuterol Sulfate 3 ml INHALATION Q6H.RT Methylcellulose [Fiber Therapy] 500 mg PO DAILY Nut.tx.gluc.intoler,Lac-Fr,Soy 237 ml PO TID Sucralfate [Carafate] 1 gm PO 4X/DAY ALLERGIES: NKDA REVIEW OF SYSTEMS: CONSTITUTIONAL: No fevers, chills, nightsweats, unintended weight loss + fatigue HEENT: Denies frequent or severe heaches, nasal congestion/sinus symptoms, problematic allergy problems. EYES: No diplopia or blurry vision. CARDIOVASCULAR: No chest pain, dyspnea with exertion, palpitations, orthopnea, PND, ankle edema. PULM: No dyspnea at rest, unexplained cough. GI: as per HPI. : No new urinary complaints, including dysuria, gross hematuria or pyuria. NEURO: No new balance problems, peripheral weakness/paresthesias or numbness of concern. MUSC-SKEL: has chronic back pain PSY: No concerns regarding depression, anxiety or panic. INTEGUMENTARY: No new skin changes (rash, new or changing mole, new growth) PHYSICAL EXAMINATION: 79-year-old well-nourished well-developed gentleman in no acute distress. BP 104/53 Pulse 62 Temp 98.4F BMI 40 HEENT: Head is normocephalic, atraumatic. Sclerae white, conjunctivae pink. PEERL. EOMs are intact. Oropharynx is benign.Complexion pale. + Pallor LYMPHATICS: There is no palpable adenopathy in the neck, supraclavicular region, axillae, or groin. LUNGS: Lungs are clear to percussion and auscultation. diminished breath sounds at bases HEART: Heart is normal + grade 2/6 systolic murmurs, no gallops, or rubs. ABDOMEN: obese, Soft and nontender without organomegaly. No masses or ascites. EXTREMITIES: Are +1 edema. NEUROLOGIC: Exam is physiologic ASSESSMENT: 79-year-old WM with anemia of chronic disease, presents with hematemesis and hematochezia and Hgb of 7 PLAN: I have offered upper and lower endoscopy to patient for evaluation and possible treatment. I have explained the risks/benefits of the procedure to the patient, including but not limited to: infection, bleeding, perforation of the GI tract, injury to any internal organs such as the liver/spleen, inability to complete the procedure, complications of anesthesia, etc. ? he understands. He wishes to proceed. Will start colon cleansing preparation tonight and check with schedule to add on double endoscopy tomorrow.
[2019-04-28] MEDS: Electrolyte Solution/Peg's 4000 ML PO (20:37)
[2019-04-28] MEDS: Furosemide 20 MG/2 ML VIAL IV (22:04)
[2019-04-28] MEDS: 0.9% NaCl Peripheral Flush Adult/Peds IV (22:04)
[2019-04-28 22:35] LABS: Bedside Glucose 105 mg/dL (70-110)
[2019-04-28 23:16] LABS: Hematocrit 25.3 % (40-54)
[2019-04-29] VITALS (19 sets, daily range): BP systolic 83–120; BP diastolic 40–53; PULSE 60–82; RESP 16–24; TEMP 36.1–37.6; O2SAT 93–100; BMI 40.6
--- NOTE | 2019-04-29 | STO_PTH ---
PATIENT: HANG MCNEAL LOC: [facility] U#:[id number] AGE/SX: 79/M ROOM: [facility] RE04/28/[address]: Dr. Preeti Cason MD : [id number] BED: 1 DIS: 04/29/2019 SPEC #: [id number] RECD: 04/29/19 12:06 STATUS: ELIZABETH REQ #: [id number] HEIKE: 04/29/19 00:[address]: Arti Duncan DEPT: SURGICAL PATHOLOGY RECD BY: Polo Ralph ENTERED: 04/29/19 12:07 SP TYPE: STOMACH BX OTHR DR: MD Dr. Arti Landin MD Janet Ziol, DIRECTOR FURNITURE-C Tissues: Stomach, NOS Procedures: Surgery Specimen Level IV Comments: @ Ordering doctor for SUIV edited from to @ by THOMAS at 04/29/19 1325 @ Submitting doctor edited from to @ by THOMAS at 04/29/19 1324 HEADER OPERATION: Colonoscopy, EGD ([facility] [place]) PRE-OP DIAGNOSIS: GI bleed TISSUE SUBMITTED: Stomach polyp MICROSCOPIC DIAGNOSIS Gastric polyp, biopsy: Inflamed hyperplastic polyp. Fibrinopurulent material and granulation tissue. AM:nani 04/30/19 COMMENT Clinical correlation is suggested. Case has been reviewed in consultation with Dr. Phillips who concurs with the above diagnosis. IDC:[email or web address] MICROSCOPIC DESCRIPTION Slides are reviewed. GROSS DESCRIPTION Received in fixative is one container labeled with the patient's name and designated stomach polyp. The specimen consists of multiple fragments of harrell hemorrhagic soft tissue that in aggregate measure 2 x 1 x 0.2 cm. The entire specimen is submitted in one cassette. / DAVID:nani 04/29/19 TC:2 CPT: 92049
[2019-04-29 00:26] LABS: Bedside Glucose 115 mg/dL (70-110)
--- NOTE | 2019-04-29 03:35 | NURSING ---
Report given to CHALO Graf at this time. Lesia will resume care of this patient.
--- NOTE | 2019-04-29 03:36 | NURSING ---
Report received from Keira Michel. Assement completed, pt aox3, lungs clear, normoactive bowel sounds, peripheral pulses regular. NG to left nares to liws, bright red return noted. Pt denies needs at this time, will continue to monitor. Son sleeping at bedside.
[2019-04-29 05:10] LABS: Partial Thromboplast Time 34.9 Seconds (24.1-36.2)
[2019-04-29 05:14] LABS: International Normalized Ratio 1.5; Prothrombin Time (Protime)PT. 17.5 SECONDS (11.7-14.9)
[2019-04-29 05:16] LABS: ALB/GLOB Ratio 0.7 RATIO (0.9-2.4); AST(SGOT) 19 U/L (15-37); Alanine Aminotransfer ALT/SGPT 18 U/L (16-61); Albumin, Serum 2.8 g/dL (3.2-5.0); Alkaline Phosphatase 46 U/L (45-117); Anion Gap 6 (5-15); BUN 45 mg/dL (7-18); BUN/Creat Ratio 26.2 RATIO (10-20); Calcium,Total 8.4 mg/dL (8.5-10.1); Chloride 108 mmol/L (98-107); Creatinine, Serum 1.72 mg/dL (0.70-1.30); EST Glomerular Filtration Rate 41 mL/min (>60); Est Glom Filt Rate - Afr Amer 49 mL/min (>60); Estimated Creatinine Clearance 33.14 ml/min; Glucose 119 mg/dL (74-106); Phosphorus 4.2 mg/dL (2.5-4.9); Potassium 4.2 mmol/L (3.5-5.1); Protein, Total 6.8 g/dL (6.4-8.2); Sodium Level 144 mmol/L (136-145)
[2019-04-29 05:33] LABS: Absolute Lymphocyte Count 0.99 X10^3/uL (0.83-4.51); Basophil# 0.01 X10^3/uL; Basophil% 0.2 % (0-1); Eosinophil# 0.32 X10^3/uL; Eosinophils% 5.2 % (0-5); Hematocrit 24.9 % (40-54); Lymphocyte # 0.99 X10^3/ul (4.0); Mean Corp Hgb Conc 32.1 g/dL (32-36); Mean Corpuscular Hgb 34.9 pg (27.0-32.0); Mean Corpuscular Volume 108.7 fL (80-94); Mean Platelet Vol. 13.3 fl (6.2-12.0); Monocyte# 0.86 X10^3/uL; Monocyte% 13.9 % (0-10); NRBC Flagged by Analyzer 0.5 % (0-5); Neutrophil # 3.96 X10^3/uL (2.7-7.7); Neutrophil % 64.1 % (47-70); POSITIVE MORPHOLOGY YES; Platelet Count 85 K/mm3 (150-450); RBC Distribution Width CV 19.6 % (11.6-14.6); RBC Distribution Width SD 77.2 fl (35.1-43.9); Red Blood Count 2.29 M/mm3 (4.6-6.2); White Blood Count 6.2 K/mm3 (4.4-11.0)
[2019-04-29 05:41] LABS: Differential Indicated SCAN CRITERIA MET
--- NOTE | 2019-04-29 05:55 | EKG12_ITS ---
Test Reason : Blood Pressure : / mmHG Vent. Rate : 065 BPM Atrial Rate : 065 BPM P-R Int : 184 ms QRS Dur : 092 ms QT Int : 418 ms P-R-T Axes : 063 040 031 degrees QTc Int : 434 ms Normal sinus rhythm Normal ECG When compared with ECG of 11-JAN-2019 06:43, No significant change was found Confirmed by LIAM MCCONNELL, ARTHUR ([id number]), social media editor PRADIP PARADA ([id number]) on 05/03/2019 3:13:39 PM Referred By: Preeti Cason Confirmed By:BERNARDINO WHEELER MD
--- NOTE | 2019-04-29 05:55 | RAD_ITS ---
STUDY: X-RAY CHEST REASON FOR EXAM: Male, 79 years old. Slight shortness of breath. Preop TECHNIQUE: Single AP portable view of the chest. COMPARISON: 01/11/2019 FINDINGS: Mild vascular prominence, decreased since previous exam. There is no demonstrated pleural abnormality. There is borderline cardiomegaly. There are stable calcified mediastinal lymph nodes. Normal visualized pulmonary arteries. There is atherosclerotic calcification of the aortic arch with tortuosity. There are diffuse degenerative changes of the visualized thoracic spine. There is demineralization of osseous structures. Normal visualized ribs, clavicles, and shoulders. There is no demonstrated abnormality of the visualized soft tissue structures of the upper abdomen. RAD/Chest 1 View (Portable) IMPRESSION: Borderline cardiac size and mild vascular prominence, aeration appears improved when compared to previous exam. Electronically Signed: Luisana Molina MD at 5:55 EDT , Service support ,
[2019-04-29 06:18] LABS: Differential Comment SCANNED; Macrocytosis 3+; Platelet Estimate ADEQUATE (ADEQ)
[2019-04-29 07:00] LABS: Bedside Glucose 134 mg/dL (70-110)
[2019-04-29] MEDS: Lactated Ringers 1,000 ML 100 ML IV (08:06)
--- NOTE | 2019-04-29 08:10 | PCM.PN.HOSP ---
Patient Problems: Active and Suspected Problems GI bleed (Acute) Subjective: Patient was seen and examined. Underwent EGD. Multiple gastric polyps seen, removed, cauterized. Denied any new complaints. Seen eating his lunch. No more bleeding per rectum seen. Objective: Physical Exam General: Alert, Oriented x3, Cooperative, No apparent distress, - - obese HEENT: Atraumatic, PERRLA, EOMI, Normocephalic Oral: Moist Mucosa Neck: Supple Lungs: Clear to auscultation, Normal air movement Cardiovascular: Regular rate, Regular Rhythm, Normal S1, Normal S2, No murmurs Abdomen: Bowel Sounds Present, Soft, Non Tender, Non-Distended, No Hepato-splenomegaly Extremities: Edema - bilateral pedl edema +1 Skin: No rashes, No breakdown Musculoskeletal: No Tenderness to Palpation of Joints or Extremities Lymphatic: No Cervical, Supraclavicular, or Inguinal Adenopathy Neurological: Cranial nerves II-XII grossly intact, Neuro grossly intact Psych/Mental Status: Normal Affect, Appropriate Vitals/I&O's: Vital Signs Temp Pulse Resp BP Pulse Ox 98.2 F 68 16 113/51 L 95 04/29/19 07:29 04/29/19 07:29 04/29/19 07:29 04/29/19 07:29 04/29/19 07:29 Oxygen Delivery Method Room Air Weight: 121.2 kg Body Mass Index (BMI) 40.6 Finger Stick Blood Glucose 132 Intake and Output for Last 24 Hours 04/27/19 04/28/19 04/29/19 23:59 23:59 23:59 Intake Total 1826.25 / 1826.25 400.00 / 400.00 Output Total 100 / 100 Balance 1726.25 / 1726.25 400.00 / 400.00 Laboratory Results 04/28/19 07:15: APTT 33.4 04/28/19 07:15: Total Bilirubin 0.80, Direct Bilirubin 0.31 H, AST 18, ALT 19, Alkaline Phosphatase 51, Total Protein 7.4, Albumin 3.0 L, Globulin 4.4 H 04/28/19 07:15: Crossmatch See Detail 04/28/19 11:25: Hgb 7.4 L, Hct 23.6 L 04/28/19 17:23: Hgb 7.3 L, Hct 23.1 L 04/28/19 17:52: POC Glucose 106 04/28/19 22:01: POC Glucose 105 04/28/19 23:10: Hgb 8.0 L, Hct 25.3 L 04/29/19 00:20: POC Glucose 115 H 04/29/19 04:49: WBC 6.2, RBC 2.29 L, Hgb 8.0 L, Hct 24.9 L, MCV 108.7 H, MCH 34.9 H, MCHC 32.1, RDW Std Deviation 77.2 H, RDW Coeff of Mt 19.6 H, Plt Count 85 L, MPV 13.3 H, Immature Gran % (Auto) 0.600, Neut % (Auto) 64.1, Lymph % (Auto) 16.0 L, Loíza % (Auto) 13.9 H, Eos % (Auto) 5.2 H, Baso % (Auto) 0.2, Absolute Neuts (auto) 4.0, Absolute Lymphs (auto) 0.99, Nucleated RBC % 0.5, Differential Comment SCANNED, Platelet Estimate ADEQUATE, Macrocytosis 3+ 04/29/19 04:49: Sodium 144, Potassium 4.2, Chloride 108 H, Carbon Dioxide 30.0, Anion Gap 6, BUN 45 H, Creatinine 1.72 H, Estim Creat Clear Calc 33.14, Est GFR (MDRD) Af Amer 49 L, Est GFR (MDRD) Non-Af 41 L, BUN/Creatinine Ratio 26.2 H, Glucose 119 H, Calcium 8.4 L, Phosphorus 4.2, Magnesium 2.0, Total Bilirubin 0.90, AST 19, ALT 18, Alkaline Phosphatase 46, Total Protein 6.8, Albumin 2.8 L, Globulin 4.0, Albumin/Globulin Ratio 0.7 L 04/29/19 04:49: PT 17.5 H, INR 1.5, APTT 34.9 04/29/19 04:49: Hemoglobin A1c Pending 04/29/19 06:55: POC Glucose 134 H Current Medications Acetaminophen (Tylenol) 650 mg PO Q6H PRN PRN PRN Reason: Mild pain 1-3/Temp > 100.7 F Dextrose (D50w Syringe) 0 gm IV X1 PRN; Protocol PRN Reason: Hypoglycemia Glucagon () 1 mg IM .X1 PRN PRN Reason: Hypoglycemia Pantoprazole Sodium 80 mg/ (Sodium Chloride) 100 mls @ 10 mls/hr CONT INF Q10H [facility] Last Admin: 04/29/19 07:09 Dose: 10 mls/hr Documented by: Sodium Chloride () 250 mls @ 15 mls/hr IV .[id number] PRN PRN Reason: SALINE FLUSH Sodium Chloride () 500 mls @ 15 mls/hr IV .[id number] PRN PRN Reason: SALINE FLUSH Last Infusion: 04/28/19 21:50 Dose: 0 mls/hr Documented by: Lactated Ringer's () 1,000 mls @ 100 mls/hr IV .Q10H [facility] Last Admin: 04/29/19 08:06 Dose: 100 mls/hr Documented by: Insulin Glargine (Lantus ([facility])) 5 units SC QHS [facility] Last Admin: 04/28/19 22:04 Dose: 5 units Documented by: Insulin Human Lispro (Humalog Kwikpen ([facility])) 0 unit SC Q6 [facility]; Protocol Last Admin: 04/29/19 06:57 Dose: Not Given Documented by: Lactulose (Chronulac, Cephulac) 20 gm PO BID [facility] Last Admin: 04/28/19 22:06 Dose: Not Given Documented by: Levothyroxine Sodium (Synthroid) 25 mcg PO DAILY@0600 [facility] Last Admin: 04/29/19 06:57 Dose: Not Given Documented by: Melatonin (Melatonin) 3 mg PO QHS PRN PRN PRN Reason: INSOMNIA Nadolol (Corgard) 40 mg PO DAILY [facility] Nitroglycerin (Nitrostat) 0.4 mg SUBLINGUAL Q5M PRN PRN Reason: CARDIAC/CHEST PAIN Ondansetron HCl (Zofran) 4 mg IV Q8H PRN PRN PRN Reason: NAUSEA/VOMITING Rifaximin (Xifaxan) 550 mg PO BID [facility] Last Admin: 04/28/19 22:05 Dose: Not Given Documented by: Sodium Chloride () 10 - 40 ml IV UD PRN PRN Reason: SALINE FLUSH Last Admin: 04/28/19 22:04 Dose: 10 ml Documented by: Spironolactone (Aldactone) 100 mg PO DAILY [facility] Medical Necessity - Tobacco Use Smoking Status: Former smoker Tobacco Use: Non-smoker Assessment/Plan All Active Problems GI bleed (Acute) Acute respiratory failure with hypoxia (Acute) CHF exacerbation (Acute) Pleural effusion (Acute) Acute chest pain (Acute) Hypoxemia (Acute) Dyspnea (Acute) Hyperglycemia (Acute) 79 year old M multiple comorbidities including history of GI bleed, recently seen in [facility] with AVMs/polyps, status post treatment who comes in with an episode of GI bleed 1. Acute GI bleed, upper secondary to gastric lips, removed and cauterized, bleeding mucosa cauterized General surgery consulted, continue on IV PPI, will continue to trend H&H NG tube removed 2. Acute blood loss anemia secondary to upper GI, status post 1 unit packed RBC. Hb 8.0, will continue to monitor 2. Liver cirrhosis with chronic hepatic encephalopathy, no signs of acute encephalopathy, continue lactulose, rifaximin 3. Type II DM, insulin-dependent, complicated by peripheral neuropathy, blood sugars are controlled, will resume on patient's home insulin as patient is now eating, continue blood sugar checks with low-dose insulin sliding scale. 4. Paroxysmal atrial fibrillation, normal sinus rhythm/hyperlipidemia/CKD stage III, all appear to be stable 5. DVT PPx- SCDs Code Visit Inpatient E&M: 82752 Subs Hosp L2
[2019-04-29 08:14] LABS: Hemoglobin A1c 5.1 % (4.2-6.3)
--- NOTE | 2019-04-29 09:23 | OP.ENDO_ITS ---
04/29/2019 Ernie Delgadillo Re : Upper GI endoscopy procedure for Roberto Meza Dear Day This procedure was performed on April. My impressions and recommendations are as follows: Impressions : - Normal first portion of the duodenum and second portion of the duodenum. - Multiple gastric polyps. - Clotted blood in the gastric body. - Gastritis with hemorrhage - bleeding controlled with electrocautery - Small hiatal hernia. - No specimens collected. Recommendations : - Return patient to hospital [facility] for observation. - Continue present medications. My findings are described in the full procedure note, which is enclosed. If I can be of further assistance, please feel free to contact me at Doctor phone number(s): , Work: . Sincerely, MD Arti Zacarias MD 04/29/2019 9:22:59 AM This report has been signed electronically.
--- NOTE | 2019-04-29 09:25 | OP.ENDO_ITS ---
04/29/2019 Ernie Delgadillo Re : Colonoscopy procedure for Roberto Meza Dear Day This procedure was performed on April. My impressions and recommendations are as follows: Impressions : - Preparation of the colon was poor - however no large masses or polyps were noted. No signs of active bleeding was noted, melanotic stools noted throughout colon. - External and internal hemorrhoids. - No specimens collected. Recommendations : - Return patient to hospital [facility]z for observation. - No repeat colonoscopy due to age. - Continue present medications. My findings are described in the full procedure note, which is enclosed. If I can be of further assistance, please feel free to contact me at Doctor phone number(s): , Work: . Sincerely, MD Arti Zacarias MD 04/29/2019 9:25:16 AM This report has been signed electronically.
--- NOTE | 2019-04-29 09:25 | PCM.PN.BLA ---
Progress Note Active bleeding noted from gastric polyps and also mucosa - controlled with electrocautery. No other source of bleeding identified - colonoscopy essentially normal. NG tube removed Advance to regular diet - or as per dietary requirements.
--- NOTE | 2019-04-29 10:06 | CASEMGMT ---
EMMIE reviewed chart and noted patient is active with [employer]. EMMIE called [facility] and spoke with Dina on the coverage line letting her know about admission. She will notify his providers. Awilda Torrez is his Photoengraving Etcher Apprentice, however she is out on an extended leave until June. Kate ALEJANDRA MSW
--- NOTE | 2019-04-29 11:54 | CASEMGMT ---
RN CM Assessment Presentation: GIB Intro role of CM and purpose of RN CM assessment to patient in room. Pt is awake, alert, able to answer questions, but slow to respond. Demographics, PCP and Pharmacy verified. Pt states he lives with son Rose Mary in basement (walk-out, no stairs) apartment in son's home. Family assists him, and he has [employer] service aides who come assist. RN CM called to son to clarify assessment questions, no answer. PCP: Kayla Bernstein NP Specialists: Dr. Duncan Preferred Pharmacy: [facility] Insurance: [employer] [facility] Prescription Benefit: yes LNOK: Mateo Meza, daughter and DPOA Living Arrangements: Lives in basement apartment with living area, bedroom, bath and kitchen. Pt states he makes own meals. Family can assist if needed. Has [employer] service aides to assist with bathing. Does not know agency. Transportation: daughter drives DME: walker, cane, home oxygen. Pt does not know name of company. HHC: per Pt, no longterm home health. [employer] services only SW consult: Pt has [employer] Services Patient DC goals: Home DC PLAN: undetermined. Will continue to follow and continue evaluation for discharge needs. PT/OT evaluations are pending. Cinthia ANDREA RN ACM
[2019-04-29] MEDS: rifAXIMin 550 MG Tablet PO ×2 (12:26→20:54)
[2019-04-29] MEDS: Nadolol 40 MG Tablet PO (12:26)
[2019-04-29] MEDS: Lactulose 20 GM/30 ML UDC PO ×2 (12:27→20:53)
[2019-04-29] MEDS: Spironolactone 50 MG Tablet 100 MG PO (12:28)
[2019-04-29 12:35] LABS: Bedside Glucose 109 mg/dL (70-110)
--- NOTE | 2019-04-29 13:40 | CASEMGMT ---
EMMIE called [facility] back to check on what services patient has currently. EMMIE spoke with Vijay Posey. He said patient has a medical alert button. He was getting aides through [facility], but they are no longer active with patient. He said patient's family is the back up for caregiving. EMMIE and RN CM to follow for d/c planning. Kate ALEJANDRA MSW
[2019-04-29 16:55] LABS: Bedside Glucose 143 mg/dL (70-110)
[2019-04-29 17:39] LABS: Hematocrit 23.9 % (40-54); Hemoglobin 7.3 g/dL (13.0-16.5)
[2019-04-29] MEDS: Glucerna Shake 120 ML LIQUID PO (17:57)
[2019-04-29] MEDS: Insulin Lispro 100 UNIT/ML INSULN.PEN 15 UNIT SC (17:57)
[2019-04-29] MEDS: 0.9% Normal Saline 1,000 ML 75 ML IV (19:26)
--- NOTE | 2019-04-29 19:43 | PCM.DC.SUM ---
Discharge Date and Diagnosis - Problem List Patient Problems: Active and Suspected Problems GI bleed (Acute) Date of Admission: 04/28/19 Date of Discharge: 04/29/19 - Primary Discharge Diagnosis Active and Suspected Problems GI bleed (Acute) - Secondary Discharge Diagnosis Chronic Problems Paroxysmal atrial fibrillation (Chronic) History of left heart catheterization (Chronic 12/04/18) Normal coronary arteries. The patient has pulmonary hypertension which is mild. Right heart pressures - mildly elevated. Medical management of aortic stenosis. Would not recommend asa or plavix given recent anemia. Medical management of afib. Manual sheath removal. Total of 30 ccs of IV contrast dye for limited LHC; NO LV gram performed due to CRI. Morbid obesity (Chronic) Aortic stenosis (Chronic) Chronic anemia (Chronic) Type 2 diabetes mellitus (Chronic) Hyperlipidemia (Chronic) Liver cirrhosis (Chronic) Chronic kidney disease, stage III (moderate) (Chronic) CKD (chronic kidney disease) (Chronic) HTN (hypertension) (Chronic) Hospital Course and Treatment Operations: None Summary of Care Provided: The patient is an 79-year-old male with a significant history of paroxysmal A. fib; chronic anemia; aortic stenosis; CKD stage III; hypertension; and liver cirrhosis; and also GI bleed who within the last 3 months had EGD and colonoscopy at [facility] which showed AVMs and polyps and who presented to the emergency department with hematochezia and hematemesis. Nuclear scan was unremarkable. Patient's hemoglobin on presentation was 7.8. And he received 1 unit of packed red blood cells. Protonix IV was started. His H&H was trended patient received fluid resuscitation. NG tube was placed. Patient was prepped for colonoscopy. Patient had EGD and colonoscopy. Colonoscopy was unremarkable. EGD showed multiple AVMs/polyps that was bleeding. It was cauterized. After EGD and colonoscopy patient was started on renal-calorie controlled diet. After feeding patient had large maroon stools with blood clots and hematemesis of bright red blood about 2 cups. The case was discussed with hospitalist and patient was restarted on normal saline at 75 mL's per hour. One unit of packed red blood was ordered to be transfused; and 2 units to be typed and crossed and put on hold. Because of concern of history of heart failure IV fluids was ordered to be stopped when blood was ready. Case was discussed with [facility] and patient will be transferred. The physician that accepted patient was Dr. Perez. Patient Problems: Active and Suspected Problems GI bleed (Acute) - Physical Exam General: Alert, Oriented x3, Cooperative HEENT: Atraumatic, PERRLA, EOMI, Normocephalic Neck: Supple, No JVD, Negative Carotid Bruits Lungs: Clear to auscultation, Normal air movement Cardiovascular: Regular rate, No murmurs Abdomen: Bowel Sounds Present, Soft, Non Tender, Obese Extremities: No edema, Capillary Refill Less than 3 Seconds Skin: - - Pale Musculoskeletal: No Tenderness to Palpation of Joints or Extremities Neurological: Cranial nerves II-XII grossly intact Psych/Mental Status: Normal Affect, Appropriate Vital Signs Temp Pulse Resp BP Pulse Ox 98.1 F 60 16 104/45 L 97 04/29/19 19:27 04/29/19 19:27 04/29/19 19:27 04/29/19 19:27 04/29/19 19:27 Oxygen Delivery Method Room Air Weight: 121.2 kg Body Mass Index (BMI) 40.6 Finger Stick Blood Glucose 132 Intake and Output for Last 24 Hours 04/27/19 04/28/19 04/29/19 23:59 23:59 23:59 Intake Total 1826.25 / 1826.25 1580.00 / 1580.00 Output Total 100 / 100 200 / 200 Balance 1726.25 / 1726.25 1380.00 / 1380 Laboratory Tests Past 24 Hrs 04/28/19 04/28/19 04/28/19 07:15 07:15 23:10 WBC RBC Hgb 8.0 L Hct 25.3 L MCV MCH MCHC RDW Std Deviation RDW Coeff of Mt Plt Count MPV Immature Gran % (Auto) Neut % (Auto) Lymph % (Auto) Free[place] % (Auto) Eos % (Auto) Baso % (Auto) Absolute Neuts (auto) Absolute Lymphs (auto) Nucleated RBC % Differential Comment Platelet Estimate Macrocytosis PT INR APTT Sodium Potassium Chloride Carbon Dioxide Anion Gap BUN Creatinine Estim Creat Clear Calc Est GFR (MDRD) Af Amer Est GFR (MDRD) Non-Af BUN/Creatinine Ratio Glucose Hemoglobin A1c Calcium Phosphorus Magnesium Total Bilirubin AST ALT Alkaline Phosphatase Total Protein Albumin Globulin Albumin/Globulin Ratio Crossmatch See Detail See Detail 04/29/19 04/29/1904/29/19 04:49 04:49 04:49 WBC 6.2 RBC 2.29 L Hgb 8.0 L Hct 24.9 L MCV 108.7 H MCH 34.9 H MCHC 32.1 RDW Std Deviation 77.2 H RDW Coeff of Mt 19.6 H Plt Count 85 L MPV 13.3 H Immature Gran % (Auto) 0.600 Neut % (Auto) 64.1 Lymph % (Auto) 16.0 L Freeborn % (Auto) 13.9 H Eos % (Auto) 5.2 H Baso % (Auto) 0.2 Absolute Neuts (auto) 4.0 Absolute Lymphs (auto) 0.99 Nucleated RBC % 0.5 Differential Comment SCANNED Platelet Estimate ADEQUATE Macrocytosis 3+ PT 17.5 H INR 1.5 APTT 34.9 Sodium 144 Potassium 4.2 Chloride 108 H Carbon Dioxide 30.0 Anion Gap 6 BUN 45 H Creatinine 1.72 H Estim Creat Clear Calc 33.14 Est GFR (MDRD) Af Amer 49 L Est GFR (MDRD) Non-Af 41 L BUN/Creatinine Ratio 26.2 H Glucose 119 H Hemoglobin A1c Calcium 8.4 L Phosphorus 4.2 Magnesium 2.0 Total Bilirubin 0.90 AST 19 ALT 18 Alkaline Phosphatase 46 Total Protein 6.8 Albumin 2.8 L Globulin 4.0 Albumin/Globulin Ratio 0.7 L Crossmatch 04/29/19 04/29/19 04:49 17:20 WBC RBC Hgb 7.3 L Hct 23.9 L MCV MCH MCHC RDW Std Deviation RDW Coeff of Mt Plt Count MPV Immature Gran % (Auto) Neut % (Auto) Lymph % (Auto) Freeborn % (Auto) Eos % (Auto) Baso % (Auto) Absolute Neuts (auto) Absolute Lymphs (auto) Nucleated RBC % Differential Comment Platelet Estimate Macrocytosis PT INR APTT Sodium Potassium Chloride Carbon Dioxide Anion Gap BUN Creatinine Estim Creat Clear Calc Est GFR (MDRD) Af Amer Est GFR (MDRD) Non-Af BUN/Creatinine Ratio Glucose Hemoglobin A1c 5.1 Calcium Phosphorus Magnesium Total Bilirubin AST ALT Alkaline Phosphatase Total Protein Albumin Globulin Albumin/Globulin Ratio Crossmatch POC Glucose 04/29/19 04/29/19 04/29/19 16:44 12:22 06:55 POC Glucose 143 H 109 134 H 04/29/19 04/28/19 00:20 22:01 POC Glucose 115 H 105 Home Medications: Medications to take at Discharge Levothyroxine [Synthroid] 25 mcg PO DAILY 11/23/16 Pantoprazole Sodium [Protonix] 40 mg PO BID 11/23/16 Rifaximin [Xifaxan] 550 mg PO BID 11/23/16 Simvastatin [Zocor] 20 mg PO DAILY 11/23/16 Ferrous Sulfate 325 mg PO DAILY 10/05/17 Insulin Glargine [Lantus SoloStar Pen] 25 units SUBCUT BID 12/01/18 Insulin Lispro [Humalog KwikPen] 12 units SQ LUNCH 12/01/18 Insulin Lispro [Humalog KwikPen] 15 units SQ DINNER 12/01/18 Insulin Lispro [Humalog KwikPen] 16 unit SQ BREAKFAST 12/01/18 Lactulose [Constulose] 30 ml PO BID 12/01/18 Multivit-Min/FA/Lycopen/Lutein [Centrum Silver Men Tablet] 1 ea PO DAILY 12/01/18 Nadolol [Corgard (Beta Reggie)] 40 mg PO DAILY 12/01/18 Psyllium Husk [Metamucil] 0.4 gm PO QHS 12/01/18 Spironolactone 100 mg PO DAILY 12/01/18 furosemide 80 mg tablet 80 mg PO DAILY tab 12/18/18 Loratadine [Claritin] 10 mg PO PRN PRN 01/11/19 Albuterol IH (ProAir) [Proair Hfa] 2 puff INHALATION Q6H PRN PRN 04/28/19 Ipratropium/Albuterol Sulfate [Duoneb] 3 ml INHALATION Q6H.RT 04/28/19 Methylcellulose [Fiber Therapy] 500 mg PO DAILY 04/28/19 Nut.tx.gluc.intoler,Lac-Fr,Soy [Glucerna] 237 ml PO TID 04/28/19 Sucralfate [Carafate] 1 gm PO 4X/DAY 04/28/19 Primary Care Physician: Kayla Bernstein NP-C [Primary Care Provider] - Medical Necessity - Tobacco Use Smoking Status: Former smoker Tobacco Use: Non-smoker Meaningful Use Info Meaningful Use Diagnoses (Choose all that apply): None applicable Code Visit Inpatient E&M: 57687 Disch Hosp
[2019-04-29 21:01] LABS: Bedside Glucose 127 mg/dL (70-110)
[2019-04-29] MEDS: 0.9% NaCl Peripheral Flush Adult/Peds IV (21:13)
[2019-04-29] MEDS: Atorvastatin Calcium 10 MG Tablet PO (21:20)
[2019-04-29] MEDS: Sucralfate 1 GM Tablet PO (21:20)
--- NOTE | 2019-04-29 21:33 | NURSING ---
This nurse called patient's daughter Adide and informed her of pt. condition and pt. needs to be transferred to [facility] per Dr. Duncan. Informed daughter pt. will go to room 7118 and be transported soon. Her questions were answered and Addie verbalized understanding.
--- NOTE | 2019-04-29 21:36 | NURSING ---
Report called to [facility] Ellie Moncada RN at this time. transport to be set up and pt. moved with blood and protonix running.
--- NOTE | 2019-04-30 09:43 | CASEMGMT ---
EMMIE called [facility] and let the individual on the coverage line know patient was transferred to [facility]. Kate ALEJANDRA MSW
--- NOTE | 2019-04-30 13:12 | CASEMGMT ---
[facility] CM DC PHONE CALL DC DATE: 04/29/19 DC Disposition: Home Diagnosis on Discharge: GIB LACE/STRATA: 07/28 Attempted call to pt's phone. No answer and no message with name identifier. Cinthia ANDREA RN ACM
== END 2019-04-29 22:40 | disposition short-term general hospital (02) | DRG 378 ==
LOC: ED 07:25 → PCU 10:53
PROVIDERS: Anesthesiology; Surgery; Admitting Provider Internal Medicine; Emergency Provider Emergency Medicine; Family Provider Nurse Practitioner Family; PCP Nurse Practitioner Family; Referring Provider Internal Medicine; Visit Provider Internal Medicine
PROC: 0DJD8ZZ Inspection of Lower Intestinal Tract, Via Natural or Artificial Opening Endoscopic (ICD-10-PCS; CPT 45378; principal; 2019-04-29 08:25)
DX: K31.811 Angiodysplasia of stomach and duodenum with bleeding (principal); D62 Acute posthemorrhagic anemia; Z68.41 Body mass index [BMI] 40.0-44.9, adult; K31.7 Polyp of stomach and duodenum; E66.01 Morbid (severe) obesity due to excess calories; K72.10 Chronic hepatic failure without coma; K74.60 Unspecified cirrhosis of liver; E11.42 Type 2 diabetes mellitus with diabetic polyneuropathy; I48.0 Paroxysmal atrial fibrillation; N18.3 Chronic kidney disease, stage 3 (moderate); K44.9 Diaphragmatic hernia without obstruction or gangrene; K64.8 Other hemorrhoids; K64.4 Residual hemorrhoidal skin tags; E78.5 Hyperlipidemia, unspecified; I27.20 Pulmonary hypertension, unspecified; I35.0 Nonrheumatic aortic (valve) stenosis; E11.22 Type 2 diabetes mellitus with diabetic chronic kidney disease; Z79.4 Long term (current) use of insulin; Z87.891 Personal history of nicotine dependence; I12.9 Hypertensive chronic kidney disease with stage 1 through stage 4 chronic kidney disease, or unspecified chronic kidney disease
CPT/HCPCS: 36415; 71045; 74018; 78278; 80048; 80053; 80076; 82962; 83036; 83735; 84100; 85014; 85018; 85025; 85610; 85730; 86850; 86900; 86901; 86920; 88305; 93005; 94640; 97162; 97166; 97802; 99285; A9560; J7030; J7040; J7120; P9016; A4216; J1940; J2405

== ENCOUNTER 2019-05-12 17:44 | Inpatient (IN) | payer MEDICARE, SELFPAY ==
[2019-04-29 07:29] VITALS: BMI 40.6
[2019-05-12 18:38] VITALS: BP 125/49; PULSE 81; RESP 21; TEMP 36.8; O2SAT 98
[2019-05-12 18:50] VITALS: BMI 38.5
[2019-05-12 18:51] VITALS: BMI 38.5
[2019-05-12 20:12] VITALS: PULSE 78; O2SAT 93
[2019-05-12 21:26] LABS: Bedside Glucose 147 mg/dL (70-110)
[2019-05-12] MEDS: Atorvastatin Calcium 10 MG Tablet PO (21:40)
[2019-05-12] MEDS: Sucralfate 1 GM Tablet PO (21:40)
[2019-05-12] MEDS: Psyllium 1 PACKET PO (21:40)
[2019-05-12] MEDS: Menthol/Lanolin/Calamine/Znox 113 GM Tube 1 APPLIC TOPICAL (21:41)
--- NOTE | 2019-05-12 22:33 | HP.PCM_ITS ---
Problem List (1) Debility Status: Acute (2) Upper GI bleed Status: Acute (3) AVM (arteriovenous malformation) Status: Acute (4) Gastric polyp Status: Acute (5) Anemia Status: Acute (6) Atrial fibrillation Status: Chronic (7) CARBAJAL (nonalcoholic steatohepatitis) Status: Chronic (8) Diabetes mellitus Status: Chronic (9) Hypothyroidism Status: Chronic (10) GERD (gastroesophageal reflux disease) Status: Chronic (11) Aortic stenosis Status: Chronic Qualifiers: (12) Liver cirrhosis Status: Chronic Qualifiers: (13) CKD (chronic kidney disease) Status: Chronic (14) HTN (hypertension) Status: Chronic Qualifiers: History of Present Illness Date of Admission: 05/12/19 Chief Complaint: Here for rehabilitation, strengthening, prior to discharge home alone. The patient is a 79 year old Male with below past medical history presented to [facility] Emergency Department 04/28/2019 with GI bleed. 04/28/2019 RBC bleeding scan NEGATIVE for active bleeding. 04/29/2019 Dr. Duncan performed colonoscopy showed hemorrhoids, negative bleeding, negative masses, negative polyps. Dr. Duncan performed EGD showed multiple AVM's, polyps, bleeding cauterized. Recent [facility] EGD/colonoscopy showed multiple AVM's, polyps. Patient was transfused multiple units PRBC. Patient vomited blood, had bloody stools. 04/29/2019 Transferred to [facility] for further care. 04/30/2019 Consult GI. Aldactone, Lasix, Nadolol held. CT abdomen/pelvis no contrast ordered. 04/30/2019 EGD showed multiple AVM's, polyps bleeding treated with Argon Plasma coagulation. Trend H&H, IV PPI. Avoid NSAIDs, blood thinners. Transfuse if hemoglobin < 7.0. Oxygen for hypoxia. Patient also has history of cirrhosis secondary to CARBAJAL. Ammonia level was elevated, treated with Lactulose, ammonia monitored, no signs of hepatic encephalopathy. 05/05/2019 Right upper quadrant ultrasound showed gallbladder sludge. Sleep apnea treated with BiPAP. 05/12/2019 Admit to TCU with debility, here for rehabilitation, strengthening, prior to discharge home alone. Past Medical History Past Medical History (Chronic Problems): Chronic Problems Atrial fibrillation (Chronic) CARBAJAL (nonalcoholic steatohepatitis) (Chronic) Diabetes mellitus (Chronic) Hypothyroidism (Chronic) GERD (gastroesophageal reflux disease) (Chronic) Paroxysmal atrial fibrillation (Chronic) History of left heart catheterization (Chronic 12/04/18) Normal coronary arteries. The patient has pulmonary hypertension which is mild. Right heart pressures - mildly elevated. Medical management of aortic stenosis. Would not recommend asa or plavix given recent anemia. Medical management of afib. Manual sheath removal. Total of 30 ccs of IV contrast dye for limited LHC; NO LV gram performed due to CRI. Morbid obesity (Chronic) Aortic stenosis (Chronic) Chronic anemia (Chronic) Type 2 diabetes mellitus (Chronic) Hyperlipidemia (Chronic) Liver cirrhosis (Chronic) Chronic kidney disease, stage III (moderate) (Chronic) CKD (chronic kidney disease) (Chronic) HTN (hypertension) (Chronic) Medical History: Medical History Acute respiratory failure with hypoxia (Acute) J96.01 CHF exacerbation (Acute) I50.9 Morbid obesity (Chronic) E66.01 Pleural effusion (Acute) J90 Aortic stenosis (Chronic) I35.0 Acute chest pain (Acute) R07.9 Hypoxemia (Acute) R09.02 Dyspnea (Acute) R06.00 Chronic anemia (Chronic) D64.9 Type 2 diabetes mellitus (Chronic) E11.9 Hyperlipidemia (Chronic) E78.5 Liver cirrhosis (Chronic) K74.60 Chronic kidney disease, stage III (moderate) (Chronic) N18.3 CKD (chronic kidney disease) (Chronic) N18.9 HTN (hypertension) (Chronic) I10 Allergies No Known Allergies Allergy (Verified 01/11/19 06:36) Home Medications: Ambulatory Orders Medication Instructions Recorded Levothyroxine [Synthroid] 25 mcg PO DAILY 11/23/16 Pantoprazole Sodium [Protonix] 40 mg PO BID 11/23/16 Rifaximin [Xifaxan] 550 mg PO BID 11/23/16 Simvastatin [Zocor] 20 mg PO DAILY 11/23/16 Ferrous Sulfate 325 mg PO DAILY 10/05/17 Insulin Glargine [Lantus SoloStar 12 units SUBCUT QHS 12/01/18 Pen] Insulin Lispro [Humalog KwikPen] 3 units SC TIDCM 12/01/18 Multivit-Min/FA/Lycopen/Lutein 1 ea PO DAILY 12/01/18 [Centrum Silver Men Tablet] Nadolol [Corgard (Beta Reggie)] 40 mg PO DAILY 12/01/18 Psyllium Husk [Metamucil] 0.4 gm PO QHS 12/01/18 furosemide 80 mg tablet 40 mg PO BID tab 12/18/18 Loratadine [Claritin] 10 mg PO PRN PRN 01/11/19 Albuterol IH (ProAir) [Proair Hfa] 2 puff INHALATION Q6H PRN PRN 04/28/19 Ipratropium/Albuterol Sulfate 3 ml INHALATION Q6H PRN PRN 04/28/19 [Duoneb] Nut.tx.gluc.intoler,Lac-Fr,Soy 237 ml PO TID 04/28/19 [Glucerna] Sucralfate [Carafate] 1 gm PO 4X/DAY 04/28/19 Surgical History: Surgical History (Last Updated 12/04/18 @ 17:53 by Sienna Carlson) History of left heart catheterization (Chronic) Onset Date: 12/04/18 Z98.890 Normal coronary arteries. The patient has pulmonary hypertension which is mild. Right heart pressures - mildly elevated. Medical management of aortic stenosis. Would not recommend asa or plavix given recent anemia. Medical management of afib. Manual sheath removal. Total of 30 ccs of IV contrast dye for limited LHC; NO LV gram performed due to CRI. Surgical History: herniorrhaphy, - - prostate surgery, circumcision Psychiatric History: No pertinent psych hx Lives: Alone - Family monitors with cameras remotely, and visit daily. Smoking Status: Former smoker Tobacco Use: Non-smoker Alcohol: None Drugs: None - *Family History Maternal History Items: Diabetes Paternal History Items: Cancer - Prostate Review of Systems Constitutional: Reports: Malaise, Weakness, Fatigue. Denies: Chills, Fever, Weight Change HEENT: Denies: Head Aches, Sinus Congestion, Sinus Drainage Cardiovascular: Denies: Chest Pain, Palpitations Respiratory: Denies: Cough, Shortness of breath at rest, Sputum production Gastrointestinal: Denies: Abdominal Pain, Nausea, Vomiting Genitourinary: Denies: Dysuria Musculoskeletal: Denies: Joint Pain, Joint Tenderness Skin: Denies: Rash, Wounds Neurological: Denies: Numbness, Tingling, Focal weakness Psychiatric: Denies: Anxiety, Depression, Homicidal Ideations, Suicidal Ideations Hematologic/ Lymphatic: Denies: Easy Bruising, Easy Bleeding VTE Information - Inpt Only VTE Present on Admission: No VTE Mechan Device Prophylaxis: Knee High MILLI Hose VTE Pharm Prophylaxis ordered?: No Reason prophylaxis not ordered:: Medical Contraindication Patient Problems: Active and Suspected Problems Debility (Acute) Upper GI bleed (Acute) AVM (arteriovenous malformation) (Acute) Gastric polyp (Acute) Anemia (Acute) - Physical Exam General: Alert, Oriented x3, Cooperative HEENT: Atraumatic, PERRLA, EOMI, Normocephalic Neck: Supple, No JVD, Negative Carotid Bruits Lungs: Clear to auscultation, Normal air movement Cardiovascular: Regular rate, No murmurs Abdomen: Bowel Sounds Present, Soft, Non Tender Extremities: No edema, Capillary Refill Less than 3 Seconds Skin: No rashes, No breakdown Musculoskeletal: No Tenderness to Palpation of Joints or Extremities Neurological: Cranial nerves II-XII grossly intact Psych/Mental Status: Normal Affect, Appropriate Vital Signs Temp Pulse Resp BP Pulse Ox 98.2 F 78 21 H 125/49 H 93 05/12/19 18:38 05/12/19 20:12 05/12/19 18:38 05/12/19 18:38 05/12/19 20:12 Oxygen Delivery Method Room Air Weight: 118.4 kg Body Mass Index (BMI) 38.5 Finger Stick Blood Glucose 132 Intake and Output for Last 24 Hours 05/10/19 05/11/19 05/12/19 23:59 23:59 23:59 Intake Total 180 / 180 Balance 180 / 180 POC Glucose 05/12/19 21:19 POC Glucose 147 H Assessment/Plan All Active Problems GI bleed (Acute) Debility (Acute) Upper GI bleed (Acute) AVM (arteriovenous malformation) (Acute) Gastric polyp (Acute) Anemia (Acute) Acute respiratory failure with hypoxia (Acute) CHF exacerbation (Acute) Pleural effusion (Acute) Acute chest pain (Acute) Hypoxemia (Acute) Dyspnea (Acute) Hyperglycemia (Acute) 79 year old male with below past medical history hospitalized for Upper GI bleed secondary to multiple gastric AVM's, gastric ulcers, requiring EGD/cauterization, transfusion, complicated by CARBAJAL cirrhosis/hyperammonemia, admitted to TCU with debility, here for rehabilitation, strengthening, prior to discharge home alone. * Debility - PT/OT. * Pain - Tylenol 1000MG Q8H PRN mild pain. * Bowel - Metamucil 1 packet QHS. * Pneumonia vaccination - Administer Prevnar 13 and/or Pneumovax 23 as necessary. * DVT prophylaxis - Milli Hose, anticoagulation contraindicated due to GI bleed. * Hyperlipidemia - Atorvastatin 10MG QHS. * Iron deficiency anemia - Ferrex 150MG daily. * Edema/Ascites - Lasix 40MG BID. * Nutrition - Glucerna 240ML TID. * Diabetes Mellitus II - Lantus 12 units QHS. * Shortness of breath - Duoneb 3ML Q6H PRN. * Hypothyroidism - Levothyroxine 25MCG daily. * Allergic Rhinitis - Loratadine 10MG daily PRN, MVI daily. * Skin irritation - Calmoseptine BID, Eucerin daily. * Portal hypertension - Nadolol 40MG daily. * Gastric AVM's, polyps - Pantoprazole 40MG BID, Carafate 1GM QACHS. * CARBAJAL cirrhosis/Hepatic encephalopathy - Xifaxan 550MG BID, low threshold to ch jorge luis ammonia levels, add Lactulose.
[2019-05-13] MEDS: Menthol/Lanolin/Calamine/Znox 113 GM Tube 1 APPLIC TOPICAL ×2 (05:27→22:53)
[2019-05-13] MEDS: Levothyroxine 25 MCG TABLET PO (05:27)
[2019-05-13] MEDS: Sucralfate 1 GM Tablet PO ×4 (05:27→22:50)
[2019-05-13] MEDS: Pantoprazole Sodium 40 MG Tablet PO ×2 (05:27→17:10)
[2019-05-13] MEDS: Furosemide 40 MG Tablet PO ×2 (05:27→17:10)
[2019-05-13] MEDS: rifAXIMin 550 MG Tablet PO ×2 (05:27→17:10)
[2019-05-13] MEDS: Nadolol 40 MG Tablet PO (05:28)
[2019-05-13 05:40] LABS: Absolute Lymphocyte Count 0.67 X10^3/uL (0.83-4.51); Absolute Neutrophil Count 1.7 X10^3/uL (2.0-7.7); Basophil# 0.01 X10^3/uL; Basophil% 0.3 % (0-1); Eosinophil# 0.15 X10^3/uL; Hematocrit 24.9 % (40-54); Hemoglobin 7.7 g/dL (13.0-16.5); Lymphocyte # 0.67 X10^3/ul (4.0); Lymphocyte % 22.3 % (19-41); Mean Corp Hgb Conc 30.9 g/dL (32-36); Mean Corpuscular Hgb 30.2 pg (27.0-32.0); Mean Corpuscular Volume 97.6 fL (80-94); Mean Platelet Vol. 12.7 fl (6.2-12.0); Monocyte# 0.42 X10^3/uL; NRBC Flagged by Analyzer 0 % (0-5); Neutrophil # 1.73 X10^3/uL (2.7-7.7); Neutrophil % 57.7 % (47-70); Platelet Count 74 K/mm3 (150-450); RBC Distribution Width SD 60.8 fl (35.1-43.9); Red Blood Count 2.55 M/mm3 (4.6-6.2)
[2019-05-13 06:03] LABS: Anion Gap 8 (5-15); BUN 32 mg/dL (7-18); BUN/Creat Ratio 19.6 RATIO (10-20); Calcium,Total 8.4 mg/dL (8.5-10.1); Chloride 96 mmol/L (98-107); Creatinine, Serum 1.63 mg/dL (0.70-1.30); EST Glomerular Filtration Rate 44 mL/min (>60); Est Glom Filt Rate - Afr Amer 53 mL/min (>60); Estimated Creatinine Clearance 36.15 ml/min; Glucose 124 mg/dL (74-106); Potassium 4.1 mmol/L (3.5-5.1); Sodium Level 137 mmol/L (136-145)
[2019-05-13 06:31] LABS: Bedside Glucose 132 mg/dL (70-110)
[2019-05-13 08:10] VITALS: O2SAT 93
--- NOTE | 2019-05-13 08:29 | CPS ---
Patient has Incentive Spirometer from another facility, patient expressed understanding.
[2019-05-13] MEDS: Iron Polysaccharide Complex 150 MG CAPSULE PO (08:36)
[2019-05-13] MEDS: Multivitamins,Ther W-Minerals Tablet 1 TABLET PO (08:36)
[2019-05-13] MEDS: Tuberculin,Purif.prot.deriv. 50 TU/ML Vial 5 ML ID (10:24)
[2019-05-13] MEDS: Acetaminophen 500 MG Tablet 1000 MG PO (11:08)
[2019-05-13] MEDS: Glucerna Shake 120 ML LIQUID 240 ML PO (11:10)
[2019-05-13 11:12] VITALS: RESP 18; O2SAT 98
[2019-05-13 11:15] LABS: Bedside Glucose 131 mg/dL (70-110)
--- NOTE | 2019-05-13 12:49 | CASEMGMT ---
Social Work Met with patient for initial assessment. Patient had flat affect or inappropriate affect per the topic. PT referred to ST for screen as this noticed during session as well. Pt gave permission to speak to his children for further information. Pt has 6 children - 3 are very involved. Spoke with lisha Arita, whom states is the [facility] POA. Rose Mary, son [phone], lives in the upstairs apartment, and pt lives in the downstairs apartment - states he is financial POA. Left message with son to bring in POA paperwork. Spoke with lisha Real, whom states pt was living with her for the past 5 years and she was his primary caregiver through [employer] [facility]. About 4 months ago, pt moved into the apartment, and she is employed through [employer]. Pt is approved for 18 hours/wk, but [facility] states they can increase hours at DC if needed. Pt has two case management coordinator. Renetta Bonds through [facility] [phone] and Yessica Nelson through [facility] [phone]. Explained to pt insurance coverage with [employer] 05/17 and continued stay is not guaranteed. Will discuss progress in care plan meeting 05/19 which the 3 children state they will be in attendance. Will continue to follow. PRAKASH MonsivaisW
[2019-05-13 16:00] VITALS: BP 106/55; PULSE 61; RESP 20; TEMP 36; O2SAT 98
[2019-05-13 17:06] LABS: Bedside Glucose 112 mg/dL (70-110)
[2019-05-13 21:51] LABS: Bedside Glucose 151 mg/dL (70-110)
[2019-05-13] MEDS: Atorvastatin Calcium 10 MG Tablet PO (22:50)
[2019-05-13] MEDS: Psyllium 1 PACKET PO (22:50)
[2019-05-14] MEDS: Nadolol 40 MG Tablet PO (05:21)
[2019-05-14] MEDS: rifAXIMin 550 MG Tablet PO ×2 (05:21→17:10)
[2019-05-14] MEDS: Levothyroxine 25 MCG TABLET PO (05:21)
[2019-05-14] MEDS: Pantoprazole Sodium 40 MG Tablet PO ×2 (05:21→17:10)
[2019-05-14] MEDS: Sucralfate 1 GM Tablet PO ×4 (05:21→21:40)
[2019-05-14] MEDS: Furosemide 40 MG Tablet PO ×2 (05:21→17:09)
[2019-05-14] MEDS: Menthol/Lanolin/Calamine/Znox 113 GM Tube 1 APPLIC TOPICAL ×2 (05:23→21:43)
[2019-05-14 06:35] LABS: Bedside Glucose 116 mg/dL (70-110)
[2019-05-14] MEDS: Multivitamins,Ther W-Minerals Tablet 1 TABLET PO (08:38)
[2019-05-14] MEDS: Iron Polysaccharide Complex 150 MG CAPSULE PO (08:38)
--- NOTE | 2019-05-14 09:18 | PCM.PN.RX ---
<Mike Zamorano D - Last Filed: 05/14/19 09:18> Progress Note - Pharmacy Subjective: TCU Admission Objective: Allergies No Known Allergies Allergy (Verified 01/11/19 06:36) Current Medications Generic Name Dose Route Start Last Admin Trade Name Freq PRN Reason Stop Dose Admin Acetaminophen 1,000 mg 05/12/19 22:52 05/13/19 11:08 Tylenol PO 1,000 mg Q8H PRN PRN Administration MILD PAIN (1-3/10) Albuterol/Ipratropium 3 ml 05/12/19 19:02 Duoneb INHALATION Q6H PRN PRN SOB &/OR WHEEZING Atorvastatin Calcium 10 mg 05/12/19 22:00 05/13/19 22:50 Lipitor PO 10 mg QHS REJI Administration Calamine/Phenol 1 applic 05/12/19 22:00 05/14/19 05:23 Calmoseptine Ointment TOPICAL 1 applicatio 0600,2200 [facility] Administration Protocol Calcium Carbonate 500 mg 05/13/19 10:05 Tums PO TIDCM PRN INDIGESTION Furosemide 40 mg 05/13/19 06:00 05/14/19 05:21 Lasix PO 40 mg BID REJI Administration Insulin Glargine 12 units 05/12/19 22:00 05/13/19 22:50 Lantus (Bkc) SC 12 units QHS REJI Administration Levothyroxine Sodium 25 mcg 05/13/19 06:00 05/14/19 05:21 Synthroid PO 25 mcg DAILY REJI Administration Loratadine 10 mg 05/12/19 19:02 Claritin PO DAILY PRN Allergy Multi-Ingredient Cream 1 applic 05/12/19 22:00 05/13/19 22:52 Eucerin TOPICAL 1 applicatio 220 [facility] Administration Protocol Multivitamins/Minerals 1 tablet 05/13/19 08:00 05/14/19 08:38 Multivitamin With Minerals PO 1 tablet DAILY@0800 REJI Administration Nadolol 40 mg 05/13/19 06:00 05/14/19 05:21 Corgard PO 40 mg DAILY REJI Administration Pantoprazole Sodium 40 mg 05/13/19 06:00 05/14/19 05:21 Protonix PO 40 mg BID REJI Administration Polysaccharide Iron Complex 150 mg 05/13/19 08:00 05/14/19 08:38 Ferrex 150 PO 150 mg DAILYCM REJI Administration Psyllium Hydrophilic Mucilloid 1 packet 05/12/19 22:00 05/13/19 22:50 Metamucil PO 1 packet QHS REJI Administration Rifaximin 550 mg 05/13/19 06:00 05/14/19 05:21 Xifaxan PO 550 mg BID REJI Administration Sucralfate 1 gm 05/12/19 22:00 05/14/19 05:21 Carafate PO 1 gm 1HR_ACHS REJI Administration Tuberculin PPD 5 tu 05/20/19 10:00 Tubersol, Aplisol, Ppd ID 05/20/19 10:01 X1 ONE Problem List Debility (Acute) Upper GI bleed (Acute) AVM (arteriovenous malformation) (Acute) Gastric polyp (Acute) Anemia (Acute) Atrial fibrillation (Chronic) CARBAJAL (nonalcoholic steatohepatitis) (Chronic) Diabetes mellitus (Chronic) Hypothyroidism (Chronic) GERD (gastroesophageal reflux disease) (Chronic) Vital Signs Temp Pulse Resp BP Pulse Ox 96.8 F L 61 20 H 106/55 L 98 05/13/19 16:00 05/13/19 16:00 05/13/19 16:00 05/13/19 16:00 05/13/19 16:00 Oxygen Delivery Method Room Air Weight: 116.573 kg Body Mass Index (BMI) 38.5 Finger Stick Blood Glucose 132 Sodium 137 mmol/L (136-145) 05/13/19 05:30 Potassium 4.1 mmol/L (3.5-5.1) 05/13/19 05:30 Chloride 96 mmol/L (98-107) L 05/13/19 05:30 Carbon Dioxide 33.0 mmol/L (21.0-32.0) H 05/13/19 05:30 Anion Gap 8 (5-15) 05/13/19 05:30 BUN 32 mg/dL (7-18) H 05/13/19 05:30 Creatinine 1.63 mg/dL (0.70-1.30) H 05/13/19 05:30 Est GFR (MDRD) Af Amer 53 mL/min (>60) L 05/13/19 05:30 Est GFR (MDRD) Non-Af 44 mL/min (>60) L 05/13/19 05:30 BUN/Creatinine Ratio 19.6 RATIO (10-20) 05/13/19 05:30 Glucose 124 mg/dL (74-106) H 05/13/19 05:30 Assessment/Plan: 1) Pain APAP for mild pain. Continue to monitor daily pain scores, prn medication. 2) Portal Hypertension Nadolol. Continue to monitor BP/HR. 3) CARBAJAL Rifaximin, furosemide. Continue to monitor BP/HR, renal function, electrolytes, swelling. 4) DM2 Insulin glargine, atorvastatin. Continue to monitor, lipids, BGT, s/s hyper/hypoglycemia. 5) Hypothyroidism Levothyroxine. Continue to monitor s/s hyper/hypothyroidism. 6) GI Pantoprazole, sucralfate, TUMS prn. Continue to monitor prn medication, s/s GI distress. 7) Nutrition Fe, multivitamin. Continue to monitor clinically. Psychotropic Medications: None Unnecessary Medications: None Bowel Regimen: 8) Psyllium at HS. Continue to monitor for constipation/diarrhea. Date of Note:: 05/14/19 - Provider Comments Provider responsibility: Provider responsible to enter orders to implement recommendations <Diego Dawkins Chi - Last Filed: 05/14/19 13:36> Progress Note - Pharmacy Subjective: [] Objective: Allergies No Known Allergies Allergy (Verified 01/11/19 06:36) Current Medications Generic Name Dose Route Start Last Admin Trade Name Freq PRN Reason Stop Dose Admin Acetaminophen 1,000 mg 05/12/19 22:52 05/13/19 11:08 Tylenol PO 1,000 mg Q8H PRN PRN Administration MILD PAIN (1-3/10) Albuterol/Ipratropium 3 ml 05/12/19 19:02 Duoneb INHALATION Q6H PRN PRN SOB &/OR WHEEZING Atorvastatin Calcium 10 mg 05/12/19 22:00 05/13/19 22:50 Lipitor PO 10 mg QHS REJI Administration Calamine/Phenol 1 applic 05/12/19 22:00 05/14/19 05:23 Calmoseptine Ointment TOPICAL 1 applicatio 0600,2200 [facility] Administration Protocol Calcium Carbonate 500 mg 05/13/19 10:05 Tums PO TIDCM PRN INDIGESTION Furosemide 40 mg 05/13/19 06:00 05/14/19 05:21 Lasix PO 40 mg BID REJI Administration Insulin Glargine 12 units 05/12/19 22:00 05/13/19 22:50 Lantus (Bkc) SC 12 units QHS REJI Administration Levothyroxine Sodium 25 mcg 05/13/19 06:00 05/14/19 05:21 Synthroid PO 25 mcg DAILY REJI Administration Loratadine 10 mg 05/12/19 19:02 Claritin PO DAILY PRN Allergy Multi-Ingredient Cream 1 applic 05/12/19 22:00 05/13/19 22:52 Eucerin TOPICAL 1 applicatio 2200 REJI Administration Protocol Multivitamins/Minerals 1 tablet 05/13/19 08:00 05/14/19 08:38 Multivitamin With Minerals PO 1 tablet DAILY@0800 [facility] Administration Nadolol 40 mg 05/13/19 06:00 05/14/19 05:21 Corgard PO 40 mg DAILY REJI Administration Pantoprazole Sodium 40 mg 05/13/19 06:00 05/14/19 05:21 Protonix PO 40 mg BID REJI Administration Polysaccharide Iron Complex 150 mg 05/13/19 08:00 05/14/19 08:38 Ferrex 150 PO 150 mg DAILYCM REJI Administration Psyllium Hydrophilic Mucilloid 1 packet 05/12/19 22:00 05/13/19 22:50 Metamucil PO 1 packet QHS [facility] Administration Rifaximin 550 mg 05/13/19 06:00 05/14/19 05:21 Xifaxan PO 550 mg BID REJI Administration Sucralfate 1 gm 05/12/19 22:00 05/14/19 11:08 Carafate PO 1 gm 1HR_ACHS REJI Administration Tuberculin PPD 5 tu 05/20/19 10:00 Tubersol, Aplisol, Ppd ID 05/20/19 10:01 X1 ONE Problem List Debility (Acute) Upper GI bleed (Acute) AVM (arteriovenous malformation) (Acute) Gastric polyp (Acute) Anemia (Acute) Atrial fibrillation (Chronic) CARBAJAL (nonalcoholic steatohepatitis) (Chronic) Diabetes mellitus (Chronic) Hypothyroidism (Chronic) GERD (gastroesophageal reflux disease) (Chronic) Vital Signs Temp Pulse Resp BP Pulse Ox 96.8 F L 61 20 H 106/55 L 98 05/13/19 16:00 05/13/19 16:00 05/13/19 16:00 05/13/19 16:00 05/13/19 16:00 Oxygen Delivery Method Room Air Weight: 116.573 kg Body Mass Index (BMI) 38.5 Finger Stick Blood Glucose 132 Sodium 137 mmol/L (136-145) 05/13/19 05:30 Potassium 4.1 mmol/L (3.5-5.1) 05/13/19 05:30 Chloride 96 mmol/L (98-107) L 05/13/19 05:30 Carbon Dioxide 33.0 mmol/L (21.0-32.0) H 05/13/19 05:30 Anion Gap 8 (5-15) 05/13/19 05:30 BUN 32 mg/dL (7-18) H 05/13/19 05:30 Creatinine 1.63 mg/dL (0.70-1.30) H 05/13/19 05:30 Est GFR (MDRD) Af Amer 53 mL/min (>60) L 05/13/19 05:30 Est GFR (MDRD) Non-Af 44 mL/min (>60) L 05/13/19 05:30 BUN/Creatinine Ratio 19.6 RATIO (10-20) 05/13/19 05:30 Glucose 124 mg/dL (74-106) H 05/13/19 05:30 Assessment/Plan: Psychotropic Medications: Unnecessary Medications: Bowel Regimen: - Provider Comments Provider responsibility: Provider responsible to enter orders to implement recommendations Provider Comments to Recommendations by Pharmacy: Agree
[2019-05-14 11:21] LABS: Bedside Glucose 153 mg/dL (70-110)
[2019-05-14 15:52] VITALS: BP 112/49; PULSE 62; RESP 20; TEMP 36.6; O2SAT 96
[2019-05-14 16:56] LABS: Bedside Glucose 119 mg/dL (70-110)
[2019-05-14 21:11] LABS: Bedside Glucose 259 mg/dL (70-110)
[2019-05-14] MEDS: Atorvastatin Calcium 10 MG Tablet PO (21:40)
[2019-05-14] MEDS: Psyllium 1 PACKET PO (21:40)
[2019-05-15 06:26] LABS: Bedside Glucose 128 mg/dL (70-110)
[2019-05-15] MEDS: Nystatin Powder 15gm Bottle 1 APPLIC TOPICAL ×3 (06:42→21:47)
[2019-05-15] MEDS: Menthol/Lanolin/Calamine/Znox 113 GM Tube 1 APPLIC TOPICAL ×2 (06:42→21:45)
[2019-05-15] MEDS: Furosemide 40 MG Tablet PO ×2 (06:43→16:49)
[2019-05-15] MEDS: Levothyroxine 25 MCG TABLET PO (06:43)
[2019-05-15] MEDS: rifAXIMin 550 MG Tablet PO ×2 (06:43→16:49)
[2019-05-15] MEDS: Sucralfate 1 GM Tablet PO ×4 (06:43→21:46)
[2019-05-15] MEDS: Pantoprazole Sodium 40 MG Tablet PO ×2 (06:43→16:49)
[2019-05-15] MEDS: Nadolol 40 MG Tablet PO (06:43)
[2019-05-15] MEDS: Acetaminophen 500 MG Tablet 1000 MG PO (06:46)
[2019-05-15] MEDS: Multivitamins,Ther W-Minerals Tablet 1 TABLET PO (08:02)
[2019-05-15] MEDS: Iron Polysaccharide Complex 150 MG CAPSULE PO (08:02)
[2019-05-15 11:25] LABS: Bedside Glucose 153 mg/dL (70-110)
[2019-05-15 15:25] VITALS: BP 113/52; PULSE 63; RESP 19; TEMP 36.9; O2SAT 96
[2019-05-15 16:30] LABS: Bedside Glucose 150 mg/dL (70-110)
[2019-05-15 21:36] LABS: Bedside Glucose 146 mg/dL (70-110)
[2019-05-15] MEDS: Psyllium 1 PACKET PO (21:47)
[2019-05-15] MEDS: Atorvastatin Calcium 10 MG Tablet PO (21:47)
--- NOTE | 2019-05-15 22:46 | PCA ---
patient refused to get a shower tonight. This PHOTOGRAPHER MOTION PICTURE gave patient a bed bath. Patient requested to get a shower in the AM instead.
[2019-05-16] MEDS: Hydrocortisone 2.5% Crm 1 APPLIC TOPICAL (05:45)
[2019-05-16] MEDS: Menthol/Lanolin/Calamine/Znox 113 GM Tube 1 APPLIC TOPICAL ×2 (05:46→21:26)
[2019-05-16] MEDS: Nystatin Powder 15gm Bottle 1 APPLIC TOPICAL ×3 (05:46→21:24)
[2019-05-16] MEDS: Nadolol 40 MG Tablet PO (05:47)
[2019-05-16] MEDS: Sucralfate 1 GM Tablet PO ×4 (05:47→21:22)
[2019-05-16] MEDS: Levothyroxine 25 MCG TABLET PO (05:47)
[2019-05-16] MEDS: Pantoprazole Sodium 40 MG Tablet PO ×2 (05:47→16:59)
[2019-05-16] MEDS: Furosemide 40 MG Tablet PO ×2 (05:47→16:59)
[2019-05-16] MEDS: rifAXIMin 550 MG Tablet PO ×2 (05:47→16:59)
[2019-05-16 06:30] LABS: Bedside Glucose 117 mg/dL (70-110)
[2019-05-16 06:33] LABS: Hematocrit 25.5 % (40-54); Hemoglobin 7.9 g/dL (13.0-16.5)
[2019-05-16 06:41] LABS: POSITIVE MORPHOLOGY NO
[2019-05-16] MEDS: Iron Polysaccharide Complex 150 MG CAPSULE PO (08:56)
[2019-05-16] MEDS: Multivitamins,Ther W-Minerals Tablet 1 TABLET PO (08:56)
[2019-05-16 11:36] LABS: Bedside Glucose 150 mg/dL (70-110)
[2019-05-16 15:32] VITALS: BP 139/46; PULSE 56; RESP 20; TEMP 36.6; O2SAT 96
[2019-05-16] MEDS: Atorvastatin Calcium 10 MG Tablet PO (21:22)
[2019-05-16 21:51] LABS: Bedside Glucose 161 mg/dL (70-110)
[2019-05-17] MEDS: Nystatin Powder 15gm Bottle 1 APPLIC TOPICAL ×3 (05:30→21:52)
[2019-05-17] MEDS: Sucralfate 1 GM Tablet PO ×4 (05:30→21:49)
[2019-05-17] MEDS: Menthol/Lanolin/Calamine/Znox 113 GM Tube 1 APPLIC TOPICAL ×2 (05:30→21:53)
[2019-05-17] MEDS: Furosemide 40 MG Tablet PO ×2 (05:30→17:54)
[2019-05-17] MEDS: Pantoprazole Sodium 40 MG Tablet PO ×2 (05:30→17:55)
[2019-05-17] MEDS: rifAXIMin 550 MG Tablet PO ×2 (05:30→17:56)
[2019-05-17] MEDS: Levothyroxine 25 MCG TABLET PO (05:30)
[2019-05-17] MEDS: Nadolol 40 MG Tablet PO (05:30)
[2019-05-17 06:30] LABS: Bedside Glucose 117 mg/dL (70-110)
[2019-05-17] MEDS: Acetaminophen 500 MG Tablet 1000 MG PO (07:54)
[2019-05-17] MEDS: Multivitamins,Ther W-Minerals Tablet 1 TABLET PO (07:54)
[2019-05-17] MEDS: Iron Polysaccharide Complex 150 MG CAPSULE PO (07:54)
--- NOTE | 2019-05-17 11:26 | CASEMGMT ---
Insurance: continues stay review faxed to [facility] this day . Auth # [id number]
--- NOTE | 2019-05-17 13:14 | CASEMGMT ---
Insurance: Continued stay approved until 05/22/19. LCD 05/21 with D/C to be planned for Friday05/22/19. auth # [id number]
--- NOTE | 2019-05-17 14:58 | CASEMGMT ---
Social Work Insurance issued LCD 05/21, DC home 05/22. Notified pt - pt does not wish to appeal. Pt requested SW to contact sonRose Mary of information. Notified son, whom will be at attendance care plan meeting Friday. Will discuss progress and further DC needs at that time. Pt does receive 18 hrs of MOTION PICTURE SET UP WORKER from dtr through [employer]. Will continue to follow. Angy Ley, PRAKASH LUNSFORDW
[2019-05-17 16:00] VITALS: BP 107/44; PULSE 58; RESP 20; TEMP 36.4; O2SAT 94
--- NOTE | 2019-05-17 16:55 | NURSING ---
speech consult in for cognition
[2019-05-17 17:21] LABS: Bedside Glucose 142 mg/dL (70-110)
--- NOTE | 2019-05-17 19:59 | PCM.DC ---
- Discharge Diagnoses Current Active Problems: Current Active and Chronic Problems Debility (Acute) Upper GI bleed (Acute) AVM (arteriovenous malformation) (Acute) Gastric polyp (Acute) Anemia (Acute) Atrial fibrillation (Chronic) CARBAJAL (nonalcoholic steatohepatitis) (Chronic) Diabetes mellitus (Chronic) Hypothyroidism (Chronic) GERD (gastroesophageal reflux disease) (Chronic) You will use the following diet at home:: No restrictions, Regular Your food should be the consistency of: Regular, Puree Discharge Activity: Return to Normal Activity, May Shower, Use Walker Weight Bearing Status: Weight bearing as tolerated Call your doctor if you observe: Fever of 101 or Higher, Inability to urinate, Inability to have a bowel movement, Shortness of breath, Chest pain, Uncontrolled pain Allergies/Adverse Reactions: Allergies No Known Allergies Allergy (Verified 01/11/19 06:36) Medications to take at Discharge Levothyroxine [Synthroid] 25 mcg PO DAILY 11/23/16 Pantoprazole Sodium [Protonix] 40 mg PO BID 11/23/16 Rifaximin [Xifaxan] 550 mg PO BID 11/23/16 Simvastatin [Zocor] 20 mg PO DAILY 11/23/16 Insulin Glargine [Lantus SoloStar Pen] 12 units SUBCUT QHS 12/01/18 Multivit-Min/FA/Lycopen/Lutein [Centrum Silver Men Tablet] 1 ea PO DAILY 12/01/18 Nadolol [Corgard (Beta Reggie)] 40 mg PO DAILY 12/01/18 Psyllium Husk [Metamucil] 0.4 gm PO QHS 12/01/18 Loratadine [Claritin] 10 mg PO PRN PRN 01/11/19 Albuterol IH (ProAir) [Proair Hfa] 2 puff INHALATION Q6H PRN PRN 04/28/19 Sucralfate [Carafate] 1 gm PO 4X/DAY 04/28/19 Acetaminophen [Tylenol] 1,000 mg PO Q8H PRN PRN tab 05/17/19 Calcium Carbonate [Tums] 500 mg PO TIDCM PRN tab 05/17/19 Furosemide [Lasix] 40 mg PO BID #60 tab 05/17/19 Hydrocortisone 2.5% Crm [Hytone] 1 applic TOPICAL BID PRN PRN #1 tube 05/17/19 Iron Polysaccharide Complex [Ferrex 150] 150 mg PO DAILYCM #30 cap 05/17/19 Menthol/Lanolin/Calamine/Znox [Calmoseptine Ointment] 1 applic TOPICAL 0600,2200 tube 05/17/19 Mineral Oil/Petrolatum,White [Eucerin] 1 applic TOPICAL 2200 jar 05/17/19 Nystatin Powder [Mycostatin Powder] 1 applic TOPICAL TID bottle 05/17/19 The following prescriptions were given: Iron Polysaccharide Complex [Ferrex 150] 150 mg PO DAILYCM #30 cap Transmission Status: Pending to [facility] #30 Hydrocortisone 2.5% Crm [Hytone] 1 applic TOPICAL BID PRN PRN #1 tube PRN Reason: RASH/TOPICAL IRRITATION Transmission Status: Pending to [facility] #30 Furosemide [Lasix] 40 mg PO BID #60 tab Transmission Status: Pending to [facility] #30 Primary Care Physician: Kayla Bernstein, DIRECTOR OF INSTRUMENTAL MUSIC-C [Primary Care Provider] - Please follow up with your Primary Care Physician in: 1 week. Test Results: Test results from this visit will be discussed in further detail at your follow-up appointment, if applicable. Please Follow Up With: Dr. Carlos Harper (Gastroenterology) When: 2 weeks Please Follow Up With: Hematology/ Oncology Please Follow Up With: Hematology/ Oncology Please Follow Up With: Dr. Oliveira Please Follow Up With: Hematology/ Oncology Please Follow Up With: PCP Dr. Kayla Bernstein When: after D/C from TCU Proposed Discharge Date: 05/22/19
--- NOTE | 2019-05-17 20:01 | DS.PCM_ITS ---
Discharge Date and Diagnosis - Problem List Patient Problems: Active and Suspected Problems Debility (Acute) Upper GI bleed (Acute) AVM (arteriovenous malformation) (Acute) Gastric polyp (Acute) Anemia (Acute) Date of Admission: 05/12/19 Date of Discharge: 05/22/19 - Primary Discharge Diagnosis Active and Suspected Problems Debility (Acute) Upper GI bleed (Acute) AVM (arteriovenous malformation) (Acute) Gastric polyp (Acute) Anemia (Acute) - Secondary Discharge Diagnosis Chronic Problems Atrial fibrillation (Chronic) CARBAJAL (nonalcoholic steatohepatitis) (Chronic) Diabetes mellitus (Chronic) Hypothyroidism (Chronic) GERD (gastroesophageal reflux disease) (Chronic) Paroxysmal atrial fibrillation (Chronic) History of left heart catheterization (Chronic 12/04/18) Normal coronary arteries. The patient has pulmonary hypertension which is mild. Right heart pressures - mildly elevated. Medical management of aortic stenosis. Would not recommend asa or plavix given recent anemia. Medical management of afib. Manual sheath removal. Total of 30 ccs of IV contrast dye for limited LHC; NO LV gram performed due to CRI. Morbid obesity (Chronic) Aortic stenosis (Chronic) Chronic anemia (Chronic) Type 2 diabetes mellitus (Chronic) Hyperlipidemia (Chronic) Liver cirrhosis (Chronic) Chronic kidney disease, stage III (moderate) (Chronic) CKD (chronic kidney disease) (Chronic) HTN (hypertension) (Chronic) Hospital Course and Treatment Imaging Results: 05/12/19 18:59 Diet: Calorie Controlled Is pt able to select menu?: No How many daily calories?: 1800 calorie Labs (Last 48 Hours) 05/15/19 05/16/19 05/16/19 21:33 05:23 06:13 Hgb 7.9 L Hct 25.5 L POC Glucose 146 H 117 H 05/16/19 05/16/19 05/17/19 11:21 21:40 06:25 Hgb Hct POC Glucose 150 H 161 H 117 H 05/17/19 17:10 Hgb Hct POC Glucose 142 H Operations: None Procedures: None Summary of Care Provided: The patient is a 79 year old Male with below past medical history hospitalized for Upper GI bleed secondary to multiple gastric AVM's, gastric ulcers, requiring EGD/cauterization, transfusion, complicated by CARBAJAL cirrhosis/hyperammonemia, admitted to TCU with debility, here for rehabilitation, strengthening, prior to discharge home alone. Resident should not be on blood thinners indefinitely. Discharge home alone, [facility] Patient Problems: Active and Suspected Problems Debility (Acute) Upper GI bleed (Acute) AVM (arteriovenous malformation) (Acute) Gastric polyp (Acute) Anemia (Acute) - Physical Exam Vital Signs Temp Pulse Resp BP Pulse Ox 97.6 F L 58 L 20 H 107/44 L 94 05/17/19 16:00 05/17/19 16:00 05/17/19 16:00 05/17/19 16:00 05/17/19 16:00 Oxygen Delivery Method Room Air Weight: 115.694 kg Body Mass Index (BMI) 38.5 Finger Stick Blood Glucose 132 Intake and Output for Last 24 Hours 05/15/19 05/16/19 05/17/19 23:59 23:59 23:59 Intake Total 600 / 600 1080 / 1080 1100 / 1100 Balance 600 / 600 1080 / 1080 1100 / 1100 POC Glucose 05/17/19 05/17/19 05/16/19 17:10 06:25 21:40 POC Glucose 142 H 117 H 161 H Discharge Diet: No Restrictions Discharge Activity: Return to Normal Activity, May Shower, Use Walker Weight Bearing Status: Weight bearing as tolerated Call your doctor if you observe: Fever of 101 or Higher, Inability to urinate, Inability to have a bowel movement, Shortness of breath, Chest pain, Uncontrolled pain Home Medications: Medications to take at Discharge Levothyroxine [Synthroid] 25 mcg PO DAILY 11/23/16 Pantoprazole Sodium [Protonix] 40 mg PO BID 11/23/16 Rifaximin [Xifaxan] 550 mg PO BID 11/23/16 Simvastatin [Zocor] 20 mg PO DAILY 11/23/16 Insulin Glargine [Lantus SoloStar Pen] 12 units SUBCUT QHS 12/01/18 Multivit-Min/FA/Lycopen/Lutein [Centrum Silver Men Tablet] 1 ea PO DAILY 12/01/18 Nadolol [Corgard (Beta Reggie)] 40 mg PO DAILY 12/01/18 Psyllium Husk [Metamucil] 0.4 gm PO QHS 12/01/18 Loratadine [Claritin] 10 mg PO PRN PRN 01/11/19 Albuterol IH (ProAir) [Proair Hfa] 2 puff INHALATION Q6H PRN PRN 04/28/19 Sucralfate [Carafate] 1 gm PO 4X/DAY 04/28/19 Acetaminophen [Tylenol] 1,000 mg PO Q8H PRN PRN tab 05/17/19 Calcium Carbonate [Tums] 500 mg PO TIDCM PRN tab 05/17/19 Furosemide [Lasix] 40 mg PO BID #60 tab 05/17/19 Hydrocortisone 2.5% Crm [Hytone] 1 applic TOPICAL BID PRN PRN #1 tube 05/17/19 Iron Polysaccharide Complex [Ferrex 150] 150 mg PO DAILYCM #30 cap 05/17/19 Menthol/Lanolin/Calamine/Znox [Calmoseptine Ointment] 1 applic TOPICAL 0600,2200 tube 05/17/19 Mineral Oil/Petrolatum,White [Eucerin] 1 applic TOPICAL 2200 jar 05/17/19 Nystatin Powder [Mycostatin Powder] 1 applic TOPICAL TID bottle 05/17/19 Following Prescrptions Were Given to Patient: Iron Polysaccharide Complex [Ferrex 150] 150 mg PO DAILYCM #30 cap Transmission Status: Pending to [facility] #30 Hydrocortisone 2.5% Crm [Hytone] 1 applic TOPICAL BID PRN PRN #1 tube PRN Reason: RASH/TOPICAL IRRITATION Transmission Status: Pending to [facility] #30 Furosemide [Lasix] 40 mg PO BID #60 tab Transmission Status: Pending to [facility] #30 Primary Care Physician: Kayla Bernstein, ESTIMATING MANAGER-C [Primary Care Provider] - Please follow up with your Primary Care Physician in: 1 week. Please Follow Up With: Dr. Carlos Harper (Gastroenterology) When: 2 weeks Please Follow Up With: Hematology/ Oncology Please Follow Up With: Hematology/ Oncology Please Follow Up With: Dr. Oliveira Please Follow Up With: Hematology/ Oncology Please Follow Up With: PCP Dr. Kayla Bernstein When: after D/C from TCU Disposition: Home with Home Health Minutes spent on discharge:: 35 Patient Condition:: Stable Medical Necessity - Tobacco Use Smoking Status: Former smoker Tobacco Use: Non-smoker Meaningful Use Info Meaningful Use Diagnoses (Choose all that apply): None applicable
--- NOTE | 2019-05-17 20:03 | HHNOTE_ITS ---
Home Health Note - Plan Problems: Patient was seen for Debility (Acute) Upper GI bleed (Acute) AVM (arteriovenous malformation) (Acute) Gastric polyp (Acute) Anemia (Acute) Atrial fibrillation (Chronic) CARBAJAL (nonalcoholic steatohepatitis) (Chronic) Diabetes mellitus (Chronic) Hypothyroidism (Chronic) GERD (gastroesophageal reflux disease) (Chronic) Complete List of Medical Problems GI bleed (Acute) Debility (Acute) Upper GI bleed (Acute) AVM (arteriovenous malformation) (Acute) Gastric polyp (Acute) Anemia (Acute) Atrial fibrillation (Chronic) CARBAJAL (nonalcoholic steatohepatitis) (Chronic) Diabetes mellitus (Chronic) Hypothyroidism (Chronic) GERD (gastroesophageal reflux disease) (Chronic) Paroxysmal atrial fibrillation (Chronic) History of left heart catheterization (Chronic 12/04/18) Acute respiratory failure with hypoxia (Acute) CHF exacerbation (Acute) Morbid obesity (Chronic) Pleural effusion (Acute) Aortic stenosis (Chronic) Acute chest pain (Acute) Hypoxemia (Acute) Dyspnea (Acute) Chronic anemia (Chronic) Type 2 diabetes mellitus (Chronic) Hyperlipidemia (Chronic) Liver cirrhosis (Chronic) Chronic kidney disease, stage III (moderate) (Chronic) Hyperglycemia (Acute) CKD (chronic kidney disease) (Chronic) HTN (hypertension) (Chronic) - Requirements and Reasons Disciplines Needed/Ordered: Physical Therapy Reason for Disciplines: Disease Specific Monitoring/education, Gait Training, St air Training, Fall Prevention, Home Safety/Equipment Instruction, Balance and/or Posture Training, Transfer Training Related To: Change in Medical Treatment Plan, Limited/Poor Endurance, Shortness of Breath with Activity, Physical Impairments, Unsteady Gait/Balance, Fall Risk Patient is unable to leave the home: Without Aid of Supportive Devices (c rutches, cane, wheelchair, walker), Without the assistance of another person - Additional Disciplines Additional Disciplines Needed/Ordered: Occupational Therapy
[2019-05-17 21:40] LABS: Bedside Glucose 163 mg/dL (70-110)
[2019-05-17] MEDS: Psyllium 1 PACKET PO (21:49)
[2019-05-17] MEDS: Atorvastatin Calcium 10 MG Tablet PO (21:49)
[2019-05-18] MEDS: Nadolol 40 MG Tablet PO (04:39)
[2019-05-18] MEDS: Levothyroxine 25 MCG TABLET PO (04:39)
[2019-05-18] MEDS: Pantoprazole Sodium 40 MG Tablet PO ×2 (04:39→16:32)
[2019-05-18] MEDS: rifAXIMin 550 MG Tablet PO ×2 (04:39→16:32)
[2019-05-18] MEDS: Furosemide 40 MG Tablet PO ×2 (04:40→16:32)
[2019-05-18] MEDS: Sucralfate 1 GM Tablet PO ×4 (04:40→21:32)
[2019-05-18] MEDS: Nystatin Powder 15gm Bottle 1 APPLIC TOPICAL ×3 (04:40→21:34)
[2019-05-18] MEDS: Menthol/Lanolin/Calamine/Znox 113 GM Tube 1 APPLIC TOPICAL ×2 (04:40→21:34)
[2019-05-18] MEDS: Acetaminophen 500 MG Tablet 1000 MG PO (04:41)
[2019-05-18 05:13] VITALS: O2SAT 98
[2019-05-18 06:30] LABS: Bedside Glucose 173 mg/dL (70-110)
[2019-05-18] MEDS: Iron Polysaccharide Complex 150 MG CAPSULE PO (08:26)
[2019-05-18] MEDS: Multivitamins,Ther W-Minerals Tablet 1 TABLET PO (08:26)
--- NOTE | 2019-05-18 14:54 | CASEMGMT ---
Social Work Spoke with Nikole cyanide case hardener about increasing aide hours per week. Imtiaz stated the dtr needs to complete paperwork with the agency to begin getting reimbursed for home health services she will be providing to the pt. Imtiaz requested an increase to minimum 21 hrs/wk and 3 days/wk of adult day services upon DC. Sharonda. left message with the dtr to come in 05/20 at 2:30 pm to complete the paperwork with the pt to begin those services. Will discuss this information at care plan tomorrow. PRAKASH MonsivaisW
[2019-05-18 15:26] VITALS: BP 105/45; PULSE 57; RESP 20; TEMP 36.7; O2SAT 95
[2019-05-18] MEDS: Psyllium 1 PACKET PO (21:32)
[2019-05-18] MEDS: Atorvastatin Calcium 10 MG Tablet PO (21:32)
[2019-05-18 21:36] LABS: Bedside Glucose 168 mg/dL (70-110)
[2019-05-19] MEDS: Sucralfate 1 GM Tablet PO ×4 (05:26→20:25)
[2019-05-19] MEDS: Furosemide 40 MG Tablet PO ×2 (05:26→17:25)
[2019-05-19] MEDS: Levothyroxine 25 MCG TABLET PO (05:26)
[2019-05-19] MEDS: rifAXIMin 550 MG Tablet PO ×2 (05:26→17:25)
[2019-05-19] MEDS: Pantoprazole Sodium 40 MG Tablet PO ×2 (05:26→17:25)
[2019-05-19] MEDS: Nadolol 40 MG Tablet PO (05:26)
[2019-05-19] MEDS: Acetaminophen 500 MG Tablet 1000 MG PO (05:28)
[2019-05-19] MEDS: Menthol/Lanolin/Calamine/Znox 113 GM Tube 1 APPLIC TOPICAL ×2 (05:30→20:23)
[2019-05-19] MEDS: Nystatin Powder 15gm Bottle 1 APPLIC TOPICAL ×3 (05:30→21:02)
[2019-05-19 06:26] LABS: Bedside Glucose 148 mg/dL (70-110)
[2019-05-19] MEDS: Multivitamins,Ther W-Minerals Tablet 1 TABLET PO (08:05)
[2019-05-19] MEDS: Iron Polysaccharide Complex 150 MG CAPSULE PO (08:05)
--- NOTE | 2019-05-19 10:35 | CASEMGMT ---
Addendum entered by Angy Ley 05/20/19 08:55: [facility] C is now A of [facility] -- referral made. Original Note: Social Work IDT met with patient, two daughters and son for care plan meeting. Discussed patient's progress in therapy. Pt is walking 475 ft with FWW SBA, 5 steps. Pt is min to mod assist for LE ADLs. SBA for toileting and transfers. retail manager notified SW pt has been approved for 21 hours/ wk and 3 days/wk for [place]. Pt is agreeable to try [place]. Dtr, Addie, will meet with director case tomorrow to complete paperwork to continue being an aide for pt. Dtr/pt requesting [facility] - PT/OT/SN at time of discharge. No DME needs. Plan: DC home 05/22 with [facility] PT/OT/SN, [place] ADS, 21hrs nonskilled aides. Angy Ley, PARKASH ARTIST'S MANAGER
--- NOTE | 2019-05-19 14:11 | CASEMGMT ---
Social Work After care plan meeting
--- NOTE | 2019-05-19 14:12 | CASEMGMT ---
Social Work After care plan meeting, daughter Lyla, called SW to express concerns with sister Addie, caring for patient. Listened to concerns and stated the pt would have to confirm these issues and make his decision for whom will be caring for him at home. Spoke with pt to inquire about how dtr, Addie, was caring for him at home. Pt stated I do not want to get anyone in trouble. Explained to pt his care and safety is most important and if things are not going well, SW can assist. Inquired about concerns, pt confirmed. Pt reported the following: dtr, Addie, does not stay and care for pt the entire time she is clocked in - she visits her mother upstairs most of the time; however, he does state she helps with washing up, laundry and dishes. She does not sponge bathe the pt - she uses baby wipes. There is not a bathroom facility in the basement where pt resides, and he cannot go up the 15 steps to the main living area to use that shower. - In the care plan meeting there was discussion about children installing a bathroom, but it has not happened yet. - Pt stated he uses a BSC and it is only changed when dtr was visiting, which may not have been every day, let alone once a day. Pt used to go to the grocery store with dtr, but now she does not let him go to the store because she says he is too slow. Upon her return from the store, she does not give the change or receipt to pt. Pt states the son whom lives upstairs occasionally comes to visit or help, but not daily. He states his dtr, Lyla, visits maybe once a month, and does not call any other time. Pt reports he does have a door to go outside on a cement slab, but there are no windows in the basement. SW inquired about moving upstairs - he responds hell no, I'm not living with my ex and her Pt states he does not want his dtr to care for him anymore, he would prefer to have an aide who will help all of the time. He said he trusts his son to handle his finances and he will take him to the grocery store. Explained to pt to not give his money to anyone, to go to the store himself and make a separate transaction so he receives the change back and the receipt. Explained [facility] will be a great way to socialize outside of the house, to get meals, and they can provide showers the 3 days he goes. Pt is still agreeable to try it out. Explained to pt SW will be contacting an agency to follow up with him while at home to make sure he is safe and things are going well. Pt appreciative and understanding. Relayed all of the above to Nikole Kitchen stated SW will be making an APS referral upon DC. HHC is ordered. Imtiaz stated since pt does not want his dtr assisting, they will not move forward completing the paperwork, and she will begin searching to secure other aides; however, that may be difficult. EMMIE spoke with son to explain dtr will no longer be assisting, and if he is able to step in until the agency can fill those hours. Son stated he works 7 am to 4pm 6 days/wk, but he calls during the day, and will be there in the evening. Reiterated he will need to check on pt multiple times, assist with the BSC, bathing, meals, and taking him to the grocery store - son understood and agreeable to these tasks. Provided information to Imtiaz whom is still in the process of securing aides. PRAKASH Monsivais
[2019-05-19 16:00] VITALS: BP 129/59; PULSE 63; RESP 20; TEMP 36.8; O2SAT 97
[2019-05-19] MEDS: Atorvastatin Calcium 10 MG Tablet PO (20:25)
[2019-05-19] MEDS: Psyllium 1 PACKET PO (20:26)
[2019-05-19 20:51] LABS: Bedside Glucose 182 mg/dL (70-110)
[2019-05-20] MEDS: rifAXIMin 550 MG Tablet PO ×2 (05:25→17:22)
[2019-05-20] MEDS: Pantoprazole Sodium 40 MG Tablet PO ×2 (05:25→17:22)
[2019-05-20] MEDS: Menthol/Lanolin/Calamine/Znox 113 GM Tube 1 APPLIC TOPICAL ×2 (05:25→21:10)
[2019-05-20] MEDS: Nadolol 40 MG Tablet PO (05:25)
[2019-05-20] MEDS: Sucralfate 1 GM Tablet PO ×4 (05:26→21:09)
[2019-05-20] MEDS: Levothyroxine 25 MCG TABLET PO (05:26)
[2019-05-20] MEDS: Furosemide 40 MG Tablet PO ×2 (05:26→17:22)
[2019-05-20] MEDS: Nystatin Powder 15gm Bottle 1 APPLIC TOPICAL ×3 (05:26→21:28)
[2019-05-20 06:08] LABS: Anion Gap 8 (5-15); BUN 41 mg/dL (7-18); BUN/Creat Ratio 21.9 RATIO (10-20); Calcium,Total 8.2 mg/dL (8.5-10.1); Chloride 101 mmol/L (98-107); Creatinine, Serum 1.87 mg/dL (0.70-1.30); EST Glomerular Filtration Rate 37 mL/min (>60); Est Glom Filt Rate - Afr Amer 45 mL/min (>60); Estimated Creatinine Clearance 31.51 ml/min; Glucose 141 mg/dL (74-106); Potassium 3.8 mmol/L (3.5-5.1); Sodium Level 140 mmol/L (136-145)
[2019-05-20 06:16] LABS: Bedside Glucose 161 mg/dL (70-110)
[2019-05-20 06:38] LABS: Absolute Lymphocyte Count 0.71 X10^3/uL (0.83-4.51); Basophil# 0.02 X10^3/uL; Basophil% 0.6 % (0-1); Eosinophil# 0.24 X10^3/uL; Hematocrit 27.7 % (40-54); Hemoglobin 8.6 g/dL (13.0-16.5); Lymphocyte # 0.71 X10^3/ul (4.0); Lymphocyte % 20.7 % (19-41); Monocyte# 0.49 X10^3/uL; Monocyte% 14.3 % (0-10); NRBC Flagged by Analyzer 0 % (0-5); Neutrophil # 1.95 X10^3/uL (2.7-7.7); Neutrophil % 56.8 % (47-70); POSITIVE COUNT YES; POSITIVE MORPHOLOGY YES; Platelet Count 82 K/mm3 (150-450); RBC Distribution Width CV 19.6 % (11.6-14.6); RBC Distribution Width SD 70.5 fl (35.1-43.9); Red Blood Count 2.77 M/mm3 (4.6-6.2); White Blood Count 3.4 K/mm3 (4.4-11.0)
[2019-05-20 07:19] LABS: Differential Indicated SCAN CRITERIA MET
[2019-05-20 07:21] LABS: Platelet Estimate SLT DEC (ADEQ); Platelet Morphology LARGE
[2019-05-20] MEDS: Multivitamins,Ther W-Minerals Tablet 1 TABLET PO (08:15)
[2019-05-20] MEDS: Iron Polysaccharide Complex 150 MG CAPSULE PO (08:15)
[2019-05-20] MEDS: Tuberculin,Purif.prot.deriv. 50 TU/ML Vial 5 ML ID (10:42)
--- NOTE | 2019-05-20 14:15 | MDS.RN ---
Information for the mds was obtained from review of the clinical record, interview of resident, staff, and direct observation of resident's care.
[2019-05-20 15:17] VITALS: BP 114/47; PULSE 61; RESP 18; TEMP 36.8; O2SAT 96
--- NOTE | 2019-05-20 16:31 | CASEMGMT ---
Addendum entered by Angy Ley 05/21/19 16:35: Spoke with EMMIE Clark Librarian Specialist, at [facility] to provide pt information . Original Note: Social Work Left message with APS to make referral. Awaiting return phone call. Pt DC 05/22. PRAKASH MonsivaisW
[2019-05-20] MEDS: Psyllium 1 PACKET PO (21:09)
[2019-05-20] MEDS: Atorvastatin Calcium 10 MG Tablet PO (21:09)
[2019-05-20 21:20] LABS: Bedside Glucose 204 mg/dL (70-110)
[2019-05-21] MEDS: Pantoprazole Sodium 40 MG Tablet PO ×2 (05:00→17:15)
[2019-05-21] MEDS: Sucralfate 1 GM Tablet PO ×4 (05:00→21:57)
[2019-05-21] MEDS: Nadolol 40 MG Tablet PO (05:00)
[2019-05-21] MEDS: rifAXIMin 550 MG Tablet PO ×2 (05:00→17:15)
[2019-05-21] MEDS: Levothyroxine 25 MCG TABLET PO (05:00)
[2019-05-21] MEDS: Furosemide 40 MG Tablet PO ×2 (05:00→17:15)
[2019-05-21] MEDS: Menthol/Lanolin/Calamine/Znox 113 GM Tube 1 APPLIC TOPICAL ×2 (05:06→21:57)
[2019-05-21] MEDS: Nystatin Powder 15gm Bottle 1 APPLIC TOPICAL ×3 (05:16→21:57)
[2019-05-21 06:31] LABS: Bedside Glucose 132 mg/dL (70-110)
[2019-05-21] MEDS: Acetaminophen 500 MG Tablet 1000 MG PO (08:32)
[2019-05-21] MEDS: Multivitamins,Ther W-Minerals Tablet 1 TABLET PO (08:32)
[2019-05-21] MEDS: Iron Polysaccharide Complex 150 MG CAPSULE PO (08:32)
[2019-05-21 12:53] VITALS: PULSE 59; RESP 18; O2SAT 96
[2019-05-21 16:00] VITALS: BP 120/60; PULSE 58; RESP 18; TEMP 36.2; O2SAT 98
[2019-05-21 21:21] LABS: Bedside Glucose 217 mg/dL (70-110)
[2019-05-21] MEDS: Atorvastatin Calcium 10 MG Tablet PO (21:57)
[2019-05-21] MEDS: Psyllium 1 PACKET PO (21:57)
[2019-05-22] MEDS: Pantoprazole Sodium 40 MG Tablet PO (04:56)
[2019-05-22] MEDS: Furosemide 40 MG Tablet PO (04:56)
[2019-05-22] MEDS: rifAXIMin 550 MG Tablet PO (04:56)
[2019-05-22] MEDS: Nystatin Powder 15gm Bottle 1 APPLIC TOPICAL (04:56)
[2019-05-22] MEDS: Nadolol 40 MG Tablet PO (04:56)
[2019-05-22] MEDS: Sucralfate 1 GM Tablet PO ×2 (04:56→10:34)
[2019-05-22] MEDS: Levothyroxine 25 MCG TABLET PO (04:56)
[2019-05-22] MEDS: Menthol/Lanolin/Calamine/Znox 113 GM Tube 1 APPLIC TOPICAL (04:57)
[2019-05-22 06:51] LABS: Bedside Glucose 159 mg/dL (70-110)
[2019-05-22] MEDS: Multivitamins,Ther W-Minerals Tablet 1 TABLET PO (08:50)
[2019-05-22] MEDS: Iron Polysaccharide Complex 150 MG CAPSULE PO (08:50)
[2019-05-22] MEDS: Acetaminophen 500 MG Tablet 1000 MG PO (08:52)
[2019-05-22 09:14] VITALS: BP 111/49; PULSE 60; RESP 18; TEMP 36.6; O2SAT 99
--- NOTE | 2019-05-24 22:12 | CASEMGMT ---
Insurance Updated insurance on patient discharge on 05/22/19. Auth#[id number] [place]quel [place], [place]
== END 2019-05-22 11:00 | disposition home health service (06) | DRG 948 ==
PROVIDERS: Admitting Provider Family Medicine Geriatric Medicine; Family Provider Nurse Practitioner Family; PCP Nurse Practitioner Family; Referring Provider Family Medicine Geriatric Medicine; Visit Provider Family Medicine Geriatric Medicine
DX: R53.81 Other malaise (principal); I13.0 Hypertensive heart and chronic kidney disease with heart failure and stage 1 through stage 4 chronic kidney disease, or unspecified chronic kidney disease; K76.6 Portal hypertension; I50.9 Heart failure, unspecified; N18.3 Chronic kidney disease, stage 3 (moderate); E03.9 Hypothyroidism, unspecified; E11.22 Type 2 diabetes mellitus with diabetic chronic kidney disease; K21.9 Gastro-esophageal reflux disease without esophagitis; K75.81 Nonalcoholic steatohepatitis (NASH); E78.5 Hyperlipidemia, unspecified; Q27.33 Arteriovenous malformation of digestive system vessel; I48.0 Paroxysmal atrial fibrillation; I27.20 Pulmonary hypertension, unspecified; E66.01 Morbid (severe) obesity due to excess calories; Z68.37 Body mass index [BMI] 37.0-37.9, adult; K74.60 Unspecified cirrhosis of liver; Z87.891 Personal history of nicotine dependence; Z87.11 Personal history of peptic ulcer disease; D50.9 Iron deficiency anemia, unspecified
CPT/HCPCS: 36415; 80048; 82140; 82962; 85014; 85018; 85025; 92507; 92523; 97110; 97116; 97162; 97165; 97530; 97535; 97802

== ENCOUNTER 2019-07-27 14:31 | Inpatient (IN) | payer MEDICARE, SELFPAY ==
[2019-07-09 11:24] VITALS: BMI 41.9
[2019-07-27] VITALS (11 sets, daily range): BP systolic 107–129; BP diastolic 39–92; PULSE 60–65; RESP 18–26; TEMP 37.1; O2SAT 93–100; BMI 38.0; BMI 42.5; BMI 40.9
--- NOTE | 2019-07-27 15:03 | EKG12_ITS ---
Test Reason : SOB Blood Pressure : / mmHG Vent. Rate : 067 BPM Atrial Rate : 067 BPM P-R Int : 180 ms QRS Dur : 094 ms QT Int : 408 ms P-R-T Axes : 064 059 032 degrees QTc Int : 431 ms Sinus rhythm with Premature atrial complexes Otherwise normal ECG Confirmed by OTILIA BARDALES ([id number]), subeditor ANGIE ORTEGA ([id number]) on 08/01/2019 9:21:41 AM Referred By: Luz Ness Confirmed By:OTILIA BARDALES
--- NOTE | 2019-07-27 15:14 | ED.DCSUM_ITS ---
History of Present Illness Chief Complaint: Shortness of Breath Informant: Patient Narrative: Patient presenting for evaluation secondary to shortness of breath cough and generalized illness. Patient has a underlying history of rather poor health, diabetes and cirrhosis. Patient reports that over the course the last month he has been feeling generally ill. Is been associated with a cough that is productive of white sputum and shortness of breath. He reports subjective fevers and chills associated with this. His primary care doctor informed him to take [id number]-mcp-wkujvky remedies for this, he states that despite doing this he has not been having any sort of improvement. He does endorse that he is feeling short of breath now with exertion. He was noted to have a pulse ox of 83% on room air in triage, and is not on chronic oxygen. Patient also endorses that he has had a mild amount of recent nausea and vomiting with anorexia associated with this. Review of systems otherwise negative. Past Medical History - Allergies and Home Meds Allergies/Adverse Reactions: Allergies No Known Allergies Allergy (Verified 07/27/19 14:36) Primary Care Physician: Kayla Bernstein NP-C [Primary Care Provider] - Past Medical History: - - Hypertension, hyperlipidemia, diabetes, cirrhosis, aortic stenosis, congestive heart failure Surgical History: herniorrhaphy, - - prostate surgery, circumcision Smoking Status: Former smoker - Family History Maternal Family History: Reports: Diabetes Paternal Family History: Reports: Cancer - Prostate Review of Systems All systems negative except as indicated General: Reports: Chills, Malaise Eyes: Denies: Visual changes - bilaterally, Diplopia ENT: Denies: Rhinorrhea, Sore throat Cardiovascular: Denies: Chest pain Respiratory: Reports: Dyspnea, Cough, Sputum, Dyspnea on exertion Gastrointestinal: Reports: Nausea, Vomiting Genitourinary: Denies: Dysuria, Hematuria, Frequency Musculoskeletal: Denies: Back pain, Extremity Pain Skin: Denies: Rash, Wounds Neurological: Denies: Headache, Weakness, Numbness Psych: Denies: Depression Endocrine: Denies: Polyuria Hematologic: Denies: Easy bruising, Easy bleeding Allergy: Denies: Swelling of the mouth Physical Exam Vital Signs/Narrative: Vital Signs Temp Pulse Resp BP Pulse Ox 07/27/19 15:05 99 07/27/19 14:32 98.8 F 64 20 H 127/92 H 99 Inital Vital Signs reviewed: Yes General: Obese, - - Somewhat ill appearing Head: Normocephalic, Atraumatic Eyes: Perrl, EOMI ENT: Moist mucous membranes, - - Dried brown emesis in the mouth and tongue Neck: Supple, Nontender Cardiovascular: Regular rate, Regular rhythm, Murmur - 4/6 systolic, - - 2+ radial pulses Respiratory: No distress, - - Normal respiratory effort with poor air movement Abdomen: Soft, Nontender Extremities: Nontender Skin: Normal color, No rash Neurological: Alert, Oriented x3, Cranial nerves II-XII grossly intact, Normal Strength, Normal Sensation Psychological: Normal affect Diagnostic/Tx/Re-eval Chest X-Ray - ED: 1 View, Read by ED Physician, Read by Radiologist, Right Infiltrate, Right Effusion - EKG Initial EKG Interpretation: - - Sinus rhythm at 67 with occasional PACs, isoelectric ST segm ents normal T waves no evidence of acute ischemia or arrhythmia. - Medical Decision Making Patient presented for evaluation secondary to shortness of breath and generalized illness. He was found to be hypoxic in the waiting room was placed on supplemental oxygen. He does not use supplemental oxygen. Patient's work-up shows him to have chronic anemia chronic kidney disease. He does have an elevation of his BNP. He has asymmetric infiltrates on the right being described as a right-sided infiltrate with localized effusion. Given the patient's prodrome of illness, his hypoxia I do believe that this likely is pneumonia. He will be given Rocephin and azithromycin and supplemental oxygen. Patient will be admitted under the hospitalist. Disposition: Admit to Med Surg ED Disposition - Plan for ED Patient: Disposition: Acute Care Hospital [facility] Diagnosis: Community acquired pneumonia, Hypoxia
[2019-07-27] MEDS: Albuterol 2.5 MG/3 ML VIAL.NEB. INHALATION ×2 (15:27→15:37)
[2019-07-27 15:38] LABS: Absolute Lymphocyte Count 0.84 X10^3/uL (0.83-4.51); Absolute Neutrophil Count 4.1 X10^3/uL (2.0-7.7); Basophil# 0.03 X10^3/uL; Basophil% 0.5 % (0-1); Eosinophil# 0.24 X10^3/uL; Eosinophils% 3.9 % (0-5); Hematocrit 28.6 % (40-54); Hemoglobin 8.7 g/dL (13.0-16.5); Lymphocyte # 0.84 X10^3/ul (4.0); Lymphocyte % 13.5 % (19-41); Mean Corp Hgb Conc 30.4 g/dL (32-36); Mean Corpuscular Hgb 35.8 pg (27.0-32.0); Mean Corpuscular Volume 117.7 fL (80-94); Mean Platelet Vol. 13.1 fl (6.2-12.0); Monocyte# 0.91 X10^3/uL; Monocyte% 14.6 % (0-10); NRBC Flagged by Analyzer 0.5 % (0-5); Neutrophil % 65.7 % (47-70); POSITIVE COUNT YES; POSITIVE MORPHOLOGY YES; Platelet Count 78 K/mm3 (150-450); RBC Distribution Width CV 20.6 % (11.6-14.6); RBC Distribution Width SD 89.3 fl (35.1-43.9); Red Blood Count 2.43 M/mm3 (4.6-6.2); White Blood Count 6.2 K/mm3 (4.4-11.0)
[2019-07-27 15:40] LABS: Differential Indicated SCAN CRITERIA MET
[2019-07-27 15:55] LABS: AST(SGOT) 26 U/L (15-37); Alanine Aminotransfer ALT/SGPT 23 U/L (16-61); Albumin, Serum 3.5 g/dL (3.2-5.0); Alkaline Phosphatase 77 U/L (45-117); Anion Gap 4 (5-15); BUN 61 mg/dL (7-18); BUN/Creat Ratio 35.1 RATIO (10-20); Bilirubin, Direct 0.43 mg/dL (0.00-0.30); Calcium,Total 8.6 mg/dL (8.5-10.1); Chloride 104 mmol/L (98-107); Creatinine, Serum 1.74 mg/dL (0.70-1.30); EST Glomerular Filtration Rate 40 mL/min (>60); Est Glom Filt Rate - Afr Amer 49 mL/min (>60); Estimated Creatinine Clearance 32.76 ml/min; Glucose 104 mg/dL (74-106); Potassium 4.3 mmol/L (3.5-5.1); Protein, Total 8.5 g/dL (6.4-8.2); Sodium Level 141 mmol/L (136-145)
[2019-07-27 16:05] LABS: Lactic Acid 1.4 mmol/L (0.4-2.0)
[2019-07-27 16:06] LABS: Anisocytosis 1+; Differential Comment SCANNED; Platelet Estimate MOD DEC (ADEQ)
[2019-07-27 16:11] LABS: BNP,B-Type NATRIURETIC PEPTIDE 719.5 pg/mL (0-100)
--- NOTE | 2019-07-27 16:23 | RAD_ITS ---
STUDY: X-RAY - ACUTE ABDOMINAL SERIES REASON FOR EXAM: Male, 79 years old. Vomiting TECHNIQUE: Single view of the chest. Supine, and erect view(s) of the abdomen were obtained. COMPARISON: 04/29/2019 FINDINGS: EKG leads overlie the chest Chronic interstitial changes in both lung melendez with right pleural effusion likely associated atelectasis or infiltrate. Follow-up recommended to ensure resolution. Normal size heart. Normal mediastinum and jeannine. Normal visualized pulmonary arteries. There is atherosclerotic calcification of the aortic arch with tortuosity. There is a non-specific bowel gas pattern. The soft tissue structures of the abdomen and pelvis are unremarkable. There are diffuse degenerative changes of the visualized thoracic and lumbar spine. RAD/Acute Abdomen Inc Chest IMPRESSION: Chronic interstitial changes in both lung melendez with right pleural effusion and associated atelectasis or infiltrate. Follow-up recommended to ensure resolution Degenerative bony changes No acute abdominal or pelvic process Electronically Signed: Enrico Singh MD at 17:11 EST , Service support ,
--- NOTE | 2019-07-27 17:29 | NURSING ---
127 ASHELFAH PNEUMONIA, HYPOXIA
--- NOTE | 2019-07-27 17:45 | HP.PCM_ITS ---
Problem List (1) Community acquired pneumonia Status: Acute (2) CARBAJAL (nonalcoholic steatohepatitis) Status: Chronic (3) Hypothyroidism Status: Chronic (4) GERD (gastroesophageal reflux disease) Status: Chronic (5) Paroxysmal atrial fibrillation Status: Chronic (6) Chronic anemia Status: Chronic (7) Type 2 diabetes mellitus Status: Chronic Qualifiers: Diabetes mellitus intermodal customer service insulin use: with intermodal customer service use Diabetes mellitus complication status: with neurologic complications Diabetes mellitus complication detail: with polyneuropathy Qualified Code(s): E11.42 - Type 2 diabetes mellitus with diabetic polyneuropathy; Z79.4 - intermediate (current) use of insulin (8) Hyperlipidemia Status: Chronic Qualifiers: Hyperlipidemia type: unspecified Qualified Code(s): E78.5 - Hyperlipidemia, unspecified History of Present Illness Date of Admission: 07/27/19 Chief Complaint: Shortness of breath, cough, lethargy. The patient is a 79 year old M patient with multiple medical comorbidities as mentioned above presented to the emergency room because of shortness of breath, cough and lethargy. The patient is a poor informant and he was lethargic and was not able to provide detailed history. He was alert and oriented x3 and he was able to answer some questions directly by yes or no. Patient's daughter was at the bedside and she provided most of the information. According to the patient's daughter, patient has been declining over the last month, his illness started with upper respiratory symptoms including sore throat, sinus congestion as well as mild cough. They contacted his PCP who prescribed some symptomatic treatment which obviously did not help. According to the daughter, patient continued to decline, has been having difficulty ambulating and very weak. Over the last several days, he has been having cough with minimal sputum and he continued to decline every day he has very poor oral intake and he was not eating or drinking for several days. The patient himself complains of cough with minimal sputum. He denied chest pain or shortness of breath. He mentioned that he has been having difficulties swallowing certain types of food recently. He complained of vague abdominal pain. He had a history of liver cirrhosis due to CARBAJAL and he has been on lactulose, Aldactone and rifaximin and he has been having bowel movements over the day. At this time, he is alert and oriented x3 although he was lethargic. He had a history of type 2 diabetes mellitus and he has been on glargine insulin as well as insulin lispro, his A1c was 5.1% on April,. He had a history of stage III chronic kidney disease and his creatinine has been around 1.6- 2.2 mg/dL, admission creatinine is 1.74 which is stable at his baseline. In the emergency department, patient was afebrile, blood pressure and heart rate has been stable, pulse ox was 99% on 2 L. Routine blood work was remarkable for chronic anemia, chronic thrombocytopenia, BUN of 61, creatinine of 1.74. Lactic acid was normal. Left ear was unremarkable. EKG revealed normal sinus rhythm without evidence of acute ischemic changes or cardiac arrhythmias. Troponin was negative. BNP was 719 but it has been chronically elevated. Chest x-ray which was included in the x-ray abdomen revealed right lower lobe infiltrate/consolidation. Patient is being admitted for community-acquired versus aspiration pneumonia with hypoxia, physical debility and functional decline. Past Medical History Past Medical History (Chronic Problems): Chronic Problems (Last Updated 07/27/19 @ 17:44 by Luz Ness MD) AVM (arteriovenous malformation) (Chronic) Gastric polyp (Chronic) CARBAJAL (nonalcoholic steatohepatitis) (Chronic) Hypothyroidism (Chronic) GERD (gastroesophageal reflux disease) (Chronic) Paroxysmal atrial fibrillation (Chronic) Morbid obesity (Chronic) Aortic stenosis (Chronic) Chronic anemia (Chronic) Type 2 diabetes mellitus (Chronic) Hyperlipidemia (Chronic) Liver cirrhosis (Chronic) Chronic kidney disease, stage III (moderate) (Chronic) HTN (hypertension) (Chronic) Medical History: Medical History (Last Updated 07/27/19 @ 17:44 by Luz Ness MD) AVM (arteriovenous malformation) (Chronic) Q27.30 Gastric polyp (Chronic) K31.7 CARBAJAL (nonalcoholic steatohepatitis) (Chronic) K75.81 Hypothyroidism (Chronic) E03.9 GERD (gastroesophageal reflux disease) (Chronic) K21.9 Paroxysmal atrial fibrillation (Chronic) I48.0 Morbid obesity (Chronic) E66.01 Aortic stenosis (Chronic) I35.0 Chronic anemia (Chronic) D64.9 Type 2 diabetes mellitus (Chronic) E11.9 Hyperlipidemia (Chronic) E78.5 Liver cirrhosis (Chronic) K74.60 Chronic kidney disease, stage III (moderate) (Chronic) N18.3 HTN (hypertension) (Chronic) I10 GI bleed (Inactive) K92.2 Pleural effusion (Inactive) J90 Allergies No Known Allergies Allergy (Verified 07/27/19 14:36) Home Medications: Ambulatory Orders Medication Instructions Recorded Levothyroxine [Synthroid] 25 mcg PO DAILY 11/23/16 Pantoprazole Sodium [Protonix] 40 mg PO BID 11/23/16 Rifaximin [Xifaxan] 550 mg PO BID 11/23/16 Simvastatin [Zocor] 20 mg PO DAILY 11/23/16 Multivit-Min/FA/Lycopen/Lutein 1 ea PO DAILY 12/01/18 [Centrum Silver Men Tablet] Nadolol [Corgard (Beta Reggie)] 40 mg PO DAILY 12/01/18 Sucralfate [Carafate] 1 gm PO 4X/DAY 04/28/19 Calcium Carbonate [Tums] 500 mg PO TIDCM PRN tab 05/17/19 Furosemide [Lasix] 40 mg PO BID #60 tab 05/17/19 Nystatin Powder [Mycostatin Powder] 1 applic TOPICAL TID bottle 05/17/19 insulin glargine (U-100) 100 12 unit SC DAILY@0800 ml 07/09/19 unit/mL (3 mL) subcutaneous pen insulin lispro (U-100) 100 unit/mL See Rx Instructions SC .COMPLEX 07/09/19 subcutaneous cartridge lactulose 10 gram/15 mL oral 30 ml PO BID 07/09/19 solution spironolactone 100 mg tablet 200 mg PO DAILY tab 07/09/19 Acetaminophen [Tylenol] 500 mg PO Q8H PRN PRN 07/27/19 Ferrous Sulfate 325 mg PO DAILY 07/27/19 Insulin Glargine,Hum.rec.anlog 15 unit SQ DAILY@199907/27/19 [Lantus Solostar] Methylcellulose [Fiber] 500 mg PO DAILY 07/27/19 Surgical History: Surgical History (Last Updated 07/27/19 @ 17:44 by Luz Ness MD) History of left heart catheterization (Inactive) Onset Date: 12/04/18 Z98.890 Normal coronary arteries. The patient has pulmonary hypertension which is mild. Right heart pressures - mildly elevated. Medical management of aortic stenosis. Would not recommend asa or plavix given recent anemia. Medical management of afib. Manual sheath removal. Total of 30 ccs of IV contrast dye for limited LHC; NO LV gram performed due to CRI. Surgical History: herniorrhaphy, - - prostate surgery, circumcision Psychiatric History: No pertinent psych hx Lives: With Family Smoking Status: Former smoker Alcohol: None Drugs: None - *Family History Maternal History Items: Diabetes Paternal History Items: Cancer - Prostate Review of Systems Constitutional: Reports: Anorexia, Weakness, Fatigue. Denies: Chills, Fever Eyes: Denies: Blurred vision, Double vision, Drainage, Redness HEENT: Reports: Nasal Congestion. Denies: Difficulty Hearing, Ear Pain, Eye Pain, Sore Throat Cardiovascular: Denies: Chest Pain, Chest Pressure, Edema, Heaviness, Palpitations, Syncope Respiratory: Reports: Cough, Sputum production. Denies: Hemoptysis, Pleuritic Pain, Shortness of Breath, Wheezing Gastrointestinal: Denies: Abdominal Pain, Constipation, Diarrhea, Nausea, Vomiting Genitourinary: Denies: Dysuria, Frequency, Hematuria Musculoskeletal: Denies: Arm Pain, Back Pain, Foot Pain Skin: Denies: Dryness, Rash Neurological: Denies: Balance problems, Double vision, Slurred speech, Confusion, Focal weakness, Headaches, Incoordination Psychiatric: Denies: Anxiety, Depression Endocrine: Denies: Change in Body Habitus, Polydipsia, Polyuria VTE Information - Inpt Only VTE Present on Admission: No VTE Mechan Device Prophylaxis: SCD's VTE Pharm Prophylaxis ordered?: No Patient Problems: Active and Suspected Problems (Last Updated 07/27/19 @ 17:44 by Luz Ness MD) Community acquired pneumonia (Acute) Hypoxia (Acute) - Physical Exam Vitals/I&O's: Vital Signs Temp Pulse Resp BP Pulse Ox 98.8 F 63 24 H 107/39 L 98 07/27/19 14:32 07/27/19 15:32 07/27/19 15:32 07/27/19 15:32 07/27/19 15:32 Oxygen Flow Rate (L/min) 2 Oxygen Delivery Method Nasal Cannula Weight: 279 lb 12.266 oz Body Mass Index (BMI) 42.5 Finger Stick Blood Glucose 132 General: Alert, Oriented x3, Cooperative, - - Lethargic but oriented x3 and was able to answer all questions appropriately. HEENT: Atraumatic, PERRLA, EOMI, Normocephalic Oral: No Gingival or Mucosal Lesions/ Ulcerations, Dry Mucosa Neck: Supple, No JVD, Negative Carotid Bruits, Trachea Midline, Thyroid Normal Size and Texture Lungs: No wheeze, No rales, Diminished, Rhonchi, - - Decreased breath sounds at the bases, more on the right base, scattered rhonchi. Cardiovascular: Regular rate, Regular Rhythm, Normal S1, Normal S2, PMI Normal Abdomen: Bowel Sounds Present, Soft, Non Tender, Non-Distended, No Hepato- splenomegaly, Obese Extremities: No clubbing, No cyanosis, Edema - Nonpitting edema. Skin: No rashes, No breakdown Lymphatic: No Cervical, Supraclavicular, or Inguinal Adenopathy Neurological: Cranial nerves II-XII grossly intact, - - Moving all limbs, global weakness. Psych/Mental Status: Appropriate, Flat Affect, Alert and oriented to time, place, person, mood and affect Microbiology Past 72 Hours 07/27/19 15:40 Mucosa - Nose Influenza Types A,B Direct FA (JAMES) - Final Laboratory Results 07/27/19 15:15: WBC 6.2, RBC 2.43 L, Hgb 8.7 L, Hct 28.6 L, MCV 117.7 H, MCH 35.8 H, MCHC 30.4 L, RDW Std Deviation 89.3 H, RDW Coeff of Mt 20.6 H, Plt Count 78 L, MPV 13.1 H, Immature Gran % (Auto) 1.800 H, Neut % (Auto) 65.7, Lymph % (Auto) 13.5 L, [place] % (Auto) 14.6 H, Eos % (Auto) 3.9, Baso % (Auto) 0.5, Absolute Neuts (auto) 4.1, Absolute Lymphs (auto) 0.84, Nucleated RBC % 0.5, Differential Comment SCANNED, Platelet Estimate MOD DEC, Anisocytosis 1+ 07/27/19 15:15: Sodium 141, Potassium 4.3, Chloride 104, Carbon Dioxide 33.0 H, Anion Gap 4 L, BUN 61 H, Creatinine 1.74 H, Estim Creat Clear Calc 32.76, Est GFR (MDRD) Af Amer 49 L, Est GFR (MDRD) Non-Af 40 L, BUN/Creatinine Ratio 35.1 H , Glucose 104, Calcium 8.6, Total Bilirubin 0.90, Direct Bilirubin 0.43 H, AST 26, ALT 23, Alkaline Phosphatase 77, Troponin I < 0.015, Total Protein 8.5 H, Albumin 3.5, Globulin 5.0 H 07/27/19 15:15: Lactic Acid 1.4 07/27/19 15:15: B-Natriuretic Peptide 719.5 H Clinical Impression(s) from Imaging Studies Acute Abdomen Series 07/27/19 16:23 IMPRESSION: Chronic interstitial changes in both lung melendez with right pleural effusion and associated atelectasis or infiltrate. Follow-up recommended to ensure resolution Degenerative bony changes No acute abdominal or pelvic process Electronically Signed: Enrico Singh MD at 17:11 EST , Service support , Current Medications Azithromycin 500 mg/ Dextrose 255 mls @ 250 mls/hr IV X1 ONE Stop: 07/27/19 18:20 Ceftriaxone Sodium (Rocephin) 1 gm in 50 mls @ 100 mls/hr IV X1 ONE Stop: 07/27/19 17:48 Assessment/Plan All Active Problems (Last Updated 07/27/19 @ 17:44 by Luz Ness MD) Community acquired pneumonia (Acute) Hypoxia (Acute) This is an 79 years old male patient presented to the medicine because of cough, shortness of breath, lethargy and functional decline over the last month and he was found to have right lower lobe infiltrate/consolidation consistent with community acquired pneumonia versus aspiration pneumonia and is being admitted for treatment. #1 community-acquired versus aspiration pneumonia: Chest x-ray reviewed. Lactic acid is normal. No evidence of sepsis or severe sepsis. Patient mentioned that he has been having difficulties swallowing recently with septic types of food. Plan: Admit to MedSurg floor, clear liquids, blood culture, sputum culture, urinalysis, urine culture, start IV Zosyn and Levaquin to cover both for community-acquired and aspiration pneumonia, bronchodilators, chest physiotherapy, aspiration precautions, incentive spirometer, repeat CBC and BMP tomorrow morning, speech therapy and evaluation, PT OT evaluation and treatment. #2 hypoxia: Secondary to #1. He is requiring oxygen at 2 L. Plan as above, IV antibiotics, bronchodilators. #3 liver cirrhosis due to CARBAJAL: He is alert and oriented x3, no evidence of acute hepatic encephalopathy. Although patient was lethargic, he is alert and related x3. This is probably because of pneumonia. Plan: Check serum ammonia, continue lactulose, Aldactone and rifaximin. #4 type 2 diabetes mellitus: Stable, controlled. Hemoglobin A1c was 5.1 on April,. Patient has been not eating or drinking for days now. Plan: Clear liquids, Accu-Cheks every 6 hours, sliding scale, hold glargine and lispro insulin for now. #5 chronic anemia/chronic thrombocytopenia: Secondary to liver disease/liver cirrhosis. Hemoglobin, hematocrit and platelet count are stable at baseline. Plan to monitor. #6 stage III chronic kidney disease: Baseline creatinine is now 1.6 to 2.2 mg/dL. Admission creatinine is 1.74, stable at baseline. #7 hypertension: Blood pressure stable, continue Aldactone and hold Lasix. #8 hypothyroidism: Continue levothyroxine. #9 paroxysmal atrial fibrillation: He is in sinus rhythm, rate is controlled. He is on nadolol which is mainly for liver cirrhosis. He is not on anti- Coblation. #10 hyperlipidemia: Hold statins for now. #11 GERD: Continue Protonix and sucralfate. #12 CODE STATUS: Discussed with the patient's daughter and patient himself. I explained to the patient different types of CODE STATUS including full code, DNR CC and DNR CC. patient clearly mentioned that he does not want any type of aggressive treatment or interventions, no intubation, no resuscitation or mechanical ventilation. Patient's daughter mentioned that he does have paperwork at home that says no resuscitation or aggressive measures. I asked the patient's daughter to bring the paperwork from home. #13 DVT prophylaxis: SCDs. No chemical prophylaxis because of chronic thrombocytopenia. This note was generated with [email or web address] software. It may contain incorrect words, spelling, and punctuation that were not noted in checking the note before signing. Code Visit Inpatient E&M: 41861 Init Hosp L3 Procedures: 70804 Advncd Care Plan 30 Min - Time spent on discussion about CODE STATUS with the patient and his daughter is 18 minutes.
[2019-07-27] MEDS: Ceftriaxone 1 GM/50 ML BAG IV (18:08)
[2019-07-27] MEDS: Lactated Ringers 1,000 ML 75 ML IV (19:34)
[2019-07-27 19:51] LABS: Bedside Glucose 118 mg/dL (70-110)
[2019-07-27] MEDS: Ipratropium/Albuterol Sulfate 3 ML AMPUL.NEB INHALATION (20:16)
[2019-07-27] MEDS: Lactulose 20 GM/30 ML UDC PO (21:05)
[2019-07-27] MEDS: rifAXIMin 550 MG Tablet PO (21:06)
[2019-07-27] MEDS: Sucralfate 1 GM Tablet PO (21:06)
[2019-07-27] MEDS: Pantoprazole Sodium 40 MG Tablet PO (21:06)
[2019-07-28] VITALS (16 sets, daily range): BP systolic 114–122; BP diastolic 47–62; PULSE 63–74; RESP 18–26; TEMP 36.6–37; O2SAT 92–97
[2019-07-28 00:26] LABS: Bedside Glucose 126 mg/dL (70-110)
[2019-07-28] MEDS: Ipratropium/Albuterol Sulfate 3 ML AMPUL.NEB INHALATION ×3 (02:54→20:37)
[2019-07-28] MEDS: Levothyroxine 25 MCG TABLET PO (06:04)
[2019-07-28 06:33] LABS: Bacteria 0 SEEN /hpf (None Seen); Mucous, Urine 0 SEEN /hpf (<or=2+); Red Blood Cells-Urine 0 SEEN /hpf (0-5); Squamous Epithelial Cells - UA 0 SEEN /hpf (0-5)
[2019-07-28 06:48] LABS: Color, Urine Yellow (Yellow); Glucose, Dipstick Normal (Normal); Ketone-Dipstick Negative (Negative); Leukocyte Esterase-Dipstick Negative /ul (Negative); Nitrite-Dipstick Negative (Negative); Occult Blood-Urine Negative /ul (Negative); Protein-Dipstick 15 mg/dl (Negative); Urine Bilirubin Dipstick Negative (Negative); Urine Clarity Clear (Clear); Urine Urobilinogen Normal (Normal)
[2019-07-28 06:49] LABS: White Blood Cells 0-5 SEEN /hpf (0-5)
[2019-07-28 06:55] LABS: Absolute Lymphocyte Count 1.07 X10^3/uL (0.83-4.51); Absolute Neutrophil Count 3.3 X10^3/uL (2.0-7.7); Basophil# 0.02 X10^3/uL; Basophil% 0.3 % (0-1); Eosinophil# 0.26 X10^3/uL; Eosinophils% 4.4 % (0-5); Hematocrit 27.4 % (40-54); Hemoglobin 8.2 g/dL (13.0-16.5); Lymphocyte # 1.07 X10^3/ul (4.0); Lymphocyte % 18.1 % (19-41); Mean Corp Hgb Conc 29.9 g/dL (32-36); Mean Corpuscular Hgb 35.5 pg (27.0-32.0); Mean Corpuscular Volume 118.6 fL (80-94); Mean Platelet Vol. 13.2 fl (6.2-12.0); Monocyte# 1.11 X10^3/uL; Monocyte% 18.8 % (0-10); NRBC Flagged by Analyzer 0.7 % (0-5); Neutrophil # 3.33 X10^3/uL (2.7-7.7); Neutrophil % 56.5 % (47-70); POSITIVE COUNT YES; POSITIVE MORPHOLOGY YES; Platelet Count 76 K/mm3 (150-450); RBC Distribution Width CV 20.9 % (11.6-14.6); RBC Distribution Width SD 90.6 fl (35.1-43.9); Red Blood Count 2.31 M/mm3 (4.6-6.2); White Blood Count 5.9 K/mm3 (4.4-11.0)
[2019-07-28 07:05] LABS: Bedside Glucose 128 mg/dL (70-110)
[2019-07-28 07:05] LABS: Differential Indicated SCAN CRITERIA MET
[2019-07-28] MEDS: Sucralfate 1 GM Tablet PO ×3 (07:05→16:42)
[2019-07-28 07:20] LABS: Differential Comment SCANNED; Hypochromasia 2+; Macrocytosis 2+; Target Cells 1+
[2019-07-28 07:27] LABS: Anion Gap 1 (5-15); BUN 66 mg/dL (7-18); BUN/Creat Ratio 33.8 RATIO (10-20); Calcium,Total 8.7 mg/dL (8.5-10.1); Chloride 106 mmol/L (98-107); Creatinine, Serum 1.95 mg/dL (0.70-1.30); EST Glomerular Filtration Rate 35 mL/min (>60); Est Glom Filt Rate - Afr Amer 43 mL/min (>60); Estimated Creatinine Clearance 29.23 ml/min; Glucose 127 mg/dL (74-106); Sodium Level 139 mmol/L (136-145)
[2019-07-28] MEDS: Ferrous Sulfate 325 MG Tablet PO (08:26)
[2019-07-28] MEDS: Lactated Ringers 1,000 ML 75 ML IV (08:26)
--- NOTE | 2019-07-28 09:27 | CASEMGMT ---
Patient known to EMMIE from previous admission. He is active with [facility]. EMMIE called [facility] and let them know patient was in the hospital. Awilda Torrez is his caseworker intake ([phone]). He has a medical alert button and he gets up to 21 hours of aides a week from [facility]. Kate ALEJANDRA MSW
[2019-07-28 10:11] LABS: Vitamin B12 831 pg/mL (211-911)
[2019-07-28] MEDS: levoFLOXacin IV 500 MG/100 ML BAG 100 MG IV (10:23)
[2019-07-28 10:24] LABS: Iron 155 ug/dL (65-175); Iron Binding Capacity,Total 349 ug/dL (250-450); PERCENT IRON SATURATION 44.4 % (15.0-55.0)
[2019-07-28] MEDS: Lactulose 20 GM/30 ML UDC PO ×2 (10:26→17:52)
[2019-07-28] MEDS: Nadolol 40 MG Tablet PO (10:26)
[2019-07-28] MEDS: Spironolactone 50 MG Tablet 200 MG PO (10:26)
[2019-07-28] MEDS: Pantoprazole Sodium 40 MG Tablet PO (10:26)
[2019-07-28] MEDS: rifAXIMin 550 MG Tablet PO (10:27)
--- NOTE | 2019-07-28 11:00 | RAD_ITS ---
STUDY: X-RAY CHEST REASON FOR EXAM: Male, 79 years old. CHF TECHNIQUE: PA and lateral views of the chest. COMPARISON: None. FINDINGS: Cardiac silhouette enlarged. Pulmonary vascularity increased. Aorta unremarkable. Right greater than left bibasilar opacities, similar to prior. Upper abdomen unremarkable. Osseous structures intact. No pneumothorax. RAD/Chest PA and Lateral IMPRESSION: Findings consistent with CHF/fluid overload, similar to prior. Bibasilar opacities right greater than left most likely represent effusion/atelectasis. Underlying pneumonia should be excluded clinically. Electronically Signed: Maulik Ybarra, at 15:28 EST Tel , Service support ,
--- NOTE | 2019-07-28 11:18 | CASEMGMT ---
Therapy is indicating patient is not safe for home and will need [facility]. Patient is confused right now so SW called patient's daughter who is his POA and left her a voice mail regarding d/c plan. Plan: likely SNF awaiting return phone call from daughter Kate Obrien [place] [employer]
[2019-07-28] MEDS: Furosemide 40 MG/4 ML Vial IV ×2 (11:35→17:53)
[2019-07-28 12:05] LABS: Bedside Glucose 136 mg/dL (70-110)
--- NOTE | 2019-07-28 14:43 | PN_ITS ---
<Ugo Almanzar - Last Filed: 07/28/19 14:43> Patient Problems: Active and Suspected Problems (Last Updated 07/27/19 @ 17:44 by Luz Ness MD) Community acquired pneumonia (Acute) Hypoxia (Acute) Reason for Visit: SOB Subjective: Pt with ongoing SOB. Very lethargic this AM. He is A/O x3, however he states Lozano is the president. No CP. No Cough. Increased LE edema. No abd pain, nausea/vomiting. Vitals/I&O's: Vital Signs Temp Pulse Resp BP Pulse Ox 97.9 F 71 18 121/62 H 92 07/28/19 08:04 07/28/19 13:49 07/28/19 13:49 07/28/19 08:04 07/28/19 13:49 Oxygen Flow Rate (L/min) 2 Oxygen Delivery Method Nasal Cannula Weight: 269 lb 2.951 oz Body Mass Index (BMI) 40.9 Finger Stick Blood Glucose 132 Intake and Output for Last 24 Hours 07/26/19 07/27/19 07/28/19 23:59 23:59 23:59 Intake Total 305 / 445 1541.25 / 1541.25 Output Total 200 / 200 Balance 305 / 445 1341.25 / 1341.25 General: Alert, Oriented x3, Cooperative, Confused, Lethargic HEENT: Atraumatic, PERRLA, EOMI, Normocephalic Neck: Supple, No JVD, Negative Carotid Bruits Lungs: Clear to auscultation, Normal air movement Cardiovascular: Regular rate, No murmurs Abdomen: Bowel Sounds Present, Soft, Non Tender, Obese Extremities: No edema, Capillary Refill Less than 3 Seconds Skin: No rashes, No breakdown Musculoskeletal: No Tenderness to Palpation of Joints or Extremities Neurological: Cranial nerves II-XII grossly intact Psych/Mental Status: - - lethargic, Alert and oriented to time, place, person, mood and affect Microbiology Past 72 Hours 07/27/19 15:40 Mucosa - Nose Influenza Types A,B Direct FA ([facility]) - Final Laboratory Results 07/27/19 15:15: WBC 6.2, RBC 2.43 L, Hgb 8.7 L, Hct 28.6 L, MCV 117.7 H, MCH 35.8 H, MCHC 30.4 L, RDW Std Deviation 89.3 H, RDW Coeff of Mt 20.6 H, Plt Count 78 L, MPV 13.1 H, Immature Gran % (Auto) 1.800 H, Neut % (Auto) 65.7, Lymph % (Auto) 13.5 L, [place] % (Auto) 14.6 H, Eos % (Auto) 3.9, Baso % (Auto) 0.5, Absolute Neuts (auto) 4.1, Absolute Lymphs (auto) 0.84, Nucleated RBC % 0.5, Differential Comment SCANNED, Platelet Estimate MOD DEC, Anisocytosis 1+ 07/27/19 15:15: Sodium 141, Potassium 4.3, Chloride 104, Carbon Dioxide 33.0 H, Anion Gap 4 L, BUN 61 H, Creatinine 1.74 H, Estim Creat Clear Calc 32.76, Est GFR (MDRD) Af Amer 49 L, Est GFR (MDRD) Non-Af 40 L, BUN/Creatinine Ratio 35.1 H , Glucose 104, Calcium 8.6, Total Bilirubin 0.90, Direct Bilirubin 0.43 H, AST 26, ALT 23, Alkaline Phosphatase 77, Troponin I < 0.015, Total Protein 8.5 H, Albumin 3.5, Globulin 5.0 H 07/27/19 15:15: Lactic Acid 1.4 07/27/19 15:15: B-Natriuretic Peptide 719.5 H 07/27/19 19:31: POC Glucose 118 H 07/27/19 19:51: Ammonia 64.0 H 07/28/19 00:05: POC Glucose 126 H 07/28/19 05:59: POC Glucose 128 H 07/28/19 06:20: Urine Color Yellow, Urine Clarity Clear, Urine pH 5.0, Ur Specific Whitman 1.020, Urine Protein 15 H, Urine Glucose (UA) Normal, Urine Ketones Negative, Urine Occult Blood Negative, Urine Nitrite Negative, Urine Bilirubin Negative, Urine Urobilinogen Normal, Ur Leukocyte Esterase Negative, Urine RBC 0 SEEN, Urine WBC 0-5 SEEN, Ur Squamous Epith Cells 0 SEEN, Urine Bacteria 0 SEEN, Urine Mucus 0 SEEN 07/28/19 06:40: WBC 5.9, RBC 2.31 L, Hgb 8.2 L, Hct 27.4 L, MCV 118.6 H, MCH 35.5 H, MCHC 29.9 L, RDW Std Deviation 90.6 H, RDW Coeff of Mt 20.9 H, Plt Count 76 L, MPV 13.2 H, Immature Gran % (Auto) 1.900 H, Neut % (Auto) 56.5, Lymph % (Auto) 18.1 L, [place] % (Auto) 18.8 H, Eos % (Auto) 4.4, Baso % (Auto) 0. 3, Absolute Neuts (auto) 3.3, Absolute Lymphs (auto) 1.07, Nucleated RBC % 0.7, Differential Comment SCANNED, Hypochromasia 2+, Macrocytosis 2+, Target Cells 1+ 07/28/19 06:40: Sodium 139, Potassium 5.0, Chloride 106, Carbon Dioxide 32.0, Anion Gap 1 L, BUN 66 H, Creatinine 1.95 H, Estim Creat Clear Calc 29.23, Est GFR (MDRD) Af Amer 43 L, Est GFR (MDRD) Non-Af 35 L, BUN/Creatinine Ratio 33.8 H , Glucose 127 H, Calcium 8.7 07/28/19 06:40: Vitamin B12 831 07/28/19 06:40: Iron 155, TIBC 349, Iron Saturation 44.4, Folate 79.30 H 07/28/19 11:49: POC Glucose 136 H Current Medications Acetaminophen (Tylenol) 650 mg PO Q6H PRN PRN PRN Reason: Pain Score 1-3/Temp > 100.7 F Albuterol/Ipratropium (Duoneb) 3 ml INHALATION Q6H.RT [facility] Last Admin: 07/28/19 13:20 Dose: 3 ml Documented by: Dextrose (D50w Syringe) 0 gm IV X1 PRN; Protocol PRN Reason: Hypoglycemia Ferrous Sulfate (Ferrous Sulfate) 325 mg PO DAILYCM [facility] Last Admin: 07/28/19 08:26 Dose: 325 mg Documented by: Furosemide (Lasix) 40 mg IV BID@1000,1800 [facility] Last Admin: 07/28/19 11:35 Dose: 40 mg Documented by: Glucagon () 1 mg IM .X1 PRN PRN Reason: Hypoglycemia Piperacillin Sod/Tazobactam (Sod 3.375 gm/ Sodium Chloride) 50 mls @ 12.5 mls/hr IV Q8 [facility] Last Admin: 07/28/19 13:33 Dose: 12.5 mls/hr Documented by: Levofloxacin (Levaquin Iv) 250 mg in 50 mls @ 50 mls/hr IV Q24 [facility] Sodium Chloride () 250 mls @ 15 mls/hr IV .[id number] PRN PRN Reason: Saline Flush Last Infusion: 07/28/19 06:02 Dose: 0 mls/hr Documented by: Insulin Human Lispro (Humalog Kwikpen (Bkc)) 0 unit SC Q6 [facility]; Protocol Last Admin: 07/28/19 11:50 Dose: Not Given Documented by: Lactulose (Chronulac, Cephulac) 20 gm PO BID [facility] Last Admin: 07/28/19 10:26 Dose: 20 gm Documented by: Levothyroxine Sodium (Synthroid) 25 mcg PO DAILY@0600 [facility] Last Admin: 07/28/19 06:04 Dose: 25 mcg Documented by: Nadolol (Corgard) 40 mg PO DAILY [facility] Last Admin: 07/28/19 10:26 Dose: 40 mg Documented by: Ondansetron HCl (Zofran) 4 mg IV Q8H PRN PRN PRN Reason: NAUSEA/VOMITING Pantoprazole Sodium (Protonix) 40 mg PO BID [facility] Last Admin: 07/28/19 10:26 Dose: 40 mg Documented by: Rifaximin (Xifaxan) 550 mg PO BID [facility] Last Admin: 07/28/19 10:27 Dose: 550 mg Documented by: Senna/Docusate Sodium (Senokot-S, Ada-Colace) 2 tablet PO BID PRN PRN PRN Reason: Constipation Sodium Chloride () 10 - 40 ml IV UD PRN PRN Reason: SALINE FLUSH Spironolactone (Aldactone) 200 mg PO DAILY [facility] Last Admin: 07/28/19 10:26 Dose: 200 mg Documented by: Sucralfate (Carafate) 1 gm PO 1HR_ACHS [facility] Last Admin: 07/28/19 10:27 Dose: 1 gm Documented by: STROKE Vital Signs/Narrative: Vital Signs Pulse Resp Pulse Ox 07/28/19 13:49 71 18 92 Medical Necessity - Tobacco Use Smoking Status: Former smoker Tobacco Use: Cigars Assessment/Plan All Active Problems (Last Updated 12/03/19 @ 17:44 by Luz Ness MD) Community acquired pneumonia (Acute) Hypoxia (Acute) 1. CAP vs CHF exacerbation - fluid overloaded, acute abd xray with pleural effusion/infiltrate/atelectasis. Inc BL LE edema. BNP elevated. Minimal improvement overnight. IV fluids stopped. Started Lasix. CXR today pending. Empiric abx (levaquin/zosyn) continued for now. No fever or leukocytosis. No productive cough. Lactate negative. UA is negative. 2. PENG on CKD III - consult nephrology. Suspect cardiorenal syndrome. Worse with fluids. Lasix started as above. 3. Chronic macrocytic anemia - folate/b12 sufficient, iron studies unremarkable. Trend. 4. Hx STEVENSON - ammonia 64, lethargic. mild Direct bili elevation, LFTs otherwise normal. Continue xifaxan, Continue lactulose, titrate to 3 loose BM/day 5. Thrombocytopenia - likely 2/2 stevenson - platelets stable. 6. Hypothyroidism - Continue Synthroid - check tsh 7. DMt2 with morbid obesity- SSI. Lantus held for borderline low blood glucose 8. PAfib - rate stable. continue nadolol 9. GERD - PPI/Carafate 10. HLD - simvastatin at home. currently held. DVT ppx: SCDs - low platelets. This patient was seen by Ugo Almanzar PA-C under the supervision of Doctor Maria Del Carmen. <Vijay Joyce - Last Filed: 07/28/19 16:40> Vitals/I&O's: Vital Signs Temp Pulse Resp BP Pulse Ox 98.2 F 63 22 H 122/61 H 97 07/28/19 14:45 07/28/19 14:45 07/28/19 14:47 07/28/19 14:45 07/28/19 14:45 Oxygen Flow Rate (L/min) 2 Oxygen Delivery Method Nasal Cannula Weight: 122.1 kg Body Mass Index (BMI) 40.9 Finger Stick Blood Glucose 132 Intake and Output for Last 24 Hours 07/26/19 07/27/19 07/28/19 23:59 23:59 23:59 Intake Total 305 / 445 1541.25 / 1541.25 Output Total 200 / 200 Balance 305 / 445 1341.25 / 1341.25 Microbiology Past 72 Hours 07/27/19 15:40 Mucosa - Nose Influenza Types A,B Direct FA ([facility]) - Final Laboratory Results 07/27/19 19:31: POC Glucose 118 H 07/27/19 19:51: Ammonia 64.0 H 07/28/19 00:05: POC Glucose 126 H 07/28/19 05:59: POC Glucose 128 H 07/28/19 06:20: Urine Color Yellow, Urine Clarity Clear, Urine pH 5.0, Ur Specific [place] 1.020, Urine Protein 15 H, Urine Glucose (UA) Normal, Urine Ketones Negative, Urine Occult Blood Negative, Urine Nitrite Negative, Urine Bilirubin Negative, Urine Urobilinogen Normal, Ur Leukocyte Esterase Negative, Urine RBC 0 SEEN, Urine WBC 0-5 SEEN, Ur Squamous Epith Cells 0 SEEN, Urine Bacteria 0 SEEN, Urine Mucus 0 SEEN 07/28/19 06:40: WBC 5.9, RBC 2.31 L, Hgb 8.2 L, Hct 27.4 L, MCV 118.6 H, MCH 35.5 H, MCHC 29.9 L, RDW Std Deviation 90.6 H, RDW Coeff of Mt 20.9 H, Plt Count 76 L, MPV 13.2 H, Immature Gran % (Auto) 1.900 H, Neut % (Auto) 56.5, Lymph % (Auto) 18.1 L, [place] % (Auto) 18.8 H, Eos % (Auto) 4.4, Baso % (Auto) 0.3, Absolute Neuts (auto) 3.3, Absolute Lymphs (auto) 1.07, Nucleated RBC % 0.7, Differential Comment SCANNED, Hypochromasia 2+, Macrocytosis 2+, Target Cells 1+ 07/28/19 06:40: Sodium 139, Potassium 5.0, Chloride 106, Carbon Dioxide 32.0, Anion Gap 1 L, BUN 66 H, Creatinine 1.95 H, Estim Creat Clear Calc 29.23, Est GFR (MDRD) Af Amer 43 L, Est GFR (MDRD) Non-Af 35 L, BUN/Creatinine Ratio 33.8 H , Glucose 127 H, Calcium 8.7 07/28/19 06:40: Vitamin B12 831 07/28/19 06:40: Iron 155, TIBC 349, Iron Saturation 44.4, Folate 79.30 H 07/28/19 06:40: TSH 1.97 07/28/19 11:49: POC Glucose 136 H Current Medications Acetaminophen (Tylenol) 650 mg PO Q6H PRN PRN PRN Reason: Pain Score 1-3/Temp > 100.7 F Albuterol/Ipratropium (Duoneb) 3 ml INHALATION Q6H.RT [facility] Last Admin: 07/28/19 13:20 Dose: 3 ml Documented by: Calamine/Phenol (Calmoseptine Ointment) 1 applic TOPICAL BID [facility]; Protocol Dextrose (D50w Syringe) 0 gm IV X1 PRN; Protocol PRN Reason: Hypoglycemia Ferrous Sulfate (Ferrous Sulfate) 325 mg PO DAILYCM [facility] Last Admin: 07/28/19 08:26 Dose: 325 mg Documented by: Furosemide (Lasix) 40 mg IV BID@1000,1800 [facility] Last Admin: 07/28/19 11:35 Dose: 40 mg Documented by: Glucagon () 1 mg IM .X1 PRN PRN Reason: Hypoglycemia Piperacillin Sod/Tazobactam (Sod 3.375 gm/ Sodium Chloride) 50 mls @ 12.5 mls/hr IV Q8 [facility] Last Admin: 07/28/19 13:33 Dose: 12.5 mls/hr Documented by: Levofloxacin (Levaquin Iv) 250 mg in 50 mls @ 50 mls/hr IV Q24 [facility] Sodium Chloride () 250 mls @ 15 mls/hr IV .[id number] PRN PRN Reason: Saline Flush Last Infusion: 07/28/19 06:02 Dose: 0 mls/hr Documented by: Insulin Human Lispro (Humalog Kwikpen (Bkc)) 0 unit SC Q6 [facility]; Protocol Last Admin: 07/28/19 11:50 Dose: Not Given Documented by: Lactulose (Chronulac, Cephulac) 20 gm PO Q4 [facility] Levothyroxine Sodium (Synthroid) 25 mcg PO DAILY@0600 [facility] Last Admin: 07/28/19 06:04 Dose: 25 mcg Documented by: Nadolol (Corgard) 40 mg PO DAILY [facility] Last Admin: 07/28/19 10:26 Dose: 40 mg Documented by: Ondansetron HCl (Zofran) 4 mg IV Q8H PRN PRN PRN Reason: NAUSEA/VOMITING Pantoprazole Sodium (Protonix) 40 mg PO BID [facility] Last Admin: 07/28/19 10:26 Dose: 40 mg Documented by: Rifaximin (Xifaxan) 550 mg PO BID [facility] Last Admin: 07/28/19 10:27 Dose: 550 mg Documented by: Senna/Docusate Sodium (Senokot-S, Ada-Colace) 2 tablet PO BID PRN PRN PRN Reason: Constipation Sodium Chloride () 10 - 40 ml IV UD PRN PRN Reason: SALINE FLUSH Sucralfate (Carafate) 1 gm PO 1HR_ACHS [facility] Last Admin: 07/28/19 10:27 Dose: 1 gm Documented by: STROKE Vital Signs/Narrative: Vital Signs Temp Pulse Resp BP Pulse Ox 07/28/19 14:47 22 H 07/28/19 14:45 98.2 F 63 22 H 122/61 H 97 07/28/19 14:05 65 07/28/19 13:49 71 18 92 Assessment/Plan This patient was seen in conjunction with Ugo Almanzar PA-C . I have independently interviewed and examined the patient and reviewed pertinent historical, laboratory, and other data. Please refer to Ugo Almanzar PA-C note for details of this patient's presentation, findings, and recommendations. I have reviewed Ugo Almanzar PA-C note and concur with documented findings. In brief, patient is a 79-year-old gentleman who presented with progressive shortness of breath and assessment of acute congestive heart failure made admitted to a monitored bed for further management. There was also a question of infiltrate on patient checks x-ray obtained on admission patient was therefore started on Levaquin and Zosyn. 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 SKIN: No Rash PSYCH; Flat affect Assessment: 1. Acute dyspnea 2. Acute congestive heart failure with preserved ejection fraction 3. Suspected community-acquired pneumonia 4. Morbid obesity with BMI of 40.9 5. Diabetes mellitus type 2 6. Dyslipidemia 7. Nonalcoholic fatty liver disease 8. Hypothyroidism 9. Dyslipidemia 10. Thrombocytopenia secondary to patient nonalcoholic fatty liver disease 11. Acute kidney injury suspected to be cardiorenal 12. Chronic kidney disease stage III 13. Anemia secondary to anemia of chronic disorder 14. Paroxysmal atrial fibrillation Recommendations: 1. I have discussed the results of my overview and impressions with the patient 2. Options for management were reviewed Code Visit Inpatient E&M: 10234 Subs Hosp L3
[2019-07-28 15:26] LABS: Thyroid Stim Hormone (TSH) 1.97 uIU/mL (0.358-3.74)
--- NOTE | 2019-07-28 16:27 | CON.PCM_ITS ---
Consultation - Renal 07/28/19 PCP/ Referring MD: Requesting physician: [] Primary care physician: ALBERTO Delgadillo Reason for Consultation:: PENG on CKD - History of Present Illness History of Present Illness: The patient is a 79 year old morbidly obese M with multiple medical comorbidities presented to the emergency room on 07/27 for shortness of breath, cough and lethargy. The patient remains lethargic, poor historian but able to answer questions. He complained of a cough, no fever or chills, no chest pain. He has mild abdominal pain. He denied falling at home. He has CKD stage 3 due to diabetes, hypertensive nephrosclerosis. Baseline creatinine 1.56 to 1.8. Creatinine on admit 1.74 now at 1.95 on lasix bid and spironolactone. He has CARBAJAL with hx GI Bleed requiring multiple blood transfusions. He has been on lasix and spironolactone at home. Patient condition continued to decline, weak, unable to ambulate. Over the last several days, he has been having cough with minimal sputum with poor oral intake. He had a history of liver cirrhosis due to CARBAJAL and he has been on lactulose, Aldactone and rifaximin. Chest x-ray which was included in the x-ray abdomen revealed right lower lobe infiltrate/consolidation. He was started on iv antibx with levaquin, zithromax and pip/tazo. - Allergies Allergies: Allergies No Known Allergies Allergy (Verified 07/27/19 14:36) - Current Medications Current Medications: Current Medications Acetaminophen (Tylenol) 650 mg PO Q6H PRN PRN PRN Reason: Pain Score 1-3/Temp > 100.7 F Albuterol/Ipratropium (Duoneb) 3 ml INHALATION Q6H.RT [facility] Last Admin: 07/28/19 13:20 Dose: 3 ml Documented by: Calamine/Phenol (Calmoseptine Ointment) 1 applic TOPICAL BID [facility]; Protocol Dextrose (D50w Syringe) 0 gm IV X1 PRN; Protocol PRN Reason: Hypoglycemia Ferrous Sulfate (Ferrous Sulfate) 325 mg PO DAILYCM [facility] Last Admin: 07/28/19 08:26 Dose: 325 mg Documented by: Furosemide (Lasix) 40 mg IV BID@1000,1800 [facility] Last Admin: 07/28/19 11:35 Dose: 40 mg Documented by: Glucagon () 1 mg IM .X1 PRN PRN Reason: Hypoglycemia Piperacillin Sod/Tazobactam (Sod 3.375 gm/ Sodium Chloride) 50 mls @ 12.5 mls/hr IV Q8 [facility] Last Admin: 07/28/19 13:33 Dose: 12.5 mls/hr Documented by: Levofloxacin (Levaquin Iv) 250 mg in 50 mls @ 50 mls/hr IV Q24 [facility] Sodium Chloride () 250 mls @ 15 mls/hr IV .[id number] PRN PRN Reason: Saline Flush Last Infusion: 07/28/19 06:02 Dose: 0 mls/hr Documented by: Insulin Human Lispro (Humalog Kwikpen (Bkc)) 0 unit SC Q6 [facility]; Protocol Last Admin: 07/28/19 11:50 Dose: Not Given Documented by: Lactulose (Chronulac, Cephulac) 20 gm PO Q4 [facility] Levothyroxine Sodium (Synthroid) 25 mcg PO DAILY@0600 [facility] Last Admin: 07/28/19 06:04 Dose: 25 mcg Documented by: Nadolol (Corgard) 40 mg PO DAILY [facility] Last Admin: 07/28/19 10:26 Dose: 40 mg Documented by: Ondansetron HCl (Zofran) 4 mg IV Q8H PRN PRN PRN Reason: NAUSEA/VOMITING Pantoprazole Sodium (Protonix) 40 mg PO BID [facility] Last Admin: 07/28/19 10:26 Dose: 40 mg Documented by: Rifaximin (Xifaxan) 550 mg PO BID [facility] Last Admin: 07/28/19 10:27 Dose: 550 mg Documented by: Senna/Docusate Sodium (Senokot-S, Ada-Colace) 2 tablet PO BID PRN PRN PRN Reason: Constipation Sodium Chloride () 10 - 40 ml IV UD PRN PRN Reason: SALINE FLUSH Sucralfate (Carafate) 1 gm PO 1HR_ACHS [facility] Last Admin: 07/28/19 10:27 Dose: 1 gm Documented by: - Past Medical History Past Medical History (Chronic Problems): Chronic Problems (Last Updated 07/27/19 @ 17:44 by Luz Ness MD) AVM (arteriovenous malformation) (Chronic) Gastric polyp (Chronic) CARBAJAL (nonalcoholic steatohepatitis) (Chronic) Hypothyroidism (Chronic) GERD (gastroesophageal reflux disease) (Chronic) Paroxysmal atrial fibrillation (Chronic) Morbid obesity (Chronic) Aortic stenosis (Chronic) Chronic anemia (Chronic) Type 2 diabetes mellitus (Chronic) Hyperlipidemia (Chronic) Liver cirrhosis (Chronic) Chronic kidney disease, stage III (moderate) (Chronic) HTN (hypertension) (Chronic) - Past Surgical History Surgical History: herniorrhaphy, - - prostate surgery, circumcision - Social History Smoking Status: Former smoker Alcohol: None Drugs: None - Family History Maternal History Items: Diabetes Paternal History Items: Cancer - Prostate Patient Problems: Active and Suspected Problems (Last Updated 07/27/19 @ 17:44 by Luz Ness MD) Community acquired pneumonia (Acute) Hypoxia (Acute) - Physical Exam Vitals/I&O's: Vital Signs Temp Pulse Resp BP Pulse Ox 98.2 F 63 22 H 122/61 H 97 07/28/19 14:45 07/28/19 14:45 07/28/19 14:47 07/28/19 14:45 07/28/19 14:45 Oxygen Flow Rate (L/min) 2 Oxygen Delivery Method Nasal Cannula Weight: 122.1 kg Body Mass Index (BMI) 40.9 Finger Stick Blood Glucose 132 Intake and Output for Last 24 Hours 07/26/19 07/27/19 07/28/19 23:59 23:59 23:59 Intake Total 305 / 445 1541.25 / 1541.25 Output Total 200 / 200 Balance 305 / 445 1341.25 / 1341.25 General: Lethargic - slow to arrouse, responsive Lungs: Wheezes - faint, poor inspiratory effort Cardiovascular: Regular rate Abdomen: Bowel Sounds Present, Soft, Non Tender, Distended, Obese Extremities: Edema Skin: No rashes Musculoskeletal: - - muscle weakness Neurological: - - unable to assess, poor cognition Psych/Mental Status: - - eyes closed, lethargic, Alert and oriented to time, place, person, mood and affect Microbiology Past 72 Hours 07/27/19 15:40 Mucosa - Nose Influenza Types A,B Direct FA (JAMES) - Final Laboratory Results 07/27/19 19:31: POC Glucose 118 H 07/27/19 19:51: Ammonia 64.0 H 07/28/19 00:05: POC Glucose 126 H 07/28/19 05:59: POC Glucose 128 H 07/28/19 06:20: Urine Color Yellow, Urine Clarity Clear, Urine pH 5.0, Ur Specific [place] 1.020, Urine Protein 15 H, Urine Glucose (UA) Normal, Urine Ketones Negative, Urine Occult Blood Negative, Urine Nitrite Negative, Urine Bilirubin Negative, Urine Urobilinogen Normal, Ur Leukocyte Esterase Negative, Urine RBC 0 SEEN, Urine WBC 0-5 SEEN, Ur Squamous Epith Cells 0 SEEN, Urine Bacteria 0 SEEN, Urine Mucus 0 SEEN 07/28/19 06:40: WBC 5.9, RBC 2.31 L, Hgb 8.2 L, Hct 27.4 L, MCV 118.6 H, MCH 35.5 H, MCHC 29.9 L, RDW Std Deviation 90.6 H, RDW Coeff of Mt 20.9 H, Plt Count 76 L, MPV 13.2 H, Immature Gran % (Auto) 1.900 H, Neut % (Auto) 56.5, Lymph % (Auto) 18.1 L, [place] % (Auto) 18.8 H, Eos % (Auto) 4.4, Baso % (Auto) 0.3, Absolute Neuts (auto) 3.3, Absolute Lymphs (auto) 1.07, Nucleated RBC % 0.7, Differential Comment SCANNED, Hypochromasia 2+, Macrocytosis 2+, Target Cells 1+ 07/28/19 06:40: Sodium 139, Potassium 5.0, Chloride 106, Carbon Dioxide 32.0, Anion Gap 1 L, BUN 66 H, Creatinine 1.95 H, Estim Creat Clear Calc 29.23, Est GFR (MDRD) Af Amer 43 L, Est GFR (MDRD) Non-Af 35 L, BUN/Creatinine Ratio 33.8 H , Glucose 127 H, Calcium 8.7 07/28/19 06:40: Vitamin B12 831 07/28/19 06:40: Iron 155, TIBC 349, Iron Saturation 44.4, Folate 79.30 H 07/28/19 06:40: TSH 1.97 07/28/19 11:49: POC Glucose 136 H Clinical Impression(s) from Imaging Studies Acute Abdomen Series 07/27/19 16:23 IMPRESSION: Chronic interstitial changes in both lung melendez with right pleural effusion and associated atelectasis or infiltrate. Follow-up recommended to ensure resolution Degenerative bony changes No acute abdominal or pelvic process Electronically Signed: Enrico Singh MD at 17:11 EST , Service support , Chest X-Ray 07/28/19 11:00 IMPRESSION: Findings consistent with CHF/fluid overload, similar to prior. Bibasilar opacities right greater than left most likely represent effusion/atelectasis. Underlying pneumonia should be excluded clinically. Electronically Signed: Maulik Ybarra, at 15:28 EST Tel , Service support , Current Medications Acetaminophen (Tylenol) 650 mg PO Q6H PRN PRN PRN Reason: Pain Score 1-3/Temp > 100.7 F Albuterol/Ipratropium (Duoneb) 3 ml INHALATION Q6H.RT [facility] Last Admin: 07/28/19 13:20 Dose: 3 ml Documented by: Calamine/Phenol (Calmoseptine Ointment) 1 applic TOPICAL BID [facility]; Protocol Dextrose (D50w Syringe) 0 gm IV X1 PRN; Protocol PRN Reason: Hypoglycemia Ferrous Sulfate (Ferrous Sulfate) 325 mg PO DAILYCM [facility] Last Admin: 07/28/19 08:26 Dose: 325 mg Documented by: Furosemide (Lasix) 40 mg IV BID@1000,1800 [facility] Last Admin: 07/28/19 11:35 Dose: 40 mg Documented by: Glucagon () 1 mg IM .X1 PRN PRN Reason: Hypoglycemia Piperacillin Sod/Tazobactam (Sod 3.375 gm/ Sodium Chloride) 50 mls @ 12.5 mls/hr IV Q8 [facility] Last Admin: 07/28/19 13:33 Dose: 12.5 mls/hr Documented by: Levofloxacin (Levaquin Iv) 250 mg in 50 mls @ 50 mls/hr IV Q24 [facility] Sodium Chloride () 250 mls @ 15 mls/hr IV .[id number] PRN PRN Reason: Saline Flush Last Infusion: 07/28/19 06:02 Dose: 0 mls/hr Documented by: Insulin Human Lispro (Humalog Kwikpen (Bkc)) 0 unit SC Q6 [facility]; Protocol Last Admin: 07/28/19 11:50 Dose: Not Given Documented by: Lactulose (Chronulac, Cephulac) 20 gm PO Q4 [facility] Levothyroxine Sodium (Synthroid) 25 mcg PO DAILY@0600 [facility] Last Admin: 07/28/19 06:04 Dose: 25 mcg Documented by: Nadolol (Corgard) 40 mg PO DAILY [facility] Last Admin: 07/28/19 10:26 Dose: 40 mg Documented by: Ondansetron HCl (Zofran) 4 mg IV Q8H PRN PRN PRN Reason: NAUSEA/VOMITING Pantoprazole Sodium (Protonix) 40 mg PO BID [facility] Last Admin: 07/28/19 10:26 Dose: 40 mg Documented by: Rifaximin (Xifaxan) 550 mg PO BID [facility] Last Admin: 07/28/19 10:27 Dose: 550 mg Documented by: Senna/Docusate Sodium (Senokot-S, Ada-Colace) 2 tablet PO BID PRN PRN PRN Reason: Constipation Sodium Chloride () 10 - 40 ml IV UD PRN PRN Reason: SALINE FLUSH Sucralfate (Carafate) 1 gm PO 1HR_ACHS [facility] Last Admin: 07/28/19 10:27 Dose: 1 gm Documented by: Assessment/Plan All Active Problems (Last Updated 07/27/19 @ 17:44 by Luz Ness MD) Community acquired pneumonia (Acute) Hypoxia (Acute) 1. CKD stage 3 due to nephrosclerosis with creatinine at baseline 1.7-1.8. Creatinine 1.95 today. Hold spironolactone for K 5.0. continue iv lasix for edema, dyspnea 2. CARBAJAL with ascites, cirrhosis, GI bleed, encephalopathy 3. encephalopathy with hyperammonemia continue lactulose and xifaxin 4. CAP on iv antbx DW primary team
[2019-07-28] MEDS: Acetaminophen 325 MG Tablet 650 MG PO (17:51)
[2019-07-28] MEDS: 0.9% Saline Lock 10 ML Syringe IV (17:53)
[2019-07-28 18:05] LABS: Bedside Glucose 125 mg/dL (70-110)
[2019-07-28] MEDS: Menthol/Lanolin/Calamine/Znox 113 GM Tube 1 APPLIC TOPICAL (23:00)
[2019-07-29] VITALS (9 sets, daily range): BP systolic 108–110; BP diastolic 36–57; PULSE 70–75; RESP 18–24; TEMP 36.8–37.3; O2SAT 94–96
[2019-07-29 02:15] LABS: Bedside Glucose 135 mg/dL (70-110)
[2019-07-29 05:30] LABS: Absolute Lymphocyte Count 1.18 X10^3/uL (0.83-4.51); Absolute Neutrophil Count 5.9 X10^3/uL (2.0-7.7); Basophil# 0.04 X10^3/uL; Basophil% 0.4 % (0-1); Eosinophil# 0.08 X10^3/uL; Eosinophils% 0.8 % (0-5); Hematocrit 29.7 % (40-54); Hemoglobin 8.7 g/dL (13.0-16.5); Lymphocyte # 1.18 X10^3/ul (4.0); Lymphocyte % 12.3 % (19-41); Mean Corp Hgb Conc 29.3 g/dL (32-36); Mean Corpuscular Hgb 35.7 pg (27.0-32.0); Mean Corpuscular Volume 121.7 fL (80-94); Mean Platelet Vol. 12.7 fl (6.2-12.0); Monocyte# 2.14 X10^3/uL; Monocyte% 22.2 % (0-10); NRBC Flagged by Analyzer 0.9 % (0-5); Neutrophil # 5.86 X10^3/uL (2.7-7.7); POSITIVE DIFFERENTIAL YES; POSITIVE MORPHOLOGY YES; Platelet Count 100 K/mm3 (150-450); RBC Distribution Width CV 20.2 % (11.6-14.6); RBC Distribution Width SD 91.6 fl (35.1-43.9); Red Blood Count 2.44 M/mm3 (4.6-6.2); White Blood Count 9.6 K/mm3 (4.4-11.0)
[2019-07-29 05:41] LABS: Differential Indicated SCAN CRITERIA MET
[2019-07-29 05:41] LABS: Bedside Glucose 135 mg/dL (70-110)
[2019-07-29 06:13] LABS: ALB/GLOB Ratio 0.7 RATIO (0.9-2.4); AST(SGOT) 17 U/L (15-37); Alanine Aminotransfer ALT/SGPT 20 U/L (16-61); Albumin, Serum 3.4 g/dL (3.2-5.0); Alkaline Phosphatase 75 U/L (45-117); Anion Gap 6 (5-15); BUN 79 mg/dL (7-18); BUN/Creat Ratio 26.7 RATIO (10-20); Calcium,Total 8.7 mg/dL (8.5-10.1); Chloride 104 mmol/L (98-107); Creatinine, Serum 2.96 mg/dL (0.70-1.30); EST Glomerular Filtration Rate 22 mL/min (>60); Est Glom Filt Rate - Afr Amer 26 mL/min (>60); Estimated Creatinine Clearance 19.26 ml/min; Globulin 5.2 g/dL (2.2-4.2); Glucose 146 mg/dL (74-106); Potassium 6.1 mmol/L (3.5-5.1); Protein, Total 8.6 g/dL (6.4-8.2); Sodium Level 140 mmol/L (136-145)
[2019-07-29 06:27] LABS: Anisocytosis 1+; Differential Comment SCANNED
[2019-07-29] MEDS: Sodium Polystyrene Sulfonate 15 GM/60 ML UDC PO (07:00)
[2019-07-29] MEDS: Ipratropium/Albuterol Sulfate 3 ML AMPUL.NEB INHALATION (07:19)
[2019-07-29] MEDS: 0.9% Saline Lock 10 ML Syringe IV (08:06)
--- NOTE | 2019-07-29 08:51 | PCM.PN.HOSP ---
Patient Problems: Active and Suspected Problems (Last Updated 07/27/19 @ 17:44 by Luz Ness MD) Altered mental state (Acute) Community acquired pneumonia (Acute) Hypoxia (Acute) Reason for Visit: Follow-up CHF and community-acquired pneumonia Subjective: Condition deteriorated overnight. Patient level of sensorium markedly decreased. Potassium 6.3 he did receive Kayexalate. In view of worsening patient clinical condition family was notified about his grave prognosis. Discussed since also initiated to consult hospice/palliative care for end-of-life care Objective: GENERAL: Obtunded HEENT: Atraumatic; EYES; Anicteric, NECK; supple, normal thyroid, RESPIRATORY: Diminished to auscultation CARDIOVASCULAR: Regular S1 S2, GI: soft, normoactive bowel sounds, : No Renal angle tenderness; EXTREMITIES: Bipedal edema, no clubbing, MUSCULOSKELETAL: no muscle waisting NEURO: Obtunded SKIN: No Rash PSYCH;Obtunded Vitals/I&O's: Vital Signs Temp Pulse Resp BP Pulse Ox 99.2 F H 72 18 108/42 L 94 07/29/19 08:23 07/29/19 08:23 07/29/19 08:23 07/29/19 08:23 07/29/19 07:19 Oxygen Flow Rate (L/min) 3 Oxygen Delivery Method Nasal Cannula Weight: 122.1 kg Body Mass Index (BMI) 40.9 Finger Stick Blood Glucose 132 Intake and Output for Last 24 Hours 07/27/19 07/28/19 07/29/19 23:59 23:59 23:59 Intake Total 305 / 445 1591.25 / 1616.25 75 / 75 Output Total 200 / 200 Balance 305 / 445 1391.25 / 1416.25 75 / 75 Microbiology Past 72 Hours 07/27/19 15:40 Mucosa - Nose Influenza Types A,B Direct FA (JAMES) - Final Laboratory Results 07/28/19 06:40: Vitamin B12 831 07/28/19 06:40: Iron 155, TIBC 349, Iron Saturation 44.4, Folate 79.30 H 07/28/19 06:40: TSH 1.97 07/28/19 11:49: POC Glucose 136 H 07/28/19 17:51: POC Glucose 125 H 07/29/19 02:01: POC Glucose 135 H 07/29/19 05:10: WBC 9.6, RBC 2.44 L, Hgb 8.7 L, Hct 29.7 L, MCV 121.7 H, MCH 35.7 H, MCHC 29.3 L, RDW Std Deviation 91.6 H, RDW Coeff of Mt 20.2 H, Plt Count 100 L, MPV 12.7 H, Immature Gran % (Auto) 3.300 H, Neut % (Auto) 61.0, Lymph % (Auto) 12.3 L, [place] % (Auto) 22.2 H, Eos % (Auto) 0.8, Baso % (Auto) 0.4, Absolute Neuts (auto) 5.9, Absolute Lymphs (auto) 1.18, Nucleated RBC % 0.9, Differential Comment SCANNED, Anisocytosis 1+ 07/29/19 05:10: Sodium 140, Potassium 6.1 H*, Chloride 104, Carbon Dioxide 30.0, Anion Gap 6, BUN 79 H, Creatinine 2.96 H, Estim Creat Clear Calc 19.26, Est GFR (MDRD) Af Amer 26 L, Est GFR (MDRD) Non-Af 22 L, BUN/Creatinine Ratio 26.7 H, Glucose 146 H, Calcium 8.7, Total Bilirubin 1.20 H, AST 17, ALT 20, Alkaline Phosphatase 75, Total Protein 8.6 H, Albumin 3.4, Globulin 5.2 H, Albumin/Globulin Ratio 0.7 L 07/29/19 05:31: POC Glucose 135 H Current Medications Acetaminophen (Tylenol) 650 mg PO Q6H PRN PRN PRN Reason: Pain Score 1-3/Temp > 100.7 F Last Admin: 07/28/19 17:51 Dose: 650 mg Documented by: Albuterol/Ipratropium (Duoneb) 3 ml INHALATION Q6H.RT [facility] Last Admin: 07/29/19 07:19 Dose: 3 ml Documented by: Calamine/Phenol (Calmoseptine Ointment) 1 applic TOPICAL BID [facility]; Protocol Last Admin: 07/28/19 23:00 Dose: 1 applicatio Documented by: Dextrose (D50w Syringe) 0 gm IV X1 PRN; Protocol PRN Reason: Hypoglycemia Ferrous Sulfate (Ferrous Sulfate) 325 mg PO DAILYCM [facility] Last Admin: 07/29/19 08:16 Dose: Not Given Documented by: Furosemide (Lasix) 40 mg IV BID@1000,1800 [facility] Last Admin: 07/28/19 17:53 Dose: 40 mg Documented by: Glucagon () 1 mg IM .X1 PRN PRN Reason: Hypoglycemia Piperacillin Sod/Tazobactam (Sod 3.375 gm/ Sodium Chloride) 50 mls @ 12.5 mls/hr IV Q8 [facility] Last Admin: 07/29/19 05:18 Dose: 12.5 mls/hr Documented by: Levofloxacin (Levaquin Iv) 250 mg in 50 mls @ 50 mls/hr IV Q24 [facility] Sodium Chloride () 250 mls @ 15 mls/hr IV .[id number] PRN PRN Reason: Saline Flush Last Infusion: 07/28/19 18:06 Dose: 15 mls/hr Documented by: Insulin Human Lispro (Humalog Kwikpen (Bkc)) 0 unit SC Q6 [facility]; Protocol Last Admin: 07/29/19 05:34 Dose: Not Given Documented by: Lactulose (Chronulac, Cephulac) 20 gm PO Q4 [facility] Last Admin: 07/29/19 05:18 Dose: Not Given Documented by: Levothyroxine Sodium (Synthroid) 25 mcg PO DAILY@0600 [facility] Last Admin: 07/29/19 05:18 Dose: Not Given Documented by: Nadolol (Corgard) 40 mg PO DAILY [facility] Last Admin: 07/28/19 10:26 Dose: 40 mg Documented by: Ondansetron HCl (Zofran) 4 mg IV Q8H PRN PRN PRN Reason: NAUSEA/VOMITING Pantoprazole Sodium (Protonix) 40 mg PO BID [facility] Last Admin: 07/28/19 23:40 Dose: Not Given Documented by: Rifaximin (Xifaxan) 550 mg PO BID [facility] Last Admin: 07/28/19 23:40 Dose: Not Given Documented by: Senna/Docusate Sodium (Senokot-S, Ada-Colace) 2 tablet PO BID PRN PRN PRN Reason: Constipation Sodium Chloride () 10 - 40 ml IV UD PRN PRN Reason: SALINE FLUSH Last Admin: 07/29/19 08:06 Dose: 10 ml Documented by: Sucralfate (Carafate) 1 gm PO 1HR_ACHS [facility] Last Admin: 07/29/19 05:18 Dose: Not Given Documented by: STROKE Vital Signs/Narrative: Vital Signs Temp Pulse Resp BP Pulse Ox 07/29/19 08:23 99.2 F H 72 18 108/42 L 07/29/19 08:00 18 07/29/19 07:19 75 18 94 07/29/19 06:59 71 Medical Necessity - Tobacco Use Smoking Status: Former smoker Tobacco Use: Cigars Assessment/Plan All Active Problems (Last Updated 07/27/19 @ 17:44 by Luz Ness MD) Altered mental state (Acute) Community acquired pneumonia (Acute) Hypoxia (Acute) In brief, patient is a 79-year-old gentleman who presented with progressive shortness of breath and assessment of acute congestive heart failure made admitted to a monitored bed for further management. There was also a question of infiltrate on patient checks x-ray obtained on admission patient was therefore started on Levaquin and Zosyn. 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 Acute dyspnea ?Secondary to combination of community-acquired pneumonia as well as congestive heart failure ?07/29/2019 patient clinical condition has deteriorated despite optimal treatment. Case was discussed with family regarding patient worse prognosis. Did initiate conversations regarding palliative care/hospice. Plan is to initiate symptom management order set if family agrees to proceed with palliative care/hospice/end-of-life care 2. Acute congestive heart failure with preserved ejection fraction placed on Lasix without much improvement 3. Suspected community-acquired pneumonia on optimal medical therapy patient condition however continues to deteriorate 4. Morbid obesity with BMI of 40.9 patient has been counseled on weight reduction the day prior 5. Diabetes mellitus type 2: Did continue with home regimen in addition to Accu-Cheks before meals and at bedtime with sliding scale coverage 6. Dyslipidemia; on statin therapy 7. Nonalcoholic fatty liver disease 8. Hypothyroidism: On levothyroxine 9. Thrombocytopenia secondary to patient nonalcoholic fatty liver disease 10. Acute kidney injury suspected to be cardiorenal kidney function continues to deteriorate despite optimal treatment 11. Hyperkalemia secondary to patient's acute kidney injury patient potassium level continues to rise despite receiving appropriate treatment 12. Chronic kidney disease stage III ; was seen in consultation by nephrology 13. Anemia secondary to anemia of chronic disorder; monitoring H&H 14. Paroxysmal atrial fibrillation Code Visit Inpatient E&M: 22584 Subs Hosp L3
--- NOTE | 2019-07-29 09:17 | NURSING ---
daughter jeff called and informed of pt's decline per dr. monzon request and need to think about end of care options/hospice. daughter tearful but aware and will call other siblings to see about coming to decision.
[2019-07-29 09:53] LABS: Potassium 6.3 mmol/L (3.5-5.1)
[2019-07-29] MEDS: Furosemide 40 MG/4 ML Vial IV (10:51)
[2019-07-29] MEDS: levoFLOXacin IV 250 MG/50 ML BAG 50 MG IV (11:04)
--- NOTE | 2019-07-29 11:08 | NURSING ---
1100-daughter called again for pt's decline in resp status. pt with more o2 demand and more head bobbing now and resp rate at 28. no answer and message left.
--- NOTE | 2019-07-29 11:11 | NURSING ---
spoke with pt's son and told of decline since spoke with sister this am and is coming in.
--- NOTE | 2019-07-29 12:12 | DS.PCM_ITS ---
Discharge Date and Diagnosis - Problem List Patient Problems: Active and Suspected Problems (Last Updated 07/27/19 @ 17:44 by Luz Ness MD) Altered mental state (Acute) Date of Admission: 07/27/19 Date of Discharge: 07/29/19 - Primary Discharge Diagnosis Active and Suspected Problems (Last Updated 07/27/19 @ 17:44 by Luz Ness MD) Altered mental state (Acute) Community acquired pneumonia (Acute) Hypoxia (Acute) - Secondary Discharge Diagnosis Chronic Problems (Last Updated 07/27/19 @ 17:44 by Luz Ness MD) AVM (arteriovenous malformation) (Chronic) Gastric polyp (Chronic) CARBAJAL (nonalcoholic steatohepatitis) (Chronic) Hypothyroidism (Chronic) GERD (gastroesophageal reflux disease) (Chronic) Paroxysmal atrial fibrillation (Chronic) Morbid obesity (Chronic) Aortic stenosis (Chronic) Chronic anemia (Chronic) Type 2 diabetes mellitus (Chronic) Hyperlipidemia (Chronic) Liver cirrhosis (Chronic) Chronic kidney disease, stage III (moderate) (Chronic) HTN (hypertension) (Chronic) Hospital Course and Treatment Operations: None Summary of Care Provided: In brief, patient is a 79-year-old gentleman who presented with progressive shortness of breath and assessment of acute congestive heart failure made admitted to a monitored bed for further management. There was also a question o f infiltrate on patient checks x-ray obtained on admission patient was therefore started on Levaquin and Zosyn. 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 Acute dyspnea ?Secondary to combination of community-acquired pneumonia as well as congestive heart failure ?07/29/2019 patient clinical condition has deteriorated despite optimal treatment. Case was discussed with family regarding patient worse prognosis. Did initiate conversations regarding palliative care/hospice. Plan is to initiate symptom management order set if family agrees to proceed with palliative care/hospice/end-of-life care ?Patient CODE STATUS was changed from DNR CCA to DNR CC after discussion with family. Did consult palliative care/hospice. Patient was accepted for transfer to hospice in an inpatient medical facility. Condition at the time of grave 2. Acute congestive heart failure with preserved ejection fraction placed on Lasix without much improvement 3. Suspected community-acquired pneumonia on optimal medical therapy patient condition however continues to deteriorate 4. Morbid obesity with BMI of 40.9 patient has been counseled on weight reduction the day prior 5. Diabetes mellitus type 2: Did continue with home regimen in addition to Accu-Cheks before meals and at bedtime with sliding scale coverage 6. Dyslipidemia; on statin therapy 7. Nonalcoholic fatty liver disease 8. Hypothyroidism: On levothyroxine 9. Thrombocytopenia secondary to patient nonalcoholic fatty liver disease 10. Acute kidney injury suspected to be cardiorenal kidney function continues to deteriorate despite optimal treatment 11. Hyperkalemia secondary to patient's acute kidney injury patient potassium level continues to rise despite receiving appropriate treatment 12. Chronic kidney disease stage III ; was seen in consultation by nephrology 13. Anemia secondary to anemia of chronic disorder; monitoring H&H 14. Paroxysmal atrial fibrillation Patient Problems: Active and Suspected Problems (Last Updated 07/27/19 @ 17:44 by Luz Ness MD) Altered mental state (Acute) - Physical Exam Vitals/I&O's: Vital Signs Temp Pulse Resp BP Pulse Ox 99.1 F 72 20 H 108/36 L 96 07/29/19 11:36 07/29/19 11:36 07/29/19 11:36 07/29/19 11:36 07/29/19 11:36 Oxygen Flow Rate (L/min) 8 Oxygen Delivery Method Venturi Mask Weight: 122.1 kg Body Mass Index (BMI) 40.9 Finger Stick Blood Glucose 132 Intake and Output for Last 24 Hours 07/27/19 07/28/19 07/29/19 23:59 23:59 23:59 Intake Total 305 / 445 1591.25 / 1616.25 185 / 185 Output Total 200 / 200 Balance 305 / 445 1391.25 / 1416.25 185 / 185 Microbiology Past 72 Hours 07/28/19 06:20 Urine, Catheterized Urine Culture - Preliminary Culture exhibits no growth. 07/27/19 15:40 Mucosa - Nose Influenza Types A,B Direct FA (JAMES) - Final Laboratory Results 07/28/19 06:40: TSH 1.97 07/28/19 17:51: POC Glucose 125 H 07/29/19 02:01: POC Glucose 135 H 07/29/19 05:10: WBC 9.6, RBC 2.44 L, Hgb 8.7 L, Hct 29.7 L, MCV 121.7 H, MCH 35.7 H, MCHC 29.3 L, RDW Std Deviation 91.6 H, RDW Coeff of Mt 20.2 H, Plt Count 100 L, MPV 12.7 H, Immature Gran % (Auto) 3.300 H, Neut % (Auto) 61.0, Lymph % (Auto) 12.3 L, [place] % (Auto) 22.2 H, Eos % (Auto) 0.8, Baso % (Auto) 0.4, Absolute Neuts (auto) 5.9, Absolute Lymphs (auto) 1.18, Nucleated RBC % 0.9, Differential Comment SCANNED, Anisocytosis 1+ 07/29/19 05:10: Sodium 140, Potassium 6.1 H*, Chloride 104, Carbon Dioxide 30.0, Anion Gap 6, BUN 79 H, Creatinine 2.96 H, Estim Creat Clear Calc 19.26, Est GFR (MDRD) Af Amer 26 L, Est GFR (MDRD) Non-Af 22 L, BUN/Creatinine Ratio 26.7 H, Glucose 146 H, Calcium 8.7, Total Bilirubin 1.20 H, AST 17, ALT 20, Alkaline Phosphatase 75, Total Protein 8.6 H, Albumin 3.4, Globulin 5.2 H, Albumin/Globulin Ratio 0.7 L 07/29/19 05:31: POC Glucose 135 H 07/29/19 09:30: Potassium 6.3 H* Current Medications Acetaminophen (Tylenol) 650 mg PO Q6H PRN PRN PRN Reason: Pain Score 1-3/Temp > 100.7 F Last Admin: 07/28/19 17:51 Dose: 650 mg Documented by: Albuterol/Ipratropium (Duoneb) 3 ml INHALATION Q6H.RT [facility] Last Admin: 07/29/19 07:19 Dose: 3 ml Documented by: Calamine/Phenol (Calmoseptine Ointment) 1 applic TOPICAL BID [facility]; Protocol Last Admin: 07/28/19 23:00 Dose: 1 applicatio Documented by: Dextrose (D50w Syringe) 0 gm IV X1 PRN; Protocol PRN Reason: Hypoglycemia Ferrous Sulfate (Ferrous Sulfate) 325 mg PO DAILYCM [facility] Last Admin: 07/29/19 08:16 Dose: Not Given Documented by: Furosemide (Lasix) 40 mg IV BID@1000,1800 [facility] Last Admin: 07/29/19 10:51 Dose: 40 mg Documented by: Glucagon () 1 mg IM .X1 PRN PRN Reason: Hypoglycemia Piperacillin Sod/Tazobactam (Sod 3.375 gm/ Sodium Chloride) 50 mls @ 12.5 mls/hr IV Q8 [facility] Last Infusion: 07/29/19 10:36 Dose: Infused Documented by: Levofloxacin (Levaquin Iv) 250 mg in 50 mls @ 50 mls/hr IV Q24 [facility] Last Admin: 07/29/19 11:04 Dose: 50 mls/hr Documented by: Sodium Chloride () 250 mls @ 15 mls/hr IV .[id number] PRN PRN Reason: Saline Flush Last Infusion: 07/28/19 18:06 Dose: 15 mls/hr Documented by: Insulin Human Lispro (Humalog Kwikpen (Bkc)) 0 unit SC Q6 [facility]; Protocol Last Admin: 07/29/19 05:34 Dose: Not Given Documented by: Lactulose (Chronulac, Cephulac) 20 gm PO Q4 [facility] Last Admin: 07/29/19 11:26 Dose: Not Given Documented by: Levothyroxine Sodium (Synthroid) 25 mcg PO DAILY@0600 [facility] Last Admin: 07/29/19 05:18 Dose: Not Given Documented by: Nadolol (Corgard) 40 mg PO DAILY [facility] Last Admin: 07/29/19 11:26 Dose: Not Given Documented by: Ondansetron HCl (Zofran) 4 mg IV Q8H PRN PRN PRN Reason: NAUSEA/VOMITING Pantoprazole Sodium (Protonix) 40 mg PO BID [facility] Last Admin: 07/29/19 11:27 Dose: Not Given Documented by: Rifaximin (Xifaxan) 550 mg PO BID [facility] Last Admin: 07/29/19 11:27 Dose: Not Given Documented by: Senna/Docusate Sodium (Senokot-S, Ada-Colace) 2 tablet PO BID PRN PRN PRN Reason: Constipation Sodium Chloride () 10 - 40 ml IV UD PRN PRN Reason: SALINE FLUSH Last Admin: 07/29/19 08:06 Dose: 10 ml Documented by: Sucralfate (Carafate) 1 gm PO 1HR_ACHS [facility] Last Admin: 07/29/19 11:27 Dose: Not Given Documented by: Home Medications: Medications to take at Discharge Levothyroxine [Synthroid] 25 mcg PO DAILY 11/23/16 Pantoprazole Sodium [Protonix] 40 mg PO BID 11/23/16 Rifaximin [Xifaxan] 550 mg PO BID 11/23/16 Simvastatin [Zocor] 20 mg PO DAILY 11/23/16 Multivit-Min/FA/Lycopen/Lutein [Centrum Silver Men Tablet] 1 ea PO DAILY 12/01/18 Nadolol [Corgard (Beta Reggie)] 40 mg PO DAILY 12/01/18 Sucralfate [Carafate] 1 gm PO 4X/DAY 04/28/19 Calcium Carbonate [Tums] 500 mg PO TIDCM PRN tab 05/17/19 Furosemide [Lasix] 40 mg PO BID #60 tab 05/17/19 Nystatin Powder [Mycostatin Powder] 1 applic TOPICAL TID bottle 05/17/19 insulin glargine (U-100) 100 unit/mL (3 mL) subcutaneous pen 12 unit SC DAILY@0800 ml 07/09/19 insulin lispro (U-100) 100 unit/mL subcutaneous cartridge See Rx Instructions SC .COMPLEX 07/09/19 lactulose 10 gram/15 mL oral solution 30 ml PO BID 07/09/19 spironolactone 100 mg tablet 200 mg PO DAILY tab 07/09/19 Acetaminophen [Tylenol] 500 mg PO Q8H PRN PRN 07/27/19 Ferrous Sulfate 325 mg PO DAILY 07/27/19 Insulin Glargine,Hum.rec.anlog [Lantus Solostar] 15 unit SQ DAILY@199907/27/19 Methylcellulose [Fiber] 500 mg PO DAILY 07/27/19 Primary Care Physician: Kayla Bernstein NP-C [Primary Care Provider] - Please Follow Up With: Kayal Bernstein NP-C Medical Necessity - Tobacco Use Smoking Status: Former smoker Tobacco Use: Cigars Meaningful Use Info Meaningful Use Diagnoses (Choose all that apply): CHF - CHF CHRISTIANO/ARB ordered at discharge?: No Reason CHRISTIANO/ARB not ordered?: Worsening renal function Documented LVEF (%): 60 Code Visit Inpatient E&M: 49319 Disch Hosp
[2019-07-29 12:16] LABS: Bedside Glucose 131 mg/dL (70-110)
[2019-07-29] MEDS: Menthol/Lanolin/Calamine/Znox 113 GM Tube 1 APPLIC TOPICAL (12:19)
--- NOTE | 2019-07-29 12:20 | NURSING ---
pt iv sl'd and belongings packed for transfer to hospice. dr houston spoke with dr. nino and report called by this rn. son and daughter at bedside. pt maintaining at 96% on 8l via mask. code status changed to dnr cc. family aware of hopsice and change in care and receptive
--- NOTE | 2019-07-29 12:24 | CASEMGMT ---
RN said patient is not doing well. She spoke with family and they are on their way in to the hospital. Patient's daughter arrived. EMMIE spoke with her and she did want [facility] to evaluate patient for the inpatient unit if he would be able to make it to the inpatient unit or if he should stay at [facility]. EMMIE called [facility] and made a referral. They will send a nurse over to evaluate patient and Dr Olsen would like Dr Joyce to call her to discuss patient. EMMIE passed along this information to RN and discharge rn who notified physician. EMMIE also spoke with patient's daughter, Anthony and let her know. EMMIE then received a call from Yessica at Hospice and said the physicians spoke and patient is okay to transport to the inpatient unit. EMMIE called and arranged transport for patient and they will be on their way to pick him up. EMMIE notified RN, patient's daughter, son, and Yessica at [facility]. EMMIE also printed directions to Hospice for patient's daughter. Plan: d/c to [facility] Inpatient Unit. Kate ALEJANDRA MSW
== END 2019-07-29 12:57 | disposition hospice, inpatient (51) | DRG 291 ==
LOC: ED 17:24 → PCU 17:44
PROVIDERS: Physician Assistant; Admitting Provider Hospitalist; Emergency Provider Emergency Medicine; Family Provider Nurse Practitioner Family; PCP Nurse Practitioner Family; Referring Provider Hospitalist; Visit Provider Internal Medicine
DX: I13.0 Hypertensive heart and chronic kidney disease with heart failure and stage 1 through stage 4 chronic kidney disease, or unspecified chronic kidney disease (principal); I50.31 Acute diastolic (congestive) heart failure; J18.9 Pneumonia, unspecified organism; N17.9 Acute kidney failure, unspecified; Z68.41 Body mass index [BMI] 40.0-44.9, adult; E78.5 Hyperlipidemia, unspecified; E03.9 Hypothyroidism, unspecified; N18.3 Chronic kidney disease, stage 3 (moderate); I48.0 Paroxysmal atrial fibrillation; K74.60 Unspecified cirrhosis of liver; D69.59 Other secondary thrombocytopenia; K21.9 Gastro-esophageal reflux disease without esophagitis; E11.22 Type 2 diabetes mellitus with diabetic chronic kidney disease; K75.81 Nonalcoholic steatohepatitis (NASH); Z51.5 Encounter for palliative care; Z66 Do not resuscitate; R09.02 Hypoxemia; D63.8 Anemia in other chronic diseases classified elsewhere; E66.01 Morbid (severe) obesity due to excess calories; Z87.891 Personal history of nicotine dependence; I35.0 Nonrheumatic aortic (valve) stenosis; Z79.4 Long term (current) use of insulin
CPT/HCPCS: 36415; 71046; 74022; 80048; 80053; 80076; 81001; 82140; 82607; 82746; 82962; 83540; 83550; 83605; 83880; 84132; 84443; 84484; 85025; 87040; 87086; 87633; 87804; 92610; 93005; 94640; 94668; 97163; 97166; 99251; 99285; J7050; J7120; A4216; G0463; J0610; J1940